=== PATIENT | female | born 1935 | race Caucasian/White ===

== ENCOUNTER → 2018-10-12 11:13 | Outpatient (CLI) | payer MEDICARE, SELFPAY ==
[2018-10-12 12:23] LABS: Absolute Lymphocyte Count 2.08 X10^3/ul (0.83-4.51); Absolute Neutrophil Count 3.8 X10^3/uL (2.0-7.7); Basophil# 0.03 X10^3/uL; Basophil% 0.5 % (0-1); Eosinophil# 0.12 X10^3/uL; Eosinophils% 1.9 % (0-5); Hematocrit 42.7 % (37-47); Hemoglobin 13.9 g/dl (12.0-15.0); Lymphocyte # 2.08 X10^3/ul (4.0); Lymphocyte % 32.2 % (19-41); Mean Corp Hgb Conc 32.6 g/gl (32-36); Mean Corpuscular Hgb 30.3 pg (27.0-32.0); Mean Corpuscular Volume 93.2 fL (81-99); Mean Platelet Vol. 10.7 fl (6.2-12.0); Monocyte# 0.44 X10^3/uL; Monocyte% 6.8 % (0-10); Neutrophil # 3.78 X10^3/uL (2.7-7.7); Neutrophil % 58.6 % (47-70); Platelet Count 195 K/mm3 (150-450); RBC Distribution Width CV 12.9 % (11.6-14.6); RBC Distribution Width SD 43.9 fl (35.1-43.9); Red Blood Count 4.58 M/mm3 (4.2-5.4); White Blood Count 6.5 K/mm3 (4.4-11.0)
[2018-10-12 12:43] LABS: POSITIVE COUNT NO; POSITIVE DIFFERENTIAL NO; POSITIVE MORPHOLOGY NO
[2018-10-12 12:59] LABS: ALB/GLOB Ratio 1.1 RATIO (0.9-2.4); AST(SGOT) 21 U/L (15-37); Alanine Aminotransfer ALT/SGPT 29 U/L (13-56); Albumin, Serum 3.8 g/dL (3.2-5.0); Alkaline Phosphatase 66 U/L (45-117); Anion Gap 7 (5-15); BUN 13 mg/dL (7-18); BUN/Creat Ratio 17.5 RATIO (10-20); Calcium,Total 8.7 mg/dL (8.5-10.1); Chloride 104 mmol/L (98-107); Creatinine, Serum 0.74 mg/dL (0.55-1.02); EST Glomerular Filtration Rate 80 mL/min (>60); Est Glom Filt Rate - Afr Amer 96 mL/min (>60); Globulin 3.6 g/dL (2.2-4.2); Glucose 121 mg/dL (74-106); Potassium 3.9 mmol/L (3.5-5.1); Protein, Total 7.4 g/dL (6.4-8.2); Sodium Level 139 mmol/L (136-145); Thyroid Stim Hormone (TSH) 0.36 uIU/mL (0.358-3.74)
--- OUTSIDE RECORDS SUMMARY | 2018-11-24 02:55 | XMS RPT_ITS | Clinical Summary ---
:1935 Author Organization [facility], [facility] Address [address] [place] [address] Phone Care Team Providers Name Role Phone Kilo Sr Unavailable Conditions or Problems Problem Name Problem Onset Status Entry Provider Comment Standard Annotate Code Date Date Description Strain of S76.011A Active Kilo Danielle Strain of muscle, fascia (ICD-10-C 05/04 05/04 Holger GAINES muscle, fascia and tendon of M) and tendon of right hip, right hip, initial initial encounter encounter Contusion of S30.0xxA Active Kilo Danielle Contusion of lower back and (ICD-10-C 05/04 05/04 Holger GAINES lower back and pelvis, initial M) pelvis, initial encounter encounter Sciatica [id number] Active Kilo Danielle Sciatica (SNOMED 05/04 05/[address]) 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-10-C 01/01 [place] tis, UNSPECIFIED SITE M) 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 HYPERTENSION 77307238 Active Esther Hypertensive (SNOMED 01/[address]) LINING 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 HYPOTHYROIDISM 46894257 Active Esther Hypothyroidism (SNOMED [address]) 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 INSERTER Medications Medication Instructions Start Stop Generic Name NDC Provider Date Date NAPROXEN 500 MG 1 tablet twice NAPROXEN 90816737386 Kilo Danielle TABS daily Holger GAINES BACLOFEN 10 MG 1 tablet 3 BACLOFEN 98613796813 Kilo Danielle TABS taimes a day Holger GAINES needed LEVOTHYROXINE One tablet by LEVOTHYROXINE 05568999084 Adelaide Ospina SODIUM 75 MCG TABS mouth daily SODIUM Jayme GAINES ATENOLOL 25 MG One tablet by ATENOLOL [id number] Adelaide E TABS mouth daily Jayme GAINES CYCLOBENZAPRINE 1 tablet 3 CYCLOBENZAPRINE 99516819454 Kilo Danielle HCL 10 MG TABS times a day HCL Holger GAINES needed LEVOTHROID 100 MCG One tablet by LEVOTHYROXINE 12256376263 Esther TABS mouth daily SODIUM [place] LINING INSERTER LORAZEPAM 0.5 MG One tablet by LORAZEPAM 44423778442 Esther TABS mouth twice [place] daily LINING INSERTER LORAZEPAM 0.5 MG One tablet by LORAZEPAM 84639670931 Kilo M TABS mouth twice 05/04 Holger GAINES daily Medications Administered No information available. Allergies, Adverse Reactions, Alerts Observed no known allergies at Results Date Name Value Unit Range Flag Description Clinical Lists Update: Preload POTASSIUM 3.7 mmol/L potassium, serum Lab Report: T4 T4, TOTAL 9.0 ug/dL 4.8-13.9 N thyroxine, serum, total Lab Report: TSH TSH 1.72 u[iU]/mL 0.358-3.74 N thyroid stimulating hormone, serum Office Visit: UC: low back contusion, right hip strain MEDS REVIEW Done Documentation of current medications (procedure) FALLRSKASSES No Fall risk assessment SMOK STATUS Never smoker Tobacco use [facility] Plan of Care Type Date Detail Appointment 03:00 PM Kilo GAINES, [address] [place] [address], [address], [place], [address], Pending order X-Ray, Hip, unilateral, with pelvis; 2-3 views Pending order X-Ray, Spine, Lumbosacral 2-3 views Procedures No information available. Vital Signs Date Name Value Unit Description BMI (Body Mass Index) 28.35 kg/m2 Body Mass Index [Ratio] Body Temperature 98.0 [degF] temperature E&M BP Diastolic 82 mm[Hg] blood pressure, diastolic - 8462-4 BP Systolic 126 mm[Hg] blood pressure, systolic - 8480-6 Heart Rate 61 /min pulse rate E&M - 8867-4 Height 62 [in_us] height E&M - 8302-2 O2 % BldC Oximetry 96 % oxygen saturation, oximetry Respiratory Rate 18 /min respiratory rate E&M - 9279-1 Weight Measured 155.0 [lb_av] weight E&M - 3141-9 Weight Measured 73.18 kg weight in kilograms E&M
--- OUTSIDE RECORDS SUMMARY | 2018-11-24 02:55 | XMS RPT_ITS ---
:1935 Author Organization [facility] Care Team Providers Name Role Phone Jose Fitzgerald Attending Unavailable Jose Fitzgerald Primary Care Unavailable Jose Fitzgerald Attending Unavailable Jose Fitzgerald Primary Care Unavailable PROBLEMS PROBLEMS DATE TYPE CONDITION / CODE ATTENDING STATUS SOURCE 10/12/2018 Unknown I10 - Essential LiaJose Active [place] (primary) [facility] hypertension / Hospital I10(ICD-10) Repository 10/12/2018 Unknown E03.9 - LiaJose Active [place] Hypothyroidism, [facility] unspecified / Hospital E03.9(ICD-10) Repository 12/02/2017 Unknown M79.601 - Pain in Jose Fitzgerald Active [place] right arm / [facility] M79.601(ICD-10) Hospital Repository PROCEDURES PROCEDURES No Procedure Records FoundRESULTS RESULTS CBC W/DIFF, AUTOMATED Collected: 10/12/2018 Status: F Source: [place] 11:14 AM [facility] REPOSITORY TYPE CODE TESTS RESULT OUT OF RANGE REFERENCE UNITS LAB L100.1000 4.4-11.0 K/mm3 Normal WBC 6.5 LAB L100.1200 4.2-5.4 M/mm3 Normal RBC 4.58 LAB L100.1300 12.0-15.0 g/dl Normal HGB 13.9 LAB L100.1400 37-47 % Normal HCT 42.7 LAB L100.1500 81-99 fL Normal MCV 93.2 LAB L100.1600 27.0-32.0 pg Normal MCH 30.3 LAB L100.1700 32-36 g/gl Normal MCHC 32.6 LAB L100.1810 11.6-14.6 % Normal RDW CV 12.9 LAB L100.1820 35.1-43.9 fl Normal RDW SD 43.9 LAB L100.1900 150-450 K/mm3 Normal PLT 195 LAB L100.2000 6.2-12.0 fl Normal MPV 10.7 LAB L100.2100 47-70 % Normal NEUT% 58.6 LAB L100.2200 19-41 % Normal LY% 32.2 LAB L100.2300 0-10 % Normal MONO% 6.8 LAB L100.2400 0-5 % Normal EO% 1.9 LAB L100.2500 0-1 % Normal BASO% 0.5 LAB L100.2550 0.0-0.9 % Normal IM GRAN % 0.000 Result Comment: IG% - Immature Granulocytes (promyelocytes, myelocytes and metamyelocytes) > 1% indicates that a LEFT SHIFT is Present. LAB L100.2620 2.0-7.7 X10 3/uL Normal Absolute Neut 3.8 LAB L100.2720 0.83-4.51 X10 3/ul Normal Absolute Lymph 2.08 Performed By: #### L100.0100 #### [facility] [address] [place], [address] COMPREHENSIVE METABOLIC Collected: 10/12/2018 Status: F Source: [facility] 11:14 AM [facility] REPOSITORY TYPE CODE TESTS RESULT OUT OF RANGE REFERENCE UNITS LAB L501.0100 74-106 mg/dL High GLU 121 Result Comment: Fasting Glucose result from 100 to 125 mg/dL suggests IMPAIRED HOMEOSTASIS per A.D.A. criteria. Please note revised GLUCOSE reference range effective 2017. LAB L501.1000 7-18 mg/dL Normal BUN 13 LAB L501.1100 0.55-1.02 mg/dL Normal CREAT,SERUM 0.74 Result Comment: The validity of the calculated GFR AND GFRAA in patients over 70 years has not been determined. Clinical correlation is essential. LAB L501.1110 >60 mL/min Normal EST GFR 80 Result Comment: Non- GFR Calc LAB L501.1115 >60 mL/min Normal EST GFR - AA 96 Result Comment: GFR Calc LAB L501.1300 10-20 RATIO Normal BUN/CRE 17.5 LAB L501.1500 6.4-8.2 g/dL T Normal PROT 7.4 LAB L501.1800 3.2-5.0 g/dL Normal ALB 3.8 LAB L501.1950 2.2-4.2 g/dL Normal GLOB 3.6 LAB L501.2000 0.9-2.4 RATIO Normal A/G 1.1 LAB L501.2200 8.5-10.1 mg/dL CA Normal 8.7 LAB L501.4100 15-37 U/L Normal AST 21 LAB L501.4305 45-117 U/L Normal ALK P 66 LAB L501.4405 13-56 U/L Normal ALT 29 LAB L501.4600 0.20-1.00 mg/dL T Normal BILI 0.50 LAB L501.5300 136-145 mmol/L NA Normal 139 LAB L501.5600 3.5-5.1 mmol/L K Normal 3.9 LAB L501.5900 98-107 mmol/L CL Normal 104 LAB L501.6100 21.0-32.0 mmol/L Normal CO2 28.0 LAB L501.6200 5-15 Normal GAP 7 Performed By: #### L500.4050, L501.9520 #### [facility] [address] [place], [address] THYROID STIM HORMONE Collected: 10/12/2018 Status: F Source: [place] (T[facility]) 11:14 AM [facility] REPOSITORY TYPE CODE TESTS RESULT OUT OF RANGE REFERENCE UNITS LAB L501.9520 0.358-3.74 uIU/mL Normal TSH 0.36 Performed By: #### L500.4050, L501.9520 #### [facility] [address] [place], [address] ERYTHROCYTE SED RATE Collected: 12/02/2017 Status: F Source: [place] 11:36 AM [facility] REPOSITORY TYPE CODE TESTS RESULT OUT OF RANGE REFERENCE UNITS LAB L102.0000 0-30 mm/hr Normal SED RATE 9 Performed By: #### L101.9900 #### [facility] [address] [place], [address] CRP Collected: 12/02/2017 Status: F Source: [place] 11:36 AM [facility] REPOSITORY TYPE CODE TESTS RESULT OUT OF RANGE REFERENCE UNITS LAB L501.6710 0.0-3.0 mg/L Normal < 2.90 C-REACTIVE PROT Result Comment: C-Reactive Protein (CRP) provides useful information for the diagnosis, therapy and monitoring of inflammatory processes and associated diseases. For the evaluation of Relative Risk for Cardiovascular Disease, a High Sensitivity CRP (HSCRP) should be ordered. Performed By: #### L501.6710 #### [facility] [address] [place], [address] ANTINUCLEAR ANTIBODIES Collected: 12/02/2017 Status: F Source: [place] DIRECT 11:36 AM [facility] REPOSITORY TYPE CODE TESTS RESULT OUT OF RANGE REFERENCE UNITS LAB L3100.5475 Negative Normal Negative KELLI-DIRECT Result Comment: Performed at: - [facility] [id number] Piping Drafter: Artie Rodriguez PhD, Phone: [phone] Performed By: #### L3100.5475 #### [facility] (refer to report for specific site) refer to report for address and phone number ALLERGIES ALLERGIES DATE TYPE / CODE NAME / CODE REACTION SEVERITY SOURCE 05/17/[address] [facility] Allergy/4160 Allergies/F00 [facility] [address](SNOMED 2986120(RXNOR Repository CT) M) ENCOUNTERS ENCOUNTERS ADMIT/DISCHARGE ACCOUNT ADMITTING ENCOUNTER LOCATION SOURCE NUMBER CLASS 10/12/2018 [id number] Ambulatory [place] 5 [facility] ing:BFHLAB Repository 12/02/2017 [id number] Ambulatory [place] 9 [facility] ing:BFHLAB Repository PAYERS PAYERS ENCOUNTER GUARANTOR PAYER SUBSCRIBER SOURCE 10/12/2018 Sarah Primary Sarah [place] [id number] Insurance:[facility] CainB: [id number]: Repository [address]Emt: (031) [id number] [phone] () Date:[id number] [place] [address]HC: 10/12/2018 Secondary NOT GIVENUNK [place] Insurance:SELF PAY [facility] Number: Effective Repository Date:2018-10-12 12/02/2017 Sarah Primary Sarah [id number] Insurance:[employer] BenDOB: [place] [id number] Number: Repository [id number]: (933) [id number] [phone] () Date:[id number], [place] [address]GD: 12/02/2017 Secondary NOT GIVENUNK [place] Insurance:SELF PAY [facility] Number: Effective Repository Date:2017-12-02
--- OUTSIDE RECORDS SUMMARY | 2018-11-24 02:55 | XMS RPT_ITS | Clinical Summary ---
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 HYPOTHYROIDISM 15070786 Active Esther Hypothyroidism (SNOMED [address]) 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 Medications Medication Instructions Start Stop Generic Name NDC Provider Date Date NAPROXEN 500 MG 1 tablet twice NAPROXEN 64851640422 Kilo Danielle TABS daily Holger GAINES BACLOFEN 10 MG 1 tablet 3 BACLOFEN 05321026808 Kilo Danielle TABS taimes a day Holger GAINES needed LEVOTHYROXINE One tablet by LEVOTHYROXINE 20763221882 Adelaide Ospina SODIUM 75 MCG TABS mouth daily SODIUM Jayme GAINES ATENOLOL 25 MG One tablet by ATENOLOL 09010367555 Adelaide E TABS mouth daily Jayme GAINES CYCLOBENZAPRINE 1 tablet 3 CYCLOBENZAPRINE 56951270210 Kilo Danielle HCL 10 MG TABS times a day HCL Holger GAINES needed LEVOTHROID 100 MCG One tablet by LEVOTHYROXINE 61152313227 Esther TABS mouth daily SODIUM [place] 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 Plan of Care Type Date Detail Pending order X-Ray, Hip, unilateral, with pelvis; [...]
== END ==
PROVIDERS: Family Provider Family Medicine; PCP Family Medicine; Visit Provider Family Medicine
DX: I10 Essential (primary) hypertension (principal); E03.9 Hypothyroidism, unspecified
CPT/HCPCS: 36415; 80053; 84443; 85025

== ENCOUNTER → 2019-03-04 10:10 | Outpatient (CLI) | payer MEDICARE, SELFPAY ==
[2019-03-04 13:17] LABS: Thyroid Stim Hormone (TSH) 1.03 uIU/mL (0.358-3.74)
== END ==
PROVIDERS: Family Provider Family Medicine; PCP Family Medicine; Visit Provider Family Medicine
DX: E03.9 Hypothyroidism, unspecified (principal)
CPT/HCPCS: 36415; 84443

== ENCOUNTER 2019-09-29 08:36 | Day surgery (SDC) | payer MEDICARE, SELFPAY ==
[2019-09-29 09:34] VITALS: BP 158/75; PULSE 74; RESP 16; TEMP 36.7; O2SAT 96; BMI 27.2
[2019-09-29] MEDS: Povidone Iodine 30 ML Opthalmic Sol 1 DRP (10:50)
[2019-09-29 11:25] VITALS: BP 145/76; BP 158/75; PULSE 47; RESP 16; TEMP 36.2; O2SAT 92
--- NOTE | 2019-09-29 11:26 | PCM.DC.CATCL ---
Allergies/Adverse Reactions: Allergies No Known Allergies Allergy (Verified 09/22/19 12:14) Medications to take at Discharge Atenolol [Tenormin] 12.5 mg PO DAILY 05/17/17 Levothyroxine [Synthroid] 75 mcg PO DAILY 05/17/17 Cataract Instructions: -Take a pain reliever such as Tylenol, Aspirin or Ibuprofen if needed for eye aching or pain. If this is not enough relief for you pain, call your doctor (or the doctor mason tender restoration labor), even at night. -You are scheduled for a follow-up appointment at [facility] the day after surgery. You should have someone drive you. -Transient pain and irritation are due to the incision that was made at the time of surgery and do not indicate any trouble. Our office numbers are . If there is no answer, or if it is after our normal business hours, call your surgeon. My home phone number is: Dr. Carly Harris INSTRUCTIONS FOLLOWING TOPICAL ANESTHETIC CATARACT SURGERY Protect operated eye with glasses or metal shield at all times. Instill one drop of Polytrim (or other antibiotic drop), one drop of Prednisolone and one drop of Acular in the operated eye four times a day (breakfast, lunch, dinner, and bedtime) until the doctor tells you to quit or decrease them. Wait 3-5 minutes between each drop. Please begin these immediately upon arriving at home. if your surgery is in t he afternoon, try to use the drops at least three more times the day of surgery and again the following morning before your appointment. INSTRUCTIONS FOLLOWING RETROBULBAR CATARACT SURGERY Keep the eye patch and metal shield on until you see your surgeon the day after surgery - these will be removed in the office that day. Do not drive while the patch is on your eye. You will be instructed about the use of drops for the operated eye at that visit. Primary Care Physician: Jessa Alberto MD [Primary Care Provider] -
--- NOTE | 2019-09-29 11:27 | OP.PCM_ITS ---
Report of Operation Date of Procedure: 09/29/19 Pre-Operative Diagnosis: Cataract OD Post-Operative Diagnosis: same Surgery/Procedure Performed:: PEM IOL OD Description of Surgical Findings:: cataract Type of Anesthesia:: MAC and Topical Anesth Estimated Blood Loss (mL): none Description of Procedure: Indications for Procedure: 84 yo female with history of worsening vision in the right eye secondary to cataract. After discussion of the risks, benefit, alternatives, of cataract surgery the patient agreed to proceed. Description of Procedure: The patient was brought to the operating room where a time out was performed prior to the start of the procedure. Anesthesia team induced light sedation. The eye was prepped and draped in the normal sterile fashion for eye surgery. A alek blade was used to create a paracentesis incision. Preservative free lidocaine, followed by viscoat was instilled into the anterior chamber. A keratome was used to create a clear corneal biplanar incision at the temporal limbus. A cystotome was used to begin the capsulorhexis which was completed in a continuous curvilenear fashion with forceps. BSS on a fisher cannula was used to hydrate beneath the lens capsule until the lens was noted to be freely mobile in the capsular bag. Phacoemulsification was used to remove the lens in a divide and conquer technique. The remaining cortical material was removed using irrigation and aspiration. The capsular bag was noted to be intact. provisc was used to inflate the capsular bag and a tecnis 22.5 diopter lens was placed into the capsular bag and adjusted using a maritza hook. The remaining viscoelastic was removed. The wounds were hydrated and a 10-0 nylon was used to secure the main incision. The incision was noted to be wate rtight with a weck cell sponge. The patient was taken to the recovery room with instructions to follow up in the clinic the following day. - Complications none - Admit VTE Documentation Reason prophylaxis not ordered:: Procedure Not Indicated - patient can ambulate
[2019-09-29 11:30] VITALS: BP 138/77; BP 158/75; PULSE 50; RESP 16; O2SAT 92
[2019-09-29 11:35] VITALS: BP 148/69; BP 158/75; PULSE 46; RESP 16; O2SAT 92
[2019-09-29 11:40] VITALS: BP 140/69; BP 158/75; PULSE 60; RESP 16; TEMP 36.1; O2SAT 94
[2019-09-29 12:35] VITALS: BP 158/75
== END 2019-09-29 12:37 | disposition home or self-care (01) ==
LOC: SDC 08:39 → AC 08:41
PROVIDERS: Family Provider Family Medicine; PCP Family Medicine; Referring Provider Ophthalmology; Visit Provider Ophthalmology
PROC: (CPT 66982; principal; 2019-09-29 10:20)
DX: H25.813 Combined forms of age-related cataract, bilateral (principal); H04.123 Dry eye syndrome of bilateral lacrimal glands; I10 Essential (primary) hypertension; Z78.0 Asymptomatic menopausal state; Z79.899 Other long term (current) drug therapy
CPT/HCPCS: 00142; 66982; J7120

== ENCOUNTER 2019-10-20 09:35 | Day surgery (SDC) | payer MEDICARE, SELFPAY ==
[2019-10-20 09:49] VITALS: BP 152/66; PULSE 59; RESP 16; TEMP 36.3; O2SAT 94; BMI 26.9
[2019-10-20] MEDS: Lactated Ringers 1,000 ML 100 ML IV (09:58)
[2019-10-20] MEDS: Tetracaine 0.5% Ophthalmic Bottle 1 DRP OP (11:03)
[2019-10-20] MEDS: Povidone Iodine 30 ML Opthalmic Sol 1 DRP (11:05)
--- NOTE | 2019-10-20 11:21 | DCINST_ITS ---
Allergies/Adverse Reactions: Allergies No Known Allergies Allergy (Verified 10/18/19 14:04) Medications to take at Discharge Atenolol [Tenormin] 12.5 mg PO DAILY 05/17/17 Levothyroxine [Synthroid] 75 mcg PO DAILY 05/17/17 Cataract Instructions: -Take a pain reliever such as Tylenol, Aspirin or Ibuprofen if needed for eye aching or pain. If this is not enough relief for you pain, call your doctor (or the doctor distribution transformer assembler), even at night. -You are scheduled for a follow-up appointment at [facility] the day after surgery. You should have someone drive you. -Transient pain and irritation are due to the incision that was made at the time of surgery and do not indicate any trouble. Our office numbers are . If there is no answer, or if it is after our normal business hours, call your surgeon. My home phone number is: Dr. Carly Harris INSTRUCTIONS FOLLOWING TOPICAL ANESTHETIC CATARACT SURGERY Protect operated eye with glasses or metal shield at all times. Instill one drop of Polytrim (or other antibiotic drop), one drop of Prednisolone and one drop of Acular in the operated eye four times a day (breakfast, lunch, dinner, and bedtime) until the doctor tells you to quit or decrease them. Wait 3-5 minutes between each drop. Please begin these immediately upon arriving at home. if your surgery is in t he afternoon, try to use the drops at least three more times the day of surgery and again the following morning before your appointment. INSTRUCTIONS FOLLOWING RETROBULBAR CATARACT SURGERY Keep the eye patch and metal shield on until you see your surgeon the day after surgery - these will be removed in the office that day. Do not drive while the patch is on your eye. You will be instructed about the use of drops for the operated eye at that visit. Primary Care Physician: Jessa Alberto MD [Primary Care Provider] -
[2019-10-20 11:24] VITALS: BP 130/82; BP 152/66; PULSE 58; RESP 16; TEMP 36.4; O2SAT 93
[2019-10-20 11:30] VITALS: BP 145/94; BP 152/66; PULSE 57; RESP 16; O2SAT 92
[2019-10-20 11:35] VITALS: BP 152/66; BP 159/79; PULSE 53; RESP 16; O2SAT 93
[2019-10-20 11:36] VITALS: BP 151/67; BP 152/66; PULSE 52; RESP 16; TEMP 36.4; O2SAT 93
[2019-10-20 11:50] VITALS: BP 152/66
--- NOTE | 2019-10-20 12:19 | OP.PCM_ITS ---
Report of Operation Date of Procedure: 10/20/19 Pre-Operative Diagnosis: Retained Lens Fragment Right Eye Post-Operative Diagnosis: same Surgery/Procedure Performed:: Aspiration of retained lens fragment right eye Description of Surgical Findings:: Indications for procedure: 74 yo female with history of previous cataract surgery, noted to have a retained lens fragment in the anterior chamber post operatively. We attempted to continue topical steroid to dissolve fragment but it persistent. Risks, benefits, alternatives of removal of lens fragment was discussed with patient and she agreed to proceed. Description of procedure: The patient was brought to the operating room where a time out was performed prior to the start of the procedure. The eye was prepped and draped in the usual sterile fashion for eye surgery. The suture from the m ain incision was cut. A cyclodialysis spatula was used to open the main incision and paracentesis. Preservative free lidocaine was instilled into the anterior chamber and the fragment was irrigated from the inferior angle and aspirated. The main incision and paracentesis were hydrated and the main incision was sutured close. She was taken to the recovery room in a stable condition with instructions to follow up in the clinic. Type of Anesthesia:: MAC and Topical Anesth Estimated Blood Loss (mL): none - Complications none - Admit VTE Documentation Reason prophylaxis not ordered:: Procedure Not Indicated - patient able to ambulate
== END 2019-10-20 12:03 | disposition home or self-care (01) ==
LOC: SDC 09:35 → AC 09:36
PROVIDERS: Family Provider Family Medicine; PCP Family Medicine; Referring Provider Ophthalmology; Visit Provider Ophthalmology
DX: H59.021 Cataract (lens) fragments in eye following cataract surgery, right eye (principal); I10 Essential (primary) hypertension; E07.9 Disorder of thyroid, unspecified; Z79.899 Other long term (current) drug therapy; Z78.0 Asymptomatic menopausal state; Z98.41 Cataract extraction status, right eye
CPT/HCPCS: 00142; 66840; J7120

== ENCOUNTER → 2019-10-25 08:37 | Outpatient (CLI) | payer MEDICARE, SELFPAY ==
[2019-10-20 09:49] VITALS: BMI 26.9
[2019-10-25 09:47] LABS: Absolute Lymphocyte Count 2.81 X10^3/uL (0.83-4.51); Absolute Neutrophil Count 3.7 X10^3/uL (2.0-7.7); Basophil# 0.04 X10^3/uL; Basophil% 0.5 % (0-1); Eosinophil# 0.21 X10^3/uL; Eosinophils% 2.8 % (0-5); Hematocrit 44.6 % (37-47); Hemoglobin 14.8 g/dL (12.0-15.0); Lymphocyte # 2.81 X10^3/ul (4.0); Mean Corp Hgb Conc 33.2 g/dL (32-36); Mean Corpuscular Hgb 31.6 pg (27.0-32.0); Mean Corpuscular Volume 95.1 fL (81-99); Monocyte# 0.64 X10^3/uL; Monocyte% 8.7 % (0-10); NRBC Flagged by Analyzer 0 % (0-5); Neutrophil # 3.67 X10^3/uL (2.7-7.7); Neutrophil % 49.7 % (47-70); Platelet Count 194 K/mm3 (150-450); RBC Distribution Width CV 12.2 % (11.6-14.6); RBC Distribution Width SD 42.6 fl (35.1-43.9); Red Blood Count 4.69 M/mm3 (4.2-5.4); White Blood Count 7.4 K/mm3 (4.4-11.0)
[2019-10-25 10:23] LABS: ALB/GLOB Ratio 1.1 RATIO (0.9-2.4); AST(SGOT) 26 U/L (15-37); Alanine Aminotransfer ALT/SGPT 33 U/L (13-56); Albumin, Serum 4.1 g/dL (3.2-5.0); Alkaline Phosphatase 68 U/L (45-117); Anion Gap 6 (5-15); BUN 14 mg/dL (7-18); BUN/Creat Ratio 16.6 RATIO (10-20); Calcium,Total 8.8 mg/dL (8.5-10.1); Chloride 106 mmol/L (98-107); Cholesterol 237 mg/dL (200); Creatinine, Serum 0.84 mg/dL (0.55-1.02); EST Glomerular Filtration Rate 68 mL/min (>60); Est Glom Filt Rate - Afr Amer 83 mL/min (>60); Globulin 3.6 g/dL (2.2-4.2); Glucose 117 mg/dL (74-106); High Density Lipoprotein 45 mg/dL; Protein, Total 7.7 g/dL (6.4-8.2); Sodium Level 140 mmol/L (136-145); Thyroid Stim Hormone (TSH) 2.56 uIU/mL (0.358-3.74); Triglycerides 212 mg/dL; Very Low Density Lipoprotein 42 mg/dL (5-40)
[2019-10-26 13:02] LABS: Hemoglobin A1c 6.5 % (4.2-6.3)
== END ==
PROVIDERS: Family Provider Family Medicine; PCP Family Medicine; Referring Provider Family Medicine; Visit Provider Family Medicine
DX: E03.9 Hypothyroidism, unspecified (principal); R73.01 Impaired fasting glucose; E78.5 Hyperlipidemia, unspecified
CPT/HCPCS: 36415; 80053; 80061; 83036; 84443; 85025

== ENCOUNTER → 2020-11-01 08:48 | Outpatient (CLI) | payer MEDICARE, SELFPAY ==
[2020-11-01 12:46] LABS: Absolute Neutrophil Count 5.4 X10^3/uL (2.0-7.7); Basophil# 0.05 X10^3/uL; Basophil% 0.6 % (0-1); Eosinophil# 0.21 X10^3/uL; Eosinophils% 2.7 % (0-5); Hematocrit 41.7 % (37-47); Lymphocyte % 19.2 % (19-41); Mean Corp Hgb Conc 33.6 g/dL (32-36); Mean Corpuscular Hgb 31.9 pg (27.0-32.0); Mean Platelet Vol. 11.5 fl (6.2-12.0); Monocyte# 0.65 X10^3/uL; Monocyte% 8.3 % (0-10); NRBC Flagged by Analyzer 0 % (0-5); Neutrophil % 68.9 % (47-70); Platelet Count 186 K/mm3 (150-450); RBC Distribution Width CV 12.4 % (11.6-14.6); Red Blood Count 4.39 M/mm3 (4.2-5.4); White Blood Count 7.8 K/mm3 (4.4-11.0)
[2020-11-01 13:01] LABS: ALB/GLOB Ratio 1.1 RATIO (0.9-2.4); AST(SGOT) 24 U/L (15-37); Alanine Aminotransfer ALT/SGPT 32 U/L (13-56); Albumin, Serum 3.8 g/dL (3.2-5.0); Alkaline Phosphatase 70 U/L (45-117); Anion Gap 9 (5-15); BUN 19 mg/dL (7-18); BUN/Creat Ratio 24.2 RATIO (10-20); Calcium,Total 8.7 mg/dL (8.5-10.1); Chloride 106 mmol/L (98-107); Cholesterol 209 mg/dL (200); Creatinine, Serum 0.78 mg/dL (0.55-1.02); EST Glomerular Filtration Rate 74 mL/min (>60); Est Glom Filt Rate - Afr Amer 90 mL/min (>60); Globulin 3.4 g/dL (2.2-4.2); Glucose 142 mg/dL (74-106); High Density Lipoprotein 39 mg/dL; Potassium 3.8 mmol/L (3.5-5.1); Protein, Total 7.2 g/dL (6.4-8.2); Sodium Level 140 mmol/L (136-145); Thyroid Stim Hormone (TSH) 1.44 uIU/mL (0.358-3.74); Triglycerides 191 mg/dL; Very Low Density Lipoprotein 38 mg/dL (5-40)
== END ==
PROVIDERS: PCP Family Medicine; Visit Provider Family Medicine
DX: I10 Essential (primary) hypertension (principal); E03.9 Hypothyroidism, unspecified; R73.03 Prediabetes
CPT/HCPCS: 36415; 80053; 80061; 84443; 85025

== ENCOUNTER 2021-10-11 12:00 | Inpatient (IN) | payer MEDICARE, SELFPAY ==
[2021-10-11] VITALS (16 sets, daily range): BP systolic 103–165; BP diastolic 69–93; PULSE 75–139; RESP 20–32; TEMP 36.6–36.8; O2SAT 66–97; BMI 26.5; BMI 26.7
--- NOTE | 2021-10-11 12:57 | EKG12_ITS ---
Test Reason : SOB Blood Pressure : / mmHG Vent. Rate : 089 BPM Atrial Rate : 089 BPM P-R Int : 198 ms QRS Dur : 128 ms QT Int : 418 ms P-R-T Axes : 048 104 028 degrees QTc Int : 508 ms Sinus rhythm with Premature supraventricular complexes Right bundle branch block Abnormal ECG Confirmed by MAR KILLIAN, YESY ([id number]), city editor NAPOLEON SAVAGE ([id number]) on 10/15/2021 8:54:28 AM Referred By: PITER/DANIEL Confirmed By:YESY MANUEL MD
--- NOTE | 2021-10-11 12:58 | EDS_ITS ---
HPI History of Present Illness Chief Complaint: Shortness of Breath Informant: patient and family Narrative Narrative: 86-year-old female arriving to the emergency department with shortness of breath. The patient states that she has been sick for 2 weeks. She had some runny nose and a cough. She states she has been very fatigued. Arriving in the emergency department was noted that she was 66% on room air. The patient denies any chest pain. She denies any known lung or cardiac illnesses. She denies any fever. She denies diarrhea but family notes that she has been having fever. She notes significantly decreased p.o. intake. Patient is unvaccinated against Covid [facility] Medical History Hypertension Hypothyroidism Home Medications atenolol [Tenormin] 12.5 mg PO DAILY 05/17/17 [History Last Taken 10/20/19] levothyroxine 75 mcg PO DAILY 05/17/17 [History Last Taken 09/29/19 0730] Allergy/AdvReac Type Severity Reaction Status Date / Time No Known Allergies Allergy Verified 10/11/21 12:14 Social History (Updated 10/11/21 @ 12:[address] Colin Mccarthy DO) Smoking Status: Never smoker substance use type: does not use ROS ROS ED Constitutional Constitutional ED: Denies chills, fever(s) or weight loss Eyes Eyes: Denies change in vision or diplopia ENT ENT ED: Reports rhinorrhea; Denies ear pain or sore throat Cardiovascular Cardiovascular: Denies chest pain, orthopnea, palpitations or racing heartbeat Respiratory/Chest Respiratory/Chest: Reports cough, dyspnea and dyspnea on exertion; Denies orthopnea Gastrointestinal Gastrointestinal: Denies abdominal pain, diarrhea, nausea or vomiting Genitourinary Genitourinary ED: Denies dysuria, hematuria or urinary frequency Musculoskeletal Musculoskeletal: Denies arthralgias or myalgias Integumentary Denies abscess or rash Neurologic Neurologic: Denies headache(s) or weakness Psychiatric Psychiatric: Denies anxiety, depression, suicidal ideation or suicidal thoughts Endocrine Endocrinology: Denies polydipsia, polyphagia or polyuria Allergic/Immunologic Allergic/Immunologic ED: Denies mouth swelling, tongue swelling or urticaria EXAM Physical Exam Const Vital Signs: 10/11/21 12:07 10/11/21 12:45 10/11/21 12:46 Temperature 98 F 98 F Temperature Source Temporal Temporal Pulse Rate 101 H 109 H 109 H Respiratory Rate 30 H 32 H 32 H Respiratory Effort Short of Breath Labored Blood Pressure 103/90 H 151/81 H Blood Pressure Mean 94 104 Pulse Ox 66 95 95 Oxygen Delivery Method Room Air Nasal Cannula Nasal Cannula Oxygen Flow Rate (L/min) 12 12 10/11/21 13:14 10/11/21 13:20 10/11/21 13:36 Temperature 98 F Temperature Source Temporal Pulse Rate 139 H 139 H 86 Respiratory Rate 32 H 28 H Respiratory Effort Blood Pressure 151/81 H 144/84 H Blood Pressure Mean 104 104 Pulse Ox 91 93 Oxygen Delivery Method Nasal Cannula Nasal Cannula Nasal Cannula Oxygen Flow Rate (L/min) 15 13 15 Positive well nourished and well developed General Appearance ED: well developed HEENT Reports normocephalic, head/scalp atraumatic, TM's clear and dry mucous membranes atraumatic Tympanic Membrane ED: Yes TM's clear Mouth ED: Yes dry mucous membranes Mouth: dry mucous membranes Eyes PERRL and EOMs intact bilaterally Neck no lymphadenopathy, supple and no JVD Resp clear to auscultation bilaterally Resp Narrative: Patient is tachypneic Cardio regular rhythm and no murmurs Rate: tachycardic GI normal to inspection, nondistended, normoactive bowel sounds and non-tender Palpation: soft; Negative for rebound tenderness present Back/Spine no CVA tenderness and normal ROM Extremity normal to inspection General Extremety ED: Negative for edema General Extremity: Negative for edema Neuro oriented x3 and CN's II-XII intact bilaterally Sensorium / Orientation: alert Motor Exam: strength 5/5 throughout Psych mental status grossly normal Mood & Affect: Negative for depressed or tearful Skin no rashes or lesions noted and no wounds MDM MDM MDM Narrative Medical decision making narrative: My interpretation of the chest x-ray is multifocal infiltrates. White count 10.2 hemoglobin 15.1 with platelets of 193. D-dimer significantly elevated at 10.5 beta natruretic peptide is 306. Normal creatinine. Potassium 3.1. She received 40 mEq p.o. Lactic acid is elevated at 3.8. I think this is most likely due to hypoxemia rather than shock. CTA of the chest demonstrates pulmonary embolisms and findings consistent with COVID-19 pneumonitis. Rapid Covid is negative so a PCR was ordered. Patient was given Decadron and started on a heparin drip. There is some evidence of right heart strain. Her troponin is negative and her natruretic peptide is 300. She is not hypotensive and her heart rate has come down into the 80s. I do not think she needs alteplase at this time. Patient will be admitted Lab Data Attestation: I reviewed the patient's lab results. Labs: Laboratory Results - last 24 hr 10/11/21 10/11/21 10/11/21 13:36 13:36 13:36 WBC 10.2 RBC 4.89 Hgb 15.1 H Hct 43.1 MCV 88.1 MCH 30.9 MCHC 35.0 RDW Std Deviation 40.8 RDW Coeff of Marguerite 12.6 Plt Count 193 MPV 10.5 Immature Gran % (Auto) 0.500 Neut % (Auto) 85.3 H Lymph % (Auto) 10.1 L [place] % (Auto) 4.0 Eos % (Auto) 0.0 Baso % (Auto) 0.1 Absolute Neuts (auto) 8.7 H Absolute Lymphs (auto) 1.03 Nucleated RBC % 0 D-Dimer Quant (PE/DVT) 10.54 H* Sodium Potassium Chloride Carbon Dioxide Anion Gap BUN Creatinine Estim Creat Clear Calc Est GFR (MDRD) Af Amer Est GFR (MDRD) Non-Af BUN/Creatinine Ratio Glucose Lactic Acid Calcium Total Bilirubin AST ALT Alkaline Phosphatase Troponin I High Sens B-Natriuretic Peptide 306.0 H Total Protein Albumin Globulin Albumin/Globulin Ratio 10/11/21 10/11/21 13:36 13:36 WBC RBC Hgb Hct MCV MCH MCHC RDW Std Deviation RDW Coeff of Marguerite Plt Count MPV Immature Gran % (Auto) Neut % (Auto) Lymph % (Auto) [place] % (Auto) Eos % (Auto) Baso % (Auto) Absolute Neuts (auto) Absolute Lymphs (auto) Nucleated RBC % D-Dimer Quant (PE/DVT) Sodium 136 Potassium 3.1 L Chloride 99 Carbon Dioxide 27.0 Anion Gap 10 BUN 21 H Creatinine 1.01 Estim Creat Clear Calc 33.69 Est GFR (MDRD) Af Amer 67 Est GFR (MDRD) Non-Af 55 L BUN/Creatinine Ratio 20.8 H Glucose 171 H Lactic Acid 3.8 H* Calcium 8.7 Total Bilirubin 1.20 H AST 31 ALT 25 Alkaline Phosphatase 58 Troponin I High Sens 24 B-Natriuretic Peptide Total Protein 7.4 Albumin 2.6 L Globulin 4.8 H Albumin/Globulin Ratio 0.5 L Radiography Diagnostic Testing: Clinical Impression(s) from Imaging Studies Chest X-Ray 10/11/21 13:40 IMPRESSION: Multilobar multifocal confluent opacities predominantly in a peripheral distribution. Findings likely related to atelectasis and infectious/inflammatory etiology and can be seen with multifocal atypical pneumonia. Correlation with COVID status recommended. Electronically Signed: Mp Ng MD at 14:21 EST Tel , Service support , Chest CTA 10/11/21 14:15 IMPRESSION: 1. Bilateral pulmonary embolism with some extension into the distal left main pulmonary artery. Suspect early right heart strain. 2. Multifocal infiltrates with features commonly reported with COVID pneumonia. N.B. : The above Results were Read Back by Chintan Fernandez MD (Brooks) to Colin Mccarthy MD, and understanding confirmed on 10/11/2021 14:39:01 (ET). Electronically Signed: Chintan Fernandez MD (Brooks) at 14:40 EST , Service support , ADDENDUM: 10/11/21 1447 IMPRESSION: 1. Bilateral pulmonary embolism with some extension into the distal left main pulmonary artery. Suspect early right heart strain. 2. Multifocal infiltrates with features commonly reported with COVID pneumonia. N.B. : The above Results were Read Back by Chintan Fernandez MD (Brooks) to Colin Mccarthy MD, and understanding confirmed on 10/11/2021 14:39:01 (ET). Electronically Signed: Chintan Fernandez MD (Brooks) at 14:40 EST , Service support , EKG Initial EKG: Attestation: I personally reviewed and interpreted this EKG as follows: Comments: Sinus rhythm with a ventricular rate of 89 bpm. Noted right bun dle branch block and PAC Discharge Plan Dx/Rx/DC Orders Clinical Impression: Acute hypoxemic respiratory failure, COVID-19, Bilateral pulmonary embolism, Acute hypokalemia Disposition Disposition: Acute Care Hospital [facility]
--- NOTE | 2021-10-11 13:40 | RAD_ITS ---
INDICATION: cough EXAMINATION/TECHNIQUE: X-RAY - XR Chest 1 View COMPARISON: None. FINDINGS: LINES/DEVICES: None. Mild cardiomegaly. Confluent opacities in the bilateral mid to lower lung zapata, predominantly in a peripheral distribution. No sizable pleural effusion or pneumothorax. Remote right-sided rib fractures. Severe right glenohumeral joint osteoarthritic changes. No acute osseous abnormality. RAD/Chest 1 View (Portable) IMPRESSION: Multilobar multifocal confluent opacities predominantly in a peripheral distribution. Findings likely related to atelectasis and infectious/inflammatory etiology and can be seen with multifocal atypical pneumonia. Correlation with COVID status recommended. Electronically Signed: Mp Ng MD at 14:21 EST Tel , Service support ,
[2021-10-11 13:42] LABS: Absolute Lymphocyte Count 1.03 X10^3/uL (0.83-4.51); Absolute Neutrophil Count 8.7 X10^3/uL (2.0-7.7); Basophil# 0.01 X10^3/uL; Basophil% 0.1 % (0-1); Hematocrit 43.1 % (37-47); Hemoglobin 15.1 g/dL (12.0-15.0); Lymphocyte # 1.03 X10^3/ul (0.83-4.51); Lymphocyte % 10.1 % (19-41); Mean Corpuscular Hgb 30.9 pg (27.0-32.0); Mean Corpuscular Volume 88.1 fL (81-99); Mean Platelet Vol. 10.5 fl (6.2-12.0); Monocyte# 0.41 X10^3/uL; NRBC Flagged by Analyzer 0 % (0-5); Neutrophil # 8.73 X10^3/uL (2.7-7.7); Neutrophil % 85.3 % (47-70); Platelet Count 193 K/mm3 (150-450); RBC Distribution Width CV 12.6 % (11.6-14.6); RBC Distribution Width SD 40.8 fl (35.1-43.9); Red Blood Count 4.89 M/mm3 (4.2-5.4); White Blood Count 10.2 K/mm3 (4.4-11.0)
[2021-10-11 14:03] LABS: D-Dimer Quantitative (DVT/PE) 10.54 FEU/ug/m (0.27-0.49)
[2021-10-11 14:04] LABS: ALB/GLOB Ratio 0.5 RATIO (0.9-2.4); AST(SGOT) 31 U/L (15-37); Alanine Aminotransfer ALT/SGPT 25 U/L (13-56); Albumin, Serum 2.6 g/dL (3.2-5.0); Alkaline Phosphatase 58 U/L (45-117); Anion Gap 10 (5-15); BUN 21 mg/dL (7-18); BUN/Creat Ratio 20.8 RATIO (10-20); Calcium,Total 8.7 mg/dL (8.5-10.1); Chloride 99 mmol/L (98-107); Creatinine, Serum 1.01 mg/dL (0.55-1.02); EST Glomerular Filtration Rate 55 mL/min (>60); Est Glom Filt Rate - Afr Amer 67 mL/min (>60); Estimated Creatinine Clearance 33.69 ml/min; Globulin 4.8 g/dL (2.2-4.2); Glucose 171 mg/dL (74-106); Potassium 3.1 mmol/L (3.5-5.1); Protein, Total 7.4 g/dL (6.4-8.2); Sodium Level 136 mmol/L (136-145); Troponin-I HS 24 pg/mL (3.0-54.0)
--- NOTE | 2021-10-11 14:15 | CT_ITS ---
STUDY: CTA CHEST REASON FOR EXAM: Female, 86 years old. Cough RADIATION DOSAGE (If Supplied By Facility): CTDIvol = ( 12.96 ) mGy, DLP = ( 420.76 ) mGycm TECHNIQUE: The examination was performed with the intravenous administration of IV 100mL Isovue-370. Post-processing of the angiographic images was performed, with multiplanar reformation and 3D reconstruction. Individualized dose optimization techniques were used for this CT. COMPARISON: None. FINDINGS: There are multiple segmental pulmonary emboli some of which are occlusive. Thrombus within the distal left main pulmonary artery on image 130 of series 2 but no saddle embolus. Right ventricle is slightly larger than the left with some reflux of contrast into the IVC. There is atherosclerotic calcification of the aortic arch with tortuosity. There is no demonstrated aortic dissection. There is cardiomegaly. There are calcifications of the coronary arteries. Normal mediastinum. Normal hilar regions. Multifocal peripheral dominant, groundglass and consolidative infiltrates with features commonly reported with COVID pneumonia. . Normal pleura. Normal chest wall structures. No destructive bony process. Well-defined low-density (Hounsfield units 5-6) lesion of the left adrenal gland measures 2.7 x 3.4 cm). ACR White Paper guidelines (Marisol et al. JACR 2017; 14(8):4328-8395) suggest no follow-up is necessary. CT/CTA Chest W/WO Contrast IMPRESSION: 1. Bilateral pulmonary embolism with some extension into the distal left main pulmonary artery. Suspect early right heart strain. 2. Multifocal infiltrates with features commonly reported with COVID pneumonia. N.B. : The above Results were Read Back by Chintan Fernandez MD (Brooks) to Colin Mccarthy MD, and understanding confirmed on 10/11/2021 14:39:01 (ET). Electronically Signed: Chintan Fernandez MD (Brooks) at 14:40 EST , Service support ,
[2021-10-11 14:17] LABS: Lactic Acid 3.8 mmol/L (0.4-1.9)
--- NOTE | 2021-10-11 14:39 | HP.PCM.HOS_ITS ---
HPI - General General Date of Admission: 10/11/21 Date of Service: 10/11/21 Chief Complaint: Cough, dyspnea x 2 weeks. HPI Narrative The patient is an 86 y/o F w/ PMHx: HTN, Hypothyroidism who presents to the [facility] ED on 10/11/21 with history of ongoing fatigue, malaise, dyspnea with cough and rhinorrhea starting over the last 2 weeks as well as a very throbbing constant frontal headache, progressively worsening prompting eventual ED presentation. Patient specifically denies any fevers, chills, body aches, nausea, emesis, diarrhea. Upon initial arrival in the ED patient was immediately noted to be 66% on room air. Patient denied any recent pleuritic chest pain of note. Unvaccinated COVID status. Work-up in the ED included initial assessment T 98, heart rate 101, BP 103/90, respiratory rate 30, 66% on room air eventually transitioning to a nonrebreather initially 12 L increasing up to 15 L most recently 93% on 15 L, CBC with WBC 10.2, hemoglobin 15.1, platelet 193 with left shift, D-dimer 10.54, CMP with potassium 3.1, BUN/creatinine 21/1.01, glucose 171, lactic acid 3.8, T bili 1.20, BNP 306, BNP 306, pending procalcitonin, CRP, CPK, Ferritin, LDH, high-sensitivity initial troponin 24, chest x-ray with multilobar multifocal concern opacities predominantly in the peripheral distribution consistent with Covid pneumonia, CTPA with bilateral pulmonary emboli with some extension of the distal left main pulmonary artery with suspected early heart strain, multifocal infiltrates consistent with Covid pneumonia, SARS rapid Covid antigen negative however patient has had symptoms for 2 weeks, Covid PCR pending. In the ED patient administered decadron, potassium 40 mEq, heparin drip initiated. [facility] Medical History (Updated 10/11/21 @ 15:[address] June Roche MD) Hypertension Hypothyroidism Overweight (BMI 25.0-29.9) Home Medications atenolol [Tenormin] 12.5 mg PO DAILY 05/17/17 [History Last Taken 10/20/19] levothyroxine 75 mcg PO DAILY 05/17/17 [History Last Taken 09/29/19 0730] Allergy/AdvReac Type Severity Reaction Status Date / Time No Known Allergies Allergy Verified 10/11/21 12:14 Family History (Updated 10/11/21 @ 15:[address] June Roche MD) Mother Cancer other (Patient denies any marked paternal family history including HD, DM, CA.) Surgical History (Updated 10/11/21 @ 15:[address] June Roche MD) S/P hysterectomy Social History (Updated 10/11/21 @ 15:[address] June Roche MD) household members: other details: Notes her son lives with her. Smoking Status: Never smoker alcohol intake: never substance use type: does not use ROS ROS Narrative Admission Review of Systems: CONSTITUTIONAL: No weight loss, fever, chills, + weakness or fatigue. HEENT: + Headache, rhinorrhea. Eyes: No visual loss, blurred vision, double vision or yellow sclerae. Ears, Nose, Throat: No hearing loss, sneezing. SKIN: No rash or itching, lesions, wounds. CARDIOVASCULAR: No chest pain, chest pressure or chest discomfort, palpitations, edema, orthopnea, syncopal events. RESPIRATORY: + shortness of breath, cough, No marked sputum, wheezing, hemoptysis. GASTROINTESTINAL: + anorexia, No nausea, vomiting, diarrhea, abdominal pain, melena, BRBPR. GENITOURINARY: No dysuria, frequency, urgency or retention. NEUROLOGICAL: + headache, No dizziness, syncope, paralysis, ataxia, numbness or tingling in the extremities, focal weakness, change in bowel or bladder control, seizure. MUSCULOSKELETAL: + muscle, back pain, joint pain or stiffness. HEMATOLOGIC: No anemia, bleeding or bruising. LYMPHATICS: No enlarged nodes. No history of splenectomy. PSYCHIATRIC: No history of depression or anxiety. ENDOCRINOLOGIC: No reports of sweating, cold or heat intolerance. No polyuria or polydipsia. ALLERGIES: No history of asthma, hives, eczema or rhinitis. Vital Signs Vital Signs Vital Signs: 10/11/21 12:07 10/11/21 12:45 10/11/21 12:46 Temperature 98 F 98 F Temperature Source Temporal Temporal Pulse Rate 101 H 109 H 109 H Respiratory Rate 30 H 32 H 32 H Respiratory Effort Short of Breath Labored Blood Pressure 103/90 H 151/81 H Blood Pressure Mean 94 104 Pulse Ox 66 95 95 Oxygen Delivery Method Room Air Nasal Cannula Nasal Cannula Oxygen Flow Rate (L/min) 12 12 10/11/21 13:14 10/11/21 13:20 10/11/21 13:36 Temperature 98 F Temperature Source Temporal Pulse Rate 139 H 139 H 86 Respiratory Rate 32 H 28 H Respiratory Effort Blood Pressure 151/81 H 144/84 H Blood Pressure Mean 104 104 Pulse Ox 91 93 Oxygen Delivery Method Nasal Cannula Nasal Cannula Nasal Cannula Oxygen Flow Rate (L/min) 15 13 15 Weight Weight: 150 lb Body Mass Index (BMI) 26.5 Physical Exam Narrative Physical Examination: General: Awake, alert, oriented x 3 and cooperative, seated upright in the ED bed, fatigued and ill-appearing, increased respiratory rate, currently on 15L. Skin: Normal color, normal turgor, no icterus, no cyanosis. HEENT: AT/NC, EOMI, PERRLA, dry MM, no carotid bruits or JVD noted. Lungs: Diffusely diminished, greater bases, increased respiratory rate, accessory muscle usage, evidence distress, no rales, ronchi or wheezing. Heart: Currently regular rate with regular rhythm; no gallop, rub audible. Abdomen: Soft, overweight, NTTP, ND, distant mildly hyperactive bowel sounds, no HSM. Extremities: No cyanosis, clubbing, or edema. Neurological: Patient awake, alert, oriented as noted, cognitive function intact; pupils equally reactive to light and accommodation, cranial nerves II- XII grossly normal, moving all 4 extremities, no focal deficits, strength severely global decrease secondary to acute presentation. Psychiatric: Affect appears fatigued, ill-appearing, respiratory compromise evident, no acute evidence of depressive or anxiety feelings. Results Lab / Micro Data Result Diagrams: 10/11/21 13:36 10/11/21 13:36 Labs: Laboratory Results - last 24 hr 10/11/21 13:36: D-Dimer Quant (PE/DVT) 10.54 H* 10/11/21 13:36: B-Natriuretic Peptide 306.0 H 10/11/21 13:36: WBC 10.2, RBC 4.89, Hgb 15.1 H, Hct 43.1, MCV 88.1, MCH 30.9, MCHC 35.0, RDW Std Deviation 40.8, RDW Coeff of Marguerite 12.6, Plt Count 193, MPV 10.5, Immature Gran % (Auto) 0.500, Neut % (Auto) 85.3 H, Lymph % (Auto) 10.1 L, [place] % (Auto) 4.0, Eos % (Auto) 0.0, Baso % (Auto) 0.1, Absolute Neuts (auto) 8.7 H, Absolute Lymphs (auto) 1.03, Nucleated RBC % 0 10/11/21 13:36: Sodium 136, Potassium 3.1 L, Chloride 99, Carbon Dioxide 27.0, Anion Gap 10, BUN 21 H, Creatinine 1.01, Estim Creat Clear Calc 33.69, Est GFR (MDRD) Af Amer 67, Est GFR (MDRD) Non-Af 55 L, BUN/Creatinine Ratio 20.8 H, Glucose 171 H, Calcium 8.7, Total Bilirubin 1.20 H, AST 31, ALT 25, Alkaline Phosphatase 58, Troponin I High Sens 24, Total Protein 7.4, Albumin 2.6 L, Globulin 4.8 H, Albumin/Globulin Ratio 0.5 L 10/11/21 13:36: Lactic Acid 3.8 H* Micro: Microbiology 10/11/21 13:30 Nasal Secretion SARS-CoV-2 Antigen (Rapid) - Final Radiology Impression Chest X-Ray 10/11/21 13:40 IMPRESSION: Multilobar multifocal confluent opacities predominantly in a peripheral distribution. Findings likely related to atelectasis and infectious/inflammatory etiology and can be seen with multifocal atypical pneumonia. Correlation with COVID status recommended. Electronically Signed: Mp Ng MD at 14:21 EST Tel , Service support , Assessment & Plan Assessment/Plan (1) Acute hypoxemic respiratory failure: (2) COVID-19: (3) Bilateral pulmonary embolism: PLAN: The patient is an 86 y/o F w/ PMHx: HTN, Hypothyroidism who presents to the [facility] ED on 10/11/21 with history of ongoing fatigue, malaise, dyspnea with cough and rhinorrhea starting over the last 2 weeks as well as a very throbbing constant frontal headache, progressively worsening prompting eventual ED presentation. #1. Acute Hypoxic Respiratory Failure secondary to Acute Bilateral Pneumonia secondary to Suspected Acute Viral Syndrome, COVID-19: Will admit to the PCU, maintain on COVID precautions pending COVID PCR results, will maintain on oxygen with wean as tolerated to room air, PRN albuterol, HOB, IS parameters w/ pending sputum cultures, respiratory viral panel and urine antigens, pending procalcitonin, CRP, CPK, Ferritin, LDH, will cycle cardiac enzymes given strain potential, continue supportive care including q 2 hour turning including prone given no prone bed availability and judicious hydration, closely monitor for worsening status for ARDS and multiorgan failure, will initiate and continue IV decadron x 10 doses, given presentation timeline not remdesivir candidate. Will consult infectious disease for consideration barcitinib given likely need for transition to airvo or BIPAP. #2. Acute BL Pulmonary Embolism with suspected Cardiac strain secondary to #1 (BL PNA COVID): EKG without acute findings, trop normal x 1, will maintain on cardiac telemetry, once quarantine complete will need to obtain ECHO, BNP. Will continue therapeutic heparin drip regimen with pending AM insurance oral regimen investigation. #3. Lactic acidosis: Lactic acid 3.8, likely secondary to acute presentation #1 secondary to hypoxemia, will continue treatment as noted and trend per facility protocol. #4. Hypokalemia: Admission K+ 3.1, magnesium level requested, supplementation given, repeat level in AM. #5. Hyperglycemia: Admission glucose 171, possibly stress response, will obtain hemoglobin A1c to be cautious. #6. Hypertension: Notes she discontinued her atenolol secondary to lightheadedness symptoms, will hold re-addition especially given #1 presentation, in interim PRN hydralazine. #7. Hypothyroidism: Continue home synthroid regimen, TSH pending. #8. DVT prophylaxis: SCDs, heparin drip as noted above. #9. CODE status: Patient does not have healthcare prep turning or living will in place. Given acute presentation #1 with acute hypoxic respiratory failure in the setting of bilateral pneumonia suspected secondary to acute COVID-19 and unvaccinated status, discussed CODE status at length including difference between FULL code, DNR-CCA and DNR-CC status. Following discussions about the differences in these status, requested DNR-CCA with allowance of intubation if necessary. Amenable to airvo and BIPAP. Advanced Care Planning Face to Face Time: 16 minutes. Charges/Coding Visit Charges Inpatient E&M: 99048 Init Hosp L3 Procedures Hospitalists Procedures: 06100 Advncd Care Plan 30 Min
[2021-10-11 15:30] LABS: International Normalized Ratio 1.2
[2021-10-11] MEDS: dexAMETHasone 4 MG Tablet 6 MG PO (15:30)
[2021-10-11] MEDS: Heparin Injection (Vial) 5,000 UNIT/ML VIAL 4500 UNIT IV (15:30)
[2021-10-11] MEDS: Potassium Chloride Oral Tablet 20 MEQ 40 MEQ PO (15:30)
[2021-10-11 15:31] LABS: Partial Thromboplast Time 30.3 Seconds (24.1-36.2)
[2021-10-11] MEDS: HEPARIN/D5w 25,000 UNITS 25,000 UNITS/250 ML IV.SOLN. 10 UNITS IV (15:31)
[2021-10-11 15:43] LABS: CPK Total, Creatine Kinase 66 U/L (26-192); Ferritin 809 ng/mL (8-252); LDH 381 U/L (84-246); Magnesium 2.1 mg/dL (1.6-2.6)
[2021-10-11 16:10] LABS: Fibrinogen 667 mg/dl (203-444)
[2021-10-11] MEDS: 0.9% Normal Saline 1,000 ML 100 ML IV (17:24)
[2021-10-11 17:27] LABS: Procalcitonin 0.15 ng/mL (0.00-0.09)
[2021-10-11 17:40] LABS: Reflex Lactate? Y
[2021-10-11 18:11] LABS: Troponin-I HS 26 pg/mL (3.0-54.0)
[2021-10-11 18:50] LABS: Lactic Acid 2.7 mmol/L (0.4-1.9)
[2021-10-11 20:04] LABS: Troponin-I HS 23 pg/mL (3.0-54.0)
[2021-10-11 21:43] LABS: Partial Thromboplast Time 80.5 Seconds (24.1-36.2)
[2021-10-11] MEDS: Insulin Lispro 100 UNIT/ML INSULN.PEN SC (21:44)
[2021-10-11 22:40] LABS: Bedside Glucose 185 mg/dL (70-110)
[2021-10-12] VITALS (20 sets, daily range): BP systolic 115–173; BP diastolic 56–90; PULSE 62–85; RESP 18–32; TEMP 36.4–36.8; O2SAT 89–96
[2021-10-12 04:24] LABS: Absolute Lymphocyte Count 1.12 X10^3/uL (0.83-4.51); Absolute Neutrophil Count 6.1 X10^3/uL (2.0-7.7); Basophil# 0.01 X10^3/uL; Basophil% 0.1 % (0-1); Hematocrit 36.5 % (37-47); Hemoglobin 12.4 g/dL (12.0-15.0); Lymphocyte # 1.12 X10^3/ul (0.83-4.51); Lymphocyte % 14.8 % (19-41); Mean Corpuscular Hgb 30.6 pg (27.0-32.0); Mean Corpuscular Volume 90.1 fL (81-99); Mean Platelet Vol. 10.6 fl (6.2-12.0); Monocyte# 0.34 X10^3/uL; Monocyte% 4.5 % (0-10); NRBC Flagged by Analyzer 0 % (0-5); Neutrophil # 6.06 X10^3/uL (2.7-7.7); Neutrophil % 80.2 % (47-70); Platelet Count 193 K/mm3 (150-450); RBC Distribution Width CV 12.6 % (11.6-14.6); Red Blood Count 4.05 M/mm3 (4.2-5.4); White Blood Count 7.6 K/mm3 (4.4-11.0)
[2021-10-12 04:36] LABS: Partial Thromboplast Time 57.7 Seconds (24.1-36.2)
[2021-10-12 04:49] LABS: ALB/GLOB Ratio 0.5 RATIO (0.9-2.4); AST(SGOT) 26 U/L (15-37); Alanine Aminotransfer ALT/SGPT 21 U/L (13-56); Albumin, Serum 2.1 g/dL (3.2-5.0); Alkaline Phosphatase 49 U/L (45-117); Anion Gap 5 (5-15); BUN 19 mg/dL (7-18); BUN/Creat Ratio 28.1 RATIO (10-20); Calcium,Total 7.9 mg/dL (8.5-10.1); Chloride 103 mmol/L (98-107); Creatinine, Serum 0.68 mg/dL (0.55-1.02); EST Glomerular Filtration Rate 88 mL/min (>60); Est Glom Filt Rate - Afr Amer 106 mL/min (>60); Estimated Creatinine Clearance 32.53 ml/min; Globulin 4.2 g/dL (2.2-4.2); Glucose 164 mg/dL (74-106); Potassium 3.5 mmol/L (3.5-5.1); Protein, Total 6.3 g/dL (6.4-8.2); Sodium Level 138 mmol/L (136-145)
--- NOTE | 2021-10-12 06:33 | PCM.PN.HOSP ---
Subjective Subjective Patient overnight with no acute distress per self and per nursing report. She states that she is coughing less and feels less short of breath but continues to remain on at least 10 L high flow and has continued increased respiratory rate, worse when she is exerting herself. Discussed again that patient status can certainly worsen and she understands and is continued to perform requested incentive spirometry and movement. Patient denies fevers, chills, nausea, emesis, abdominal pain, chest pain. Objective Data Objective Data Vital Signs: Vital Signs Temp Pulse Resp BP Pulse Ox 98.3 F 65 28 H 116/56 L 92 10/12/21 03:00 10/12/21 03:00 10/12/21 03:00 10/12/21 03:00 10/12/21 03:00 Oxygen Flow Rate (L/min) 10 Oxygen Delivery Method High Flow Weight: 151 lb 14.376 oz Body Mass Index (BMI) 26.7 Intake & Output: Intake and Output for Last 24 Hours 10/10/21 10/11/21 10/12/21 23:59 23:59 23:59 Intake Total 62.33 / 62.33 1000 / 1000 Balance 62.33 / 62.33 1000 / 1000 Lab / Micro Data Result Diagrams: 10/12/21 03:55 10/12/21 03:55 Labs: Laboratory Results - last 24 hr 10/11/21 13:36: D-Dimer Quant (PE/DVT) 10.54 H* 10/11/21 13:36: B-Natriuretic Peptide 306.0 H 10/11/21 13:36: WBC 10.2, RBC 4.89, Hgb 15.1 H, Hct 43.1, MCV 88.1, MCH 30.9, MCHC 35.0, RDW Std Deviation 40.8, RDW Coeff of Marguerite 12.6, Plt Count 193, MPV 10.5, Immature Gran % (Auto) 0.500, Neut % (Auto) 85.3 H, Lymph % (Auto) 10.1 L, Phillips % (Auto) 4.0, Eos % (Auto) 0.0, Baso % (Auto) 0.1, Absolute Neuts (auto) 8.7 H, Absolute Lymphs (auto) 1.03, Nucleated RBC % 0 10/11/21 13:36: Sodium 136, Potassium 3.1 L, Chloride 99, Carbon Dioxide 27.0, Anion Gap 10, BUN 21 H, Creatinine 1.01, Estim Creat Clear Calc 33.69, Est GFR (MDRD) Af Amer 67, Est GFR (MDRD) Non-Af 55 L, BUN/Creatinine Ratio 20.8 H, Glucose 171 H, Calcium 8.7, Total Bilirubin 1.20 H, AST 31, ALT 25, Alkaline Phosphatase 58, Troponin I High Sens 24, Total Protein 7.4, Albumin 2.6 L, Globulin 4.8 H, Albumin/Globulin Ratio 0.5 L 10/11/21 13:36: Lactic Acid 3.8 H* 10/11/21 13:36: Hemoglobin A1c 7.0 H 10/11/21 14:41: COVID-19 (YONATAN) Detected 10/11/21 15:15: PT 15.0 H, INR 1.2, APTT 30.3, Fibrinogen 667 H 10/11/21 15:15: Magnesium 2.1, Ferritin 809 H, Lactate Dehydrogenase 381 H, Total Creatine Kinase 66, C-React Prot Ext Range 156.00 H 10/11/21 15:15: Procalcitonin 0.15 H 10/11/21 17:10: Lactic Acid 2.7 H* 10/11/21 17:41: Troponin I High Sens 26 10/11/21 19:27: Troponin I High Sens 23 10/11/21 21:21: APTT 80.5 H 10/11/21 21:42: POC Glucose 185 H 10/12/21 03:55: WBC 7.6, RBC 4.05 L, Hgb 12.4, Hct 36.5 L, MCV 90.1, MCH 30.6, MCHC 34.0, RDW Std Deviation 42.0, RDW Coeff of Marguerite 12.6, Plt Count 193, MPV 10.6, Immature Gran % (Auto) 0.400, Neut % (Auto) 80.2 H, Lymph % (Auto) 14.8 L, Phillips % (Auto) 4.5, Eos % (Auto) 0.0, Baso % (Auto) 0.1, Absolute Neuts (auto) 6.1, Absolute Lymphs (auto) 1.12, Nucleated RBC % 0 10/12/21 03:55: Sodium 138, Potassium 3.5, Chloride 103, Carbon Dioxide 30.0, Anion Gap 5, BUN 19 H, Creatinine 0.68, Estim Creat Clear Calc 32.53, Est GFR (MDRD) Af Amer 106, Est GFR (MDRD) Non-Af 88, BUN/Creatinine Ratio 28.1 H, Glucose 164 H, Calcium 7.9 L, Total Bilirubin 0.60, AST 26, ALT 21, Alkaline Phosphatase 49, Total Protein 6.3 L, Albumin 2.1 L, Globulin 4.2, Albumin/Globulin Ratio 0.5 L 10/12/21 03:55: APTT 57.7 H Micro: Microbiology 10/12/21 01:45 Urine, Clean Catch Legionella Antigen - Final 10/12/21 01:45 Urine, Clean Catch Streptococcus pneumoniae Antigen (M - Final 10/11/21 20:08 Mucosa - Nose Respiratory Panel (PCR) - Final 10/11/21 13:30 Nasal Secretion SARS-CoV-2 Antigen (Rapid) - Final Radiography Diagnostic Testing: Radiology Impression Chest X-Ray 10/11/21 13:40 IMPRESSION: Multilobar multifocal confluent opacities predominantly in a peripheral distribution. Findings likely related to atelectasis and infectious/inflammatory etiology and can be seen with multifocal atypical pneumonia. Correlation with COVID status recommended. Electronically Signed: Mp Ng MD at 14:21 EST Tel , Service support , Chest CTA 10/11/21 14:15 IMPRESSION: 1. Bilateral pulmonary embolism with some extension into the distal left main pulmonary artery. Suspect early right heart strain. 2. Multifocal infiltrates with features commonly reported with COVID pneumonia. N.B. : The above Results were Read Back by Chintan Fernandez MD (Brooks) to Colin Mccarthy MD, and understanding confirmed on 10/11/2021 14:39:01 (ET). Electronically Signed: Chintan Fernandez MD (Brooks) at 14:40 EST , Service support , ADDENDUM: 10/11/21 1447 IMPRESSION: 1. Bilateral pulmonary embolism with some extension into the distal left main pulmonary artery. Suspect early right heart strain. 2. Multifocal infiltrates with features commonly reported with COVID pneumonia. N.B. : The above Results were Read Back by Chintan Fernandez MD (Brooks) to Colin Mccarthy MD, and understanding confirmed on 10/11/2021 14:39:01 (ET). Electronically Signed: Chintan Fernandez MD (Brooks) at 14:40 EST , Service support , Physical Exam Narrative Physical Examination: General: Awake, alert, oriented x 3 and cooperative, seated upright in the PCU bed, less fatigued than prior, still increased work of breathing and some accessory muscle usage, continued high flow. Skin: Normal color, normal turgor, no icterus, no cyanosis. HEENT: AT/NC, EOMI, PERRLA, mildly improved less dry MM. Lungs: Diffusely diminished, greater bases, increased respiratory rate, accessory muscle usage, no rales, ronchi or wheezing. Heart: Regular rate with regular rhythm; no gallop, rub audible. Abdomen: Soft, overweight, NTTP, ND, normalized bowel sounds. Extremities: No cyanosis, clubbing, or edema. Neurological: Patient awake, alert, oriented as noted, cognitive function intact; pupils equally reactive to light and accommodation, cranial nerves II-XII grossly normal, moving all 4 extremities, no focal deficits, strength severely global decrease secondary to acute presentation. Psychiatric: Affect appears fatigued, ill-appearing, respiratory distress less than day prior, no acute evidence of depressive or anxiety feelings. Assessment & Plan Assessment/Plan (1) Acute hypoxemic respiratory failure: (2) COVID-19: (3) Bilateral pulmonary embolism: PLAN: The patient is an 86 y/o F w/ PMHx: HTN, Hypothyroidism who presents to the [facility] ED on 10/11/21 with history of ongoing fatigue, malaise, dyspnea with cough and rhinorrhea starting over the last 2 weeks as well as a very throbbing constant frontal headache, progressively worsening prompting eventual ED presentation. #1. Acute Hypoxic Respiratory Failure secondary to Acute Bilateral Pneumonia secondary to Acute Viral Syndrome, COVID-19: Patient admitted to the PCU, maintained on on COVID precautions with eventual positive COVID PCR results, maintained on oxygen with wean as tolerated to room air but do suspect patient will likely eventually need air Vo and/or BiPAP, PRN albuterol, HOB, IS parameters w/ pending sputum cultures, respiratory viral panel negative, urine antigens, ferritin 809, LDH 381, TCK 64, CRP 156, BNP 306, procalcitonin 0.15, cycled cardiac enzymes given strain potential which remained unremarkable, continue supportive care, closely monitor for worsening status for ARDS and multiorgan failure, initiated and continued on IV decadron x 10 doses, given presentation timeline not remdesivir candidate, consult requested on admission for consideration baricitinib. Pulmonary medicine also consulted and evaluating patient. Discussed with patient at length need for aggressive incentive prominently, pulmonary toileting and frequent every 2 positional changes including proning #2. Acute BL Pulmonary Embolism with suspected Cardiac strain secondary to #1 (BL PNA COVID): EKG without acute findings, cardiac serial enzymes unremarkable, maintain on telemetry as noted, once quarantine complete will need to obtain ECHO, BNP mildly elevated 306. Will continue therapeutic heparin drip regimen with pending insurance oral regimen investigation once appropriate. #3. Lactic acidosis: Lactic acid 3.8, likely secondary to acute presentation #1 secondary to hypoxemia, repeat 2.7, improved. #4. Hypokalemia: Admission K+ 3.1, magnesium 2.1, supplementation given, repeat level 3.5, continue to trend. #5. Hyperglycemia with new onset diabetes mellitus type II: Admission glucose 171, hemoglobin A1c obtained and noted to be 7.0%, transition to ADA diet with Accu-Cheks with insulin sliding scale. Monitor for continued hyperglycemia especially in the setting of steroid usage and adjust sliding scale as needed versus potential addition of low-dose twice daily long-acting agent if necessary pending trending. #6. Hypertension: Notes she discontinued her atenolol secondary to lightheadedness symptoms, will hold re-addition especially given #1 presentation, in interim PRN hydralazine. #7. Hypothyroidism: Continue home synthroid regimen. #8. DVT prophylaxis: SCDs, heparin drip as noted above. #9. CODE status: Patient does not have healthcare prep turning or living will in place. DNR-CCA with allowance of intubation. Charges/Coding Visit Charges Inpatient E&M: 45903 Subs Hosp L2
[2021-10-12] MEDS: Insulin Lispro 100 UNIT/ML INSULN.PEN SC ×4 (06:52→22:16)
[2021-10-12 07:05] LABS: Bedside Glucose 163 mg/dL (70-110)
[2021-10-12] MEDS: Famotidine 20 MG Tablet PO (08:31)
[2021-10-12] MEDS: Levothyroxine 75 MCG Tablet PO (08:31)
[2021-10-12] MEDS: 0.9% Saline Lock 10 ML Syringe IV (08:32)
[2021-10-12] MEDS: dexAMETHasone 10 MG/ML Vial 6 MG IV (08:32)
[2021-10-12 10:04] LABS: Partial Thromboplast Time 47.9 Seconds (24.1-36.2)
[2021-10-12] MEDS: Heparin Injection (Vial) 5,000 UNIT/ML VIAL IV (10:16)
--- NOTE | 2021-10-12 10:33 | EX.PCM.CONCC ---
Assessment & Plan Assessment/Plan (1) Acute hypoxemic respiratory failure: (2) COVID-19: (3) Bilateral pulmonary embolism: PLAN: RECOMMENDATIONS: 1. Agree with Decadron therapy 2. Consider infectious disease consultation for baricitinib 3. Continue full anticoagulation 4. Wean oxygen as tolerated 5. Monitor for hyperglycemia 6. Encourage Acapella, incentive spirometer and prone positioning as tolerated IMPRESSIONS: 1. Acute hypoxic respiratory failure secondary to COVID-19 with bilateral PE Patient with some improvement from admission. Clinical suspicion for improvement secondary to pulmonary embolism more than COVID-19. Exact onset of symptoms is unclear. Patient is potentially 14 days from symptom onset meaning Remdesivir would be of little clinical utility. Baricitinib would be a consideration, but would require an infectious disease evaluation. Patient does not appear to have contraindications at this time. Patient does not have a lot of underlying lung pathology. Continue with Decadron therapy, but will have to monitor for complications such as hyperglycemia. Possibly transition to a 10 a inhibitor once patient's clinical course is more stable to complete 6 months. Encourage Acapella, incentive spirometer and prone positioning as tolerated. 2. Hypothyroidism/advanced age/hypertension/unvaccinated status/poor primary care follow-up Complicates care, management, recovery and prognosis. Okay to continue with baseline medications. Clinical suspicion patient may have other comorbidities that have not been recognized secondary to failure to present to PCP. Patient does have an elevated bicarbonate suggestive of CO2 retention and hemoglobin A1c is elevated indicating probable diabetes. Could consider an echocardiogram for congestive heart failure, but elevated BNP may be secondary to PE HPI Consult Data Date of Consult: 10/12/21 HPI Narrative HPI Narrative: Magda SCHMITZ is an 86 F, with past medical history listed below, who presents to [facility] 10/11/2021 secondary to rhinorrhea, cough and progressive fatigue. Patient does not have any known cardiac or pulmonary disorders and does not use any inhalers or oxygen at baseline. Family had reported some subjective fever, but this was not verified. Patient also been taken decreased p.o. intake for several days per the family. Patient is unvaccinated against COVID-19. Patient readily admits that she does not go to the doctor frequently because she is healthy. Patient has reported onset between 7 and 14 days ago. In the ER, patient was afebrile, but tachycardic and tachypneic. Patient was noted to be 66% on room air and breathing 30 breaths/min on presentation. The patient was placed on up to 15 L nasal cannula to maintain saturations. Patient has been tachycardic and hypertensive while in the ER. Laboratory work-up showed a white blood cell count of 10.2, hemoglobin of 15.1 and a D-dimer of 10.5. BNP was elevated at 306 and chemistry showed a potassium of 3.1, creatinine of 1 and relatively normal liver function studies. Lactate was elevated at 3.8. Chest x-ray showed bilateral patchy infiltrates and a CTA of the chest confirmed bilateral pulmonary emboli with early right heart strain and groundglass opacities. The patient was admitted to the floor for further evaluation on a heparin drip. Patient reports she feels subjectively improved since presentation. Patient is not reporting any bleeding complications such as hemoptysis, melena or hematochezia. Patient states she is never been seen by sld teacher or cobbler sole. Patient has never had a PFT nor required oxygen or an inhaler previously. 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 Patient does not report any previous history of pulmonary emboli. Review of systems otherwise negative from a constitutional, HEENT, respiratory, cardiovascular, GI, genitourinary, musculoskeletal, skin, neurologic, psychiatric and hematologic system unless stated above. [facility] Medical History Hypertension Hypothyroidism Overweight (BMI 25.0-29.9) Home Medications atenolol [Tenormin] 12.5 mg PO DAILY 05/17/17 [History Last Taken 10/20/19] levothyroxine 75 mcg PO DAILY 05/17/17 [History Last Taken 09/29/19 0730] Allergy/AdvReac Type Severity Reaction Status Date / Time No Known Allergies Allergy Verified 10/11/21 12:14 Family History Mother Cancer Family History other Surgical History S/P hysterectomy Social History household members: other details: Notes her son lives with her. Smoking Status: Never smoker alcohol intake: never substance use type: does not use ROS ROS Narrative See HPI Physical Exam Const alert and oriented x3 General Appearance: cooperative, in distress Positive for mild and ill appearing HEENT normocephalic, head/scalp atraumatic and moist oral mucous membranes Eyes PERRL, EOMs intact bilaterally and conjunctivae normal Neck full ROM Chest inspection of chest normal Chest Narrative: Symmetric expansion. No crepitus. Resp Auscultation: diminished lung sounds; Negative for rales, rhonchi or wheezes Cardio regular rate, regular rhythm, S1 normal heart sound, S2 normal heart sound, no murmurs, no rub and no gallops GI normal to inspection, nondistended, normoactive bowel sounds Extremity no clubbing, cyanosis or edema Skin no rashes or lesions noted Neuro oriented x3, CN's II-XII intact bilaterally and moves all extremities Psych cooperative and affect normal Appearance: well kempt Lab / Micro Data Result Diagrams: 10/12/21 03:55 10/12/21 03:55 Labs: Laboratory Results - last 24 hr 10/11/21 13:36: D-Dimer Quant (PE/DVT) 10.54 H* 10/11/21 13:36: B-Natriuretic Peptide 306.0 H 10/11/21 13:36: WBC 10.2, RBC 4.89, Hgb 15.1 H, Hct 43.1, MCV 88.1, MCH 30.9, MCHC 35.0, RDW Std Deviation 40.8, RDW Coeff of Marguerite 12.6, Plt Count 193, MPV 10.5, Immature Gran % (Auto) 0.500, Neut % (Auto) 85.3 H, Lymph % (Auto) 10.1 L, [place] % (Auto) 4.0, Eos % (Auto) 0.0, Baso % (Auto) 0.1, Absolute Neuts (auto) 8.7 H, Absolute Lymphs (auto) 1.03, Nucleated RBC % 0 10/11/21 13:36: Sodium 136, Potassium 3.1 L, Chloride 99, Carbon Dioxide 27.0, Anion Gap 10, BUN 21 H, Creatinine 1.01, Estim Creat Clear Calc 33.69, Est GFR (MDRD) Af Amer 67, Est GFR (MDRD) Non-Af 55 L, BUN/Creatinine Ratio 20.8 H, Glucose 171 H, Calcium 8.7, Total Bilirubin 1.20 H, AST 31, ALT 25, Alkaline Phosphatase 58, Troponin I High Sens 24, Total Protein 7.4, Albumin 2.6 L, Globulin 4.8 H, Albumin/Globulin Ratio 0.5 L 10/11/21 13:36: Lactic Acid 3.8 H* 10/11/21 13:36: Hemoglobin A1c 7.0 H 10/11/21 14:41: COVID-19 (YONATAN) Detected 10/11/21 15:15: PT 15.0 H, INR 1.2, APTT 30.3, Fibrinogen 667 H 10/11/21 15:15: Magnesium 2.1, Ferritin 809 H, Lactate Dehydrogenase 381 H, Total Creatine Kinase 66, C-React Prot Ext Range 156.00 H 10/11/21 15:15: Procalcitonin 0.15 H 10/11/21 17:10: Lactic Acid 2.7 H* 10/11/21 17:41: Troponin I High Sens 26 10/11/21 19:27: Troponin I High Sens 23 10/11/21 21:21: APTT 80.5 H 10/11/21 21:42: POC Glucose 185 H 10/12/21 03:55: WBC 7.6, RBC 4.05 L, Hgb 12.4, Hct 36.5 L, MCV 90.1, MCH 30.6, MCHC 34.0, RDW Std Deviation 42.0, RDW Coeff of Marguerite 12.6, Plt Count 193, MPV 10.6, Immature Gran % (Auto) 0.400, Neut % (Auto) 80.2 H, Lymph % (Auto) 14.8 L, Sear[place] % (Auto) 4.5, Eos % (Auto) 0.0, Baso % (Auto) 0.1, Absolute Neuts (auto) 6.1, Absolute Lymphs (auto) 1.12, Nucleated RBC % 0 10/12/21 03:55: Sodium 138, Potassium 3.5, Chloride 103, Carbon Dioxide 30.0, Anion Gap 5, BUN 19 H, Creatinine 0.68, Estim Creat Clear Calc 32.53, Est GFR (MDRD) Af Amer 106, Est GFR (MDRD) Non-Af 88, BUN/Creatinine Ratio 28.1 H, Glucose 164 H, Calcium 7.9 L, Total Bilirubin 0.60, AST 26, ALT 21, Alkaline Phosphatase 49, Total Protein 6.3 L, Albumin 2.1 L, Globulin 4.2, Albumin/Globulin Ratio 0.5 L 10/12/21 03:55: APTT 57.7 H 10/12/21 06:49: POC Glucose 163 H 10/12/21 09:40: APTT 47.9 H Micro: Microbiology 10/12/21 01:45 Urine, Clean Catch Legionella Antigen - Final 10/12/21 01:45 Urine, Clean Catch Streptococcus pneumoniae Antigen (M - Final 10/11/21 20:08 Mucosa - Nose Respiratory Panel (PCR) - Final 10/11/21 13:30 Nasal Secretion SARS-CoV-2 Antigen (Rapid) - Final Radiology Impression Chest X-Ray 10/11/21 13:40 IMPRESSION: Multilobar multifocal confluent opacities predominantly in a peripheral distribution. Findings likely related to atelectasis and infectious/inflammatory etiology and can be seen with multifocal atypical pneumonia. Correlation with COVID status recommended. Electronically Signed: Mp Ng MD at 14:21 EST Tel , Service support , Chest CTA 10/11/21 14:15 IMPRESSION: 1. Bilateral pulmonary embolism with some extension into the distal left main pulmonary artery. Suspect early right heart strain. 2. Multifocal infiltrates with features commonly reported with COVID pneumonia. N.B. : The above Results were Read Back by Chintan Fernandez MD (Brooks) to Colin Mccarthy MD, and understanding confirmed on 10/11/2021 14:39:01 (ET). Electronically Signed: Chintan Fernandez MD (Brooks) at 14:40 EST , Service support , ADDENDUM: 10/11/21 1447 IMPRESSION: 1. Bilateral pulmonary embolism with some extension into the distal left main pulmonary artery. Suspect early right heart strain. 2. Multifocal infiltrates with features commonly reported with COVID pneumonia. N.B. : The above Results were Read Back by Chintan Fernandez MD (Brooks) to Colin Mccarthy MD, and understanding confirmed on 10/11/2021 14:39:01 (ET). Electronically Signed: Chintan Fernandez MD (Brooks) at 14:40 EST , Service support , Charges/Coding Visit Charges Inpatient E&M: 62145 Init Hosp L3
--- NOTE | 2021-10-12 11:25 | CASEMGMT ---
RN DARIO called patient in room for initial transition planning/care coordination assessment. RN DARIO introduced self and role at [facility]. Patient is alert and oriented. Patient willing to participate in assessment and is able to answer all questions appropriately. Care providers, pharmacy, and demographics verified. Patient wishes to discharge home, denies need for home health at this time. Patient states she has no further needs or concerns at this time. CM to follow for discharge planning needs that may arise. PCP: Dolly Specialists: none Preferred Pharmacy: [facility] Retail Insurance: [employer] [facility] Prescription Benefit: yes Living Will/HPOA: none LNOK: sons Living Arrangements: Patient lives with son in a 2 story home with bed and bath on first floor. Patient states she is in dependent at home. Transportation: self/son DME/HHC: Patient states she has cane and raised toilet at home. No previous HHC or SNF. Patient provided list of DME over phone and would like [facility], her insurances preferred provider. Disposition Plan: Patient to discharge home with family support and follow-up plans in place. Janett OLIVA, RN, CM
[2021-10-12 12:11] LABS: Bedside Glucose 197 mg/dL (70-110)
[2021-10-12] MEDS: guaiFENesin 10 ML UDC (200MG/10ML) 20 ML PO (16:28)
[2021-10-12] MEDS: HEPARIN/D5w 25,000 UNITS 25,000 UNITS/250 ML IV.SOLN. 10 UNITS IV (16:28)
[2021-10-12] MEDS: BENZOCAINE/MENTHOL 1 LOZENGE MUCOUS MEM (16:28)
[2021-10-12 16:50] LABS: Bedside Glucose 230 mg/dL (70-110)
[2021-10-12 22:25] LABS: Bedside Glucose 216 mg/dL (70-110)
[2021-10-12 23:07] LABS: Partial Thromboplast Time 64.7 Seconds (24.1-36.2)
[2021-10-13] VITALS (21 sets, daily range): BP systolic 106–160; BP diastolic 57–91; PULSE 61–81; RESP 16–34; TEMP 36.4–36.7; O2SAT 90–100
[2021-10-13] MEDS: guaiFENesin 10 ML UDC (200MG/10ML) 20 ML PO ×3 (00:09→21:23)
[2021-10-13 06:46] LABS: Bedside Glucose 137 mg/dL (70-110)
--- NOTE | 2021-10-13 08:39 | PCS.PANDOC ---
PANDEMIC DOCUMENTATION INITIATED: Date: 07/01/2021 Time: 190
[2021-10-13] MEDS: Famotidine 20 MG Tablet PO (09:16)
[2021-10-13] MEDS: BENZOCAINE/MENTHOL 1 LOZENGE MUCOUS MEM (09:16)
[2021-10-13] MEDS: Levothyroxine 75 MCG Tablet PO (09:16)
[2021-10-13] MEDS: dexAMETHasone 10 MG/ML Vial 6 MG IV (09:17)
[2021-10-13 09:25] LABS: Absolute Lymphocyte Count 1.53 X10^3/uL (0.83-4.51); Absolute Neutrophil Count 8.9 X10^3/uL (2.0-7.7); Basophil# 0.02 X10^3/uL; Basophil% 0.2 % (0-1); Eosinophil# 0.02 X10^3/uL; Eosinophils% 0.2 % (0-5); Hematocrit 39.4 % (37-47); Hemoglobin 13.1 g/dL (12.0-15.0); Lymphocyte # 1.53 X10^3/ul (0.83-4.51); Lymphocyte % 13.9 % (19-41); Mean Corp Hgb Conc 33.2 g/dL (32-36); Mean Corpuscular Volume 90.2 fL (81-99); Mean Platelet Vol. 10.8 fl (6.2-12.0); Monocyte% 3.6 % (0-10); NRBC Flagged by Analyzer 0 % (0-5); Neutrophil # 8.91 X10^3/uL (2.7-7.7); Neutrophil % 81.2 % (47-70); Platelet Count 277 K/mm3 (150-450); RBC Distribution Width CV 12.2 % (11.6-14.6); RBC Distribution Width SD 40.7 fl (35.1-43.9); Red Blood Count 4.37 M/mm3 (4.2-5.4)
[2021-10-13 09:35] LABS: Partial Thromboplast Time 45.9 Seconds (24.1-36.2)
[2021-10-13 09:52] LABS: ALB/GLOB Ratio 0.5 RATIO (0.9-2.4); AST(SGOT) 38 U/L (15-37); Alanine Aminotransfer ALT/SGPT 29 U/L (13-56); Albumin, Serum 2.2 g/dL (3.2-5.0); Alkaline Phosphatase 53 U/L (45-117); Anion Gap 6 (5-15); BUN 19 mg/dL (7-18); Calcium,Total 8.7 mg/dL (8.5-10.1); Chloride 105 mmol/L (98-107); Creatinine, Serum 0.73 mg/dL (0.55-1.02); EST Glomerular Filtration Rate 80 mL/min (>60); Est Glom Filt Rate - Afr Amer 97 mL/min (>60); Estimated Creatinine Clearance 32.53 ml/min; Globulin 4.4 g/dL (2.2-4.2); Glucose 127 mg/dL (74-106); Potassium 3.7 mmol/L (3.5-5.1); Protein, Total 6.6 g/dL (6.4-8.2); Sodium Level 141 mmol/L (136-145)
[2021-10-13] MEDS: Insulin Lispro 100 UNIT/ML INSULN.PEN SC ×3 (11:10→21:09)
[2021-10-13] MEDS: hydrALAZINE 20 MG/ML Vial 10 MG IV (11:11)
[2021-10-13 11:21] LABS: Bedside Glucose 177 mg/dL (70-110)
--- NOTE | 2021-10-13 11:21 | PCM.PN.INT ---
Assessment & Plan Assessment/Plan (1) Acute hypoxemic respiratory failure: (2) COVID-19: (3) Bilateral pulmonary embolism: PLAN: RECOMMENDATIONS: 1. Agree with Decadron (10/21/2021) and baricitinib (10/25/2021) therapy 2. Consider as needed nasal saline to avoid epistaxis 3. Continue full anticoagulation 4. Wean oxygen as tolerated 5. Monitor for hyperglycemia 6. Encourage Acapella, incentive spirometer and prone positioning as tolerated IMPRESSIONS: 1. Acute hypoxic respiratory failure secondary to COVID-19 with bilateral PE Patient with some improvement from admission. Clinical suspicion for improvement secondary to pulmonary embolism more than COVID-19. Exact onset of symptoms is unclear. Patient is potentially 14 days from symptom onset meaning Remdesivir would be of little clinical utility. Patient has been initiated on baricitinib. Patient does not appear to have contraindications at this time. Patient does not have a lot of underlying lung pathology. Continue with Decadron therapy, but will have to monitor for complications such as hyperglycemia. This is adequately controlled at this time. Possibly transition to a 10 a inhibitor once patient's clinical course is more stable to complete 6 months. Encourage Acapella, incentive spirometer and prone positioning as tolerated. 2. Hypothyroidism/advanced age/hypertension/unvaccinated status/poor primary care follow-up Complicates care, management, recovery and prognosis. Okay to continue with baseline medications. Clinical suspicion patient may have other comorbidities that have not been recognized secondary to failure to present to PCP. Patient does have an elevated bicarbonate suggestive of CO2 retention and hemoglobin A1c is elevated indicating probable diabetes. Could consider an echocardiogram for congestive heart failure, but elevated BNP may be secondary to PE Subjective Subjective Patient overall did well overnight. Patient is subjectively improved compared to yesterday. Patient is not reporting any epistaxis, nausea or vomiting. Patient does have a cough that is largely nonproductive. Objective Data Objective Data Vital Signs: Vital Signs Temp Pulse Resp BP Pulse Ox 36.6 C 73 27 H 160/67 H 95 10/13/21 10:00 10/13/21 11:11 10/13/21 10:00 10/13/21 11:11 10/13/21 10:00 Oxygen Flow Rate (L/min) 15 Oxygen Delivery Method Airvo Weight: 68.9 kg Body Mass Index (BMI) 26.7 Intake & Output: Intake and Output for Last 24 Hours 11/26/21 11/27/21 11/28/21 23:59 23:59 23:59 Intake Total 62.33 / 62.33 2034.63 / 2174.63 190 / 190 Output Total 350 / 850 750 / 750 Balance 62.33 / 62.33 1684.63 / 1324.63 -560 / -560 Lab / Micro Data Result Diagrams: 10/13/21 08:51 10/13/21 08:51 Labs: Laboratory Results - last 24 hr 10/12/21 12:02: POC Glucose 197 H 10/12/21 16:25: APTT 69.0 H 10/12/21 16:26: POC Glucose 230 H 10/12/21 22:14: POC Glucose 216 H 10/12/21 22:47: APTT 64.7 H 10/13/21 06:39: POC Glucose 137 H 10/13/21 08:51: APTT 45.9 H 10/13/21 08:51: WBC 11.0, RBC 4.37, Hgb 13.1, Hct 39.4, MCV 90.2, MCH 30.0, MCHC 33.2, RDW Std Deviation 40.7, RDW Coeff of Marguerite 12.2, Plt Count 277, MPV 10.8, Immature Gran % (Auto) 0.900, Neut % (Auto) 81.2 H, Lymph % (Auto) 13.9 L, [place] % (Auto) 3.6, Eos % (Auto) 0.2, Baso % (Auto) 0.2, Absolute Neuts (auto) 8.9 H, Absolute Lymphs (auto) 1.53, Nucleated RBC % 0 10/13/21 08:51: Sodium 141, Potassium 3.7, Chloride 105, Carbon Dioxide 30.0, Anion Gap 6, BUN 19 H, Creatinine 0.73, Estim Creat Clear Calc 32.53, Est GFR (MDRD) Af Amer 97, Est GFR (MDRD) Non-Af 80, BUN/Creatinine Ratio 26.0 H, Glucose 127 H, Calcium 8.7, Total Bilirubin 0.60, AST 38 H, ALT 29, Alkaline Phosphatase 53, Total Protein 6.6, Albumin 2.2 L, Globulin 4.4 H, Albumin/Globulin Ratio 0.5 L Micro: Microbiology 10/12/21 01:45 Urine, Clean Catch Legionella Antigen - Final 10/12/21 01:45 Urine, Clean Catch Streptococcus pneumoniae Antigen (M - Final 10/11/21 20:08 Mucosa - Nose Respiratory Panel (PCR) - Final 10/11/21 13:30 Nasal Secretion SARS-CoV-2 Antigen (Rapid) - Final Physical Exam Const alert and oriented x3 General Appearance: cooperative; Negative for in distress HEENT normocephalic, head/scalp atraumatic and moist oral mucous membranes Eyes PERRL, EOMs intact bilaterally and conjunctivae normal Neck full ROM Chest inspection of chest normal Chest Narrative: Symmetric expansion. No crepitus. Resp Auscultation: diminished lung sounds; Negative for rales, rhonchi or wheezes Cardio regular rate, regular rhythm, S1 normal heart sound, S2 normal heart sound, no murmurs, no rub and no gallops GI normal to inspection, nondistended, normoactive bowel sounds Extremity no clubbing, cyanosis or edema Skin no rashes or lesions noted Neuro oriented x3, CN's II-XII intact bilaterally and moves all extremities Psych cooperative and affect normal Appearance: well kempt Charges/Coding Visit Charges Inpatient E&M: 48476 Subs Hosp L3
--- NOTE | 2021-10-13 11:57 | PN.HOSP_ITS ---
Subjective Subjective Patient overnight with transition to air Vo although she does still feel improved since initial presentation. She denies any pleuritic chest discomfort and notes that her dyspnea and coughing is lessened despite this increased consumption need. Did again discuss the precarious situation and strongly encouraged her to continue aggressive incentive spirometry. She does state that she cannot prone but from discussion with staff has not tried this. Did discuss given her transition to air Vo intention for infectious disease consultation for barcitinib which has been started. Objective Data Objective Data Vital Signs: Vital Signs Temp Pulse Resp BP Pulse Ox 97.9 F 70 34 H 160/67 H 91 10/13/21 10:00 10/13/21 11:49 10/13/21 11:49 10/13/21 11:11 10/13/21 11:49 Oxygen Flow Rate (L/min) 15 Oxygen Delivery Method Airvo Weight: 151 lb 14.376 oz Body Mass Index (BMI) 26.7 Intake & Output: Intake and Output for Last 24 Hours 10/11/21 10/12/21 10/13/21 23:59 23:59 23:59 Intake Total 62.33 / 62.33 2034.63 / 2174.63 190 / 190 Output Total 350 / 850 750 / 750 Balance 62.33 / 62.33 1684.63 / 1324.63 -560 / -560 Lab / Micro Data Result Diagrams: 10/13/21 08:51 10/13/21 08:51 Labs: Laboratory Results - last 24 hr 10/12/21 12:02: POC Glucose 197 H 10/12/21 16:25: APTT 69.0 H 10/12/21 16:26: POC Glucose 230 H 10/12/21 22:14: POC Glucose 216 H 10/12/21 22:47: APTT 64.7 H 10/13/21 06:39: POC Glucose 137 H 10/13/21 08:51: APTT 45.9 H 10/13/21 08:51: WBC 11.0, RBC 4.37, Hgb 13.1, Hct 39.4, MCV 90.2, MCH 30.0, MCHC 33.2, RDW Std Deviation 40.7, RDW Coeff of Marguerite 12.2, Plt Count 277, MPV 10.8, Immature Gran % (Auto) 0.900, Neut % (Auto) 81.2 H, Lymph % (Auto) 13.9 L, [place] % (Auto) 3.6, Eos % (Auto) 0.2, Baso % (Auto) 0.2, Absolute Neuts (auto) 8.9 H, Absolute Lymphs (auto) 1.53, Nucleated RBC % 0 10/13/21 08:51: Sodium 141, Potassium 3.7, Chloride 105, Carbon Dioxide 30.0, Anion Gap 6, BUN 19 H, Creatinine 0.73, Estim Creat Clear Calc 32.53, Est GFR (MDRD) Af Amer 97, Est GFR (MDRD) Non-Af 80, BUN/Creatinine Ratio 26.0 H, Glucose 127 H, Calcium 8.7, Total Bilirubin 0.60, AST 38 H, ALT 29, Alkaline Phosphatase 53, Total Protein 6.6, Albumin 2.2 L, Globulin 4.4 H, Albumin/Globulin Ratio 0.5 L 10/13/21 11:10: POC Glucose 177 H Micro: Microbiology 10/12/21 01:45 Urine, Clean Catch Legionella Antigen - Final 10/12/21 01:45 Urine, Clean Catch Streptococcus pneumoniae Antigen (M - Final 10/11/21 20:08 Mucosa - Nose Respiratory Panel (PCR) - Final 10/11/21 13:30 Nasal Secretion SARS-CoV-2 Antigen (Rapid) - Final Physical Exam Narrative Physical Examination: General: Awake, alert, oriented x 3 and cooperative, seated upright in the PCU bed, mildly more fatigued, increased work of breathing and accessory muscle usage evident although patient denies dyspnea, transition now to air Vo. Skin: Normal color, normal turgor, no icterus, no cyanosis. HEENT: AT/NC, EOMI, PERRLA, mildly dry MM. Lungs: Diffusely diminished, greater bases, increased respiratory rate, accessory muscle usage, currently transitioned to air Vo, no rales, ronchi or wheezing. Heart: Regular rate with regular rhythm; no gallop, rub audible. Abdomen: Soft, overweight, NTTP, ND, normalized bowel sounds. Extremities: No cyanosis, clubbing, or edema. Neurological: Patient awake, alert, oriented as noted, cognitive function intact ; pupils equally reactive to light and accommodation, cranial nerves II-XII grossly normal, moving all 4 extremities, no focal deficits, strength severely global decrease secondary to acute presentation. Psychiatric: Affect appears more fatigued, increased work of breathing and accessory muscle usage, mildly increased from even the day prior, denies any dyspnea despite this, very flat affect, no acute evidence of depressive or anxiety feelings. Assessment & Plan Assessment/Plan (1) Acute hypoxemic respiratory failure: (2) COVID-19: (3) Bilateral pulmonary embolism: PLAN: The patient is an 86 y/o F w/ PMHx: HTN, Hypothyroidism who presents to the [facility] ED on 10/11/21 with history of ongoing fatigue, malaise, dyspnea with cough and rhinorrhea starting over the last 2 weeks as well as a very throbbing constant frontal headache, progressively worsening prompting eventual ED presentation. #1. Acute Hypoxic Respiratory Failure secondary to Acute Bilateral Pneumonia secondary to Acute Viral Syndrome, COVID-19: Patient admitted to the PCU, maintained on on COVID precautions with eventual positive COVID PCR results, maintained on oxygen with wean as tolerated to room air but do suspect patient will likely eventually need air Vo and/or BiPAP, PRN albuterol, HOB, IS parameters w/ pending sputum cultures, respiratory viral panel negative, urine antigens, ferritin 809, LDH 381, TCK 64, CRP 156, BNP 306, procalcitonin 0.15, cycled cardiac enzymes given strain potential which remained unremarkable, continue supportive care, closely monitor for worsening status for ARDS and multiorgan failure, initiated and continued on IV decadron x 10 doses, given presentation timeline not remdesivir candidate, 10/12/2021 evening transition to air Vo with infectious disease consulted and initiation of barcitinib. Pulmonary medicine also consulted and following. Despite frequent discussions about aggressive incentive spirometry, pulmonary toileting and positional changes including proning patient has not been doing these, again encouraged her this a.m. 10/13/2021. If patient does transition to BiPAP will transfer to the ICU. #2. Acute BL Pulmonary Embolism with suspected Cardiac strain secondary to #1 (BL PNA COVID): EKG without acute findings, cardiac serial enzymes unremarkable, maintain on telemetry as noted, once quarantine complete will need to obtain ECHO, BNP mildly elevated 306. Will continue therapeutic heparin drip regimen with pending insurance oral regimen investigation once appropriate. #3. Lactic acidosis: Lactic acid 3.8, likely secondary to acute presentation #1 secondary to hypoxemia, repeat 2.7, improved. #4. Hypokalemia: Admission K+ 3.1, magnesium 2.1, supplementation given, 10/13/2021 potassium 3.7. #5. Hyperglycemia with new onset diabetes mellitus type II: Admission glucose 171, hemoglobin A1c obtained and noted to be 7.0%, transition to ADA diet with Accu-Cheks with insulin sliding scale. Monitor for continued hyperglycemia especially in the setting of steroid usage and adjust sliding scale as needed versus potential addition of low-dose twice daily long-acting agent if necessary pending trending. #6. Hypertension: Notes she discontinued her atenolol secondary to lightheadedness symptoms, will hold re-addition especially given #1 presen tation, in interim PRN hydralazine. #7. Hypothyroidism: Continue home synthroid regimen. #8. DVT prophylaxis: SCDs, heparin drip as noted above. #9. CODE status: Patient does not have healthcare prep turning or living will in place. DNR-CCA with allowance of intubation. If patient does transition to BiPAP will transfer to the ICU. Charges/Coding Visit Charges Inpatient E&M: 71236 Subs Hosp L2
[2021-10-13] MEDS: Sodium Chloride 0.65% 1 SPRAY SPRAY.BTL 2 SPRAY NASAL (13:31)
[2021-10-13] MEDS: Acetaminophen 325 MG Tablet 650 MG PO (13:31)
[2021-10-13] MEDS: HEPARIN/D5w 25,000 UNITS 25,000 UNITS/250 ML IV.SOLN. 10 UNITS IV (15:47)
[2021-10-13 16:06] LABS: Bedside Glucose 275 mg/dL (70-110)
[2021-10-13 21:13] LABS: Partial Thromboplast Time 48.7 Seconds (24.1-36.2)
[2021-10-13] MEDS: Heparin Injection (Vial) 5,000 UNIT/ML VIAL IV (21:23)
[2021-10-13 22:16] LABS: Bedside Glucose 252 mg/dL (70-110)
[2021-10-14] VITALS (20 sets, daily range): BP systolic 129–185; BP diastolic 47–98; PULSE 61–91; RESP 17–30; TEMP 36.1–36.6; O2SAT 90–98
[2021-10-14] MEDS: hydrALAZINE 20 MG/ML Vial 10 MG IV ×2 (02:13→11:09)
[2021-10-14] MEDS: Acetaminophen 325 MG Tablet 650 MG PO ×2 (02:37→10:40)
[2021-10-14] MEDS: guaiFENesin 10 ML UDC (200MG/10ML) 20 ML PO ×2 (02:37→06:56)
[2021-10-14 03:22] LABS: Absolute Lymphocyte Count 1.21 X10^3/uL (0.83-4.51); Basophil# 0.02 X10^3/uL; Basophil% 0.2 % (0-1); Hematocrit 37.6 % (37-47); Lymphocyte # 1.21 X10^3/ul (0.83-4.51); Lymphocyte % 11.1 % (19-41); Mean Corp Hgb Conc 34.6 g/dL (32-36); Mean Corpuscular Hgb 30.7 pg (27.0-32.0); Mean Corpuscular Volume 88.7 fL (81-99); Mean Platelet Vol. 10.3 fl (6.2-12.0); Monocyte# 0.43 X10^3/uL; NRBC Flagged by Analyzer 0 % (0-5); Neutrophil # 9.03 X10^3/uL (2.7-7.7); Platelet Count 264 K/mm3 (150-450); RBC Distribution Width CV 12.2 % (11.6-14.6); RBC Distribution Width SD 39.5 fl (35.1-43.9); Red Blood Count 4.24 M/mm3 (4.2-5.4); White Blood Count 10.9 K/mm3 (4.4-11.0)
[2021-10-14 03:47] LABS: Partial Thromboplast Time 59.5 Seconds (24.1-36.2)
[2021-10-14 03:51] LABS: ALB/GLOB Ratio 0.5 RATIO (0.9-2.4); AST(SGOT) 46 U/L (15-37); Alanine Aminotransfer ALT/SGPT 36 U/L (13-56); Albumin, Serum 2.2 g/dL (3.2-5.0); Alkaline Phosphatase 59 U/L (45-117); Anion Gap 9 (5-15); BUN 16 mg/dL (7-18); BUN/Creat Ratio 24.8 RATIO (10-20); Calcium,Total 8.6 mg/dL (8.5-10.1); Chloride 105 mmol/L (98-107); Creatinine, Serum 0.65 mg/dL (0.55-1.02); EST Glomerular Filtration Rate 93 mL/min (>60); Est Glom Filt Rate - Afr Amer 112 mL/min (>60); Estimated Creatinine Clearance 32.53 ml/min; Globulin 4.4 g/dL (2.2-4.2); Glucose 142 mg/dL (74-106); Potassium 3.7 mmol/L (3.5-5.1); Protein, Total 6.6 g/dL (6.4-8.2); Sodium Level 141 mmol/L (136-145)
--- NOTE | 2021-10-14 06:37 | PCM.PN.HOSP ---
Subjective Subjective Patient with significant increase in oxygen requirements, specifically worsened following any attempts to get up although did improve over time. Patient upon appearance this morning and discussions appears more fatigued and states that she does have a notable frontal headache and despite evidence of respiratory distress denies dyspnea complaint. She does states she is still coughing. Patient denies fevers, chills, nausea, emesis, abdominal pain, chest pain. Objective Data Objective Data Vital Signs: Vital Signs Temp Pulse Resp BP Pulse Ox 97.6 F L 61 17 134/71 H 92 10/14/21 04:00 10/14/21 04:00 10/14/21 04:00 10/14/21 04:00 10/14/21 05:08 Oxygen Flow Rate (L/min) 54 Oxygen Delivery Method Airvo Weight: 153 lb 7.068 oz Body Mass Index (BMI) 26.7 Intake & Output: Intake and Output for Last 24 Hours 10/12/21 10/13/21 10/14/21 23:59 23:59 23:59 Intake Total 2034.63 / 2174.63 1279.00 / 1629.00 660.95 / 660.95 Output Total 350 / 850 950 / 1700 1150 / 1150 Balance 1684.63 / 1324.63 329.00 / -71.00 -489.05 / -489.05 Lab / Micro Data Result Diagrams: 10/14/21 03:08 10/14/21 03:08 Labs: Laboratory Results - last 24 hr 10/13/21 06:39: POC Glucose 137 H 10/13/21 08:51: APTT 45.9 H 10/13/21 08:51: WBC 11.0, RBC 4.37, Hgb 13.1, Hct 39.4, MCV 90.2, MCH 30.0, MCHC 33.2, RDW Std Deviation 40.7, RDW Coeff of Marguerite 12.2, Plt Count 277, MPV 10.8, Immature Gran % (Auto) 0.900, Neut % (Auto) 81.2 H, Lymph % (Auto) 13.9 L, [place] % (Auto) 3.6, Eos % (Auto) 0.2, Baso % (Auto) 0.2, Absolute Neuts (auto) 8.9 H, Absolute Lymphs (auto) 1.53, Nucleated RBC % 0 10/13/21 08:51: Sodium 141, Potassium 3.7, Chloride 105, Carbon Dioxide 30.0, Anion Gap 6, BUN 19 H, Creatinine 0.73, Estim Creat Clear Calc 32.53, Est GFR (MDRD) Af Amer 97, Est GFR (MDRD) Non-Af 80, BUN/Creatinine Ratio 26.0 H, Glucose 127 H, Calcium 8.7, Total Bilirubin 0.60, AST 38 H, ALT 29, Alkaline Phosphatase 53, Total Protein 6.6, Albumin 2.2 L, Globulin 4.4 H, Albumin/Globulin Ratio 0.5 L 10/13/21 11:10: POC Glucose 177 H 10/13/21 15:50: POC Glucose 275 H 10/13/21 20:29: APTT 48.7 H 10/13/21 21:08: POC Glucose 252 H 10/14/21 03:08: WBC 10.9, RBC 4.24, Hgb 13.0, Hct 37.6, MCV 88.7, MCH 30.7, MCHC 34.6, RDW Std Deviation 39.5, RDW Coeff of Marguerite 12.2, Plt Count 264, MPV 10.3, Immature Gran % (Auto) 1.700 H, Neut % (Auto) 83.0 H, Lymph % (Auto) 11.1 L, [place] % (Auto) 4.0, Eos % (Auto) 0.0, Baso % (Auto) 0.2, Absolute Neuts (auto) 9.0 H, Absolute Lymphs (auto) 1.21, Nucleated RBC % 0 10/14/21 03:08: Sodium 141, Potassium 3.7, Chloride 105, Carbon Dioxide 27.0, Anion Gap 9, BUN 16, Creatinine 0.65, Estim Creat Clear Calc 32.53, Est GFR (MDRD) Af Amer 112, Est GFR (MDRD) Non-Af 93, BUN/Creatinine Ratio 24.8 H, Glucose 142 H, Calcium 8.6, Total Bilirubin 0.50, AST 46 H, ALT 36, Alkaline Phosphatase 59, Total Protein 6.6, Albumin 2.2 L, Globulin 4.4 H, Albumin/Globulin Ratio 0.5 L 10/14/21 03:08: APTT 59.5 H Micro: Microbiology 10/11/21 13:45 Blood Culture (Wb) - Anticubital Right Blood Culture - Preliminary No growth in 48 hours. 10/11/21 13:36 Blood Culture (Wb) - Anticubital Left Blood Culture - Preliminary No growth in 48 hours. 10/12/21 01:45 Urine, Clean Catch Legionella Antigen - Final 10/12/21 01:45 Urine, Clean Catch Streptococcus pneumoniae Antigen (M - Final 10/11/21 20:08 Mucosa - Nose Respiratory Panel (PCR) - Final 10/11/21 13:30 Nasal Secretion SARS-CoV-2 Antigen (Rapid) - Final Physical Exam Narrative Physical Examination: General: Awake, alert, oriented x 3 and cooperative, seated upright in the PCU bed, fatigued, increased work of breathing and accessory muscle usage with evidence of distress, currently on higher air Vo than day prior. Skin: Normal color, normal turgor, no icterus, no cyanosis. HEENT: AT/NC, EOMI, PERRLA, mildly dry MM, interval in place. Lungs: Diffusely diminished, greater bases, increased respiratory rate, accessory muscle usage, currently transitioned to air Vo, no rales, ronchi or wheezing. Heart: Regular rate with regular rhythm; no gallop, rub audible. Abdomen: Soft, overweight, NTTP, ND, normalized bowel sounds. Extremities: No cyanosis, clubbing, or edema. Neurological: Patient awake, alert, oriented as noted, cognitive function intact; pupils equally reactive to light and accommodation, cranial nerves II-XII grossly normal, moving all 4 extremities, no focal deficits, strength severely global decrease secondary to acute presentation. Psychiatric: Affect appears more fatigued, evidence of respiratory increasing distress, flat affect, no acute evidence of depressive or anxiety feelings. Assessment & Plan Assessment/Plan (1) Acute hypoxemic respiratory failure: (2) COVID-19: (3) Bilateral pulmonary embolism: PLAN: The patient is an 86 y/o F w/ PMHx: HTN, Hypothyroidism who presents to the [facility] ED on 10/11/21 with history of ongoing fatigue, malaise, dyspnea with cough and rhinorrhea starting over the last 2 weeks as well as a very throbbing constant frontal headache, progressively worsening prompting eventual ED presentation. #1. Acute Hypoxic Respiratory Failure secondary to Acute Bilateral Pneumonia secondary to Acute Viral Syndrome, COVID-19: Patient admitted to the PCU, maintained on on COVID precautions with eventual positive COVID PCR results, maintained on oxygen with wean as tolerated to room air but do suspect patient will likely eventually need air Vo and/or BiPAP, PRN albuterol, HOB, IS parameters w/ pending sputum cultures, respiratory viral panel negative, urine antigens, ferritin 809, LDH 381, TCK 64, CRP 156, BNP 306, procalcitonin 0.15, cycled cardiac enzymes given strain potential which remained unremarkable, continue supportive care, closely monitor for worsening status for ARDS and multiorgan failure, initiated and continued on IV decadron x 10 doses, given presentation timeline not remdesivir candidate, 10/12/2021 evening transition to air Vo with infectious disease consulted and initiation of barcitinib. Pulmonary medicine also consulted and following. Despite frequent discussions about aggressive incentive spirometry, pulmonary toileting and positional changes including proning patient has not been doing these, again encouraged her this a.m. infectious disease consulted and following, patient maintained on Barcitinib regimen initiated on 10/12/2021 with planned 14 doses, currently on day 3. If patient continues to worsen will necessitate transition to the ICU for BiPAP and consideration intubation pending continued monitoring. #2. Acute BL Pulmonary Embolism with suspected Cardiac strain secondary to #1 (BL PNA COVID): EKG without acute findings, cardiac serial enzymes unremarkable, maintain on telemetry as noted, once quarantine complete will need to obtain ECHO, BNP mildly elevated 306. Will continue therapeutic heparin drip regimen with pending insurance oral regimen investigation once appropriate. #3. Lactic acidosis: Lactic acid 3.8, likely secondary to acute presentation #1 secondary to hypoxemia, repeat 2.7, improved. #4. Hypokalemia: Admission K+ 3.1, magnesium 2.1, supplementation given, 10/14/2021 potassium 3.7. #5. Hyperglycemia with new onset diabetes mellitus type II: Admission glucose 171, hemoglobin A1c obtained and noted to be 7.0%, transition to ADA diet with Accu-Cheks with insulin sliding scale. Monitor for continued hyperglycemia especially in the setting of steroid usage and adjust sliding scale as needed versus potential addition of low-dose twice daily long-acting agent if necessary pending trending. #6. Hypertension: Notes she discontinued her atenolol secondary to lightheadedness symptoms, will hold re-addition especially given #1 presentation, in interim PRN hydralazine. #7. Hypothyroidism: Continue home synthroid regimen. #8. DVT prophylaxis: SCDs, heparin drip as noted above. #9. CODE status: Patient does not have healthcare prep turning or living will in place. DNR-CCA with allowance of intubation. If patient does transition to BiPAP will transfer to the ICU. Charges/Coding Visit Charges Inpatient E&M: 57449 Subs Hosp L3
[2021-10-14 07:05] LABS: Bedside Glucose 135 mg/dL (70-110)
--- NOTE | 2021-10-14 08:38 | PN.CC_ITS ---
Assessment & Plan Assessment/Plan (1) Acute hypoxemic respiratory failure: (2) COVID-19: (3) Bilateral pulmonary embolism: PLAN: RECOMMENDATIONS: 1. Agree with Decadron (10/21/2021) and baricitinib (10/25/2021) therapy 2. Consider as needed nasal saline to avoid epistaxis 3. Continue full anticoagulation 4. Wean oxygen as tolerated 5. Monitor for hyperglycemia. No indication for additional insulin at this time 6. Encourage Acapella, incentive spirometer and prone positioning as tolerated IMPRESSIONS: 1. Acute hypoxic respiratory failure secondary to COVID-19 with bilateral PE Patient with some improvement from admission. Clinical suspicion for improvement secondary to pulmonary embolism more than COVID-19. Exact onset of symptoms is unclear. Patient is potentially 14 days from symptom onset meaning Remdesivir would be of little clinical utility. Patient has been initiated on baricitinib. Patient does not appear to have contraindications at this time. Patient does not have a lot of underlying lung pathology. Continue with Decadron therapy, but will have to monitor for complications such as hypergly cemia. This is adequately controlled at this time. Possibly transition to a 10 a inhibitor once patient's clinical course is more stable (lower FiO2 requirements) to complete 6 months. Encourage Acapella, incentive spirometer and prone positioning as tolerated. We will hold on diuretic therapy for now as patient is only +1.5 L over hospitalization. 2. Hypothyroidism/advanced age/hypertension/unvaccinated status/poor primary care follow-up Complicates care, management, recovery and prognosis. Okay to continue with baseline medications. Clinical suspicion patient may have other comorbidities that have not been recognized secondary to failure to present to [facility]. Patient does have an elevated bicarbonate suggestive of CO2 retention and hemoglobin A1c is elevated indicating probable diabetes. Could consider an echocardiogram for congestive heart failure, but elevated BNP may be secondary to PE Subjective Subjective Patient feels subjectively worse compared to yesterday. Patient attributes this to they did not let me sleep. Patient continues to have a cough, but denies any production. No fevers have been noted overnight Objective Data Objective Data Vital Signs: Vital Signs Temp Pulse Resp BP Pulse Ox 36.4 C L 61 17 134/71 H 92 10/14/21 04:00 10/14/21 04:00 10/14/21 04:00 10/14/21 04:00 10/14/21 05:08 Oxygen Flow Rate (L/min) 54 Oxygen Delivery Method Airvo Weight: 69.6 kg Body Mass Index (BMI) 26.7 Intake & Output: Intake and Output for Last 24 Hours 10/12/21 10/13/21 10/14/21 23:59 23:59 23:59 Intake Total 2034.63 / 2174.63 1279.00 / 1629.00 660.95 / 660.95 Output Total 350 / 850 950 / 1700 1150 / 1150 Balance 1684.63 / 1324.63 329.00 / -71.00 -489.05 / -489.05 Lab / Micro Data Result Diagrams: 10/14/21 03:08 10/14/21 03:08 Labs: Laboratory Results - last 24 hr 10/13/21 08:51: APTT 45.9 H 10/13/21 08:51: WBC 11.0, RBC 4.37, Hgb 13.1, Hct 39.4, MCV 90.2, MCH 30.0, MCHC 33.2, RDW Std Deviation 40.7, RDW Coeff of Marguerite 12.2, Plt Count 277, MPV 10.8, Immature Gran % (Auto) 0.900, Neut % (Auto) 81.2 H, Lymph % (Auto) 13.9 L, [place] % (Auto) 3.6, Eos % (Auto) 0.2, Baso % (Auto) 0.2, Absolute Neuts (auto) 8.9 H, Absolute Lymphs (auto) 1.53, Nucleated RBC % 0 10/13/21 08:51: Sodium 141, Potassium 3.7, Chloride 105, Carbon Dioxide 30.0, Anion Gap 6, BUN 19 H, Creatinine 0.73, Estim Creat Clear Calc 32.53, Est GFR (MDRD) Af Amer 97, Est GFR (MDRD) Non-Af 80, BUN/Creatinine Ratio 26.0 H, Glucose 127 H, Calcium 8.7, Total Bilirubin 0.60, AST 38 H, ALT 29, Alkaline Phosphatase 53, Total Protein 6.6, Albumin 2.2 L, Globulin 4.4 H, Albumi n/Globulin Ratio 0.5 L 10/13/21 11:10: POC Glucose 177 H 10/13/21 15:50: POC Glucose 275 H 10/13/21 20:29: APTT 48.7 H 10/13/21 21:08: POC Glucose 252 H 10/14/21 03:08: WBC 10.9, RBC 4.24, Hgb 13.0, Hct 37.6, MCV 88.7, MCH 30.7, MCHC 34.6, RDW Std Deviation 39.5, RDW Coeff of Marguerite 12.2, Plt Count 264, MPV 10.3, Immature Gran % (Auto) 1.700 H, Neut % (Auto) 83.0 H, Lymph % (Auto) 11.1 L, [place] % (Auto) 4.0, Eos % (Auto) 0.0, Baso % (Auto) 0.2, Absolute Neuts (auto) 9.0 H, Absolute Lymphs (auto) 1.21, Nucleated RBC % 0 10/14/21 03:08: Sodium 141, Potassium 3.7, Chloride 105, Carbon Dioxide 27.0, Anion Gap 9, BUN 16, Creatinine 0.65, Estim Creat Clear Calc 32.53, Est GFR (MDRD) Af Amer 112, Est GFR (MDRD) Non-Af 93, BUN/Creatinine Ratio 24.8 H, Glucose 142 H, Calcium 8.6, Total Bilirubin 0.50, AST 46 H, ALT 36, Alkaline Phosphatase 59, Total Protein 6.6, Albumin 2.2 L, Globulin 4.4 H, Albumin/Globulin Ratio 0.5 L 10/14/21 03:08: APTT 59.5 H 10/14/21 06:45: POC Glucose 135 H Micro: Microbiology 10/11/21 13:45 Blood Culture (Wb) - Anticubital Right Blood Culture - Preliminary No growth in 48 hours. 10/11/21 13:36 Blood Culture (Wb) - Anticubital Left Blood Culture - Preliminary No growth in 48 hours. 10/12/21 01:45 Urine, Clean Catch Legionella Antigen - Final 10/12/21 01:45 Urine, Clean Catch Streptococcus pneumoniae Antigen (M - Final 10/11/21 20:08 Mucosa - Nose Respiratory Panel (PCR) - Final 10/11/21 13:30 Nasal Secretion SARS-CoV-2 Antigen (Rapid) - Final Physical Exam Const alert and oriented x3 General Appearance: cooperative; Negative for in distress HEENT normocephalic, head/scalp atraumatic and moist oral mucous membranes Eyes PERRL, EOMs intact bilaterally and conjunctivae normal Neck full ROM Chest inspection of chest normal Chest: symmetrical chest wall rise; Negative for crepitus Resp Auscultation: diminished lung sounds; Negative for rales, rhonchi or wheezes Cardio regular rate, regular rhythm, S1 normal heart sound, S2 normal heart sound, no murmurs, no rub and no gallops GI normal to inspection, nondistended, normoactive bowel sounds Extremity no clubbing, cyanosis or edema Skin no rashes or lesions noted Neuro oriented x3, CN's II-XII intact bilaterally and moves all extremities Psych cooperative and affect normal Appearance: well kecarmen Charges/Coding Visit Charges Inpatient E&M: 72736 Subs Hosp L3
[2021-10-14] MEDS: Famotidine 20 MG Tablet PO (08:51)
[2021-10-14] MEDS: Levothyroxine 75 MCG Tablet PO (08:51)
[2021-10-14] MEDS: dexAMETHasone 10 MG/ML Vial 6 MG IV (08:52)
[2021-10-14 10:25] LABS: Partial Thromboplast Time 57.3 Seconds (24.1-36.2)
[2021-10-14] MEDS: guaiFENesin 1,200 MG Tablet 1200 MG PO ×2 (10:40→21:56)
[2021-10-14] MEDS: Insulin Lispro 100 UNIT/ML INSULN.PEN SC ×3 (11:06→21:55)
[2021-10-14 11:09] LABS: Bedside Glucose 180 mg/dL (70-110)
[2021-10-14] MEDS: HEPARIN/D5w 25,000 UNITS 25,000 UNITS/250 ML IV.SOLN. 11 UNITS IV (12:32)
--- NOTE | 2021-10-14 13:09 | PCM.CONS.GEN ---
Assessment & Plan Assessment/Plan (1) Acute hypoxemic respiratory failure: (2) COVID-19: PLAN: Covid, unvaccinated, sx started around 10/01. Recommend 20 days isolation, vaccination once past that point. On dex, hep gtt, and baricitinib. Will follow, thank you (3) Bilateral pulmonary embolism: HPI Consult Data Date of Consult: 10/14/21 HPI Narrative HPI Narrative: SARAH SCHMITZ, is a 86 F who presented 10/11 to ED with 1-2 weeks cough, congestion, fever, fatigue, dyspnea, change in taste/smell. Unvaccinated for covid. Lives with son who is vaccinated and feeling fine. Came to ED, admitted on dex, hep gtt due to PEs seen. Now worsened O2, on airvo. Full ROS performed and neg except as noted above. [facility] Medical History Hypertension Hypothyroidism Overweight (BMI 25.0-29.9) Home Medications atenolol [Tenormin] 12.5 mg PO DAILY 05/17/17 [History Last Taken 10/20/19] levothyroxine 75 mcg PO DAILY 05/17/17 [History Last Taken 09/29/19 0730] Allergy/AdvReac Type Severity Reaction Status Date / Time No Known Allergies Allergy Verified 10/11/21 12:14 Family History Mother Cancer Family History other Surgical History S/P hysterectomy Social History household members: other details: Notes her son lives with her. Smoking Status: Never smoker alcohol intake: never substance use type: does not use Physical Exam Const alert General Appearance: cooperative HEENT normocephalic and head/scalp atraumatic Eyes PERRL and EOMs intact bilaterally Neck supple and No nodes Resp Auscultation: diminished lung sounds Cardio regular rate and regular rhythm GI normal to inspection, nondistended, normoactive bowel sounds Extremity no clubbing, cyanosis or edema Skin no rashes or lesions noted Neuro CN's II-XII intact bilaterally Lab / Micro Data Result Diagrams: 10/14/21 03:08 10/14/21 03:08 Labs: Laboratory Results - last 24 hr 10/13/21 15:50: POC Glucose 275 H 10/13/21 20:29: APTT 48.7 H 10/13/21 21:08: POC Glucose 252 H 10/14/21 03:08: WBC 10.9, RBC 4.24, Hgb 13.0, Hct 37.6, MCV 88.7, MCH 30.7, MCHC 34.6, RDW Std Deviation 39.5, RDW Coeff of Marguerite 12.2, Plt Count 264, MPV 10.3, Immature Gran % (Auto) 1.700 H, Neut % (Auto) 83.0 H, Lymph % (Auto) 11.1 L, [place] % (Auto) 4.0, Eos % (Auto) 0.0, Baso % (Auto) 0.2, Absolute Neuts (auto) 9.0 H, Absolute Lymphs (auto) 1.21, Nucleated RBC % 0 10/14/21 03:08: Sodium 141, Potassium 3.7, Chloride 105, Carbon Dioxide 27.0, Anion Gap 9, BUN 16, Creatinine 0.65, Estim Creat Clear Calc 32.53, Est GFR (MDRD) Af Amer 112, Est GFR (MDRD) Non-Af 93, BUN/Creatinine Ratio 24.8 H, Glucose 142 H, Calcium 8.6, Total Bilirubin 0.50, AST 46 H, ALT 36, Alkaline Phosphatase 59, Total Protein 6.6, Albumin 2.2 L, Globulin 4.4 H, Albumin/Globulin Ratio 0.5 L 10/14/21 03:08: APTT 59.5 H 10/14/21 06:45: POC Glucose 135 H 10/14/21 10:06: APTT 57.3 H 10/14/21 11:03: POC Glucose 180 H Micro: Microbiology 10/11/21 13:45 Blood Culture (Wb) - Anticubital Right Blood Culture - Preliminary No growth in 48 hours. 10/11/21 13:36 Blood Culture (Wb) - Anticubital Left Blood Culture - Preliminary No growth in 48 hours.
[2021-10-14 18:05] LABS: Bedside Glucose 237 mg/dL (70-110)
[2021-10-14 22:16] LABS: Bedside Glucose 192 mg/dL (70-110)
[2021-10-15] VITALS (17 sets, daily range): BP systolic 141–164; BP diastolic 61–85; PULSE 56–78; RESP 20–26; TEMP 36.5–36.8; O2SAT 93–100
[2021-10-15] MEDS: Acetaminophen 325 MG Tablet 650 MG PO
--- NOTE | 2021-10-15 00:43 | CPS ---
Patient was unable to tolerate BiPAP at different settings. Kept requesting to take it off.
[2021-10-15] MEDS: hydrALAZINE 20 MG/ML Vial 10 MG IV (04:17)
[2021-10-15] MEDS: 0.9% Saline Lock 10 ML Syringe IV ×3 (04:19→16:56)
--- NOTE | 2021-10-15 06:34 | PCM.PN.HOSP ---
Subjective Subjective Patient overnight unfortunately took off her air Vo to use the restroom and became significantly hypoxic following with a significant timeline until she clinically improved with initial BiPAP attempt however she declined she was unable to tolerate this and Arava was restarted with eventual recovery but it did take a while. Patient denies any complaints currently and does not feel as though she is worsened. She denies dyspnea but does appear dyspneic upon evaluation. Patient denies fevers, chills, nausea, emesis, abdominal pain, chest pain. Objective Data Objective Data Vital Signs: Vital Signs Temp Pulse Resp BP Pulse Ox 97.9 F 72 20 H 164/81 H 99 10/15/21 04:04 10/15/21 04:17 10/15/21 04:04 10/15/21 04:17 10/15/21 04:04 Oxygen Flow Rate (L/min) 50 Oxygen Delivery Method Airvo Weight: 153 lb 7.068 oz Body Mass Index (BMI) 26.7 Intake & Output: Intake and Output for Last 24 Hours 10/13/21 10/14/21 10/15/21 23:59 23:59 23:59 Intake Total 1279.00 / 1629.00 1056.84 / 1056.84 Output Total 950 / 1700 1700 / 1700 Balance 329.00 / -71.00 -643.16 / -643.16 Lab / Micro Data Result Diagrams: 10/15/21 07:24 10/15/21 07:24 Labs: Laboratory Results - last 24 hr 10/14/21 06:45: POC Glucose 135 H 10/14/21 10:06: APTT 57.3 H 10/14/21 11:03: POC Glucose 180 H 10/14/21 17:57: POC Glucose 237 H 10/14/21 21:55: POC Glucose 192 H Micro: Microbiology 10/11/21 13:45 Blood Culture (Wb) - Anticubital Right Blood Culture - Preliminary No growth in 48 hours. 10/11/21 13:36 Blood Culture (Wb) - Anticubital Left Blood Culture - Preliminary No growth in 48 hours. 10/12/21 01:45 Urine, Clean Catch Legionella Antigen - Final 10/12/21 01:45 Urine, Clean Catch Streptococcus pneumoniae Antigen (M - Final 10/11/21 20:08 Mucosa - Nose Respiratory Panel (PCR) - Final 10/11/21 13:30 Nasal Secretion SARS-CoV-2 Antigen (Rapid) - Final Physical Exam Narrative Physical Examination: General: Awake, alert, oriented x 3 and cooperative, seated upright in the PCU bed, fatigued, still on higher air Vo, increased work of breathing and accessory muscle usage present. Skin: Normal color, normal turgor, no icterus, no cyanosis. HEENT: AT/NC, EOMI, PERRLA, mildly dry MM, air Vo in place. Lungs: Diffusely diminished, greater bases, increased respiratory rate, accessory muscle usage ongoing, currently transitioned to air Vo, no rales, ronchi or wheezing. Heart: Regular rate with regular rhythm; no gallop, rub audible. Abdomen: Soft, overweight, NTTP, ND, normalized bowel sounds. Extremities: No cyanosis, clubbing, or edema. Neurological: Patient awake, alert, oriented as noted, cognitive function intact; pupils equally reactive to light and accommodation, cranial nerves II-XII grossly normal, moving all 4 extremities, no focal deficits, strength severely global decrease secondary to acute presentation. Psychiatric: Affect appears fatigued, still evidence of respiratory compromise, continued flat affect, no acute evidence of depressive or anxiety feelings. Assessment & Plan Assessment/Plan (1) Acute hypoxemic respiratory failure: (2) COVID-19: (3) Bilateral pulmonary embolism: PLAN: The patient is an 86 y/o F w/ PMHx: HTN, Hypothyroidism who presents to the [facility] ED on 10/11/21 with history of ongoing fatigue, malaise, dyspnea with cough and rhinorrhea starting over the last 2 weeks as well as a very throbbing constant frontal headache, progressively worsening prompting eventual ED presentation. #1. Acute Hypoxic Respiratory Failure secondary to Acute Bilateral Pneumonia secondary to Acute Viral Syndrome, COVID-19: Patient admitted to the PCU, maintained on on COVID precautions with eventual positive COVID PCR results, maintained on oxygen with wean as tolerated to room air but do suspect patient will likely eventually need air Vo and/or BiPAP, PRN albuterol, HOB, IS parameters w/ pending sputum cultures, respiratory viral panel negative, urine antigens, ferritin 809, LDH 381, TCK 64, CRP 156, BNP 306, procalcitonin 0.15, cycled cardiac enzymes given strain potential which remained unremarkable, continue supportive care, closely monitor for worsening status for ARDS and multiorgan failure, initiated and continued on IV decadron x 10 doses, given presentation timeline not remdesivir candidate, 10/12/2021 evening transition to air Vo with infectious disease consulted and initiation of barcitinib. Pulmonary medicine also consulted and following. Despite frequent discussions about aggressive incentive spirometry, pulmonary toileting and positional changes including proning patient has not been doing these, again encouraged her this a.m. infectious disease consulted and following, patient maintained on Barcitinib regimen initiated on 10/12/2021 with planned 14 doses, currently on day #3. If patient necessitates transition to BiPAP will transfer to the ICU. Patient did not tolerate BiPAP well with acute respiratory decline 10/14/2021 overnight secondary to taking her air Vo off to go to the restroom therefore she may require intubation as opposed to BiPAP if unable to tolerate again. #2. Acute BL Pulmonary Embolism with suspected Cardiac strain secondary to #1 (BL PNA COVID): EKG without acute findings, cardiac serial enzymes unremarkable, maintain on telemetry as noted, once quarantine complete will need to obtain ECHO, BNP mildly elevated 306. Initially given presentation maintained on heparin drip, to avoid ongoing excessive labs will at this time transition patient to therapeutic Lovenox. #3. Lactic acidosis: Lactic acid 3.8, likely secondary to acute presentation #1 secondary to hypoxemia, repeat 2.7, improved. #4. Hypokalemia: Admission K+ 3.1, magnesium 2.1, supplementation given, 10/15/2021 potassium 3.6. #5. Hyperglycemia with new onset diabetes mellitus type II: Admission glucose 171, hemoglobin A1c obtained and noted to be 7.0%, transition to ADA diet with Accu-Cheks with insulin sliding scale. Monitor for continued hyperglycemia especially in the setting of steroid usage and adjust sliding scale as needed versus potential addition of low-dose twice daily long-acting agent if necessary pending trending. #6. Hypertension: Notes she discontinued her atenolol secondary to lightheadedness symptoms, BPs remain elevated above goal, given trend will initiate lisinopril low dose regimen, PRN IV hydralazine. #7. Hypothyroidism: Continue home synthroid regimen. #8. DVT prophylaxis: SCDs, heparin drip-->therapeutic lovenox. #9. CODE status: Patient does not have healthcare prep turning or living will in place. DNR-CCA with allowance of intubation. If patient does transition to BiPAP will transfer to the ICU. Charges/Coding Visit Charges Inpatient E&M: 48122 Subs Hosp L2
[2021-10-15 06:51] LABS: Bedside Glucose 131 mg/dL (70-110)
[2021-10-15 07:34] LABS: Absolute Lymphocyte Count 1.22 X10^3/uL (0.83-4.51); Absolute Neutrophil Count 10.3 X10^3/uL (2.0-7.7); Basophil# 0.03 X10^3/uL; Basophil% 0.2 % (0-1); Eosinophil# 0.02 X10^3/uL; Eosinophils% 0.2 % (0-5); Hematocrit 38.2 % (37-47); Hemoglobin 13.2 g/dL (12.0-15.0); Lymphocyte # 1.22 X10^3/ul (0.83-4.51); Lymphocyte % 9.7 % (19-41); Mean Corp Hgb Conc 34.6 g/dL (32-36); Mean Corpuscular Hgb 30.8 pg (27.0-32.0); Mean Platelet Vol. 9.9 fl (6.2-12.0); Monocyte# 0.46 X10^3/uL; Monocyte% 3.7 % (0-10); NRBC Flagged by Analyzer 0 % (0-5); Neutrophil # 10.34 X10^3/uL (2.7-7.7); Neutrophil % 82.5 % (47-70); Platelet Count 295 K/mm3 (150-450); RBC Distribution Width CV 12.6 % (11.6-14.6); Red Blood Count 4.29 M/mm3 (4.2-5.4); White Blood Count 12.5 K/mm3 (4.4-11.0)
[2021-10-15 08:01] LABS: Partial Thromboplast Time 69.1 Seconds (24.1-36.2)
[2021-10-15 08:02] LABS: ALB/GLOB Ratio 0.5 RATIO (0.9-2.4); AST(SGOT) 70 U/L (15-37); Alanine Aminotransfer ALT/SGPT 61 U/L (13-56); Albumin, Serum 2.3 g/dL (3.2-5.0); Alkaline Phosphatase 64 U/L (45-117); Anion Gap 7 (5-15); BUN 16 mg/dL (7-18); BUN/Creat Ratio 25.8 RATIO (10-20); Calcium,Total 8.5 mg/dL (8.5-10.1); Chloride 104 mmol/L (98-107); Creatinine, Serum 0.62 mg/dL (0.55-1.02); EST Glomerular Filtration Rate 97 mL/min (>60); Est Glom Filt Rate - Afr Amer 117 mL/min (>60); Estimated Creatinine Clearance 32.53 ml/min; Globulin 4.2 g/dL (2.2-4.2); Glucose 122 mg/dL (74-106); Potassium 3.6 mmol/L (3.5-5.1); Protein, Total 6.5 g/dL (6.4-8.2); Sodium Level 140 mmol/L (136-145)
[2021-10-15] MEDS: HEPARIN/D5w 25,000 UNITS 25,000 UNITS/250 ML IV.SOLN. 11 UNITS IV (10:55)
[2021-10-15] MEDS: Famotidine 20 MG Tablet PO (10:58)
[2021-10-15] MEDS: dexAMETHasone 10 MG/ML Vial 6 MG IV (10:58)
[2021-10-15] MEDS: guaiFENesin 1,200 MG Tablet 1200 MG PO ×2 (10:58→21:55)
[2021-10-15] MEDS: Levothyroxine 75 MCG Tablet PO (10:58)
[2021-10-15 11:45] LABS: Bedside Glucose 146 mg/dL (70-110)
[2021-10-15 14:02] LABS: Partial Thromboplast Time 56.4 Seconds (24.1-36.2)
[2021-10-15] MEDS: Lisinopril 5 MG Tablet PO (16:56)
[2021-10-15] MEDS: Insulin Lispro 100 UNIT/ML INSULN.PEN SC ×2 (17:02→21:56)
--- NOTE | 2021-10-15 17:02 | PCM.PN.INT ---
Assessment & Plan Assessment/Plan (1) Acute hypoxemic respiratory failure: (2) COVID-19: (3) Bilateral pulmonary embolism: PLAN: RECOMMENDATIONS: 1. Agree with Decadron (10/21/2021) and baricitinib (10/25/2021) therapy 2. Consider as needed nasal saline to avoid epistaxis 3. Continue full anticoagulation 4. Wean oxygen as tolerated 5. Monitor for hyperglycemia. No indication for additional insulin at this time 6. Encourage Acapella, incentive spirometer and prone positioning as tolerated 7. Diuresis as necessary to maintain euvolemia IMPRESSIONS: 1. Acute hypoxic respiratory failure secondary to COVID-19 with bilateral PE Patient with some improvement from admission. Clinical suspicion for improvement secondary to pulmonary embolism more than COVID-19. Exact onset of symptoms is unclear. Patient is potentially 14 days from symptom onset meaning Remdesivir would be of little clinical utility. Patient has been initiated on baricitinib. Patient does not appear to have contraindications at this time. Patient does not have a lot of underlying lung pathology. Continue with Decadron therapy, but will have to monitor for complications such as hyperglycemia. This is adequately controlled at this time. Possibly transition to a 10 a inhibitor once patient's clinical course is more stable (lower FiO2 requirements) to complete 6 months. Encourage Acapella, incentive spirometer and prone positioning as tolerated. We will give patient a small diuretic as she is over 2 L positive for the hospitalization 2. Hypothyroidism/advanced age/hypertension/unvaccinated status/poor primary care follow-up Complicates care, management, recovery and prognosis. Okay to continue with baseline medications. Clinical suspicion patient may have other comorbidities that have not been recognized secondary to failure to present to PCP. Patient does have an elevated bicarbonate suggestive of CO2 retention and hemoglobin A1c is elevated indicating probable diabetes. Could consider an echocardiogram for congestive heart failure, but elevated BNP may be secondary to PE also Subjective Subjective Patient did okay overnight. No acute issues were reported. Patient subjectively feels improved today compared to yesterday. Patient has reported more of a cough, but states this is not significantly productive. Patient denies any current chest pain or abdominal pain. Objective Data Objective Data Vital Signs: Vital Signs Temp Pulse Resp BP Pulse Ox 36.8 C 75 20 H 156/75 H 95 10/15/21 16:52 10/15/21 16:52 10/15/21 16:52 10/15/21 16:52 10/15/21 16:52 Oxygen Flow Rate (L/min) 60 Oxygen Delivery Method Airvo Weight: 69.5 kg Body Mass Index (BMI) 26.7 Intake & Output: Intake and Output for Last 24 Hours 10/13/21 10/14/21 10/15/21 23:59 23:59 23:59 Intake Total 1279.00 / 1629.00 1056.84 / 1056.84 960.39 / 960.39 Output Total 950 / 1700 1700 / 1700 200 / 200 Balance 329.00 / -71.00 -643.16 / -643.16 760.39 / 760.39 Lab / Micro Data Result Diagrams: 10/15/21 07:24 10/15/21 07:24 Labs: Laboratory Results - last 24 hr 10/14/21 17:57: POC Glucose 237 H 10/14/21 21:55: POC Glucose 192 H 10/15/21 06:39: POC Glucose 131 H 10/15/21 07:24: WBC 12.5 H, RBC 4.29, Hgb 13.2, Hct 38.2, MCV 89.0, MCH 30.8, MCHC 34.6, RDW Std Deviation 41.0, RDW Coeff of Marguerite 12.6, Plt Count 295, MPV 9.9, Immature Gran % (Auto) 3.700 H, Neut % (Auto) 82.5 H, Lymph % (Auto) 9.7 L, [place] % (Auto) 3.7, Eos % (Auto) 0.2, Baso % (Auto) 0.2, Absolute Neuts (auto) 10.3 H, Absolute Lymphs (auto) 1.22, Nucleated RBC % 0 10/15/21 07:24: Sodium 140, Potassium 3.6, Chloride 104, Carbon Dioxide 29.0, Anion Gap 7, BUN 16, Creatinine 0.62, Estim Creat Clear Calc 32.53, Est GFR (MDRD) Af Amer 117, Est GFR (MDRD) Non-Af 97, BUN/Creatinine Ratio 25.8 H, Glucose 122 H, Calcium 8.5, Total Bilirubin 0.40, AST 70 H, ALT 61 H, Alkaline Phosphatase 64, Total Protein 6.5, Albumin 2.3 L, Globulin 4.2, Albumin/Globulin Ratio 0.5 L 10/15/21 07:24: APTT 69.1 H 10/15/21 11:16: POC Glucose 146 H 10/15/21 13:40: APTT 56.4 H Micro: Microbiology 10/11/21 13:45 Blood Culture (Wb) - Anticubital Right Blood Culture - Preliminary No growth in 48 hours. 10/11/21 13:36 Blood Culture (Wb) - Anticubital Left Blood Culture - Preliminary No growth in 48 hours. 10/12/21 01:45 Urine, Clean Catch Legionella Antigen - Final 10/12/21 01:45 Urine, Clean Catch Streptococcus pneumoniae Antigen (M - Final 10/11/21 20:08 Mucosa - Nose Respiratory Panel (PCR) - Final 10/11/21 13:30 Nasal Secretion SARS-CoV-2 Antigen (Rapid) - Final Physical Exam Const alert and oriented x3 Constitutional Narrative: On Airvo General Appearance: cooperative; Negative for in distress HEENT normocephalic, head/scalp atraumatic and moist oral mucous membranes Eyes PERRL, EOMs intact bilaterally and conjunctivae normal Neck full ROM Chest inspection of chest normal Chest: symmetrical chest wall rise; Negative for crepitus Resp Auscultation: diminished lung sounds; Negative for rales, rhonchi or wheezes Cardio regular rate, regular rhythm, S1 normal heart sound, S2 normal heart sound, no murmurs, no rub and no gallops GI normal to inspection, nondistended, normoactive bowel sounds Extremity no clubbing, cyanosis or edema Skin no rashes or lesions noted Neuro oriented x3, CN's II-XII intact bilaterally and moves all extremities Psych cooperative and affect normal Appearance: well kempt Charges/Coding Visit Charges Inpatient E&M: 53500 Subs Hosp L3
[2021-10-15 17:16] LABS: Bedside Glucose 234 mg/dL (70-110)
[2021-10-15] MEDS: Enoxaparin 80 MG/0.8 ML Syringe 70 MG SC (18:43)
[2021-10-15] MEDS: Furosemide 20 MG Tablet PO (18:43)
[2021-10-15 22:05] LABS: Bedside Glucose 218 mg/dL (70-110)
[2021-10-16] VITALS (23 sets, daily range): BP systolic 117–169; BP diastolic 55–84; PULSE 51–83; RESP 19–32; TEMP 36.6; O2SAT 90–99
[2021-10-16] MEDS: hydrALAZINE 20 MG/ML Vial 10 MG IV (03:15)
[2021-10-16] MEDS: 0.9% Saline Lock 10 ML Syringe IV ×2 (03:15→08:49)
[2021-10-16 06:41] LABS: Bedside Glucose 115 mg/dL (70-110)
--- NOTE | 2021-10-16 07:09 | PCM.PN.HOSP ---
Subjective Subjective Patient overnight with no acute events however patient did intermittently take off her supplementation and would desat into the 70s unless it was replaced. Several times patient was reeducated that this needed remain in place. Patient did successfully decrease during the day on her airvo requirements from 73% to 63%. Patient denies fevers, chills, nausea, emesis, abdominal pain, chest pain or any worsening dyspnea. Objective Data Objective Data Vital Signs: Vital Signs Temp Pulse Resp BP Pulse Ox 97.9 F 61 28 H 131/55 H 95 10/16/21 03:10 10/16/21 06:36 10/16/21 05:04 10/16/21 04:00 10/16/21 05:04 Oxygen Flow Rate (L/min) 60 Oxygen Delivery Method Airvo Weight: 153 lb 0.013 oz Body Mass Index (BMI) 26.7 Intake & Output: Intake and Output for Last 24 Hours 10/14/21 10/15/21 10/16/21 23:59 23:59 23:59 Intake Total 1056.84 / 1056.84 1460.39 / 1520.39 60 / 60 Output Total 1700 / 1700 1100 / 1250 150 / 150 Balance -643.16 / -643.16 360.39 / 270.39 -90 / -90 Lab / Micro Data Result Diagrams: 10/16/21 06:58 10/16/21 06:58 Labs: Laboratory Results - last 24 hr 10/15/21 07:24: WBC 12.5 H, RBC 4.29, Hgb 13.2, Hct 38.2, MCV 89.0, MCH 30.8, MCHC 34.6, RDW Std Deviation 41.0, RDW Coeff of Marguerite 12.6, Plt Count 295, MPV 9.9, Immature Gran % (Auto) 3.700 H, Neut % (Auto) 82.5 H, Lymph % (Auto) 9.7 L, [place] % (Auto) 3.7, Eos % (Auto) 0.2, Baso % (Auto) 0.2, Absolute Neuts (auto) 10.3 H, Absolute Lymphs (auto) 1.22, Nucleated RBC % 0 10/15/21 07:24: Sodium 140, Potassium 3.6, Chloride 104, Carbon Dioxide 29.0, Anion Gap 7, BUN 16, Creatinine 0.62, Estim Creat Clear Calc 32.53, Est GFR (MDRD) Af Amer 117, Est GFR (MDRD) Non-Af 97, BUN/Creatinine Ratio 25.8 H, Glucose 122 H, Calcium 8.5, Total Bilirubin 0.40, AST 70 H, ALT 61 H, Alkaline Phosphatase 64, Total Protein 6.5, Albumin 2.3 L, Globulin 4.2, Albumin/Globulin Ratio 0.5 L 10/15/21 07:24: APTT 69.1 H 10/15/21 11:16: POC Glucose 146 H 10/15/21 13:40: APTT 56.4 H 10/15/21 16:43: POC Glucose 234 H 10/15/21 21:53: POC Glucose 218 H 10/16/21 06:33: POC Glucose 115 H Micro: Microbiology 10/11/21 13:45 Blood Culture (Wb) - Anticubital Right Blood Culture - Preliminary No growth in 48 hours. 10/11/21 13:36 Blood Culture (Wb) - Anticubital Left Blood Culture - Preliminary No growth in 48 hours. 10/12/21 01:45 Urine, Clean Catch Legionella Antigen - Final 10/12/21 01:45 Urine, Clean Catch Streptococcus pneumoniae Antigen (M - Final 10/11/21 20:08 Mucosa - Nose Respiratory Panel (PCR) - Final 10/11/21 13:30 Nasal Secretion SARS-CoV-2 Antigen (Rapid) - Final Physical Exam Narrative Physical Examination: General: Awake, alert, oriented x 3 and cooperative, seated upright in the PCU bed, fatigued, still airvo but FiO2 decreasing, less accessory muscle usage and decreased respiratory rate from prior. Skin: Normal color, normal turgor, no icterus, no cyanosis. HEENT: AT/NC, EOMI, PERRLA, mildly dry MM, air Vo in place. Lungs: Diffusely diminished, greater bases, improving respiratory evaluation with decreased respiratory rate and lessened accessory muscle usage, still maintained on air Vo, no rales, ronchi or wheezing. Heart: Regular rate with regular rhythm; no gallop, rub audible. Abdomen: Soft, overweight, NTTP, ND, normalized bowel sounds. Extremities: No cyanosis, clubbing, or edema. Neurological: Patient awake, alert, oriented as noted, cognitive function intact; pupils equally reactive to light and accommodation, cranial nerves II-XII grossly normal, moving all 4 extremities, no focal deficits, strength remains severely global decrease secondary to acute presentation. Psychiatric: Affect appears fatigued, mildly irritable, no acute evidence of depressive or anxiety feelings. Assessment & Plan Assessment/Plan (1) Acute hypoxemic respiratory failure: (2) COVID-19: (3) Bilateral pulmonary embolism: PLAN: The patient is an 86 y/o F w/ PMHx: HTN, Hypothyroidism who presents to the [facility] ED on 10/11/21 with history of ongoing fatigue, malaise, dyspnea with cough and rhinorrhea starting over the last 2 weeks as well as a very throbbing constant frontal headache, progressively worsening prompting eventual ED presentation. #1. Acute Hypoxic Respiratory Failure secondary to Acute Bilateral Pneumonia secondary to Acute Viral Syndrome, COVID-19: Patient admitted to the PCU, maintained on on COVID precautions with eventual positive COVID PCR results, maintained on oxygen with wean as tolerated to room air but do suspect patient will likely eventually need air Vo and/or BiPAP, PRN albuterol, HOB, IS parameters w/ pending sputum cultures, respiratory viral panel negative, urine antigens, ferritin 809, LDH 381, TCK 64, CRP 156, BNP 306, procalcitonin 0.15, cycled cardiac enzymes given strain potential which remained unremarkable, continue supportive care, closely monitor for worsening status for ARDS and multiorgan failure, initiated and continued on IV decadron x 10 doses, given presentation timeline not remdesivir candidate, 10/12/2021 evening transition to air Vo with infectious disease consulted and initiation of barcitinib. Pulmonary medicine also consulted and following. Despite frequent discussions about aggressive incentive spirometry, pulmonary toileting and positional changes including proning patient has not been doing these, again encouraged her this a.m. infectious disease consulted and following, patient maintained on Barcitinib regimen initiated on 10/12/2021 with planned 14 doses. Patient has vacillated between air Vo and occasional BiPAP needs however has been unable to tolerate. Fortunately 10/16/2021 airvo requirements slightly decreased, will continue to closely monitor. #2. Acute BL Pulmonary Embolism with suspected Cardiac strain secondary to #1 (BL PNA COVID): EKG without acute findings, cardiac serial enzymes unremarkable, maintain on telemetry as noted, once quarantine complete will need to obtain ECHO, BNP mildly elevated 306. Initially given presentation maintained on heparin drip, to avoid ongoing excessive labs transitioned patient to therapeutic Lovenox. #3. Lactic acidosis: Lactic acid 3.8, likely secondary to acute presentation #1 secondary to hypoxemia, repeat 2.7, improved. #4. Hypokalemia: Admission K+ 3.1, magnesium 2.1, supplementation given, 10/16/2021 potassium 3.8. #5. Hyperglycemia with new onset diabetes mellitus type II: Admission glucose 171, hemoglobin A1c obtained and noted to be 7.0%, transition to ADA diet with Accu-Cheks with insulin sliding scale. Monitor for continued hyperglycemia especially in the setting of steroid usage and adjust sliding scale as needed versus potential addition of low-dose twice daily long-acting agent if necessary pending trending. #6. Hypertension: Notes she discontinued her atenolol secondary to lightheadedness symptoms, BPs remain elevated above goal, given trending patient initiated on low-dose lisinopril with BP improvement, continue as needed IV hydralazine. #7. Hypothyroidism: Continue home synthroid regimen. #8. DVT prophylaxis: SCDs, initially upon presentation on heparin drip transition to therapeutic Lovenox. #9. CODE status: Patient does not have healthcare prep turning or living will in place. DNR-CCA with allowance of intubation. If patient does transition to BiPAP will transfer to the ICU. Charges/Coding Visit Charges Inpatient E&M: 51963 Subs Hosp L2
[2021-10-16 07:19] LABS: Absolute Lymphocyte Count 1.24 X10^3/uL (0.83-4.51); Absolute Neutrophil Count 9.9 X10^3/uL (2.0-7.7); Basophil# 0.03 X10^3/uL; Basophil% 0.2 % (0-1); Eosinophil# 0.02 X10^3/uL; Eosinophils% 0.2 % (0-5); Hematocrit 38.2 % (37-47); Hemoglobin 13.1 g/dL (12.0-15.0); Lymphocyte # 1.24 X10^3/ul (0.83-4.51); Lymphocyte % 10.2 % (19-41); Mean Corp Hgb Conc 34.3 g/dL (32-36); Mean Corpuscular Hgb 30.5 pg (27.0-32.0); Mean Corpuscular Volume 88.8 fL (81-99); Mean Platelet Vol. 9.9 fl (6.2-12.0); Monocyte# 0.45 X10^3/uL; Monocyte% 3.7 % (0-10); NRBC Flagged by Analyzer 0 % (0-5); Neutrophil # 9.91 X10^3/uL (2.7-7.7); Neutrophil % 81.3 % (47-70); Platelet Count 305 K/mm3 (150-450); RBC Distribution Width CV 12.7 % (11.6-14.6); RBC Distribution Width SD 41.2 fl (35.1-43.9); White Blood Count 12.2 K/mm3 (4.4-11.0)
[2021-10-16 07:39] LABS: ALB/GLOB Ratio 0.5 RATIO (0.9-2.4); AST(SGOT) 61 U/L (15-37); Alanine Aminotransfer ALT/SGPT 69 U/L (13-56); Albumin, Serum 2.3 g/dL (3.2-5.0); Alkaline Phosphatase 65 U/L (45-117); Anion Gap 7 (5-15); BUN 20 mg/dL (7-18); BUN/Creat Ratio 29.9 RATIO (10-20); Calcium,Total 8.2 mg/dL (8.5-10.1); Chloride 103 mmol/L (98-107); Creatinine, Serum 0.67 mg/dL (0.55-1.02); EST Glomerular Filtration Rate 89 mL/min (>60); Est Glom Filt Rate - Afr Amer 108 mL/min (>60); Estimated Creatinine Clearance 32.53 ml/min; Globulin 4.2 g/dL (2.2-4.2); Glucose 112 mg/dL (74-106); Potassium 3.8 mmol/L (3.5-5.1); Protein, Total 6.5 g/dL (6.4-8.2); Sodium Level 140 mmol/L (136-145)
[2021-10-16] MEDS: BENZOCAINE/MENTHOL 1 LOZENGE MUCOUS MEM (08:48)
[2021-10-16] MEDS: Enoxaparin 80 MG/0.8 ML Syringe 70 MG SC ×2 (08:50→20:27)
[2021-10-16] MEDS: dexAMETHasone 10 MG/ML Vial 6 MG IV (08:50)
[2021-10-16] MEDS: guaiFENesin 1,200 MG Tablet 1200 MG PO ×2 (08:51→20:24)
[2021-10-16] MEDS: Lisinopril 5 MG Tablet PO (08:51)
[2021-10-16] MEDS: Levothyroxine 75 MCG Tablet PO (08:51)
[2021-10-16] MEDS: Famotidine 20 MG Tablet PO (08:51)
[2021-10-16] MEDS: Insulin Lispro 100 UNIT/ML INSULN.PEN SC ×3 (10:49→20:25)
[2021-10-16 11:01] LABS: Bedside Glucose 205 mg/dL (70-110)
--- NOTE | 2021-10-16 14:43 | PN.CC_ITS ---
Assessment & Plan Assessment/Plan (1) Acute hypoxemic respiratory failure: (2) COVID-19: (3) Bilateral pulmonary embolism: PLAN: RECOMMENDATIONS: 1. Continue to wean FiO2 to maintain oxygen saturations at or above 90%. 2. Continue Decadron and baricitinib to complete treatment courses. 3. Continue therapeutic Lovenox. 4. Encourage incentive spirometer use and mobilize patient as tolerated. Prone positioning was encouraged. 5. Diuretics, as needed, to maintain euvolemic state. IMPRESSIONS: 1. Acute hypoxic respiratory failure secondary to COVID-19 with bilateral PE The patient presented to the hospital with Covid 19 with symptoms beginning around October 01. CTA chest did reveal evidence for pulmonary emboli. Therefore, the patient was placed on therapeutic Lovenox and initiated on Decadron and baricitinib. The patient was outside of the window for remdesivir. Plan to continue to wean FiO2 to maintain oxygen saturations at or above 90%. Encourage incentive spirometer use and mobilize patient as tolerated. IV diuretic therapy can be utilized as needed to maintain euvolemic state. 2. Hypothyroidism/advanced age/hypertension/unvaccinated status/poor primary care follow-up Complicates care, management, recovery and prognosis. Okay to continue with baseline medications. This note was generated with [employer] dictation software. It may contain incorrect words, spelling, and punctuation that were not noted in checking the note before signing. Subjective Subjective The patient was seen and examined at the bedside this morning. Events from the last 24 hours have been reviewed. The patient is currently afebrile, hemodynamically stable and maintaining appropriate oxygen saturations on Airvo heated high flow with an FiO2 requirement of 55% and flow rate of 50 L/min. The patient is currently documented to be overall net +1.8 L for the hospitalization. She remains on Decadron, baricitinib and Lovenox twice daily. Renal function is within normal limits. Objective Data Objective Data The patient's most recent lab work, culture data and imaging studies have all been personally reviewed. Coronavirus PCR was positive on October 11. Vital Signs: Vital Signs Temp Pulse Resp BP Pulse Ox 97.9 F 71 32 H 139/84 H 96 10/16/21 12:00 10/16/21 13:47 10/16/21 13:47 10/16/21 12:00 10/16/21 14:12 Oxygen Flow Rate (L/min) 50 Oxygen Delivery Method Airvo Weight: 69.4 kg Body Mass Index (BMI) 26.7 Intake & Output: Intake and Output for Last 24 Hours 10/14/21 10/15/21 10/16/21 23:59 23:59 23:59 Intake Total 1056.84 / 1056.84 1460.39 / 1520.39 460 / 460 Output Total 1700 / 1700 1100 / 1250 450 / 450 Balance -643.16 / -643.16 360.39 / 270.39 Lab / Micro Data Attestation: I reviewed the patient's lab results. Result Diagrams: 10/17/21 07:14 10/17/21 07:14 Labs: Laboratory Results - last 24 hr 10/15/21 16:43: POC Glucose 234 H 10/15/21 21:53: POC Glucose 218 H 10/16/21 06:33: POC Glucose 115 H 10/16/21 06:58: WBC 12.2 H, RBC 4.30, Hgb 13.1, Hct 38.2, MCV 88.8, MCH 30.5, MCHC 34.3, RDW Std Deviation 41.2, RDW Coeff of Marguerite 12.7, Plt Count 305, MPV 9.9, Immature Gran % (Auto) 4.400 H, Neut % (Auto) 81.3 H, Lymph % (Auto) 10.2 L , [place] % (Auto) 3.7, Eos % (Auto) 0.2, Baso % (Auto) 0.2, Absolute Neuts (auto) 9.9 H, Absolute Lymphs (auto) 1.24, Nucleated RBC % 0 10/16/21 06:58: Sodium 140, Potassium 3.8, Chloride 103, Carbon Dioxide 30.0, Anion Gap 7, BUN 20 H, Creatinine 0.67, Estim Creat Clear Calc 32.53, Est GFR (MDRD) Af Amer 108, Est GFR (MDRD) Non-Af 89, BUN/Creatinine Ratio 29.9 H, Glucose 112 H, Calcium 8.2 L, Total Bilirubin 0.40, AST 61 H, ALT 69 H, Alkaline Phosphatase 65, Total Protein 6.5, Albumin 2.3 L, Globulin 4.2, Albumin/Globulin Ratio 0.5 L 10/16/21 10:47: POC Glucose 205 H Micro: Microbiology 10/11/21 13:36 Blood Culture (Wb) - Anticubital Left Blood Culture - Final No growth in 5 days. 10/11/21 13:45 Blood Culture (Wb) - Anticubital Right Blood Culture - Final No growth in 5 days. 10/12/21 01:45 Urine, Clean Catch Legionella Antigen - Final 10/12/21 01:45 Urine, Clean Catch Streptococcus pneumoniae Antigen (M - Final 10/11/21 20:08 Mucosa - Nose Respiratory Panel (PCR) - Final 10/11/21 13:30 Nasal Secretion SARS-CoV-2 Antigen (Rapid) - Final Physical Exam Const alert and no apparent distress General Appearance: cooperative HEENT normocephalic, head/scalp atraumatic and moist oral mucous membranes Eyes PERRL, EOMs intact bilaterally and conjunctivae normal Neck supple General: trachea midline Chest inspection of chest normal Resp normal respiratory effort Auscultation: diminished lung sounds Cardio regular rate and regular rhythm GI normal to inspection, nondistended, normoactive bowel sounds Extremity no clubbing, cyanosis or edema Skin no rashes or lesions noted Neuro moves all extremities and no focal motor deficits Psych cooperative and affect normal Charges/Coding Visit Charges Inpatient E&M: 19694 Subs Hosp L2
[2021-10-16 16:41] LABS: Bedside Glucose 289 mg/dL (70-110)
[2021-10-16 20:36] LABS: Bedside Glucose 289 mg/dL (70-110)
[2021-10-17] VITALS (19 sets, daily range): BP systolic 121–161; BP diastolic 42–82; PULSE 52–76; RESP 20–30; TEMP 36.4–36.8; O2SAT 90–99
--- NOTE | 2021-10-17 06:39 | PCM.PN.HOSP ---
Subjective Subjective Patient with no acute events overnight per self and per nursing report. Patient respiratory status did improve overnight with decrease on the air Vo to 55%. Patient this morning has brushed her hair and is less disheveled than previously, seated upright and alert and notes she is feeling improved. She does report in feeling improved although she states she did not feel significantly worse prior. Again discussed importance of continue incentive spirometry and activity as well as proning. Patient denies fevers, chills, nausea, emesis, abdominal pain, chest pain. Objective Data Objective Data Vital Signs: Vital Signs Temp Pulse Resp BP Pulse Ox 98.2 F 52 L 27 H 161/76 H 97 10/17/21 04:00 10/17/21 04:00 10/17/21 04:00 10/17/21 04:00 10/17/21 04:00 Oxygen Flow Rate (L/min) 50 Oxygen Delivery Method Airvo Weight: 155 lb 3.287 oz Body Mass Index (BMI) 26.7 Intake & Output: Intake and Output for Last 24 Hours 10/15/21 10/16/21 10/17/21 23:59 23:59 23:59 Intake Total 1460.39 / 1520.39 920 / 920 0 / 0 Output Total 1100 / 1250 650 / 650 Balance 360.39 / 270.39 270 / 270 0 / 0 Lab / Micro Data Result Diagrams: 10/17/21 07:14 10/17/21 07:14 Labs: Laboratory Results - last 24 hr 10/16/21 06:33: POC Glucose 115 H 10/16/21 06:58: WBC 12.2 H, RBC 4.30, Hgb 13.1, Hct 38.2, MCV 88.8, MCH 30.5, MCHC 34.3, RDW Std Deviation 41.2, RDW Coeff of Marguerite 12.7, Plt Count 305, MPV 9.9, Immature Gran % (Auto) 4.400 H, Neut % (Auto) 81.3 H, Lymph % (Auto) 10.2 L, [place] % (Auto) 3.7, Eos % (Auto) 0.2, Baso % (Auto) 0.2, Absolute Neuts (auto) 9.9 H, Absolute Lymphs (auto) 1.24, Nucleated RBC % 0 10/16/21 06:58: Sodium 140, Potassium 3.8, Chloride 103, Carbon Dioxide 30.0, Anion Gap 7, BUN 20 H, Creatinine 0.67, Estim Creat Clear Calc 32.53, Est GFR (MDRD) Af Amer 108, Est GFR (MDRD) Non-Af 89, BUN/Creatinine Ratio 29.9 H, Glucose 112 H, Calcium 8.2 L, Total Bilirubin 0.40, AST 61 H, ALT 69 H, Alkaline Phosphatase 65, Total Protein 6.5, Albumin 2.3 L, Globulin 4.2, Albumin/Globulin Ratio 0.5 L 10/16/21 10:47: POC Glucose 205 H 10/16/21 16:16: POC Glucose 289 H 10/16/21 20:22: POC Glucose 289 H Micro: Microbiology 10/11/21 13:36 Blood Culture (Wb) - Anticubital Left Blood Culture - Final No growth in 5 days. 10/11/21 13:45 Blood Culture (Wb) - Anticubital Right Blood Culture - Final No growth in 5 days. 10/12/21 01:45 Urine, Clean Catch Legionella Antigen - Final 10/12/21 01:45 Urine, Clean Catch Streptococcus pneumoniae Antigen (M - Final 10/11/21 20:08 Mucosa - Nose Respiratory Panel (PCR) - Final 10/11/21 13:30 Nasal Secretion SARS-CoV-2 Antigen (Rapid) - Final Physical Exam Narrative Physical Examination: General: Awake, alert, oriented x 3 and cooperative, seated upright in the PCU bed, significantly improved appearance, respiratory status improved, currently on air Vo. Skin: Normal color, normal turgor, no icterus, no cyanosis. HEENT: AT/NC, EOMI, PERRLA, mildly dry MM, air Vo in place. Lungs: Remains diffusely diminished, greater bases, improved effort, less in distress, maintained on air Vo, no rales, ronchi or wheezing. Heart: Regular rate with regular rhythm; no gallop, rub audible. Abdomen: Soft, overweight, NTTP, ND, normal bowel sounds. Extremities: No cyanosis, clubbing, or edema. Neurological: Patient awake, alert, oriented as noted, cognitive function intact; pupils equally reactive to light and accommodation, cranial nerves II-XII grossly normal, moving all 4 extremities, no focal deficits, strength improving, moderately to severely global decrease secondary to acute presentation. Psychiatric: Affect appears less fatigued, more interactive, no acute evidence of depressive or anxiety feelings. Assessment & Plan Assessment/Plan (1) Acute hypoxemic respiratory failure: (2) COVID-19: (3) Bilateral pulmonary embolism: PLAN: The patient is an 86 y/o F w/ PMHx: HTN, Hypothyroidism who presents to the [facility] ED on 10/11/21 with history of ongoing fatigue, malaise, dyspnea with cough and rhinorrhea starting over the last 2 weeks as well as a very throbbing constant frontal headache, progressively worsening prompting eventual ED presentation. #1. Acute Hypoxic Respiratory Failure secondary to Acute Bilateral Pneumonia secondary to Acute Viral Syndrome, COVID-19: Patient admitted to the PCU, maintained on on COVID precautions with eventual positive COVID PCR results, maintained on oxygen with wean as tolerated to room air but do suspect patient will likely eventually need air Vo and/or BiPAP, PRN albuterol, HOB, IS parameters w/ pending sputum cultures, respiratory viral panel negative, urine antigens, ferritin 809, LDH 381, TCK 64, CRP 156, BNP 306, procalcitonin 0.15, cycled cardiac enzymes given strain potential which remained unremarkable, continue supportive care, closely monitor for worsening status for ARDS and multiorgan failure, initiated and continued on IV decadron x 10 doses, given presentation timeline not remdesivir candidate, 10/12/2021 evening transition to air Vo with infectious disease consulted and initiation of barcitinib. Pulmonary medicine also consulted and following. Despite frequent discussions about aggressive incentive spirometry, pulmonary toileting and positional changes including proning patient has not been doing these, again encouraged her this a.m. infectious disease consulted and following, patient maintained on Barcitinib regimen initiated on 10/12/2021 with planned 14 doses. Patient with continued air Vo usage, 10/17/2021 significantly improving, continue strongly to encourage incentive spirometry and proning. #2. Acute BL Pulmonary Embolism with suspected Cardiac strain secondary to #1 (BL PNA COVID): EKG without acute findings, cardiac serial enzymes unremarkable, maintain on telemetry as noted, once quarantine complete will need to obtain ECHO, BNP mildly elevated 306. Initially given presentation maintained on heparin drip, to avoid ongoing excessive labs transitioned patient to therapeutic Lovenox. #3. Lactic acidosis: Lactic acid 3.8, likely secondary to acute presentation #1 secondary to hypoxemia, repeat 2.7, improved. #4. Hypokalemia: Admission K+ 3.1, magnesium 2.1, supplementation given, 10/17/2021 potassium 4.0. #5. Hyperglycemia with new onset diabetes mellitus type II: Admission glucose 171, hemoglobin A1c obtained and noted to be 7.0%, transition to ADA diet with Accu-Cheks with insulin sliding scale. Monitor for continued hyperglycemia especially in the setting of steroid usage and adjust sliding scale as needed versus potential addition of low-dose twice daily long-acting agent if necessary pending trending. #6. Hypertension: Notes she discontinued her atenolol secondary to lightheadedness symptoms, BPs during admission had remained elevated above goal, given trending patient initiated on low-dose lisinopril with BP improvement; however, 10/17/2021 remains above goal therefore will increase to 20 mg daily, continue as needed IV hydralazine. If remains elevated may consider second agent addition. #7. Hypothyroidism: Continue home synthroid regimen. #8. DVT prophylaxis: SCDs, initially upon presentation on heparin drip transition to therapeutic Lovenox. #9. CODE status: Patient does not have healthcare prep turning or living will in place. DNR-CCA with allowance of intubation. If patient does transition to BiPAP will transfer to the ICU. Charges/Coding Visit Charges Inpatient E&M: 33853 Subs Hosp L2
[2021-10-17 06:40] LABS: Bedside Glucose 124 mg/dL (70-110)
[2021-10-17 07:36] LABS: Hematocrit 38.4 % (37-47); Hemoglobin 13.2 g/dL (12.0-15.0); Mean Corp Hgb Conc 34.4 g/dL (32-36); Mean Corpuscular Hgb 30.8 pg (27.0-32.0); Mean Corpuscular Volume 89.7 fL (81-99); Mean Platelet Vol. 9.7 fl (6.2-12.0); POSITIVE COUNT YES; POSITIVE MORPHOLOGY YES; Platelet Count 344 K/mm3 (150-450); RBC Distribution Width CV 12.8 % (11.6-14.6); RBC Distribution Width SD 42.1 fl (35.1-43.9); Red Blood Count 4.28 M/mm3 (4.2-5.4); White Blood Count 16.9 K/mm3 (4.4-11.0)
[2021-10-17 08:03] LABS: ALB/GLOB Ratio 0.6 RATIO (0.9-2.4); AST(SGOT) 49 U/L (15-37); Alanine Aminotransfer ALT/SGPT 69 U/L (13-56); Albumin, Serum 2.3 g/dL (3.2-5.0); Alkaline Phosphatase 64 U/L (45-117); Anion Gap 6 (5-15); BUN 25 mg/dL (7-18); BUN/Creat Ratio 36.6 RATIO (10-20); Calcium,Total 8.5 mg/dL (8.5-10.1); Chloride 105 mmol/L (98-107); Creatinine, Serum 0.68 mg/dL (0.55-1.02); EST Glomerular Filtration Rate 87 mL/min (>60); Est Glom Filt Rate - Afr Amer 105 mL/min (>60); Estimated Creatinine Clearance 32.53 ml/min; Globulin 4.1 g/dL (2.2-4.2); Glucose 117 mg/dL (74-106); Protein, Total 6.4 g/dL (6.4-8.2); Sodium Level 139 mmol/L (136-145)
[2021-10-17 08:07] LABS: Differential Indicated MANUAL DIFF
--- NOTE | 2021-10-17 08:40 | PCM.PN.INT ---
Assessment & Plan Assessment/Plan (1) Acute hypoxemic respiratory failure: (2) COVID-19: (3) Bilateral pulmonary embolism: PLAN: RECOMMENDATIONS: 1. Continue to wean FiO2 to maintain oxygen saturations at or above 90%. 2. Continue Decadron and baricitinib to complete treatment courses. 3. Continue therapeutic Lovenox. 4. Encourage incentive spirometer use and mobilize patient as tolerated. Prone positioning was encouraged. 5. Diuretics, as needed, to maintain euvolemic state. IMPRESSIONS: 1. Acute hypoxic respiratory failure secondary to COVID-19 with bilateral PE The patient presented to the hospital with Covid 19 with symptoms beginning around October 01. CTA chest did reveal evidence for pulmonary emboli. Therefore, the patient was placed on therapeutic Lovenox and initiated on Decadron and baricitinib. The patient was outside of the window for remdesivir. Plan to continue to wean FiO2 to maintain oxygen saturations at or above 90%. Encourage incentive spirometer use and mobilize patient as tolerated. IV diuretic therapy can be utilized as needed to maintain euvolemic state. 2. Hypothyroidism/advanced age/hypertension/unvaccinated status/poor primary care follow-up Complicates care, management, recovery and prognosis. Okay to continue with baseline medications. This note was generated with [employer] dictation software. It may contain incorrect words, spelling, and punctuation that were not noted in checking the note before signing. Subjective Subjective The patient was seen and examined at the bedside this morning. Events from the last 24 hours have been reviewed. The patient is currently afebrile, hemodynamically stable and maintaining appropriate oxygen saturations on Airvo heated high flow with an FiO2 requirement of 50% and flow rate of 50 L/min. The patient is currently documented to be overall net +2 L for the hospitalization. She remains on Decadron, baricitinib and Lovenox twice daily. Renal function is within normal limits. Objective Data Objective Data The patient's most recent lab work, culture data and imaging studies have all been personally reviewed. Coronavirus PCR was positive on October 11. Vital Signs: Vital Signs Temp Pulse Resp BP Pulse Ox 97.9 F 68 21 H 133/42 H 92 10/17/21 06:00 10/17/21 06:33 10/17/21 06:00 10/17/21 06:00 10/17/21 06:00 Oxygen Flow Rate (L/min) 50 Oxygen Delivery Method Airvo Weight: 70.4 kg Body Mass Index (BMI) 26.7 Intake & Output: Intake and Output for Last 24 Hours 10/15/21 10/16/21 10/17/21 23:59 23:59 23:59 Intake Total 1460.39 / 1520.39 920 / 920 0 / 0 Output Total 1100 / 1250 650 / 650 Balance 360.39 / 270.39 270 / 270 0 / 0 Lab / Micro Data Attestation: I reviewed the patient's lab results. Result Diagrams: 10/17/21 07:14 10/17/21 07:14 Labs: Laboratory Results - last 24 hr 10/16/21 10:47: POC Glucose 205 H 10/16/21 16:16: POC Glucose 289 H 10/16/21 20:22: POC Glucose 289 H 10/17/21 06:32: POC Glucose 124 H 10/17/21 07:14: WBC 16.9 H, RBC 4.28, Hgb 13.2, Hct 38.4, MCV 89.7, MCH 30.8, MCHC 34.4, RDW Std Deviation 42.1, RDW Coeff of Marguerite 12.8, Plt Count 344, MPV 9.7, Neut % (Auto) Not Reportable 10/17/21 07:14: Sodium 139, Potassium 4.0, Chloride 105, Carbon Dioxide 28.0, Anion Gap 6, BUN 25 H, Creatinine 0.68, Estim Creat Clear Calc 32.53, Est GFR (MDRD) Af Amer 105, Est GFR (MDRD) Non-Af 87, BUN/Creatinine Ratio 36.6 H, Glucose 117 H, Calcium 8.5, Total Bilirubin 0.40, AST 49 H, ALT 69 H, Alkaline Phosphatase 64, Total Protein 6.4, Albumin 2.3 L, Globulin 4.1, Albumin/Globulin Ratio 0.6 L Micro: Microbiology 10/11/21 13:36 Blood Culture (Wb) - Anticubital Left Blood Culture - Final No growth in 5 days. 10/11/21 13:45 Blood Culture (Wb) - Anticubital Right Blood Culture - Final No growth in 5 days. 10/12/21 01:45 Urine, Clean Catch Legionella Antigen - Final 10/12/21 01:45 Urine, Clean Catch Streptococcus pneumoniae Antigen (M - Final 10/11/21 20:08 Mucosa - Nose Respiratory Panel (PCR) - Final 10/11/21 13:30 Nasal Secretion SARS-CoV-2 Antigen (Rapid) - Final Physical Exam Const alert and no apparent distress General Appearance: cooperative HEENT normocephalic, head/scalp atraumatic and moist oral mucous membranes Eyes PERRL, EOMs intact bilaterally and conjunctivae normal Neck supple General: trachea midline Chest inspection of chest normal Resp normal respiratory effort Auscultation: diminished lung sounds Cardio regular rate and regular rhythm GI normal to inspection, nondistended, normoactive bowel sounds Extremity no clubbing, cyanosis or edema Skin no rashes or lesions noted Neuro moves all extremities and no focal motor deficits Psych cooperative and affect normal Charges/Coding Visit Charges Inpatient E&M: 06689 Subs Hosp L2
[2021-10-17] MEDS: 0.9% Saline Lock 10 ML Syringe IV (09:24)
[2021-10-17] MEDS: Famotidine 20 MG Tablet PO (09:26)
[2021-10-17] MEDS: BENZOCAINE/MENTHOL 1 LOZENGE MUCOUS MEM (09:26)
[2021-10-17] MEDS: Levothyroxine 75 MCG Tablet PO (09:26)
[2021-10-17] MEDS: NYSTATIN 500,000 UNIT/5 ML UDC 500000 UNIT PO ×4 (09:26→20:56)
[2021-10-17] MEDS: Lisinopril 10 MG Tablet PO (09:26)
[2021-10-17] MEDS: Enoxaparin 80 MG/0.8 ML Syringe 70 MG SC ×2 (09:27→20:56)
[2021-10-17] MEDS: dexAMETHasone 10 MG/ML Vial 6 MG IV (09:27)
[2021-10-17] MEDS: guaiFENesin 1,200 MG Tablet 1200 MG PO ×2 (09:33→20:56)
[2021-10-17 09:40] LABS: Lymphocyte 13 % (19-41); Metamyelocyte 1 % (0-1); Monocyte 4 % (0-10); Myelocyte 2 % (0-0); Neutrophil-Segmented 78 % (47-70); Platelet Estimate ADEQUATE (ADEQ); Promyelocyte 2 % (0-0); Red Cell Morphology NORM C+C NORMAL (NORM C&C); Total Cells Counted 100 (MANUAL DIFF)
[2021-10-17 09:41] LABS: Absolute Neutrophil Count 13.2 X10^3/uL (2.0-7.7)
[2021-10-17] MEDS: Insulin Lispro 100 UNIT/ML INSULN.PEN SC ×3 (11:10→20:56)
[2021-10-17 11:16] LABS: Bedside Glucose 200 mg/dL (70-110)
[2021-10-17 16:35] LABS: Bedside Glucose 332 mg/dL (70-110)
[2021-10-17] MEDS: Sodium Chloride 0.65% 1 SPRAY SPRAY.BTL 2 SPRAY NASAL (16:45)
--- NOTE | 2021-10-17 20:11 | PCS.PANDOC ---
PANDEMIC DOCUMENTATION INITIATED: Date: 07/01/2021 Time: 190
--- NOTE | 2021-10-17 20:32 | NURSING ---
RN went over educated with COVID and use of IS and lying prone. Patient is very reluctant to use Incentive Spirometer, states, she breaths fine on her own. RN once again went over what the Incentive Spirometer does and how it is very important to use. Patient verbalized understanding.
[2021-10-17 21:05] LABS: Bedside Glucose 255 mg/dL (70-110)
[2021-10-18] VITALS (13 sets, daily range): BP systolic 137–155; BP diastolic 56–74; PULSE 47–73; RESP 18; TEMP 36.2–36.9; O2SAT 92–97
[2021-10-18] MEDS: 0.9% Saline Lock 10 ML Syringe IV (06:27)
[2021-10-18 06:30] LABS: Bedside Glucose 162 mg/dL (70-110)
--- NOTE | 2021-10-18 06:31 | PN.HOSP_ITS ---
Subjective Subjective Patient overnight with continued significant improvement with decreased oxygen requirements now down to 8 L upon current evaluation, notes feeling improved, smiling and states she feels improved. Did discuss again and encourage vaccination when she is out of the acute phase and patient seems amenable. Patient denies fevers, chills, nausea, emesis, abdominal pain, chest pain. Objective Data Objective Data Vital Signs: Vital Signs Temp Pulse Resp BP Pulse Ox 97.8 F 52 L 18 150/74 H 96 10/18/21 06:23 10/18/21 06:23 10/18/21 06:23 10/18/21 06:23 10/18/21 06:23 Oxygen Flow Rate (L/min) 9 Oxygen Delivery Method Nasal Cannula Weight: 155 lb 3.287 oz Body Mass Index (BMI) 26.7 Intake & Output: Intake and Output for Last 24 Hours 10/16/21 10/17/21 10/18/21 23:59 23:59 23:59 Intake Total 920 / 920 1000 / 1000 Output Total 650 / 650 Balance 270 / 270 1000 / 1000 Lab / Micro Data Result Diagrams: 10/17/21 07:14 10/17/21 07:14 Labs: Laboratory Results - last 24 hr 10/17/21 06:32: POC Glucose 124 H 10/17/21 07:14: WBC 16.9 H, RBC 4.28, Hgb 13.2, Hct 38.4, MCV 89.7, MCH 30.8, MCHC 34.4, RDW Std Deviation 42.1, RDW Coeff of Marguerite 12.8, Plt Count 344, MPV 9.7, Neut % (Auto) Not Reportable, Absolute Neuts (auto) 13.2 H, Absolute Lymphs (auto) 2.20, Total Counted 100, Neutrophils % (Manual) 78 H, Lymphocytes % (Manual) 13 L, Monocytes % (Manual) 4, Metamyelocytes % 1, Myelocytes % 2 H, Promyelocytes % 2 H, Diff Path Review May , Platelet Estimate ADEQUATE, RBC Morphology NORM C+C 10/17/21 07:14: Sodium 139, Potassium 4.0, Chloride 105, Carbon Dioxide 28.0, Anion Gap 6, BUN 25 H, Creatinine 0.68, Estim Creat Clear Calc 32.53, Est GFR (MDRD) Af Amer 105, Est GFR (MDRD) Non-Af 87, BUN/Creatinine Ratio 36.6 H, Glucose 117 H, Calcium 8.5, Total Bilirubin 0.40, AST 49 H, ALT 69 H, Alkaline Phosphatase 64, Total Protein 6.4, Albumin 2.3 L, Globulin 4.1, Albumin/Globulin Ratio 0.6 L 10/17/21 11:10: POC Glucose 200 H 10/17/21 16:17: POC Glucose 332 H 10/17/21 20:51: POC Glucose 255 H 10/18/21 06:20: POC Glucose 162 H Micro: Microbiology 10/11/21 13:36 Blood Culture (Wb) - Anticubital Left Blood Culture - Final No growth in 5 days. 10/11/21 13:45 Blood Culture (Wb) - Anticubital Right Blood Culture - Final No growth in 5 days. 10/12/21 01:45 Urine, Clean Catch Legionella Antigen - Final 10/12/21 01:45 Urine, Clean Catch Streptococcus pneumoniae Antigen (M - Final 10/11/21 20:08 Mucosa - Nose Respiratory Panel (PCR) - Final 10/11/21 13:30 Nasal Secretion SARS-CoV-2 Antigen (Rapid) - Final Physical Exam Narrative Physical Examination: General: Awake, alert, oriented x 3 and cooperative, seated upright in the PCU bed, improved appearance, no evidence of any respiratory distress, transitioned off airvo to nasal cannula now. Skin: Normal color, normal turgor, no icterus, no cyanosis. HEENT: AT/NC, EOMI, PERRLA, MMM, transitioned off of airvo to nasal cannula now. Lungs: Improved air movement, still diminished, greater bases, effort normalizing, no rales, rhonchi or wheezing currently. Heart: Regular rate with regular rhythm; no gallop, rub audible. Abdomen: Soft, overweight, NTTP, ND, normal bowel sounds. Extremities: No cyanosis, clubbing, or edema. Neurological: Patient awake, alert, oriented as noted, cognitive function intact; pupils equally reactive to light and accommodation, cranial nerves II- XII grossly normal, moving all 4 extremities, no focal deficits, strength improving, moderately globally decreased secondary to acute presentation. Psychiatric: Affect appears improved, smiling, interactive, no acute evidence of depressive or anxiety feelings. Assessment & Plan Assessment/Plan (1) Acute hypoxemic respiratory failure: (2) COVID-19: (3) Bilateral pulmonary embolism: PLAN: The patient is an 86 y/o F w/ PMHx: HTN, Hypothyroidism who presents to the [facility] ED on 10/11/21 with history of ongoing fatigue, malaise, dyspnea with cough and rhinorrhea starting over the last 2 weeks as well as a very throbbing constant frontal headache, progressively worsening prompting eventual ED pr esentation. #1. Acute Hypoxic Respiratory Failure secondary to Acute Bilateral Pneumonia secondary to Acute Viral Syndrome, COVID-19: Patient admitted to the PCU, maintained on on COVID precautions with eventual positive COVID PCR results, maintained on oxygen with wean as tolerated to room air but do suspect patient will likely eventually need air Vo and/or BiPAP, PRN albuterol, HOB, IS leonard eters w/ pending sputum cultures, respiratory viral panel negative, urine antigens, ferritin 809, LDH 381, TCK 64, CRP 156, BNP 306, procalcitonin 0.15, cycled cardiac enzymes given strain potential which remained unremarkable, continue supportive care, closely monitor for worsening status for ARDS and multiorgan failure, initiated and continued on IV decadron x 10 doses, given presentation timeline not remdesivir candidate, 10/12/2021 evening transition to air Vo with infectious disease consulted and initiation of barcitinib. Pulmonary medicine also consulted and following. Despite frequent discussions about aggressive incentive spirometry, pulmonary toileting and positional changes including proning patient has not been doing these, again encouraged her this a.m. infectious disease consulted and following, patient maintained on Barcitinib regimen initiated on 10/12/2021 with planned 14 doses. 10/18/2021 significant improvement with de-escalation off of airvo to nasal cannula, curren tly down to 8 L. Patient preference for discharge to home, not amenable to skilled at this point. Plan 10/18/21 repeat evaluation and further continues to decrease her oxygen requirements and can maintain 6 L or less with activity than would be appropriate for discharge. Will be off quarantine 10/19/21. 10/18/21 transitioning to eliquis. #2. Acute BL Pulmonary Embolism with suspected Cardiac strain secondary to #1 (BL PNA COVID): EKG without acute findings, cardiac serial enzymes unremarkable, maintain on telemetry as noted, once quarantine complete will need to obtain ECHO, BNP mildly elevated 306. Initially given presentation maintained on heparin drip, to avoid ongoing excessive labs transitioned patient to therapeutic Lovenox. 10/18/21 will transition to eliquis with 1st dose this even ing with lovenox dosed this AM. #3. Lactic acidosis: Lactic acid 3.8, likely secondary to acute presentation #1 secondary to hypoxemia, repeat 2.7, improved. #4. Hypokalemia: Admission K+ 3.1, magnesium 2.1, supplementation given, 10/17/2021 potassium 4.0. 10/18/2021 lab holiday. #5. Hyperglycemia with new onset diabetes mellitus type II: Admission glucose 171, hemoglobin A1c obtained and noted to be 7.0%, transitioned to ADA diet with Accu-Cheks with insulin sliding scale. #6. Hypertension: Notes she discontinued her atenolol secondary to lightheadedness symptoms, BPs during admission had remained elevated above goal, given trending patient initiated on low-dose lisinopril with BP improvement; however, 10/17/2021 remained above goal therefore increased to 20 mg daily with improvement, continue as needed IV hydralazine. #7. Hypothyroidism: Continue home synthroid regimen. #8. DVT prophylaxis: SCDs, initially upon presentation on heparin drip->lovenox->10/18/21 transitioning to oral eliquis. #9. CODE status: Patient does not have healthcare power of contract administrative assistant or living will in place. DNR-CCA with allowance of intubation. Charges/Coding Visit Charges Inpatient E&M: 09054 Subs Hosp L2
[2021-10-18] MEDS: Enoxaparin 80 MG/0.8 ML Syringe 70 MG SC (09:29)
[2021-10-18] MEDS: Lisinopril 20 MG Tablet PO (09:30)
[2021-10-18] MEDS: Famotidine 20 MG Tablet PO (09:30)
[2021-10-18] MEDS: Levothyroxine 75 MCG Tablet PO (09:30)
[2021-10-18] MEDS: dexAMETHasone 10 MG/ML Vial 6 MG IV (09:31)
[2021-10-18] MEDS: guaiFENesin 1,200 MG Tablet 1200 MG PO ×2 (09:31→21:33)
[2021-10-18] MEDS: NYSTATIN 500,000 UNIT/5 ML UDC 500000 UNIT PO (09:31)
[2021-10-18] MEDS: Insulin Lispro 100 UNIT/ML INSULN.PEN SC ×3 (11:50→21:22)
[2021-10-18 11:55] LABS: Bedside Glucose 195 mg/dL (70-110)
--- NOTE | 2021-10-18 12:16 | CASEMGMT ---
Pt states no concerns with going home at time of discharge and states no need for any HHC or OP therapy. Pt states has family at home to assist and states no further questions/concerns/needs. Green sheet on chart for home oxygen. Milagros STOVALL CM
[2021-10-18 18:11] LABS: Bedside Glucose 260 mg/dL (70-110)
[2021-10-18] MEDS: APIXABAN 5 MG TABLET 10 MG PO (21:32)
[2021-10-18 21:36] LABS: Bedside Glucose 256 mg/dL (70-110)
[2021-10-19] VITALS (8 sets, daily range): BP systolic 133–154; BP diastolic 61–67; PULSE 53–62; RESP 17–18; TEMP 36.5–36.7; O2SAT 87–96
--- NOTE | 2021-10-19 06:39 | NURSING ---
This RN did a walking pulse ox check with this pt around the room this morning. Started on 3L, NC desats at 88% upon getting out of bed. 02 desats as low as 81% while walking on 6L NC. Assisted pt back to bed and increased 02 to 8L, NC to recover. Now at 93%; Pt denies pain, dizziness but got mildly SOB during the activity. Will pass this along dayshift RN.
[2021-10-19 07:00] LABS: Bedside Glucose 139 mg/dL (70-110)
[2021-10-19] MEDS: Lisinopril 20 MG Tablet PO (08:58)
[2021-10-19] MEDS: APIXABAN 5 MG TABLET 10 MG PO (08:59)
[2021-10-19] MEDS: Famotidine 20 MG Tablet PO (08:59)
[2021-10-19] MEDS: Levothyroxine 75 MCG Tablet PO (08:59)
[2021-10-19] MEDS: guaiFENesin 1,200 MG Tablet 1200 MG PO (08:59)
[2021-10-19] MEDS: Acetaminophen 325 MG Tablet 650 MG PO (09:00)
[2021-10-19] MEDS: 0.9% Saline Lock 10 ML Syringe IV (09:01)
[2021-10-19] MEDS: dexAMETHasone 10 MG/ML Vial 6 MG IV (09:01)
--- NOTE | 2021-10-19 12:48 | DS.PCM_ITS ---
Providers Date of Admission: 10/11/21 Primary Care Physician: Dr. Jessa Alberto MD Consultations 10/11/21 16:56 Consult: Infectious Disease Routine Consulting Provider: Shon Walters Reason for Consult: Resp failure, BL PNA, Susp COVID, on 15L currently on admit EMERGENT Consult: No Notified: Yes Date Notified: 10/11/21 Time Notified: 17:00 Method of Notification: Answering Service 10/12/21 06:33 Consult: Ceramic Worker / Pulmonary Medicine Routine Consulting Provider: [facility] Reason for Consult: Resp failure, BL PE, COVID PNA EMERGENT Consult: No Notified: Yes Date Notified: 10/12/21 Time Notified: 06:33 Method of Notification: cortext Reason For Visit: ACUTE RESPIRATORY FAILURE, SUSPECTED COVID PNA Diagnosis Discharge Diagnosis (1) Acute hypoxemic respiratory failure: Status: Acute Code(s): J96.01 - Acute respiratory failure with hypoxia (2) COVID-19: Status: Acute Code(s): U07.1 - COVID-19 (3) Bilateral pulmonary embolism: Status: Acute Code(s): I26.99 - Other pulmonary embolism without acute cor pulmonale Medications at Discharge Home Medications levothyroxine 75 mcg PO DAILY 05/17/17 apixaban [Eliquis] 5 mg PO BID #60 tab 10/19/21 apixaban [Eliquis] 10 mg PO BID #12 tab 10/19/21 dexamethasone [Decadron] 6 mg PO DAILY #2 tab 10/19/21 lisinopril 20 mg PO DAILY #30 tab 10/19/21 Hospital Course Procedures None Summary of Care Provided Minutes Spent on Discharge: 41 Hospital Course: Mrs. Contreras is an 86-year-old white female who presented to the emergency department [facility] on 10/11/2021 with a chief complaint of cough and dyspnea for approximately 2 weeks. She reported on presentation that she had an ongoing history of fatigue, malaise, dyspnea with cough, and rhinorrhea that started approximately 2 weeks prior to presentation. She also reported a constant throbbing frontal headache and progressively worsening shortness of breath that prompted ED evaluation. She reported being unvaccinated for Covid. Upon arrival to the emergency department her oxygen sa turations were 66% on room air and she was placed on supplemental oxygen. Her other vital signs were overall unimpressive. Her oxygen saturations did improve to 93% on 15 L nasal cannula. Her CBC on admission was unimpressive however a D-dimer was obtained and noted to be 10.5. A CTA was performed given her elevated D-dimer and bilateral pulmonary emboli were noted with some extension of the distal left main pulmonary artery and suspected early right heart strain. She also was found to have multifocal infiltrates consistent with Covid pneumonia. Her PCR for Covid was positive. She was initiated on Decadron and a heparin drip but was out of the window for remdesivir on presentation. She was initially admitted to the intensive care unit given her profound hypoxia and new diagnosis of PE. Her clinical status worsened some and therefore infectious disease was consulted for potential use of baricitinib which was initiated on 10/12/2021. She eventually had to be uptitrated to air Vo and remain on this until 11-04 at which time she was able to be weaned to heated high flow nasal cannula at 8 L. Through the day on 10/18/2021 she was able to be weaned to 3 L nasal cannula and maintain oxygen saturations from 93 to 97% and further weaned to 2 L was performed. She was transitioned off the heparin drip to Eliquis on 10/18/2021 at 10 mg p.o. twice daily for which she will need 7 total days of treatment and after which she can convert to 5 mg p.o. twice daily. We recommend dosing of 5 mg p.o. twice daily for at least 3 months given that this was a provoked DVT with relationship to her COVID-19 diagnosis. Prescriptions were written for both of these upon discharge as well as her Decadron of which she has 2 more days for completion. I tried to have a discussion on discharge recommendations with regard to incentive spirometer, Pep therapy, and medications as well as oxygen utilization with the patient prior to discharge but her answer to all of my recommendations was what ever. I did reiterate her the importance of continued oxygen therapy and anticoagulation but I do have high suspicion that there may be issues with noncompliance after discharge. Home oxygen recommendations were obtained her oxygen saturations were 87% at rest on room air and improved to 95% on 2 L nasal cannula at rest and 92% on 4 L nasal cannula with ambulation. Home oxygen was set up and made available to her but again I suspect that there may be some compliance issues at discharge based on my conversation with her early in the day. Her blood pressure also remained elevated throughout her course and she was discharged home on lisinopril 20 mg. She had been on atenolol but complained of lightheadedness and she discontinued this on her own prior to admission. She was also noted to be hyperglycemic and a hemoglobin A1c was obtained and noted to be 7.0. This does qualify her as being a new type II diabetic and we recommend follow-up with an ADA diet at discharge. We recommend follow-up with her PCP in 2 weeks and a green chain off bearer given her COVID-19 infection, bilateral pulmonary emboli with right heart strain and oxygen needs in 1 month. She was discharged home in s table condition on 10/19/2021. Discharge diagnoses: Acute hypoxic respiratory failure COVID-19 pneumonia Acute bilateral pulmonary emboli Lactic acidosis-resolved Hypokalemia-resolved Hypertension DM-2-new diagnosis with hemoglobin A1c of 7.0 Hypothyroidism Overweight Physical Exam Narrative Patient is very argumentative throughout our conversation. I tried to explain to her what the home requirements are with regards to oxygen and her response was whatever. She seemed very agitated with my presence and the fact that she was in the hospital. I did explain to her what the recommendations were at discharge with regards to her Covid and her response again was whatever. Const alert, oriented x3, no apparent distress and average body habitus Constitutional Narrative: Overweight elderly white female sitting up in bed watching television, nontoxic, appears comfortable General Appearance: cooperative, comfortable, well kempt and well developed Exam Limitations: no limitations Nutritional Appearance: overweight HEENT normocephalic, head/scalp atraumatic, hearing grossly normal bilaterally and moist oral mucous membranes HEENT Narrative: No thrush, Mallampati 2 Eyes PERRL, EOMs intact bilaterally and conjunctivae normal Eyes Narrative: No scleral icterus Neck no lymphadenopathy, supple and no JVD Resp normal respiratory effort Resp Narrative: Mildly diminished diffusely but no adventitious sounds Cardio regular rate, regular rhythm, S1 normal heart sound, S2 normal heart sound, no murmurs, no rub, no gallops, no clicks and no JVD GI normal to inspection, nondistended, normoactive bowel sounds, soft to palpation, non-tender and non-distended Extremity normal to inspection and no clubbing, cyanosis or edema Skin no rashes or lesions noted, no wounds, skin turgor normal and no jaundice Neuro oriented x3, CN's II-XII intact bilaterally, moves all extremities and no focal motor deficits Sensorium / Orientation: awake and alert Speech: speech normal Psych Psych Narrative: Patient very argumentative but no signs of depression or anxiety Weight / BMI Weight Weight: 70.4 kg Body Mass Index (BMI) 26.7 ABG / Lab / Microbiology Data Result Diagrams: 10/17/21 07:14 10/17/21 07:14 Laboratory: Laboratory Results - last 24 hr 10/18/21 16:58: POC Glucose 260 H 10/18/21 21:10: POC Glucose 256 H 10/19/21 06:27: POC Glucose 139 H Microbiology: Microbiology 10/11/21 13:36 Blood Culture (Wb) - Anticubital Left Blood Culture - Final No growth in 5 days. 10/11/21 13:45 Blood Culture (Wb) - Anticubital Right Blood Culture - Final No growth in 5 days. 10/12/21 01:45 Urine, Clean Catch Legionella Antigen - Final 10/12/21 01:45 Urine, Clean Catch Streptococcus pneumoniae Antigen (M - Final 10/11/21 20:08 Mucosa - Nose Respiratory Panel (PCR) - Final 10/11/21 13:30 Nasal Secretion SARS-CoV-2 Antigen (Rapid) - Final D/C Instructions Discharge Diet: Low fat / Low cholesterol and 1800 Calorie Control Diet Return to work on: 10/23/21 Meaningful Use Info Meaningful Use Diagnoses (Choose all that apply): None applicable Discharge Plan Admission Admit Date/Time: 10/11/21 14:59 Primary Reason for Your Visit: Shortness of breath/COVID-19 Attending Provider: Sandie Zavala Primary Care Provider: Jessa Alberto Consulting Providers: Shon Walters ; Kevin Auguste ; Mariano Aguirre ; Beatrice Acevedo [employer] Instructions Additional Instructions / Restrictions: 1. Please complete Decadron as prescribed 2. Please comply with home oxygen utilization at rest and with activity 3. Continue quarantine through 10/21/2021 -May return to work after your quarantine is complete 4. You were diagnosed with bilateral blood clots in your lungs as a complication of your COVID-19 infection and started on anticoagulation for this. Prescriptions were sent to your pharmacy and please take as prescribed. We would recommend a total of 3 months treatment. Noncompliance with this medication could result in . 5. Recommend follow-up with pulmonary medicine with regards to your lung blood clots and recent Covid infection--> please call Thursday for appointment as soon as available Discharge Orders/Prescriptions Prescriptions: New Eliquis 5 mg Tablet 10 mg PO BID Qty: 12 RF: 0 Eliquis 5 mg Tablet 5 mg PO BID Qty: 60 RF: 2 dexamethasone [Decadron] 6 mg tablet 6 mg PO DAILY Qty: 2 RF: 0 lisinopril 20 mg Tablet 20 mg PO DAILY Qty: 30 RF: 0 Continued levothyroxine 75 MCG tablet 75 mcg PO DAILY RF: 0 Discontinued atenolol [Tenormin] 25 MG tablet 12.5 mg PO DAILY RF: 0 Referrals / Follow Up: Kevin Auguste MD [STAFF PHYSICIAN] - Within 1 Month (Bilateral pulmonary embolism and COVID-19 infection) Jessa Alberto MD [Primary Care Provider] - Isabela Gipson DO [STAFF PHYSICIAN] - Disposition Disposition (needs filled in before D/C Order can be placed): Home, Self Care Charges/Coding Visit Charges Inpatient E&M: 94041 Disch Hosp
[2021-10-19] MEDS: Insulin Lispro 100 UNIT/ML INSULN.PEN SC (12:52)
[2021-10-19 13:00] LABS: Bedside Glucose 210 mg/dL (70-110)
[2021-10-21 09:03] LABS: Pathologist Review Reviewed
== END 2021-10-19 17:35 | disposition home or self-care (01) | DRG 177 ==
LOC: ED 15:14 → PCU 15:38
PROVIDERS: Internal Medicine Critical Care Medicine; Admitting Provider Family Medicine; Emergency Provider Emergency Medicine; PCP Family Medicine; Visit Provider Internal Medicine
DX: U07.1 COVID-19 (principal); I26.99 Other pulmonary embolism without acute cor pulmonale; J96.01 Acute respiratory failure with hypoxia; J12.82 Pneumonia due to coronavirus disease 2019; E87.2 Acidosis; E87.6 Hypokalemia; Z28.3 Underimmunization status; E11.65 Type 2 diabetes mellitus with hyperglycemia; I10 Essential (primary) hypertension; E03.9 Hypothyroidism, unspecified; R51.9 Headache, unspecified; E66.3 Overweight; Z68.26 Body mass index [BMI] 26.0-26.9, adult; Z79.890 Hormone replacement therapy; Z79.899 Other long term (current) drug therapy
CPT/HCPCS: 36415; 71045; 71275; 80053; 82550; 82728; 82962; 83036; 83605; 83615; 83735; 83880; 84145; 84484; 85025; 85379; 85384; 85610; 85730; 86140; 87040; 87426; 87449; 87633; 87635; 93005; 94660; 97110; 97162; 97165; 97530; 97535; 99251; 99285; J7030; Q9967; U0005; A4216; G0463; U0003

== ENCOUNTER → 2022-08-12 | Outpatient (CLI) | payer MEDICARE, SELFPAY ==
[2022-08-12 13:32] LABS: Absolute Neutrophil Count 5.4 X10^3/uL (2.0-7.7); Basophil# 0.05 X10^3/uL; Basophil% 0.6 % (0-1); Eosinophils% 1.1 % (0-5); Hematocrit 43.7 % (37-47); Hemoglobin 14.9 g/dL (12.0-15.0); Mean Corp Hgb Conc 34.1 g/dL (32-36); Mean Corpuscular Hgb 31.7 pg (27.0-32.0); Monocyte# 0.68 X10^3/uL; Monocyte% 7.5 % (0-10); NRBC Flagged by Analyzer 0 % (0-5); Neutrophil # 5.37 X10^3/uL (2.7-7.7); Neutrophil % 59.5 % (47-70); Platelet Count 233 K/mm3 (150-450); RBC Distribution Width CV 12.5 % (11.6-14.6)
[2022-08-12 13:55] LABS: Microalbumin,Random Urine 72.4 mg/L (NO RANGE EST.); Microalbumin:Creatinine Ratio 237.4 mg/g CRE (<30 mg/g CRE)
[2022-08-12 14:02] LABS: AST(SGOT) 32 U/L (15-37); Alanine Aminotransfer ALT/SGPT 43 U/L (13-56); Albumin, Serum 3.8 g/dL (3.2-5.0); Alkaline Phosphatase 68 U/L (45-117); Anion Gap 7 (5-15); BUN 16 mg/dL (7-18); BUN/Creat Ratio 20.6 RATIO (10-20); Chloride 104 mmol/L (98-107); Cholesterol 233 mg/dL (200); Creatinine, Serum 0.78 mg/dL (0.55-1.02); EST Glomerular Filtration Rate 75 mL/min (>60); Est Glom Filt Rate - Afr Amer 91 mL/min (>60); Glucose 158 mg/dL (74-106); High Density Lipoprotein 42 mg/dL; Protein, Total 7.8 g/dL (6.4-8.2); Sodium Level 140 mmol/L (136-145); Thyroid Stim Hormone (TSH) 2.07 uIU/mL (0.358-3.74); Triglycerides 247 mg/dL; Very Low Density Lipoprotein 49 mg/dL (5-40)
== END | disposition home or self-care (01) ==
LOC: LAB 12:29
PROVIDERS: PCP Family Medicine; Referring Provider Family Medicine; Visit Provider Family Medicine
DX: Z00.00 Encounter for general adult medical examination without abnormal findings (principal); E11.9 Type 2 diabetes mellitus without complications; I10 Essential (primary) hypertension
CPT/HCPCS: 36415; 80053; 80061; 82043; 82570; 84443; 85025

== ENCOUNTER 2023-02-12 19:01 | Inpatient (IN) | payer MEDICARE, SELFPAY ==
[2023-02-12 19:03] VITALS: BP 191/110; PULSE 81; RESP 14; TEMP 36.1; O2SAT 97
--- NOTE | 2023-02-12 20:01 | EKG12_ITS ---
Test Reason : Blood Pressure : / mmHG Vent. Rate : 068 BPM Atrial Rate : 068 BPM P-R Int : 216 ms QRS Dur : 126 ms QT Int : 474 ms P-R-T Axes : 059 032 040 degrees QTc Int : 504 ms Sinus rhythm with 1st degree A-V block Right bundle branch block Abnormal ECG When compared with ECG of 13-FEB-2023 05:58, MANUAL COMPARISON REQUIRED, DATA IS UNCONFIRMED Confirmed by MAR KILLIAN, YESY ([id number]), food expeditor NAPOLEON SAVAGE ([id number]) on 02/13/2023 1:22:13 PM Referred By: CIERA Confirmed By:YESY MANUEL MD
--- NOTE | 2023-02-12 20:11 | EKG12_ITS ---
Test Reason : DYSRHYTHMIA Blood Pressure : / mmHG Vent. Rate : 083 BPM Atrial Rate : 083 BPM P-R Int : 248 ms QRS Dur : 116 ms QT Int : 406 ms P-R-T Axes : 046 067 049 degrees QTc Int : 477 ms Sinus rhythm with 1st degree A-V block with Premature atrial complexes Right bundle branch block Abnormal ECG Confirmed by KRISTA KILLIAN, BRIDGETT ([id number]), editor farm journal NAPOLEON SAVAGE ([id number]) on 02/17/2023 7:48:51 AM Referred By: MARYANNE Confirmed By:JAMA VELASCO MD
[2023-02-12] MEDS: Ondansetron 4 MG/2 ML Vial IV (20:19)
[2023-02-12] MEDS: 0.9% Normal Saline 1,000 ML 150 ML IV (20:19)
[2023-02-12] MEDS: Morphine 4 MG/ML Syringe IV (20:19)
[2023-02-12 20:24] VITALS: PULSE 90; RESP 14; O2SAT 100; BMI 30.4
[2023-02-12 20:30] LABS: Absolute Lymphocyte Count 1.79 X10^3/uL (0.83-4.51); Absolute Neutrophil Count 8.2 X10^3/uL (2.0-7.7); Basophil# 0.06 X10^3/uL; Basophil% 0.6 % (0-1); Eosinophil# 0.08 X10^3/uL; Eosinophils% 0.7 % (0-5); Hematocrit 45.4 % (37-47); Hemoglobin 14.7 g/dL (12.0-15.0); Lymphocyte # 1.79 X10^3/ul (0.83-4.51); Lymphocyte % 16.7 % (19-41); Mean Corp Hgb Conc 32.4 g/dL (32-36); Mean Corpuscular Hgb 30.6 pg (27.0-32.0); Mean Corpuscular Volume 94.4 fL (81-99); Mean Platelet Vol. 10.4 fl (6.2-12.0); Monocyte# 0.54 X10^3/uL; NRBC Flagged by Analyzer 0 % (0-5); Neutrophil # 8.15 X10^3/uL (2.7-7.7); Neutrophil % 76.3 % (47-70); Platelet Count 249 K/mm3 (150-450); RBC Distribution Width CV 12.5 % (11.6-14.6); RBC Distribution Width SD 43.3 fl (35.1-43.9); Red Blood Count 4.81 M/mm3 (4.2-5.4); White Blood Count 10.7 K/mm3 (4.4-11.0)
--- NOTE | 2023-02-12 20:50 | RAD_ITS ---
INDICATION: Injury/Pain EXAMINATION/TECHNIQUE: X-RAY - XR Hip Unilateral with Pelvis when performed; 3 Views COMPARISON: None. FINDINGS: PELVIC BONES: No displaced fracture, destructive or sclerotic lesions. Note that overlapping bowel shadows may however obscure fine detail. Sacroiliac joints are unremarkable. No widening of the pubic symphysis. HIPS: There is a comminuted intertrochanteric fracture of the left femur. SOFT TISSUES: No soft tissue swelling or gas. Degenerative lower lumbar changes. RAD/HIP, UNI W/ Pelvis 2-3 Views IMPRESSION: There is a comminuted intertrochanteric fracture of the left femur. Electronically Signed: Howie Saunders DO at 21:12 EDT Reading Location ID and State: [facility] / [place] Tel [phone], Service support ,
--- NOTE | 2023-02-12 20:50 | RAD_ITS ---
INDICATION: Preop EXAMINATION/TECHNIQUE: X-RAY - XR Chest 1 View COMPARISON: October 11, 2021. FINDINGS: LINES/DEVICES: None. LUNGS: Possible pleural thickening at the left costophrenic angle. Mild interstitial prominence. Left upper lobe granuloma. No pneumothorax. MEDIASTINUM AND CARDIOVASCULAR STRUCTURES: Cardiac silhouette not enlarged. Calcified aortic arch. Central airways and mediastinal contour are unremarkable. BONES AND SOFT TISSUES: Degenerative vertebral changes old right rib fractures.. RAD/Chest 1 View (Portable) IMPRESSION: Mild interstitial prominence. Possible pleural thickening at the left costophrenic angle. Electronically Signed: Howie Saunders DO at 21:10 EDT Reading Location ID and State: [facility] / [place] Tel [phone], Service support ,
--- NOTE | 2023-02-12 21:16 | ED.RN ---
WHEN REVIEWING PATIENTS MEDICATIONS, PATIENT STATES SHE ONLY TAKES HER THYROID MEDICATION DAILY AND HER OTHER MEDICATIONS EVERY ONCE IN AWHILE
[2023-02-12 21:19] LABS: Anion Gap 11 (5-15); BUN 21 mg/dL (7-18); BUN/Creat Ratio 23.4 RATIO (10-20); Calcium,Total 9.2 mg/dL (8.5-10.1); Chloride 102 mmol/L (98-107); EST Glomerular Filtration Rate 63 mL/min (>60); Est Glom Filt Rate - Afr Amer 76 mL/min (>60); Estimated Creatinine Clearance 37.12 ml/min; Glucose 202 mg/dL (74-106); Potassium 3.8 mmol/L (3.5-5.1); Sodium Level 136 mmol/L (136-145)
[2023-02-12] MEDS: HYDROmorphone 0.5 MG/0.5 ML SYRINGE IV (21:23)
--- NOTE | 2023-02-12 22:13 | ED.VIS.LOWEX ---
HPI History of Present Illness Chief Complaint: Lower Extremity Injury Detail of Chief Complaint: Fall with injury to left hip. Informant: patient and EMS Occured/Mechanism Comment: Patient states she occasionally falls. There is no reason. She fell injuring her left hip. She was unable to rise from the ground. Paramedics transported her to the [facility]. Onset/Context/Timing Onset: Hours Context: Sudden Onset Timing: Continuous Quality of Pain: Dull and Aching Location: Left hip Current Severity: Mild Maximum Severity: Severe Worsened by: Any attempt at movement Relieved by: Nothing Narrative Narrative: Patient is an elderly woman who presents after fall. She was unable to rise from the ground. Paramedics were called and transported to the emergency department. She is on anticoagulant. She does have history of hypothyroidism and hypertension. When asked why she is on an anticoagulant she could not explain. She is told me that she stopped taking it. Patient states she did not hit her head when she fell. She denies neck pain. She denies paresthesia, anesthesia or motor weakness. She denies cardiac respiratory symptoms. She denies GI symptoms. Tetanus Immunization: <5 years Prior similar symptoms: No Recent Illness/Hospitalization: No PFSH PFSH Medical History Acute hypoxemic respiratory failure Bilateral pulmonary embolism COVID-19 Hypertension Hypothyroidism Overweight (BMI 25.0-29.9) Home Medications levothyroxine 75 mcg tablet 75 mcg PO DAILY THYROID 05/17/17 [History Last Taken 09/29/19 0730] apixaban 5 mg tablet (Eliquis) 5 mg PO BID #60 tabs 10/19/21 [Rx Last Taken Unknown] dexamethasone 6 mg tablet (Decadron) 6 mg PO DAILY #2 tabs 10/19/21 [Rx Last Taken Unknown] lisinopril 20 mg tablet 20 mg PO DAILY #30 tabs 10/19/21 [Rx Last Taken Unknown] Allergy/AdvReac Type Severity Reaction Status Date / Time No Known Allergies Allergy Verified 02/12/23 19:03 Family History Mother Cancer Surgical History S/P hysterectomy Social History household members: other details: Notes her son lives with her. Smoking Status: Never smoker alcohol intake: never substance use type: does not use ROS ROS ED Constitutional Constitutional ED: Denies chills or fever(s) Eyes Eyes: Denies blurry vision, change in vision or diplopia ENT ENT ED: Denies ear pain, rhinorrhea or sore throat Cardiovascular Cardiovascular: Denies chest pain, palpitations or racing heartbeat Respiratory/Chest Respiratory/Chest: Denies cough, dyspnea or dyspnea on exertion Gastrointestinal Gastrointestinal: Denies abdominal pain, nausea or vomiting Genitourinary Genitourinary ED: Denies dysuria, hematuria or urinary frequency Musculoskeletal Musculoskeletal: Denies arthralgias, back pain, myalgias or neck pain Integumentary Denies abscess, Abrasions or rash Neurologic Neurologic: Denies headache(s), paresthesias or weakness Endocrine Endocrinology: Denies polydipsia, polyphagia or polyuria Hematologic/Lymphatic Hematologic/Lymphatic: Denies easy bleeding or easy bruising EXAM Physical Exam Const Vital Signs: 02/12/23 19:03 02/12/23 20:24 Temperature 97 F L Temperature Source Temporal Pulse Rate 81 90 Respiratory Rate 14 14 Blood Pressure 191/110 H Blood Pressure Mean 137 Pulse Ox 97 100 Oxygen Delivery Method Room Air Room Air Positive well nourished, well developed and obese Constitutional Narrative: Patient appears uncomfortable. General Appearance ED: well developed Nutritional Appearance: obese HEENT Reports moist mucous membranes HEENT Narrative: There is no clinical findings of basilar skull fracture. normocephalic and atraumatic Eyes PERRL Eyes Narrative: Extract muscle intact. Sclera is anicteric. Conjunctive is pink. There is no subconjunctival hemorrhage. Neck full ROM and supple Neck Narrative: Is no pain no patient posteriorly Chest Wall inspection of chest normal and palpation of chest normal Resp normal respiratory effort, no retractions and clear to auscultation bilaterally Cardio regular rate, regular rhythm, S1 normal heart sound, S2 normal heart sound and no murmurs GI non-tender, non-distended and no masses Palpation: soft Back/Spine no CVA tenderness Extremity Extremity Narrative: Patient has shortening of her left extremity. DP pulses palpable. There is no pain ovation of the toes, foot or ankle. There is no pain the patient over the knee. Any attempt to rotate the left lower extremity causes discomfort. Neuro oriented x3, CN's II-XII intact bilaterally, No moves all extremities and no sensory deficits noted Sensorium / Orientation: alert Plantar Reflex: Downgoing: bilateral Psych mental status grossly normal Skin no wounds Lesions: no lesions Rashes: no rashes MDM MDM MDM Narrative Medical decision making narrative: Clinically patient has a fractured hip. Since she is not on anticoagulant did not hit her head imaging of the head is not indicated. C-spine was cleared per Nexus criteria. Patient has obvious deformity of the left lower extremity exam images were obtained to determine if she has a femoral neck fracture versus intertrochanteric fracture versus infra trochanteric fracture. Chest x-ray was obtained for preoperative clearance as well as appropriate blood work. History & Record Review Discussion w/independent historian: EMS personnel, Patient and Family Additional record(s) reviewed:: Prior inpatient record (Rest admission 2020 for hypokalemia), Prior outpatient record (For musculoskeletal complaints) and Prior ED visit (Skill skeletal traumatic complaint) Lab Data Attestation: I reviewed the patient's lab results. Lab results narrative: CBC is unremarkable. Basic metabolic panel is unremarkable. Labs: Laboratory Results - last 24 hr 02/12/23 02/12/23 20:15 20:15 WBC 10.7 RBC 4.81 Hgb 14.7 Hct 45.4 MCV 94.4 MCH 30.6 MCHC 32.4 RDW Std Deviation 43.3 RDW Coeff of Marguerite 12.5 Plt Count 249 MPV 10.4 Immature Gran % (Auto) 0.700 Neut % (Auto) 76.3 H Lymph % (Auto) 16.7 L [place] % (Auto) 5.0 Eos % (Auto) 0.7 Baso % (Auto) 0.6 Absolute Neuts (auto) 8.2 H Absolute Lymphs (auto) 1.79 Nucleated RBC % 0 Sodium 136 Potassium 3.8 Chloride 102 Carbon Dioxide 23.0 Anion Gap 11 BUN 21 H Creatinine 0.90 Estim Creat Clear Calc 37.12 Est GFR (MDRD) Af Amer 76 Est GFR (MDRD) Non-Af 63 BUN/Creatinine Ratio 23.4 H Glucose 202 H Calcium 9.2 Radiography Chest X-Ray - ED: 1 View (Single view chest x-ray reveals underpenetration. The lungs are underinflated. This makes ruling out interstitial prominence difficult. There is no obvious infiltrate or effusion. Cardiac silhouette and size unremarkable. There is evidence of degenerative changes. This was independent reviewed) and Read by ED Physician (Three-view x-ray of the hip reveals a comminuted intertrochanteric fracture on the left.) Diagnostic Testing: Clinical Impression(s) from Imaging Studies Chest X-Ray 02/12/23 20:50 IMPRESSION: Mild interstitial prominence. Possible pleural thickening at the left costophrenic angle. Electronically Signed: Howie Saunders DO at 21:10 EDT , Hip/Pelvis X-Ray 02/12/23 20:50 IMPRESSION: There is a comminuted intertrochanteric fracture of the left femur. Electronically Signed: Howie Sanuders DO at 21:12 EDT , EKG Initial EKG: Attestation: I personally reviewed and interpreted this EKG as follows: Interpretation: Sinus Rhythm (Rate is 83 with a first-degree AV block. [place] interval is 248 ms. There is evidence of right bundle branch block with a QRS duration 160 ms. QT duration 406 ms. [place] is normal) Management Discussion w/another healthcare provider: Hospitalist and State Assessed Properties Director (Ortho) Treatment and Re-Evaluation Narrative: Patient was medicated with opiate analgesia for pain. Case was discussed with orthopedist for an mission for open reduction internal fixation of intertrochanteric fracture and hospitalist was made aware. The orthopedist was informed that she is on an anticoagulant. This is incorrect after talking with the patient. She was on the anticoagulant after reviewing prior records for pulmonary embolus. She has been off the Eliquis apparently per her choosing. Discharge Plan Triage Chief Complaint: Lower Extremity Injury ED Provider: Tonny Hardwick Dx/Rx/DC Orders Clinical Impression: Closed intertrochanteric fracture of left femur, Hypertension, Hypothyroidism Prescriptions: No Action levothyroxine 75 MCG tablet 75 mcg PO DAILY Eliquis 5 mg Tablet 5 mg PO BID Qty: 60 2RF Rx Instructions: Start on 10/26/2021 dexamethasone [Decadron] 6 mg tablet 6 mg PO DAILY Qty: 2 0RF lisinopril 20 mg Tablet 20 mg PO DAILY Qty: 30 0RF Primary Care Provider: eJssa Alberto Referrals: Jessa Alberto MD [Primary Care Provider] - Disposition Disposition: Acute Care Hospital [facility]
--- NOTE | 2023-02-12 23:44 | PCM.HP.STD ---
HPI - General General Date of Admission: 02/12/23 Date of Service: 02/12/23 Chief Complaint: Fall HPI Narrative SARAH SCHMITZ, is a 87 F with a significant history of pulmonary embolism (who took an anticoagulation about a week ago) hypertension and hypothyroidism who presents to the emergency department with 2 falls on the same day of presentation. Reportedly she fell on her back. Reportedly she has had multiple falls in the past. She reports excruciating pain at the left hip. Patient received IV narcotic at the emergency department. Reportedly at the emergency department patient was found to be vomiting. [facility] Medical History Acute hypoxemic respiratory failure Bilateral pulmonary embolism COVID-19 Hypertension Hypothyroidism Irritable bowel Overweight (BMI 25.0-29.9) Restless legs Home Medications levothyroxine 75 mcg tablet 75 mcg PO DAILY THYROID 05/17/17 [History Last Taken 09/29/19 0730] apixaban 5 mg tablet (Eliquis) 5 mg PO BID #60 tabs 10/19/21 [Rx Last Taken Unknown] dexamethasone 6 mg tablet (Decadron) 6 mg PO DAILY #2 tabs 10/19/21 [Rx Last Taken Unknown] lisinopril 20 mg tablet 20 mg PO DAILY #30 tabs 10/19/21 [Rx Last Taken Unknown] Allergy/AdvReac Type Severity Reaction Status Date / Time No Known Allergies Allergy Verified 02/12/23 19:03 Family History Mother Cancer Surgical History History of appendectomy S/P hysterectomy Social History household members: other details: Notes her son lives with her. Smoking Status: Never smoker alcohol intake: never substance use type: does not use ROS ROS Narrative Pertinent positives and pertinent negatives as noted in HPI. All other systems were reviewed and are negative Vital Signs Vital Signs Vital Signs: 02/12/23 19:03 02/12/23 20:24 Temperature 97 F L Temperature Source Temporal Pulse Rate 81 90 Respiratory Rate 14 14 Blood Pressure 191/110 H Blood Pressure Mean 137 Pulse Ox 97 100 Oxygen Delivery Method Room Air Room Air Weight Weight: 77.9 kg Body Mass Index (BMI) 30.4 Physical Exam Narrative Physical exam: General: Well-nourished, well-developed. Head: Normocephalic, atraumatic, no tenderness Eyes: Vision is grossly intact. EOMI ENT, no trauma, moist mucous membranes, no rhinorrhea Neck: Nontender, No thyromegaly. CVS: Regular rate and rhythm. S1-S2 present. No murmur, gallop or rub. Respiratory : clear to auscultation bilaterally, chest wall nontender Abdomen: Soft, nontender, nondistended, normal bowel sounds, no masses : Deferred Back: Nontender, no CVA tenderness, no midline spinal tenderness, deformities, step-offs Extremities: Right hip nontender, full range of motion. Left hip not tested for range of motion secondary to fracture. Left hip tender. Left lower extremity shortened and externally rotated. Skin: Normal color, no trauma, abrasions Neuro: Alert, oriented, cranial nerves II through XII grossly intact. Psychiatry: Normal mood. Normal affect. Not depressed. Not anxious. Results Lab / Micro Data Result Diagrams: 02/12/23 20:15 02/13/23 01:16 Labs: Laboratory Results - last 24 hr 02/12/23 20:15: WBC 10.7, RBC 4.81, Hgb 14.7, Hct 45.4, MCV 94.4, MCH 30.6, MCHC 32.4, RDW Std Deviation 43.3, RDW Coeff of Marguerite 12.5, Plt Count 249, MPV 10.4, Immature Gran % (Auto) 0.700, Neut % (Auto) 76.3 H, Lymph % (Auto) 16.7 L, [place] % (Auto) 5.0, Eos % (Auto) 0.7, Baso % (Auto) 0.6, Absolute Neuts (auto) 8.2 H, Absolute Lymphs (auto) 1.79, Nucleated RBC % 0 02/12/23 20:15: Sodium 136, Potassium 3.8, Chloride 102, Carbon Dioxide 23.0, Anion Gap 11, BUN 21 H, Creatinine 0.90, Estim Creat Clear Calc 37.12, Est GFR (MDRD) Af Amer 76, Est GFR (MDRD) Non-Af 63, BUN/Creatinine Ratio 23.4 H, Glucose 202 H, Calcium 9.2 Radiology Impression Chest X-Ray 02/12/23 20:50 IMPRESSION: Mild interstitial prominence. Possible pleural thickening at the left costophrenic angle. Electronically Signed: Howie Saunders DO at 21:10 EDT , Hip/Pelvis X-Ray 02/12/23 20:50 IMPRESSION: There is a comminuted intertrochanteric fracture of the left femur. Electronically Signed: Howie Saunders DO at 21:12 EDT , Assessment & Plan Assessment/Plan (1) Closed intertrochanteric fracture of left femur: (2) Hypertension: (3) Hypothyroidism: PLAN: Plan Comminuted intertrochanteric fracture of the left femur Impression of hip/Pelvis x-ray by radiology:There is a comminuted intertrochanteric fracture of the left femur. Hip/pelvis x-ray was visualized and independently interpreted and I agree with radiologist interpretation. Emergent department doctor discussed the case with Dr. Andrews. Inpatient consult for orthopedic surgery. Morphine IV as needed ordered. Tylenol as needed ordered. Bowel protocol and antiemetics IV ordered. Clear liquids and then npo for possible surgery Check vitamin D level. Preoperative EKG ordered ACS NSQIP surgical risk calculator with below surgical risk. Okay to proceed with surgery if EKG does not show ischemia or acute infarct. Hypertension Blood pressure is not within goal Lisinopril continued. As needed hydralazine ordered. Trend blood pressure and adjust blood pressure medications. Hypothyroidism Stable [place] continued DVT prophylaxis SCD ordered Charges/Coding Visit Charges Inpatient E&M: 95033 Init Hosp L2
[2023-02-12 23:48] VITALS: BP 165/93; PULSE 81; RESP 16; O2SAT 95
[2023-02-13] VITALS (15 sets, daily range): BP systolic 126–185; BP diastolic 64–164; PULSE 69–91; RESP 16–20; TEMP 36.2–36.8; O2SAT 95–100; BMI 29.2
[2023-02-13 01:53] LABS: ALB/GLOB Ratio 1.1 RATIO (0.9-2.4); AST(SGOT) 27 U/L (15-37); Alanine Aminotransfer ALT/SGPT 33 U/L (13-56); Albumin, Serum 3.4 g/dL (3.2-5.0); Alkaline Phosphatase 65 U/L (45-117); Anion Gap 9 (5-15); BUN 17 mg/dL (7-18); BUN/Creat Ratio 21.2 RATIO (10-20); Calcium,Total 8.5 mg/dL (8.5-10.1); Chloride 103 mmol/L (98-107); EST Glomerular Filtration Rate 72 mL/min (>60); Est Glom Filt Rate - Afr Amer 87 mL/min (>60); Estimated Creatinine Clearance 41.76 ml/min; Globulin 3.1 g/dL (2.2-4.2); Glucose 207 mg/dL (74-106); Protein, Total 6.5 g/dL (6.4-8.2); Sodium Level 138 mmol/L (136-145)
[2023-02-13] MEDS: MELATONIN 3 MG TABLET PO (01:54)
[2023-02-13] MEDS: Acetaminophen 325 MG Tablet 650 MG PO (01:56)
[2023-02-13] MEDS: Morphine 4 MG/ML Syringe IV ×3 (01:57→14:21)
[2023-02-13] MEDS: Lactated Ringers 1,000 ML 60 ML IV ×2 (02:00→19:51)
[2023-02-13] MEDS: 0.9% Saline Lock 10 ML Syringe IV (06:42)
[2023-02-13] MEDS: Ondansetron 4 MG/2 ML Vial IV (06:42)
[2023-02-13 06:48] LABS: Absolute Lymphocyte Count 2.32 X10^3/uL (0.83-4.51); Absolute Neutrophil Count 10.3 X10^3/uL (2.0-7.7); Basophil# 0.03 X10^3/uL; Basophil% 0.2 % (0-1); Eosinophil# 0.01 X10^3/uL; Eosinophils% 0.1 % (0-5); Hematocrit 35.1 % (37-47); Hemoglobin 11.7 g/dL (12.0-15.0); Lymphocyte # 2.32 X10^3/ul (0.83-4.51); Lymphocyte % 17.2 % (19-41); Mean Corp Hgb Conc 33.3 g/dL (32-36); Mean Corpuscular Hgb 31.3 pg (27.0-32.0); Mean Corpuscular Volume 93.9 fL (81-99); Mean Platelet Vol. 10.7 fl (6.2-12.0); Monocyte# 0.84 X10^3/uL; Monocyte% 6.2 % (0-10); NRBC Flagged by Analyzer 0 % (0-5); Neutrophil # 10.27 X10^3/uL (2.7-7.7); Neutrophil % 75.9 % (47-70); Platelet Count 228 K/mm3 (150-450); RBC Distribution Width CV 12.7 % (11.6-14.6); RBC Distribution Width SD 43.8 fl (35.1-43.9); Red Blood Count 3.74 M/mm3 (4.2-5.4); White Blood Count 13.5 K/mm3 (4.4-11.0)
[2023-02-13 07:14] LABS: Anion Gap 6 (5-15); BUN 19 mg/dL (7-18); BUN/Creat Ratio 25.4 RATIO (10-20); Calcium,Total 8.2 mg/dL (8.5-10.1); Chloride 103 mmol/L (98-107); Creatinine, Serum 0.75 mg/dL (0.55-1.02); EST Glomerular Filtration Rate 78 mL/min (>60); Est Glom Filt Rate - Afr Amer 94 mL/min (>60); Estimated Creatinine Clearance 33.41 ml/min; Glucose 152 mg/dL (74-106); Potassium 3.8 mmol/L (3.5-5.1); Sodium Level 137 mmol/L (136-145)
--- NOTE | 2023-02-13 07:25 | CON.PCM.OR_ITS ---
HPI Consult Data Date of Consult: 02/13/23 HPI Narrative HPI Narrative: SARAH SCHMITZ, is a 87 F who presents after 2 separate mechanical falls yesterday from standing height. The second fall she felt moving trash after performing some lawn care onto a hard sidewalk. She was unable to ambulate. She was brought to the emergency department and x-rays revealed a left intertrochanteric proximal femur fracture. She was admitted under the service of the hospitalist. I saw the patient in consultation this morning. Patient had remote PE and has not been on Eliquis recently. She denies antecedent left hip or groin pain. She occasionally uses a cane to ambulate at night. She reports multiple falls which she states is due to loss of balance but she cannot predict when she falls. Denies any antecedent syncopal or presyncopal symptoms prior to this fall. Denies fevers, chills, nausea or vomiting, chest pain or shortness of breath. Patient lives at home with her son who is not home full- time. REPLACED BY [facility] Medical History Acute hypoxemic respiratory failure Bilateral pulmonary embolism COVID-19 Hypertension Hypothyroidism Irritable bowel Overweight (BMI 25.0-29.9) Restless legs Home Medications levothyroxine 75 mcg tablet 75 mcg PO DAILY THYROID 05/17/17 [History Last Taken 09/29/19 0730] apixaban 5 mg tablet (Eliquis) 5 mg PO BID #60 tabs 10/19/21 [Rx Last Taken Unknown] dexamethasone 6 mg tablet (Decadron) 6 mg PO DAILY #2 tabs 10/19/21 [Rx Last Taken Unknown] lisinopril 20 mg tablet 20 mg PO DAILY #30 tabs 10/19/21 [Rx Last Taken Unknown] Allergy/AdvReac Type Severity Reaction Status Date / Time No Known Allergies Allergy Verified 02/12/23 19:03 Family History Mother Cancer Surgical History History of appendectomy S/P hysterectomy Social History household members: other details: Notes her son lives with her. Smoking Status: Never smoker alcohol intake: never substance use type: does not use ROS ROS Narrative 12 point review of systems obtained, negative unless otherwise noted HPI. Vital Signs Vital Signs Vital Signs: 02/12/23 19:03 02/12/23 20:24 02/12/23 23:48 Temperature 97 F L Temperature Source Temporal Pulse Rate 81 90 81 Respiratory Rate 14 14 16 Blood Pressure 191/110 H 165/93 H Blood Pressure Mean 137 117 Blood Pressure Source Blood Pressure Position Blood Pressure Location Pulse Ox 97 100 95 Oxygen Delivery Method Room Air Room Air Room Air 02/13/23 00:18 02/13/23 02:00 Temperature 98 F 98.1 F Temperature Source Temporal Oral Pulse Rate 79 83 Respiratory Rate 16 18 Blood Pressure 159/81 H 158/79 H Blood Pressure Mean 107 105 Blood Pressure Source Monitor Blood Pressure Position Supine Blood Pressure Location Right Forearm Pulse Ox 97 97 Oxygen Delivery Method Room Air Room Air Weight Weight: 164 lb 14.492 oz Body Mass Index (BMI) 29.2 Physical Exam Narrative General -A&Ox3, NAD, appears stated age. Vital signs stable, afebrile. Respiratory -normal work of breathing, no intercostal retractions. CV -pulses regular, brisk capillary refill ?4 limbs. Abdomen-soft, nontender, nondistended. No guarding, rigidity, rebound tenderness. Musculoskeletal/neurologic -full range of motion nontender throughout bilateral upper extremities, left lower extremity with full sensation and strength in all dermatomes and myotomes. No midline cervical tenderness. Left lower extremity-no obvious deformity. Pain with logroll of the left lower extremity. Nontender throughout the left knee femoral shaft, tibial shaft and left foot/ankle. She does have tenderness along the anterior proximal tibia without gross deformity. Brisk capillary refill. Sensation intact light touch L3-S1 dermatomes. DF, PF, EHL intact. DP, PT 2+. Pelvis is stable, nontender. Skin is intact without lacerations, abrasions. No ecchymosis noted. Lab / Micro Data Result Diagrams: 02/13/23 06:05 02/13/23 06:05 Labs: Laboratory Results - last 24 hr 02/12/23 20:15: WBC 10.7, RBC 4.81, Hgb 14.7, Hct 45.4, MCV 94.4, MCH 30.6, MCHC 32.4, RDW Std Deviation 43.3, RDW Coeff of Magruerite 12.5, Plt Count 249, MPV 10.4, Immature Gran % (Auto) 0.700, Neut % (Auto) 76.3 H, Lymph % (Auto) 16.7 L, [place] % (Auto) 5.0, Eos % (Auto) 0.7, Baso % (Auto) 0.6, Absolute Neuts (auto) 8.2 H, Absolute Lymphs (auto) 1.79, Nucleated RBC % 0 02/12/23 20:15: Sodium 136, Potassium 3.8, Chloride 102, Carbon Dioxide 23.0, Anion Gap 11, BUN 21 H, Creatinine 0.90, Estim Creat Clear Calc 37.12, Est GFR (MDRD) Af Amer 76, Est GFR (MDRD) Non-Af 63, BUN/Creatinine Ratio 23.4 H, Glucose 202 H, Calcium 9.2 02/13/23 01:16: Sodium 138, Potassium 4.0, Chloride 103, Carbon Dioxide 26.0, Anion Gap 9, BUN 17, Creatinine 0.80, Estim Creat Clear Calc 41.76, Est GFR (MDRD) Af Amer 87, Est GFR (MDRD) Non-Af 72, BUN/Creatinine Ratio 21.2 H, Glucose 207 H, Calcium 8.5, Total Bilirubin 0.60, AST 27, ALT 33, Alkaline Phosphatase 65, Total Protein 6.5, Albumin 3.4, Globulin 3.1, Albumin/Globulin Ratio 1.1 02/13/23 01:16: Vitamin D 25-Hydroxy 24.0 02/13/23 06:05: WBC 13.5 H, RBC 3.74 L, Hgb 11.7 L, Hct 35.1 L, MCV 93.9, MCH 31.3, MCHC 33.3, RDW Std Deviation 43.8, RDW Coeff of Marguerite 12.7, Plt Count 228, MPV 10.7, Immature Gran % (Auto) 0.400, Neut % (Auto) 75.9 H, Lymph % (Auto) 17.2 L, [place] % (Auto) 6.2, Eos % (Auto) 0.1, Baso % (Auto) 0.2, Absolute Neuts (auto) 10.3 H, Absolute Lymphs (auto) 2.32, Nucleated RBC % 0 02/13/23 06:05: Sodium 137, Potassium 3.8, Chloride 103, Carbon Dioxide 28.0, Anion Gap 6, BUN 19 H, Creatinine 0.75, Estim Creat Clear Calc 33.41, Est GFR (MDRD) Af Amer 94, Est GFR (MDRD) Non-Af 78, BUN/Creatinine Ratio 25.4 H, Glucose 152 H, Calcium 8.2 L Radiology Impression Chest X-Ray 02/12/23 20:50 IMPRESSION: Mild interstitial prominence. Possible pleural thickening at the left costophrenic angle. Electronically Signed: Howie Saunders DO at 21:10 EDT , Hip/Pelvis X-Ray 02/12/23 20:50 IMPRESSION: There is a comminuted intertrochanteric fracture of the left femur. Electronically Signed: Howie Saunders DO at 21:12 EDT , Assessment & Plan Assessment/Plan (1) Closed intertrochanteric fracture of left femur: PLAN: Patient sustained a left intertrochanteric proximal femur fracture. -Closed, neurovascularly intact -X-rays left knee ordered to rule out additional injury -Recommending surgical intervention in the form of left femur cephalomedullary nailing -I discussed the procedure-its risks, benefits and alternative. Risks include but are not limited to bleeding, infection, loss of life or limb, risk of anesthesia, persistent pain or disability, need for additional surgery, nonunion, malunion, failure of orthopedic hardware, neurovascular injury, DVT or PE. Patient expressed understanding these risks and wished proceed with surgery. -Maintenance IV fluids, clear liquid diet after midnight n.p.o. at 2 hours prior to surgery -Type and screen -2 g Ancef on-call to the OR -Bedrest, heel protectors -Plan to proceed with surgery later today when OR becomes available Thank you for this consultation.
--- NOTE | 2023-02-13 07:35 | RAD_ITS ---
STUDY: X-RAY - LEFT KNEE REASON FOR EXAM: Female, 87 years old. Pain following a fall. TECHNIQUE: 2 view(s) of the knee. COMPARISON: None. FINDINGS: Normal visualized distal femur. Normal visualized proximal tibia and fibula. Normal proximal tibiofibular articulation. 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 Normal lateral femorotibial compartment. There is severe degenerative arthrosis of the patellofemoral articulation. There are atherosclerotic calcifications. RAD/Knee 1 or 2 Views IMPRESSION: Degenerative arthrosis. Electronically Signed: Jimenez Fuentes MD at 12:10 EDT ,
--- NOTE | 2023-02-13 09:20 | CASEMGMT ---
Social Work SW to room to meet with patient for initial transition planning/care coordination assessment. SW introduced self and role at [facility]. Pt voices understanding and consents to assessment at this time. Pt resting in bed in no distress, A/O x3 at this time and answers all questions appropriately. Care providers, pharmacy, and demographics verified/updated at this time. PCP: Dolly Specialists: none Preferred Pharmacy: [facility] Retail Insurance: [employer] Medicare Prescription Benefit: Yes Living Will/HPOA: No. Pt denies desire to complete at this time. LNOK: Pt's son Ever Julian and Erich Julian Living Arrangements: Pt lives in a 2 story home with first floor set up. Pt is independent in all ADLS and IADLS. 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 Pt states her son lives with her but does not help her in any capacity. Transportation: Pt drives self and has no transportation issues. DME: Pt has walker and cane but does not use them HHC/SNF: no previous Plan: SW spoke with pt regarding discharge plan. Pt is adamant at this time that she will not need home health care or SNF post surgery. SW spoke with pt regarding usual need for post surgical rehabilitation and options of SNF and home health. A list of SNF providers including quality and resource use data and consistent with the patient?s preferred geographic region, medical needs, and insurance network were provided from the [employer] Guide. SW will follow up with pt post surgery for discharge planning. GONZALES Stoddard
--- NOTE | 2023-02-13 10:05 | PN.HOSP_ITS ---
Reason for Visit Reason for Visit: Diagnoses Hypothyroidism, unspecified (02/12/23) Essential (primary) hypertension (02/12/23) Displaced intertrochanteric fracture of left femur, initial encounter for closed fracture (02/12/23) Subjective Subjective Reports having some pain but otherwise no acute complaints Objective Data Objective Data Vital Signs: Vital Signs Temp Pulse Resp BP Pulse Ox O2 Del Method 97.7 F L 69 18 153/64 H 95 Room Air 02/13/23 08:01 02/13/23 08:01 02/13/23 08:01 02/13/23 08:01 02/13/23 08:24 02/13/23 08:24 Oxygen Delivery Method Room Air Weight: 74.8 kg Body Mass Index (BMI) 29.2 Intake & Output: Intake and Output for Last 24 Hours 02/11/23 02/12/23 02/13/23 23:59 23:59 23:59 Intake Total 640 / 640 Output Total 800 / 800 Balance -160 / -160 Lab / Micro Data Result Diagrams: 02/13/23 06:05 02/13/23 06:05 Labs: Laboratory Results - last 24 hr 02/12/23 20:15: WBC 10.7, RBC 4.81, Hgb 14.7, Hct 45.4, MCV 94.4, MCH 30.6, MCHC 32.4, RDW Std Deviation 43.3, RDW Coeff of Marguerite 12.5, Plt Count 249, MPV 10.4, Immature Gran % (Auto) 0.700, Neut % (Auto) 76.3 H, Lymph % (Auto) 16.7 L, [place] % (Auto) 5.0, Eos % (Auto) 0.7, Baso % (Auto) 0.6, Absolute Neuts (auto) 8.2 H, Absolute Lymphs (auto) 1.79, Nucleated RBC % 0 02/12/23 20:15: Sodium 136, Potassium 3.8, Chloride 102, Carbon Dioxide 23.0, Anion Gap 11, BUN 21 H, Creatinine 0.90, Estim Creat Clear Calc 37.12, Est GFR (MDRD) Af Amer 76, Est GFR (MDRD) Non-Af 63, BUN/Creatinine Ratio 23.4 H, Glucose 202 H, Calcium 9.2 02/13/23 01:16: Sodium 138, Potassium 4.0, Chloride 103, Carbon Dioxide 26.0, Anion Gap 9, BUN 17, Creatinine 0.80, Estim Creat Clear Calc 41.76, Est GFR ( MDRD) Af Amer 87, Est GFR (MDRD) Non-Af 72, BUN/Creatinine Ratio 21.2 H, Glucose 207 H, Calcium 8.5, Total Bilirubin 0.60, AST 27, ALT 33, Alkaline Phosphatase 65, Total Protein 6.5, Albumin 3.4, Globulin 3.1, Albumin/Globulin Ratio 1.1 02/13/23 01:16: Vitamin D 25-Hydroxy 24.0 02/13/23 06:05: WBC 13.5 H, RBC 3.74 L, Hgb 11.7 L, Hct 35.1 L, MCV 93.9, MCH 31.3, MCHC 33.3, RDW Std Deviation 43.8, RDW Coeff of Marguerite 12.7, Plt Count 228, MPV 10.7, Immature Gran % (Auto) 0.400, Neut % (Auto) 75.9 H, Lymph % (Auto) 17.2 L, [place] % (Auto) 6.2, Eos % (Auto) 0.1, Baso % (Auto) 0.2, Absolute Neuts (auto) 10.3 H, Absolute Lymphs (auto) 2.32, Nucleated RBC % 0 02/13/23 06:05: Sodium 137, Potassium 3.8, Chloride 103, Carbon Dioxide 28.0, Anion Gap 6, BUN 19 H, Creatinine 0.75, Estim Creat Clear Calc 33.41, Est GFR (MDRD) Af Amer 94, Est GFR (MDRD) Non-Af 78, BUN/Creatinine Ratio 25.4 H, Glucose 152 H, Calcium 8.2 L 02/13/23 06:05: TSH 1.40 02/13/23 06:05: Blood Type A POSITIVE, Antibody Screen NEGATIVE Radiography Diagnostic Testing: Radiology Impression Chest X-Ray 02/12/23 20:50 IMPRESSION: Mild interstitial prominence. Possible pleural thickening at the left costophrenic angle. Electronically Signed: Howie Saunders DO at 21:10 EDT Reading Location ID and State: [facility] / [place] Tel [phone], Service support , Hip/Pelvis X-Ray 02/12/23 20:50 IMPRESSION: There is a comminuted intertrochanteric fracture of the left femur. Electronically Signed: Howie Saunders DO at 21:12 EDT , Physical Exam Narrative General: Alert, oriented, no apparent distress HEENT: Atraumatic, normocephalic Eyes: Anicteric, normal conjunctiva, extraocular movements grossly intact Neck: Supple Respiratory: Clear to auscultation bilaterally, normal respiratory effort Cardiovascular: Regular rate and rhythm GI: Soft, nontender, nondistended Extremities: No edema Musculoskeletal: Pain with movement of left lower extremity Neuro: No overt focal neurological deficits Skin: No rashes appreciated Psych: Cooperative Assessment & Plan Assessment/Plan (1) Closed intertrochanteric fracture of left femur: PLAN: Plan #Comminuted intertrochanteric fracture of the left femur -Seen on hip and pelvis x-ray. 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
--- NOTE | 2023-02-13 15:27 | NURSING ---
Patient off unit to OR at this time.
[2023-02-13] MEDS: Cefazolin 2 GM in 0.9% Normal Saline 100 ML IV (16:20)
--- NOTE | 2023-02-13 16:30 | RAD_ITS ---
EXAM: XR LEFT HIP WITH PELVIS WHEN PERFORMED, 1 VIEW CLINICAL INDICATION: ORIF GAMMA NAIL TECHNIQUE: Frontal view of the left hip with pelvis when performed. This report was created using [employer] report generation technology. COMPARISON: None. FINDINGS: Multiple intraoperative images submitted for intramedullary fixation of a proximal femur fracture. Please see surgical report for full details. RAD/Hip Min 2 Views (Portable) IMPRESSION: 1. Multiple intraoperative images submitted for intramedullary fixation of a proximal femur fracture. 2. Please see surgical report for full details. Electronically Signed: Kalia Pritchett MD at 0:15 EDT ,
--- NOTE | 2023-02-13 19:16 | PCM.OPRPT ---
Report of Operation Date of Procedure: 02/13/23 Description of Surgical Findings:: Preoperative diagnosis: Left intertrochanteric proximal femur fracture Postoperative diagnosis: Left intertrochanteric proximal femur fracture Procedure: Treatment of intertrochanteric hip fracture with intramedullary nail left femur Surgeon: Jose Andrews DO Senior Net Developer Architect: LELAND Roy Anesthesia: General LMA Anesthesiologist: Dr. Damon Complications: None Drains: None Estimated blood loss: 300 cc Urinary output: 350 cc via Gross catheter IV fluids: 1000 cc crystalloid Specimens: None Surgical implants: Tracy Gamma3 Cephalomedullary Nail 125 degree 10 mm x 380 mm left, 10.5 mm x 95 mm lag screw, Interlocking screw size 5 mm x 42.5 mm, 5 mm x 45 mm Surgical indications: SARAH SCHMITZ, is a 87 F who presents after 2 separate mechanical falls yesterday from standing height. The second fall she felt moving trash after performing some lawn care onto a hard sidewalk. She was unable to ambulate. She was brought to the emergency department and x-rays revealed a left intertrochanteric proximal femur fracture. She was admitted under the service of the hospitalist. I saw the patient in consultation this morning. Patient had remote PE and has not been on Eliquis recently. She denies antecedent left hip or groin pain. She occasionally uses a cane to ambulate at night. She reports multiple falls which she states is due to loss of balance but she cannot predict when she falls. I saw the patient in consultation this morning. I recommended cephalomedullary nail fixation of her left intertrochanteric proximal femur fracture. The risks, benefits, alternatives to procedure reviewed with the patient. The risks of the surgery included bleeding, infection, loss of life or limb, malunion, nonunion, damage to vital structures, neurovascular injury, failure of orthopedic hardware, need for additional surgery, persistent pain or disability, risk of anesthesia. The patient expressed understanding of these risks and agreed to proceed with surgery. Blood consent was also obtained. Description of procedure: Patient was seen in preoperative holding area. She was identified by name, medical record number, date of . The operative extremity was marked with a surgical marker. We confirmed informed consent with the patient and questions were answered to her satisfaction. Patient was brought to the operative suite, and general anesthesia was induced on her hospital bed. LMA was placed and was secured. After adequate anesthesia, patient was transferred to a fracture table with all bony prominences being well-padded. A perineal post was placed to secure the patient on the table. We then applied a ski boot which was well-padded to the operative extremity. The well leg was dropped into extension and secured to the axial post of the fracture table with a pillow and Coban. The left arm was brought across patient's chest with a blanket on her chest. We then performed a closed reduction maneuver with external rotation, traction, internal rotation and adduction. Fluoroscopic images were obtained. Axial alignment appeared acceptable following closed reduction. There is a flexion deformity of the proximal segment which was unable to be reduced via closed manner. We then prepped and draped the left lower extremity in normal, sterile orthopedic fashion. A timeout was performed with all parties in attendance in agreement with the side, site, and operation be performed. 2 g Ancef was administered prior to incision. No concerns were voiced and we elected to proceed. I first used fluoroscopy to wes the level of the fracture and planned incision for insertion of the cephalomedullary nail device. In line with the long axis of the femur, 4 fingerbreadths proximal to the tip of the greater trochanter, a full-thickness skin incision was planned. I first turned my attention to reducing the proximal flexion segment. A stab incision was made along the anterior femoral neck. I bluntly dissected through the subcutaneous tissue and fascia down the level of the bone with a hemostat. A ball-spike pusher was used to place a anterior to posterior force along the femoral neck which anatomically reduced the proximal segment. Traction was reduced and this deformity was held well reduced with cortical contact. I then turned my attention to hip nail placement. Lateral skin was sharply incised with 10 blade scalpel, carried into the subcutaneous tissues. The IT band was encountered and split and planned trajectory of the nail placement. The greater trochanter was then able to be palpated digitally. I then placed a threaded guidewire just medial to the tip of the greater trochanter and in the anterior third of it on the lateral. I was unable to gain acceptable trajectory with a guidewire and switched to a cannulated awl. This was passed gently through the tip of the greater trochanter. I then placed a ball-tipped guidewire through the cannulated awl which achieved intramedullary placement. Opening reamer was then placed over top of the ball-tipped guidewire after the awl was removed. I then passed the ball-tipped guidewire down the level of the proximal pole of the patella. Depth gauge was used to plane the length of our nail. We used C arm to confirm our placement within the bone. Given her patulous intramedullary canal, I did not using flexible reaming. I selected our final nail size to be 380 mm in length and 10 mm diameter. Nail was assembled on the back table. We placed it over the ball-tipped guidewire and impacted to an appropriate depth. Rotation was confirmed on the lateral. Drill sleeve was placed through the targeting guide. I made a lateral incision in line with the planned trajectory of the lag screw. The flexion deformity of the proximal segment was again noted and I replaced the ball spike pusher with rastafarian of anatomic alignment. I had my service center assistant hold this ball spike pusher while I placed a drill pin for the lag screw. We drilled the pin for the lag screw at an appropriate position and depth, tip to apex distance less than 25 mm on AP and lateral combined. Depth gauge was used to measure the length of the screw, 95 mm. Prior to drilling, I applied a lateral translation of the femoral neck with a bone hook placed to the lag screw incision to better reduce the femoral neck. We then used the cannulated drill to drill to an appropriate depth. Drill was removed, drill pin left in place. Lag screw was placed over top of the drill pin and tightened to an appropriate depth. Setscrew was then placed and tightened, and then turned back a quarter turn to allow the lag screw to slide. I then turned my attention distally for interlocking screw placement. Perfect [place] technique was utilized. Lateral skin was incised in line with the perfect circles. I bluntly dissected down the level of the bone after incising the IT band sharply. I drilled bicortically for 2 interlocking screws. These were placed with excellent cortical fixation. Final fluoroscopic images were obtained of the distal femur. Insertion jig was then removed from the nail device. Final fluoroscopic images were obtained at the hip. We irrigated the wounds copiously with normal saline solution. Hemostasis was excellent at this point. We then closed the deeper layers, IT band with 0 Vicryl. Intradermal buried stitches of 2-0 Vicryl were utilized and skin finally reapproximated with skin francisco javier. Sterile compression dressing of Xeroform, 4 x 4's, and Tegaderm was applied. Patient tolerated procedure well without complication. She was transferred back to her hospital bed and subsequently to PACU in stable condition. Intraoperative medications: 2 g Ancef IV Post Operative Plan: Weightbearing: Weightbearing as tolerated left lower extremity with a walker Antibiotics: Ancef 1 g x 3 doses postoperatively, 1 dose given preoperatively DVT Prophylaxis: Lovenox to start tomorrow morning Gross: None Dressing: Dry sterile dressing changes as needed for saturation X-Rays: 2 weeks postop in the office Follow-up: 2 weeks post-operatively with me in the office
[2023-02-13] MEDS: Cefazolin 1 GM/50 ML BAG IV (21:10)
[2023-02-13] MEDS: Senna/Docusate Sodium 1 Tablet 2 TABLET PO (21:11)
[2023-02-14] VITALS (7 sets, daily range): BP systolic 106–150; BP diastolic 53–89; PULSE 86–94; RESP 16–18; TEMP 36.5–37.1; O2SAT 93–98
[2023-02-14] MEDS: Levothyroxine 75 MCG Tablet PO (05:27)
[2023-02-14] MEDS: Cefazolin 1 GM/50 ML BAG IV ×3 (05:27→22:51)
[2023-02-14] MEDS: Enoxaparin 40 MG/0.4 ML Syringe SC (05:27)
[2023-02-14 06:47] LABS: Absolute Lymphocyte Count 1.84 X10^3/uL (0.83-4.51); Absolute Neutrophil Count 12.6 X10^3/uL (2.0-7.7); Basophil# 0.03 X10^3/uL; Basophil% 0.2 % (0-1); Hematocrit 33.9 % (37-47); Hemoglobin 11.1 g/dL (12.0-15.0); Lymphocyte # 1.84 X10^3/ul (0.83-4.51); Lymphocyte % 12.1 % (19-41); Mean Corp Hgb Conc 32.7 g/dL (32-36); Mean Corpuscular Hgb 31.3 pg (27.0-32.0); Mean Corpuscular Volume 95.5 fL (81-99); Mean Platelet Vol. 10.7 fl (6.2-12.0); Monocyte# 0.71 X10^3/uL; Monocyte% 4.7 % (0-10); NRBC Flagged by Analyzer 0 % (0-5); Neutrophil # 12.55 X10^3/uL (2.7-7.7); Neutrophil % 82.4 % (47-70); Platelet Count 245 K/mm3 (150-450); RBC Distribution Width CV 12.7 % (11.6-14.6); RBC Distribution Width SD 43.9 fl (35.1-43.9); Red Blood Count 3.55 M/mm3 (4.2-5.4); White Blood Count 15.2 K/mm3 (4.4-11.0)
[2023-02-14 07:16] LABS: Anion Gap 10 (5-15); BUN 16 mg/dL (7-18); Calcium,Total 8.6 mg/dL (8.5-10.1); Chloride 100 mmol/L (98-107); Creatinine, Serum 1.14 mg/dL (0.55-1.02); EST Glomerular Filtration Rate 48 mL/min (>60); Est Glom Filt Rate - Afr Amer 58 mL/min (>60); Glucose 230 mg/dL (74-106); Potassium 4.2 mmol/L (3.5-5.1); Sodium Level 134 mmol/L (136-145)
--- NOTE | 2023-02-14 07:21 | PCM.PN.ORT ---
Subjective Subjective Patient seen and examined. Denies significant pain. Up to chair this morning. Denies fevers, chills, nausea or vomiting, chest pain or shortness of breath. Tolerating p.o. intake. Objective Data Objective Data Vital Signs: Vital Signs Temp Pulse Resp BP Pulse Ox O2 Del Method O2 Flow Rate 97.8 F 87 16 150/89 H 98 Nasal Cannula 2 02/14/23 04:15 02/14/23 04:15 02/14/23 04:15 02/14/23 04:15 02/14/23 04:15 02/14/23 04:15 02/14/23 04:15 Oxygen Flow Rate (L/min) 2 Oxygen Delivery Method Nasal Cannula Weight: 164 lb 14.492 oz Body Mass Index (BMI) 29.2 Intake & Output: Intake and Output for Last 24 Hours 02/12/23 02/13/23 02/14/23 23:59 23:59 23:59 Intake Total 2850 / 2850 750 / 750 Output Total 1750 / 1750 800 / 800 Balance 1100 / 1100 -50 / -50 Lab / Micro Data Result Diagrams: 02/14/23 05:55 02/14/23 05:55 Labs: Laboratory Results - last 24 hr 02/13/23 06:05: TSH 1.40 02/13/23 06:05: Blood Type A POSITIVE, Antibody Screen NEGATIVE 02/14/23 05:55: WBC 15.2 H, RBC 3.55 L, Hgb 11.1 L, Hct 33.9 L, MCV 95.5, MCH 31.3, MCHC 32.7, RDW Std Deviation 43.9, RDW Coeff of Marguerite 12.7, Plt Count 245, MPV 10.7, Immature Gran % (Auto) 0.600, Neut % (Auto) 82.4 H, Lymph % (Auto) 12.1 L, [place] % (Auto) 4.7, Eos % (Auto) 0.0, Baso % (Auto) 0.2, Absolute Neuts (auto) 12.6 H, Absolute Lymphs (auto) 1.84, Nucleated RBC % 0 02/14/23 05:55: Sodium 134 L, Potassium 4.2, Chloride 100, Carbon Dioxide 24.0, Anion Gap 10, BUN 16, Creatinine 1.14 H, Estim Creat Clear Calc 29.30, Est GFR (MDRD) Af Amer 58 L, Est GFR (MDRD) Non-Af 48 L, BUN/Creatinine Ratio 14.0, Glucose 230 H, Calcium 8.6 Radiography Diagnostic Testing: Radiology Impression Knee X-Ray 02/13/23 07:35 IMPRESSION: Degenerative arthrosis. Electronically Signed: Jimenez Fuentes MD at 12:10 EDT , Physical Exam Narrative General - A&Ox3, NAD. VSS/AF Left lower extremity -minimal serosanguineous drainage proximally, otherwise incisional dressings C/D/I. SILT Sural, Saphenous, SPN, DPN, Tibial N. distributions. DP, PT 2+. BCR. DF, PF, EHL 5/5. No calf TTP. Assessment & Plan Assessment/Plan (1) Closed intertrochanteric fracture of left femur: PLAN: POD#1 s/p left femur CMN - Patient doing well this morning. Hemoglobin stable. Continue to mobilize with therapy. Discontinue Gross today. - Pain control - Medicine following for medical management - PT/OT-weightbearing as tolerated left lower extremity - DVT PPX -Loverosex, Ian, MICHELLE gilbert, early mobilization - Case management - D/C planning.
[2023-02-14] MEDS: Lisinopril 20 MG Tablet PO (07:46)
[2023-02-14] MEDS: Senna/Docusate Sodium 1 Tablet 2 TABLET PO (07:46)
[2023-02-14] MEDS: Calcium Carbonate 500 MG Tablet PO ×3 (07:47→17:19)
[2023-02-14] MEDS: Acetaminophen 325 MG Tablet 650 MG PO ×2 (07:53→15:03)
--- NOTE | 2023-02-14 10:00 | PCM.PN.HOSP ---
Reason for Visit Reason for Visit: Diagnoses Hypothyroidism, unspecified (02/12/23) Essential (primary) hypertension (02/12/23) Displaced intertrochanteric fracture of left femur, initial encounter for closed fracture (02/12/23) Subjective Subjective Reports feeling fairly well today without significant pain despite not taking any pain medication. Patient insistent she will be discharged home today and that she feels well and has a bedroom and bathroom on the first floor and has people that would be able to help her. Objective Data Objective Data Vital Signs: Vital Signs Temp Pulse Resp BP Pulse Ox O2 Del Method O2 Flow Rate 97.7 F L 89 18 123/61 H 96 Room Air 2 02/14/23 07:49 02/14/23 07:49 02/14/23 07:49 02/14/23 07:49 02/14/23 09:50 02/14/23 09:50 02/14/23 04:15 Oxygen Flow Rate (L/min) 2 Oxygen Delivery Method Room Air Weight: 74.8 kg Body Mass Index (BMI) 29.2 Intake & Output: Intake and Output for Last 24 Hours 02/12/23 02/13/23 02/14/23 23:59 23:59 23:59 Intake Total 2850 / 2850 750 / 750 Output Total 1750 / 1750 800 / 800 Balance 1100 / 1100 -50 / -50 Lab / Micro Data Result Diagrams: 02/14/23 05:55 02/14/23 05:55 Labs: Laboratory Results - last 24 hr 02/14/23 05:55: WBC 15.2 H, RBC 3.55 L, Hgb 11.1 L, Hct 33.9 L, MCV 95.5, MCH 31.3, MCHC 32.7, RDW Std Deviation 43.9, RDW Coeff of Marguerite 12.7, Plt Count 245, MPV 10.7, Immature Gran % (Auto) 0.600, Neut % (Auto) 82.4 H, Lymph % (Auto) 12.1 L, [place] % (Auto) 4.7, Eos % (Auto) 0.0, Baso % (Auto) 0.2, Absolute Neuts (auto) 12.6 H, Absolute Lymphs (auto) 1.84, Nucleated RBC % 0 02/14/23 05:55: Sodium 134 L, Potassium 4.2, Chloride 100, Carbon Dioxide 24.0, Anion Gap 10, BUN 16, Creatinine 1.14 H, Estim Creat Clear Calc 29.30, Est GFR (MDRD) Af Amer 58 L, Est GFR (MDRD) Non-Af 48 L, BUN/Creatinine Ratio 14.0, Glucose 230 H, Calcium 8.6 Radiography Diagnostic Testing: Radiology Impression Knee X-Ray 02/13/23 07:35 IMPRESSION: Degenerative arthrosis. Electronically Signed: Jimenez Fuentes MD at 12:10 EDT , Physical Exam Narrative General: Alert, oriented, no apparent distress HEENT: Atraumatic, normocephalic Eyes: Anicteric, normal conjunctiva, extraocular movements grossly intact Neck: Supple Respiratory: Clear to auscultation bilaterally, normal respiratory effort Cardiovascular: Regular rate and rhythm GI: Soft, nontender, nondistended Extremities: No edema Musculoskeletal: Sitting up in chair moving both extremities Neuro: No overt focal neurological deficits Skin: No rashes appreciated Psych: Cooperative Assessment & Plan Assessment/Plan (1) Closed intertrochanteric fracture of left femur: PLAN: Plan #Comminuted intertrochanteric fracture of the left femur -Seen on hip and pelvis x-ray. Pain control -Orthopedic surgery consulted -Patient to proceed for surgery -Plan for surgery later today -02/14: Postop day 1 from left femur CMN. PT to evaluate today. Patient insistent that she feels well and will be going home today. 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 If patient leaves today can likely have labs checked as an outpatient #Hypothyroidism -Continue Synthroid #DVT prophylaxis: Lovenox Charges/Coding Visit Charges Inpatient E&M: 14645 Subs Hosp L2
[2023-02-14] MEDS: Lactated Ringers 1,000 ML 60 ML IV (11:27)
--- NOTE | 2023-02-14 17:15 | CASEMGMT ---
Social Work Note IMANI met with patient and introduced herself and role as [facility] Primary Operator. Patient was laying in bed and agreeable to speak with SW. SW inquired about patient's discharge plans and interest in [facility]. Patient explained her granddaughter works at [facility] so it is the only SNF she would consider going. Patient explained she isn't' sure if it's possible with her insurance. SW explained the referral process including SW following up on Thursday to continue to assist with discharge plan; patient in agreement with SW sending referral to [facility]. SW then inquired about AD. Patient reports she does not have advanced directives, but her son Ever assists with her financial needs. Patient declined to complete AD as she feels her children know her wishes. No other needs voiced. IMANI sent referral to [facility] via [employer]. IMANI updated furniture packer of referral sent to [facility]. Plan: [facility] reviewing patient's insurance for acceptance Lexi GARCIA, [place]
[2023-02-14] MEDS: Morphine 4 MG/ML Syringe IV (22:51)
[2023-02-15 03:38] VITALS: BP 138/78; PULSE 86; RESP 18; TEMP 36.8; O2SAT 93
[2023-02-15] MEDS: Cefazolin 1 GM/50 ML BAG IV ×3 (05:57→21:01)
[2023-02-15] MEDS: Enoxaparin 40 MG/0.4 ML Syringe SC (05:57)
[2023-02-15] MEDS: Levothyroxine 75 MCG Tablet PO (05:57)
[2023-02-15 06:25] LABS: Absolute Lymphocyte Count 2.01 X10^3/uL (0.83-4.51); Absolute Neutrophil Count 8.3 X10^3/uL (2.0-7.7); Basophil# 0.03 X10^3/uL; Basophil% 0.3 % (0-1); Eosinophil# 0.05 X10^3/uL; Eosinophils% 0.4 % (0-5); Hemoglobin 9.2 g/dL (12.0-15.0); Lymphocyte # 2.01 X10^3/ul (0.83-4.51); Lymphocyte % 17.8 % (19-41); Mean Corp Hgb Conc 32.9 g/dL (32-36); Mean Corpuscular Hgb 31.3 pg (27.0-32.0); Mean Corpuscular Volume 95.2 fL (81-99); Mean Platelet Vol. 11.1 fl (6.2-12.0); Monocyte# 0.86 X10^3/uL; Monocyte% 7.6 % (0-10); NRBC Flagged by Analyzer 0 % (0-5); Neutrophil # 8.29 X10^3/uL (2.7-7.7); Neutrophil % 73.4 % (47-70); Platelet Count 191 K/mm3 (150-450); RBC Distribution Width CV 12.7 % (11.6-14.6); RBC Distribution Width SD 44.1 fl (35.1-43.9); Red Blood Count 2.94 M/mm3 (4.2-5.4); White Blood Count 11.3 K/mm3 (4.4-11.0)
[2023-02-15] MEDS: Acetaminophen 325 MG Tablet 650 MG PO ×2 (06:43→20:44)
[2023-02-15 06:53] LABS: Anion Gap 5 (5-15); BUN 18 mg/dL (7-18); BUN/Creat Ratio 31.6 RATIO (10-20); Calcium,Total 8.4 mg/dL (8.5-10.1); Chloride 104 mmol/L (98-107); Creatinine, Serum 0.57 mg/dL (0.55-1.02); EST Glomerular Filtration Rate 107 mL/min (>60); Est Glom Filt Rate - Afr Amer 129 mL/min (>60); Estimated Creatinine Clearance 33.41 ml/min; Glucose 158 mg/dL (74-106); Potassium 3.5 mmol/L (3.5-5.1); Sodium Level 140 mmol/L (136-145)
[2023-02-15 07:36] VITALS: O2SAT 93
[2023-02-15] MEDS: amLODIPine 5 MG Tablet PO (08:03)
[2023-02-15] MEDS: Senna/Docusate Sodium 1 Tablet 2 TABLET PO ×2 (08:03→20:44)
[2023-02-15] MEDS: Calcium Carbonate 500 MG Tablet PO ×3 (08:03→17:05)
[2023-02-15 08:30] VITALS: BP 148/59; PULSE 81; RESP 18; TEMP 36.9; O2SAT 93
--- NOTE | 2023-02-15 09:00 | PN.HOSP_ITS ---
Reason for Visit Reason for Visit: Diagnoses Hypothyroidism, unspecified (02/12/23) Essential (primary) hypertension (02/12/23) Displaced intertrochanteric fracture of left femur, initial encounter for closed fracture (02/12/23) Subjective Subjective Reports some cramping in her leg today and that she took Tylenol earlier due to the discomfort. Feels she worked well with physical therapy. Endorses she would still prefer to go home but is open to discussing going to [facility]. Reports she is urinating well and had a bowel movement. Did not endorse any other complaints Objective Data Objective Data Vital Signs: Vital Signs Temp Pulse Resp BP Pulse Ox O2 Del Method O2 Flow Rate 98.3 F 86 18 138/78 H 93 Room Air 1 02/15/23 03:38 02/15/23 03:38 02/15/23 03:38 02/15/23 03:38 02/15/23 07:36 02/15/23 07:36 02/14/23 10:31 Oxygen Flow Rate (L/min) 1 Oxygen Delivery Method Room Air Weight: 74.8 kg Body Mass Index (BMI) 29.2 Intake & Output: Intake and Output for Last 24 Hours 02/13/23 02/14/23 02/15/23 23:59 23:59 23:59 Intake Total 2850 / 2850 2586 / 2886 1550 / 1550 Output Total 1750 / 1750 1000 / 1000 500 / 500 Balance 1100 / 1100 1586 / 1886 1050 / 1050 Lab / Micro Data Result Diagrams: 02/15/23 05:30 02/15/23 05:30 Labs: Laboratory Results - last 24 hr 02/15/23 05:30: WBC 11.3 H, RBC 2.94 L, Hgb 9.2 L, Hct 28.0 L, MCV 95.2, MCH 31.3, MCHC 32.9, RDW Std Deviation 44.1 H, RDW Coeff of Marguerite 12.7, Plt Count 191, MPV 11.1, Immature Gran % (Auto) 0.500, Neut % (Auto) 73.4 H, Lymph % (Auto) 17.8 L, [place] % (Auto) 7.6, Eos % (Auto) 0.4, Baso % (Auto) 0.3, Absolute Neuts (auto) 8.3 H, Absolute Lymphs (auto) 2.01, Nucleated RBC % 0 02/15/23 05:30: Sodium 140, Potassium 3.5, Chloride 104, Carbon Dioxide 31.0, Anion Gap 5, BUN 18, Creatinine 0.57, Estim Creat Clear Calc 33.41, Est GFR (MDRD) Af Amer 129, Est GFR (MDRD) Non-Af 107, BUN/Creatinine Ratio 31.6 H, Glucose 158 H, Calcium 8.4 L Radiography Diagnostic Testing: Radiology Impression Hip X-Ray 02/13/23 16:30 IMPRESSION: 1. Multiple intraoperative images submitted for intramedullary fixation of a proximal femur fracture. 2. Please see surgical report for full details. Electronically Signed: Kalia Pritchett MD at 0:15 EDT , Physical Exam Narrative General: Alert, oriented, no apparent distress HEENT: Atraumatic, normocephalic Eyes: Anicteric, normal conjunctiva, extraocular movements grossly intact Neck: Supple Respiratory: Clear to auscultation bilaterally, normal respiratory effort Cardiovascular: Regular rate and rhythm GI: Soft, nontender, nondistended Extremities: No edema Musculoskeletal: Moving all extremities Neuro: No overt focal neurological deficits Skin: No rashes appreciated Psych: Cooperative Assessment & Plan Assessment/Plan (1) Closed intertrochanteric fracture of left femur: PLAN: Plan #Comminuted intertrochanteric fracture of the left femur -Seen on hip and pelvis x-ray. Pain control -Orthopedic surgery consulted -Patient to proceed for surgery -Plan for surgery later today -02/14: Postop day 1 from left femur CMN. PT to evaluate today. Patient insiste nt that she feels well and will be going home today. Awaiting PT evaluation -02/15: PT recommended further rehab, patient open to considering [facility], unclear if this is in her network but social work discussed with her yesterday and advised that tomorrow this can be further looked into. That is the only place at this moment she is willing to go as her granddaughter works there. Still would prefer to go home but is weak and lives alone, would greatly benefit from rehab prior to home-going. On discharge she will need to follow-up with Dr. Andrews in 2 weeks in the office with x-rays #Anemia -Hemoglobin on presentation was 14.7 and the following day 11.7, 11.1 on day of surgery but on 02/15 was 9.2. No overt signs or symptoms of bleeding -At least in part is delusional given creatinine went from 1.14 down to 0.57 and all cell lines on CBC decreased today. 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 If patient leaves today can likely have labs checked as an outpatient -02/15: BP improving #Hypothyroidism -Continue Synthroid #DVT prophylaxis: Lovenox Charges/Coding Visit Charges Inpatient E&M: 59187 Subs Hosp L2
--- NOTE | 2023-02-15 11:52 | PN.ORTHO_ITS ---
Subjective Subjective Patient seen and examined. Reports some cramping this morning in her left leg, since resolved since been out of bed. Denies any new complaints otherwise. Denies fevers, chills, nausea vomiting, chest pain or shortness of breath. Patient in agreement with longterm facility placement. Objective Data Objective Data Vital Signs: Vital Signs Temp Pulse Resp BP Pulse Ox O2 Del Method O2 Flow Rate 98.4 F 81 18 148/59 H 93 Room Air 1 02/15/23 08:30 02/15/23 08:30 02/15/23 08:30 02/15/23 08:30 02/15/23 08:30 02/15/23 08:30 02/14/23 10:31 Oxygen Flow Rate (L/min) 1 Oxygen Delivery Method Room Air Weight: 164 lb 14.492 oz Body Mass Index (BMI) 29.2 Intake & Output: Intake and Output for Last 24 Hours 02/13/23 02/14/23 02/15/23 23:59 23:59 23:59 Intake Total 2850 / 2850 2586 / 2886 1550 / 1550 Output Total 1750 / 1750 1000 / 1000 500 / 500 Balance 1100 / 1100 1586 / 1886 1050 / 1050 Lab / Micro Data Attestation: I reviewed the patient's lab results. Result Diagrams: 02/15/23 05:30 02/15/23 05:30 Labs: Laboratory Results - last 24 hr 02/15/23 05:30: WBC 11.3 H, RBC 2.94 L, Hgb 9.2 L, Hct 28.0 L, MCV 95.2, MCH 31.3, MCHC 32.9, RDW Std Deviation 44.1 H, RDW Coeff of Marguerite 12.7, Plt Count 191, MPV 11.1, Immature Gran % (Auto) 0.500, Neut % (Auto) 73.4 H, Lymph % (Auto) 17.8 L, [place] % (Auto) 7.6, Eos % (Auto) 0.4, Baso % (Auto) 0.3, Absolute Neuts (auto) 8.3 H, Absolute Lymphs (auto) 2.01, Nucleated RBC % 0 02/15/23 05:30: Sodium 140, Potassium 3.5, Chloride 104, Carbon Dioxide 31.0, Anion Gap 5, BUN 18, Creatinine 0.57, Estim Creat Clear Calc 33.41, Est GFR (MDRD) Af Amer 129, Est GFR (MDRD) Non-Af 107, BUN/Creatinine Ratio 31.6 H, Glucose 158 H, Calcium 8.4 L Radiography Diagnostic Testing: Radiology Impression Hip X-Ray 02/13/23 16:30 IMPRESSION: 1. Multiple intraoperative images submitted for intramedullary fixation of a proximal femur fracture. 2. Please see surgical report for full details. Electronically Signed: Kalia Pritchett MD at 0:15 EDT , Physical Exam Narrative General - A&Ox3, NAD. VSS/AF Left lower extremity -serosanguineous drainage proximally, otherwise incisional dressings C/D/I. SILT Sural, Saphenous, SPN, DPN, Tibial N. distributions. DP, PT 2+. BCR. DF, PF, EHL 5/5. No calf TTP. Assessment & Plan Assessment/Plan (1) Closed intertrochanteric fracture of left femur: PLAN: POD#2 s/p left femur CMN - Patient doing well this morning. Acute blood loss anemia noted, suspect to be somewhat dilutional without overt signs of bleeding. Continue to mobilize with therapy. - Pain control - Medicine following for medical management - PT/OT-weightbearing as tolerated left lower extremity - DVT PPX -Lovenox x 4 weeks postop, Ian, MICHELLE gilbert, early mobilization - Case management - D/C planning. SNF placement pending. Patient stable from orthopedic standpoint. Okay for discharge to [facility] when approved from my standpoint. Plan to follow-up approximately 2 weeks status post surgery. Dry sterile dressing changes daily. Okay to leave open to air after postoperative day #7 if no drainage. X-rays and staple removal at time of first follow-up. Continue Lovenox postoperatively x4 weeks. Weight-bear as tolerated left lower extremity with a walker. Please do not hesitate to call if any questions or concerns arise.
[2023-02-15] MEDS: oxyCODONE 5 MG Tablet PO ×2 (13:48→20:43)
[2023-02-15 14:19] LABS: Absolute Lymphocyte Count 2.23 X10^3/uL (0.83-4.51); Absolute Neutrophil Count 9.6 X10^3/uL (2.0-7.7); Basophil# 0.06 X10^3/uL; Basophil% 0.5 % (0-1); Eosinophil# 0.12 X10^3/uL; Eosinophils% 0.9 % (0-5); Hematocrit 29.4 % (37-47); Hemoglobin 9.3 g/dL (12.0-15.0); Lymphocyte # 2.23 X10^3/ul (0.83-4.51); Lymphocyte % 17.3 % (19-41); Mean Corp Hgb Conc 31.6 g/dL (32-36); Mean Corpuscular Hgb 30.8 pg (27.0-32.0); Mean Corpuscular Volume 97.4 fL (81-99); Mean Platelet Vol. 10.9 fl (6.2-12.0); Monocyte# 0.78 X10^3/uL; Monocyte% 6.1 % (0-10); NRBC Flagged by Analyzer 0 % (0-5); Neutrophil # 9.61 X10^3/uL (2.7-7.7); Neutrophil % 74.7 % (47-70); Platelet Count 222 K/mm3 (150-450); RBC Distribution Width CV 12.9 % (11.6-14.6); RBC Distribution Width SD 45.9 fl (35.1-43.9); Red Blood Count 3.02 M/mm3 (4.2-5.4); White Blood Count 12.9 K/mm3 (4.4-11.0)
[2023-02-15 14:55] VITALS: BP 120/98; PULSE 83; RESP 18; TEMP 36.8; O2SAT 94
--- NOTE | 2023-02-15 14:56 | NURSING ---
This Nurse walked into pts room and she said my son gave me a nerve pill for my hip spasms. Pt had pill bottle sitting on overside table. This nurse found pill to be levothyroxine explained to patient and son pt cannot take meds brought in from home. Removed levothyroxine bottle from pts table.
[2023-02-15] MEDS: MELATONIN 3 MG TABLET PO (20:44)
[2023-02-15 20:50] VITALS: O2SAT 88
[2023-02-15 21:00] VITALS: BP 151/74; PULSE 90; RESP 18; TEMP 37.2; O2SAT 93
[2023-02-15] MEDS: 0.9% Saline Lock 10 ML Syringe IV (21:01)
[2023-02-16] MEDS: oxyCODONE 5 MG Tablet PO ×2 (04:33→09:06)
[2023-02-16] MEDS: Acetaminophen 325 MG Tablet 650 MG PO (04:33)
[2023-02-16] MEDS: Cefazolin 1 GM/50 ML BAG IV (04:34)
[2023-02-16] MEDS: Levothyroxine 75 MCG Tablet PO (04:34)
[2023-02-16] MEDS: 0.9% Saline Lock 10 ML Syringe IV (04:34)
[2023-02-16] MEDS: Enoxaparin 40 MG/0.4 ML Syringe SC (04:34)
[2023-02-16 04:40] VITALS: BP 154/77; PULSE 92; RESP 16; TEMP 36.9; O2SAT 94
[2023-02-16 06:34] LABS: Absolute Lymphocyte Count 2.26 X10^3/uL (0.83-4.51); Absolute Neutrophil Count 6.4 X10^3/uL (2.0-7.7); Basophil# 0.04 X10^3/uL; Basophil% 0.4 % (0-1); Eosinophil# 0.21 X10^3/uL; Eosinophils% 2.2 % (0-5); Hematocrit 27.8 % (37-47); Hemoglobin 9.1 g/dL (12.0-15.0); Lymphocyte # 2.26 X10^3/ul (0.83-4.51); Lymphocyte % 23.5 % (19-41); Mean Corp Hgb Conc 32.7 g/dL (32-36); Mean Corpuscular Hgb 31.5 pg (27.0-32.0); Mean Corpuscular Volume 96.2 fL (81-99); Mean Platelet Vol. 10.8 fl (6.2-12.0); Monocyte# 0.59 X10^3/uL; Monocyte% 6.1 % (0-10); NRBC Flagged by Analyzer 0 % (0-5); Neutrophil # 6.43 X10^3/uL (2.7-7.7); Neutrophil % 67.1 % (47-70); Platelet Count 211 K/mm3 (150-450); RBC Distribution Width CV 12.8 % (11.6-14.6); RBC Distribution Width SD 44.8 fl (35.1-43.9); Red Blood Count 2.89 M/mm3 (4.2-5.4); White Blood Count 9.6 K/mm3 (4.4-11.0)
[2023-02-16 06:58] LABS: Anion Gap 5 (5-15); BUN 17 mg/dL (7-18); BUN/Creat Ratio 24.7 RATIO (10-20); Calcium,Total 8.1 mg/dL (8.5-10.1); Chloride 104 mmol/L (98-107); Creatinine, Serum 0.69 mg/dL (0.55-1.02); EST Glomerular Filtration Rate 86 mL/min (>60); Est Glom Filt Rate - Afr Amer 104 mL/min (>60); Estimated Creatinine Clearance 33.41 ml/min; Glucose 178 mg/dL (74-106); Potassium 3.5 mmol/L (3.5-5.1); Sodium Level 140 mmol/L (136-145)
[2023-02-16] MEDS: Calcium Carbonate 500 MG Tablet PO ×2 (07:49→17:17)
[2023-02-16] MEDS: Senna/Docusate Sodium 1 Tablet 2 TABLET PO (09:07)
[2023-02-16] MEDS: amLODIPine 5 MG Tablet PO (09:07)
--- NOTE | 2023-02-16 09:23 | PN.HOSP_ITS ---
Reason for Visit Reason for Visit: Diagnoses Hypothyroidism, unspecified (02/12/23) Essential (primary) hypertension (02/12/23) Displaced intertrochanteric fracture of left femur, initial encounter for closed fracture (02/12/23) Subjective Subjective Patient is an 87-year-old lady who presented with left hip pain following a fall found to have comminuted intertrochanteric fracture of the left femur fracture. Patient underwent ORIF on 02/13/2023 Objective Data Objective Data Vital Signs: Vital Signs Temp Pulse Resp BP Pulse Ox O2 Del Method O2 Flow Rate 98.5 F 92 16 154/77 H 94 Nasal Cannula 2 02/16/23 04:40 02/16/23 04:40 02/16/23 04:40 02/16/23 04:40 02/16/23 04:40 02/16/23 04:40 02/16/23 04:40 Oxygen Flow Rate (L/min) 2 Oxygen Delivery Method Nasal Cannula Weight: 74.8 kg Body Mass Index (BMI) 29.2 Intake & Output: Intake and Output for Last 24 Hours 02/14/23 02/15/23 02/16/23 23:59 23:59 23:59 Intake Total 2586 / 2886 2295.5 / 2295.5 56.5 / 56.5 Output Total 1000 / 1000 500 / 500 200 / 200 Balance 1586 / 1886 1795.5 / 1795.5 -143.5 / -143.5 Lab / Micro Data Result Diagrams: 02/16/23 05:48 02/16/23 05:48 Labs: Laboratory Results - last 24 hr 02/15/23 14:05: WBC 12.9 H, RBC 3.02 L, Hgb 9.3 L, Hct 29.4 L, MCV 97.4, MCH 30.8, MCHC 31.6 L, RDW Std Deviation 45.9 H, RDW Coeff of Marguerite 12.9, Plt Count 222, MPV 10.9, Immature Gran % (Auto) 0.500, Neut % (Auto) 74.7 H, Lymph % (Auto) 17.3 L, [place] % (Auto) 6.1, Eos % (Auto) 0.9, Baso % (Auto) 0.5, Absolute Neuts (auto) 9.6 H, Absolute Lymphs (auto) 2.23, Nucleated RBC % 0 02/16/23 05:48: WBC 9.6, RBC 2.89 L, Hgb 9.1 L, Hct 27.8 L, MCV 96.2, MCH 31.5, MCHC 32.7, RDW Std Deviation 44.8 H, RDW Coeff of Marguerite 12.8, Plt Count 211, MPV 10.8, Immature Gran % (Auto) 0.700, Neut % (Auto) 67.1, Lymph % (Auto) 23.5, [place] % (Auto) 6.1, Eos % (Auto) 2.2, Baso % (Auto) 0.4, Absolute Neuts (auto) 6.4, Absolute Lymphs (auto) 2.26, Nucleated RBC % 0 02/16/23 05:48: Sodium 140, Potassium 3.5, Chloride 104, Carbon Dioxide 31.0, Anion Gap 5, BUN 17, Creatinine 0.69, Estim Creat Clear Calc 33.41, Est GFR (MDRD) Af Amer 104, Est GFR (MDRD) Non-Af 86, BUN/Creatinine Ratio 24.7 H, Glucose 178 H, Calcium 8.1 L Physical Exam Narrative GENERAL: cooperative HEENT: Atraumatic; normocephalic EYES; Anicteric, Normal Conjunctiva NECK; supple, normal thyroid, RESPIRATORY: Diminished to auscultation CARDIOVASCULAR: Regular S1 S2, GI: soft, normoactive bowel sounds, : No Renal angle tenderness; EXTREMITIES: No edema, no clubbing, MUSCULOSKELETAL: no muscle wasting NEURO: Awake; no lateralizing signs. SKIN: No Rash PSYCH; Flat affect Assessment & Plan Assessment/Plan (1) Closed intertrochanteric fracture of left femur: PLAN: Plan Patient is an 87-year-old lady who presented with left hip pain following a fall found to have comminuted intertrochanteric fracture of the left femur fracture. Patient underwent ORIF on 02/13/2023 1. Fall with Comminuted intertrochanteric fracture of the left femur ?Patient underwent reatment of intertrochanteric hip fracture with intramedullary nail left femur on 02/13/[address] Andrews. 2. Physical deconditioning secondary to above - Requested for PT OT eval and social services designee to assist with discharge planning 3. 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 Hypertension - Blood pressure controlled, home medications continued with dose adjustment as needed 5. Hypothyroidism - Patient is on levothyroxine home dose continued 6. DVT prophylaxis - On enoxaparin Time spent in the patient's overall evaluation,decision-making process, review of diagnostic data, adjustment of management, discussion with other providers, nursing nursing and ancillary staff involved in patient's care documentation, 38 Minutes Charges/Coding Visit Charges Inpatient E&M: 35274 [facility] Hosp L2
[2023-02-16] MEDS: Acetaminophen 500 MG Tablet 1000 MG PO ×3 (10:36→23:01)
--- NOTE | 2023-02-16 10:37 | CASEMGMT ---
Addendum entered by Trina Moss 02/16/23 15:09: SW checked back in with [facility]. Eunice informed pt has been accepted at [facility]. Precert to be started today. SW updated pt on acceptance and informed will just have to wait on insurance auth now. Pt voiced understanding. PLAN: TCU, pending precert. Original Note: Social work SW informed by MD Nolasco this morning during rounds that pt has requested TCU as discharge plan rather than [facility]. SW in to speak to pt. SW introduced self and role at the hospital. Pt confirmed TCU would be first choice. SW sent referral to [facility]. Will await determination. PLAN: TCU, pending acceptance and precert [facility]
[2023-02-16 10:40] VITALS: BP 123/61; PULSE 81; RESP 18; TEMP 36.6; O2SAT 97
[2023-02-16 12:36] VITALS: BP 146/65; PULSE 85; RESP 18; TEMP 36.6; O2SAT 98
--- NOTE | 2023-02-16 12:36 | NURSING ---
pt refusing lunch states got breakfast late and I am not hungry offerred pt ensure and she states not now
[2023-02-16 19:47] VITALS: BP 141/53; PULSE 74; RESP 18; TEMP 36.6; O2SAT 96
[2023-02-17 02:47] VITALS: BP 144/74; PULSE 94; RESP 18; TEMP 36.6; O2SAT 94
[2023-02-17] MEDS: Acetaminophen 500 MG Tablet 1000 MG PO ×3 (06:25→17:46)
[2023-02-17] MEDS: Enoxaparin 40 MG/0.4 ML Syringe SC (06:25)
[2023-02-17] MEDS: Levothyroxine 75 MCG Tablet PO (06:25)
[2023-02-17 06:44] LABS: Absolute Lymphocyte Count 1.89 X10^3/uL (0.83-4.51); Absolute Neutrophil Count 5.9 X10^3/uL (2.0-7.7); Basophil# 0.06 X10^3/uL; Basophil% 0.7 % (0-1); Eosinophil# 0.36 X10^3/uL; Hematocrit 28.3 % (37-47); Hemoglobin 9.1 g/dL (12.0-15.0); Lymphocyte # 1.89 X10^3/ul (0.83-4.51); Lymphocyte % 20.9 % (19-41); Mean Corp Hgb Conc 32.2 g/dL (32-36); Mean Corpuscular Hgb 30.7 pg (27.0-32.0); Mean Corpuscular Volume 95.6 fL (81-99); Mean Platelet Vol. 10.5 fl (6.2-12.0); Monocyte# 0.72 X10^3/uL; NRBC Flagged by Analyzer 0.4 % (0-5); Neutrophil # 5.93 X10^3/uL (2.7-7.7); Neutrophil % 65.4 % (47-70); Platelet Count 253 K/mm3 (150-450); RBC Distribution Width CV 12.9 % (11.6-14.6); RBC Distribution Width SD 44.2 fl (35.1-43.9); Red Blood Count 2.96 M/mm3 (4.2-5.4); White Blood Count 9.1 K/mm3 (4.4-11.0)
[2023-02-17 07:20] LABS: Anion Gap 3 (5-15); BUN 16 mg/dL (7-18); BUN/Creat Ratio 27.1 RATIO (10-20); Calcium,Total 8.2 mg/dL (8.5-10.1); Chloride 105 mmol/L (98-107); Creatinine, Serum 0.59 mg/dL (0.55-1.02); EST Glomerular Filtration Rate 103 mL/min (>60); Est Glom Filt Rate - Afr Amer 124 mL/min (>60); Estimated Creatinine Clearance 33.41 ml/min; Glucose 166 mg/dL (74-106); Potassium 3.6 mmol/L (3.5-5.1); Sodium Level 140 mmol/L (136-145)
--- NOTE | 2023-02-17 07:32 | PCM.PN.HOSP ---
Reason for Visit Reason for Visit: Diagnoses Hypothyroidism, unspecified (02/12/23) Essential (primary) hypertension (02/12/23) Displaced intertrochanteric fracture of left femur, initial encounter for closed fracture (02/12/23) Subjective Subjective Patient seen complains of spasms in lower extremities. Awaiting insurance precertification prior to transfer to correction facility Objective Data Objective Data Vital Signs: Vital Signs Temp Pulse Resp BP Pulse Ox O2 Del Method O2 Flow Rate 98 F 94 18 144/74 H 94 Room Air 2 02/17/23 02:47 02/17/23 02:47 02/17/23 02:47 02/17/23 02:47 02/17/23 02:47 02/17/23 02:47 02/16/23 04:40 Oxygen Flow Rate (L/min) 2 Oxygen Delivery Method Room Air Weight: 74.8 kg Body Mass Index (BMI) 29.2 Intake & Output: Intake and Output for Last 24 Hours 02/15/23 02/16/23 02/17/23 23:59 23:59 23:59 Intake Total 2295.5 / 2295.5 656.5 / 856.5 300 / 300 Output Total 500 / 500 500 / 500 500 / 500 Balance 1795.5 / 1795.5 156.5 / 356.5 -200 / -200 Lab / Micro Data Result Diagrams: 02/17/23 06:15 02/17/23 06:15 Labs: Laboratory Results - last 24 hr 02/17/23 06:15: WBC 9.1, RBC 2.96 L, Hgb 9.1 L, Hct 28.3 L, MCV 95.6, MCH 30.7, MCHC 32.2, RDW Std Deviation 44.2 H, RDW Coeff of Marguerite 12.9, Plt Count 253, MPV 10.5, Immature Gran % (Auto) 1.000 H, Neut % (Auto) 65.4, Lymph % (Auto) 20.9, [place] % (Auto) 8.0, Eos % (Auto) 4.0, Baso % (Auto) 0.7, Absolute Neuts (auto) 5.9, Absolute Lymphs (auto) 1.89, Nucleated RBC % 0.4 02/17/23 06:15: Sodium 140, Potassium 3.6, Chloride 105, Carbon Dioxide 32.0, Anion Gap 3 L, BUN 16, Creatinine 0.59, Estim Creat Clear Calc 33.41, Est GFR (MDRD) Af Amer 124, Est GFR (MDRD) Non-Af 103, BUN/Creatinine Ratio 27.1 H, Glucose 166 H, Calcium 8.2 L Physical Exam Narrative GENERAL: cooperative HEENT: Atraumatic; normocephalic EYES; Anicteric, Normal Conjunctiva NECK; supple, normal thyroid, RESPIRATORY: Diminished to auscultation CARDIOVASCULAR: Regular S1 S2, GI: soft, normoactive bowel sounds, : No Renal angle tenderness; EXTREMITIES: No edema, no clubbing, MUSCULOSKELETAL: no muscle wasting NEURO: Awake; no lateralizing signs. SKIN: No Rash PSYCH; Flat affect Assessment & Plan Assessment/Plan (1) Closed intertrochanteric fracture of left femur: PLAN: Plan Patient is an 87-year-old lady who presented with left hip pain following a fall found to have comminuted intertrochanteric fracture of the left femur fracture. Patient underwent ORIF on 02/13/2023 1. Fall with Comminuted intertrochanteric fracture of the left femur ?Patient underwent reatment of intertrochanteric hip fracture with intramedullary nail left femur on 02/13/[address] Andrews. ? 02/17/2023 patient complained of spasms and left lower extremity. Awaiting insurance precertification prior to transfer to a correction facility 2. Physical deconditioning secondary to above - Requested for PT OT eval and psychotherapist social worker to assist with discharge planning 3. 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 Hypertension - Blood pressure controlled, home medications continued with dose adjustment as needed 5. Hypothyroidism - Patient is on levothyroxine home dose continued 6. DVT prophylaxis - On enoxaparin 7. Anemia ? Secondary to combination of anemia of chronic disorder as well as acute blood loss anemia following surgery monitoring H&H with plans to transfuse if hemoglobin falls below 7 or patient becomes symptomatic Time spent in the patient's overall evaluation,decision-making process, review of diagnostic data, adjustment of management, discussion with other providers, nursing nursing and ancillary staff involved in patient's care documentation, 38 Minutes Charges/Coding Visit Charges Inpatient E&M: 59898 Subs Hosp L2
[2023-02-17 07:57] VITALS: BP 147/92; PULSE 95; RESP 16; TEMP 36.6; O2SAT 97
[2023-02-17] MEDS: Calcium Carbonate 500 MG Tablet PO ×3 (08:04→17:46)
[2023-02-17] MEDS: Senna/Docusate Sodium 1 Tablet 2 TABLET PO (10:57)
[2023-02-17] MEDS: amLODIPine 5 MG Tablet PO (10:57)
--- NOTE | 2023-02-17 13:58 | CASEMGMT ---
Social Work [facility] from [facility] messaged with precert for pt. SW updated MD Nolasco. SW also updated pt, who voiced understanding. SW informed pt bedside nurse that pt will need a covid test. PLAN: [facility]
--- NOTE | 2023-02-17 14:26 | TREXTCAR_ITS ---
Diet Diet Order/Speech Therapy: 02/14/23 06:05 Diet: Regular - General Is pt able to select menu?: Yes Wound(s) LEFT HIP: Wound Type: Surgical Incision Therapies Weight Bearing: Weight bearing as tolerated Physical Therapy: Eval and Treat Occupational Therapy: Eval and Treat Problem/Diagnosis (1) Closed intertrochanteric fracture of left femur: Status: Acute Code(s): S72.142A - Displaced intertrochanteric fracture of left femur, initial encounter for closed fracture Plan Patient is an 87-year-old lady who presented with left hip pain following a fall found to have comminuted intertrochanteric fracture of the left femur fracture. Patient underwent ORIF on 02/13/2023 1. Fall with Comminuted intertrochanteric fracture of the left femur ?Patient underwent reatment of intertrochanteric hip fracture with intramedullary nail left femur on 02/13/[address] Andrews. ? 02/17/2023 patient complained of spasms and left lower extremity. Awaiting insurance precertification prior to transfer to a retirement facility 2. Physical deconditioning secondary to above - Requested for PT OT eval and social work supervisor to assist with discharge planning 3. 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 Hypertension - Blood pressure controlled, home medications continued with dose adjustment as needed 5. Hypothyroidism - Patient is on levothyroxine home dose continued 6. DVT prophylaxis - On enoxaparin 7. Anemia ? Secondary to combination of anemia of chronic disorder as well as acute blood loss anemia following surgery monitoring H&H with plans to transfuse if hemoglobin falls below 7 or patient becomes symptomatic Time spent in the patient's overall evaluation,decision-making process, review of diagnostic data, adjustment of management, discussion with other providers, nursing nursing and ancillary staff involved in patient's care documentation, 38 Minutes Allergies/Procedures Done in Hospital Allergies No Known Allergies Allergy (Verified 02/12/23 19:03) Type of Care/Length of Stay Estimated LOS: Convalescent Care Less Than 30 days Type of Care Needed: Skilled Rehab Potential: Good Prognosis: Good Additional Orders/Day of Discharge Day of Discharge: 02/17/23 Dietary and Speech Recommendations Dietitian Recommendations/Changes: Will continue regular diet Discharge Plan Admission Admit Date/Time: 02/12/23 23:33 Primary Reason for Your Visit: Left leg pain Attending Provider: Otto Nolasco Primary Care Provider: Jessa Alberto Consulting Providers: Romie Walsh ; Jose Andrews ; Sara Lorenzo Instructions Patient Instructions: ED Fall Prevention Additional Instructions / Restrictions: DISCHARGE INSTRUCTIONS PLEASE READ *Please take this with you to your next doctors appointment* -You will need to follow-up with Dr. Andrews in the office in 2 weeks and you will need x-rays in 2 weeks as well. - Would recommend lab work (BMP) to check your kidney function in 3 to 5 days through your primary care physician's office. Please call their office upon discharge to obtain order for lab work. -Your lisinopril was stopped due to slight bump in your kidney function and you have been prescribed amlodipine. Please follow-up with your primary care physician as your medications may change further depending on your kidney function in the future and follow-up blood pressure -Please call your primary care provider's office upon discharge to schedule a hospital follow up within 1 week. -For any concerning signs or symptoms please call 911 or proceed to the nearest emergency department Discharge Orders/Prescriptions Prescriptions: New sennosides-docusate sodium [Stool Softener-Stimulant Laxat] 8.6-50 mg Tablet 2 tab PO BID Qty: 0 0RF oxycodone 5 mg Tablet 5 mg PO Q4H PRN PRN (Reason: Pain Score 8-10) 2 Days Qty: 8 0RF melatonin 3 mg Tablet 3 mg PO QHS PRN PRN (Reason: Insomnia) Qty: 0 0RF acetaminophen 500 mg Tablet 1,000 mg PO Q6 Qty: 0 0RF amlodipine 5 mg Tablet 5 mg PO DAILY Qty: 0 0RF calcium carbonate 200 mg calcium (500 mg) Tablet,Chewable 500 mg PO TIDCM Qty: 0 0RF enoxaparin 40 mg/0.4 mL Syringe 40 mg subcut DAILY@0600 30 Days Qty: 0 0RF Continued levothyroxine 75 MCG tablet 75 mcg PO DAILY lisinopril 20 mg Tablet 20 mg PO DAILY Qty: 30 0RF Discontinued Eliquis 5 mg Tablet 5 mg PO BID Qty: 60 2RF Rx Instructions: Start on 10/26/2021 dexamethasone [Decadron] 6 mg tablet 6 mg PO DAILY Qty: 2 0RF Referrals / Follow Up: Jessa Alberto MD [Primary Care Provider] - Jose Andrews DO [Med Staff - Active Staff] - 02/27/23 Disposition Disposition (needs filled in before D/C Order can be placed): Long-Term Facility
--- NOTE | 2023-02-17 14:30 | PCM.DC.SUM ---
Providers Date of Admission: 02/12/23 Date of Discharge: 02/17/23 Primary Care Physician: Dr. Jessa Alberto MD Consultations 02/13/23 00:42 Consult: Orthopedics Routine Consulting Provider: Jose Andrews Reason for Consult: Left intertrochanteric EMERGENT Consult: No MD Notified: Yes Date Notified: 02/12/23 Time Notified: 23:43 Method of Notification: ED Physician Initiated Reason For Visit: LEFT INTERTROCHANTERIC HIP FRACTURE Diagnosis Discharge Diagnosis (1) Closed intertrochanteric fracture of left femur: Status: Acute Code(s): S72.142A - Displaced intertrochanteric fracture of left femur, initial encounter for closed fracture Plan Patient is an 87-year-old lady who presented with left hip pain following a fall found to have comminuted intertrochanteric fracture of the left femur fracture. Patient underwent ORIF on 02/13/2023 1. Fall with Comminuted intertrochanteric fracture of the left femur ?Patient underwent reatment of intertrochanteric hip fracture with intramedullary nail left femur on 02/13/[address] Andrews. ? 02/17/2023 patient complained of spasms and left lower extremity. Awaiting insurance precertification prior to transfer to a long term facility 2. Physical deconditioning secondary to above - Requested for PT OT eval and social media assistant to assist with discharge planning 3. 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 Hypertension - Blood pressure controlled, home medications continued with dose adjustment as needed 5. Hypothyroidism - Patient is on levothyroxine home dose continued 6. DVT prophylaxis - On enoxaparin 7. Anemia ? Secondary to combination of anemia of chronic disorder as well as acute blood loss anemia following surgery monitoring H&H with plans to transfuse if hemoglobin falls below 7 or patient becomes symptomatic Time spent in the patient's overall evaluation,decision-making process, review of diagnostic data, adjustment of management, discussion with other providers, nursing nursing and ancillary staff involved in patient's care documentation, 38 Minutes Medications at Discharge Home Medications levothyroxine 75 mcg tablet 75 mcg PO DAILY THYROID 05/17/17 lisinopril 20 mg tablet 20 mg PO DAILY #30 tabs 10/19/21 acetaminophen 500 mg tablet 1,000 mg PO Q6 #0 tabs 02/17/23 amlodipine 5 mg tablet 5 mg PO DAILY #0 tabs 02/17/23 calcium carbonate 200 mg calcium (500 mg) chewable tablet 500 mg PO TIDCM #0 tabs 02/17/23 enoxaparin 40 mg/0.4 mL subcutaneous syringe 40 mg (0.4 mL) subcut DAILY@0600 30 days #0 mL 02/17/23 melatonin 3 mg tablet 3 mg PO QHS PRN PRN Insomnia #0 tabs 02/17/23 oxycodone 5 mg tablet 5 mg PO Q4H PRN PRN Pain Score 8-10 2 days #8 tabs 02/17/23 sennosides 8.6 mg-docusate sodium 50 mg tablet (Stool Softener-Stimulant Laxative) 2 tab PO BID #0 tabs 02/17/23 Hospital Course Summary of Care Provided Minutes Spent on Discharge: 38 Physical Exam Narrative GENERAL: cooperative HEENT: Atraumatic; normocephalic EYES; Anicteric, Normal Conjunctiva NECK; supple, normal thyroid, RESPIRATORY: Diminished to auscultation CARDIOVASCULAR: Regular S1 S2, GI: soft, normoactive bowel sounds, : No Renal angle tenderness; EXTREMITIES: No edema, no clubbing, MUSCULOSKELETAL: no muscle wasting NEURO: Awake; no lateralizing signs. SKIN: No Rash PSYCH; Flat affect Weight / BMI Weight Weight: 74.8 kg Body Mass Index (BMI) 29.2 ABG / Lab / Microbiology Data Result Diagrams: 02/17/23 06:15 02/17/23 06:15 Laboratory: Laboratory Results - last 24 hr 02/17/23 06:15: WBC 9.1, RBC 2.96 L, Hgb 9.1 L, Hct 28.3 L, MCV 95.6, MCH 30.7, MCHC 32.2, RDW Std Deviation 44.2 H, RDW Coeff of Marguerite 12.9, Plt Count 253, MPV 10.5, Immature Gran % (Auto) 1.000 H, Neut % (Auto) 65.4, Lymph % (Auto) 20.9, [place] % (Auto) 8.0, Eos % (Auto) 4.0, Baso % (Auto) 0.7, Absolute Neuts (auto) 5.9, Absolute Lymphs (auto) 1.89, Nucleated RBC % 0.4 02/17/23 06:15: Sodium 140, Potassium 3.6, Chloride 105, Carbon Dioxide 32.0, Anion Gap 3 L, BUN 16, Creatinine 0.59, Estim Creat Clear Calc 33.41, Est GFR (MDRD) Af Amer 124, Est GFR (MDRD) Non-Af 103, BUN/Creatinine Ratio 27.1 H, Glucose 166 H, Calcium 8.2 L D/C Instructions Discharge Diet: No restrictions Discharge Activity: Return to Normal Activity Call your doctor if you observe: Fever of 101 or Higher, Shortness of breath, Fainting spells and Chest pain Meaningful Use Info Meaningful Use Diagnoses (Choose all that apply): None applicable Discharge Plan Admission Admit Date/Time: 02/12/23 23:33 Primary Reason for Your Visit: Left leg pain Attending Provider: Otto Nolasco Primary Care Provider: Jessa Alberto Consulting Providers: Romie Walsh ; Jose Andrews ; Sara Lorenzo Instructions Patient Instructions: ED Fall Prevention Additional Instructions / Restrictions: DISCHARGE INSTRUCTIONS PLEASE READ *Please take this with you to your next doctors appointment* -You will need to follow-up with Dr. Andrews in the office in 2 weeks and you will need x-rays in 2 weeks as well. - Would recommend lab work (BMP) to check your kidney function in 3 to 5 days through your primary care physician's office. Please call their office upon discharge to obtain order for lab work. -Your lisinopril was stopped due to slight bump in your kidney function and you have been prescribed amlodipine. Please follow-up with your primary care physician as your medications may change further depending on your kidney function in the future and follow-up blood pressure -Please call your primary care provider's office upon discharge to schedule a hospital follow up within 1 week. -For any concerning signs or symptoms please call 911 or proceed to the nearest emergency department Discharge Orders/Prescriptions Prescriptions: New sennosides-docusate sodium [Stool Softener-Stimulant Laxat] 8.6-50 mg Tablet 2 tab PO BID Qty: 0 0RF oxycodone 5 mg Tablet 5 mg PO Q4H PRN PRN (Reason: Pain Score 8-10) 2 Days Qty: 8 0RF melatonin 3 mg Tablet 3 mg PO QHS PRN PRN (Reason: Insomnia) Qty: 0 0RF acetaminophen 500 mg Tablet 1,000 mg PO Q6 Qty: 0 0RF amlodipine 5 mg Tablet 5 mg PO DAILY Qty: 0 0RF calcium carbonate 200 mg calcium (500 mg) Tablet,Chewable 500 mg PO TIDCM Qty: 0 0RF enoxaparin 40 mg/0.4 mL Syringe 40 mg subcut DAILY@0600 30 Days Qty: 0 0RF Continued levothyroxine 75 MCG tablet 75 mcg PO DAILY lisinopril 20 mg Tablet 20 mg PO DAILY Qty: 30 0RF Discontinued Eliquis 5 mg Tablet 5 mg PO BID Qty: 60 2RF Rx Instructions: Start on 10/26/2021 dexamethasone [Decadron] 6 mg tablet 6 mg PO DAILY Qty: 2 0RF Referrals / Follow Up: Jessa Alberto MD [Primary Care Provider] - Jose Andrews DO [Med Staff - Active Staff] - 02/27/23 Disposition Disposition (needs filled in before D/C Order can be placed): Long-Term Facility Charges/Coding Visit Charges Inpatient E&M: 04485 Disch Hosp >30min
--- NOTE | 2023-02-17 16:08 | CASEMGMT ---
Social Work? IMANI notified pt of discharge to TCU today. Pt declined IMANI calling family to update on d/c plan and stated son Ever, on the way into [facility] to visit and pt would inform of plan when Ever arrives. IMANI faxed all discharge orders to TCU.? SW made copies of discharge orders and placed on pt chart. Sent original orders in envelope with pt upon discharge.???Covid pending, IMANI notified racing secretary it will need added to discharge packet when complete. ?? Disposition: TCU, skilled, convalescent, level of care?? GONZALES Mendiola? ?
[2023-02-17 20:23] VITALS: BP 154/66; PULSE 83; RESP 20; TEMP 36.7; O2SAT 96
== END 2023-02-17 20:35 | DRG 482 ==
LOC: ED 22:25 → MS3 02-13 00:37
PROVIDERS: Anesthesiology; Internal Medicine; Student in an Organized Health Care Education/Training Program; Admitting Provider Hospitalist; Emergency Provider Emergency Medicine; PCP Family Medicine; Visit Provider Internal Medicine
PROC: 0QS736Z Reposition Left Upper Femur with Intramedullary Internal Fixation Device, Percutaneous Approach (ICD-10-PCS; CPT 27245; principal; 2023-02-13 15:30)
DX: S72.142A Displaced intertrochanteric fracture of left femur, initial encounter for closed fracture (principal); D63.8 Anemia in other chronic diseases classified elsewhere; E03.9 Hypothyroidism, unspecified; I10 Essential (primary) hypertension; W18.30XA Fall on same level, unspecified, initial encounter; Y93.H2 Activity, gardening and landscaping; Y92.480 Sidewalk as the place of occurrence of the external cause; Z20.822 Contact with and (suspected) exposure to COVID-19; Z79.01 Long term (current) use of anticoagulants; Z79.890 Hormone replacement therapy; Z79.899 Other long term (current) drug therapy; Z86.711 Personal history of pulmonary embolism; Z86.16 Personal history of COVID-19
CPT/HCPCS: 36415; 51702; 71045; 73502; 73560; 76000; 80048; 80053; 82306; 84443; 85025; 86850; 86900; 86901; 87811; 93005; 97110; 97116; 97163; 97165; 97530; 97535; 99285; C1713; J7030; J7040; J7050; J7120; A4216; J2405

== ENCOUNTER 2023-02-17 20:57 | Inpatient (IN) | payer MEDICARE, SELFPAY ==
[2023-02-17 21:15] VITALS: BP 140/70; PULSE 87; RESP 16; TEMP 36.8; O2SAT 92
[2023-02-17 21:21] VITALS: BMI 30.7
--- NOTE | 2023-02-17 21:26 | HP.PCM_ITS ---
HPI - General General Date of Admission: 02/17/23 Date of Service: 02/18/23 Chief Complaint: Here for rehabilitation. HPI Narrative 02/12/2023 SARAH SCHMITZ, is a 87 Female who presents to [facility] Emergency Department with fall, left hip injury. 02/12/2023 EKG sinus rhythm with first degree AV block with premature atrial contractions, right bundle branch block. Fell, injured left hip, unable to get up. Chest X-ray negative. X-ray showed left hip fracture. Morphine given for pain. She was on Eliquis for pulmonary embolism, but she stopped it. 02/12/2023 Admit to Hospital. Pain control, prepare for surgery. 02/13/2023 Some pain. Was on Eliquis for pulmonary embolism secondary to covid19 in 2020. 02/13/2023 Dr. Andrews performed left femur intramedullary nail fixation. 02/14/2023 Pain controlled, wants to go home. 02/15/2023 Leg cramp, wants to go home, but open to [facility]. Hemoglobin 9.2, monitor. Lisinopril held, Amlodipine given for elevated creatinine. Blood pressure improving. 02/16/2023 PT/OT. 02/17/2023 Admit to TCU with debility, here for rehabilitation, strengthening, prior to discharge home alone. [facility] Medical History Acute hypoxemic respiratory failure Bilateral pulmonary embolism COVID-19 Hypertension Hypothyroidism Irritable bowel Overweight (BMI 25.0-29.9) Restless legs Home Medications levothyroxine 75 mcg tablet 75 mcg PO DAILY THYROID 05/17/17 [History Last Taken 09/29/19 0730] acetaminophen 500 mg tablet 1,000 mg PO Q6 Pain 02/17/23 [History Last Taken Unknown] amlodipine 5 mg tablet 5 mg PO DAILY Blood pressure 02/17/23 [History Last Taken Unknown] calcium carbonate 200 mg calcium (500 mg) chewable tablet 500 mg PO TIDCM Supplement 02/17/23 [History Last Taken Unknown] enoxaparin 40 mg/0.4 mL subcutaneous syringe 40 mg subcut DAILY@0600 Anticoagulant 02/17/23 [History Last Taken Unknown] lisinopril 20 mg tablet 20 mg PO DAILY Check with primary doctor 02/17/23 [History Last Taken Unknown] melatonin 3 mg tablet 3 mg PO QHS PRN PRN Insomnia #0 tabs 02/17/23 [Rx Last Taken Unknown] oxycodone 5 mg tablet 5 mg PO Q4H PRN PRN Pain Score 8-10 2 days #8 tabs 02/17/23 [Rx Last Taken Unknown] sennosides 8.6 mg-docusate sodium 50 mg tablet (Stool Softener-Stimulant Laxative) 2 tab PO BID Constipation 02/17/23 [History Last Taken Unknown] Allergy/AdvReac Type Severity Reaction Status Date / Time No Known Allergies Allergy Verified 02/12/23 19:03 Family History Mother Cancer Surgical History History of appendectomy S/P hysterectomy Social History household members: other details: Notes her son lives with her. Smoking Status: Never smoker alcohol intake: never substance use type: does not use ROS Constitutional Constitutional: Denies chills, fever(s) or weight gain ENT HEENT: Denies headache(s), nasal congestion or nasal discharge Cardiovascular Cardiovascular: Denies chest pain or palpitations Respiratory/Chest Respiratory/Chest: Denies cough, excessive phlegm production or shortness of breath with exertion Gastrointestinal Gastrointestinal: Denies abdominal pain, nausea or vomiting Genitourinary Genitourinary: Denies dysuria Musculoskeletal Musculoskeletal: Denies joint pain or joint swelling Integumentary Integumentary: Denies rash or wounds Neurologic Neurologic: Denies focal weakness, numbness or tingling Psychiatric Psychiatric: Denies anxiety, auditory hallucinations, depression, homicidal ideation or suicidal ideation Physical Exam Const alert General Appearance: cooperative HEENT normocephalic Eyes PERRL and EOMs intact bilaterally Neck supple, no JVD and no carotid bruits Resp normal respiratory effort, normal air movement and clear to auscultation bilaterally Cardio regular rate and regular rhythm GI normal to inspection, nondistended, normoactive bowel sounds, non-tender and non-distended Extremity normal capillary refill General Extremity: Negative for edema Skin no rashes or lesions noted General Skin Exam: no breakdown Psych affect normal Appearance: appropriate Results Lab / Micro Data Result Diagrams: 02/18/23 05:22 02/18/23 05:22 Assessment & Plan Assessment/Plan (1) Debility: (2) Closed left hip fracture: (3) Hypertension: (4) Hypothyroidism: (5) History of pulmonary embolism: (6) History of COVID-19: PLAN: Plan 87 year old female with below past medical history hospitalized for left hip fracture, underwent left femur intramedullary nail fixation 02/13/[address] Andrews, admitted to TCU with debility, here for rehabilitation, strengthening, prior to discharge home. * Debility - PT/OT. * Pain - Tylenol 1000mg q6, Oxycodone 5mg q4h prn pain (6-10). * Bowel - senna/colace 2 tablets bid, Dulcolax 10mg pr x 1 prn, MOM 30ml po x1 prn. * Adult immunization - Administer pneumonia vaccine, covid19 vaccine, flu vaccine as appropriate. * DVT prophylaxis - Lovenox 40mg sc daily. * Hypertension - Lisinopril 20mg daily, Amlodipine 5mg daily. * Calcium deficiency - TUMS 500mg tidcm. * Hypothyroidism - Levothyroxine 75mg daily. * Insomnia - Melatonin 3mg qhs prn.
[2023-02-17 21:41] VITALS: BMI 30.7
[2023-02-17] MEDS: Acetaminophen 500 MG Tablet 1000 MG PO (23:18)
[2023-02-18 05:34] LABS: Absolute Lymphocyte Count 1.93 X10^3/uL (0.83-4.51); Absolute Neutrophil Count 6.7 X10^3/uL (2.0-7.7); Basophil# 0.05 X10^3/uL; Basophil% 0.5 % (0-1); Hematocrit 28.4 % (37-47); Hemoglobin 9.1 g/dL (12.0-15.0); Lymphocyte # 1.93 X10^3/ul (0.83-4.51); Lymphocyte % 19.6 % (19-41); Mean Corpuscular Hgb 30.8 pg (27.0-32.0); Mean Corpuscular Volume 96.3 fL (81-99); Mean Platelet Vol. 10.1 fl (6.2-12.0); Monocyte% 8.1 % (0-10); NRBC Flagged by Analyzer 0.3 % (0-5); Neutrophil # 6.67 X10^3/uL (2.7-7.7); Neutrophil % 67.8 % (47-70); Platelet Count 280 K/mm3 (150-450); RBC Distribution Width CV 13.1 % (11.6-14.6); RBC Distribution Width SD 45.1 fl (35.1-43.9); Red Blood Count 2.95 M/mm3 (4.2-5.4); White Blood Count 9.9 K/mm3 (4.4-11.0)
[2023-02-18 05:59] LABS: Anion Gap 3 (5-15); BUN 17 mg/dL (7-18); BUN/Creat Ratio 28.4 RATIO (10-20); Calcium,Total 8.2 mg/dL (8.5-10.1); Chloride 103 mmol/L (98-107); EST Glomerular Filtration Rate 101 mL/min (>60); Est Glom Filt Rate - Afr Amer 122 mL/min (>60); Estimated Creatinine Clearance 33.41 ml/min; Glucose 171 mg/dL (74-106); Potassium 3.6 mmol/L (3.5-5.1); Sodium Level 137 mmol/L (136-145)
[2023-02-18] MEDS: Senna/Docusate Sodium 1 Tablet 2 TABLET PO (06:45)
[2023-02-18] MEDS: Acetaminophen 500 MG Tablet 1000 MG PO ×4 (06:45→23:47)
[2023-02-18] MEDS: Lisinopril 20 MG Tablet PO (06:45)
[2023-02-18] MEDS: Enoxaparin 40 MG/0.4 ML Syringe SC (06:45)
[2023-02-18] MEDS: amLODIPine 5 MG Tablet PO (06:46)
[2023-02-18] MEDS: Levothyroxine 75 MCG Tablet PO (06:47)
[2023-02-18] MEDS: Calcium Carbonate 500 MG Tablet PO ×3 (08:01→17:16)
[2023-02-18] MEDS: Tuberculin,Purif.prot.deriv. 50 TU/ML Vial 0.1 ML ID (10:13)
--- NOTE | 2023-02-18 13:43 | NURSING ---
Digester Capper Note; Activity Asset: Vinay Manuel is independent in her choice of daily activities. She is welcoming to seeing the hide sorter and therapy dog. She will watch TV, read and visit with family and friends. She is not interested in group activities at this time, will continue to do social visit and encourage small group activities for social well-being.
[2023-02-18 14:22] VITALS: BP 115/52; PULSE 68; RESP 20; TEMP 36.1; O2SAT 96
[2023-02-18] MEDS: 0.9% Saline Lock 10 ML Syringe IV (17:21)
[2023-02-18 21:45] VITALS: O2SAT 95
[2023-02-19] MEDS: Levothyroxine 75 MCG Tablet PO (06:00)
[2023-02-19] MEDS: Lisinopril 20 MG Tablet PO (06:00)
[2023-02-19] MEDS: amLODIPine 5 MG Tablet PO (06:00)
[2023-02-19] MEDS: Acetaminophen 500 MG Tablet 1000 MG PO ×3 (06:00→17:27)
[2023-02-19] MEDS: Enoxaparin 40 MG/0.4 ML Syringe SC (06:00)
[2023-02-19] MEDS: Calcium Carbonate 500 MG Tablet PO ×3 (08:20→17:28)
[2023-02-19] MEDS: oxyCODONE 5 MG Tablet PO (09:07)
--- NOTE | 2023-02-19 14:26 | PHA.CONS_ITS ---
TCU RX Drug Regimen Review Subjective: 87 YOF admitted to TCU S/P hospitalization for a fall that lead to a L-hip fracture facilitating surgical repair. Admitted to TCU for rehabilitation and strengthening prior to discharge home where she resides alone. Objective: Allergies No Known Allergies Allergy (Verified 02/12/23 19:03) Current Medications Generic Name Dose Route Start Last Admin Trade Name Freq PRN Reason Stop Dose Admin Acetaminophen 1,000 mg 02/18/23 00:00 02/19/23 12:12 Acetaminophen 500 Mg Tablet PO 1,000 mg Q6 JOSE Administration Amlodipine Besylate 5 mg 02/18/23 06:00 02/19/23 06:00 Amlodipine 5 Mg Tablet PO 5 mg DAILY JOSE Administration Bisacodyl 10 mg 02/17/23 21:43 Bisacodyl 10 Mg Suppository RC X1 PRN Constipation Calcium Carbonate 500 mg 02/18/23 07:45 02/19/23 12:12 Calcium Carbonate 500 Mg Tablet PO 500 mg TIDCM JOSE Administration Enoxaparin Sodium 40 mg 02/18/23 06:00 02/19/23 06:00 Enoxaparin 40 Mg/0.4 Ml Syringe SC 40 mg DAILY@0600 JOSE Administration Sodium Chloride 250 mls @ 15 mls/hr 02/18/23 00:33 IV .[id number] PRN Saline Flush Sodium Chloride 250 mls @ 15 mls/hr 02/18/23 00:33 IV .[id number] PRN Additional IVPB Infusion Levothyroxine Sodium 75 mcg 02/18/23 06:00 02/19/23 06:00 Levothyroxine 75 Mcg Tablet PO 75 mcg DAILY JOSE Administration Lisinopril 20 mg 02/18/23 06:00 02/19/23 06:00 Lisinopril 20 Mg Tablet PO 20 mg DAILY JOSE Administration Magnesium Hydroxide 30 ml 02/17/23 21:43 Magnesium Hydroxide 30 Ml Udc PO X1 PRN Constipation Melatonin 3 mg 02/17/23 21:27 Melatonin 3 Mg Tablet PO QHS PRN PRN Insomnia Oxycodone HCl 5 mg 02/17/23 21:39 02/19/23 09:07 Oxycodone 5 Mg Tablet PO 5 mg Q4H PRN PRN Administration Pain Score 6-10 Senna/Docusate Sodium 2 tablet 02/18/23 06:00 02/19/23 06:00 Senna/Docusate Sodium 1 Tablet PO Not Given BID JOSE Sodium Chloride 10 - 40 ml 02/18/23 00:33 02/18/23 17:21 0.9% Saline Lock 10 Ml Syringe IV 10 ml UD PRN Administration SALINE FLUSH Tuberculin PPD 0.1 ml 02/25/23 10:00 Tuberculin,Purif.Prot.Deriv. 50 Tu/Ml Vial ID 02/25/23 10:01 X1 ONE Problem List (Last Reviewed 02/17/23 @ 21:[address] Sachin Zambrano MD) History of COVID-19 (Acute) History of pulmonary embolism (Acute) Hypertension (Chronic) Closed left hip fracture (Acute) Debility (Acute) Hypothyroidism (Acute) Vital Signs Temp Pulse Resp BP Pulse Ox O2 Del Method 97.0 F L 68 20 H 115/52 L 95 Room Air 02/18/23 14:22 02/18/23 14:22 02/18/23 14:22 02/18/23 14:22 02/18/23 21:45 02/19/23 10:00 Oxygen Delivery Method Room Air Weight: 78.5 kg Body Mass Index (BMI) 30.7 Sodium 137 mmol/L (136-145) 02/18/23 05:22 Potassium 3.6 mmol/L (3.5-5.1) 02/18/23 05:22 Chloride 103 mmol/L (98-107) 02/18/23 05:22 Carbon Dioxide 31.0 mmol/L (21.0-32.0) 02/18/23 05:22 Anion Gap 3 (5-15) L 02/18/23 05:22 BUN 17 mg/dL (7-18) 02/18/23 05:22 Creatinine 0.60 mg/dL (0.55-1.02) 02/18/23 05:22 Est GFR (MDRD) Af Amer 122 mL/min (>60) 02/18/23 05:22 Est GFR (MDRD) Non-Af 101 mL/min (>60) 02/18/23 05:22 BUN/Creatinine Ratio 28.4 RATIO (10-20) H 02/18/23 05:22 Glucose 171 mg/dL (74-106) H 02/18/23 05:22 Assessment/Plan: 1. Pain: Tylenol 1000mg PO Q6h, Oxycodone 5mg PO Q4h PRN Pain 6-10. Please continue to monitor for increased/decreased S/S pain, PRN medication usage, constipation and oversedation with narcotic usage. - To date, the patient has required one dose of PRN oxycodone. Pre-medication pain rated 8/10, post-medication pain rated 0/10. It appears pain is being managed appropriately at this time. 2. HTN: Lisinopril 20mg PO Daily, Amlodipine 5mg PO Daily. Please continue to monitor BP (range 115-140/52-70), renal function, potassium (last 3.6 on 02/18), S/S LLE swelling. 3. Hypothyroidism: Synthroid 75mcg PO Daily. Please continue to monitor thyroid panels as clinically indicated (last TSH WNL on 02/13/23), S/S hypothyroidism. 4. DVT Prophylaxis: Lovenox 40mg SC Daily. Please continue to monitor for S/S bleeding/bruising, renal function (last CrCl 33mL/min on 02/18), H/H (last done 02/18). Please continue to monitor renal function closely, and adjust dose to 30mg SC daily should CrCl drop below 30mL/min, thank you. 5. Calcium Deficiency/ GERD: Tums 500mg PO TIDCM. Please continue to monitor Calcium levels, S/S GERD flare-ups. 6. Insomnia: Melatonin 3mg PO QHS PRN. Please continue to monitor for medication effectiveness. 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 7. Bowel: Senna/Docusate 2 tab PO BID, Dulcolax 10mg [place] x1 PRN, MOM 30ml PO x1 PRN. Please continue to monitor for increased/decreased constipation and/or diarrhea. - To date, the patient does not have documented bowel movements. It appears t he patient is refusing her scheduled Senna/Docusate doses. Please encourage patient to take scheduled medication to help facilitate a bowel movement to avoid significant constipation, especially given that she is using narcotic medications to help manage pain, thank you. Assessment/Plan for indications treated with psychotropic medications: The patient is not currently on any psychotropic medications at time of medication review. Medical chart and medication regimen reviewed. The following medication irregularities or issues were identified: No medication irregularities were identified at the time of medication review. Date of Note:: 02/19/23
[2023-02-19 14:36] VITALS: BP 123/50; PULSE 76; RESP 16; TEMP 36.1; O2SAT 95
--- NOTE | 2023-02-19 16:17 | CASEMGMT ---
Social Work Met with patient to complete initial assessment. Introduced self and role. Discussed code status and MOLST form. Pt wishes to be DNR-CCA, no intubation. Nursing notified. MOLST completed and placed in Dr folder. Pt had 7 children, 5 are still living. Pt reports to having the best relationship with son, Ever. Son already assists with finances. SW offered to complete HCPOA. Pt agreed and will name son, Ever. Educated to [facility] insurance and continued stay is not guaranteed with each review. Pt's goal is to return home alone at [facility]. Son, is only dependable support, but works veterans contact representative and raising three children. SW to continue to follow for DC planning. Davina Conner, RESOURCE PROGRAM TEACHER HOUSING ASSISTANT
[2023-02-19] MEDS: Senna/Docusate Sodium 1 Tablet 2 TABLET PO (17:28)
[2023-02-20] MEDS: Acetaminophen 500 MG Tablet 1000 MG PO ×4 (00:24→21:20)
[2023-02-20] MEDS: Enoxaparin 40 MG/0.4 ML Syringe SC (06:18)
[2023-02-20] MEDS: Lisinopril 20 MG Tablet PO (06:19)
[2023-02-20] MEDS: Senna/Docusate Sodium 1 Tablet 2 TABLET PO (06:19)
[2023-02-20] MEDS: amLODIPine 5 MG Tablet PO (06:19)
[2023-02-20] MEDS: Levothyroxine 75 MCG Tablet PO (06:19)
[2023-02-20 06:23] VITALS: BP 153/68; PULSE 68; RESP 16
[2023-02-20 07:50] LABS: Hematocrit 31.4 % (37-47); Hemoglobin 10.2 g/dL (12.0-15.0)
[2023-02-20] MEDS: oxyCODONE 5 MG Tablet PO ×2 (08:23→13:26)
[2023-02-20] MEDS: Calcium Carbonate 500 MG Tablet PO ×3 (08:24→18:18)
[2023-02-20 09:27] VITALS: PULSE 71; RESP 16; O2SAT 97
--- NOTE | 2023-02-20 11:02 | CASEMGMT ---
Social Work Completed HCPOA with pt. Pt named son, Ever, as primary and granddaughter, Maureen, as secondary. Original and copy provided to pt. Copy placed in chart. RADHA JulienW
[2023-02-20 15:58] VITALS: BP 136/71; PULSE 58; RESP 16; TEMP 36.4; O2SAT 97
[2023-02-21] MEDS: Acetaminophen 500 MG Tablet 1000 MG PO ×3 (05:19→22:00)
[2023-02-21] MEDS: Enoxaparin 40 MG/0.4 ML Syringe SC (05:19)
[2023-02-21] MEDS: Levothyroxine 75 MCG Tablet PO (05:19)
[2023-02-21] MEDS: Lisinopril 20 MG Tablet PO (05:19)
[2023-02-21] MEDS: amLODIPine 5 MG Tablet PO (05:19)
[2023-02-21 05:24] VITALS: BP 129/64; PULSE 86; RESP 16
[2023-02-21] MEDS: Calcium Carbonate 500 MG Tablet PO ×3 (07:58→16:51)
[2023-02-21] MEDS: oxyCODONE 5 MG Tablet PO (08:44)
[2023-02-21 14:52] VITALS: BP 119/63; PULSE 68; RESP 20; TEMP 36.3; O2SAT 94
--- NOTE | 2023-02-21 23:49 | NURSING ---
Dressing to proximal incision left thigh changed. Moderate amount of serosanguinous drainage noted on old dressing. Patient tolerated well. Will continue to monitor.
[2023-02-22] MEDS: Enoxaparin 40 MG/0.4 ML Syringe SC (05:19)
[2023-02-22] MEDS: Levothyroxine 75 MCG Tablet PO (05:20)
[2023-02-22] MEDS: amLODIPine 5 MG Tablet PO (05:20)
[2023-02-22] MEDS: Lisinopril 20 MG Tablet PO (05:20)
[2023-02-22] MEDS: Acetaminophen 500 MG Tablet 1000 MG PO ×3 (05:21→21:17)
[2023-02-22 05:26] VITALS: BP 116/58; PULSE 60
[2023-02-22] MEDS: Calcium Carbonate 500 MG Tablet PO ×3 (08:07→16:56)
[2023-02-22] MEDS: oxyCODONE 5 MG Tablet PO (11:09)
[2023-02-22 14:51] VITALS: BP 134/64; PULSE 69; RESP 16; TEMP 36.6; O2SAT 95
[2023-02-22 19:22] VITALS: PULSE 67; RESP 16; O2SAT 95
[2023-02-23] MEDS: Enoxaparin 40 MG/0.4 ML Syringe SC (05:11)
[2023-02-23] MEDS: Acetaminophen 500 MG Tablet 1000 MG PO ×3 (05:11→21:22)
[2023-02-23] MEDS: Lisinopril 20 MG Tablet PO (05:12)
[2023-02-23] MEDS: Levothyroxine 75 MCG Tablet PO (05:12)
[2023-02-23] MEDS: amLODIPine 5 MG Tablet PO (05:12)
[2023-02-23 05:18] VITALS: BP 139/69; PULSE 63
[2023-02-23] MEDS: Calcium Carbonate 500 MG Tablet PO ×3 (07:52→17:35)
--- NOTE | 2023-02-23 11:02 | NURSING ---
Offered Covid booster, education about vaccine provided. Patient refuses at this time.
[2023-02-23] MEDS: oxyCODONE 5 MG Tablet PO ×2 (11:36→16:02)
[2023-02-23 14:31] VITALS: BP 122/52; PULSE 74; RESP 16; TEMP 36.7; O2SAT 100
--- NOTE | 2023-02-23 15:22 | WOUNDNOTE ---
wound photo: left foot
[2023-02-23 20:00] VITALS: PULSE 78; RESP 18; O2SAT 96
[2023-02-23] MEDS: Menthol/Lanolin/Calamine/Znox 113 GM Tube 1 APPLIC TOPICAL (21:20)
[2023-02-24] MEDS: amLODIPine 5 MG Tablet PO (05:21)
[2023-02-24] MEDS: Levothyroxine 75 MCG Tablet PO (05:21)
[2023-02-24] MEDS: Acetaminophen 500 MG Tablet 1000 MG PO ×3 (05:21→21:07)
[2023-02-24] MEDS: Lisinopril 20 MG Tablet PO (05:21)
[2023-02-24] MEDS: Enoxaparin 40 MG/0.4 ML Syringe SC (05:22)
[2023-02-24] MEDS: Calcium Carbonate 500 MG Tablet PO ×2 (07:57→13:18)
[2023-02-24] MEDS: Menthol/Lanolin/Calamine/Znox 113 GM Tube 1 APPLIC TOPICAL ×2 (07:58→21:07)
[2023-02-24] MEDS: oxyCODONE 5 MG Tablet PO ×2 (09:36→21:06)
--- NOTE | 2023-02-24 11:00 | CASEMGMT ---
Social Work BIMS () and PHQ-9 (01/12) completed for MDS assessment. Davina Conner MSW FAMILY WORKER
[2023-02-24 11:04] VITALS: BMI 30.5
[2023-02-24 14:39] VITALS: BP 136/73; PULSE 71; RESP 17; TEMP 36.4; O2SAT 92
[2023-02-24 22:00] VITALS: PULSE 70; RESP 16; O2SAT 93
--- NOTE | 2023-02-24 22:26 | NURSING ---
Presents in recliner with BLE elevated, offered to change dressing to left hip at this time, patient declined stating it's fine now, I think they did it earlier, maybe later. Offered assist to change into gown, HS care, assist to bed, patient declined stating I like to sleep in my recliner, I'm comfortable how I am. Declined HS care. Denies pain at this time. Educated on importance of offloading pressure to promote and maintain skin integrity, verbalizes understanding. Dentures brushed and soaked per patient request. Denies requests. Call light in reach.
[2023-02-25] MEDS: oxyCODONE 5 MG Tablet PO ×3 (04:55→16:01)
[2023-02-25] MEDS: Enoxaparin 40 MG/0.4 ML Syringe SC (04:55)
[2023-02-25] MEDS: Acetaminophen 500 MG Tablet 1000 MG PO ×3 (04:55→21:08)
[2023-02-25] MEDS: Levothyroxine 75 MCG Tablet PO (04:56)
[2023-02-25] MEDS: Lisinopril 20 MG Tablet PO (04:56)
[2023-02-25] MEDS: amLODIPine 5 MG Tablet PO (04:56)
[2023-02-25 05:35] LABS: Absolute Lymphocyte Count 2.24 X10^3/uL (0.83-4.51); Absolute Neutrophil Count 6.6 X10^3/uL (2.0-7.7); Basophil# 0.07 X10^3/uL; Basophil% 0.7 % (0-1); Eosinophil# 0.29 X10^3/uL; Eosinophils% 2.9 % (0-5); Hematocrit 32.5 % (37-47); Hemoglobin 10.1 g/dL (12.0-15.0); Lymphocyte # 2.24 X10^3/ul (0.83-4.51); Lymphocyte % 22.1 % (19-41); Mean Corp Hgb Conc 31.1 g/dL (32-36); Mean Corpuscular Hgb 31.3 pg (27.0-32.0); Mean Corpuscular Volume 100.6 fL (81-99); Mean Platelet Vol. 9.4 fl (6.2-12.0); Monocyte# 0.71 X10^3/uL; NRBC Flagged by Analyzer 0 % (0-5); Neutrophil # 6.59 X10^3/uL (2.7-7.7); Platelet Count 381 K/mm3 (150-450); RBC Distribution Width CV 15.7 % (11.6-14.6); RBC Distribution Width SD 54.4 fl (35.1-43.9); Red Blood Count 3.23 M/mm3 (4.2-5.4); White Blood Count 10.1 K/mm3 (4.4-11.0)
[2023-02-25 05:57] LABS: Anion Gap 6 (5-15); BUN 19 mg/dL (7-18); BUN/Creat Ratio 25.7 RATIO (10-20); Calcium,Total 8.7 mg/dL (8.5-10.1); Chloride 101 mmol/L (98-107); Creatinine, Serum 0.74 mg/dL (0.55-1.02); EST Glomerular Filtration Rate 79 mL/min (>60); Est Glom Filt Rate - Afr Amer 96 mL/min (>60); Estimated Creatinine Clearance 33.41 ml/min; Glucose 154 mg/dL (74-106); Potassium 4.6 mmol/L (3.5-5.1); Sodium Level 136 mmol/L (136-145)
[2023-02-25] MEDS: Calcium Carbonate 500 MG Tablet PO ×3 (07:56→17:11)
--- NOTE | 2023-02-25 09:53 | CASEMGMT ---
Social Work IDT met with patient, gdorlando then son, Ever, via conference call. Discussed patient's progress in PT/OT/SN. Educated to [facility] insurance with [employer] 02/27 and insurance is requesting DC plans are in place. Educated to possible DC 03/02 and inquired about DC plan. Family and pt agree pt will DC home. Family to stop in periodically. SW provided resources for [facility] and [employer]. [facility] No D[facility] needs. SW to coordinate DC needs. Will continue to follow. Davina Conner, RADHA EDUCATION INSTRUCTOR
[2023-02-25] MEDS: Menthol/Lanolin/Calamine/Znox 113 GM Tube 1 APPLIC TOPICAL ×2 (10:21→21:07)
[2023-02-25 10:36] VITALS: PULSE 68; RESP 17; O2SAT 96
[2023-02-25] MEDS: Tuberculin,Purif.prot.deriv. 50 TU/ML Vial 0.1 ML ID (12:20)
[2023-02-25 14:47] VITALS: BP 120/51; PULSE 74; RESP 16; TEMP 36.6; O2SAT 96
[2023-02-26] MEDS: amLODIPine 5 MG Tablet PO (05:54)
[2023-02-26] MEDS: Levothyroxine 75 MCG Tablet PO (05:54)
[2023-02-26] MEDS: Lisinopril 20 MG Tablet PO (05:54)
[2023-02-26] MEDS: Acetaminophen 500 MG Tablet 1000 MG PO ×3 (05:54→20:15)
[2023-02-26] MEDS: oxyCODONE 5 MG Tablet PO (09:25)
[2023-02-26] MEDS: Calcium Carbonate 500 MG Tablet PO ×3 (09:25→17:06)
[2023-02-26] MEDS: Menthol/Lanolin/Calamine/Znox 113 GM Tube 1 APPLIC TOPICAL ×2 (09:31→20:15)
[2023-02-26 10:00] VITALS: PULSE 71; RESP 18; O2SAT 95
[2023-02-26 14:45] VITALS: BP 114/51; PULSE 67; RESP 14; TEMP 36.4; O2SAT 93
[2023-02-27] MEDS: Senna/Docusate Sodium 1 Tablet 2 TABLET PO (05:24)
[2023-02-27] MEDS: amLODIPine 5 MG Tablet PO (05:25)
[2023-02-27] MEDS: Lisinopril 20 MG Tablet PO (05:25)
[2023-02-27] MEDS: Levothyroxine 75 MCG Tablet PO (05:25)
[2023-02-27] MEDS: Acetaminophen 500 MG Tablet 1000 MG PO ×3 (05:26→20:54)
[2023-02-27] MEDS: Calcium Carbonate 500 MG Tablet PO ×3 (08:33→18:03)
[2023-02-27] MEDS: Menthol/Lanolin/Calamine/Znox 113 GM Tube 1 APPLIC TOPICAL ×2 (08:35→20:55)
[2023-02-27] MEDS: oxyCODONE 5 MG Tablet PO (09:32)
--- NOTE | 2023-02-27 13:57 | PCM.DC.SUM ---
Providers Date of Admission: 02/17/23 Primary Care Physician: Dr. Jessa Alberto MD Reason For Visit: LEFT HIP FRACTURE Diagnosis Discharge Diagnosis (1) Debility: Status: Acute Code(s): R53.81 - Other malaise (2) Closed left hip fracture: Status: Acute Code(s): S72.002A - Fracture of unspecified part of neck of left femur, initial encounter for closed fracture (3) Hypertension: Status: Chronic Code(s): I10 - Essential (primary) hypertension (4) Hypothyroidism: Status: Acute Code(s): E03.9 - Hypothyroidism, unspecified (5) History of pulmonary embolism: Status: Acute Code(s): Z86.711 - Personal history of pulmonary embolism (6) History of COVID-19: Status: Acute Code(s): Z86.16 - Personal history of COVID-19 Plan 87 year old female with below past medical history hospitalized for left hip fracture, underwent left femur intramedullary nail fixation 02/13/[address] Andrews, admitted to TCU with debility, here for rehabilitation, strengthening, prior to discharge home. Debility - PT/OT. Pain - Tylenol 1000mg q6, Oxycodone 5mg q4h prn pain (6-10). Bowel - senna/colace 2 tablets bid, Dulcolax 10mg pr x 1 prn, MOM 30ml po x1 prn. Adult immunization - Administer pneumonia vaccine, covid19 vaccine, flu vaccine as appropriate. DVT prophylaxis - Lovenox 40mg sc daily. Hypertension - Lisinopril 20mg daily, Amlodipine 5mg daily. Calcium deficiency - TUMS 500mg tidcm. Hypothyroidism - Levothyroxine 75mg daily. Insomnia - Melatonin 3mg qhs prn. Medications at Discharge Home Medications levothyroxine 75 mcg tablet 75 mcg PO DAILY THYROID 05/17/17 acetaminophen 500 mg tablet 1,000 mg PO Q6 Pain 02/17/23 lisinopril 20 mg tablet 20 mg PO DAILY Check with primary doctor 02/17/23 melatonin 3 mg tablet 3 mg PO QHS PRN PRN Insomnia #0 tabs 02/17/23 acetaminophen 500 mg tablet 1,000 mg PO TID #0 tabs 02/27/23 amlodipine 5 mg tablet 5 mg PO DAILY 30 days #30 tabs 02/27/23 calcium carbonate 200 mg calcium (500 mg) chewable tablet 500 mg PO TIDCM #0 tabs 02/27/23 oxycodone 5 mg tablet 5 mg PO Q4H PRN PRN Pain Score 6-10 7 days #30 tabs 02/27/23 sennosides 8.6 mg-docusate sodium 50 mg tablet (Stool Softener-Stimulant Laxative) 2 tab PO BID 30 days #120 tabs 02/27/23 Hospital Course Operations - (Left hip intramedullary nail fixation.) Procedures None Summary of Care Provided Minutes Spent on Discharge: 35 Hospital Course: 87 year old female with below past medical history hospitalized for left hip fracture, underwent left femur intramedullary nail fixation 02/13/[address] Andrews, admitted to TCU with debility, here for rehabilitation, strengthening, prior to discharge home. Discharge home alone 03/02/2023, [facility] PT/OT/OG. Physical Exam Const alert General Appearance: cooperative HEENT normocephalic Eyes PERRL and EOMs intact bilaterally Neck supple, no JVD and no carotid bruits Resp normal respiratory effort, normal air movement and clear to auscultation bilaterally Cardio regular rate and regular rhythm GI normal to inspection, nondistended, normoactive bowel sounds, non-tender and non-distended Extremity normal capillary refill General Extremity: Negative for edema Skin no rashes or lesions noted General Skin Exam: no breakdown Psych affect normal Appearance: appropriate Weight / BMI Weight Weight: 78.154 kg Body Mass Index (BMI) 30.5 ABG / Lab / Microbiology Data Result Diagrams: 02/25/23 05:18 02/25/23 05:18 Microbiology: Microbiology 02/24/23 05:17 Nasal Secretion SARS-CoV-2 Antigen (Rapid) - Final 02/21/23 06:48 Nasal Secretion SARS-CoV-2 Antigen (Rapid) - Final 02/19/23 09:35 Nasal Secretion SARS-CoV-2 Antigen (Rapid) - Final D/C Instructions Discharge Diet: No restrictions Discharge Activity: Return to Normal Activity, May Shower and Use Walker Weight Bearing Status: Weight bearing as tolerated Call your doctor if you observe: Fever of 101 or Higher, Inability to urinate, Inability to have a bowel movement, Shortness of breath, Dizziness, Fainting spells, Swelling in the ankles, Chest pain and Uncontrolled pain Additional Instructions: Discharge home alone 03/02/2023, [facility] PT/OT/OG. Please Follow Up With: Dr. Andrews When: As scheduled. Meaningful Use Info Meaningful Use Diagnoses (Choose all that apply): None applicable Discharge Plan Admission Admit Date/Time: 02/17/23 20:57 Primary Reason for Your Visit: Debility. Attending Provider: Sachin Zambrano Chi Primary Care Provider: Jessa Alberto Instructions Additional Instructions / Restrictions: Discharge home alone 03/02/2023, [facility] PT/OT/OG. Discharge Orders/Prescriptions Prescriptions: New acetaminophen 500 mg Tablet 1,000 mg PO TID Qty: 0 0RF amlodipine 5 mg Tablet 5 mg PO DAILY 30 Days Qty: 30 0RF calcium carbonate 200 mg calcium (500 mg) Tablet,Chewable 500 mg PO TIDCM Qty: 0 0RF sennosides-docusate sodium [Stool Softener-Stimulant Laxat] 8.6-50 mg Tablet 2 tab PO BID 30 Days Qty: 120 0RF oxycodone 5 mg Tablet 5 mg PO Q4H PRN PRN (Reason: Pain Score 6-10) 7 Days Qty: 30 0RF Continued levothyroxine 75 MCG tablet 75 mcg PO DAILY melatonin 3 mg Tablet 3 mg PO QHS PRN PRN (Reason: Insomnia) Qty: 0 0RF lisinopril 20 mg tablet 20 mg PO DAILY Discontinued oxycodone 5 mg Tablet 5 mg PO Q4H PRN PRN (Reason: Pain Score 8-10) 2 Days Qty: 8 0RF sennosides-docusate sodium [Stool Softener-Stimulant Laxat] 8.6-50 mg tablet 2 tab PO BID amlodipine 5 mg tablet 5 mg PO DAILY calcium carbonate 200 mg calcium (500 mg) tablet,chewable 500 mg PO TIDCM enoxaparin 40 mg/0.4 mL syringe 40 mg subcut DAILY@0600 No Action acetaminophen 500 mg tablet 1,000 mg PO Q6 Referrals / Follow Up: Jessa Alberto MD [Primary Care Provider] - Disposition Disposition (needs filled in before D/C Order can be placed): Home Health Service
--- NOTE | 2023-02-27 14:51 | CASEMGMT ---
Social Work Insurance issued LCD 03/01, DC 03/02. SW spoke with pt and pt is agreeable to DC home with [facility] with no DME needs. Family to transport. IMANI phoned referral to [facility] PT/OT/OG. Plan: DC home alone 03/02, [facility] PT/OT/OG BIMS () and PHQ-9 () completed for MDS assessment. RADHA Julien GENERATION MANAGER
[2023-02-27 16:00] VITALS: BP 120/55; PULSE 70; RESP 16; TEMP 36.1; O2SAT 95
[2023-02-27 20:44] VITALS: PULSE 72; RESP 16; O2SAT 95
[2023-02-28] MEDS: Lisinopril 20 MG Tablet PO (05:13)
[2023-02-28] MEDS: Levothyroxine 75 MCG Tablet PO (05:13)
[2023-02-28] MEDS: Acetaminophen 500 MG Tablet 1000 MG PO ×3 (05:13→20:21)
[2023-02-28] MEDS: amLODIPine 5 MG Tablet PO (05:13)
[2023-02-28 05:44] VITALS: BP 146/78; PULSE 65
[2023-02-28 12:23] VITALS: PULSE 67; RESP 18; O2SAT 93
[2023-02-28 14:16] VITALS: BP 135/61; PULSE 67; RESP 18; TEMP 36.1; O2SAT 95
[2023-02-28] MEDS: oxyCODONE 5 MG Tablet PO (17:45)
[2023-02-28] MEDS: Menthol/Lanolin/Calamine/Znox 113 GM Tube 1 APPLIC TOPICAL (20:21)
[2023-03-01] MEDS: Acetaminophen 500 MG Tablet 1000 MG PO ×3 (04:24→20:46)
[2023-03-01] MEDS: Levothyroxine 75 MCG Tablet PO (04:24)
[2023-03-01] MEDS: amLODIPine 5 MG Tablet PO (04:24)
[2023-03-01] MEDS: Lisinopril 20 MG Tablet PO (04:24)
[2023-03-01] MEDS: Menthol/Lanolin/Calamine/Znox 113 GM Tube 1 APPLIC TOPICAL ×2 (14:15→20:46)
[2023-03-01 14:36] VITALS: BP 150/56; PULSE 73; RESP 16; TEMP 35.8; O2SAT 95
[2023-03-02] MEDS: Acetaminophen 500 MG Tablet 1000 MG PO (05:26)
[2023-03-02] MEDS: Lisinopril 20 MG Tablet PO (05:27)
[2023-03-02] MEDS: Levothyroxine 75 MCG Tablet PO (05:27)
[2023-03-02] MEDS: amLODIPine 5 MG Tablet PO (05:27)
--- NOTE | 2023-03-02 08:30 | MDS.RN ---
Information for the mds was obtained from review of the clinical record, interview of resident, staff, and direct observation of resident's care.
[2023-03-02 08:57] VITALS: BP 138/54; PULSE 69; RESP 17; TEMP 36.6; O2SAT 95
[2023-03-02 09:00] VITALS: PULSE 71; O2SAT 95
--- NOTE | 2023-03-02 15:10 | CASEMGMT ---
Social Work Received call from son, Ever, with questions about discharge arrangements for pt, such as prescriptions not being delivered to the room, Life Alert, MOW and skilled HHC not being set up. SW educated to family picking up prescriptions, resources for life alert and MOW were provided to pt and gddtr at [facility] with instruction for family/pt to set up, skilled HHC through [facility] HHC has been set up and will contact pt the day before SOC which is 03/04, for time. Son expressed understanding and thanked for the information. Received a call shortly after from gddtr, Gladys, with the same questions as son. SW educated to above information and noted this worker recently spoke to son. Gddtr stating pt has already fallen once, and the distance to walk to her bathroom is too great and requesting a BSC. SW can refer [place] [facility] [place] be delivered to pt's home, but may not arrive until 03/04. Gddtr expressed understanding. SW offered to provide the resources for nonskilled DREDGE OPERATOR agencies, [facility] and MOW again to gddtr via email. Gddtr agreed and provided email. Gddtr to assist with coordinating services and getting pt's groceries at home. SW notified [facility] of above. Pt has been discharged and no longer in [facility], thus referral made to [facility] via secure email to liaison. Davina Conner, TEACHER VOCAL PATIENT ACCESS REPRESENTATIVE
== END 2023-03-02 09:10 | disposition home health service (06) | DRG 561 ==
PROVIDERS: Admitting Provider Family Medicine Geriatric Medicine; PCP Family Medicine; Visit Provider Family Medicine Geriatric Medicine
DX: S72.002D Fracture of unspecified part of neck of left femur, subsequent encounter for closed fracture with routine healing (principal); E03.9 Hypothyroidism, unspecified; I10 Essential (primary) hypertension; K58.9 Irritable bowel syndrome, unspecified; W19.XXXD Unspecified fall, subsequent encounter; Z86.16 Personal history of COVID-19; Z79.899 Other long term (current) drug therapy; Z79.890 Hormone replacement therapy; Z86.711 Personal history of pulmonary embolism; G47.00 Insomnia, unspecified
CPT/HCPCS: 36415; 80048; 85014; 85018; 85025; 87811; 97110; 97116; 97162; 97166; 97530; 97535; 97802; A4216

== ENCOUNTER → 2023-08-12 | Outpatient (CLI) | payer MEDICARE, SELFPAY ==
[2023-08-12 09:49] LABS: Absolute Neutrophil Count 7.4 X10^3/uL (2.0-7.7); Basophil# 0.04 X10^3/uL; Basophil% 0.4 % (0-1); Eosinophil# 0.11 X10^3/uL; Hematocrit 44.5 % (37-47); Hemoglobin 14.5 g/dL (12.0-15.0); Mean Corp Hgb Conc 32.6 g/dL (32-36); Mean Corpuscular Volume 92.1 fL (81-99); Mean Platelet Vol. 10.9 fl (6.2-12.0); Monocyte# 0.68 X10^3/uL; Monocyte% 6.3 % (0-10); NRBC Flagged by Analyzer 0 % (0-5); Neutrophil # 7.37 X10^3/uL (2.7-7.7); Neutrophil % 67.9 % (47-70); Platelet Count 253 K/mm3 (150-450); RBC Distribution Width CV 14.3 % (11.6-14.6); RBC Distribution Width SD 48.5 fl (35.1-43.9); Red Blood Count 4.83 M/mm3 (4.2-5.4); White Blood Count 10.8 K/mm3 (4.4-11.0)
[2023-08-12 10:37] LABS: AST(SGOT) 25 U/L (15-37); Alanine Aminotransfer ALT/SGPT 36 U/L (13-56); Albumin, Serum 3.7 g/dL (3.2-5.0); Alkaline Phosphatase 88 U/L (45-117); Anion Gap 8 (5-15); BUN 16 mg/dL (7-18); BUN/Creat Ratio 18.9 RATIO (10-20); Calcium,Total 8.8 mg/dL (8.5-10.1); Chloride 103 mmol/L (98-107); Cholesterol 229 mg/dL (200); Creatinine, Serum 0.84 mg/dL (0.55-1.02); EST Glomerular Filtration Rate 68 mL/min (>60); Est Glom Filt Rate - Afr Amer 82 mL/min (>60); Globulin 3.8 g/dL (2.2-4.2); Glucose 179 mg/dL (74-106); High Density Lipoprotein 44 mg/dL; Potassium 3.9 mmol/L (3.5-5.1); Protein, Total 7.5 g/dL (6.4-8.2); Sodium Level 139 mmol/L (136-145); Thyroid Stim Hormone (TSH) 3.97 uIU/mL (0.358-3.74); Triglycerides 254 mg/dL; Very Low Density Lipoprotein 51 mg/dL (5-40)
[2023-08-13 14:23] LABS: Hemoglobin A1c 6.7 % (3.8-5.6)
== END | disposition home or self-care (01) ==
LOC: LAB 08:10
PROVIDERS: PCP Family Medicine; Referring Provider Family Medicine; Visit Provider Family Medicine
DX: I10 Essential (primary) hypertension (principal); E11.9 Type 2 diabetes mellitus without complications; E03.9 Hypothyroidism, unspecified
CPT/HCPCS: 36415; 80053; 80061; 83036; 84443; 85025

== ENCOUNTER 2024-04-28 06:48 | Emergency (ER) | payer MEDICARE, SELFPAY ==
[2024-04-28 06:48] VITALS: BP 220/100; PULSE 90; RESP 16; TEMP 36.5; O2SAT 95; BMI 31.0
--- NOTE | 2024-04-28 07:10 | RAD_ITS ---
STUDY: X-RAY - PELVIS AND RIGHT HIP REASON FOR EXAM: Female, 89 years old. Injury and pain TECHNIQUE: 3 views of the pelvis and hip. COMPARISON: Comparison is made with prior study dated February 12, 2023. FINDINGS: There is a non-specific bowel gas pattern. Normal visualized soft tissue structures. There is narrowing with cortical sclerosis and osteophyte formation of the sacroiliac joint consistent with degenerative osteoarthritic changes. Normal bilateral superior and inferior pubic rami. Normal pubic symphysis. Normal bilateral ischial tuberosities. Normal visualized femoral head. Normal acetabulum. There is moderate articular joint space narrowing of the hip. The patient is status post ORIF of the left intertrochanteric fracture. RAD/HIP, UNI W/ Pelvis 2-3 Views IMPRESSION: Degenerative changes. No fracture or dislocation is seen. Electronically Signed: Jimenez Fuentes MD at 8:05 EDT ,
--- NOTE | 2024-04-28 07:10 | ED.VIS.FALL ---
HPI HPI - Fall History of Present Illness Chief Complaint: Fall Informant: patient and EMS Narrative Narrative: 89-year-old female presenting to the emergency room with right lower pelvic pain. Patient states that she urinates frequently during the night. States she got up around 0200 hrs. and sustained a fall. She crawled to the living room called her son who lives [facility] the [facility] area. He assisted him to the couch and got her up to use the bathroom every hour. She is unable to bear weight. She states she has had a prior left hip fracture. She does not recall the surgeon. She denies any other injuries. She called EMS due to inability to ambulate. She states that the reason that she falls occasionally is due to her left knee giving out which she relates to a prior skin infection. PFSH PFS Medical History Irritable bowel Restless legs Overweight (BMI 25.0-29.9) Bilateral pulmonary embolism COVID-19 Acute hypoxemic respiratory failure Hypothyroidism Hypertension Home Medications ?Medication ?Instructions ?Recorded ?Last Taken ?Type levothyroxine 75 mcg tablet 75 mcg PO DAILY THYROID 05/17/17 04/27/24 History Allergy/AdvReac Type Severity Reaction Status Date / Time No Known Allergies Allergy Verified 02/12/23 19:03 Family History Mother Cancer Surgical History History of appendectomy S/P hysterectomy Social History household members: other details: Notes her son lives with her. Smoking Status: Never smoker alcohol intake: never substance use type: does not use ROS ROS ED Constitutional Constitutional ED: Denies chills, fever(s) or weight loss Eyes Eyes: Denies change in vision or diplopia ENT ENT ED: Denies ear pain, rhinorrhea or sore throat Cardiovascular Cardiovascular: Denies chest pain, orthopnea, palpitations or racing heartbeat Respiratory/Chest Respiratory/Chest: Denies cough, dyspnea or orthopnea Gastrointestinal Gastrointestinal: Denies abdominal pain, diarrhea, nausea or vomiting Genitourinary Genitourinary ED: Denies dysuria, hematuria or urinary frequency Musculoskeletal Musculoskeletal: Reports back pain, neck pain and other Details: See history of present illness ; Denies arthralgias or myalgias Integumentary Denies abscess or rash Neurologic Neurologic: Denies headache(s) or weakness Psychiatric Psychiatric: Denies anxiety, depression, suicidal ideation or suicidal thoughts Endocrine Endocrinology: Denies polydipsia, polyphagia or polyuria Allergic/Immunologic Allergic/Immunologic ED: Denies mouth swelling, tongue swelling or urticaria EXAM Physical Exam Const Vital Signs: 04/28/24 06:48 04/28/24 08:48 04/28/24 08:48 Temperature 97.7 F L Temperature Source Temporal Pulse Rate 90 82 Respiratory Rate 16 16 Respiratory Effort Normal Blood Pressure 220/100 H 159/93 H Blood Pressure Mean 140 115 Pulse Ox 95 96 Oxygen Delivery Method Room Air Room Air 04/28/24 10:00 Temperature Temperature Source Pulse Rate 82 Respiratory Rate 16 Respiratory Effort Blood Pressure 150/89 H Blood Pressure Mean 109 Pulse Ox 96 Oxygen Delivery Method Room Air Positive well nourished, well developed and obese General Appearance ED: well developed Nutritional Appearance: obese HEENT Reports normocephalic, head/scalp atraumatic and moist mucous membranes Eyes PERRL and EOMs intact bilaterally Neck full ROM, no lymphadenopathy, supple and no JVD General: Negative for tenderness Resp normal respiratory effort and clear to auscultation bilaterally Cardio regular rate, regular rhythm and no murmurs GI normal to inspection, nondistended, normoactive bowel sounds and non-tender Palpation: soft Back/Spine no CVA tenderness and normal ROM Extremity Extremity Narrative: Patient notes no tenderness over the greater trochanter on the right. She has tenderness in the inguinal region along the superior pubic rami. There is no shortening of the leg. Neurovascularly intact. Negative logroll. General Extremety ED: Negative for edema General Extremity: Negative for edema Neuro oriented x3 and CN's II-XII intact bilaterally Sensorium / Orientation: alert Sensory Exam: No sensory level loss detected Motor Exam: strength 5/5 throughout Psych mental status grossly normal Mood & Affect: Negative for depressed or tearful Skin no rashes or lesions noted and no wounds MDM MDM MDM Narrative Medical decision making narrative: Differential diagnosis includes but not limited to hip fracture pelvic fracture pelvic bleeding contusion tendon/ligament injury. My independent interpretation of the plain films of the right hip is an acute inferior and superior pubic rami fracture with minimal displacement. Please see radiologist read. CT scan was obtained which demonstrates no further fractures other than the inferior and superior pubic rami on the right. Patient received pain and nausea medication. White count slightly elevated 11.7 with a hemoglobin of 14.5. CMP with a glucose of 189. Patient was able to ambulate here in the department with a walker. I advised her that some patients with this condition do need hospitalization for rehab. She states that that is not her that she has a permanent Thursday that she will be going to. She states that she feels that she can take care of herself at home especially with her son at home. History & Record Review Discussion w/independent historian: Patient Lab Data Attestation: I reviewed the patient's lab results. Labs: Laboratory Results - last 24 hr 04/28/24 04/28/24 07:50 07:55 WBC 11.7 H RBC 4.70 Hgb 14.5 Hct 43.4 MCV 92.3 MCH 30.9 MCHC 33.4 RDW Std Deviation 42.0 RDW Coeff of Marguerite 12.4 Plt Count 216 MPV 10.9 Immature Gran % (Auto) 0.700 Neut % (Auto) 78.2 H Lymph % (Auto) 14.1 L [place] % (Auto) 6.3 Eos % (Auto) 0.4 Baso % (Auto) 0.3 Absolute Neuts (auto) 9.1 H Absolute Lymphs (auto) 1.65 Nucleated RBC % 0 Sodium 139 Potassium 4.0 Chloride 106 Carbon Dioxide 25.0 Anion Gap 8 BUN 17 Creatinine 0.80 Estim Creat Clear Calc 48.55 Est GFR (MDRD) Af Amer 88 Est GFR (MDRD) Non-Af 73 BUN/Creatinine Ratio 21.4 H Glucose 189 H Calcium 9.2 Total Bilirubin 0.50 AST 28 ALT 31 Alkaline Phosphatase 70 Total Protein 7.3 Albumin 3.6 Globulin 3.7 Albumin/Globulin Ratio 1.0 Radiography Diagnostic Testing: Clinical Impression(s) from Imaging Studies Hip/Pelvis X-Ray 04/28/24 07:10 IMPRESSION: Degenerative changes. No fracture or dislocation is seen. Electronically Signed: Jimenez Fuentes MD at 8:05 EDT , Pelvis CT 04/28/24 07:31 IMPRESSION: Nondisplaced fracture of the medial portion of the right superior and inferior pubic rami. Electronically Signed: Jimenez Fuentes MD at 8:25 EDT , Discharge Plan Triage Chief Complaint: Fall ED Provider: Colin Mccarthy Dx/Rx/DC Orders Prescriptions: No Action levothyroxine 75 MCG tablet 75 mcg PO DAILY Primary Care Provider: Jessa Alberto Referrals: Jessa Alberto MD [Primary Care Provider] - Print Language: Citizen Of [place]
--- NOTE | 2024-04-28 07:31 | CT_ITS ---
STUDY: CT PELVIS WITHOUT CONTRAST REASON FOR EXAM: Female, 89 years old. Pelvic pain following a fall. RADIATION DOSAGE (If Supplied By Facility): CTDIvol = ( 28.67 ) mGy, DLP = ( 844.50 ) mGycm TECHNIQUE: Transaxial imaging of the pelvis was performed with oral contrast, and without intravenous administration of contrast material. Multiplanar coronal and sagittal images were reformatted. Individualized dose optimization techniques were used for this CT. COMPARISON: Comparison is made with prior radiographs done earlier in the day. FINDINGS: There is a subtle nondisplaced fracture through the medial portion of the right superior pubic ramus and right inferior pubic ramus. Degenerative changes of the sacroiliac joints bilaterally as well as the symphysis pubis with sclerosis. Prior ORIF of a left intertrochanteric fracture. CT/Pelvis without IV Contrast IMPRESSION: Nondisplaced fracture of the medial portion of the right superior and inferior pubic rami. Electronically Signed: Jimenez Fuentes MD at 8:25 EDT ,
[2024-04-28] MEDS: Ondansetron 4 MG/2 ML Vial IV (07:51)
[2024-04-28] MEDS: Morphine 4 MG/ML Syringe IV (07:52)
[2024-04-28 08:11] LABS: Absolute Lymphocyte Count 1.65 X10^3/uL (0.83-4.51); Absolute Neutrophil Count 9.1 X10^3/uL (2.0-7.7); Basophil# 0.04 X10^3/uL; Basophil% 0.3 % (0-1); Eosinophil# 0.05 X10^3/uL; Eosinophils% 0.4 % (0-5); Hematocrit 43.4 % (37-47); Hemoglobin 14.5 g/dL (12.0-15.0); Lymphocyte # 1.65 X10^3/ul (0.83-4.51); Lymphocyte % 14.1 % (19-41); Mean Corp Hgb Conc 33.4 g/dL (32-36); Mean Corpuscular Hgb 30.9 pg (27.0-32.0); Mean Corpuscular Volume 92.3 fL (81-99); Mean Platelet Vol. 10.9 fl (6.2-12.0); Monocyte# 0.74 X10^3/uL; Monocyte% 6.3 % (0-10); NRBC Flagged by Analyzer 0 % (0-5); Neutrophil # 9.14 X10^3/uL (2.7-7.7); Neutrophil % 78.2 % (47-70); Platelet Count 216 K/mm3 (150-450); RBC Distribution Width CV 12.4 % (11.6-14.6); White Blood Count 11.7 K/mm3 (4.4-11.0)
[2024-04-28 08:32] LABS: AST(SGOT) 28 U/L (15-37); Alanine Aminotransfer ALT/SGPT 31 U/L (13-56); Albumin, Serum 3.6 g/dL (3.2-5.0); Alkaline Phosphatase 70 U/L (45-117); Anion Gap 8 (5-15); BUN 17 mg/dL (7-18); BUN/Creat Ratio 21.4 RATIO (10-20); Calcium,Total 9.2 mg/dL (8.5-10.1); Chloride 106 mmol/L (98-107); EST Glomerular Filtration Rate 73 mL/min (>60); Est Glom Filt Rate - Afr Amer 88 mL/min (>60); Estimated Creatinine Clearance 48.55 ml/min; Globulin 3.7 g/dL (2.2-4.2); Glucose 189 mg/dL (74-106); Protein, Total 7.3 g/dL (6.4-8.2); Sodium Level 139 mmol/L (136-145)
[2024-04-28 08:48] VITALS: BP 159/93; PULSE 82; RESP 16; O2SAT 96
[2024-04-28 10:00] VITALS: BP 150/89; PULSE 82; RESP 16; O2SAT 96
[2024-04-28 12:00] VITALS: BP 168/90; PULSE 77; RESP 18; TEMP 36.6; O2SAT 95
== END 2024-04-28 12:19 | disposition home or self-care (01) ==
PROVIDERS: Emergency Provider Emergency Medicine; PCP Family Medicine; Visit Provider Emergency Medicine
DX: S32.511A Fracture of superior rim of right pubis, initial encounter for closed fracture (principal); S32.591A Other specified fracture of right pubis, initial encounter for closed fracture; W18.30XA Fall on same level, unspecified, initial encounter; M54.2 Cervicalgia; I10 Essential (primary) hypertension; E03.9 Hypothyroidism, unspecified; Z79.890 Hormone replacement therapy
CPT/HCPCS: 72192; 73502; 80053; 85025; 96374; 96375; 99283; J7040; A4216; J2405

== ENCOUNTER → 2024-10-28 | Outpatient (CLI) | payer MEDICARE, SELFPAY ==
[2024-10-28 12:01] LABS: Absolute Lymphocyte Count 2.63 X10^3/uL (0.83-4.51); Absolute Neutrophil Count 6.2 X10^3/uL (2.0-7.7); Basophil# 0.05 X10^3/uL; Basophil% 0.5 % (0-1); Eosinophil# 0.14 X10^3/uL; Eosinophils% 1.4 % (0-5); Hematocrit 44.4 % (37-47); Hemoglobin 14.6 g/dL (12.0-15.0); Lymphocyte # 2.63 X10^3/ul (0.83-4.51); Lymphocyte % 26.8 % (19-41); Mean Corp Hgb Conc 32.9 g/dL (32-36); Mean Corpuscular Hgb 31.1 pg (27.0-32.0); Mean Corpuscular Volume 94.5 fL (81-99); Mean Platelet Vol. 10.9 fl (6.2-12.0); Monocyte# 0.76 X10^3/uL; Monocyte% 7.7 % (0-10); NRBC Flagged by Analyzer 0 % (0-5); Neutrophil # 6.19 X10^3/uL (2.7-7.7); Platelet Count 253 K/mm3 (150-450); RBC Distribution Width CV 12.8 % (11.6-14.6); RBC Distribution Width SD 44.5 fl (35.1-43.9); White Blood Count 9.8 K/mm3 (4.4-11.0)
[2024-10-28 15:56] LABS: AST(SGOT) 33 U/L (15-37); Alanine Aminotransfer ALT/SGPT 48 U/L (13-56); Albumin, Serum 3.8 g/dL (3.2-5.0); Alkaline Phosphatase 93 U/L (45-117); Anion Gap 5 (5-15); BUN 15 mg/dL (7-18); BUN/Creat Ratio 16.6 RATIO (10-20); Calcium,Total 9.4 mg/dL (8.5-10.1); Chloride 102 mmol/L (98-107); EST Glomerular Filtration Rate 63 mL/min (>60); Est Glom Filt Rate - Afr Amer 76 mL/min (>60); Globulin 3.8 g/dL (2.2-4.2); Glucose 236 mg/dL (74-106); Potassium 4.1 mmol/L (3.5-5.1); Protein, Total 7.6 g/dL (6.4-8.2); Sodium Level 139 mmol/L (136-145)
[2024-10-31 18:06] LABS: BNP,B-Type NATRIURETIC PEPTIDE 49.5 pg/mL (0-100)
== END | disposition home or self-care (01) ==
LOC: MTLAB 10:51
PROVIDERS: PCP Family Medicine; Referring Provider Family Medicine; Visit Provider Family Medicine
DX: E11.9 Type 2 diabetes mellitus without complications (principal); I10 Essential (primary) hypertension; E03.9 Hypothyroidism, unspecified
CPT/HCPCS: 36415; 80053; 83880; 84443; 85025

== ENCOUNTER → 2025-05-31 | Outpatient (CLI) | payer MEDICARE, SELFPAY | END | disposition home or self-care (01) | LOC: LABSPEC 15:14 | PROVIDERS: PCP Family Medicine; Visit Provider Nurse Practitioner Family | DX: L97.919 Non-pressure chronic ulcer of unspecified part of right lower leg with unspecified severity (principal) | CPT/HCPCS: 87070; 87077; 87186; 87205 ==

== ENCOUNTER → 2025-07-27 | Outpatient (CLI) | payer MEDICARE, SELFPAY ==
[2025-07-27 15:08] LABS: Hematocrit 39.3 % (37-47); Hemoglobin 12.9 g/dL (12.0-15.0); Immature Granulocytes Count 0.360 X10^3/uL (0.0-0.0); Mean Corp Hgb Conc 32.8 g/dL (32-36); Mean Corpuscular Volume 94.0 fL (81-99); Mean Platelet Vol. 10.1 fl (6.2-12.0); NRBC Flagged by Analyzer 0 % (0-5); Platelet Count 392 K/mm3 (150-450); RBC Distribution Width CV 15.0 % (11.6-14.6); RBC Distribution Width SD 51.8 fl (35.1-43.9); Red Blood Count 4.18 M/mm3 (4.2-5.4); White Blood Count 15.7 K/mm3 (4.4-11.0)
[2025-07-27 15:31] LABS: Pro- Brain NATRIURETIC PEPTIDE 244 pg/mL (<=1800)
[2025-07-27 16:49] LABS: AST(SGOT) 31 U/L (<=31); Alanine Aminotransfer ALT/SGPT 29 U/L (<=34); Albumin, Serum 4.1 g/dL (3.4-4.8); Alkaline Phosphatase 79 U/L (35-104); BUN 78 mg/dL (4-19); Calcium,Total 9.3 mg/dL (7.6-11.0); Carbon Dioxide 18.1 mmol/L (21.0-32.0); Glucose 203 mg/dL (70-99)
[2025-07-27 16:50] LABS: Anion Gap 15 (5-15); BUN/Creat Ratio 41.8 RATIO (10-20); Chloride 94 mmol/L (98-108); Globulin 3.8 g/dL (2.2-4.2)
[2025-07-28 08:42] LABS: Potassium 6.0 mmol/L (3.3-5.1)
== END | disposition home or self-care (01) ==
LOC: BFHLAB 12:08
PROVIDERS: PCP Family Medicine; Visit Provider Family Medicine
DX: E11.9 Type 2 diabetes mellitus without complications (principal); I10 Essential (primary) hypertension; E03.9 Hypothyroidism, unspecified
CPT/HCPCS: 36415; 80053; 83880; 84443; 85025

== ENCOUNTER 2025-08-09 08:45 | Outpatient (RCR) | payer MEDICARE, MEDICAID, SELFPAY ==
[2025-08-02 09:45] VITALS: BP 115/66; PULSE 93; RESP 18; TEMP 36; BMI 30.1
--- NOTE | 2025-08-02 13:51 | HP.PCM_ITS ---
History of Present Illness Date of Service: 08/02/25 Chief Complaint: Follow-up bilateral lower leg edema with ulcerations History of Wound: 89-year-old white female that still lives alone her son visits most days and has mild dementia developed ulcers in her lower extremities and has been seen in her primary care and been using Unna boots. They were doing very well and then all of a sudden stopped working totally. Now she has got almost circumferential ulcers to both bilateral lower legs with an odor and a lot of slough and devitalized tissue. Patient was sent here on by her physician on cefdinir and doxycycline. Son has finally ordered home health to start this coming week and she has a home care group that will come in and take care of her personal care and help her get around. There is no shower or only a tub on the first floor so they will be bed bath thing her until they can get a shower and going onto the first floor. Her other problem is she refuses to lay in her bed or sit in her lounge chair she sits on the couch with her legs down all day and all night. [facility] Medical History Irritable bowel Restless legs Overweight (BMI 25.0-29.9) Bilateral pulmonary embolism COVID-19 Acute hypoxemic respiratory failure Hypothyroidism Hypertension Home Medications Medication Instructions Recorded Last Taken Type levothyroxine 75 mcg tablet 75 mcg PO DAILY THYROID 04/27/24 History oxycodone-acetaminophen 5 mg-325 1 tab PO Q6H PRN PRN Pain 3 days 04/28/24 Unknown Rx mg tablet #12 TABLETS cefdinir 300 mg capsule 300 mg PO BID nausea 5 Unknown History doxycycline monohydrate 100 mg 100 mg PO BID 08/02/25 Unknown History tablet furosemide 40 mg tablet 40 mg PO BID PRN PRN swellin g 08/02/25 Unknown History lisinopril 5 mg tablet 5 mg PO BID 08/02/25 Unknown History metolazone 2.5 mg tablet 2.5 mg PO DAILY 08/02/25 Unk nown History silver sulfadiazine 1 % topical applic topical 5 Unknown History cream sitagliptin phosphate 25 mg tablet 25 mg PO DAILY 07/17 06/09 Unknown History (Januvia) Allergy/AdvReac Type Severity Reaction Status Date / Time No Known Allergies Allergy Verified 02/12/23 19:03 Family History Mother Cancer Surgical History History of appendectomy S/P hysterectomy Social History household members: other details: Notes her son lives with her. Smoking Status: Never smoker alcohol intake: never substance use type: does not use ROS Constitutional Constitutional: Reports systems reviewed and no addt'l complaints, except as documented Eyes Eyes: Reports systems reviewed and no addt'l complaints, except as documented ENT HEENT: Reports systems reviewed and no addt'l complaints, except as documented Cardiovascular Cardiovascular: Reports systems reviewed and no addt'l complaints, except as documented Respiratory/Chest Respiratory/Chest: Reports systems reviewed and no addt'l complaints, except as documented Gastrointestinal Gastrointestinal: Reports systems reviewed and no addt'l complaints, except as documented Genitourinary Genitourinary: Reports systems reviewed and no addt'l complaints, except as documented Musculoskeletal Musculoskeletal: Reports systems reviewed and no addt'l complaints, except as documented Integumentary Integumentary: Reports wounds and other Details: Ulcerations on bilateral lower legs with odor up to from ankles to knees. Bilateral lower legs with severe edema. Bottom of the right foot has 2 blackened spot areas also. Neurologic Neurologic: Reports systems reviewed and no addt'l complaints, except as documented Psychiatric Psychiatric: Reports systems reviewed and no addt'l complaints, except as documented Endocrine Endocrinology: Reports systems reviewed and no addt'l complaints, except as documented Hematologic/Lymphatic Hematologic/Lymphatic: Reports systems reviewed and no addt'l complaints, except as documented Allergic/Immunologic Allergic/Immunologic: Reports systems reviewed and no addt'l complaints, except as documented Vital Signs Vital Signs Vital Signs: 08/02/25 09:45 Temperature 96.8 F L Temperature Source Temporal Pulse Rate 93 Respiratory Rate 18 Blood Pressure 115/66 Blood Pressure Mean 82 Blood Pressure Source Monitor Blood Pressure Position Semi-Fowlers Blood Pressure Location Left Arm Weight Weight: 170 lb Body Mass Index (BMI) 30.1 Physical Exam Const oriented x3 General Appearance: cooperative Exam Limitations: no limitations HEENT normocephalic Head and Scalp: normal to inspection Face and Sinus: normal facial exam Nose: external nose normal General Ear: hearing grossly impaired External Ear: external ears normal Eyes PERRL General Eye: normal appearance of both eyes Neck full ROM General: normal visual inspection Resp normal respiratory effort Effort and Inspection: able to speak in complete sentences Auscultation: clear to auscultation bilaterally Cardio regular rate and regular rhythm Palpation: normal PMI Rate: regular rate Rhythm: regular rhythm GI Palpation: soft Extremity General Extremity: normal exam except as noted and edema Skin Skin Narrative: Open ulcers on the lower extremities of bilateral lower legs with on the right foot ball has a blackened area 1 on the toe and 1 on the ball of the foot Neuro oriented x3 Psych Appearance: grossly normal Speech: normal speech Thought Content: normal thought content Judgement: judgement good Debridement Note Debridement Note Wound debrided: Right leg cluster arterial venous ulcers Laterality: Right Type of Debridement: Excisional debridement Anesthesia Used: 5% Lidocaine Gel Depth: in the subcutaneous layer Percentage of wound debrided: 80 Instrument Used: 5mm curette Severity: Fat Layer Exposed Amount of bleeding with debridement: Mild Bleeding Controlled with: Compression and gauze Patient tolerated procedure: Patient tolerated procedure well Post-Debridement Measurements and Additional Note: Post-Debridement Measurements/Treatment - Nurse 1 - General Ulcer Assessment Start: 08/02/25 09:45 Freq: Status: Active Protocol: [email or web address] Activity Type Activity Date Activity User E-sign Co-sign Detail Recorded Client Recorded Date Recorded By Document 08/02/25 09:45 [id number] 08/02/25 09:56 RB 08/02/25 09:45 - Today's Visit Information Type of service Initial Visit Arrival Mode Wheelchair Transfer Assistance Manual Patient Identification Verified (Name & Yes ) Height and Weight Height 5 ft 3 in Weight 170 lb Weight in Pounds 170.0 lbs Body Mass Index (BMI) 30.1 BMI Classification Obese Vital Signs Temperature (97.8 F-99.1 F) 96.8 F L Temperature Source Temporal Pulse Rate (60-100) 93 Pulse Location Monitor Respiratory Rate (12-18) 18 Respiratory rate source Observation Blood Pressure (90/60-120/80) 115/66 Blood Pressure Mean 82 Source Monitor Position Semi-Fowlers Blood Pressure Location Left Arm History Since Last Visit- (Skip if this is Patient's initial visit) Have you changed medications since your No last visit? Any new allergies or adverse reactions No Had a fall/change in ADL's that may No increase risk of falls Signs or symptoms of abuse and/or No neglect since last visit Have you been in the hospital since your No last visit? Has dressing in place as prescribed Yes Has compression in place as prescribed Yes Has offloadiing in place as prescribed N/A Experienced any changes in pain level or No management Left Footwear Regular Shoe Right Footwear Regular Shoe Pain Scale: 0-10 Numeric Is Patient Pain Free? No BLE -Description Burning,Aching -Intensity 5 -Duration (hours) Acute -Pain Behavior Withdrawal from Touch -Pain Aggravating Factors ADL's,Exercise/ Activity, Walking -Alleviating Factors/Interventions Medication -Effectiveness of Alleviating Factor/ Minimally Intervention effective Lower Extremity Assessment/ Foot Assessment/ Toe Nail Assessment Right -Posterior Tibial Palpable Yes -Dorsalis Pedis Palpable Yes -Extremity Color Hemosiderin -Hair Growth on Legs No -Hair Growth on Toes No -Temperature of Extremity Cool -Capillary Refill Greater than 3 Seconds -Dependent Rubor No -Blanched when Elevated No -Lipodermatosclerosis No -Other Deformity No -Prior Foot Ulcer No -Charcot Joint No -Prior Amputation No -Thick Yes -Discolored Yes -Deformed Yes -Improper Length & Hygeine No Left -Posterior Tibial Palpable Yes -Dorsalis Pedis Palpable Yes -Extremity Color Hemosiderin -Hair Growth on Legs No -Hair Growth on Toes No -Temperature of Extremity Cool -Capillary Refill Less than 3 Seconds -Dependent Rubor No -Blanched when Elevated No -Lipodermatosclerosis No -Other Deformity No -Prior Foot Ulcer No -Charcot Joint No -Prior Amputation No -Thick Yes -Discolored Yes -Deformed Yes -Improper Length & Hygeine No Neuropathy Assessment Feet - Top Side and Bottom <Entered> (a) Communication Assessment Preferred language Hungarian Director Facilities Maintenance Required No Able to Read Yes Able to Write Yes Communication Tools None Right Hearing Abillity Hard of Hearing Left Hearing Abillity Hard of Hearing Visual Assistive Devices Glasses Teaching Assessment Preferences Verbal,Written, Demonstration Barriers to Learning None Readiness To Learn Poor Willingness to Engage in Self Management Low Activies Readiness to Engage in Self Management Low Activities Anxiety Level Anxious Cooperation Cooperative Perception Coherent Interest in Health Problem Asks Questions Education Importance Acknowledges Need Does Patient Smoke tobacco or other No substances Smoking Status Never smoker Is Patient Diabetic Yes Functional Assessment Recent Decline in Ability to Perform Denies Any Declines Assistive Device With Patient No Culture/Baptist/Vessel Scrapper Helper Cultural/Baptist Needs that may affect No Treatment Plan Would you allow our hospital dough catcher to No meet you for the purpose of spiritual/ emotional support? Vessel Scrapper Helper to contact place of sabianist No Teaching: Wound Center *Welcome to the Wound Center -Person Taught Patient -Teaching Method Discussion, Demonstration -Response to teaching Verbalize Understanding (a) 1 - + throughout WC - Nurse 1 - General Ulcer Measurement Start: 08/02/25 09:45 Freq: Status: Active Protocol: Activity Type Activity Date Activity User E-sign Co-sign Detail Recorded Client Recorded Date Recorded By Document 08/02/25 09:45 RB [id number] 08/02/25 09:56 RB 08/02/25 09:45 Wound Center Nurse 1 LLE cluster -Combined with other wound No -Current Size (cm) - Length 9 -Current Size (cm) - Width 14 -Current Size (cm) - Depth 0.1 -Total Square Cm 126 -Photo Taken Yes -Tunneling No -Undermining/Tunneling No -Circular Undermining No -Exudate Amt Large -Exudate Type Serosanguineous -Wound Margin Distinct, Outline Attached -Granulation Amt Medium (34-66%) -Granulation Quality [place] -Slough/Fibrin Yes -Necrosis Amt Small (1-33%) -Necrotic Tissue Type Adherent Slough -Structure Exposed N/A -Texture (Bette-wound Skin Appearance) Assessed, Excoriation -Moisture (Bette-wound Skin Appearance) Maceration -Color (Bette-wound Skin Appearance) Assessed -Temperature (Bette-wound Skin No Abnormality Appearance) (Pt Warm) -Tenderness on Palpation (Bette-wound No Skin Appearance) -Ulcer Cleansing Wound Cleanser -Foul Odor after Cleansing No -Anesthetic Used 4% Lidocaine Solution RLE cluster -Combined with other wound No -Current Size (cm) - Length 22 -Current Size (cm) - Width 9.5 -Current Size (cm) - Depth 0.1 -Total Square Cm 209.0 -Photo Taken Yes -Tunneling No -Undermining/Tunneling No -Circular Undermining No -Exudate Amt Large -Exudate Type Serosanguineous -Wound Margin Distinct, Outline Attached -Granulation Amt Large (67-100%) -Granulation Quality [place] -Slough/Fibrin Yes -Necrosis Amt Medium (34-66%) -Necrotic Tissue Type Adherent Slough -Structure Exposed N/A -Texture (Bette-wound Skin Appearance) Assessed, Excoriation -Moisture (Bette-wound Skin Appearance) Maceration -Color (Bette-wound Skin Appearance) Assessed -Temperature (Bette-wound Skin No Abnormality Appearance) (Pt Warm) -Tenderness on Palpation (Bette-wound No Skin Appearance) -Ulcer Cleansing Wound Cleanser -Foul Odor after Cleansing No -Anesthetic Used 4% Lidocaine Solution Lower Limb Edema Present Yes Right Calf (cm) 42 Right Ankle (cm) 23.5 Left Calf (cm) 46 Left Ankle (cm) 24.8 WC - Nurse 2 - General Ulcer CM Notes Start: 08/02/25 09:45 Freq: Status: Active Protocol: Activity Type Activity Date Activity User E-sign Co-sign Detail Recorded Client Recorded Date Recorded By Document 08/02/25 10:21 [facility] [id number] 08/02/25 10:41 [facility] 08/02/25 10:21 Wound Center Nurse 2 LLE cluster -Time 10:28 -Correct Patient Yes -Correct Side, Site, Position Yes -Correct Procedure Yes -Procedure Performed Yes -Type of Procedure Debridement -Clinical Debridement Subcutaneous -Tissue Removed Subcutaneous -Post Debridement (cm) - Length 5.5 -Post Debridement (cm) - Width 8 -Post Debridement (cm) - Depth 0.2 -Total Square (Post) (cm) 44.0 -Area of Debridement (cm) - Length 5.5 -Area of Debridement (cm) - Width 0.2 -Total Square (Area) (cm) 1.10 -Tunneling No -Undermining/Tunneling No -Circular Undermining No -Wound/Ulcer Outcome Not Healed -Ulcer Cleansing Rinsed/ Irrigated with Saline -Foul Odor after Cleansing No -Bioengineered Tissue No -Bleeding Controlled with Pressure -Treatment Response Procedure Tolerated Well -Debridement - Subq, 1st 20sq cm No RLE cluster -Time 10:27 -Correct Patient Yes -Correct Side, Site, Position Yes -Correct Procedure Yes -Procedure Performed Yes -Type of Procedure Debridement -Clinical Debridement Subcutaneous -Tissue Removed Subcutaneous -Post Debridement (cm) - Length 8.5 -Post Debridement (cm) - Width 9.5 -Post Debridement (cm) - Depth 0.3 -Total Square (Post) (cm) 80.75 -Area of Debridement (cm) - Length 8.5 -Area of Debridement (cm) - Width 9.5 -Total Square (Area) (cm) 80.75 -Tunneling No -Undermining/Tunneling No -Circular Undermining No -Wound/Ulcer Outcome Not Healed -Ulcer Cleansing Rinsed/ Irrigated with Saline -Foul Odor after Cleansing No -Bioengineered Tissue No -Bleeding Controlled with Pressure -Treatment Response Procedure Tolerated Well -Debridement - Subq, 1st 20sq cm Yes -Debridement, SubQ, ea addt'l 20sq cm 6 or part thereof Pain Scale: 0-10 Numeric Is Patient Pain Free? Yes - Nurse 3 - General Ulcer D/C NN Start: 08/02/25 09:45 Freq: Status: Active Protocol: Activity Type Activity Date Activity User E-sign Co-sign Detail Recorded Client Recorded Date Recorded By Document 08/02/25 11:31 [id number] 08/02/25 11:32 [email or web address] 08/02/25 11:31 Wound Care Center Nurse 3 LLE cluster -Ulcer Cleansing Wound Cleanser -Primary Dressing Applied Aquacel AG 4x4 -Other Dressing abd -Primary Dressing Covered/Secured with Dry Gauze,Dry Gauze & Roll Gauze,Secured with Tape -Aquacel AG 4x4 1 RLE cluster -Ulcer Cleansing Wound Cleanser -Primary Dressing Applied Aquacel AG 4x4 -Primary Dressing Covered/Secured with Dry Gauze,Dry Gauze & Roll Gauze,Secured with Tape -Aquacel AG 4x4 1 BLE -Tubular Bandage Double Layer -Size of Tubigrip Used Size F -Size F ($) 4 Treatment Response Procedure Tolerated Well Pain Scale: 0-10 Numeric Is Patient Pain Free? Yes - Visit Discharge Discharge Condition Stable Ambulatory Status Wheelchair Transportation Private Auto Accompanied by son Medication Reconcilliation completed & No provided to patient/care provider Clinical Summary of Care Provided Yes Additional Wound Wound debrided: Venous arterial ulcers Laterality: Left Type of Debridement: Excisional debridement Anesthesia Used: 5% Lidocaine Gel Depth: in the subcutaneous layer Percentage of wound debrided: 80 Instrument Used: 5mm curette Tissue Removed: Devitalized slough and some fibrin Severity: Fat Layer Exposed Amount of bleeding with debridement: Mild Bleeding Controlled with: Compression and gauze Patient tolerated procedure: Patient tolerated procedure well Assessment/Plan Assessment/Plan (1) 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: CODE(S): L97.909 - Non-pressure chronic ulcer of unspecified part of unspecified lower leg with unspecified severity; I99.8 - Other disorder of circulatory system PLAN: Wash bilateral lower legs with antibacterial soap and water apply Aquacel silver to wounds on legs cover with ABDs and Lotus and then double layer Tubigrip to bilateral lower legs Follow-up in 1 week (2) Edema of both lower legs: CODE(S): R60.0 - Localized edema (3) Nonhealing skin ulcer with fat layer exposed: CODE(S): L98.492 - Non-pressure chronic ulcer of skin of other sites with fat layer exposed (4) Dementia: CODE(S): F03.90 - Unspecified dementia, unspecified severity, without behavioral disturbance, psychotic disturbance, mood disturbance, and anxiety QUALIFIERS: Dementia type: vascular dementia Dementia severity: moderate Dementia behavioral or psychological symptom: with anxiety Qualified Code(s): F01.B4 - Vascular dementia, moderate, with anxiety (5) Hypertension: CODE(S): I10 - Essential (primary) hypertension QUALIFIERS: Hypertension type: unspecified Qualified Code(s): I10 - Essential (primary) hypertension (6) Debility: CODE(S): R53.81 - Other malaise
--- NOTE | 2025-08-02 14:10 | WC ---
PHOTO - RLE 08/02/25
--- NOTE | 2025-08-02 14:11 | WC ---
Addendum entered by Luca Simmons 08/02/25 14:13: THIS IS A PICTURE OF LEFT LE NOT RIGHT Original Note: PHOTO- RLE 08/02/25
--- NOTE | 2025-08-02 14:13 | WC ---
PHOTO - RLE 08/02/25
--- NOTE | 2025-08-04 13:43 | WC ---
called pt in regards to positive WC result. spoke with pt and son Isacc. pt is to stop Cefdinir and doxy antibiotic. cont. Metronidazole pt been on since thursday and will be adding ciprofloxacin 500mg 1 tab po BID [id number]. this script was called into [facility].
[2025-08-09 08:55] VITALS: BMI 30.1
--- NOTE | 2025-08-09 10:58 | PN.PCM_ITS ---
History of Present Illness Date of Service: 08/09/25 Chief Complaint: Follow-up bilateral lower leg edema with ulcerations History of Wound: 89-year-old white female that still lives alone her son visits most days and has mild dementia developed ulcers in her lower extremities and has been seen in her primary care and been using Unna boots. They were doing very well and then all of a sudden stopped working totally. Now she has got almost circumferential ulcers to both bilateral lower legs with an odor and a lot of slough and devitalized tissue. Patient was sent here on by her physician on cefdinir and doxycycline. Son has finally ordered home health to start this coming week and she has a home care group that will come in and take care of her personal care and help her get around. There is no shower or only a tub on the first floor so they will be bed bath thing her until they can get a shower and going onto the first floor. Her other problem is she refuses to lay in her bed or sit in her lounge chair she sits on the couch with her legs down all day and all night. Progress of Wound: So within the week the legs have improved immensely just with getting him cleaned up and and care that she is getting from home health and personal care person. While they are there they try to get her into the lounge chair to get her legs elevated while they are doing dressing changes but she pouches and complains that she cannot stand the pain but I think that is just her I think she could tolerate it she is just control. Still too hard to debride on her so I am counting on the Aquacel Ag to take off most of the slough as we compress her legs and she noticed some around her knees from sitting so much she is got some indentation so organ to try to put a cuff around the top of the legs to keep the pressure off and keep her from developing any more ulcers. She is currently taking ciprofloxacin and metronidazole for the ulcers and she did have cocci and bacteria on her legs. Subjective Subjective The son is very grateful and he feels there is an improvement in the legs also he still says they hurt her so much and I said well the redness is improving the whole total leg was red and rale last week it is starting to diminish and I told him it is just that we need to keep her on the antibiotics to let them do their work and the fact that she is not elevating does not help but her compression stockings are helping and her feet are not swollen. I told him that the home health care is helping a lot with her care and improvements. We will continue with the same dressing changes for now and he is to encourage her to sit lay down or to get into her lounge chair she still refuses to sleep in bed or to sit in the lounge chair for any length of time. She refuses to elevate her legs at all Objective Data Objective Data So she did have positive cultures and anaerobes so we are on to an antimicrobial and an antibiotic. She is tolerating them well we were unable to debride properly so we are using the Aquacel Ag as the debridement I tried wiping but she just screams and is in so much pain over this. It is lifting and starting to come out measurements are better they are starting to become more decisive and not just blurred into the skin. On the ulcers. We will continue using the same wound care and continue with home health and personal care. No odor was noted this week on her legs. She is positive for bacteria but not for anaerobes. Vital Signs: Vital Signs Temp Pulse Resp BP 96.8 F L 93 18 115/66 08/02/25 09:45 08/02/25 09:45 08/02/25 09:45 08/02/25 09:45 Weight: 170 lb Body Mass Index (BMI) 30.1 Lab / Micro Data Attestation: I reviewed the patient's lab results. Micro: Microbiology 08/02/25 10:30 Wound - Other Gram Stain - Final 08/02/25 10:30 Wound - Other Wound Culture - Final Serratia marcescens Enterococcus faecalis Proteus mirabilis Providencia rettgeri 08/02/25 10:30 Wound - Other Anaerobic Culture - Final No anaerobic bacteria isolated. Physical Exam Const oriented x3 General Appearance: cooperative Exam Limitations: no limitations HEENT normocephalic Head and Scalp: normal to inspection Face and Sinus: normal facial exam Nose: external nose normal General Ear: hearing grossly impaired External Ear: external ears normal Eyes PERRL General Eye: normal appearance of both eyes Neck full ROM General: normal visual inspection Resp normal respiratory effort Effort and Inspection: able to speak in complete sentences Auscultation: clear to auscultation bilaterally Cardio regular rate and regular rhythm Palpation: normal PMI Rate: regular rate Rhythm: regular rhythm GI Palpation: soft Extremity General Extremity: normal exam except as noted and edema Skin Skin Narrative: Open ulcers on the lower extremities of bilateral lower legs with on the right foot ball has a blackened area 1 on the toe and 1 on the ball of the foot Neuro oriented x3 Psych Appearance: grossly normal Speech: normal speech Thought Content: normal thought content Judgement: judgement good Debridement Note Debridement Note No debridement was completed: No debridement was completed today Post-Debridement Measurements and Additional Note: Post-Debridement Measurements/Treatment - Nurse 1 - General Ulcer Assessment Start: 08/02/25 09:45 Freq: Status: Active Protocol: DOMINIK.[employer] Activity Type Activity Date Activity User E-sign Co-sign Detail Recorded Client Recorded Date Recorded By Document 08/02/25 09:45 RB [id number] 08/02/25 09:56 RB Document 08/09/25 08:55 CP [id number] 08/09/25 09:14 CP 08/02/25 08/09/25 09:45 08:55 - Today's Visit Information Type of service Initial Visit Arrival Mode Wheelchair Transfer Assistance Manual Patient Identification Verified (Name & Yes ) Height and Weight Height 5 ft 3 in Weight 170 lb Weight in Pounds 170.0 lbs Body Mass Index (BMI) 30.1 30.1 BMI Classification Obese Obese Vital Signs Temperature (97.8 F-99.1 F) 96.8 F L Temperature Source Temporal Pulse Rate (60-100) 93 Pulse Location Monitor Respiratory Rate (12-18) 18 Respiratory rate source Observation Blood Pressure (90/60-120/80) 115/66 Blood Pressure Mean (mm Hg) 82 Source Monitor Position Semi-Fowlers Blood Pressure Location Left Arm History Since Last Visit- (Skip if this is Patient's initial visit) Have you changed medications since your No last visit? Any new allergies or adverse reactions No Had a fall/change in ADL's that may No increase risk of falls Signs or symptoms of abuse and/or No neglect since last visit Have you been in the hospital since your No last visit? Has dressing in place as prescribed Yes Has compression in place as prescribed Yes Has offloadiing in place as prescribed N/A Experienced any changes in pain level or No management Left Footwear Regular Shoe Right Footwear Regular Shoe Pain Scale: 0-10 Numeric Is Patient Pain Free? No No BLE -Description Burning,Aching -Intensity 5 -Duration (hours) Acute -Pain Behavior Withdrawal from Touch -Pain Aggravating Factors ADL's,Exercise/ Activity, Walking -Alleviating Factors/Interventions Medication -Effectiveness of Alleviating Factor/ Minimally Intervention effective Lower Extremity Assessment/ Foot Assessment/ Toe Nail Assessment Right -Posterior Tibial Palpable Yes -Dorsalis Pedis Palpable Yes -Extremity Color Hemosiderin -Hair Growth on Legs No -Hair Growth on Toes No -Temperature of Extremity Cool -Capillary Refill Greater than 3 Seconds -Dependent Rubor No -Blanched when Elevated No -Lipodermatosclerosis No -Other Deformity No -Prior Foot Ulcer No -Charcot Joint No -Prior Amputation No -Thick Yes -Discolored Yes -Deformed Yes -Improper Length & Hygeine No Left -Posterior Tibial Palpable Yes -Dorsalis Pedis Palpable Yes -Extremity Color Hemosiderin -Hair Growth on Legs No -Hair Growth on Toes No -Temperature of Extremity Cool -Capillary Refill Less than 3 Seconds -Dependent Rubor No -Blanched when Elevated No -Lipodermatosclerosis No -Other Deformity No -Prior Foot Ulcer No -Charcot Joint No -Prior Amputation No -Thick Yes -Discolored Yes -Deformed Yes -Improper Length & Hygeine No Neuropathy Assessment Feet - Top Side and Bottom <Entered> (a) Communication Assessment Preferred language [place] Insurance Office Manager Required No Able to Read Yes Able to Write Yes Communication Tools None Right Hearing Abillity Hard of Hearing Left Hearing Abillity Hard of Hearing Visual Assistive Devices Glasses Teaching Assessment Preferences Verbal,Written, Demonstration Barriers to Learning None Readiness To Learn Poor Willingness to Engage in Self Management Low Activies Readiness to Engage in Self Management Low Activities Anxiety Level Anxious Cooperation Cooperative Perception Coherent Interest in Health Problem Asks Questions Education Importance Acknowledges Need Does Patient Smoke tobacco or other No substances Smoking Status Never smoker Is Patient Diabetic Yes Functional Assessment Recent Decline in Ability to Perform Denies Any Declines Assistive Device With Patient No Culture/Muslim/Atlassian Administrator Cultural/Muslim Needs that may affect No Treatment Plan Would you allow our hospital hose cementer to No meet you for the purpose of spiritual/ emotional support? Atlassian Administrator to contact place of sikhism No Teaching: Wound Center *Welcome to the Wound Center -Person Taught Patient -Teaching Method Discussion, Demonstration -Response to teaching Verbalize Understanding (a) 1 - + throughout WC - Nurse 1 - General Ulcer Measurement Start: 08/02/25 09:45 Freq: Status: Active Protocol: Activity Type Activity Date Activity User E-sign Co-sign Detail Recorded Client Recorded Date Recorded By Document 08/02/25 09:45 RB [id number] 08/02/25 09:56 RB Document 08/09/25 08:55 CP [id number] 08/09/25 09:14 CP 08/02/25 08/09/25 09:45 08:55 Wound Center Nurse 1 LLE cluster -Combined with other wound No -Current Size (cm) - Length 9 8 -Current Size (cm) - Width 14 7 -Current Size (cm) - Depth 0.1 0.1 -Total Square Cm 126 56 -Date of Last Picture (Recall this 08/09/25 field) -Photo Taken Yes Yes -Epithelialization None Present -Tunneling No No -Undermining/Tunneling No No -Circular Undermining No -Exudate Amt Large Medium -Exudate Type Serosanguineous Serous -Wound Margin Distinct, Flat & Intact Outline Attached -Granulation Amt Medium (34-66%) Large (67-100%) -Granulation Quality [place] -Slough/Fibrin Yes Yes -Necrosis Amt Small (1-33%) Large (67-100%) -Necrotic Tissue Type Adherent Slough Adherent Slough -Structure Exposed N/A N/A -Texture (Bette-wound Skin Appearance) Assessed, No Abnormality Excoriation -Moisture (Bette-wound Skin Appearance) Maceration No Abnormality -Color (Bette-wound Skin Appearance) Assessed Erythema -Temperature (Bette-wound Skin No Abnormality No Abnormality Appearance) (Pt Warm) (Pt Warm) -Tenderness on Palpation (Bette-wound No Yes Skin Appearance) -Ulcer Cleansing Wound Cleanser Soap and Water -Foul Odor after Cleansing No -Anesthetic Used 4% Lidocaine 4% Lidocaine Solution Solution RLE cluster -Combined with other wound No -Current Size (cm) - Length 22 5.5 -Current Size (cm) - Width 9.5 15 -Current Size (cm) - Depth 0.1 0.1 -Total Square Cm 209.0 82.5 -Date of Last Picture (Recall this 08/09/25 field) -Photo Taken Yes Yes -Tunneling No -Undermining/Tunneling No -Circular Undermining No -Exudate Amt Large Medium -Exudate Type Serosanguineous Serous -Wound Margin Distinct, Flat & Intact Outline Attached -Granulation Amt Large (67-100%) Large (67-100%) -Granulation Quality [place] -Slough/Fibrin Yes Yes -Necrosis Amt Medium (34-66%) Large (67-100%) -Necrotic Tissue Type Adherent Slough Adherent Slough -Structure Exposed N/A N/A -Texture (Bette-wound Skin Appearance) Assessed, No Abnormality Excoriation -Moisture (Bette-wound Skin Appearance) Maceration No Abnormality -Color (Bette-wound Skin Appearance) Assessed Erythema -Temperature (Bette-wound Skin No Abnormality No Abnormality Appearance) (Pt Warm) (Pt Warm) -Tenderness on Palpation (Bette-wound No Yes Skin Appearance) -Ulcer Cleansing Wound Cleanser Soap and Water -Foul Odor after Cleansing No No -Anesthetic Used 4% Lidocaine 4% Lidocaine Solution Solution Lower Limb Edema Present Yes Right Calf (cm) 42 36.5 Right Ankle (cm) 23.5 25 Left Calf (cm) 46 37 Left Ankle (cm) 24.8 27 WC - Nurse 2 - General Ulcer CM Notes Start: 08/02/25 09:45 Freq: Status: Active Protocol: Activity Type Activity Date Activity User E-sign Co-sign Detail Recorded Client Recorded Date Recorded By Document 08/02/25 10:21 [facility] [id number] 08/02/25 10:41 [facility] Document 08/09/25 09:50 [id number] 08/09/25 09:52 DS 08/02/25 08/09/25 10:21 09:50 Wound Center Nurse 2 LLE cluster -Time 10:28 09:50 -Correct Patient Yes Yes -Correct Side, Site, Position Yes Yes -Correct Procedure Yes -Procedure Performed Yes No -Type of Procedure Debridement -Clinical Debridement Subcutaneous -Tissue Removed Subcutaneous -Post Debridement (cm) - Length 5.5 9.0 -Post Debridement (cm) - Width 8 8.9 -Post Debridement (cm) - Depth 0.2 0.3 -Total Square (Post) (cm) 44.0 80.10 -Area of Debridement (cm) - Length 5.5 9.0 -Area of Debridement (cm) - Width 0.2 8.9 -Total Square (Area) (cm) 1.10 80.10 -Tunneling No -Undermining/Tunneling No -Circular Undermining No -Wound/Ulcer Outcome Not Healed Not Healed -Ulcer Cleansing Rinsed/ Irrigated with Saline -Foul Odor after Cleansing No -Bioengineered Tissue No -Bleeding Controlled with Pressure -Treatment Response Procedure Tolerated Well -Debridement - Subq, 1st 20sq cm No RLE cluster -Time 10:27 09:51 -Correct Patient Yes Yes -Correct Side, Site, Position Yes Yes -Correct Procedure Yes Yes -Procedure Performed Yes Yes -Type of Procedure Debridement Debridement -Clinical Debridement Subcutaneous Subcutaneous -Tissue Removed Subcutaneous Subcutaneous -Post Debridement (cm) - Length 8.5 23.0 -Post Debridement (cm) - Width 9.5 13.5 -Post Debridement (cm) - Depth 0.3 0.4 -Total Square (Post) (cm) 80.75 310.50 -Area of Debridement (cm) - Length 8.5 23.0 -Area of Debridement (cm) - Width 9.5 13.5 -Total Square (Area) (cm) 80.75 310.50 -Tunneling No No -Undermining/Tunneling No No -Circular Undermining No No -Wound/Ulcer Outcome Not Healed Not Healed -Ulcer Cleansing Rinsed/ Rinsed/ Irrigated with Irrigated with Saline Saline -Foul Odor after Cleansing No No -Bioengineered Tissue No No -Bleeding Controlled with Pressure Pressure -Treatment Response Procedure Procedure Tolerated Well Tolerated Well -Debridement - Subq, 1st 20sq cm Yes Yes -Debridement, SubQ, ea addt'l 20sq cm 6 15 or part thereof Pain Scale: 0-10 Numeric Is Patient Pain Free? Yes Yes WC - Nurse 3 - General Ulcer D/C NN Start: 08/02/25 09:45 Freq: Status: Active Protocol: Activity Type Activity Date Activity User E-sign Co-sign Detail Recorded Client Recorded Date Recorded By Document 08/02/25 11:31 RB [id number] 08/02/25 11:32 RB Document 08/09/25 10:26 CP [id number] 08/09/25 10:27 CP 08/02/25 08/09/25 11:31 10:26 Wound Care Center Nurse 3 LLE cluster -Ulcer Cleansing Wound Cleanser Rinsed/ Irrigated with Saline -Foul Odor after Cleansing No -Primary Dressing Applied Aquacel AG 4x4 Aquacel AG 4x4 -Other Dressing abd -Primary Dressing Covered/Secured with Dry Gauze,Dry Dry Gauze & Gauze & Roll Roll Gauze, Gauze,Secured Secured with with Tape Tape -Aquacel AG 4x4 1 1 RLE cluster -Ulcer Cleansing Wound Cleanser Rinsed/ Irrigated with Saline -Primary Dressing Applied Aquacel AG 4x4 Aquacel AG 4x4 -Primary Dressing Covered/Secured with Dry Gauze,Dry Dry Gauze & Gauze & Roll Roll Gauze, Gauze,Secured Secured with with Tape Tape -Aquacel AG 4x4 1 3 BLE -Tubular Bandage Double Layer Double Layer -Size of Tubigrip Used Size F Size E -Size E ($) 2 -Size F ($) 4 Treatment Response Procedure Tolerated Well Pain Scale: 0-10 Numeric Is Patient Pain Free? 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 Son is to do his best job and elevating her legs and to get her to lay down is much as possible. Follow-up in 1 week (2) Edema of both lower legs: CODE(S): R60.0 - Localized edema (3) Nonhealing skin ulcer with fat layer exposed: CODE(S): L98.492 - Non-pressure chronic ulcer of skin of other sites with fat layer exposed (4) Dementia: CODE(S): F03.90 - Unspecified dementia, unspecified severity, without behavioral disturbance, psychotic disturbance, mood disturbance, and anxiety QUALIFIERS: Dementia type: vascular dementia Dementia severity: moderate Dementia behavioral or psychological symptom: with anxiety Qualified Code(s): F01.B4 - Vascular dementia, moderate, with anxiety (5) Hypertension: CODE(S): I10 - Essential (primary) hypertension QUALIFIERS: Hypertension type: unspecified Qualified Code(s): I10 - Essential (primary) hypertension (6) Debility: CODE(S): R53.81 - Other malaise
--- NOTE | 2025-08-10 14:13 | WC ---
PHOTO-RLE CLUSTER 08/09/25
--- NOTE | 2025-08-10 14:18 | WC ---
PHOTO-LLE 08/09/25
== END 2025-08-15 23:59 | disposition home or self-care (01) ==
LOC: WC 08:45
PROVIDERS: PCP Family Medicine; Referring Provider Family Medicine; Visit Provider Nurse Practitioner
DX: I87.2 Venous insufficiency (chronic) (peripheral) (principal); L98.492 Non-pressure chronic ulcer of skin of other sites with fat layer exposed; F03.90 Unspecified dementia, unspecified severity, without behavioral disturbance, psychotic disturbance, mood disturbance, and anxiety; R60.0 Localized edema; I10 Essential (primary) hypertension; R53.81 Other malaise
CPT/HCPCS: 11042; 11045; 87070; 87075; 87077; 87186; 87205; 99214; G0463

== ENCOUNTER 2025-08-14 12:28 | Inpatient (IN) | payer MEDICARE, SELFPAY ==
[2025-08-14] VITALS (10 sets, daily range): BP systolic 103–143; BP diastolic 53–107; PULSE 81–112; RESP 13–20; TEMP 36.3–36.6; O2SAT 90–100; BMI 31.7; BMI 30.8
--- NOTE | 2025-08-14 12:52 | ED.RN ---
pt kaylan to give first name and birthday, she states the name of the hospital, son gave info on the history intake.
--- NOTE | 2025-08-14 13:12 | RAD_ITS ---
PROCEDURE: CHEST 1 VIEW (PORTABLE) 08/14/2025 REASON FOR EXAM: ALOC TECHNIQUE: Frontal view of the chest. COMPARISON: February 12, 2023 FINDINGS: There is cardiomegaly with mild central vascular congestion, similar to the prior. There is no focal infiltrate. There is blunting of the costophrenic angle on the left consistent with a moderate effusion. There is no pneumothorax. Aortic calcifications are noted. No acute bony abnormality is identified. RAD/Chest 1 View (Portable) IMPRESSION: There is cardiomegaly with mild central vascular congestion, similar to the adilene or. There is no focal infiltrate. There is blunting of the costophrenic angle on the left consistent with a moder ate effusion. Reading Location: [facility]
--- NOTE | 2025-08-14 13:12 | EKG12_ITS ---
Test Reason : Blood Pressure : */* mmHG Vent. Rate : 112 BPM Atrial Rate : * BPM P-R Int : * ms QRS Dur : 134 ms QT Int : 372 ms P-R-T Axes : * 101 16 degrees QTcB Int : 507 ms Sinus tachycardia Right bundle branch block Abnormal ECG Confirmed by MAR KILLIAN, YESY ([id number]), market editor NAPOLEON SAVAGE ([id number]) on 08/15/2025 8:04:44 AM Referred By: Confirmed By: YESY MANUEL MD
--- NOTE | 2025-08-14 13:14 | EX.ED.DYSGE1 ---
HPI History of Present Illness Chief Complaint: Confusion Informant: patient Onset/Context/Timing Onset: Days Context: Gradual Onset Timing: Continuous Current Severity: Mild Maximum Severity: Mild Narrative Narrative: 89-year-old female be worked up for possible dementia. Sent in for altered level consciousness and abnormal labs. Patient has a history of diabetes, pulmonary emboli hypertension. She is on a diuretic Lasix. She is a limited informant currently and there is no family with her. Prior similar symptoms: No Recent Illness/Hospitalization: No PFSH PFSH Medical History Diabetes Non-smoker Irritable bowel Restless legs Overweight (BMI 25.0-29.9) Bilateral pulmonary embolism COVID-19 Acute hypoxemic respiratory failure Hypothyroidism Hypertension Home Medications ?Medication ?Instructions ?Recorded ?Last Taken ?Type levothyroxine 75 mcg tablet 75 mcg PO DAILY THYROID 05/17/17 04/27/24 History oxycodone-acetaminophen 5 mg-325 1 tab PO Q6H PRN PRN Pain 3 days 04/28/24 Unknown Rx mg tablet #12 TABLETS furosemide 40 mg tablet 40 mg PO BID PRN PRN swelling 08/02/25 Unknown History lisinopril 5 mg tablet 5 mg PO BID 08/02/25 Unknown History metolazone 2.5 mg tablet 2.5 mg PO DAILY 08/02/25 Unknown History silver sulfadiazine 1 % topical applic topical 08/02/25 Unknown History cream sitagliptin phosphate 25 mg tablet 25 mg PO DAILY 08/02/25 Unknown History (Januvia) ciprofloxacin HCl 500 mg tablet 500 mg PO BID 08/09/25 Unknown History (Cipro) metronidazole 250 mg tablet 250 mg PO TID 08/09/25 Unknown History potassium chloride 20 mEq 20 meq PO DAILY 08/14/25 Unknown History tablet,extended release(part/cryst) Allergy/AdvReac Type Severity Reaction Status Date / Time No Known Allergies Allergy Verified 02/12/23 19:03 Family History Mother Cancer Surgical History History of appendectomy S/P hysterectomy Social History household members: other details: Notes her son lives with her. Smoking Status: Never smoker alcohol intake: never substance use type: does not use ROS ROS ED ROS Narrative Patient denies recent illness but limited due to her mental status. Review of Systems ROS Unobtainable: due to mental status Constitutional Constitutional ED: Denies fever(s) Eyes Eyes: Denies blurry vision ENT ENT ED: Denies ear pain Cardiovascular Cardiovascular: Denies chest pain Respiratory/Chest Respiratory/Chest: Denies cough Gastrointestinal Gastrointestinal: Denies abdominal pain, diarrhea or vomiting Genitourinary Genitourinary ED: Denies dysuria Musculoskeletal Musculoskeletal: Denies arthralgias Integumentary Denies abscess Neurologic Neurologic: Denies headache(s) Psychiatric Psychiatric: Denies anxiety Endocrine Endocrinology: Denies cold intolerance Hematologic/Lymphatic Hematologic/Lymphatic: Reports none Allergic/Immunologic Allergic/Immunologic ED: Denies mouth swelling, tongue swelling or urticaria EXAM Physical Exam Narrative Exam Narrative: 89-year-old female sitting upright in bed. Vital signs stable afebrile. Pulse ox 90% on room air borderline positive. No distress. H EENT exam pupils round react to light. Moist mutes membranes. No trauma. No facial droop. Normal speech. Neck nontender JVD. No lymphadenopathy. Back nontender. Lungs clear to auscultation bilaterally. Heart regular rhythm no murmur. Rate about 80. Chest wall ribs nontender. Abdomen soft nontender. No peritoneal signs. No obstruction. Moving all 4 extremities. 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 Dorsi plantarflexion intact. Both lower extremities have mild edema. There are lower leg wraps on both lower extremities. Neurologically she is awake. She is answering questions she is following commands. She did not know the month or year she did know she was at [facility]. Const Vital Signs: 08/14/25 12:29 08/14/25 13:32 08/14/25 14:00 Temperature 97.6 F L 97.6 F L 97.6 F L Temperature Source Oral Temporal Oral Pulse Rate 83 111 H 112 H Respiratory Rate 19 H 16 13 Blood Pressure 143/107 H 111/71 123/78 H Blood Pressure Mean 119 84 93 Pulse Ox 90 100 95 Oxygen Delivery Method Room Air Room Air Room Air Positive well nourished and well developed; Negative for cachectic, contractures or unkempt General Appearance ED: well developed and NAD; Negative for unkempt, cachectic, contractures, cyanotic, diaphoretic or pallor Nutritional Appearance: Negative for cachectic HEENT Reports moist mucous membranes Eyes PERRL and EOMs intact bilaterally General Eye ED: Negative for pale conjunctiva or scleral icterus Neck no lymphadenopathy, supple and no JVD Chest Wall inspection of chest normal and palpation of chest normal Resp normal respiratory effort and clear to auscultation bilaterally Cardio regular rate, regular rhythm, S1 normal heart sound, S2 normal heart sound and no murmurs GI normal to inspection, nondistended, normoactive bowel sounds, non-tender, non-distended and no masses Auscultation: normoactive bowel sounds Palpation: soft; Negative for tender, guarding, mass or rebound tenderness present Back/Spine no CVA tenderness General Back: Negative for CVA tenderness Cervical Spine: Negative for cervical spine tenderness Thoracic Spine / Upper Back: Negative for thoracic spinal tenderness or paraspinal muscle tenderness Lumbar Spine / Lower Back: Negative for lumbar spinal tenderness Extremity normal to inspection General Extremety ED: Negative for edema or tenderness General Extremity: Negative for edema Neuro No oriented x3 and CN's II-XII intact bilaterally Neuro Narrative: Knows place. Not month or year. Awake alert. Answering questions following commands. No focal motor deficits. Sensorium / Orientation: alert and orientation impaired; Negative for lethargic or stuporous Motor Exam: strength 5/5 throughout Psych mental status grossly normal Appearance: Negative for unkempt Skin no rashes or lesions noted, no wounds and skin turgor normal General Skin Exam: Negative for jaundice or pallor Lesions: No lesion noted Rashes: No rashes noted MDM MDM MDM Narrative Medical decision making narrative: 89-year-old female with altered level of consciousness may or may not have underlying dementia. With recent elevations in her BUN and creatinine. Sent in for further evaluation. Should be treated with IV fluids screening labs to be obtained and CAT scan of her brain. Repeat exam at 3:07 PM. I went over test results with patient and her son. She is severely dehydrated. Acute kidney injury. She is receiving IV fluids. I have the hospitalist on page for admission. History & Record Review Discussion w/independent historian: Patient Additional record(s) reviewed:: Prior inpatient record, Prior outpatient record, Prior ED visit and Prior labs Lab Data Attestation: I reviewed the patient's lab results. Lab results narrative: CBC is regulant 0.7. H&H 12.6 37.4. Platelets 213. Urinalysis shows greater than 100 white cells but no bacteria or nitrates. Culture will be sent. Chemistry shows sodium 138. Gap 16. BUN of 123 and creatinine of 4.25. These are significantly changed from prior. Glucose 120. CT brain chronic changes. Labs: Laboratory Results - last 24 hr 08/14/25 08/14/25 13:16 13:49 WBC 11.7 H RBC 3.94 L Hgb 12.6 Hct 37.4 MCV 94.9 MCH 32.0 MCHC 33.7 RDW Std Deviation 53.1 H RDW Coeff of Marguerite 15.3 H Plt Count 213 MPV 10.4 Immature Gran % (Auto) 2.000 H Neut % (Auto) 68.4 Lymph % (Auto) 15.2 L [place] % (Auto) 10.2 H Eos % (Auto) 3.6 Baso % (Auto) 0.6 Absolute Neuts (auto) 8.0 H Absolute Lymphs (auto) 1.78 Nucleated RBC % 0 Sodium 138 Potassium 4.8 Chloride 97 L Carbon Dioxide 25.1 Anion Gap 16 H BUN 123 H* Creatinine 4.25 H Estim Creat Clear Calc 9.06 L* Est GFR (MDRD) Non-Af 9 L BUN/Creatinine Ratio 28.9 H Glucose 120 H Calcium 8.8 Urine Color Yellow Urine Clarity Cloudy Urine pH 5.0 Ur Specific [place] 1.015 Urine Protein 30 H Urine Glucose (UA) Normal Urine Ketones Negative Urine Occult Blood 50 H Urine Nitrite Negative Urine Bilirubin Negative Urine Urobilinogen Normal Ur Leukocyte Esterase 500 H Urine RBC 0 SEEN Urine WBC >100 SEEN Ur Squamous Epith Cells 0 SEEN Urine Bacteria 0 SEEN Urine Mucus 0 SEEN Radiography Chest X-Ray - ED: 1 View, Read by ED Physician, Read by Radiologist, Heart, Lungs, Mediastinum, Bony Structures, Chronic Changes and Left Effusion Diagnostic Testing: Clinical Impression(s) from Imaging Studies Chest X-Ray 08/14/25 13:12 IMPRESSION: There is cardiomegaly with mild central vascular congestion, similar to the prior. There is no focal infiltrate. There is blunting of the costophrenic angle on the left consistent with a moderate effusion. Reading Location: [facility] Brain CT 08/14/25 13:25 IMPRESSION: 1. No evidence of intracranial hemorrhage or acute ischemia. 2. Changes of chronic microvascular ischemia and volume loss. Reading Location: [facility] Chest x-ray, portable, single view shows cardiomegaly. Small left pleural effusion. Chronic changes. No acute process. Interpreted by myself and radiologist. CT brain chronic changes no acute intracranial bleed. Rhythm Strip Rhythm Strip: Sinus Tach Rate: 112 Ectopy: None EKG Initial EKG: Attestation: I personally reviewed and interpreted this EKG as follows: Interpretation: No Acute Injury Pattern and Sinus Tachycardia Comments: Sinus tachycardia rate of 112. No acute signs of MD or ischemia. Right bundle branch block. Consistent with prior EKG. Prior EKG tracings: available for review Prior: Unchanged Discharge Plan Triage Chief Complaint: Confusion ED Provider: Jefferson Neal Dx/Rx/DC Orders Prescriptions: No Action levothyroxine 75 MCG tablet 75 mcg PO DAILY furosemide 40 mg tablet 40 mg PO BID PRN PRN (Reason: swelling) metolazone 2.5 mg tablet 2.5 mg PO DAILY silver sulfadiazine 1 % cream topical lisinopril 5 mg tablet 5 mg PO BID Januvia 25 mg tablet 25 mg PO DAILY metronidazole 250 mg tablet 250 mg PO TID ciprofloxacin HCl [Cipro] 500 mg tablet 500 mg PO BID potassium chloride 20 mEq tablet,ER particles/crystals 20 meq PO DAILY oxycodone-acetaminophen 5-325 mg tablet 1 tab PO Q6H PRN PRN (Reason: Pain) 3 Days Qty: 12 0RF Primary Care Provider: Jessa Alberto Referrals: Jessa Alberto MD [Primary Care Provider, Family Practice] Print Language: Latvian
[2025-08-14] MEDS: 0.9% Normal Saline (1000mL) 1,000 ML 1000 ML IV (13:23)
[2025-08-14 13:24] LABS: Hematocrit 37.4 % (37-47); Hemoglobin 12.6 g/dL (12.0-15.0); Immature Granulocytes Count 0.230 X10^3/uL (0.0-0.0); Mean Corp Hgb Conc 33.7 g/dL (32-36); Mean Corpuscular Volume 94.9 fL (81-99); Mean Platelet Vol. 10.4 fl (6.2-12.0); NRBC Flagged by Analyzer 0 % (0-5); Platelet Count 213 K/mm3 (150-450); RBC Distribution Width CV 15.3 % (11.6-14.6); RBC Distribution Width SD 53.1 fl (35.1-43.9); Red Blood Count 3.94 M/mm3 (4.2-5.4); White Blood Count 11.7 K/mm3 (4.4-11.0)
--- NOTE | 2025-08-14 13:25 | CT_ITS ---
PROCEDURE: BRAIN/HEAD WITHOUT CONTRAST 08/14/2025 REASON FOR EXAM: ALOC TECHNIQUE: Procedure Code: CTBR Modality: CT Procedure: BRAIN/HEAD WITHOUT CONTRAST Coronal and Sagittal reconstruction series were provided. One or more dose reduction techniques were used (e.g., Automated exposure control, adjustment of the mA and/or kV according to patient size, use of iterative reconstruction technique. RADIATION DOSE SUMMARY: CTDlvol: 45 mGy DLP: 813 mGycm COMPARISON: None FINDINGS: Brain: There is no evidence of hemorrhage, acute ischemia or mass. No extra- axial fluid collection, midline shift or mass effect. Low-density in the periventricular white matter, deep white matter. CSF Spaces: [id number] loss of volume. Sinuses/Mastoids: Clear Bones: No fracture CT/Brain/Head without Contrast IMPRESSION: 1. No evidence of intracranial hemorrhage or acute ischemia. 2. Changes of chronic microvascular ischemia and volume loss. Reading Location: [id number]
[2025-08-14 13:53] LABS: Mucous, Urine 0 SEEN /hpf (<or=2+); Red Blood Cells-Urine 0 SEEN /hpf (0-5); Squamous Epithelial Cells - UA 0 SEEN /hpf (5-10)
[2025-08-14 13:56] LABS: Color, Urine Yellow (Yellow); Glucose, Dipstick Normal (Normal); Ketone-Dipstick Negative (Negative); Leukocyte Esterase-Dipstick 500 /ul (Negative); Nitrite-Dipstick Negative (Negative); Occult Blood-Urine 50 /ul (Negative); Protein-Dipstick 30 mg/dl (Negative); Specific Gravity, Urine 1.015 (1.002-1.030); Urine Bilirubin Dipstick Negative (Negative)
[2025-08-14 14:28] LABS: Anion Gap 16 (5-15); BUN 123 mg/dL (4-19); BUN/Creat Ratio 28.9 RATIO (10-20); Calcium,Total 8.8 mg/dL (7.6-11.0); Carbon Dioxide 25.1 mmol/L (21.0-32.0); Chloride 97 mmol/L (98-108); Estimated Creatinine Clearance 9.06 ml/min (50-250); Glucose 120 mg/dL (70-99); Potassium 4.8 mmol/L (3.3-5.1)
--- NOTE | 2025-08-14 15:13 | PCM.HP.STD ---
HPI - General General Date of Admission: 08/14/25 Date of Service: 08/14/25 Chief Complaint: Confusion HPI Narrative SARAH SCHMITZ, is a 89 F who presented to [facility] ED on 08/14/2025 with confusion. Patient lives at home alone but her son lives close by and is heavily involved in her care. Her history significant for suspected dementia, chronic bilateral lower extremity wounds with edema, hypertension and hypothyroidism. Patient has recently been following with wound care clinic for worsening bilateral lower extremity wounds with ulcerations and ongoing edema. Due to this edema, her PCP as increased her Lasix dosing significantly over the past few weeks. Her son noticed that she has become more confused over the past few days, so she was brought in today for further evaluation. In the ED labs were notable for creatinine 4.25 (baseline around 0.9) and BUN 123. Chest x-ray showed cardiomegaly with mild central vascular congestion, similar to previous. CT brain was unremarkable. Given her severe KATELYN, hospitalist was contacted for admission. I saw the patient at bedside in the ED, son was present. Patient was laying back in bed comfortably and in no acute distress. She did appear somewhat confused though she was answering most questions with short appropriate responses for me. She denied any acute pain or discomfort. No other acute concerns currently. Will be admitted for further management. [facility] Medical History Diabetes Non-smoker Irritable bowel Restless legs Overweight (BMI 25.0-29.9) Bilateral pulmonary embolism COVID-19 Acute hypoxemic respiratory failure Hypothyroidism Hypertension Home Medications ?Medication ?Instructions ?Recorded ?Last Taken ?Type levothyroxine 75 mcg tablet 75 mcg PO DAILY THYROID 05/17/17 04/27/24 History furosemide 40 mg tablet 40 mg PO BID PRN PRN swelling 08/02/25 Unknown History Held on 08/14/25. Instructions: kidney injury lisinopril 5 mg tablet 5 mg PO DAILY blood pressure 08/02/25 Unknown History sitagliptin phosphate 25 mg tablet 25 mg PO DAILY diabetes 08/02/25 Unknown History (Januvia) ciprofloxacin HCl 500 mg tablet 500 mg PO BID antibiotic 08/09/25 Unknown History (Cipro) metronidazole 250 mg tablet 250 mg PO TID antibiotic 08/09/25 Unknown History potassium chloride 20 mEq 20 meq PO DAILY supplement 08/14/25 Unknown History tablet,extended release(part/cryst) Allergy/AdvReac Type Severity Reaction Status Date / Time No Known Allergies Allergy Verified 02/12/23 19:03 Family History Mother Cancer Surgical History History of appendectomy S/P hysterectomy Social History household members: other details: Notes her son lives with her. Smoking Status: Never smoker alcohol intake: never substance use type: does not use ROS Constitutional Constitutional: Reports fatigue; Denies chills or fever(s) Eyes Eyes: Denies change in vision Cardiovascular Cardiovascular: Denies chest pain Respiratory/Chest Respiratory/Chest: Denies shortness of breath at rest Gastrointestinal Gastrointestinal: Denies abdominal pain Genitourinary Genitourinary: Denies dysuria Neurologic Neurologic: Denies dizziness, focal weakness or headache(s) Vital Signs Vital Signs Vital Signs: 08/14/25 12:29 08/14/25 13:32 08/14/25 14:00 Temperature 97.6 F L 97.6 F L 97.6 F L Temperature Source Oral Temporal Oral Pulse Rate 83 111 H 112 H Respiratory Rate 19 H 16 13 Blood Pressure 143/107 H 111/71 123/78 H Blood Pressure Mean 119 84 93 Pulse Ox 90 100 95 Oxygen Delivery Method Room Air Room Air Room Air 08/14/25 15:00 08/14/25 15:10 Temperature 97.8 F 97.8 F Temperature Source Oral Pulse Rate 93 93 Respiratory Rate 20 H 20 H Blood Pressure 120/93 H 120/93 H Blood Pressure Mean 102 102 Pulse Ox 95 95 Oxygen Delivery Method Room Air Weight Weight: 81.2 kg Body Mass Index (BMI) 31.7 Physical Exam Const alert and no apparent distress Constitutional Narrative: Elderly female, class I obesity, mildly fatigued appearing, alert and answering most questions appropriately for me but with some confusion noted, otherwise laying back comfortably in bed and in no acute distress. General Appearance: cooperative and comfortable Orientation / Consciousness: confused HEENT normocephalic, head/scalp atraumatic, hearing grossly normal bilaterally, nasal mucous membranes and turbinates normal and moist oral mucous membranes Eyes PERRL, EOMs intact bilaterally and conjunctivae normal Neck full ROM Chest inspection of chest normal Resp normal respiratory effort and no use of accessory muscles Resp Narrative: Breathing comfortably on room air at rest. Mild crackles noted in bilateral lung bases, otherwise good air movement throughout. Cardio regular rate, regular rhythm, no murmurs and peripheral pulses 2+ throughout GI normal to inspection, nondistended, normoactive bowel sounds, soft to palpation, non-tender and non-distended Back/Spine normal ROM Extremity Extremity Narrative: Wraps in place over bilateral lower legs. Trace lower extremity edema noted. Results Lab / Micro Data 08/14/25 13:16 08/14/25 13:16 Labs: Laboratory Results - last 24 hr 08/14/25 13:16: WBC 11.7 H, RBC 3.94 L, Hgb 12.6, Hct 37.4, MCV 94.9, MCH 32.0, MCHC 33.7, RDW Std Deviation 53.1 H, RDW Coeff of Marguerite 15.3 H, Plt Count 213, MPV 10.4, Immature Gran % (Auto) 2.000 H, Neut % (Auto) 68.4, Lymph % (Auto) 15.2 L, [place] % (Auto) 10.2 H, Eos % (Auto) 3.6, Baso % (Auto) 0.6, Absolute Neuts (auto) 8.0 H, Absolute Lymphs (auto) 1.78, Nucleated RBC % 0, Sodium 138, Potassium 4.8, Chloride 97 L, Carbon Dioxide 25.1, Anion Gap 16 H, BUN 123 H*, Creatinine 4.25 H, Estim Creat Clear Calc 9.06 L*, Est GFR (MDRD) Non-Af 9 L, BUN/Creatinine Ratio 28.9 H, Glucose 120 H, Calcium 8.8 08/14/25 13:49: Urine Color Yellow, Urine Clarity Cloudy, Urine pH 5.0, Ur Specific [place] 1.015, Urine Protein 30 H, Urine Glucose (UA) Normal, Urine Ketones Negative, Urine Occult Blood 50 H, Urine Nitrite Negative, Urine Bilirubin Negative, Urine Urobilinogen Normal, Ur Leukocyte Esterase 500 H, Urine RBC 0 SEEN, Urine WBC >100 SEEN, Ur Squamous Epith Cells 0 SEEN, Urine Bacteria 0 SEEN, Urine Mucus 0 SEEN Rhythm Strip Rhythm Strip: Sinus Tach Rate: 112 Ectopy: None Imaging Radiology Impression Chest X-Ray 08/14/25 13:12 IMPRESSION: There is cardiomegaly with mild central vascular congestion, similar to the prior. There is no focal infiltrate. There is blunting of the costophrenic angle on the left consistent with a moderate effusion. Reading Location: [facility] Brain CT 08/14/25 13:25 IMPRESSION: 1. No evidence of intracranial hemorrhage or acute ischemia. 2. Changes of chronic microvascular ischemia and volume loss. Reading Location: [id number] Assessment & Plan Assessment/Plan (1) KATELYN (acute kidney injury): PLAN: Plan Patient is an 89-year-old female who presented to [facility] ED on 08/14/2025 with confusion. 1. Severe KATELYN with suspected uremia ? Admit under inpatient status to [facility]. Creatinine 4.25, BUN 123 on admit. Baseline creatinine around 0.9. Suspect prerenal etiology secondary to overdiuresis from Lasix. Urine sodium and creatinine ordered to calculate FeNa. Given 2 L of IV fluids in the ED. Will hold on further IV fluids for now. Follow-up a.m. BMP monitor urine output. Low threshold to consult nephrology as needed. 2. Acute on chronic debility with concern for underlying dementia ? PT/OT/case management consulted. Patient lives at home alone, son lives nearby. Son notes that patient has had worsening functional status over the past few months and her lower extremity wounds with ulcerations have been difficult to manage. She has never required SNF placement before but they are agreeable to this if needed on discharge. Per the son, patient has become more forgetful recently as well and he is concerned for some degree of cognitive impairment. Unclear if this may related to uremia versus more chronic in nature. Will monitor and patient will likely need further outpatient workup for possible dementia. 3. Bilateral lower extremity edema with wounds and ulcerations ? Wound care consulted. Has been following with wound care center recently, see notes from 08/02 and 08/09. Appreciate further wound care recommendations. Chronic medical conditions: ? Class I obesity: BMI 30 on admit., He is hospital course and care. ? Hypertension: Holding home lisinopril given KATELYN as above and as patient was borderline hypotensive on admit. ? Hypothyroidism: Continue home Synthroid. ? Type 2 diabetes mellitus: Hold home sitagliptin. Will treat with sliding scale insulin with meals while inpatient, adjust as needed. DVT prophylaxis: Heparin subcu CODE STATUS: DNR-CCA, DNI Expected disposition: Likely SNF, TBD Total clinical time spent by myself addressing the patient's medical issues, reviewing all the data, and collaborating with patient's care team: 77 minutes. Charges/Coding Visit Charges Inpatient E&M: 51194 Init Hosp L3
[2025-08-14] MEDS: 0.9% Normal Saline (1000mL) 1,000 ML 999 ML IV (15:27)
--- NOTE | 2025-08-14 15:51 | CASEMGMT ---
Care Management Face to Face with patient for initial transition planning/care coordination assessment in the ED. This technical proposal writer introduced self and role at [facility]. Patient alert and oriented. Patient willing to participate in assessment, though confused and required patient's son, Ever, to answer questions. Care providers, pharmacy, and demographics verified. Admitting Diagnosis: Acute kidney injury Other diagnosis history: hypoxemic respiratory failure, diabetes, Hypothyroidism, Hypertension PCP: Jessa Alberto Specialists: Wound center Preferred Pharmacy: [facility] Retail Insurance: [employer] Medicare Prescription Benefit: yes Living Will/HPOA: son, Ever (primary). Granddaughter, Maureen (secondary). LNOK: 5 children (Ever, Andrew, and Erich in [place]). Son in [place]. Son in [place]. Living Arrangements: lives alone in a 2 story house with first floor living. 3 steps to enter. Has aide who comes every day for an hour to help with ADLs. Transportation: Ever drives patient to medical appointments. DME: pat HHC: none SNF/Rehab: none Community Resources: [facility] Diane BISHOP. Aide through [employer] in [place]. [facility] sends an RN out weekly. Patient goals: Per Ever, patient reportedly feels it necessary to go to SNF after discharge. Patient did agree to this while SW was present in room. Patient denies any further needs or concerns at this time. Disposition Plan: admission to acute; RN CM/IMANI to follow for discharge planning needs that may arise. Clarisse Hi, PROFESSIONAL ORGANIZER, FIRE CONTROL TECHNICIAN
[2025-08-14] MEDS: MELATONIN 3 MG TABLET PO (21:10)
[2025-08-14] MEDS: 0.9% Normal Saline (1000mL) 1,000 ML 150 ML IV (22:48)
[2025-08-14] MEDS: Heparin Injection (Vial) 5,000 UNIT/ML VIAL 5000 UNIT SC (22:56)
[2025-08-14 23:22] LABS: CPK Total, Creatine Kinase 55 U/L (24-195)
--- NOTE | 2025-08-14 23:27 | PN.HOSP_ITS ---
Hospitalist Note Pt diabetic with home dosing of Januvia on hold; fingerstick glucometers AC/HS with lispro SSI at High-Med dosing protocol and adult hypoglycemic protocol ordered. CPK added to ER labs, 55. Pt using a purewick and voiding concentrated urine. Received 2L NS IV fluid bolus, is reportedly not a big water drinker, NS at 150ml/hr ordered as well to assist with hydration and renal perfusion. Pt is very painful to her bilateral lower extremities, with presence of known and draining ulcerated areas; ordered OxyIR 5mg PO q6h PRN pain 6-10 after ac etaminophen use.
[2025-08-15 02:13] VITALS: BP 105/57; PULSE 120; RESP 16; TEMP 37.2; O2SAT 89
[2025-08-15] MEDS: Heparin Injection (Vial) 5,000 UNIT/ML VIAL 5000 UNIT SC ×3 (05:50→21:50)
[2025-08-15] MEDS: 0.9% Normal Saline (1000mL) 1,000 ML 150 ML IV (05:50)
[2025-08-15 05:53] VITALS: PULSE 87; RESP 15; TEMP 36.6; O2SAT 95
[2025-08-15 06:45] LABS: Hematocrit 32.6 % (37-47); Hemoglobin 10.6 g/dL (12.0-15.0); Mean Corp Hgb Conc 32.5 g/dL (32-36); Mean Corpuscular Volume 96.2 fL (81-99); Mean Platelet Vol. 10.4 fl (6.2-12.0); Platelet Count 189 K/mm3 (150-450); RBC Distribution Width CV 15.4 % (11.6-14.6); RBC Distribution Width SD 53.4 fl (35.1-43.9); Red Blood Count 3.39 M/mm3 (4.2-5.4); White Blood Count 9.6 K/mm3 (4.4-11.0)
[2025-08-15 07:07] LABS: CPK Total, Creatine Kinase 54 U/L (24-195)
[2025-08-15 07:15] LABS: Anion Gap 12 (5-15); BUN 78 mg/dL (4-19); BUN/Creat Ratio 38.2 RATIO (10-20); Calcium,Total 7.8 mg/dL (7.6-11.0); Carbon Dioxide 22.3 mmol/L (21.0-32.0); Chloride 109 mmol/L (98-108); Estimated Creatinine Clearance 18.60 ml/min (50-250); Glucose 113 mg/dL (70-99); Potassium 3.9 mmol/L (3.3-5.1)
--- NOTE | 2025-08-15 07:40 | PN.HOSP_ITS ---
Reason for Visit Chief Complaint: Confusion Objective Data Objective Data Vital Signs: Vital Signs Temp Pulse Resp BP Pulse Ox O2 Del Method O2 Flow Rate 97.9 F 87 15 105/57 L 95 Room Air 2 08/15/25 05:53 08/15/25 05:53 08/15/25 05:53 08/15/25 02:13 08/15/25 05:53 08/15/25 07:38 08/14/25 15:45 Oxygen Flow Rate (L/min) 2 Oxygen Delivery Method Room Air Weight: 174 lb Body Mass Index (BMI) 30.8 Intake & Output: Intake and Output for Last 24 Hours 08/13/25 08/14/25 08/15/25 23:59 23:59 23:59 Intake Total 2000 / 2200 1200 / 1200 Output Total 400 / 400 1000 / 1000 Balance 1600 / 1800 200 / 200 Lab / Micro Data 08/15/25 05:23 08/15/25 05:23 Labs: Laboratory Results - last 24 hr 08/14/25 13:16: WBC 11.7 H, RBC 3.94 L, Hgb 12.6, Hct 37.4, MCV 94.9, MCH 32.0, MCHC 33.7, RDW Std Deviation 53.1 H, RDW Coeff of Marguerite 15.3 H, Plt Count 213, MPV 10.4, Immature Gran % (Auto) 2.000 H, Neut % (Auto) 68.4, Lymph % (Auto) 15.2 L, Andrews % (Auto) 10.2 H, Eos % (Auto) 3.6, Baso % (Auto) 0.6, Absolute Neuts (auto) 8.0 H, Absolute Lymphs (auto) 1.78, Nucleated RBC % 0, Sodium 138, Potassium 4.8, Chloride 97 L, Carbon Dioxide 25.1, Anion Gap 16 H, B UN 123 H*, Creatinine 4.25 H, Estim Creat Clear Calc 9.06 L*, Est GFR (MDRD) Non-Af 9 L, BUN/Creatinine Ratio 28.9 H, Glucose 120 H, Hemoglobin A1c 8.1 H, Calcium 8.8, Total Creatine Kinase 55 08/14/25 13:49: Urine Color Yellow, Urine Clarity Cloudy, Urine pH 5.0, Ur Specific [place] 1.015, Urine Protein 30 H, Urine Glucose (UA) Normal, Urine Ketones Negative, Urine Occult Blood 50 H, Urine Nitrite Negative, Urine Bilirubin Negative, Urine Urobilinogen Normal, Ur Leukocyte Esterase 500 H, Urine RBC 0 SEEN, Urine WBC >100 SEEN, Ur Squamous Epith Cells 0 SEEN, Urine Bacteria 0 SEEN, Urine Mucus 0 SEEN, Ur Random Sodium 36, Urine Creatinine 65.10 08/14/25 22:51: POC Glucose 152 H 08/15/25 05:23: WBC 9.6, RBC 3.39 L, Hgb 10.6 L, Hct 32.6 L, MCV 96.2, MCH 31.3, MCHC 32.5, RDW Std Deviation 53.4 H, RDW Coeff of Marguerite 15.4 H, Plt Count 189, MPV 10.4, Sodium 143, Potassium 3.9, Chloride 109 H, Carbon Dioxide 22.3, Anion Gap 12, BUN 78 H, Creatinine 2.04 H, Estim Creat Clear Calc 18.60 L, Est GFR (MDRD) Non-Af 23 L, BUN/Creatinine Ratio 38.2 H, Glucose 113 H, Calcium 7.8, Total Creatine Kinase 54 08/15/25 06:41: POC Glucose 127 H Radiography Diagnostic Testing: Radiology Impression Chest X-Ray 08/14/25 13:12 IMPRESSION: There is cardiomegaly with mild central vascular congestion, similar to the prior. There is no focal infiltrate. There is blunting of the costophrenic angle on the left consistent with a moderate effusion. [facility] 08/14/25 13:25 IMPRESSION: 1. No evidence of intracranial hemorrhage or acute ischemia. 2. Changes of chronic microvascular ischemia and volume loss. Reading Location: [id number] Rhythm Strip Rhythm Strip: Sinus Tach Rate: 112 Ectopy: None Physical Exam Narrative Seen and examined. Patient is forgetful and history is difficult. She is crying. At best she tells that she has lower extremities swelling and wound. Son near the bedside. Physical exam General: Alert, Oriented x3, Cooperative HEENT: Atraumatic, PERRLA, EOMI, Normocephalic. Oral: No Gingival or Mucosal Lesions/ Ulcerations Neck: Supple, No JVD, Negative Carotid Bruits Chest wall/Lungs: Air entry diminished in bilateral lung bases L> R. Mild crepitation at left lung base. Cardiovascular: Regular rate and rhythm, Normal S1,S2, No M/G/R Abdomen: Bowel Sounds Present, Soft, Non Tender, Non-Distended : No dysuria. No renal angle tenderness. No suprapubic tenderness. Extremities: Bilateral lower extremity edema edema, Capillary Refill Less than 3 Seconds Skin: Lower legs wound covered with Dimas wrap bandage. Musculoskeletal: No Tenderness to Palpation of Joints or Extremities Neurological: Cranial nerves II-XII grossly intact, DTR 2+/4. No acute focal neurological deficit. Psych/Mental Status: Flat affect. Sad/dementia Assessment & Plan Assessment/Plan (1) KATELYN (acute kidney injury): PLAN: Plan Patient is an 89-year-old female who presented to [facility] ED on 08/14/2025 with confusion and altered level of consciousness. Patient was only self oriented in ED. History of DM, PE and hypertension. Recently started on antibiotics Cipro and Flagyl for 2 weeks for wound, bilateral lower leg edema and ulcerations 1. Severe KATELYN with suspected uremia prerenal suspected from overdiuresis/Lasix: ? Admit under inpatient status to [facility]. Creatinine 4.25, BUN 123 on admit. Baseline creatinine around 0.9. Creatinine 1.8 about 2 weeks ago. Suspect prerenal etiology secondary to overdiuresis from Lasix. Urine sodium and creatinine ordered to calculate FeNa. Given 2 L of IV fluids in the ED. 08/15: Serum sodium 143, BUN/creatinine shows improvement 78/2.04. Urine sodium 36, creatinine 65.10. Seen by eligibility worker. Creatinine improving 2. Acute on chronic debility with concern for underlying dementia/possible depression ? PT/OT/case management consulted. Patient lives at home alone, son lives nearby. Son notes that patient has had worsening functional status over the past few months and her lower extremity wounds with ulcerations have been difficult to manage. Sons are in agreement with SNF placement as she needs more nursing care and physical therapy. More forgetful, cries easily. 3. Bilateral lower extremity edema with wounds and ulcerations ? Wound care consulted. Has been following with wound care center recently, see notes from 08/02 and 08/09. Appreciate further wound care recommendations. Chronic medical conditions: ? Class I obesity: BMI 30 on admit., He is hospital course and care. ? Hypertension: Holding home lisinopril given KATELYN as above and as patient was borderline hypotensive on admit. ? Hypothyroidism: Continue home Synthroid. ? Type 2 diabetes mellitus: Hold home sitagliptin. Will treat with sliding scale insulin with meals while inpatient, adjust as needed. Glucose 127. BMP glucose 113. DVT prophylaxis: Heparin subcu CODE STATUS: DNR-CCA, DNI 08/14/25 13:16: WBC 11.7 H, RBC 3.94 L, Hgb 12.6, Hct 37.4, MCV 94.9, MCH 32.0, MCHC 33.7, RDW Std Deviation 53.1 H, RDW Coeff of Marguerite 15.3 H, Plt Count 213, MPV 10.4, Immature Gran % (Auto) 2.000 H, Neut % (Auto) 68.4, Lymph % (Auto) 15.2 L, Andrews % (Auto) 10.2 H, Eos % (Auto) 3.6, Baso % (Auto) 0.6, Absolute Neuts (auto) 8.0 H, Absolute Lymphs (auto) 1.78, Nucleated RBC % 0, Sodium 138, Potassium 4.8, Chloride 97 L, Carbon Dioxide 25.1, Anion Gap 16 H, B UN 123 H*, Creatinine 4.25 H, Estim Creat Clear Calc 9.06 L*, Est GFR (MDRD) Non-Af 9 L, BUN/Creatinine Ratio 28.9 H, Glucose 120 H, Hemoglobin A1c 8.1 H, Calcium 8.8, Total Creatine Kinase 55 08/14/25 13:49: Urine Color Yellow, Urine Clarity Cloudy, Urine pH 5.0, Ur Specific Glad[place] 1.015, Urine Protein 30 H, Urine Glucose (UA) Normal, Urine Ketones Negative, Urine Occult Blood 50 H, Urine Nitrite Negative, Urine Bilirubin Negative, Urine Urobilinogen Normal, Ur Leukocyte Esterase 500 H, Urine RBC 0 SEEN, Urine WBC >100 SEEN, Ur Squamous Epith Cells 0 SEEN, Urine Bacteria 0 SEEN, Urine Mucus 0 SEEN, Ur Random Sodium 36, Urine Creatinine 65.10 08/14/25 22:51: POC Glucose 152 H 08/15/25 05:23: WBC 9.6, RBC 3.39 L, Hgb 10.6 L, Hct 32.6 L, MCV 96.2, MCH 31.3, MCHC 32.5, RDW Std Deviation 53.4 H, RDW Coeff of Marguerite 15.4 H, Plt Count 189, MPV 10.4, Sodium 143, Potassium 3.9, Chloride 109 H, Carbon Dioxide 22.3, Anion Gap 12, BUN 78 H, Creatinine 2.04 H, Estim Creat Clear Calc 18.60 L, Est GFR (MDRD) Non-Af 23 L, BUN/Creatinine Ratio 38.2 H, Glucose 113 H, Calcium 7.8, Total Creatine Kinase 54 08/15/25 06:41: POC Glucose 127 H Charges/Coding Visit Charges Inpatient E&M: 26538 Subs Hosp L2
[2025-08-15] MEDS: Glucerna Shake 120 ML LIQUID PO ×2 (08:27→12:39)
--- NOTE | 2025-08-15 08:34 | WOUNDNOTE ---
wound photo: right lower leg
--- NOTE | 2025-08-15 08:34 | WOUNDNOTE ---
wound photo: right lower leg
[2025-08-15 08:35] VITALS: BP 125/70; PULSE 119; RESP 18; TEMP 36.4; O2SAT 95
--- NOTE | 2025-08-15 08:35 | WOUNDNOTE ---
wound photo: right posterior lower leg
--- NOTE | 2025-08-15 08:36 | WOUNDNOTE ---
wound photo: left posterior lower leg
[2025-08-15 11:36] VITALS: BP 119/71; PULSE 87; RESP 16; TEMP 36.4; O2SAT 97
--- NOTE | 2025-08-15 12:07 | CASEMGMT ---
Discharge Planning A list of?SNF providers including quality and resource use data and consistent with the patient's preferred geographic region, medical needs, and insurance network was created in CarePort Guide.? This list was provided to the Dennise Kaiser Discharge Planning Asst.
--- NOTE | 2025-08-15 12:41 | PCM.CONS.R ---
Assessment & Plan Assessment/Plan (1) KATELYN (acute kidney injury): PLAN: Last known baseline creatinine is less than 1 from October 2024. Creatinine was about 1.8 about 2 weeks ago. Came with a creatinine of 4.2, significantly better. Admission BUN was more than 100, also significantly better. As per admission records, she has been started on increasing dose of diuretics in view of lower extremity edema. Most likely change in creatinine is hemodynamic changes with volume shifts. Since creatinine is significantly better today, hold off on further workup. Urine analysis fairly benign. Discussed with family bedside HPI Consult Data Date of Consult: 08/15/25 HPI Narrative Reason for Consultation: KATELYN HPI Narrative: SARAH SCHMITZ, is a 89 F who presents To the hospital with confusion. Nephrology on consultation in view of acute renal failure. She has history of dementia at baseline. [id number] at bedside, most of her medical care is handled by her son who lives close by. Most of the history is obtained from the chart since the patient could not be interviewed due to history of dementia. When I asked her why she came into the hospital she says I do not know. With respect to kidney function, last known baseline creatinine from October 2024 is less than 1. Creatinine was 1.8 about 2 weeks ago, this admission, came to the creatinine of 4.2. Urine analysis fairly benign. She says she is voiding without any problems. She has known history of lower extremity edema, open wounds. Has been following up with wound care. As per admission records, she was being started on increasing dose of diuretics due to lower extremity edema. She denies any breathing issues right now. [facility] Medical History Diabetes Non-smoker Irritable bowel Restless legs Overweight (BMI 25.0-29.9) Bilateral pulmonary embolism COVID-19 Acute hypoxemic respiratory failure Hypothyroidism Hypertension Home Medications ?Medication ?Instructions ?Recorded ?Last Taken ?Type levothyroxine 75 mcg tablet 75 mcg PO DAILY THYROID 05/17/17 04/27/24 History furosemide 40 mg tablet 40 mg PO BID PRN PRN swelling 08/02/25 Unknown History Held on 08/14/25. Instructions: kidney injury lisinopril 5 mg tablet 5 mg PO DAILY blood pressure 08/02/25 Unknown History sitagliptin phosphate 25 mg tablet 25 mg PO DAILY diabetes 08/02/25 Unknown History (Januvia) ciprofloxacin HCl 500 mg tablet 500 mg PO BID antibiotic 08/09/25 Unknown History (Cipro) metronidazole 250 mg tablet 250 mg PO TID antibiotic 08/09/25 Unknown History potassium chloride 20 mEq 20 meq PO DAILY supplement 08/14/25 Unknown History tablet,extended release(part/cryst) Allergy/AdvReac Type Severity Reaction Status Date / Time No Known Allergies Allergy Verified 02/12/23 19:03 Family History Mother Cancer Surgical History History of appendectomy S/P hysterectomy Social History household members: other details: Notes her son lives with her. Smoking Status: Never smoker alcohol intake: never substance use type: does not use ROS ROS Narrative negative except above Physical Exam Narrative no obvious distress no pallor no icterus no JVD s1s2 no murmurs lungs clear abdomen soft no organomegaly +++ edema Lab / Micro Data 08/15/25 05:23 08/15/25 05:23 Labs: Laboratory Results - last 24 hr 08/14/25 13:16: WBC 11.7 H, RBC 3.94 L, Hgb 12.6, Hct 37.4, MCV 94.9, MCH 32.0, MCHC 33.7, RDW Std Deviation 53.1 H, RDW Coeff of Marguerite 15.3 H, Plt Count 213, MPV 10.4, Immature Gran % (Auto) 2.000 H, Neut % (Auto) 68.4, Lymph % (Auto) 15.2 L, Fallon % (Auto) 10.2 H, Eos % (Auto) 3.6, Baso % (Auto) 0.6, Absolute Neuts (auto) 8.0 H, Absolute Lymphs (auto) 1.78, Nucleated RBC % 0, Sodium 138, Potassium 4.8, Chloride 97 L, Carbon Dioxide 25.1, Anion Gap 16 H, BUN 123 H*, Creatinine 4.25 H, Estim Creat Clear Calc 9.06 L*, Est GFR (MDRD) Non-Af 9 L, BUN/Creatinine Ratio 28.9 H, Glucose 120 H, Hemoglobin A1c 8.1 H, Calcium 8.8, Total Creatine Kinase 55 08/14/25 13:49: Urine Color Yellow, Urine Clarity Cloudy, Urine pH 5.0, Ur Specific Carlton 1.015, Urine Protein 30 H, Urine Glucose (UA) Normal, Urine Ketones Negative, Urine Occult Blood 50 H, Urine Nitrite Negative, Urine Bilirubin Negative, Urine Urobilinogen Normal, Ur Leukocyte Esterase 500 H, Urine RBC 0 SEEN, Urine WBC >100 SEEN, Ur Squamous Epith Cells 0 SEEN, Urine Bacteria 0 SEEN, Urine Mucus 0 SEEN, Ur Random Sodium 36, Urine Creatinine 65.10 08/14/25 22:51: POC Glucose 152 H 08/15/25 05:23: WBC 9.6, RBC 3.39 L, Hgb 10.6 L, Hct 32.6 L, MCV 96.2, MCH 31.3, MCHC 32.5, RDW Std Deviation 53.4 H, RDW Coeff of Marguerite 15.4 H, Plt Count 189, MPV 10.4, Sodium 143, Potassium 3.9, Chloride 109 H, Carbon Dioxide 22.3, Anion Gap 12, BUN 78 H, Creatinine 2.04 H, Estim Creat Clear Calc 18.60 L, Est GFR (MDRD) Non-Af 23 L, BUN/Creatinine Ratio 38.2 H, Glucose 113 H, Calcium 7.8, Total Creatine Kinase 54 08/15/25 06:41: POC Glucose 127 H 08/15/25 11:17: POC Glucose 219 H Rhythm Strip Rhythm Strip: Sinus Tach Rate: 112 Ectopy: None Imaging Radiology Impression Chest X-Ray 08/14/25 13:12 IMPRESSION: There is cardiomegaly with mild central vascular congestion, similar to the prior. There is no focal infiltrate. There is blunting of the costophrenic angle on the left consistent with a moderate effusion. Reading Location: [facility] Brain CT 08/14/25 13:25 IMPRESSION: 1. No evidence of intracranial hemorrhage or acute ischemia. 2. Changes of chronic microvascular ischemia and volume loss. Reading Location: [id number]
--- NOTE | 2025-08-15 14:49 | CHAPLAIN ---
Type of Pastoral Visit _x__ Initial Visit ___ Follow-up Visit ___ On-call Visit ___ General Patient Visit ___ Spiritual Assessment ___ Family Conference ___ Bereavement ___ Rapid Response ___ Code Blue ___ Other (describe below) Pastoral Care Referral From _x__ Patient ___ Family ___ Nurse ___ Physician ___ Broadband Installer ___ Robotic Machine Tender Production ___ Other (describe below) Sacrament/Intervention _x__ Active listening ___ Anointing ___ Hinduism ___ Bereavement ___ Communion ___ Archana exploration ___ _x__ Life review _x__ Prayer ___ Reconciliation ___ Sacrament of Sick _x__ Supportive presence ___ Wedding ___ Other (describe below) Pastoral Comments patient is welcoming and says that she wanted someone to talk with; pt knows her name, address; pt does not remember how she came to the hospital and why; pt is looking for her son but he is not in the room; 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
[2025-08-15 15:16] VITALS: BP 95/47; PULSE 78; RESP 16; TEMP 36.8; O2SAT 93
--- NOTE | 2025-08-15 16:09 | CASEMGMT ---
Social Work- A list of SNF providers including quality and resource use data and consistent with the patient?s preferred geographic region, medical needs, and insurance network were provided from the CarePort Guide. SW requested 3 choices. SW will follow up tomorrow, as pt reports she would like to nap before looking at list. GONZALES Lugo
[2025-08-15 20:40] VITALS: BP 127/48; PULSE 82; RESP 18; TEMP 36.9; O2SAT 95
--- OUTSIDE RECORDS SUMMARY | 2025-08-15 23:08 | XMS RPT_ITS ---
Author Name Auto Generated Organization OHIP PROBLEMS No Problem Records Found PROCEDURES No Procedure Records Found RESULTS COMP METAB 2000 PNL SERPL Collected: 11:35 AM Status: F Source: [facility] Order Comment: Specimen Type : BLOOD SPECIMEN Ordering Facility: [facility] Address: [address] [place] [address] TYPE CODE TESTS RESULT OUT OF RANGE REFERENCE UNITS LAB 2885-2(LOINC) Prot SerPl-mCnc 6.7 6.3-8.0 g/dL LAB 1751-7(LOINC) Albumin SerPl-mCnc 3.8 Low 3.9-4.9 g/dL LAB 26701-0(LOINC) Calcium SerPl-mCnc 8.8 8.5-10.2 mg/dL LAB 1975-2(LOINC) Bilirub SerPl-mCnc 0.4 0.2-1.3 mg/dL LAB 6768-6(LOINC) ALP SerPl-cCnc 80 34-123 U/L LAB 1920-8(LOINC) AST SerPl-cCnc 23 13-35 U/L LAB 1742-6(LOINC) ALT SerPl-cCnc 22 7-38 U/L LAB 2345-7(LOINC) Glucose SerPl-mCnc 205 High 74-99 mg/dL Result Comment: The [place] Diabetes Association (ADA) provides guidance for cutoff values for fasting glucose and random glucose. The ADA defines fasting as no caloric intake for at least 8 hours. Fasting plasma glucose results between 100 to 125 mg/dL indicate increased risk for diabetes (prediabetes). Fasting plasma glucose results greater than or equal to 126 mg/dL meet the criteria for diagnosis of diabetes. In the absence of unequivocal hyperglycemia, results should be confirmed by repeat testing. In a patient with classic symptoms of hyperglycemia or hyperglycemic crisis, random plasma glucose results greater than or equal to 200 mg/dL meet the criteria for diagnosis of diabetes. Reference: Standards of Medical Care in Diabetes 2016, [place] [employer] Association. Diabetes Care. 2016.39(Suppl 1). LAB 3094-0(LOINC) BUN SerPl-mCnc 101 High 7-21 mg/dL LAB 2160-0(LOINC) Creat SerPl-mCnc 2.53 High 0.58-0.96 mg/dL LAB 2951-2(LOINC) Sodium SerPl-sCnc 134 Low 136-144 mmol/L LAB 2823-3(LOINC) Potassium SerPl-sCnc 4.7 3.7-5.1 mmol/L LAB 2075-0(LOINC) Chloride SerPl-sCnc 91 Low 98-107 mmol/L LAB 2028-9(LOINC) CO2 SerPl-sCnc 25 22-30 mmol/L LAB 47490-3(LOINC) Anion Gap SerPl-sCnc 18 High 8-15 mmol/L LAB 48315-3(LOINC) eGFRcr SerPlBld CKD-EPI 2020 18 Low >=60 mL/min/1. 73m??? Result Comment: Estimated Gl omerular Filtration Rate (eGFR) is calculated using the 2020 CKD-EPI creatinine equation. This equation utilizes serum creatinine, sex, and age as parameters. The creatinine assay has traceable calibration to isotope dilution-mass spectrometry. Refer to KDIGO guidelines for clinical interpretation. In patients with unstable renal function, e.g. those with acute kidney injury, the eGFR may not accurately reflect actual GFR. Performed By: #### [id number] # ### [facility] CLIA [id number] [address] [place] [address] [place] NT-PROBNP SERPL-MCNC Collected: 025 11:35 AM Status: F Source: [facility] Order Comment: Specimen Type : BLOOD SPECIMEN Ordering Facility: [facility] Address: [address] [place] [address] TYPE CODE TESTS RESULT OUT OF RANGE REFERENCE UNITS LAB 57826-9(LOINC) NT-proBNP SerPl-mCnc 734 High <450 pg/mL Performed By: #### 05284-1 # ### [facility] CLIA [id number] [address] [place] CBC W AUTO DIFF BLD Collected: 08/08/2025 11:35 AM S tatus: F Source: [facility] Order Comment: Specimen Type : BLOOD SPECIMEN Ordering Facility: [facility] Address: [address] [place] [address] TYPE CODE TESTS RESULT OUT OF RANGE REFERENCE UNITS LAB 6690-2([facility]) WBC # Bld Auto 11.24 High 3.70-11.00 k/uL LAB 789-8([facility]) RBC # Bld Auto 4.14 3.90-5.20 m/ uL LAB 718-7([facility]) Hgb Bld-mCnc 13.0 11.5-15.5 g/dL LAB 4544-3([facility]) Hct VFr Bld Auto 40.2 36.0-46.0 % LAB 787-2([facility]) MCV RBC Auto 97.1 80.0-100.0 fL LAB 785-6([facility]) MCH RBC Qn Auto 31.4 26.0-34.0 p g LAB 786-4([facility]) MCHC RBC Auto-mCnc 32.3 30.5-36.0 g/dL LAB 87032-1([facility]) RDW RBC-Rto 15.1 High 11.5-15.0 % LAB 777-3([facility]) Platelet # Bld Auto 265 150-400 k/uL LAB 34933-7(INC) PMV Bld Auto 10.6 9.0-12.7 fL LAB 770-8(LOINC) Neutrophils/leuk NFr Bld Auto 73.7 % LAB 751-8(LOINC) Neutrophils # Bld Auto 8.28 High 1.45-7.50 k/uL LAB 736-9(LOINC) Lymphocytes/leuk NFr Bld Auto 17.8 % LAB 731-0(LOINC) Lymphocytes # Bld Auto 2.00 1.00-4.00 k/uL LAB 5905-5(LOINC) Monocytes/leuk NFr Bld Auto 6.4 % LAB 742-7(LOINC) Monocytes # Bld Auto 0.72 <0.87 k/uL LAB 713-8(LOINC) Eosinophil/leuk NFr Bld Auto 0.6 % LAB 711-2(LOINC) Eosinophil # Bld Auto 0.07 <0.46 k/uL LAB 706-2(LOINC) Basophils/leuk NFr Bld Auto 0.4 % LAB 704-7(LOINC) Basophils # Bld Auto 0.05 <0.11 k/uL LAB 76799-0(LOINC) Imm Granulocytes/mateus k NFr Bld Auto 1.1 % LAB 63936-0(LOINC) Imm Granulocytes # Bld Auto 0.12 High <0.10 k/uL LAB 14980-3(LOINC) nRBC/100 WBC Bld-Rto 0.0 /100 WBC LAB 771-6(LOINC) nRBC # Bld Auto <0.01 <0.01 k/u L LAB 21963-3(LOINC) Differential method Bld Auto Performed By: #### 48400-1 # ### [facility] CLIA [id number] [address] [place] [address] [place] ALLERGIES No Allergies Records Found ENCOUNTERS No Encounter Records Found PAYERS No Payer Records Found
[2025-08-16 02:00] VITALS: BP 137/67; PULSE 71; RESP 16; TEMP 36.6; O2SAT 98
[2025-08-16] MEDS: Heparin Injection (Vial) 5,000 UNIT/ML VIAL 5000 UNIT SC ×3 (05:41→21:50)
[2025-08-16] MEDS: 0.9% Saline Lock 10 ML Syringe IV (05:41)
[2025-08-16 08:00] VITALS: RESP 18
[2025-08-16 08:10] LABS: CPK Total, Creatine Kinase 51 U/L (24-195)
[2025-08-16 08:44] VITALS: BP 134/64; PULSE 86; RESP 16; TEMP 36.8; O2SAT 96
[2025-08-16] MEDS: Glucerna Shake 120 ML LIQUID PO ×3 (09:06→16:07)
--- NOTE | 2025-08-16 10:53 | PCM.PN.REN ---
Subjective Subjective No new events Objective Data Objective Data Vital Signs: Vital Signs Temp Pulse Resp BP Pulse Ox O2 Del Method O2 Flow Rate 98.3 F 86 16 134/64 H 96 Room Air 2 08/16/25 08:44 08/16/25 08:44 08/16/25 08:44 08/16/25 08:44 08/16/25 08:44 08/16/25 09:44 08/16/25 02:00 Oxygen Flow Rate (L/min) 2 Oxygen Delivery Method Room Air Weight: 78.9 kg Body Mass Index (BMI) 30.8 Intake & Output: Intake and Output for Last 24 Hours 08/14/25 08/15/25 08/16/25 23:59 23:59 23:59 Intake Total 2000 / 2200 3000 / 3000 Output Total 400 / 400 1000 / 1300 700 / 700 Balance 1600 / 1800 2000 / 1700 -700 / -700 Lab / Micro Data 08/15/25 05:23 08/15/25 05:23 Labs: Laboratory Results - last 24 hr 08/15/25 11:17: POC Glucose 219 H 08/15/25 16:15: POC Glucose 195 H 08/15/25 21:48: POC Glucose 148 H 08/16/25 05:40: Total Creatine Kinase 51 08/16/25 06:05: POC Glucose 109 H Micro: Microbiology 08/14/25 13:49 Urine, Catheterized Urine Culture - Preliminary Gram positive organism Rhythm Strip Rhythm Strip: Sinus Tach Rate: 112 Ectopy: None Physical Exam Narrative no obvious distress no pallor no icterus no JVD s1s2 no murmurs lungs clear abdomen soft no organomegaly +++ edema Assessment & Plan Assessment/Plan (1) KATELYN (acute kidney injury): PLAN: Last known baseline creatinine is less than 1 from October 2024. Creatinine was about 1.8 about 2 weeks ago. Came with a creatinine of 4.2, significantly better. Admission BUN was more than 100, also significantly better. As per admission records, she has been started on increasing dose of diuretics in view of lower extremity edema. Most likely change in creatinine is hemodynamic changes with volume shifts. Since creatinine is significantly better today, hold off on further workup. Urine analysis fairly benign. Discussed with family bedside 08/16/2025. Asymptomatic. Last creatinine 2.0, labs from today pending.
--- NOTE | 2025-08-16 11:18 | CASEMGMT ---
Social Work- SW met with pt to follow on on SNF choices. Pt selected [facility] as FOC. Pt had questions regarding help at home following d/c from rehab; SW provided education on community resources and care continuum. Pt reports that her sons do not assist much at home. Pt reports that she is uncertain what to do at home; reports that she has a reverse mortgage on home. Pt agreeable to SW calling son vEer to discuss care plan. SW called pt son to provide updates. Pt son reports that pt has CM from [facility], [facility]. Pt receives meals on wheels daily and has an aide 5 days per week for a little over one hour per day. Pt also reportedly has a SN from [facility] that comes one day per week. Pt son agreeable to [facility] referral. IMANI notified [facility] of referral request. IMANI remains available to follow. GONZALES Lugo
--- NOTE | 2025-08-16 11:30 | CASEMGMT ---
Addendum entered by Dennise Kaiser 08/16/25 11:40: [facility] has accepted. SW updated. Dennise Kaiser DC Planning Asst. Original Note: Discharge Planning Referral sent to [facility]. Dennise Kaiser DC Planning Asst.
--- NOTE | 2025-08-16 12:54 | CASEMGMT ---
Discharge Planning [facility] asked to submit for precert. Dennise Kaiser DC Planning Asst.
--- NOTE | 2025-08-16 15:15 | CASEMGMT ---
Social Work- SW met with pt son who reports that, in conferring with pt and family, would like SW to refer to TCU as FOC with [facility] now being alternate. SW referred to TCU. SW remains available to follow. GONZALES Lugo
[2025-08-16 16:00] VITALS: BP 131/63; PULSE 80; RESP 16; TEMP 36.6; O2SAT 96
--- NOTE | 2025-08-16 16:16 | PN.HOSP_ITS ---
Reason for Visit Chief Complaint: Confusion Objective Data Objective Data Vital Signs: Vital Signs Temp Pulse Resp BP Pulse Ox O2 Del Method O2 Flow Rate 98.3 F 86 16 134/64 H 96 Room Air 2 08/16/25 08:44 08/16/25 08:44 08/16/25 08:44 08/16/25 08:44 08/16/25 08:44 08/16/25 09:44 08/16/25 02:00 Oxygen Flow Rate (L/min) 2 Oxygen Delivery Method Room Air Weight: 173 lb 15.115 oz Body Mass Index (BMI) 30.8 Intake & Output: Intake and Output for Last 24 Hours 08/14/25 08/15/25 08/16/25 23:59 23:59 23:59 Intake Total 2000 / 2200 3000 / 3000 Output Total 400 / 400 1000 / 1300 700 / 700 Balance 1600 / 1800 2000 / 1700 -700 / -700 Lab / Micro Data 08/15/25 05:23 08/15/25 05:23 Labs: Laboratory Results - last 24 hr 08/15/25 16:15: POC Glucose 195 H 08/15/25 21:48: POC Glucose 148 H 08/16/25 05:40: Total Creatine Kinase 51 08/16/25 06:05: POC Glucose 109 H Micro: Microbiology 08/14/25 13:49 Urine, Catheterized Urine Culture - Preliminary Yeast, not Cecy albicans Rhythm Strip Rhythm Strip: Sinus Tach Rate: 112 Ectopy: None Physical Exam Narrative Seen and examined. Patient is awake alert oriented x 3. She she is communicating well. Mental status much improved compared to yesterday. Physical exam General: Alert, Oriented x3, Cooperative HEENT: Atraumatic, PERRLA, EOMI, Normocephalic. Oral: No Gingival or Mucosal Lesions/ Ulcerations Neck: Supple, No JVD, Negative Carotid Bruits Chest wall/Lungs: Air entry diminished in bilateral lung bases L> R. No crepitations Cardiovascular: Regular rate and rhythm, Normal S1,S2, No M/G/R Abdomen: Bowel Sounds Present, Soft, Non Tender, Non-Distended : No dysuria. No renal angle tenderness. No suprapubic tenderness. Extremities: Bilateral lower extremity edema edema, Capillary Refill Less than 3 Seconds Skin: Lower legs wound covered with Dimas wrap bandage. Musculoskeletal: No Tenderness to Palpation of Joints or Extremities Neurological: Cranial nerves II-XII grossly intact, DTR 2+/4. No acute focal neurological deficit. Psych/Mental Status: Appropriate affect Assessment & Plan Assessment/Plan (1) KATELYN (acute kidney injury): PLAN: Plan Patient is an 89-year-old female who presented to [facility] ED on 08/14/2025 with confusion and altered level of consciousness. Patient was only self oriented in ED. History of DM, PE and hypertension. Recently started on antibiotics Cipro and Flagyl for 2 weeks for wound, bilateral lower leg edema and ulcerations 1. Severe KATELYN with suspected uremia prerenal suspected from overdiuresis/Lasix: ? Admit under inpatient status to [facility]. Creatinine 4.25, BUN 123 on admit. Baseline creatinine around 0.9. Creatinine 1.8 about 2 weeks ago. Suspect prerenal etiology secondary to overdiuresis from Lasix. Urine sodium and creatinine ordered to calculate FeNa. Given 2 L of IV fluids in the ED. 08/15: Serum sodium 143, BUN/creatinine shows improvement 78/2.04. Urine sodium 36, creatinine 65.10. Seen by iuss acoustic analyst. Creatinine improving 08/16: Supervisor Fusing Room consult reviewed. UA fairly benign. CPK normal. Last known normal creatinine 0.9 was from November 08. Patient is a risk of fluid overload because of lower extremity edema and chest x-ray individually reviewed shows cardiomegaly with mild chronic central vascular congestion. Blunting of left CP angle consistent with moderate effusion. Labs pending 2. Acute on chronic debility with concern for underlying dementia/possible depression ? PT/OT/case management consulted. Patient lives at home alone, son lives nearby. Son notes that patient has had worsening functional status over the past few months and her lower extremity wounds with ulcerations have been difficult to manage. Sons are in agreement with SNF placement as she needs more nursing care and physical therapy. More forgetful, cries easily. 3. Bilateral lower extremity edema with wounds and ulcerations ? Wound care consulted. Has been following with wound care center recently, see notes from 08/02 and 08/09. Appreciate further wound care recommendations. Chronic medical conditions: ? Class I obesity: BMI 30 on admit., He is hospital course and care. ? Hypertension: Holding home lisinopril given KATELYN as above and as patient was borderline hypotensive on admit. ? Hypothyroidism: Continue home Synthroid. ? Type 2 diabetes mellitus: Hold home sitagliptin. Will treat with sliding scale insulin with meals while inpatient, adjust as needed. Glucose 127. BMP glucose 113. DVT prophylaxis: Heparin subcu CODE STATUS: DNR-CCA, DNI Microbiology Past 72 Hours 08/14/25 13:49 Urine, Catheterized Urine Culture - Preliminary Yeast, not Cecy albicans Laboratory Results 08/15/25 16:15: POC Glucose 195 H 08/15/25 21:48: POC Glucose 148 H 08/16/25 05:40: Total Creatine Kinase 51 08/16/25 06:05: POC Glucose 109 H 08/14/25 13:16: WBC 11.7 H, RBC 3.94 L, Hgb 12.6, Hct 37.4, MCV 94.9, MCH 32.0, MCHC 33.7, RDW Std Deviation 53.1 H, RDW Coeff of Marguerite 15.3 H, Plt Count 213, MPV 10.4, Immature Gran % (Auto) 2.000 H, Neut % (Auto) 68.4, Lymph % (Auto) 15.2 L, [place] % (Auto) 10.2 H, Eos % (Auto) 3.6, Baso % (Auto) 0.6, Absolute Neuts (auto) 8.0 H, Absolute Lymphs (auto) 1.78, Nucleated RBC % 0, Sodium 138, Potassium 4.8, Chloride 97 L, Carbon Dioxide 25.1, Anion Gap 16 H, B UN 123 H*, Creatinine 4.25 H, Estim Creat Clear Calc 9.06 L*, Est GFR (MDRD) Non-Af 9 L, BUN/Creatinine Ratio 28.9 H, Glucose 120 H, Hemoglobin A1c 8.1 H, Calcium 8.8, Total Creatine Kinase 55 08/14/25 13:49: Urine Color Yellow, Urine Clarity Cloudy, Urine pH 5.0, Ur Specific [place] 1.015, Urine Protein 30 H, Urine Glucose (UA) Normal, Urine Ketones Negative, Urine Occult Blood 50 H, Urine Nitrite Negative, Urine Bilirubin Negative, Urine Urobilinogen Normal, Ur Leukocyte Esterase 500 H, Urine RBC 0 SEEN, Urine WBC >100 SEEN, Ur Squamous Epith Cells 0 SEEN, Urine Bacteria 0 SEEN, Urine Mucus 0 SEEN, Ur Random Sodium 36, Urine Creatinine 65.10 08/14/25 22:51: POC Glucose 152 H 08/15/25 05:23: WBC 9.6, RBC 3.39 L, Hgb 10.6 L, Hct 32.6 L, MCV 96.2, MCH 31.3, MCHC 32.5, RDW Std Deviation 53.4 H, RDW Coeff of Marguerite 15.4 H, Plt Count 189, MPV 10.4, Sodium 143, Potassium 3.9, Chloride 109 H, Carbon Dioxide 22.3, Anion Gap 12, BUN 78 H, Creatinine 2.04 H, Estim Creat Clear Calc 18.60 L, Est GFR (MDRD) Non-Af 23 L, BUN/Creatinine Ratio 38.2 H, Glucose 113 H, Calcium 7.8, Total Creatine Kinase 54 08/15/25 06:41: POC Glucose 127 H Clinical Impression(s) from Imaging Studies Chest X-Ray 08/14/25 13:12 IMPRESSION: There is cardiomegaly with mild central vascular congestion, similar to the prior. There is no focal infiltrate. There is blunting of the costophrenic angle on the left consistent with a moderate effusion. Reading Location: [facility] Brain CT 08/14/25 13:25 IMPRESSION: 1. No evidence of intracranial hemorrhage or acute ischemia. 2. Changes of chronic microvascular ischemia and volume loss. Reading Location: [id number] Charges/Coding Visit Charges Inpatient E&M: 14506 Subs Hosp L2
[2025-08-16 18:41] LABS: Hematocrit 31.7 % (37-47); Hemoglobin 10.3 g/dL (12.0-15.0); Immature Granulocytes Count 0.230 X10^3/uL (0.0-0.0); Mean Corp Hgb Conc 32.5 g/dL (32-36); Mean Corpuscular Volume 96.6 fL (81-99); Mean Platelet Vol. 9.7 fl (6.2-12.0); NRBC Flagged by Analyzer 0 % (0-5); Platelet Count 212 K/mm3 (150-450); RBC Distribution Width CV 15.1 % (11.6-14.6); RBC Distribution Width SD 53.6 fl (35.1-43.9); Red Blood Count 3.28 M/mm3 (4.2-5.4); White Blood Count 11.1 K/mm3 (4.4-11.0)
[2025-08-16 19:10] LABS: Anion Gap 13 (5-15); BUN 44 mg/dL (4-19); BUN/Creat Ratio 34.3 RATIO (10-20); Calcium,Total 8.3 mg/dL (7.6-11.0); Carbon Dioxide 23.9 mmol/L (21.0-32.0); Chloride 102 mmol/L (98-108); Estimated Creatinine Clearance 29.87 ml/min (50-250); Glucose 180 mg/dL (70-99); Potassium 4.1 mmol/L (3.3-5.1)
[2025-08-16 21:50] VITALS: BP 107/56; PULSE 76; RESP 16; TEMP 37.1; O2SAT 99
[2025-08-17] MEDS: MELATONIN 3 MG TABLET PO (00:54)
[2025-08-17 02:00] VITALS: BP 137/66; PULSE 81; RESP 18; TEMP 36.7; O2SAT 98
[2025-08-17] MEDS: Heparin Injection (Vial) 5,000 UNIT/ML VIAL 5000 UNIT SC ×3 (06:02→22:50)
[2025-08-17 07:10] LABS: Anion Gap 11 (5-15); BUN 35 mg/dL (4-19); BUN/Creat Ratio 32.5 RATIO (10-20); CPK Total, Creatine Kinase 46 U/L (24-195); Calcium,Total 8.6 mg/dL (7.6-11.0); Carbon Dioxide 24.3 mmol/L (21.0-32.0); Chloride 105 mmol/L (98-108); Estimated Creatinine Clearance 35.12 ml/min (50-250); Glucose 124 mg/dL (70-99); Potassium 4.0 mmol/L (3.3-5.1)
[2025-08-17] MEDS: Glucerna Shake 120 ML LIQUID PO ×2 (09:30→16:21)
[2025-08-17 09:33] VITALS: BP 148/65; PULSE 74; RESP 18; TEMP 36.9; O2SAT 98
--- NOTE | 2025-08-17 09:37 | PCM.PN.HOSP ---
Reason for Visit Chief Complaint: Confusion Objective Data Objective Data Vital Signs: Vital Signs Temp Pulse Resp BP Pulse Ox O2 Del Method O2 Flow Rate 98.5 F 74 18 148/65 H 98 Room Air 2 08/17/25 09:33 08/17/25 09:33 08/17/25 09:33 08/17/25 09:33 08/17/25 09:33 08/17/25 09:33 08/16/25 02:00 Oxygen Flow Rate (L/min) 2 Oxygen Delivery Method Room Air Weight: 173 lb 15.115 oz Body Mass Index (BMI) 30.8 Intake & Output: Intake and Output for Last 24 Hours 08/15/25 08/16/25 08/17/25 23:59 23:59 23:59 Intake Total 3000 / 3000 950 / 950 Output Total 1000 / 1300 700 / 700 800 / 800 Balance 2000 / 1700 250 / 250 -800 / -800 Lab / Micro Data 08/16/25 18:31 08/17/25 06:25 Labs: Laboratory Results - last 24 hr 08/16/25 12:17: POC Glucose 168 H 08/16/25 16:01: POC Glucose 180 H 08/16/25 18:31: WBC 11.1 H, RBC 3.28 L, Hgb 10.3 L, Hct 31.7 L, MCV 96.6, MCH 31.4, MCHC 32.5, RDW Std Deviation 53.6 H, RDW Coeff of Marguerite 15.1 H, Plt Count 212, MPV 9.7, Immature Gran % (Auto) 2.100 H, Neut % (Auto) 66.4, Lymph % (Auto) 18.2 L, [place] % (Auto) 9.0, Eos % (Auto) 3.8, Baso % (Auto) 0.5, Absolute Neuts (auto) 7.4, Absolute Lymphs (auto) 2.02, Nucleated RBC % 0, Sodium 138, Potassium 4.1, Chloride 102, Carbon Dioxide 23.9, Anion Gap 13, BUN 44 H, Creatinine 1.27 H, Estim Creat Clear Calc 29.87 L, Est GFR (MDRD) Non-Af 40 L, BUN/Creatinine Ratio 34.3 H, Glucose 180 H, Calcium 8.3 08/16/25 21:35: POC Glucose 173 H 08/17/25 06:06: POC Glucose 115 H 08/17/25 06:25: Sodium 140, Potassium 4.0, Chloride 105, Carbon Dioxide 24.3, Anion Gap 11, BUN 35 H, Creatinine 1.08, Estim Creat Clear Calc 35.12 L, Est GFR (MDRD) Non-Af 49 L, BUN/Creatinine Ratio 32.5 H, Glucose 124 H, Calcium 8.6, Total Creatine Kinase 46 Micro: Microbiology 08/14/25 13:49 Urine, Catheterized Urine Culture - Final Yeast, not Cecy albicans Rhythm Strip Rhythm Strip: Sinus Tach Rate: 112 Ectopy: None Physical Exam Narrative Seen and examined. Patient is awake alert oriented x 3. She is doing well, communicating intact and meaningful. Mental status much improved compared to yesterday. Physical exam General: Alert, Oriented x3, Cooperative HEENT: Atraumatic, PERRLA, EOMI, Normocephalic. Oral: No Gingival or Mucosal Lesions/ Ulcerations Neck: Supple, No JVD, Negative Carotid Bruits Chest wall/Lungs: Air entry diminished in bilateral lung bases L> R. No crepitations Cardiovascular: Regular rate and rhythm, Normal S1,S2, No M/G/R Abdomen: Bowel Sounds Present, Soft, Non Tender, Non-Distended : No dysuria. No renal angle tenderness. No suprapubic tenderness. Extremities: Bilateral lower extremity edema improving. Legs much dry. Capillary Refill Less than 3 Seconds Skin: Lower legs wound covered with Dimas wrap bandage. Musculoskeletal: No Tenderness to Palpation of Joints or Extremities Neurological: Cranial nerves II-XII grossly intact, DTR 2+/4. No acute focal neurological deficit. Psych/Mental Status: Appropriate affect Assessment & Plan Assessment/Plan (1) KATELYN (acute kidney injury): PLAN: Plan Patient is an 89-year-old female who presented to [facility] ED on 08/14/2025 with confusion and altered level of consciousness. Patient was only self oriented in ED. History of DM, PE and hypertension. Recently started on antibiotics Cipro and Flagyl for 2 weeks for wound, bilateral lower leg edema and ulcerations 1. Severe KATELYN with suspected uremia prerenal suspected from overdiuresis/Lasix: ? Admit under inpatient status to [facility]. Creatinine 4.25, BUN 123 on admit. Baseline creatinine around 0.9. Creatinine 1.8 about 2 weeks ago. Suspect prerenal etiology secondary to overdiuresis from Lasix. Urine sodium and creatinine ordered to calculate FeNa. Given 2 L of IV fluids in the ED. 08/15: Serum sodium 143, BUN/creatinine shows improvement 78/2.04. Urine sodium 36, creatinine 65.10. Seen by motion picture actor. Creatinine improving 08/16: Farm Reporter consult reviewed. UA fairly benign. CPK normal. Last known normal creatinine 0.9 was from November 08. Patient is a risk of fluid overload because of lower extremity edema and chest x-ray individually reviewed shows cardiomegaly with mild chronic central vascular congestion. Blunting of left CP angle consistent with moderate effusion. Labs pending 08/27: BUN/creatinine 35/1.08. KATELYN resolved. Urine culture shows yeast, funguria. UTI ruled out. Microbiology Past 72 Hours 08/14/25 13:49 Urine, Catheterized Urine Culture - Final Yeast, not Cecy albicans 2. Acute on chronic debility with concern for underlying dementia/possible depression ? PT/OT/case management consulted. Patient lives at home alone, son lives nearby. Son notes that patient has had worsening functional status over the past few months and her lower extremity wounds with ulcerations have been difficult to manage. Sons are in agreement with SNF placement as she needs more nursing care and physical therapy. More forgetful, cries easily. 08/17: Patient needs pre-CERT for long-term. 3. Bilateral lower extremity edema with wounds and ulcerations ? Wound care consulted. Has been following with wound care center recently, see notes from 08/02 and 08/09. Appreciate further wound care recommendations. 08/17: Furosemide from tomorrow a.m. 40 mg daily. Chronic medical conditions: ? Class I obesity: BMI 30 on admit., He is hospital course and care. ? Hypertension: Holding home lisinopril given KATELYN as above and as patient was borderline hypotensive on admit. ? Hypothyroidism: Continue home Synthroid. ? Type 2 diabetes mellitus: Hold home sitagliptin. Will treat with sliding scale insulin with meals while inpatient, adjust as needed. Glucose 127. BMP glucose 113. DVT prophylaxis: Heparin subcu CODE STATUS: DNR-CCA, DNI Microbiology Past 72 Hours 08/14/25 13:49 Urine, Catheterized Urine Culture - Final Yeast, not Cecy albicans Laboratory Results 08/16/25 18:31: WBC 11.1 H, RBC 3.28 L, Hgb 10.3 L, Hct 31.7 L, MCV 96.6, MCH 31.4, MCHC 32.5, RDW Std Deviation 53.6 H, RDW Coeff of Marguerite 15.1 H, Plt Count 212, MPV 9.7, Immature Gran % (Auto) 2.100 H, Neut % (Auto) 66.4, Lymph % (Auto) 18.2 L, [place] % (Auto) 9.0, Eos % (Auto) 3.8, Baso % (Auto) 0.5, Absolute Neuts (auto) 7.4, Absolute Lymphs (auto) 2.02, Nucleated RBC % 0, Sodium 138, Potassium 4.1, Chloride 102, Carbon Dioxide 23.9, Anion Gap 13, BUN 44 H, Creatinine 1.27 H, Estim Creat Clear Calc 29.87 L, Est GFR (MDRD) Non-Af 40 L, BUN/Creatinine Ratio 34.3 H, Glucose 180 H, Calcium 8.3 08/16/25 21:35: POC Glucose 173 H 08/17/25 06:06: POC Glucose 115 H 08/17/25 06:25: Sodium 140, Potassium 4.0, Chloride 105, Carbon Dioxide 24.3, Anion Gap 11, BUN 35 H, Creatinine 1.08, Estim Creat Clear Calc 35.12 L, Est GFR (MDRD) Non-Af 49 L, BUN/Creatinine Ratio 32.5 H, Glucose 124 H, Calcium 8.6, Total Creatine Kinase 46 08/17/25 11:41: POC Glucose 148 H 08/17/25 16:15: POC Glucose 209 H Clinical Impression(s) from Imaging Studies Chest X-Ray 08/14/25 13:12 IMPRESSION: There is cardiomegaly with mild central vascular congestion, similar to the prior. There is no focal infiltrate. There is blunting of the costophrenic angle on the left consistent with a moderate effusion. Reading Location: [facility] Brain CT 08/14/25 13:25 IMPRESSION: 1. No evidence of intracranial hemorrhage or acute ischemia. 2. Changes of chronic microvascular ischemia and volume loss. Reading Location: [id number] Charges/Coding Visit Charges Inpatient E&M: 05652 Subs Hosp L2
--- NOTE | 2025-08-17 10:53 | CASEMGMT ---
Discharge Planning Pt has been accepted by another snf that was her foc. [facility] updated and asked to cancel precert. Dennise Kaiser DC Planning Asst.
--- NOTE | 2025-08-17 13:19 | CASEMGMT ---
Social Work- SW received notice that TCU accepted referral. SW updated DCA that referral to [facility] can be cancelled at this time. SW updated pt and pt son. Precert started by TCU. Plan: TCU; pend precert GONZALES Lugo
[2025-08-17 14:04] VITALS: BP 131/59; PULSE 78; RESP 17; TEMP 36.4; O2SAT 96
--- NOTE | 2025-08-17 16:50 | PCM.PN.REN ---
Subjective Subjective Sitting in chair, no overnight events. No complaints. Objective Data Objective Data Vital Signs: Vital Signs Temp Pulse Resp BP Pulse Ox O2 Del Method O2 Flow Rate 97.6 F L 78 17 131/59 H 96 Room Air 2 08/17/25 14:04 08/17/25 14:04 08/17/25 14:04 08/17/25 14:04 08/17/25 14:04 08/17/25 14:04 08/16/25 02:00 Oxygen Flow Rate (L/min) 2 Oxygen Delivery Method Room Air Weight: 78.9 kg Body Mass Index (BMI) 30.8 Intake & Output: Intake and Output for Last 24 Hours 08/15/25 08/16/25 08/17/25 23:59 23:59 23:59 Intake Total 3000 / 3000 950 / 950 Output Total 1000 / 1300 700 / 700 800 / 800 Balance 2000 / 1700 250 / 250 -800 / -800 Lab / Micro Data 08/16/25 18:31 08/17/25 06:25 Labs: Laboratory Results - last 24 hr 08/16/25 18:31: WBC 11.1 H, RBC 3.28 L, Hgb 10.3 L, Hct 31.7 L, MCV 96.6, MCH 31.4, MCHC 32.5, RDW Std Deviation 53.6 H, RDW Coeff of Marguerite 15.1 H, Plt Count 212, MPV 9.7, Immature Gran % (Auto) 2.100 H, Neut % (Auto) 66.4, Lymph % (Auto) 18.2 L, [place] % (Auto) 9.0, Eos % (Auto) 3.8, Baso % (Auto) 0.5, Absolute Neuts (auto) 7.4, Absolute Lymphs (auto) 2.02, Nucleated RBC % 0, Sodium 138, Potassium 4.1, Chloride 102, Carbon Dioxide 23.9, Anion Gap 13, BUN 44 H, Creatinine 1.27 H, Estim Creat Clear Calc 29.87 L, Est GFR (MDRD) Non-Af 40 L, BUN/Creatinine Ratio 34.3 H, Glucose 180 H, Calcium 8.3 08/16/25 21:35: POC Glucose 173 H 08/17/25 06:06: POC Glucose 115 H 08/17/25 06:25: Sodium 140, Potassium 4.0, Chloride 105, Carbon Dioxide 24.3, Anion Gap 11, BUN 35 H, Creatinine 1.08, Estim Creat Clear Calc 35.12 L, Est GFR (MDRD) Non-Af 49 L, BUN/Creatinine Ratio 32.5 H, Glucose 124 H, Calcium 8.6, Total Creatine Kinase 46 08/17/25 11:41: POC Glucose 148 H 08/17/25 16:15: POC Glucose 209 H Micro: Microbiology 08/14/25 13:49 Urine, Catheterized Urine Culture - Final Yeast, not Cecy albicans Rhythm Strip Rhythm Strip: Sinus Tach Rate: 112 Ectopy: None Physical Exam Narrative Alert and oriented no obvious distress no JVD s1s2 no murmurs lungs clear abdomen soft no organomegaly ++ edema Assessment & Plan Assessment/Plan (1) KATELYN (acute kidney injury): PLAN: Last known baseline creatinine is less than 1 from October 2024. Creatinine was about 1.8 about 2 weeks ago. Came with a creatinine of 4.2, significantly better. Admission BUN was more than 100, also significantly better. As per admission records, she has been started on increasing dose of diuretics in view of lower extremity edema. Most likely change in creatinine is hemodynamic changes with volume shifts. Since creatinine is significantly better today, hold off on further workup. Urine analysis fairly benign. Discussed with family bedside 08/16/2025. Asymptomatic. Last creatinine 2.0, labs from today pending. 08/17/2025: overall renal function stable, improved. SCr 1.08mg/dL, potassium and bicarb normal. Had been on lasix 40mg bid and lisiniopril, both on hold. BPs acceptable, on room air. Can start lower dose diuretic per primary team and follow renal function, lytes. Assessment and plan reviewed with Dr. Davis.
[2025-08-17 23:01] VITALS: BP 133/59; PULSE 69; RESP 16; TEMP 36.7; O2SAT 95
[2025-08-18 05:00] VITALS: BP 118/57; PULSE 66; RESP 16; TEMP 36.6; O2SAT 95
[2025-08-18] MEDS: Heparin Injection (Vial) 5,000 UNIT/ML VIAL 5000 UNIT SC ×2 (05:04→14:26)
[2025-08-18 06:10] LABS: Hematocrit 31.4 % (37-47); Hemoglobin 10.4 g/dL (12.0-15.0); Immature Granulocytes Count 0.350 X10^3/uL (0.0-0.0); Mean Corp Hgb Conc 33.1 g/dL (32-36); Mean Corpuscular Volume 95.4 fL (81-99); Mean Platelet Vol. 9.6 fl (6.2-12.0); NRBC Flagged by Analyzer 0.2 % (0-5); Platelet Count 216 K/mm3 (150-450); RBC Distribution Width CV 15.3 % (11.6-14.6); RBC Distribution Width SD 52.5 fl (35.1-43.9); Red Blood Count 3.29 M/mm3 (4.2-5.4); White Blood Count 9.9 K/mm3 (4.4-11.0)
[2025-08-18 06:51] LABS: Anion Gap 12 (5-15); BUN 30 mg/dL (4-19); BUN/Creat Ratio 31.0 RATIO (10-20); Calcium,Total 8.4 mg/dL (7.6-11.0); Carbon Dioxide 24.5 mmol/L (21.0-32.0); Chloride 103 mmol/L (98-108); Estimated Creatinine Clearance 39.51 ml/min (50-250); Glucose 147 mg/dL (70-99); Potassium 3.5 mmol/L (3.3-5.1)
[2025-08-18 06:59] VITALS: O2SAT 95
[2025-08-18 07:59] VITALS: BP 119/72; PULSE 97; RESP 18; TEMP 36.4; O2SAT 96
[2025-08-18] MEDS: Glucerna Shake 120 ML LIQUID PO ×3 (08:04→16:11)
[2025-08-18] MEDS: Potassium Chloride Oral Tablet 20 MEQ 40 MEQ PO (08:10)
[2025-08-18 14:21] VITALS: BP 115/55; PULSE 94; RESP 18; TEMP 36.1; O2SAT 95
--- NOTE | 2025-08-18 15:21 | PCM.PN.REN ---
Subjective Subjective no new events Objective Data Objective Data Vital Signs: Vital Signs Temp Pulse Resp BP Pulse Ox O2 Del Method O2 Flow Rate 97.0 F L 94 18 115/55 L 95 Room Air 2 08/18/25 14:21 08/18/25 14:21 08/18/25 14:21 08/18/25 14:21 08/18/25 14:21 08/18/25 14:21 08/16/25 02:00 Oxygen Flow Rate (L/min) 2 Oxygen Delivery Method Room Air Weight: 78.9 kg Body Mass Index (BMI) 30.8 Intake & Output: Intake and Output for Last 24 Hours 08/16/25 08/17/25 08/18/25 23:59 23:59 23:59 Intake Total 950 / 950 200 / 450 690 / 690 Output Total 700 / 700 800 / 800 Balance 250 / 250 -600 / -350 690 / 690 Lab / Micro Data 08/18/25 05:38 08/18/25 05:38 Labs: Laboratory Results - last 24 hr 08/17/25 16:15: POC Glucose 209 H 08/17/25 23:00: POC Glucose 162 H 08/18/25 05:38: WBC 9.9, RBC 3.29 L, Hgb 10.4 L, Hct 31.4 L, MCV 95.4, MCH 31.6, MCHC 33.1, RDW Std Deviation 52.5 H, RDW Coeff of Marguerite 15.3 H, Plt Count 216, MPV 9.6, Immature Gran % (Auto) 3.500 H, Neut % (Auto) 63.0, Lymph % (Auto) 20.8, [place] % (Auto) 9.3, Eos % (Auto) 2.9, Baso % (Auto) 0.5, Absolute Neuts (auto) 6.3, Absolute Lymphs (auto) 2.06, Nucleated RBC % 0.2, Sodium 139, Potassium 3.5, Chloride 103, Carbon Dioxide 24.5, Anion Gap 12, BUN 30 H, Creatinine 0.96, Estim Creat Clear Calc 39.51 L, Est GFR (MDRD) Non-Af 57 L, BUN/Creatinine Ratio 31.0 H, Glucose 147 H, Calcium 8.4 08/18/25 06:57: POC Glucose 120 H 08/18/25 11:10: POC Glucose 150 H Micro: Microbiology 08/14/25 13:49 Urine, Catheterized Urine Culture - Final Yeast, not Cecy albicans Rhythm Strip Rhythm Strip: Sinus Tach Rate: 112 Ectopy: None Physical Exam Narrative Alert and oriented no obvious distress no JVD s1s2 no murmurs lungs clear abdomen soft no organomegaly ++ edema Assessment & Plan Assessment/Plan (1) KATELYN (acute kidney injury): PLAN: Last known baseline creatinine is less than 1 from October 2024. Creatinine was about 1.8 about 2 weeks ago. Came with a creatinine of 4.2, significantly better. Admission BUN was more than 100, also significantly better. As per admission records, she has been started on increasing dose of diuretics in view of lower extremity edema. Most likely change in creatinine is hemodynamic changes with volume shifts. Since creatinine is significantly better today, hold off on further workup. Urine analysis fairly benign. Discussed with family bedside 08/16/2025. Asymptomatic. Last creatinine 2.0, labs from today pending. 08/17/2025: overall renal function stable, improved. SCr 1.08mg/dL, potassium and bicarb normal. Had been on lasix 40mg bid and lisiniopril, both on hold. BPs acceptable, on room air. Can start lower dose diuretic per primary team and follow renal function, lytes. Assessment and plan reviewed with Dr. Davis. 08/18/25. cr better. dw Dr Dior.
--- NOTE | 2025-08-18 15:32 | TREXTCAR_ITS ---
Diet Diet Order/Speech Therapy: INPATIENT Hospital Diet / Speech Therapy Order(s) 08/15/25 13:17 Diet: Cardiac: Calorie-Controlled Food consistency:: Regular Liquid Consistency:: Regular/Thin Dietary Modifications:: Consistent Carbohydrate Type of Dietary Supplement:: Joe B & D Diet Comments: Joe with breakfast and dinner tray How many daily calories?: 1600 calorie Routine Orders/Code Status Suppository Type: Dulcolax 10mg Suppository Frequency: Daily PRN Routine Lab Work: BMP (BMP in 3 days and follow-up PCP) DC O2, CPAP, BIPAP needs Home O2 Discharge instructions: No Wound(s) buttock: Wound Type: Pressure Injury right lower leg: Wound Type: cluster of stasis ulcers Dressing Change: AntiMicrobial (Aquacel AG, etc) left lower leg: Wound Type: Stasis Ulcer Dressing Change: AntiMicrobial (Aquacel AG, etc) Therapies Extremity Affected:: Bilateral Lower Physical Therapy: Eval and Treat Occupational Therapy: Eval and Treat Speech Therapy: Eval and Treat Problem/Diagnosis (1) KATELYN (acute kidney injury): Status: Acute Code(s): N17.9 - Acute kidney failure, unspecified Plan Patient is an 89-year-old female who presented to [facility] ED on 08/14/2025 with confusion and altered level of consciousness. Patient was only self oriented in ED. History of DM, PE and hypertension. Recently started on antibiotics Cipro and Flagyl for 2 weeks for wound, bilateral lower leg edema and ulcerations 1. Severe KATELYN with suspected uremia prerenal suspected from overdiuresis/Lasix: ? Admit under inpatient status to [facility]. Creatinine 4.25, BUN 123 on admit. Baseline creatinine around 0.9. Creatinine 1.8 about 2 weeks ago. Suspect prerenal etiology secondary to overdiuresis from Lasix. Urine sodium and creatinine ordered to calculate FeNa. Given 2 L of IV fluids in the ED. 08/15: Serum sodium 143, BUN/creatinine shows improvement 78/2.04. Urine sodium 36, creatinine 65.10. Seen by head of music. Creatinine improving 08/16: Community Center Coordinator consult reviewed. UA fairly benign. CPK normal. Last known normal creatinine 0.9 was from November 08. Patient is a risk of fluid overload because of lower extremity edema and chest x-ray individually reviewed shows cardiomegaly with mild chronic central vascular congestion. Blunting of left CP angle consistent with moderate effusion. Labs pending 08/27: BUN/creatinine 35/1.08. KATELYN resolved. Urine culture shows yeast, funguria. UTI ruled out. Microbiology Past 72 Hours 08/14/25 13:49 Urine, Catheterized Urine Culture - Final Yeast, not Cecy albicans 2. Acute on chronic debility with concern for underlying dementia/possible depression ? PT/OT/case management consulted. Patient lives at home alone, son lives nearby. Son notes that patient has had worsening functional status over the past few months and her lower extremity wounds with ulcerations have been difficult to manage. Sons are in agreement with SNF placement as she needs more nursing care and physical therapy. More forgetful, cries easily. 08/17: Patient needs pre-CERT for skilled nursing. 3. Bilateral lower extremity edema with wounds and ulcerations ? Wound care consulted. Has been following with wound care center recently, see notes from 08/02 and 08/09. Appreciate further wound care recommendations. 08/17: Furosemide from tomorrow a.m. 40 mg daily. Chronic medical conditions: ? Class I obesity: BMI 30 on admit., He is hospital course and care. ? Hypertension: Holding home lisinopril given KATELYN as above and as patient was borderline hypotensive on admit. ? Hypothyroidism: Continue home Synthroid. ? Type 2 diabetes mellitus: Hold home sitagliptin. Will treat with sliding scale insulin with meals while inpatient, adjust as needed. Glucose 127. BMP glucose 113. DVT prophylaxis: Heparin subcu CODE STATUS: DNR-CCA, DNI Microbiology Past 72 Hours 08/14/25 13:49 Urine, Catheterized Urine Culture - Final Yeast, not Cecy albicans Laboratory Results 08/16/25 18:31: WBC 11.1 H, RBC 3.28 L, Hgb 10.3 L, Hct 31.7 L, MCV 96.6, MCH 31.4, MCHC 32.5, RDW Std Deviation 53.6 H, RDW Coeff of Marguerite 15.1 H, Plt Count 212, MPV 9.7, Immature Gran % (Auto) 2.100 H, Neut % (Auto) 66.4, Lymph % (Auto) 18.2 L, [place] % (Auto) 9.0, Eos % (Auto) 3.8, Baso % (Auto) 0.5, Absolute Neuts (auto) 7.4, Absolute Lymphs (auto) 2.02, Nucleated RBC % 0, Sodium 138, Potassium 4.1, Chloride 102, Carbon Dioxide 23.9, Anion Gap 13, BUN 44 H, Creatinine 1.27 H, Estim Creat Clear Calc 29.87 L, Est GFR (MDRD) Non-Af 40 L, BUN/Creatinine Ratio 34.3 H, Glucose 180 H, Calcium 8.3 08/16/25 21:35: POC Glucose 173 H 08/17/25 06:06: POC Glucose 115 H 08/17/25 06:25: Sodium 140, Potassium 4.0, Chloride 105, Carbon Dioxide 24.3, Anion Gap 11, BUN 35 H, Creatinine 1.08, Estim Creat Clear Calc 35.12 L, Est GFR (MDRD) Non-Af 49 L, BUN/Creatinine Ratio 32.5 H, Glucose 124 H, Calcium 8.6, Total Creatine Kinase 46 08/17/25 11:41: POC Glucose 148 H 08/17/25 16:15: POC Glucose 209 H Clinical Impression(s) from Imaging Studies Chest X-Ray 08/14/25 13:12 IMPRESSION: There is cardiomegaly with mild central vascular congestion, similar to the prior. There is no focal infiltrate. There is blunting of the costophrenic angle on the left consistent with a moderate effusion. [facility] 08/14/25 13:25 IMPRESSION: 1. No evidence of intracranial hemorrhage or acute ischemia. 2. Changes of chronic microvascular ischemia and volume loss. Reading Location: [id number] Allergies/Procedures Done in Hospital Allergies No Known Allergies Allergy (Verified 02/12/23 19:03) Type of Care/Length of Stay Estimated LOS: Convalescent Care Less Than 30 days Type of Care Needed: Skilled Rehab Potential: Good Prognosis: Good Additional Orders/Day of Discharge Day of Discharge: 08/18/25 Dietary and Speech Recommendations Dietitian Recommendations/Changes: Will change diet to 1600 calorie/cardiac; consistent carbohydrate. Will add Joe BID with breakfast and dinner tray. Will continue 120mL glucerna shake 3 times per day with medpass. Monitor need for renal diet restrictions if BUN/creat remain elevated. Discharge Plan Admission Admit Date/Time: 08/14/25 15:23 Attending Provider: Bhavik Dior Primary Care Provider: Jessa Alberto Consulting Providers: ePpe Cruz; Glen Davis Instructions Additional Instructions / Restrictions: Patient completed 5 days of oral antibiotics Cipro and Flagyl as an outpatient. She has bilateral stasis/venous ulcer does not need further antibiotics. Follow-up in wound clinic. Discharge Orders/Prescriptions Prescriptions: New furosemide 40 mg Tablet 40 mg PO DAILY Qty: 0 0RF Rx Instructions: No similar 40 mg daily for 3 days and then as needed as needed for leg swelling. Patient is prone for KATELYN insulin lispro [Humalog KwikPen Insulin] 100 unit/mL Insulin Pen See Protocol subcut ACHS Qty: 0 0RF Protocol: 4. Sliding Scale Insulin High-Med Dosing Condition: 150-199 mg/dl = 2 units Condition: 200-259 mg/dl = 4 units Condition: 260-324 mg/dl = 6 units Condition: 325-374 mg/dl = 8 units Condition: 375-409 mg/dl = 10 units Condition: 410-449 mg/dl = 11 units Condition: Greater than 449 call physician Protocol Text: Suggested for: - Patients on Total Daily Insulin Dose of 56-80 units - Patient who are known to be insulin resistant or septic HIGH MEDIUM DOSING ALGORITHM potassium chloride 20 mEq Tablet,Er Particles/Crystals 40 meq PO DAILYCM Qty: 0 0RF Rx Instructions: Supplement with Lasix. menthol-zinc oxide [Calmoseptine] 0.44-20.6 % Ointment 1 applic topical TID Qty: 0 0RF Protocol: *Topical Application Instructions APPLICATION INSTRUCTIONS: buttock Continued levothyroxine 75 MCG tablet 75 mcg PO DAILY Held lisinopril 5 mg tablet 5 mg PO DAILY Hold Instructions: Hold for KATELYN Januvia 25 mg tablet 25 mg PO DAILY Hold Instructions: Hold for 5-day Discontinued furosemide 40 mg tablet 40 mg PO BID PRN PRN (Reason: swelling) metronidazole 250 mg tablet 250 mg PO TID ciprofloxacin HCl [Cipro] 500 mg tablet 500 mg PO BID potassium chloride 20 mEq tablet,ER particles/crystals 20 meq PO DAILY Referrals / Follow Up: Jessa Alberto MD [Primary Care Provider, Family Practice] Glen Davis MD [Med Staff - Consulting, Nephrology] - Within 2 Weeks Latrice Loredo NP, HEALTH AND WELLNESS DIRECTOR-C [Med Staff - Adv Practice Prof, Family Practice] - Within 1 Week Referral Note: Follow-up in wound clinic Disposition Disposition (needs filled in before D/C Order can be placed): [facility] Facility
--- NOTE | 2025-08-18 15:45 | DS.PCM_ITS ---
Providers Date of Admission: 08/14/25 Date of Discharge: 08/18/25 Primary Care Physician: Dr. Jessa Alberto MD Consultations 08/14/25 16:45 Consult: Onc/Wound/menhaden vessel pilot Routine Comment: Reason for Consult:: b/l LE wounds 08/15/25 07:47 Consult: Nephrology Routine Consulting Provider: Glen Davis Reason for Consult: KATELYN, was on antibiotic EMERGENT Consult: No MD Notified: Yes Date Notified: 08/15/25 Time Notified: 07:47 Method of Notification: Text Reason For Visit: SEVERE KATELYN Diagnosis Discharge Diagnosis (1) KATELYN (acute kidney injury): Status: Acute Code(s): N17.9 - Acute kidney failure, unspecified Plan Patient is an 89-year-old female who presented to [facility] ED on 08/14/2025 with confusion and altered level of consciousness. Patient was only self oriented in ED. History of DM, PE and hypertension. Recently started on antibiotics Cipro and Flagyl for 2 weeks for wound, bilateral lower leg edema and ulcerations 1. Severe KATELYN with suspected uremia prerenal suspected from overdiuresis/Lasix: ? Admit under inpatient status to [facility]. Creatinine 4.25, BUN 123 on admit. Baseline creatinine around 0.9. Creatinine 1.8 about 2 weeks ago. Suspect prerenal etiology secondary to overdiuresis from Lasix. Urine sodium and creatinine ordered to calculate FeNa. Given 2 L of IV fluids in the ED. 08/15: Serum sodium 143, BUN/creatinine shows improvement 78/2.04. Urine sodium 36, creatinine 65.10. Seen by plant physiology teacher. Creatinine improving 08/16: Batch Analyst consult reviewed. UA fairly benign. CPK normal. Last known normal creatinine 0.9 was from November 08. Patient is a risk of fluid overload because of lower extremity edema and chest x-ray individually reviewed shows cardiomegaly with mild chronic central vascular congestion. Blunting of left CP angle consistent with moderate effusion. Labs pending 08/17: BUN/creatinine 35/1.08. KATELYN resolved. Urine culture shows yeast, funguria. UTI ruled out. 08/18: Lasix 40 mg daily started, supplement potassium KCl.. Moving forward, recommend intermittently depending upon the leg swelling balance with kidney function. Follow-up with the plant physiology teacher Dr. Davis in 2 weeks 2. Acute on chronic debility with concern for underlying dementia/possible depression ? PT/OT/case management consulted. Patient lives at home alone, son lives nearby. Son notes that patient has had worsening functional status over the past few months and her lower extremity wounds with ulcerations have been difficult to manage. Sons are in agreement with SNF placement as she needs more nursing care and physical therapy. More forgetful, cries easily. 08/17: Patient needs pre-CERT for shelter. 08/18: Patient discharged to TCU 3. Bilateral lower extremity edema with wounds and ulcerations ? Wound care consulted. Has been following with wound care center recently, see notes from 08/02 and 08/09. Appreciate further wound care recommendations. 08/17: Furosemide from tomorrow a.m. 40 mg daily. 08/18: Wound photo reviewed. 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 Patient had 5 days of outpatient antibiotics. Wound does not look infected and does not need further antibiotic. Chronic medical conditions: ? Class I obesity: BMI 30 on admit., He is hospital course and care. ? Hypertension: Holding home lisinopril given KATELYN as above and as patient was borderline hypotensive on admit. ? Hypothyroidism: Continue home Synthroid. ? Type 2 diabetes mellitus: Hold home sitagliptin. Will treat with sliding scale insulin with meals while inpatient, adjust as needed. Glucose 127. BMP glucose 113. DVT prophylaxis: Heparin subcu CODE STATUS: DNR-CCA, DNI Microbiology Past 72 Hours 08/14/25 13:49 Urine, Catheterized Urine Culture - Final Yeast, not Cecy albicans Laboratory Results 08/16/25 18:31: WBC 11.1 H, RBC 3.28 L, Hgb 10.3 L, Hct 31.7 L, MCV 96.6, MCH 31.4, MCHC 32.5, RDW Std Deviation 53.6 H, RDW Coeff of Marguerite 15.1 H, Plt Count 212, MPV 9.7, Immature Gran % (Auto) 2.100 H, Neut % (Auto) 66.4, Lymph % (Auto) 18.2 L, [place] % (Auto) 9.0, Eos % (Auto) 3.8, Baso % (Auto) 0.5, Absolute Neuts (auto) 7.4, Absolute Lymphs (auto) 2.02, Nucleated RBC % 0, Sodium 138, Potassium 4.1, Chloride 102, Carbon Dioxide 23.9, Anion Gap 13, BUN 44 H, C reatinine 1.27 H, Estim Creat Clear Calc 29.87 L, Est GFR (MDRD) Non-Af 40 L, B UN/Creatinine Ratio 34.3 H, Glucose 180 H, Calcium 8.3 08/16/25 21:35: POC Glucose 173 H 08/17/25 06:06: POC Glucose 115 H 08/17/25 06:25: Sodium 140, Potassium 4.0, Chloride 105, Carbon Dioxide 24.3, Anion Gap 11, BUN 35 H, Creatinine 1.08, Estim Creat Clear Calc 35.12 L, Est GFR (MDRD) Non-Af 49 L, BUN/Creatinine Ratio 32.5 H, Glucose 124 H, Calcium 8.6, Total Creatine Kinase 46 08/17/25 11:41: POC Glucose 148 H 08/17/25 16:15: POC Glucose 209 H Clinical Impression(s) from Imaging Studies Chest X-Ray 08/14/25 13:12 IMPRESSION: There is cardiomegaly with mild central vascular congestion, similar to the prior. There is no focal infiltrate. There is blunting of the costophrenic angle on the left consistent with a moderate effusion. Reading Location: [facility] Brain CT 08/14/25 13:25 IMPRESSION: 1. No evidence of intracranial hemorrhage or acute ischemia. 2. Changes of chronic microvascular ischemia and volume loss. Reading Location: [id number] Medications at Discharge Home Medications levothyroxine 75 mcg tablet 75 mcg PO DAILY THYROID 05/17/17 lisinopril 5 mg tablet 5 mg PO DAILY blood pressure 08/02/25 Held on 08/18/25. Instructions: Hold for KATELYN sitagliptin phosphate 25 mg tablet (Januvia) 25 mg PO DAILY diabetes 08/02/25 Held on 08/18/25. Instructions: Hold for 5-day furosemide 40 mg tablet 40 mg PO DAILY #0 tabs 08/18/25 insulin lispro 100 unit/mL subcutaneous pen (Humalog KwikPen (U-100) Insulin) See Protocol subcut ACHS #0 mL 08/18/25 menthol 0.44 %-zinc oxide 20.6 % topical ointment (Calmoseptine) 1 applic topical TID #0 grams 08/18/25 potassium chloride 20 mEq tablet,extended release(part/cryst) 40 meq (2 x 20 mEq) PO DAILYCM #0 tabs 08/18/25 Physical Exam Narrative Seen and examined. Patient is awake alert oriented x 3. She is doing well, communicating intact and meaningful. Mental status much improved compared to yesterday. Physical exam General: Alert, Oriented x3, Cooperative HEENT: Atraumatic, PERRLA, EOMI, Normocephalic. Oral: No Gingival or Mucosal Lesions/ Ulcerations Neck: Supple, No JVD, Negative Carotid Bruits Chest wall/Lungs: Air entry diminished in bilateral lung bases L> R. Occasional coarse crepitations Cardiovascular: Regular rate and rhythm, Normal S1,S2, No M/G/R Abdomen: Bowel Sounds Present, Soft, Non Tender, Non-Distended : No dysuria. No renal angle tenderness. No suprapubic tenderness. Extremities: Bilateral lower extremity edema, 2+ legs much dry. Capillary Refill Less than 3 Seconds Skin: Lower legs wound covered with Dimas wrap bandage. Bilateral venous/stasis ulcer. Ulcers dry, margins thickened. Musculoskeletal: No Tenderness to Palpation of Joints or Extremities Neurological: Cranial nerves II-XII grossly intact, DTR 2+/4. No acute focal neurological deficit. Psych/Mental Status: Appropriate affect Weight / BMI Weight Weight: 173 lb 15.115 oz Body Mass Index (BMI) 30.8 ABG / Lab / Microbiology Data 08/18/25 05:38 08/18/25 05:38 Laboratory: Laboratory Results - last 24 hr 08/17/25 16:15: POC Glucose 209 H 08/17/25 23:00: POC Glucose 162 H 08/18/25 05:38: WBC 9.9, RBC 3.29 L, Hgb 10.4 L, Hct 31.4 L, MCV 95.4, MCH 31.6, MCHC 33.1, RDW Std Deviation 52.5 H, RDW Coeff of Marguerite 15.3 H, Plt Count 216, MPV 9.6, Immature Gran % (Auto) 3.500 H, Neut % (Auto) 63.0, Lymph % (Auto) 20.8, [place] % (Auto) 9.3, Eos % (Auto) 2.9, Baso % (Auto) 0.5, Absolute Neuts (auto) 6.3, Absolute Lymphs (auto) 2.06, Nucleated RBC % 0.2, Sodium 139, Potassium 3.5, Chloride 103, Carbon Dioxide 24.5, Anion Gap 12, BUN 30 H, Creatinine 0.96, Estim Creat Clear Calc 39.51 L, Est GFR (MDRD) Non-Af 57 L, BUN/Creatinine Ratio 31.0 H, Glucose 147 H, Calcium 8.4 08/18/25 06:57: POC Glucose 120 H 08/18/25 11:10: POC Glucose 150 H Microbiology: Microbiology 08/14/25 13:49 Urine, Catheterized Urine Culture - Final Yeast, not Cecy albicans D/C Instructions DC O2, CPAP, BIPAP Needs Home O2 Discharge instructions: No Meaningful Use Info Meaningful Use Meaningful Use Diagnoses (Choose all that apply): None applicable Discharge Plan Admission Admit Date/Time: 08/14/25 15:23 Attending Provider: Bhavik Dior Primary Care Provider: Jessa Alberto Consulting Providers: Pepe Cruz; Glen Davis Instructions Additional Instructions / Restrictions: Patient completed 5 days of oral antibiotics Cipro and Flagyl as an outpatient. She has bilateral stasis/venous ulcer does not need further antibiotics. Follow-up in wound clinic. Discharge Orders/Prescriptions Prescriptions: New furosemide 40 mg Tablet 40 mg PO DAILY Qty: 0 0RF Rx Instructions: No similar 40 mg daily for 3 days and then as needed as needed for leg swelling. Patient is prone for KATELYN insulin lispro [Humalog KwikPen Insulin] 100 unit/mL Insulin Pen See Protocol subcut ACHS Qty: 0 0RF Protocol: 4. Sliding Scale Insulin High-Med Dosing Condition: 150-199 mg/dl = 2 units Condition: 200-259 mg/dl = 4 units Condition: 260-324 mg/dl = 6 units Condition: 325-374 mg/dl = 8 units Condition: 375-409 mg/dl = 10 units Condition: 410-449 mg/dl = 11 units Condition: Greater than 449 call physician Protocol Text: Suggested for: - Patients on Total Daily Insulin Dose of 56-80 units - Patient who are known to be insulin resistant or septic HIGH MEDIUM DOSING ALGORITHM potassium chloride 20 mEq Tablet,Er Particles/Crystals 40 meq PO DAILYCM Qty: 0 0RF Rx Instructions: Supplement with Lasix. menthol-zinc oxide [Calmoseptine] 0.44-20.6 % Ointment 1 applic topical TID Qty: 0 0RF Protocol: *Topical Application Instructions APPLICATION INSTRUCTIONS: buttock Continued levothyroxine 75 MCG tablet 75 mcg PO DAILY Held lisinopril 5 mg tablet 5 mg PO DAILY Hold Instructions: Hold for KATELYN Januvia 25 mg tablet 25 mg PO DAILY Hold Instructions: Hold for 5-day Discontinued furosemide 40 mg tablet 40 mg PO BID PRN PRN (Reason: swelling) metronidazole 250 mg tablet 250 mg PO TID ciprofloxacin HCl [Cipro] 500 mg tablet 500 mg PO BID potassium chloride 20 mEq tablet,ER particles/crystals 20 meq PO DAILY Referrals / Follow Up: Jessa Alberto MD [Primary Care Provider, Family Practice] Glen Davis MD [Med Staff - Consulting, Nephrology] - Within 2 Weeks Latrice Loredo NP, CLINICAL TECHNOLOGIST-C [Med Staff - Adv Practice Prof, Family Practice] - Within 1 Week Referral Note: Follow-up in wound clinic Disposition Disposition (needs filled in before D/C Order can be placed): Intermediate Facility Charges/Coding Visit Charges Inpatient E&M: 56051 Disch Hosp >30min
--- NOTE | 2025-08-18 15:57 | NURSING ---
Nurse to nurse report given to Yazmin on TCU.
--- NOTE | 2025-08-18 16:01 | CASEMGMT ---
Social Work Precert has been obtained.? Physician updated and pt is ready for discharge today.? IMANI sent d/c paperwork to TCU. IMANI called [facility] and updated. IMANI also faxed documentation to [facility] [place]. IMANI updated bedside nurse who reports that she will notify son when pt is moved off the floor. Disposition:TCU, skilled level of care GONZALES Lugo
== END 2025-08-18 17:03 | disposition skilled nursing facility (03) | DRG 683 ==
LOC: ED 15:14 → MS3 16:11
PROVIDERS: Admitting Provider Hospitalist; Emergency Provider Emergency Medicine; PCP Family Medicine; Visit Provider Internal Medicine
DX: N17.9 Acute kidney failure, unspecified (principal); L97.929 Non-pressure chronic ulcer of unspecified part of left lower leg with unspecified severity; L97.919 Non-pressure chronic ulcer of unspecified part of right lower leg with unspecified severity; Z66 Do not resuscitate; F03.90 Unspecified dementia, unspecified severity, without behavioral disturbance, psychotic disturbance, mood disturbance, and anxiety; E11.622 Type 2 diabetes mellitus with other skin ulcer; E03.9 Hypothyroidism, unspecified; I10 Essential (primary) hypertension; F32.A Depression, unspecified; E66.811 Obesity, class 1; Z79.4 Long term (current) use of insulin; T50.1X5A Adverse effect of loop [high-ceiling] diuretics, initial encounter; Z86.711 Personal history of pulmonary embolism; Z79.899 Other long term (current) drug therapy; Z68.30 Body mass index [BMI] 30.0-30.9, adult
CPT/HCPCS: 36415; 70450; 71045; 80048; 81001; 82550; 82570; 82962; 83036; 84300; 85025; 85027; 87086; 87088; 93005; 94668; 97162; 97166; 97530; 97535; 97802; 99285; P9612; A4216

== ENCOUNTER 2025-08-18 17:10 | Inpatient (IN) | payer MEDICARE, SELFPAY ==
--- OUTSIDE RECORDS SUMMARY | 2025-08-18 17:35 | XMS RPT_ITS | CCD ---
Author Organization [facility] Care Team Providers Care Hand Knitter Name Role Phone Kilo Sr Unavailable Dr. Jessa Alberto Primary Care Provider Dr. Tonny Hardwick Emergency Provider [phone] Romie Walsh Admit Provider Dr. Romie Walsh Attending Provider Dr. Romie Walsh Other Provider Dr. Jose Andrews Other Provider [phone] Dr. Sara Lorenzo Other Provider Dr. Sara Lorenzo Attending Provider [phone] Otto Nolasco Attending Provider Unavailable Dr. Otto Nolasco Other Provider Unavailable Dr. Dave Huerta Attending Provider [phone] Dr. Sara Lorenzo Referring Provider [phone] Jessa Alberto MD Primary Care Provider [phone] Warren PAPER MILL SUPERVISOR-CEliz Attending Provider Jessa Alberto Referring Unavailable Jessa Alberto Primary Care Unavailable Latrice Loredo Attending Unavailable Eliz Kelley Attending Unavailable Eliz Kelley Referring Unavailable Jessa Alberto Primary Care Unavailable Jessa Alberto Referring Unavailable Jessa Alberto Primary Care Unavailable Jessa Alberto Attending Unavailable Jessa Alberto Primary Care Unavailable Jessa Alberto Attending Unavailable Eliz Kelley Attending Unavailable Dolly, Jessa Primary Care Unavailable Dr. Jessa Alberto MD Primary Care Physician Warren PAPER MILL SUPERVISOR-C, Eliz Attending Physician Dolly KILLIAN, Dr. Germain Attending Physician Dolly KILLIAN, Dr. Germain Referring Provider Facundo PAPER MILL SUPERVISOR-C, Latrice Attending Physician Facundo PAPER MILL SUPERVISOR-C, Latrice Nurse Practitioner Ángel KILLIAN, Dr. Paulino Emergency Department Physici an Anthony MADSEN, Dr. Cantu Admitting Physician Dr. Pepe Cruz DO Nurse Practitioner Ovi KILLIAN, Dr. Gutierres Attending Physician Susan KILLIAN, Dr. Carroll Nurse Practitioner Ritchie PAPER MILL SUPERVISOR-C, Bri Attending Physician Medications Current Medications Medication Drug Class(es) Dates Sig (Normalized) Sig (Original) acetaminophen 325 mg / oxyCODONE hydrochloride 5 mg oral tablet (2 sources) Opioid Agonist Start: 04-28-2024 End: 08-14-2025 Oxycodone-Acetamin ophen 5-325 mg tablet Discontinued 1 {tbl} PO EVERY 6 HOURS NEEDED as needed for Pain 12 3 0 April 28, 2024 August 14, 2025 7:58pm Fracture of superior ramus of right pubis Closed fracture of right inferior pubic ramus Fracture of superior rim of right pubis, initial encounter for closed fracture Other specified fracture of right pubis, initial encounter for closed fracture cefdinir 300 mg oral capsule (1 source) Cephalosporin Antibacterial Start: 08-02-2025 End: 08-09-2025 take 1 capsule by mouth twice daily Cefdinir 300 mg capsule Discontinued 300 mg PO TWICE A DAY August 02, 2025 12:00am August 09, 2025 8:53am nausea ciprofloxacin 500 mg oral tablet (1 source) Quinolone Antimicrobial Start: 08-09-2025 take 1 tablet by mouth twice daily Ciprofloxacin Hcl (Cipro) 500 mg tablet Active 500 mg PO TWICE A DAY August 09, 2025 12:00am antibiotic Complies with drug therapy Start: 08-09-2025 take 1 tablet by johnson th twice daily Ciprofloxacin Hcl (Cipro) 500 mg tablet Active 500 mg PO TWICE A DAY August 09, 2025 12:00am antibiotic Complies with drug therapy doxycycline monohydrate 100 mg oral tablet (1 source) Tetracycline-class Drug Start: 08-02-2025 End: 08-09-2025 take 1 tablet by mouth twice daily Doxycycline Monohydrate 100 mg tablet Discontinued 100 mg PO TWICE A DAY August 02, 2025 12:00am August 09, 2025 8:53am furosemide 40 mg oral tablet (1 source) Loop Diuretic Start: 08-02-2025 take 1 tablet by mouth twice daily as needed Furosemide 40 mg tablet Active 40 mg PO TWICE DAILY NEEDED as needed for swelling August 02, 2025 12:00am On Hold: kidney injury Complies with drug therapy levothyroxine sodium 0.075 mg oral tablet (9 sources) l-Thyroxine Start: 05-17-2017 take 1 tablet by mouth once daily Levothyroxine 75 MCG tablet Active 75 ug PO DAILY May 17, 2017 12:00am THYROID Complies with drug therapy take 1 tablet by mouth once joey y LEVOTHYROXINE SODIUM 75 MCG TABS One tablet by mouth daily LEVOTHYROXINE SODIUM [id number] Adelaide GAINES take 1 tablet by mouth once joey y LEVOTHROID 100 MCG TABS One tablet by mouth daily LEVOTHYROXINE SODIUM [id number] Esther Chen LPN lisinopril 5 mg oral tablet (9 sources) Angiotensin Converting Enzyme Inhibitor Start: 08-02-2025 take 1 tablet by mouth once daily Lisinopril 5 mg tablet Active 5 mg PO DAILY August 02, 2025 12:00am blood pressure Complies with drug therapy Start: 10-19-2021 End: 04-28-2024 take 1 tablet by mouth once daily Lisinopril 20 mg tablet Discontinued 20 mg PO DAILY February 17, 2023 9:19pm April 28, 2024 10:57am Check with primary doctor metOLazone 2.5 mg oral tablet (1 source) Thiazide-like Diuretic Start: 08-02-2025 End: 08-14-2025 take 1 tablet by mouth once daily Metolazone 2.5 mg tablet Discontinued 2.5 mg PO DAILY August 02, 2025 12:00am August 14, 2025 7:57pm metroNIDAZOLE 250 mg oral tablet (1 source) Nitroimidazole Antimicrobial Start: 08-09-2025 take 1 tablet by mouth three times daily Metronidazole 250 mg tablet Active 250 mg PO THREE TIMES A DAY August 09, 2025 12:00am antibiotic Complies with drug therapy Start: 08-09-2025 take 1 tablet by johnson th three times daily Metronidazole 250 mg tablet Active 250 mg PO THREE TIMES A DAY August 09, 2025 12:00am antibiotic Complies with drug therapy microencapsulated potassium chloride 20 meq extended release oral tablet (1 source) Start: 08-14-2025 take 1 tablet by mouth once daily Potassium Chloride 20 mEq tablet,ER particles/crystals Active 20 meq PO DAILY August 14, 2025 12:00am supplement Complies with drug therapy Start: 08-14-2025 take 1 tablet by johnson th once daily Potassium Chloride 20 mEq tablet,ER particles/crystals Active 20 meq PO DAILY August 14, 2025 12:00am supplement Complies with drug therapy silver sulfADIAZINE 10 mg/ml topical cream (1 source) Sulfonamide Antibacterial Start: 08-02-2025 End: 08-14-2025 Silver Sulfadiazine 1 % cream Discontinued NMA TOPICAL August 02, 2025 12:00am August 14, 2025 7:59pm SITagliptin 25 mg oral tablet (1 source) Dipeptidyl Peptidase 4 Inhibitor Start: 08-02-2025 take 1 tablet by mouth once daily Sitagliptin Phosphate (Januvia) 25 mg tablet Active 25 mg PO DAILY August 02, 2025 12:00am diabetes Complies with drug therapy Completed/Discontinued Medications Medication Drug Class(es) Dates Sig (Normalized) Sig (Original) acetaminophen 500 mg oral tablet (10 sources) Start: 02-27-2023 End: 04-28-2024 take 2 tablets by mouth three times daily Acetaminophen 500 mg Tablet Discontinued 1000 mg PO THREE TIMES A DAY 0 0 February 27, 2023 12:00am April 28, 2024 10:57am Start: 02-27-2023 take 1000 mg by mout h three times daily Acetaminophen Active 1000 MG PO THREE TIMES A DAY 0 February 27, 2023 12:00am Start: 02-17-2023 End: 04-28-2024 take 2 tablets by mouth every six hours Acetaminophen 500 mg tablet Discontinued 1000 mg PO EVERY 6 HOURS February 17, 2023 9:19pm April 28, 2024 10:57am Pain Start: 02-17-2023 End: 02-17-2023 take 1000 mg by mouth every six hours Acetaminophen Active 1000 MG PO EVERY 6 HOURS February 17, 2023 9:19pm amLODIPine 5 mg oral tablet (10 sources) Dihydropyridine Calcium Channel Kendra Start: 02-17-2023 End: 04-28-2024 take 1 tablet by mouth once daily Amlodipine 5 mg Tablet Discontinued 5 mg PO DAILY 30 30 0 February 27, 2023 12:00am April 28, 2024 10:57am apixaban 5 mg oral tablet (10 sources) Factor Xa Inhibitor Start: 10-19-2021 End: 10-26-2021 take 2 tablets by mouth twice daily Apixaban (Eliquis) 5 mg Tablet Discontinued 10 mg PO TWICE A DAY 12 0 October 19, 2021 1:00am October 25, 2021 1:00am October 26, 2021 1:01am Start: 10-19-2021 End: 02-17-2023 take 1 tablet by mouth twice daily Apixaban (Eliquis) 5 mg Tablet Discontinued 5 mg PO TWICE A DAY 60 2 October 19, 2021 1:00am February 17, 2023 9:05am Start on 10/26/2021 atenolol 25 mg oral tablet (7 sources) beta-Adrenergic Kendra Start: 05-17-2017 End: 10-19-2021 take 1 tablet by mouth once daily Atenolol (Tenormin) 25 MG tablet Discontinued 12.5 mg PO DAILY May 17, 2017 12:00am October 19, 2021 2:19pm BLOOD PRESSURE PT STATES SHE OFTEN DOES NOT TAKE take 1 tablet by mouth once joey y ATENOLOL 25 MG TABS One tablet by mouth daily ATENOLOL [id number] Adelaide GAINES baclofen 10 mg oral tablet (2 sources) gamma-Aminobutyric Acid-ergic Agonist Start: 05-04-2017 BACLOFEN 10 MG TABS 1 tablet 3 taimes a day as needed BACLOFEN [id number] Kilo GAINES calcium carbonate 500 mg chewable tablet (10 sources) Start: 02-17-2023 End: 04-28-2024 take 1 tablet by mouth three times daily at mealtime Calcium Carbonate 200 mg calcium (500 mg) Tablet,Chewable Discontinued 500 mg PO 3 TIMES DAILY WITH MEALS 0 0 February 27, 2023 12:00am April 28, 2024 10:57am cyclobenzaprine hydrochloride 10 mg oral tablet (2 sources) Muscle Relaxant Start: 05-04-2017 CYCLOBENZAPRINE HCL 10 MG TABS 1 tablet 3 times a day as needed CYCLOBENZAPRINE HCL [id number] Kilo GAINES dexamethasone 6 mg oral tablet (5 sources) Corticosteroid Start: 10-19-2021 End: 02-17-2023 take 1 tablet by mouth once daily Dexamethasone (Decadron) 6 mg tablet Discontinued 6 mg PO DAILY 2 0 October 19, 2021 1:00am February 17, 2023 9:05am docusate sodium 50 mg / sennosides, skilled nursing 8.6 mg oral tablet (10 sources) Start: 02-17-2023 End: 04-28-2024 Sennosides-Docusat e Sodium (Stool Softener-Stimulant Laxat) 8.6-50 mg Tablet Discontinued 2 {tbl} PO TWICE A DAY 120 30 0 February 27, 2023 12:00am April 28, 2024 10:57am 0.4 ml enoxaparin sodium 100 mg/ml prefilled syringe (7 sources) Low Molecular Weight Heparin Start: 02-17-2023 End: 02-27-2023 Enoxaparin 40 mg/0.4 mL syringe Discontinued 40 mg SC DAILY@0600 February 17, 2023 9:19pm February 27, 2023 2:05pm Anticoagulant LORazepam 0.5 mg oral tablet (4 sources) Benzodiazepine End: 05-04-2017 take 1 tablet by mouth twice daily LORAZEPAM 0.5 MG TABS One tablet by mouth twice daily LORAZEPAM [id number] Esther Chen LPN melatonin 3 mg oral tablet (4 sources) Start: 02-17-2023 End: 04-28-2024 take 1 tablet by mouth at bedtime as needed Melatonin 3 mg Tablet Discontinued 3 mg PO AT BEDTIME NEEDED as needed for Insomnia 0 0 February 17, 2023 12:00am April 28, 2024 10:57am naproxen 500 mg oral tablet (2 sources) Nonsteroidal Anti-inflammatory Drug Start: 05-04-2017 NAPROXEN 500 MG TABS 1 tablet twice daily NAPROXEN [id number] Kilo GAINES oxyCODONE hydrochloride 5 mg oral tablet (7 sources) Opioid Agonist Start: 02-17-2023 End: 04-28-2024 take 1 tablet by mouth every four hours as needed for pain Oxycodone 5 mg Tablet Discontinued 5 mg PO EVERY 4 HOURS NEEDED as needed for Pain Score 6-10 30 7 0 February 27, 2023 April 28, 2024 10:57am Closed fracture of left hip Problems Active Problems Problem Classification Problem Date Documented Date Episodic/Chronic Acute and unspecified renal failure (2 sources) Acute renal failure syndrome; Translations: [Acute kidney failure, unspecified] 08-14-2025 Episodic Chronic ulcer of skin (7 sources) Non-pressure chronic ulcer of unspecified part of unspecified lower leg with unspecified severity; Translations: [Non-pressure chronic ulcer of skin of other sites with fat layer exposed] Onset: 08-04-2025 08-02-2025 Chronic Delirium, dementia, and amnestic and other cognitive disorders (2 sources) Dementia; Translations: [Unspecified dementia without behavioral disturbance] 08-02-2025 Chronic Diabetes mellitus without complication (1 source) Type 2 diabetes mellitus without complications; Translations: [Type 2 diabetes mellitus without complications] Onset: 08-04-2025 Chronic E Codes: Fall (2 sources) Fall; Translations: [Unspecified fall, initial encounter] 05-06-2024 Episodic Essential hypertension (14 sources) Hypertensive disorder; Translations: [Essential (primary) hypertension] Onset: 08-09-2025 10-31-2010 Chronic Fluid and electrolyte disorders (5 sources) Acute hypokalemia; Translations: [Hypokalemia] 10-27-2021 Episodic Fracture of neck of femur (hip) (10 sources) Closed intertrochanteric fracture; Translations: [Displaced intertrochanteric fracture of left femur, initial encounter for closed fracture] 02-12-2023 Episodic Malaise and fatigue (6 sources) Asthenia; Translations: [Other malaise] Onset: 08-09-2025 02-17-2023 Episodic Osteoarthritis (2 sources) Polyosteoarthritis, unspecified; Translations: [Polyosteoarthritis, unspecified] 10-31-2010 Chronic Other circulatory disease (1 source) Other disorder of circulatory system; Translations: [Other disorder of circulatory system] Onset: 08-09-2025 Episodic Other fractures (2 sources) Fracture of inferior pubic ramus; Translations: [Other specified fracture of right pubis, initial encounter for closed fracture] 05-06-2024 Episodic Other fractures (2 sources) Fracture of superior pubic ramus; Translations: [Fracture of superior rim of right pubis, initial encounter for closed fracture] 05-06-2024 Episodic Other infections; including parasitic (4 sources) Personal history of other infectious and parasitic diseases; Translations: [History of COVID-19] 02-17-2023 Episodic Pulmonary heart disease (4 sources) H/O: pulmonary embolus; Translations: [Personal history of pulmonary embolism] 02-17-2023 Episodic Residual codes; unclassified (1 source) Localized edema; Translations: [Localized edema] Onset: 08-09-2025 Episodic Residual codes; unclassified (2 sources) Bilateral lower leg edema; Translations: [Localized edema] 08-02-2025 Episodic Spondylosis; intervertebral disc disorders; other back problems (7 sources) Sciatica; Translations: [Low back pain] Onset: 05-04-2017 05-04-2017 Episodic Thyroid disorders (10 sources) Hypothyroidism; Translations: [Hypothyroidism, unspecified] Onset: 04-21-2025 10-31-2010 Chronic Unclassified (1 source) Vascular dementia, moderate, with anxiety; Translations: [Vascular dementia, moderate, with anxiety] Onset: 08-09-2025 Past or Other Problems Problem Classification Problem Date Documented Da te Episodic/Chronic Sprains and strains (2 sources) Strain of muscle, fascia and tendon of right hip, initial encounter; Translations: [Strain of muscle, fascia and tendon of right hip, initial encounter] Onset: 05-04-2017 05-04-2017 Episodic Superficial injury; contusion (2 sources) Contusion of lower back and pelvis, initial encounter; Translations: [Contusion of lower back and pelvis, initial encounter] Onset: 05-04-2017 05-04-2017 Episodic Results Test Name Value Interpretation Reference Range Facility Anion gap in Serum or Plasma Ordered By: Pepe Cruz on 08-15-2025 Anion gap [Moles/Vol] 12 mmol/L 5-15 [facility] BUN/creatinine ratioOrdered By: Pepe Cruz on 08-15-2025 Urea nitrogen/Creatinine [Mass ratio] 38.2 mg/mg High 10-20 [facility] Carbon dioxide, total [Moles /volume] in Central venous bloodOrdered By: Pepe Cruz on 08-15-2025 CO2 [Moles/Vol] 22.3 mmol/L 21.0-32.0 [facility] Chloride assayOrdered By: Ronal Cruz on 08-15-2025 Chloride [Moles/Vol] 109 mmol/L High 98-108 [facility] Erythrocyte distribution wid th ratioOrdered By: Pepe Cruz on 08-15-2025 Erythrocyte distribution width (RBC) [Ratio] 15.4 % High 11.6-14.6 [facility] Erythrocyte distribution wid th standard deviationOrdered By: Pepe Cruz on 08-15-2025 Erythrocyte distribution width (RBC) [Ratio] 53.4 fl High 35.1-43.9 [facility] Glomerular filtration rate ( GFR) estimation/1.73 sq m using serum, plasma, or whole bOrdered By: Pepe Cruz on 08-15-2025 GFR/1.73 sq M.predicted among non-blacks MDRD (S/P/Bld) [Vol rate/Area] 23 mL/min/{1.73_m2} Low >60 [facility] Comment on above: mL/min/1.73m2 CKD-EP I Creatinine Equation (2020) [facility] de[facility]dered By: Pepe Cruz on 08-15-2025 Glucose [Mass/Vol] 127 mg/dL High 74-106 [facility] Comment on above: MANAGEMENT OF PATIEN T CARE PER NURSING PROTOCOL Hematocrit Auto (Bld) [Volum e fraction]Ordered By: Pepe Cruz on 08-15-2025 Hematocrit (Bld) [Volume fraction] 32.6 % Low 37-47 [facility] Hemoglobin measurementOrdere d By: Pepe Cruz on 08-15-2025 Hemoglobin (Bld) [Mass/Vol] 10.6 g/dL Low 12.0-15.0 [facility] MCV (mean corpuscular volume ) determinationOrdered By: Pepe Cruz on 08-15-2025 MCV (RBC) [Entitic vol] 96.2 fL 81-99 [facility] Mean corpuscular hemoglobin (MCH) determinationOrdered By: Pepe Cruz on 08-15-2025 MCH (RBC) [Entitic mass] 31.3 pg 27.0-32.0 [facility] Mean corpuscular hemoglobin concentration (MCHC) determinationOrdered By: Pepe Cruz on 08-15-2025 MCHC (RBC) [Mass/Vol] 32.5 g/dL 32-36 [facility] Mean platelet volume determi nationOrdered By: Pepe Cruz on 08-15-2025 Platelet mean volume (Bld) [Entitic vol] 10.4 fL 6.2-12.0 [facility] Platelet countOrdered By: Ronal Cruz on 08-15-2025 Platelets (Bld) [#/Vol] 189 10*3/uL 150-450 [facility] Potassium measurement (mass/ volume)Ordered By: Pepe Cruz on 08-15-2025 Potassium (Unsp spec) [Mass/Vol] 3.9 mmol/L 3.3-5.1 [facility] RBC Auto (Bld) [#/Vol]Ordere d By: Pepe Cruz on 08-15-2025 RBC (Bld) [#/Vol] 3.39 10*6/uL Low 4.2-5.4 [facility] Serum creatinine measurement (mass/volume)Ordered By: Pepe Cruz on 08-15-2025 Creatinine [Mass/Vol] 2.04 mg/dL High 0.70-1.20 [facility] Serum glucose measurement (m ass/volume)Ordered By: Pepe Cruz on 08-15-2025 Glucose [Mass/Vol] 113 mg/dL High 70-99 [facility] Serum or plasma calcium emilio urement (mass/volume)Ordered By: Pepe Cruz on 08-15-2025 Calcium [Mass/Vol] 7.8 mg/dL 7.6-11.0 [facility] Serum or plasma creatine kin ase activityOrdered By: Bri Dugan on 08-15-2025 CK [Catalytic activity/Vol] 54 U/L 24-195 [facility] Serum or plasma urea nitroge n measurement (mass/volume)Ordered By: Pepe Cruz on 08-15-2025 Urea nitrogen [Mass/Vol] 78 mg/dL High 4-19 [facility] Sodium levelOrdered By: Dagoberto Cruz on 08-15-2025 Sodium [Moles/Vol] 143 mmol/L 133-145 [facility] White blood cell (WBC) count Ordered By: Pepe Cruz on 08-15-2025 WBC (Bld) [#/Vol] 9.6 10*3/uL 4.4-11.0 [facility] Absolute lymphocyte countOrd ered By: Jefferson Neal on 08-14-2025 Lymphocytes Auto (Unsp spec) [#/Vol] 1.78 10*3/uL 0.83-4.51 [facility] Absolute neutrophil countOrd ered By: Jefferson Neal on 08-14-2025 Neutrophils (Bld) [#/Vol] 8.0 10*3/uL High 2.0-7.7 [facility] Automated lymphocyte count a s percentage of total leukocytesOrdered By: Jefferson Neal on 08-14-2025 Lymphocytes/100 WBC Auto (Unsp spec) 15.2 % Low 19-41 [facility] Basophil percentageOrdered B y: Jefferson Neal on 08-14-2025 Basophils/100 WBC (Bld) 0.6 % 0-1 [facility] Bilirubin Test strip Ql (U)O rdered By: Jefferson Neal on 08-14-2025 Bilirubin Ql (U) Negative Negative [facility] Eosinophil percentageOrdered By: Jefferson Neal on 08-14-2025 Eosinophils/100 WBC (Bld) 3.6 % 0-5 [facility] Hemoglobin A1c percentageOrd ered By: Pepe Cruz on 08-14-2025 HbA1c (Bld) [Mass fraction] 8.1 % High <5.7 [facility] Comment on above: Normal < 5.7 % Predi abetic 5.7 - 6.4 % Diabetic >or= 6.5 % Please note range changes. Immature granulocytes/100 WB C Auto (Bld)Ordered By: Jefferson Neal on 08-14-2025 Immature granulocytes/100 WBC (Bld) 2.000 % High 0.0-0.9 [facility] Comment on above: IG% - Immature Granu locytes (promyelocytes, myelocytes and metamyelocytes) > 1% indicates that a LEFT SHIFT is Present. Ketones Test strip Ql (U)Ord ered By: Jefferson Neal on 08-14-2025 Ketones Ql (U) Negative Negative [facility] Microscopic analysis of urin e for red blood cells (RBC)Ordered By: Jefferson Neal on 08-14-2025 Microscopic analysis of urine for red blood cells (RBC) 0 SEEN /hpf 0-5 [facility] Monocyte percentageOrdered B y: Jefferson Neal on 08-14-2025 Monocytes/100 WBC (Bld) 10.2 % High 0-10 [facility] Mucus LM Ql (Urine sed)Order ed By: Jefferson Neal on 08-14-2025 Mucus Ql (Urine sed) 0 SEEN /hpf [facility] Neutrophil percentageOrdered By: Jefferson Neal on 08-14-2025 Neutrophils/100 WBC (Bld) 68.4 % 47-70 [facility] Nitrite Test strip Ql (U)Ord ered By: Jefferson Neal on 08-14-2025 Nitrite Ql (U) Negative Negative [facility] Nucleated red blood cell per centageOrdered By: Jefferson Neal on 08-14-2025 Nucleated RBC/100 WBC (Bld) [Ratio] 0 % 0-5 [facility] Protein Test strip Ql (U)Ord ered By: Jefferson Neal on 08-14-2025 Protein Ql (U) 30 mg/dl High Negative [facility] Squamous epithelial cells de tection in urine sediment by light microscopyOrdered By: Jefferson Neal on 08-14-2025 Epithelial cells.squamous LM Ql (Urine sed) 0 SEEN /hpf 5-10 [facility] Urine clarityOrdered By: Cameron Neal on 08-14-2025 Clarity (U) Cloudy Clear [facility] Urine color determinationOrd ered By: Jefferson Neal on 08-14-2025 Color (U) Yellow Yellow [facility] Urine creatinine measurement (mass/volume)Ordered By: Pepe Cruz on 08-14-2025 Creatinine (U) [Mass/Vol] 65.10 mg/dL 28.00-217.00 [facility] Urine glucose detectionOrder ed By: Jefferson Neal on 08-14-2025 Glucose Ql (U) Normal mg/dl Normal [facility] Urine leukocyte esterase det ection by dipstickOrdered By: Jefferson Neal on 08-14-2025 Leukocyte esterase Test strip Ql (U) 500 /ul High Negative [facility] Urine pHOrdered By: Jefferson banegas on 08-14-2025 pH (U) 5.0 [pH] 5.0 - 8.0 [facility] Urine sediment bacteria coun t by microscopy (number/high power field)Ordered By: Jefferson Neal on 08-14-2025 Bacteria LM.HPF (Urine sed) [#/Area] 0 /[HPF] None Seen [facility] Urine sodium measurement (mo les/volume)Ordered By: Pepe Cruz on 08-14-2025 Sodium (U) [Moles/Vol] 36 mmol/L Not Establ. [facility] Urine specific gravity measu rementOrdered By: Jefferson Neal on 08-14-2025 Specific gravity (U) [Rel density] 1.015 1.002-1.030 [facility] Urine urobilinogen measureme ntOrdered By: Jefferson Neal on 08-14-2025 Urobilinogen Ql (U) Normal mg/dl Normal [facility] White blood cell countOrdere d By: Jefferson Neal on 08-14-2025 White blood cell count >100 SEEN /hpf 0-5 [facility] CBC W Auto Differential pane l (Bld)on 08-08-2025 Basophils (Bld) [#/Vol] 0.05 10*3/uL Normal <0.11 [facility] Comment on above: Order Comment: Speci men Type: BLOOD SPECIMEN Ordering Facility: [facility] Address: [address] [place] [address] Performed By: #### [id number] 7021-8 #### [facility] CLIA [id number] [address] [place] [address] [place] Basophils/100 WBC (Bld) 0.4 % Normal [facility] Comment on above: Order Comment: Speci men Type: BLOOD SPECIMEN Ordering Facility: [facility] Address: [address] [place] [address] Performed By: #### 5 7021-8 #### [facility] CLIA [id number] [address] [id number] [place] Differential cell count method Nom (Bld) Auto Normal [facility] Comment on above: Order Comment: Speci men Type: BLOOD SPECIMEN Ordering Facility: [facility] Address: [address] [place] [address] Performed By: #### 5 7021-8 #### [facility] CLIA [id number] [address] [place], [place] [id number] [place] Eosinophils (Bld) [#/Vol] 0.07 10*3/uL Normal <0.46 [facility] Comment on above: Order Comment: Speci men Type: BLOOD SPECIMEN Ordering Facility: [facility] Address: [address] [place] [address] Performed By: #### 5 7021-8 #### [facility] CLIA [id number] [address] [place] [address] [place] Eosinophils/100 WBC (Bld) 0.6 % Normal [facility] Comment on above: Order Comment: Speci men Type: BLOOD SPECIMEN Ordering Facility: [facility] Address: [address] [place] [address] Performed By: #### 5 7021-8 #### [facility] CLIA [id number] [address] [place], [place] [address] [place] Erythrocyte distribution width (RBC) [Ratio] 15.1 % High 11.5-15.0 [facility] Comment on above: Order Comment: Speci men Type: BLOOD SPECIMEN Ordering Facility: [facility] Address: [address] [place] [address] Performed By: #### 5 7021-8 #### [facility] CLIA [id number] [address] [place] [address] [place] Hematocrit (Bld) [Volume fraction] 40.2 % Normal 36.0-46.0 [facility] Comment on above: Order Comment: Speci men Type: BLOOD SPECIMEN Ordering Facility: [facility] Address: [address] [place] [address] Performed By: #### 5 7021-8 #### [facility] CLIA [id number] [address] [place] [address] [place] Hemoglobin (Bld) [Mass/Vol] 13.0 g/dL Normal 11.5-15.5 [facility] Comment on above: Order Comment: Speci men Type: BLOOD SPECIMEN Ordering Facility: [facility] Address: [address] [place] [address] Performed By: #### 5 7021-8 #### [facility] CLIA [id number] [address] [place] [address] [place] Immature granulocytes (Bld) [#/Vol] 0.12 10*3/uL High <0.10 [facility] Comment on above: Order Comment: Speci men Type: BLOOD SPECIMEN Ordering Facility: [facility] Address: [address] [place] [address] Performed By: #### 5 7021-8 #### [facility] CLIA [id number] [address] [place] [address] [place] Immature granulocytes/100 WBC (Bld) 1.1 % Normal [facility] Comment on above: Order Comment: Speci men Type: BLOOD SPECIMEN Ordering Facility: [facility] Address: [address] [place] [address] Performed By: #### 5 7021-8 #### [facility] CLIA [id number] [address] [place] [address] [place] Lymphocytes (Bld) [#/Vol] 2.00 10*3/uL Normal 1.00-4.00 [facility] Comment on above: Order Comment: Speci men Type: BLOOD SPECIMEN Ordering Facility: [facility] Address: [address] [place] [address] Performed By: #### 5 7021-8 #### [facility] CLIA [id number] [address] [place] [address] [place] Lymphocytes/100 WBC (Bld) 17.8 % Normal [facility] Comment on above: Order Comment: Speci men Type: BLOOD SPECIMEN Ordering Facility: [facility] Address: [address] [place] [address] Performed By: #### 5 7021-8 #### [facility] CLIA [id number] [address] [place] [address] [place] MCH (RBC) [Entitic mass] 31.4 pg Normal 26.0-34.0 [facility] Comment on above: Order Comment: Speci men Type: BLOOD SPECIMEN Ordering Facility: [facility] Address: [address] [place] [address] Performed By: #### 5 7021-8 #### [facility] CLIA [id number] [address] [place] [address] [place] MCHC (RBC) [Mass/Vol] 32.3 g/dL Normal 30.5-36.0 [facility] Comment on above: Order Comment: Speci men Type: BLOOD SPECIMEN Ordering Facility: [facility] Address: [address] [place] [address] Performed By: #### 5 7021-8 #### [facility] CLIA [id number] [address] [place] [address] [place] MCV (RBC) [Entitic vol] 97.1 fL Normal 80.0-100.0 [facility] Comment on above: Order Comment: Speci men Type: BLOOD SPECIMEN Ordering Facility: [facility] Address: [address] [place] [address] Performed By: #### 5 7021-8 #### [facility] CLIA [id number] [address] [address] [place] Monocytes (Bld) [#/Vol] 0.72 10*3/uL Normal <0.87 [facility] Comment on above: Order Comment: Speci men Type: BLOOD SPECIMEN Ordering Facility: [facility] Address: [address] [place] [address] Performed By: #### 5 7021-8 #### [facility] CLIA [id number] [address] [place] [address] [place] Monocytes/100 WBC (Bld) 6.4 % Normal [facility] Comment on above: Order Comment: Speci men Type: BLOOD SPECIMEN Ordering Facility: [facility] Address: [address] [place] [address] Performed By: #### 5 7021-8 #### [facility] CLIA [id number] [address] [place] [address] [place] Neutrophils (Bld) [#/Vol] 8.28 10*3/uL High 1.45-7.50 [facility] Comment on above: Order Comment: Speci men Type: BLOOD SPECIMEN Ordering Facility: [facility] Address: [address] [place] [address] Performed By: #### 5 7021-8 #### [facility] CLIA [id number] [address] [place] [address] [place] Neutrophils/100 WBC (Bld) 73.7 % Normal [facility] Comment on above: Order Comment: Speci men Type: BLOOD SPECIMEN Ordering Facility: [facility] Address: [address] [place] [address] Performed By: #### 5 7021-8 #### [facility] CLIA [id number] [address] [place], [place] [address] [place] Nucleated RBC (Bld) [#/Vol] 10*3/uL Normal <0.01 [facility] Comment on above: Order Comment: Speci men Type: BLOOD SPECIMEN Ordering Facility: [facility] Address: [address] [place] [address] Performed By: #### 5 7021-8 #### [facility] CLIA [id number] [address] [place] [address] [place] Nucleated RBC/100 WBC (Bld) [Ratio] 0.0 /100 WBC Normal [facility] Comment on above: Order Comment: Speci men Type: BLOOD SPECIMEN Ordering Facility: [facility] Address: [address] [place] [address] Performed By: #### 5 7021-8 #### [facility] CLIA [id number] [address] [place] [address] [place] Platelet mean volume (Bld) [Entitic vol] 10.6 fL Normal 9.0-12.7 [facility] Comment on above: Order Comment: Speci men Type: BLOOD SPECIMEN Ordering Facility: [facility] Address: [address] [place] [address] Performed By: #### 5 7021-8 #### [facility] CLIA [id number] [address] [place] [address] [place] Platelets (Bld) [#/Vol] 265 10*3/uL Normal 150-400 [facility] Comment on above: Order Comment: Speci men Type: BLOOD SPECIMEN Ordering Facility: [facility] Address: [address] [place] [address] Performed By: #### 5 7021-8 #### [facility] CLIA [id number] [address] [place] [address] [place] RBC (Bld) [#/Vol] 4.14 10*6/uL Normal 3.90-5.20 [facility] Comment on above: Order Comment: Speci men Type: BLOOD SPECIMEN Ordering Facility: [facility] Address: [address] [place] [address] Performed By: #### 5 7021-8 #### [facility] CLIA [id number] [address] [place] [address] [place] WBC (Bld) [#/Vol] 11.24 10*3/uL High 3.70-11.00 [facility] Comment on above: Order Comment: Speci men Type: BLOOD SPECIMEN Ordering Facility: [facility] Address: [address] [place] [address] Performed By: #### 5 7021-8 #### [facility] CLIA [id number] [address] [place] [address] [place] Comprehensive metabolic 2000 panelon 08-08-2025 Albumin [Mass/Vol] 3.8 g/dL Low 3.9-4.9 [facility] Comment on above: Order Comment: Speci men Type: BLOOD SPECIMEN Ordering Facility: [facility] Address: [address] [place] [address] Performed By: #### 2 4323-8 #### [facility] CLIA [id number] [address] [place] [address] [place] ALP [Catalytic activity/Vol] 80 U/L Normal 34-123 [facility] Comment on above: Order Comment: Speci men Type: BLOOD SPECIMEN Ordering Facility: [facility] Address: [address] [place] [address] Performed By: #### 2 4323-8 #### [facility] CLIA [id number] [address] [place] [id number] [place] ALT [Catalytic activity/Vol] 22 U/L Normal 7-38 [facility] Comment on above: Order Comment: Speci men Type: BLOOD SPECIMEN Ordering Facility: [facility] Address: [address] [place] [address] Performed By: #### 2 4323-8 #### [facility] CLIA [id number] [address] [place] [id number] [place] Anion gap [Moles/Vol] 18 mmol/L High 8-15 [facility] Comment on above: Order Comment: Speci men Type: BLOOD SPECIMEN Ordering Facility: [facility] Address: [address] [place] [address] Performed By: #### 2 4323-8 #### [facility] CLIA [id number] [address] [place] [id number] [place] AST [Catalytic activity/Vol] 23 U/L Normal 13-35 [facility] Comment on above: Order Comment: Speci men Type: BLOOD SPECIMEN Ordering Facility: [facility] Address: [address] [place] [address] Performed By: #### 2 4323-8 #### [facility] CLIA [id number] [address] [place] [address] [place] Bilirubin [Mass/Vol] 0.4 mg/dL Normal 0.2-1.3 [facility] Comment on above: Order Comment: Speci men Type: BLOOD SPECIMEN Ordering Facility: [facility] Address: [address] [place] [address] Performed By: #### 2 4323-8 #### [facility] CLIA [id number] [address] [place] [id number] [place] Calcium [Mass/Vol] 8.8 mg/dL Normal 8.5-10.2 [facility] Comment on above: Order Comment: Speci men Type: BLOOD SPECIMEN Ordering Facility: [facility] Address: [address] [place] [address] Performed By: #### 2 4323-8 #### [facility] CLIA [id number] [address] [place] [id number] [place] Chloride [Moles/Vol] 91 mmol/L Low 98-107 [facility] Comment on above: Order Comment: Speci men Type: BLOOD SPECIMEN Ordering Facility: [facility] Address: [address] [place] [address] Performed By: #### 2 4323-8 #### [facility] CLIA [id number] [address] [place] [id number] [place] CO2 [Moles/Vol] 25 mmol/L Normal 22-30 [facility] Comment on above: Order Comment: Speci men Type: BLOOD SPECIMEN Ordering Facility: [facility] Address: [address] [place] [address] Performed By: #### 2 4323-8 #### [facility] CLIA [id number] [address] [place] [address] [place] Creatinine [Mass/Vol] 2.53 mg/dL High 0.58-0.96 [facility] Comment on above: Order Comment: Speci men Type: BLOOD SPECIMEN Ordering Facility: [facility] Address: [address] [place] [address] Performed By: #### 2 4323-8 #### [facility] CLIA [id number] [address] [place] [address] [place] eGFRcr SerPlBld CKD-EPI 2020 18 mL/min/1.73m??? Low >=60 [facility] Comment on above: Order Comment: Speci men Type: BLOOD SPECIMEN Ordering Facility: [facility] Address: [address] [place] [address] Result Comment: Sailaja mated Glomerular Filtration Rate (eGFR) is calculated using the 2020 CKD-EPI creatinine equation. This equation utilizes serum creatinine, sex, and age as parameters. The creatinine assay has traceable calibration to isotope dilution-mass spectrometry. Refer to KDIGO guidelines for clinical interpretation. In patients with unstable renal function, e.g. those with acute kidney injury, the eGFR may not accurately reflect actual GFR. Performed By: #### 2 4323-8 #### [facility] CLIA [id number] [address] [place], [place] [address] [place] Glucose [Mass/Vol] 205 mg/dL High 74-99 [facility] Comment on above: Order Comment: John saavedra Type: BLOOD SPECIMEN Ordering Facility: [facility] Address: [address] [place] [address] Result Comment: The [place] [employer] (ADA) provides guidance for cutoff [...] Standards of Medical Care in Diabetes 2016, [place] [employer]. Diabetes Care. 2016.39(Suppl 1). Performed By: #### 2 4323-8 #### [facility] CLIA [id number] [address] [place] [address] [place] Potassium [Moles/Vol] 4.7 mmol/L Normal 3.7-5.1 [facility] Comment on above: Order Comment: John saavedra Type: BLOOD SPECIMEN Ordering Facility: [facility] Address: [address] [place] [address] Performed By: #### 2 4323-8 #### [facility] CLIA [id number] [address] [address] [place] Protein [Mass/Vol] 6.7 g/dL Normal 6.3-8.0 [facility] Comment on above: Order Comment: John saavedra Type: BLOOD SPECIMEN Ordering Facility: [facility] Address: [address] [place] [address] Performed By: #### 2 4323-8 #### [facility] CLIA [id number] [address] [place] [id number] [place] Sodium [Moles/Vol] 134 mmol/L Low 136-144 [facility] Comment on above: Order Comment: Speci men Type: BLOOD SPECIMEN Ordering Facility: [facility] Address: [address] [place] [address] Performed By: #### 2 4323-8 #### [facility] CLIA [id number] [address] [place] [address] [place] Urea nitrogen [Mass/Vol] 101 mg/dL High 7-21 [facility] Comment on above: Order Comment: Speci men Type: BLOOD SPECIMEN Ordering Facility: [facility] Address: [address] [place] [address] Performed By: #### 2 4323-8 #### [facility] CLIA [id number] [address] [place] NT-proBNP [facility] 08-08 Natriuretic peptide.B prohormone N-Terminal [Mass/Vol] 734 pg/mL High <450 [facility] Comment on above: Order Comment: Speci men Type: BLOOD SPECIMEN Ordering Facility: [facility] Address: [address] [place] [address] Performed By: #### 3 3762-6 #### [facility] CLIA [id number] [address] [place] [address] [place] Culture, Anaerobic Any Sourc kath 08-07-2025 CUAN RLE WOUND No anaerobic bacteria isolated. Normal [facility] Comment on above: Performed By: #### M 100.4001, M100.3000, M100.2000 #### [facility] [address] [place], [address] Wound Cultureon 08-06-2025 WC RLE WOUND Wound Culture Wound Culture Serratia marcescens Amount Growth 1+ Enterococcus faecalis Enterococcus faecalis PMIR Amount Growth Very Rare Proteus mirabilis Amount Growth Very Rare Serratia marcescens: REACTION Providencia rettgeri cefTRIAXone Islt JASON <=0.25 Ciprofloxacin Islt JASON <=0.06 S Gentamicin Islt JASON <=1 levoFLOXacin Islt JASON <=0.12 S Meropenem Islt JASON <=0.25 S TMP SMX Islt JASON <=20 S Enterococcus faecalis: REACTION Ampicillin Islt JASON <=2 S Gentamicin Synergy Susc Islt SYN-S S Linezolid Islt JASON 2 S Streptomycin High Pot Susc Islt SYN-S Vancomycin Islt JASON 1 S Proteus mirabilis: REACTION Ampicillin Islt JASON <=2 S Ampicillin+Sulbac Islt JASON <=2 S Cefepime Islt JASON <=0.12 S cefTRIAXone Islt JASON <=0.25 Ciprofloxacin Islt JASON <=0.06 S Gentamicin Islt JASON <=1 S levoFLOXacin Islt JASON <=0.12 S Meropenem Islt JASON 1 S Pip+Tazo Islt JASON <=4 S TMP SMX Islt JASON <=20 S Providencia rettgeri: REACTION Ampicillin Islt JASON >=32 R Ampicillin+Sulbac Islt JASON >=32 R Cefepime Islt JASON <=0.12 S cefTRIAXone Islt JASON <=0.25 Ciprofloxacin Islt JASON <=0.06 S Gentamicin Islt JASON <=1 S levoFLOXacin Islt JASON <=0.12 S Meropenem Islt JASON 1 S Pip+Tazo Islt JASON <=4 S TMP SMX Islt JASON >=320 R Normal [facility] Comment on above: Performed By: #### M 100.4001, M100.3000, #### [facility] [address] [place], [address] Gram Stainon 08-03-2025 GS RLE WOUND Gram Stain 1+ White Blood Cells No organisms seen Normal [facility] Comment on above: Performed By: #### M 100.4001, M100.3000, M1 #### [facility] [address] [place], [place], [address] Anaerobic cultureOrdered By: Latrice Loredo on 08-02-2025 Bacteria identified Anaer cx Nom (Unsp spec) No anaerobic bacteria isolated. [facility] Gram stainOrdered By: Latrice chavez on 08-02-2025 Microscopic observation Gram stain Nom (Unsp spec) [facility] Comprehensive Metabolic Prof ilon 07-28-2025 Potassium [Moles/Vol] 6.0 mmol/L Invalid Interpretation Code 3.3-5.1 [facility] Comment on above: Order Comment: 1721 CRITICAL @RESULT Result Comment: Crit ical Result(s) Called at: by:??Results read back by same. Critical Result(s) Called at: 0841 07/28/2025 by: FROY BISHOP Results read back by same. AMENDED REPORT 07/28/25 0842 K previously reported as: 6.0 *H mmol/L Critical Result(s) Called at: by:??Results read back by same. Performed By: #### L 503.7505, L500.4050, L100.0100, L501.9520 #### [facility] [address] [place], [address] Absolute lymphocyte countOrd ered By: Jessa Alberto on 07-27-2025 Lymphocytes Auto (Unsp spec) [#/Vol] 1.70 10*3/uL 0.83-4.51 [facility] Absolute neutrophil countOrd ered By: Jessa Alberto on 07-27-2025 Neutrophils (Bld) [#/Vol] 12.4 10*3/uL High 2.0-7.7 [facility] Anion gap in Serum or Plasma Ordered By: Jessa Alberto on 07-27-2025 Anion gap [Moles/Vol] 15 mmol/L 5-15 [facility] Automated lymphocyte count a s percentage of total leukocytesOrdered By: Jessa Alberto on 07-27-2025 Lymphocytes/100 WBC Auto (Unsp spec) 10.8 % Low 19-41 [facility] BUN/creatinine ratioOrdered By: Jessa Alberto on 07-27-2025 Urea nitrogen/Creatinine [Mass ratio] 41.8 mg/mg High 10-20 [facility] Comment on above: Previous reported re sult: 41.9 RATIOEdited by: ANDREEA on 07/27/25:1650 AMENDED REPORT 07/27/25 1650 BUN/CRE previously reported as: 41.9 H RATIO Basophil percentageOrdered B y: Jessa Alberto on 07-27-2025 Basophils/100 WBC (Bld) 0.6 % 0-1 [facility] Bilirubin, totalOrdered By: Jessa Alberto on 07-27-2025 Bilirubin [Mass/Vol] 0.61 mg/dL 0.00-1.30 [facility] CBC W/Diff, Automatedon 07-17 Absolute Lymph 1.70 X10 3/uL Normal 0.83-4.51 [facility] Comment on above: Performed By: #### L 503.7505, L500.4050, L100.0100, L501.9520 #### [facility] [address] [place], [address] Absolute Neut 12.4 X10 3/uL High 2.0-7.7 [facility] Comment on above: Performed By: #### L 503.7505, L500.4050, L100.0100, L501.9520 #### [facility] [address] [place], [address] Basophils/100 WBC (Bld) 0.6 % Normal 0-1 [facility] Comment on above: Performed By: #### L 503.7505, L500.4050, L100.0100, L501.9520 #### [facility] [address] [place], [address] Eosinophils/100 WBC (Bld) 0.8 % Normal 0-5 [facility] Comment on above: Performed By: #### L 503.7505, L500.4050, L100.0100, L501.9520 #### [facility] [address] [place], [address] Erythrocyte distribution width (RBC) [Ratio] 15.0 % High 11.6-14.6 [facility] Comment on above: Performed By: #### L 503.7505, L500.4050, L100.0100, L501.9520 #### [facility] [address] [place], [address] Hematocrit (Bld) [Volume fraction] 39.3 % Normal 37-47 [facility] Comment on above: Performed By: #### L 503.7505, L500.4050, L100.0100, L501.9520 #### [facility] [address] [place], [address] Hemoglobin (Bld) [Mass/Vol] 12.9 g/dL Normal 12.0-15.0 [facility] Comment on above: Performed By: #### L 503.7505, L500.4050, L100.0100, L501.9520 #### [facility] [address] [place], [address] IG% 2.300 High 0.0-0.9 [facility] Comment on above: Result Comment: IG% - Immature Granulocytes (promyelocytes, myelocytes and metamyelocytes) > 1% indicates that a LEFT SHIFT is Present. Performed By: #### L 503.7505, L500.4050, L100.0100, L501.9520 #### [facility] [address] [place], [address] Lymphocytes/100 WBC (Bld) 10.8 % Low 19-41 [facility] Comment on above: Performed By: #### L 503.7505, L500.4050, L100.0100, L501.9520 #### [facility] [address] [place], [address] MCH (RBC) [Entitic mass] 30.9 pg Normal 27.0-32.0 [facility] Comment on above: Performed By: #### L 503.7505, L500.4050, L100.0100, L501.9520 #### [facility] [facility] [address] [place], [address] MCHC (RBC) [Mass/Vol] 32.8 g/dL Normal 32-36 [facility] Comment on above: Performed By: #### L 503.7505, L500.4050, L100.0100, L501.9520 #### [facility] [address] [place], [address] MCV (RBC) [Entitic vol] 94.0 fL Normal 81-99 [facility] Comment on above: Performed By: #### L 503.7505, L500.4050, L100.0100, L501.9520 #### [facility] [address] [place], [address] Monocytes/100 WBC (Bld) 6.3 % Normal 0-10 [facility] Comment on above: Performed By: #### L 503.7505, L500.4050, L100.0100, L501.9520 #### [facility] [address] [place], [address] Neutrophils/100 WBC (Bld) 79.2 % High 47-70 [facility] Comment on above: Performed By: #### L 503.7505, L500.4050, L100.0100, L501.9520 #### [facility] [address] [place], [address] Nucleated RBC (Bld) [#/Vol] 0 10*3/uL Normal 0-5 [facility] Comment on above: Performed By: #### L 503.7505, L500.4050, L100.0100, L501.9520 #### [facility] [address] [place], [address] Platelet mean volume (Bld) [Entitic vol] 10.1 fL Normal 6.2-12.0 [facility] Comment on above: Performed By: #### L 503.7505, L500.4050, L100.0100, L501.9520 #### [facility] [address] [place], [address] Platelets (Bld) [#/Vol] 392 10*3/uL Normal 150-450 [facility] Comment on above: Performed By: #### L 503.7505, L500.4050, L100.0100, L501.9520 #### [facility] [address] [place], [address] RBC (Bld) [#/Vol] 4.18 10*6/uL Low 4.2-5.4 [facility] Comment on above: Performed By: #### L 503.7505, L500.4050, L100.0100, L501.9520 #### [facility] [address] [place], [address] RDW SD 51.8 fl High 35.1-43.9 [facility] Comment on above: Performed By: #### L 503.7505, L500.4050, L100.0100, L501.9520 #### [facility] [address] [place], [address] WBC (Bld) [#/Vol] 15.7 10*3/uL High 4.4-11.0 [facility] Comment on above: Performed By: #### L 503.7505, L500.4050, L100.0100, L501.9520 #### [facility] [address] [place], [address] Carbon dioxide, total [Moles /volume] in Central venous bloodOrdered By: Jessa Alberto on 07-27-2025 CO2 [Moles/Vol] 18.1 mmol/L Low 21.0-32.0 [facility] Chloride assayOrdered By: Allan Alberto on 07-27-2025 Chloride [Moles/Vol] 94 mmol/L Low 98-108 [facility] Eosinophil percentageOrdered By: Jessa Alberto on 07-27-2025 Eosinophils/100 WBC (Bld) 0.8 % 0-5 [facility] Erythrocyte distribution wid th ratioOrdered By: Jessa Alberto on 07-27-2025 Erythrocyte distribution width (RBC) [Ratio] 15.0 % High 11.6-14.6 [facility] Erythrocyte distribution wid th standard deviationOrdered By: Jessa Alberto on 07-27-2025 Erythrocyte distribution width (RBC) [Ratio] 51.8 fl High 35.1-43.9 [facility] Glomerular filtration rate ( GFR) estimation/1.73 sq m using serum, plasma, or whole bOrdered By: Jessa Alberto on 07-27-2025 GFR/1.73 sq M.predicted among non-blacks MDRD (S/P/Bld) [Vol rate/Area] 26 mL/min/{1.73_m2} Low >60 [facility] Comment on above: mL/min/1.73m2 CKD-EP I Creatinine Equation (2020) Hematocrit Auto (Bld) [Volum e fraction]Ordered By: Jessa Alberto on 07-27-2025 Hematocrit (Bld) [Volume fraction] 39.3 % 37-47 [facility] Hemoglobin measurementOrdere d By: Jessa Alberto on 07-27-2025 Hemoglobin (Bld) [Mass/Vol] 12.9 g/dL 12.0-15.0 [facility] Immature granulocytes/100 WB C Auto (Bld)Ordered By: Jessa Alberto on 07-27-2025 Immature granulocytes/100 WBC (Bld) 2.300 % High 0.0-0.9 [facility] Comment on above: IG% - Immature Granu locytes (promyelocytes, myelocytes and metamyelocytes) > 1% indicates that a LEFT SHIFT is Present. Laboratory - Chemistry and C hemistry - challengeOrdered By: Jessa Alberto on 07-27-2025 AST [Catalytic activity/Vol] 31 U/L <32 [facility] MCV (mean corpuscular volume ) determinationOrdered By: Jessa Alberto on 07-27-2025 MCV (RBC) [Entitic vol] 94.0 fL 81-99 [facility] Mean corpuscular hemoglobin (MCH) determinationOrdered By: Jessa Alberto on 07-27-2025 MCH (RBC) [Entitic mass] 30.9 pg 27.0-32.0 [facility] Mean corpuscular hemoglobin concentration (MCHC) determinationOrdered By: Jessa Alberto on 07-27-2025 MCHC (RBC) [Mass/Vol] 32.8 g/dL 32-36 [facility] Mean platelet volume determi nationOrdered By: Jessa Alberto on 07-27-2025 Platelet mean volume (Bld) [Entitic vol] 10.1 fL 6.2-12.0 [facility] Monocyte percentageOrdered B y: Jessa Alberto on 07-27-2025 Monocytes/100 WBC (Bld) 6.3 % 0-10 [facility] Natriuretic peptide.B prohor rodolfo N-Terminal [Mass/volume] in Serum or PlasmaOrdered By: Jessa Alberto on 07-27-2025 Natriuretic peptide.B prohormone N-Terminal [Mass/Vol] 244 pg/mL <1800 [facility] Comment on above: Heart Failure Unlike ly: < 300 pg/mLHeart Failure Likely< 50 Years: > 450 pg/mL50-75 Years: > 900 pg/mL>75 Years: > 1800 pg/mL Neutrophil percentageOrdered By: Jessa Alberto on 07-27-2025 Neutrophils/100 WBC (Bld) 79.2 % High 47-70 [facility] Nucleated red blood cell per centageOrdered By: Jessa Alberto on 07-27-2025 Nucleated RBC/100 WBC (Bld) [Ratio] 0 % 0-5 [facility] Platelet countOrdered By: Allan Alberto on 07-27-2025 Platelets (Bld) [#/Vol] 392 10*3/uL 150-450 [facility] Potassium measurement (mass/ volume)Ordered By: Jessa Alberto on 07-27-2025 Potassium (Unsp spec) [Mass/Vol] 6.0 mmol/L Critically high 3.3-5.1 [facility] Comment on above: Critical Result(s) C alled at: by: Results read back by same. Critical Result(s) Called at: 0841 07/28/2025 by: FROY BISHOP Results read back by same.Previous reported result: 6.0 mmol/LEdited by: AUTOINCecilia on 07/28/25:0842 AMENDED REPORT 07/28/25 0842 K previously reported as: 6.0 *H mmol/L Critical Result(s) Called at: by: Results read back by same. Pro- Brain NATRIURETIC PEPTI Johnny 07-27-2025 Natriuretic peptide B (Bld) [Mass/Vol] 244 pg/mL Normal <=1800 [facility] Comment on above: Result Comment: Hear t Failure Unlikely: < 300 pg/mL Heart Failure Likely < 50 Years: > 450 pg/mL 50-75 Years: > 900 pg/mL >75 Years: > 1800 pg/mL Performed By: #### L 503.7505, L500.4050, L100.0100, L501.9520 #### [facility] [address] [facility] [place], [address] RBC Auto (Bld) [#/Vol]Ordere d By: Jessa Alberto on 07-27-2025 RBC (Bld) [#/Vol] 4.18 10*6/uL Low 4.2-5.4 [facility] Serum creatinine measurement (mass/volume)Ordered By: Jessa Alberto on 07-27-2025 Creatinine [Mass/Vol] 1.86 mg/dL High 0.70-1.20 [facility] Serum globulin measurementOr dered By: Jessa Alberto on 07-27-2025 Globulin (S) [Mass/Vol] 3.8 g/dL 2.2-4.2 [facility] Serum glucose measurement (m ass/volume)Ordered By: Jessa Alberto on 07-27-2025 Glucose [Mass/Vol] 203 mg/dL High 70-99 [facility] Serum or plasma alanine mullins otransferase (ALT) measurementOrdered By: Jessa Alberto on 07-27-2025 ALT [Catalytic activity/Vol] 29 U/L <35 [facility] Serum or plasma albumin emilio urement (mass/volume)Ordered By: Jessa Alberto on 07-27-2025 Albumin [Mass/Vol] 4.1 g/dL 3.4-4.8 [facility] Serum or plasma albumin/glob ulin mass ratioOrdered By: Jessa Alberto on 07-27-2025 Albumin/Globulin [Mass ratio] 1.1 {ratio} 0.9-2.4 [facility] Serum or plasma alkaline duong sphatase measurementOrdered By: Jessa Alberto on 07-27-2025 ALP [Catalytic activity/Vol] 79 U/L 35-104 [facility] Serum or plasma calcium emilio urement (mass/volume)Ordered By: Jessa Alberto on 07-27-2025 Calcium [Mass/Vol] 9.3 mg/dL 7.6-11.0 [facility] Serum or plasma urea nitroge n measurement (mass/volume)Ordered By: Jessa Alberto on 07-27-2025 Urea nitrogen [Mass/Vol] 78 mg/dL High 4-19 [facility] Sodium levelOrdered By: Aravind Alberto on 07-27-2025 Sodium [Moles/Vol] 127 mmol/L Low 133-145 [facility] TSH DL <= 0.005 mIU/L QnOrde red By: Jessa Alberto on 07-27-2025 TSH Qn 4.910 uIU/mL High 0.300-4.200 [facility] Thyroid Stim Hormone (TSH)on 07-27-2025 TSH 4.910 uIU/mL High 0.300-4.200 [facility] Comment on above: Performed By: #### L 503.7509, L500.4050, L100.0100, L501.9520 #### [facility] [address] [place], [address] Total proteinOrdered By: Philip Alberto on 07-27-2025 Protein [Mass/Vol] 7.9 g/dL 5.9-8.4 [facility] White blood cell (WBC) count Ordered By: Jessa Kumarmj on 07-27-2025 WBC (Bld) [#/Vol] 15.7 10*3/uL High 4.4-11.0 [facility] Wound Cultureon 06-03-2025 WC LOWER RIGHT LEG Escherichia coli Amount Growth 1+ Enterococcus faecalis Enterococcus faecalis SAUR Amount Growth 1+ Staphylococcus aureus Ampicillin Islt JASON <=2 Ampicillin+Sulbac Islt JASON <=2 S Cefepime Islt JASON <=0.12 cefTRIAXone Islt JASON <=0.25 S Ciprofloxacin Islt JASON 2 R B-Lactamase Extended Susc Islt NEG Gentamicin Islt JASON <=1 S levoFLOXacin Islt JASON 1 I Meropenem Islt JASON <=0.25 S Pip+Tazo Islt JASON <=4 S TMP SMX Islt JASON 160 R Enterococcus faecalis: REACTION Ampicillin Islt JASON <=2 S Gentamicin Synergy Susc Islt SYN-S S Linezolid Islt JASON 2 Streptomycin High Pot Susc Islt SYN-S S Vancomycin Islt JASON 1 S Staphylococcus aureus: REACTION cefOXitin Susc Islt NEG Doxycycline Islt JASON <=0.5 S Clindamycin Islt JASON Clindamycin.induce d Susc Islt POS Erythromycin Islt JASON R Gentamicin Islt JASON <=0.5 S Linezolid Islt JASON 2 S Moxifloxacin Islt JASON <=0.25 S Oxacillin Susc Islt <=0.25 S Tetracycline Islt JASON <=1 S TMP SMX Islt JASON <=10 S Vancomycin Islt JASON 1 S Normal [facility] Comment on above: Performed By: #### M 100.4001, M100.3000, #### [facility] [address] [facility] [place], [place], [id number] Gram Stainon 06-01-2025 GS LOWER RIGHT LEG Gram Stain 4+ Gram positive cocci 3+ White Blood Cells No Epithelial cells Normal [facility] Comment on above: Performed By: #### M 100.4001, M100.3000, #### [facility] [address] [place], [address] Gram stainOrdered By: Eliz Kelley on 05-31-2025 Microscopic observation Gram stain Nom (Unsp spec) [facility] BNP,B-Type NATRIURETIC PEPTI Johnny 10-31-2024 Natriuretic peptide B (Bld) [Mass/Vol] 49.5 pg/mL Normal 0-100 [facility] Comment on above: Performed By: #### M 100.4001, M100.3000, M100.2000 #### [facility] [address] [place], [address] CBC W/Diff, Automatedon 10-16 Absolute Lymph 2.63 X10 3/uL Normal 0.83-4.51 [facility] Comment on above: Performed By: #### L 503.6620, L500.4050, L501.9520, L100.0100 #### [facility] [address] [place], [address] Absolute Neut 6.2 X10 3/uL Normal 2.0-7.7 [facility] Comment on above: Performed By: #### L 503.6620, L500.4050, L501.9520, L100.0100 #### [facility] [address] [place], [address] Basophils/100 WBC (Bld) 0.5 % Normal 0-1 [facility] Comment on above: Performed By: #### L 503.6620, L500.4050, L501.9520, L100.0100 #### [facility] [address] [place], [address] Eosinophils/100 WBC (Bld) 1.4 % Normal 0-5 [facility] Comment on above: Performed By: #### L 503.6620, L500.4050, L501.9520, L100.0100 #### [facility] [address] [place], [address] Erythrocyte distribution width (RBC) [Ratio] 12.8 % Normal 11.6-14.6 [facility] Comment on above: Performed By: #### L 503.6620, L500.4050, L501.9520, L100.0100 #### [facility] [address] [place], [address] Hematocrit (Bld) [Volume fraction] 44.4 % Normal 37-47 [facility] Comment on above: Performed By: #### L 503.6620, L500.4050, L501.9520, L100.0100 #### [facility] [address] [place], [address] Hemoglobin (Bld) [Mass/Vol] 14.6 g/dL Normal 12.0-15.0 [facility] Comment on above: Performed By: #### L 503.6620, L500.4050, L501.9520, L100.0100 #### [facility] [address] [place], [address] IG% 0.600 Normal 0.0-0.9 [facility] Comment on above: Result Comment: IG% - Immature Granulocytes (promyelocytes, myelocytes and metamyelocytes) > 1% indicates that a LEFT SHIFT is Present. Performed By: #### L 503.6620, L500.4050, L501.9520, L100.0100 #### [facility] [address] [place], [address] Lymphocytes/100 WBC (Bld) 26.8 % Normal 19-41 [facility] Comment on above: Performed By: #### L 503.6620, L500.4050, L501.9520, L100.0100 #### [facility] [address] [place], [address] MCH (RBC) [Entitic mass] 31.1 pg Normal 27.0-32.0 [facility] Comment on above: Performed By: #### L 503.6620, L500.4050, L501.9520, L100.0100 #### [facility] [address] [place], [address] MCHC (RBC) [Mass/Vol] 32.9 g/dL Normal 32-36 [facility] Comment on above: Performed By: #### L 503.6620, L500.4050, L501.9520, L100.0100 #### [facility] [address] [place], [address] MCV (RBC) [Entitic vol] 94.5 fL Normal 81-99 [facility] Comment on above: Performed By: #### L 503.6620, L500.4050, L501.9520, L100.0100 #### [facility] [address] [place], [address] Monocytes/100 WBC (Bld) 7.7 % Normal 0-10 [facility] Comment on above: Performed By: #### L 503.6620, L500.4050, L501.9520, L100.0100 #### [facility] [address] [place], [address] Neutrophils/100 WBC (Bld) 63.0 % Normal 47-70 [facility] Comment on above: Performed By: #### L 503.6620, L500.4050, L501.9520, L100.0100 #### [facility] [address] [place], [address] Nucleated RBC (Bld) [#/Vol] 0 10*3/uL Normal 0-5 [facility] Comment on above: Performed By: #### L 503.6620, L500.4050, L501.9520, L100.0100 #### [facility] [address] [place], [address] Platelet mean volume (Bld) [Entitic vol] 10.9 fL Normal 6.2-12.0 [facility] Comment on above: Performed By: #### L 503.6620, L500.4050, L501.9520, L100.0100 #### [facility] [address] [place], [address] Platelets (Bld) [#/Vol] 253 10*3/uL Normal 150-450 [facility] Comment on above: Performed By: #### L 503.6620, L500.4050, L501.9520, L100.0100 #### [facility] [address] [place], [address] RBC (Bld) [#/Vol] 4.70 10*6/uL Normal 4.2-5.4 [facility] Comment on above: Performed By: #### L 503.6620, L500.4050, L501.9520, L100.0100 #### [facility] [address] [place], [address] RDW SD 44.5 fl High 35.1-43.9 [facility] Comment on above: Performed By: #### L 503.6620, L500.4050, L501.9520, L100.0100 #### [facility] [address] [place], [address] WBC (Bld) [#/Vol] 9.8 10*3/uL Normal 4.4-11.0 [facility] Comment on above: Performed By: #### L 503.6620, L500.4050, L501.9520, L100.0100 #### [facility] [address] [place], [address] Comprehensive Metabolic Prof ilon 10-28-2024 Albumin [Mass/Vol] 3.8 g/dL Normal 3.2-5.0 [facility] Comment on above: Performed By: #### L 503.6620, L500.4050, L501.9520, L100.0100 #### [facility] [address] [place], [address] Albumin/Globulin [Mass ratio] 1.0 {ratio} Normal 0.9-2.4 [facility] Comment on above: Performed By: #### L 503.6620, L500.4050, L501.9520, L100.0100 #### [facility] [address] [place], [address] ALK P 93 U/L Normal 45-117 [facility] Comment on above: Performed By: #### L 503.6620, L500.4050, L501.9520, L100.0100 #### [facility] [address] [place], [address] ALT [Catalytic activity/Vol] 48 U/L Normal 13-56 [facility] Comment on above: Performed By: #### L 503.6620, L500.4050, L501.9520, L100.0100 #### [facility] [address] [place], [address] AST [Catalytic activity/Vol] 33 U/L Normal 15-37 [facility] Comment on above: Performed By: #### L 503.6620, L500.4050, L501.9520, L100.0100 #### [facility] [address] [place], [address] Bilirubin [Mass/Vol] 0.50 mg/dL Normal 0.20-1.00 [facility] Comment on above: Result Comment: For patients on eltrombopag therapy, use of Dimension [place] TBIL is not recommended. Performed By: #### L 503.6620, L500.4050, L501.9520, L100.0100 #### [facility] [address] [place], [address] BUN/CRE 16.6 RATIO Normal 10-20 [facility] Comment on above: Performed By: #### L 503.6620, L500.4050, L501.9520, L100.0100 #### [facility] [address] [place], [address] CA,Total 9.4 mg/dL Normal 8.5-10.1 [facility] Comment on above: Performed By: #### L 503.6620, L500.4050, L501.9520, L100.0100 #### [facility] [address] [place], [address] Chloride [Moles/Vol] 102 mmol/L Normal 98-107 [facility] Comment on above: Performed By: #### L 503.6620, L500.4050, L501.9520, L100.0100 #### [facility] [address] [place], [address] CO2 [Moles/Vol] 32.0 mmol/L Normal 21.0-32.0 [facility] Comment on above: Performed By: #### L 503.6620, L500.4050, L501.9520, L100.0100 #### [facility] [address] [place], [address] Creatinine [Mass/Vol] 0.90 mg/dL Normal 0.55-1.02 [facility] Comment on above: Result Comment: The validity of the calculated GFR GFRAA in patients over 70 years has not been determined. Clinical correlation is essential. Performed By: #### L 503.6620, L500.4050, L501.9520, L100.0100 #### [facility] [address] [place], [address] EST GFR - AA 76 mL/min Normal >60 [facility] Comment on above: Result Comment: Afri can [place] GFR Calc Performed By: #### L 503.6620, L500.4050, L501.9520, L100.0100 #### [facility] [address] [place], [address] GAP 5 Normal 5-15 [facility] Comment on above: Performed By: #### L 503.6620, L500.4050, L501.9520, L100.0100 #### [facility] [address] [place], [address] GFR/1.73 sq M.predicted among non-blacks MDRD (S/P/Bld) [Vol rate/Area] 63 mL/min/{1.73_m2} Normal >60 [facility] Comment on above: Result Comment: Non- GFR Calc Performed By: #### L 503.6620, L500.4050, L501.9520, L100.0100 #### [facility] [address] [place], [address] Globulin (S) [Mass/Vol] 3.8 g/dL Normal 2.2-4.2 [facility] Comment on above: Performed By: #### L 503.6620, L500.4050, L501.9520, L100.0100 #### [facility] [address] [place], [address] Glucose [Mass/Vol] 236 mg/dL High 74-106 [facility] Comment on above: Result Comment: Gluc ose result greater than or equal to 200 mg/dL suggests DIABETES MELLITUS per A.D.A. criteria. Performed By: #### L 503.6620, L500.4050, L501.9520, L100.0100 #### [facility] [address] [place], [address] Potassium [Moles/Vol] 4.1 mmol/L Normal 3.5-5.1 [facility] Comment on above: Performed By: #### L 503.6620, L500.4050, L501.9520, L100.0100 #### [facility] [address] [place], [address] Sodium [Moles/Vol] 139 mmol/L Normal 136-145 [facility] Comment on above: Performed By: #### L 503.6620, L500.4050, L501.9520, L100.0100 #### [facility] [address] [place], [address] T PROT 7.6 g/dL Normal 6.4-8.2 [facility] Comment on above: Performed By: #### L 503.6620, L500.4050, L501.9520, L100.0100 #### [facility] [address] [place], [address] Urea nitrogen [Mass/Vol] 15 mg/dL Normal 7-18 [facility] Comment on above: Performed By: #### L 503.6620, L500.4050, L501.9520, L100.0100 #### [facility] [address] [place], [address] Thyroid Stim Hormone (TSH)on 10-28-2024 TSH 7.750 uIU/mL High 0.358-3.740 [facility] Comment on above: Performed By: #### L 503.6620, L500.4050, L501.9520, L100.0100 #### [facility] [address] [place], [address] Absolute lymphocyte countOrd ered By: Dr. Zambrano on 02-25-2023 Lymphocytes Auto (Unsp spec) [#/Vol] 2.24 10*3/uL 0.83-4.51 [facility] Basophil percentageOrdered B y: Dr. Zambrano on 02-25-2023 Basophils/100 WBC (Bld) 0.7 % 0-1 [facility] Chloride [Moles/Vol] 101 mmol/L 98-107 [facility] Eosinophils/100 WBC (Bld) 2.9 % 0-5 [facility] Glucose [Mass/Vol] 154 mg/dL 74-106 [facility] Comment on above: Fasting Glucose resu lt greater than or equal to 126 mg/dL suggests DIABETES MELLITUS per A.D.A. criteria. Neutrophils (Bld) [#/Vol] 6.6 10*3/uL 2.0-7.7 [facility] Neutrophils/100 WBC (Bld) 65.0 % 47-70 [facility] Potassium [Moles/Vol] 4.6 mmol/L 3.5-5.1 [facility] Sodium [Moles/Vol] 136 mmol/L 136-145 [facility] WBC (Bld) [#/Vol] 10.1 10*3/uL 4.4-11.0 [facility] Blood erythrocytes count (nu mber/volume)Ordered By: Dr. Zambrano on 02-25-2023 RBC (Bld) [#/Vol] 3.23 10*6/uL 4.2-5.4 [facility] Blood hemoglobin measurement (mass/volume)Ordered By: Dr. Zambrano on 02-25-2023 Hemoglobin (Bld) [Mass/Vol] 10.1 g/dL 12.0-15.0 [facility] Blood lymphocytes/100 leukoc ytesOrdered By: Dr. Zambrano on 02-25-2023 Lymphocytes/100 WBC (Bld) 22.1 % 19-41 [facility] Blood monocytes/100 leukocyt esOrdered By: Dr. Zambrano on 02-25-2023 Monocytes/100 WBC (Bld) 7.0 % 0-10 [facility] Blood platelet mean volumeOr dered By: Dr. Zambrano on 02-25-2023 Platelet mean volume (Bld) [Entitic vol] 9.4 fL 6.2-12.0 [facility] Determination of erythrocyte mean corpuscular volume (MCV)Ordered By: Dr. Zambrano on 02-25-2023 MCV (RBC) [Entitic vol] 100.6 fL 81-99 [facility] Hematocrit Auto (Bld) [Volum e fraction]Ordered By: Dr. Zambrano on 02-25-2023 Hematocrit (Bld) [Volume fraction] 32.5 % 37-47 [facility] - Chemistry and C hemistry - challengeOrdered By: Dr. Zambarno on 02-25-2023 CO2 [Moles/Vol] 29.0 mmol/L 21.0-32.0 [facility] Urea nitrogen/Creatinine [Mass ratio] 25.7 mg/mg 10-20 [facility] - Hematology and Cell countsOrdered By: Dr. Zambrano on 02-25-2023 Erythrocyte distribution width (RBC) [Entitic vol] 54.4 fL 35.1-43.9 [facility] Erythrocyte distribution width (RBC) [Ratio] 15.7 % 11.6-14.6 [facility] Immature granulocytes/100 WBC (Bld) 2.300 % 0.0-0.9 [facility] Comment on above: IG% - Immature Granu locytes (promyelocytes, myelocytes and metamyelocytes) > 1% indicates that a LEFT SHIFT is Present. MCH (RBC) [Entitic mass] 31.3 pg 27.0-32.0 [facility] Nucleated RBC/100 WBC (Bld) [Ratio] 0 % 0-5 [facility] MCHC Auto (RBC) [Mass/Vol]Or dered By: Dr. Zambrano on 02-25-2023 MCHC (RBC) [Mass/Vol] 31.1 g/dL 32-36 [facility] No Panel InformationOrdered By: Dr. Zambrano on 02-25-2023 Estimated Creatinine Clearance Calc 33.41 ml/min [facility] Estimated GFR (MDRD) Amer 96 mL/min >60 [facility] Comment on above: GFR Calc Estimated GFR (MDRD) Non-Af Amer 79 mL/min >60 [facility] Comment on above: Non- GFR Calc Platelets bldOrdered By: Dr. Zambrano on 02-25-2023 Platelets (Bld) [#/Vol] 381 10*3/uL 150-450 [facility] Serum or plasma calcium emilio urement (mass/volume)Ordered By: Dr. Zambrano on 02-25-2023 Calcium [Mass/Vol] 8.7 mg/dL 8.5-10.1 [facility] Serum or plasma creatinine m easurement (mass/volume)Ordered By: Dr. Zambrano on 02-25-2023 Creatinine [Mass/Vol] 0.74 mg/dL 0.55-1.02 [facility] Comment on above: The validity of the calculated GFR & GFRAA in patients over 70 years has not been determined. Clinical correlation is essential. Serum or plasma urea nitroge n measurement (mass/volume)Ordered By: Dr. Zambrano on 02-25-2023 Urea nitrogen [Mass/Vol] 19 mg/dL 7-18 [facility] Thin prep Papanicolaou smear with manual screeningOrdered By: Dr. Zambrano on 02-25-2023 Thin prep Papanicolaou smear with manual screening 6 5-15 [facility] COVID-19 virus antigen assay Ordered By: Dr. Zambrano on 02-24-2023 SARS-CoV-2 (COVID-19) Ag IA.rapid Ql (Resp) [facility] Absolute lymphocyte countOrd ered By: Dr. Lorenzo on 02-17-2023 Lymphocytes Auto (Unsp spec) [#/Vol] 1.89 10*3/uL 0.83-4.51 [facility] Basophil percentageOrdered B y: Dr. Lorenzo on 02-17-2023 Basophils/100 WBC (Bld) 0.7 % 0-1 [facility] Chloride [Moles/Vol] 105 mmol/L 98-107 [facility] Eosinophils/100 WBC (Bld) 4.0 % 0-5 [facility] Glucose [Mass/Vol] 166 mg/dL 74-106 [facility] Comment on above: Fasting Glucose resu lt greater than or equal to 126 mg/dL suggests DIABETES MELLITUS per A.D.A. criteria. Neutrophils (Bld) [#/Vol] 5.9 10*3/uL 2.0-7.7 [facility] Neutrophils/100 WBC (Bld) 65.4 % 47-70 [facility] Potassium [Moles/Vol] 3.6 mmol/L 3.5-5.1 [facility] Sodium [Moles/Vol] 140 mmol/L 136-145 [facility] WBC (Bld) [#/Vol] 9.1 10*3/uL 4.4-11.0 [facility] Blood erythrocytes count (nu mber/volume)Ordered By: Dr. Lorenzo on 02-17-2023 RBC (Bld) [#/Vol] 2.96 10*6/uL 4.2-5.4 [facility] Blood hemoglobin measurement (mass/volume)Ordered By: Dr. Lorenzo on 02-17-2023 Hemoglobin (Bld) [Mass/Vol] 9.1 g/dL 12.0-15.0 [facility] Blood lymphocytes/100 leukoc ytesOrdered By: Dr. Lorenzo on 02-17-2023 Lymphocytes/100 WBC (Bld) 20.9 % 19-41 [facility] Blood monocytes/100 leukocyt esOrdered By: Dr. Lorenzo on 02-17-2023 Monocytes/100 WBC (Bld) 8.0 % 0-10 [facility] Blood platelet mean volumeOr dered By: Dr. Lorenzo on 02-17-2023 Platelet mean volume (Bld) [Entitic vol] 10.5 fL 6.2-12.0 [facility] COVID-19 virus antigen assay Ordered By: Dr. Nolasco on 02-17-2023 SARS-CoV-2 (COVID-19) Ag IA.rapid Ql (Resp) [facility] Determination of erythrocyte mean corpuscular volume (MCV)Ordered By: Dr. Lorenzo on 02-17-2023 MCV (RBC) [Entitic vol] 95.6 fL 81-99 [facility] Hematocrit Auto (Bld) [Volum e fraction]Ordered By: Dr. Lorenzo on 02-17-2023 Hematocrit (Bld) [Volume fraction] 28.3 % 37-47 [facility] Laboratory - Chemistry and C hemistry - challengeOrdered By: Dr. Lorenzo on 02-17-2023 CO2 [Moles/Vol] 32.0 mmol/L 21.0-32.0 [facility] Urea nitrogen/Creatinine [Mass ratio] 27.1 mg/mg 10-20 [facility] Laboratory - Hematology and Cell countsOrdered By: Dr. Lorenzo on 02-17-2023 Erythrocyte distribution width (RBC) [Entitic vol] 44.2 fL 35.1-43.9 [facility] Erythrocyte distribution width (RBC) [Ratio] 12.9 % 11.6-14.6 [facility] Immature granulocytes/100 WBC (Bld) 1.000 % 0.0-0.9 [facility] Comment on above: IG% - Immature Granu locytes (promyelocytes, myelocytes and metamyelocytes) > 1% indicates that a LEFT SHIFT is Present. MCH (RBC) [Entitic mass] 30.7 pg 27.0-32.0 [facility] Nucleated RBC/100 WBC (Bld) [Ratio] 0.4 % 0-5 [facility] MCHC Auto (RBC) [Mass/Vol]Or dered By: Dr. Lorenzo on 02-17-2023 MCHC (RBC) [Mass/Vol] 32.2 g/dL 32-36 [facility] No Panel InformationOrdered By: Dr. Lorenzo on 02-17-2023 Estimated Creatinine Clearance Calc 33.41 ml/min [facility] Estimated GFR (MDRD) Amer 124 mL/min >60 [facility] Comment on above: GFR Calc Estimated GFR (MDRD) Non-Af Amer 103 mL/min >60 [facility] Comment on above: Non- GFR Calc Platelets bldOrdered By: Dr. Lorenzo on 02-17-2023 Platelets (Bld) [#/Vol] 253 10*3/uL 150-450 [facility] Serum or plasma calcium emilio urement (mass/volume)Ordered By: Dr. Lorenzo on 02-17-2023 Calcium [Mass/Vol] 8.2 mg/dL 8.5-10.1 [facility] Serum or plasma creatinine m easurement (mass/volume)Ordered By: Dr. Lorenzo on 02-17-2023 Creatinine [Mass/Vol] 0.59 mg/dL 0.55-1.02 [facility] Comment on above: The validity of the calculated GFR & GFRAA in patients over 70 years has not been determined. Clinical correlation is essential. Serum or plasma urea nitroge n measurement (mass/volume)Ordered By: Dr. Lorenzo on 02-17-2023 Urea nitrogen [Mass/Vol] 16 mg/dL 7-18 [facility] Thin prep Papanicolaou smear with manual screeningOrdered By: Dr. Lorenzo on 02-17-2023 Thin prep Papanicolaou smear with manual screening 3 5-15 [facility] Basophil percentageOrdered B y: Dr. Walsh on 02-13-2023 Bilirubin [Mass/Vol] 0.60 mg/dL 0.20-1.00 [facility] Comment on above: For patients on eltr ombopag therapy, use of Dimension [place] TBIL is not recommended. Protein [Mass/Vol] 6.5 g/dL 6.4-8.2 [facility] Laboratory - Chemistry and C hemistry - challengeOrdered By: Dr. Walsh on 02-13-2023 ALP [Catalytic activity/Vol] 65 U/L 45-117 [facility] ALT [Catalytic activity/Vol] 33 U/L 13-56 [facility] Globulin (S) [Mass/Vol] 3.1 g/dL 2.2-4.2 [facility] No Panel InformationOrdered By: Dr. Damon on 02-13-2023 Thyroid Stimulating Hormone (TSH) 1.40 uIU/mL 0.358-3.74 [facility] No Panel InformationOrdered By: Dr. Walsh on 02-13-2023 Vitamin D 25-Hydroxy 24.0 ng/mL [facility] Comment on above: Vitamin D 25(OH) Sta tus Range Deficiency <20 ng/mL (50nmol/L) Insufficiency 20 - 30 ng/mL (50 - 75 nmol/L) Sufficiency 30 - 100 ng/mL (75 - 250 nmol/L) Toxicity >100 ng/mL (>250 nmol/L) Serum or plasma albumin emilio urement (mass/volume)Ordered By: Dr. Walsh on 02-13-2023 Albumin [Mass/Vol] 3.4 g/dL 3.2-5.0 [facility] Serum or plasma albumin/glob ulin mass ratioOrdered By: Dr. Walsh on 02-13-2023 Albumin/Globulin [Mass ratio] 1.1 {ratio} 0.9-2.4 [facility] Thin prep Papanicolaou smear with manual screeningOrdered By: Dr. Walsh on 02-13-2023 Thin prep Papanicolaou smear with manual screening 27 U/L 15-37 [facility] Absolute lymphocyte counton 08-12-2022 Lymphocytes Auto (Unsp spec) [#/Vol] 2.80 10*3/uL 0.83-4.51 [facility] Work Phone: Basophil percentageon 2021 Basophils/100 WBC (Bld) 0.6 % 0-1 [facility] Work Phone: Bilirubin [Mass/Vol] 0.60 mg/dL 0.20-1.00 [facility] Work Phone: Comment on above: For patients on eltr ombopag therapy, use of Dimension [place] TBIL is not recommended. Chloride [Moles/Vol] 104 mmol/L 98-107 [facility] Work Phone: Cholesterol [Mass/Vol] 233 mg/dL <200 [facility] Work Phone: Comment on above: <200 mg/dL Desirable 200-240 mg/dL Borderline >240 mg/dL High Risk Eosinophils/100 WBC (Bld) 1.1 % 0-5 [facility] Work Phone: Glucose [Mass/Vol] 158 mg/dL 74-106 [facility] Work Phone: Comment on above: Fasting Glucose resu lt greater than or equal to 126 mg/dL suggests DIABETES MELLITUS per A.D.A. criteria. Neutrophils (Bld) [#/Vol] 5.4 10*3/uL 2.0-7.7 [facility] Work Phone: Neutrophils/100 WBC (Bld) 59.5 % 47-70 [facility] Work Phone: Potassium [Moles/Vol] 4.0 mmol/L 3.5-5.1 [facility] Work Phone: Protein [Mass/Vol] 7.8 g/dL 6.4-8.2 [facility] Work Phone: Sodium [Moles/Vol] 140 mmol/L 136-145 [facility] Work Phone: Triglyceride [Mass/Vol] 247 mg/dL <199 [facility] Work Phone: Comment on above: The drugs N-Acetylcy steine and Metamizole may falsely depress this assay.Serum Triglycerides Reference Interval Normal <150 mg/dL Borderline high 150 - 199 mg/dL High 200 - 499 mg/dL Very High > or = 500 mg/dL WBC (Bld) [#/Vol] 9.0 10*3/uL 4.4-11.0 [facility] Work Phone: Blood erythrocytes count (nu mber/volume)on 08-12-2022 RBC (Bld) [#/Vol] 4.70 10*6/uL 4.2-5.4 [facility] Work Phone: [phone] Blood hemoglobin measurement (mass/volume)on 08-12-2022 Hemoglobin (Bld) [Mass/Vol] 14.9 g/dL 12.0-15.0 [facility] Work Phone: Blood lymphocytes/100 leukoc yteson 08-12-2022 Lymphocytes/100 WBC (Bld) 31.0 % 19-41 [facility] Work Phone: Blood monocytes/100 leukocyt eson 08-12-2022 Monocytes/100 WBC (Bld) 7.5 % 0-10 [facility] Work Phone: [phone] Blood platelet mean volumeon 08-12-2022 Platelet mean volume (Bld) [Entitic vol] 11.0 fL 6.2-12.0 [facility] Work Phone: [phone] Determination of erythrocyte mean corpuscular volume (MCV)on 08-12-2022 MCV (RBC) [Entitic vol] 93.0 fL 81-99 [facility] Work Phone: [phone] Hematocrit Auto (Bld) [Volum e fraction]on 08-12-2022 Hematocrit (Bld) [Volume fraction] 43.7 % 37-47 [facility] Work Phone: [phone] Laboratory - Chemistry and C hemistry - challengeon 08-12-2022 ALP [Catalytic activity/Vol] 68 U/L 45-117 [facility] Work Phone: [phone] ALT [Catalytic activity/Vol] 43 U/L 13-56 [facility] Work Phone: [phone] CO2 [Moles/Vol] 29.0 mmol/L 21.0-32.0 [facility] Work Phone: [phone] Globulin (S) [Mass/Vol] 4.0 g/dL 2.2-4.2 [facility] Work Phone: [phone] Urea nitrogen/Creatinine [Mass ratio] 20.6 mg/mg 10-20 [facility] Work Phone: [phone] Laboratory - Hematology and Cell countson 08-12-2022 Erythrocyte distribution width (RBC) [Entitic vol] 43.0 fL 35.1-43.9 [facility] Work Phone: [phone] Erythrocyte distribution width (RBC) [Ratio] 12.5 % 11.6-14.6 [facility] Work Phone: [phone] Immature granulocytes/100 WBC (Bld) 0.300 % 0.0-0.9 [facility] Work Phone: [phone] Comment on above: IG% - Immature Granu locytes (promyelocytes, myelocytes and metamyelocytes) > 1% indicates that a LEFT SHIFT is Present. MCH (RBC) [Entitic mass] 31.7 pg 27.0-32.0 [facility] Work Phone: [phone] Nucleated RBC/100 WBC (Bld) [Ratio] 0 % 0-5 [facility] Work Phone: [phone] MCHC Auto (RBC) [Mass/Vol]on 08-12-2022 MCHC (RBC) [Mass/Vol] 34.1 g/dL 32-36 [facility] Work Phone: [phone] Panel Informationon 08-12 Estimated GFR (MDRD) Amer 91 mL/min >60 [facility] Work Phone: [phone] Comment on above: GFR Calc Estimated GFR (MDRD) Non-Af Amer 75 mL/min >60 [facility] Work Phone: [phone] Comment on above: Non- GFR Calc Thyroid Stimulating Hormone (TSH) 2.07 uIU/mL 0.358-3.74 [facility] Work Phone: Urine Microalbumin/Creatinine Ratio 237.4 mg/g CRE <30 [facility] Work Phone: [phone] Platelets bldon 08-12-2022 Platelets (Bld) [#/Vol] 233 10*3/uL 150-450 [facility] Work Phone: [phone] Serum or plasma albumin emilio urement (mass/volume)on 08-12-2022 Albumin [Mass/Vol] 3.8 g/dL 3.2-5.0 [facility] Work Phone: [phone] Serum or plasma albumin/glob ulin mass ratioon 08-12-2022 Albumin/Globulin [Mass ratio] 1.0 {ratio} 0.9-2.4 [facility] Work Phone: Serum or plasma calcium emilio urement (mass/volume)on 08-12-2022 Calcium [Mass/Vol] 9.0 mg/dL 8.5-10.1 [facility] Work Phone: Serum or plasma cholesterol in HDL measurement (mass/volume)on 08-12-2022 Cholesterol in HDL [Mass/Vol] 42 mg/dL >40 [facility] Work Phone: Comment on above: The drugs N-Acetylcy steine and Metamizole may falsely depress this assay. Reference Range HDL <40 mg/dL Low HDL Cholesterol HDL >or= 60 mg/dL High HDL Cholesterol Serum or plasma cholesterol in VLDL measurement (mass/volume)on 08-12-2022 Cholesterol in VLDL [Mass/Vol] 49 mg/dL 5-40 [facility] Work Phone: [phone] Serum or plasma creatinine m easurement (mass/volume)on 08-12-2022 Creatinine [Mass/Vol] 0.78 mg/dL 0.55-1.02 [facility] Work Phone: Comment on above: The validity of the calculated GFR & GFRAA in patients over 70 years has not been determined. Clinical correlation is essential. Serum or plasma low density lipoprotein (LDL) cholesterol measurement (mass/volume)on 08-12-2022 Cholesterol in LDL [Mass/Vol] 142 mg/dL 0-130 [facility] Work Phone: Serum or plasma urea nitroge n measurement (mass/volume)on 08-12-2022 Urea nitrogen [Mass/Vol] 16 mg/dL 7-18 [facility] Work Phone: Thin prep Papanicolaou smear with manual screeningon 08-12-2022 Thin prep Papanicolaou smear with manual screening 32 U/L 15-37 [facility] Work Phone: Thin prep Papanicolaou smear with manual screening 7 5-15 [facility] Work Phone: Thin prep Papanicolaou smear with manual screening 72.4 mg/L NO RANGE EST. [facility] Work Phone: Urine creatinine measurement (mass/volume)on 08-12-2022 Creatinine (U) [Mass/Vol] 30.50 mg/dL NO RANGE EST. 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 Jessa Alberto MD Work Phone: [facility] 08-15-2025 05:53-0400 Heart rate 87 /min Dr. Jessa Alberto MD Work Phone: [facility] 08-15-2025 05:53-0400 Respiratory rate 15 /min Dr. Jessa Alberto MD Work Phone: [facility] 08-15-2025 05:53-0400 SaO2% (BldA) [Mass fraction] 95 % Dr. Jessa Alberto MD Work Phone: [facility] 08-15-2025 02:13-0400 Diastolic blood pressure 57 mm[Hg] Dr. Jessa Alberto MD Work Phone: [facility] 08-15-2025 02:13-0400 Systolic blood pressure 105 mm[Hg] Dr. Jessa Alberto MD Work Phone: [facility] 08-14-2025 16:46-0400 Body height 160.[address] Jessa Alberto MD Work Phone: [facility] 08-14-2025 16:46-0400 Body mass index (BMI) [Ratio] 30.8 kg/m2 Dr. Jessa Alberto MD Work Phone: [facility] 08-14-2025 16:46-0400 Body weight 78.[address] Jessa Alberto MD Work Phone: [facility] 08-14-2025 15:45-0400 Inhaled oxygen flow rate 2 L/min Dr. Jessa Alberto MD Work Phone: [facility] 08-09-2025 08:55-0400 Body mass index (BMI) [Ratio] 30.1 kg/m2 Dr. Jessa Alberto MD Work Phone: [facility] 08-02-2025 09:45-0400 Body temperature 96.8 [degF] Dr. Jessa Alberto MD Work Phone: [facility] 08-02-2025 09:45-0400 Body weight 77.[address] Jessa Alberto MD Work Phone: [facility] 08-02-2025 09:45-0400 Diastolic blood pressure 66 mm[Hg] Dr. Jessa Alberto MD Work Phone: [facility] 08-02-2025 09:45-0400 Heart rate 93 /min Dr. Jessa Alberto MD Work Phone: [facility] 08-02-2025 09:45-0400 Respiratory rate 18 /min Dr. Jessa Alberto MD Work Phone: [facility] 08-02-2025 09:45-0400 Systolic blood pressure 115 mm[Hg] Dr. Jessa Alberto MD Work Phone: [facility] 03-02-2023 09:00-0400 Heart rate 71 /min Dr. Jessa Alberto Work Phone: [facility] 03-02-2023 09:00-0400 SaO2% (BldA) [Mass fraction] 95 % Dr. Jessa Alberto Work Phone: [facility] 03-02-2023 08:57-0400 Body temperature 97.8 [degF] Dr. Jessa Alberto Work Phone: [facility] 03-02-2023 08:57-0400 Diastolic blood pressure 54 mm[Hg] Dr. Jessa Alberto Work Phone: [facility] 03-02-2023 08:57-0400 Respiratory rate 17 /min Dr. Jessa Alberto Work Phone: [facility] 03-02-2023 08:57-0400 Systolic blood pressure 138 mm[Hg] Dr. Jessa Alberto Work Phone: [facility] 02-25-2023 11:05-0400 Body height 160.[address] Jessa Alberto Work Phone: [facility] 02-25-2023 11:05-0400 Body weight 78.[address] Jessa Alberto Work Phone: [facility] 02-24-2023 11:04-0400 Body mass index (BMI) [Ratio] 30.5 kg/m2 Dr. Jessa Alberto Work Phone: [facility] 02-17-2023 20:23-0400 Body temperature 98.1 [degF] Dr. Jessa Alberto Work Phone: [facility] 02-17-2023 20:23-0400 Diastolic blood pressure 66 mm[Hg] Dr. Jessa Alberto Work Phone: [facility] 02-17-2023 20:23-0400 Heart rate 83 /min Dr. Jessa Alberto Work Phone: [facility] 02-17-2023 20:23-0400 Respiratory rate 20 /min Dr. Jessa Alberto Work Phone: [facility] 02-17-2023 20:23-0400 SaO2% (BldA) [Mass fraction] 96 % Dr. Jessa Alberto Work Phone: [facility] 02-17-2023 20:23-0400 Systolic blood pressure 154 mm[Hg] Dr. Jessa Alberto Work Phone: [facility] 02-16-2023 15:05-0400 Body height 160.[address] Jessa Alberto Work Phone: [facility] 02-16-2023 15:05-0400 Body weight 74.[address] Jessa Alberto Work Phone: [facility] 02-16-2023 04:40-0400 Inhaled oxygen flow rate 2 L/min Dr. Jessa Alberto Work Phone: [facility] 02-13-2023 01:15-0400 Body mass index (BMI) [Ratio] 29.2 kg/m2 Dr. Jessa Alberto Work Phone: [facility] 05-04-2017 15:04-0400 BMI (Body Mass Index) 28.35 kg/m2 [facility] Work Phone: 05-04-2017 15:04-0400 Body Temperature 98 [degF] [facility] Work Phone: 05-04-2017 15:04-0400 BP Diastolic 82 mm[Hg] [facility] Work Phone: 05-04-2017 15:04-0400 BP Systolic 126 mm[Hg] [facility] Work Phone: 05-04-2017 15:04-0400 Height 157.48 cm [facility] Work Phone: 05-04-2017 15:04-0400 Pulse (Heart Rate) 61 /min [facility] Work Phone: 05-04-2017 15:04-0400 Pulse Oximetry 96 % [facility] Work Phone: 05-04-2017 15:04-0400 Respiratory Rate 18 /min [facility] Work Phone: 05-04-2017 15:04-0400 Weight 70.31 kg [facility] Work Phone: 04-23-2010 14:22-0400 Weight 73.18 kg [facility] Work Phone: Encounters Encounter Date Encounter Type Care Provider Facility Start: 08-09-2025 ambulatory Jessa Alberto Facility: [facility] Start: 08-02-2025 Non-patient / Non-visit Latrice Martinez sandee [employer] [facility] Start: 07-27-2025 End: 07-27-[address] Jessa Alberto MD Work Phone: -Laboratory [place] [facility] [facility] Start: 07-27-2025 End: 07-27-[address] Jessa Alberto MD -Laboratory Palmira Gaxiola [facility] Start: 07-27-2025 End: 07-27-2025 ambulatory Jessa Alberto Facility:[facility] Start: 05-31-2025 End: 05-31-[address] Jessa Alberto MD Work Phone: -Laboratory Specimen Start: 05-31-2025 End: 05-31-2025 Patient encounter procedure Eliz Kelley [employer] -Laboratory Specimen Work Phone: Start: 05-31-2025 End: 05-31-2025 ambulatory [facility] Facility:[facility] Start: 04-24-2025 ambulatory [facility] Facility:[facility] Start: 10-28-2024 End: 10-28-2024 ambulatory [facility] Facility:[facility] Start: 02-17-2023 End: 03-02-2023 Evaluation and management of inpatient Dr. Jessa Alberto Work Phone: [facility]-Transitional Care Unit Start: 02-17-2023 Non-patient / Non-visit Dr. Allan Alberto Work Phone: [facility] Start: 02-16-2023 Non-patient / Non-visit Dr. Allan Alberto Work Phone: [facility] Start: 02-15-2023 Non-patient / Non-visit Dr. Allan Alberto Work Phone: [facility] Start: 02-14-2023 Non-patient / Non-visit Dr. Allan Alberto Work Phone: [facility] Start: 02-13-2023 Non-patient / Non-visit Dr. Allan Alberto Work Phone: [facility] Start: 02-13-2023 End: 02-13-2023 Non-patient / Non-visit Dr. Jessa Alberto Work Phone: [facility] Start: 02-12-2023 Non-patient / Non-visit Dr. Allan Alberto Work Phone: [facility] Start: 02-12-2023 End: 02-17-2023 Evaluation and management of inpatient Dr. Jessa Alberto Work Phone: [facility]Medical Surgical 3 Start: 08-12-2022 End: 08-12-2022 ambulatory [facility] Work Phone: Start: 08-12-2022 End: 08-12-2022 Patient encounter procedure [facility]-Laboratory Procedures Date Procedure Procedure Detail Performing Clinician Start: 08-15-[address] Jessa Alberto MD Work Phone: Start: 08-14-2025 Urnls dip stick/tabl et reagent auto microscopy Dr. Jessa Alberto MD Work Phone: Start: 08-02-[address] Jessa Alberto MD Work Phone: Start: 08-02-2025 Gram stain microscopy Derek Alberto MD Work Phone: Start: 08-02-2025 End: 08-02-2025 Microbial culture, routine Dr. Jessa barker MD Work Phone: Start: 05-31-2025 Gram stain microscopy Derek Alberto MD Work Phone: Start: 05-31-2025 End: 05-31-2025 Microbial culture, routine Dr. Jessa barker MD Work Phone: Start: 02-13-2023 Fluoroscopic guidance Derek Alberto Work Phone: Start: 02-13-2023 Plain X-ray of hip Dr. Jessa Alberto Work Phone: Start: 02-13-2023 Open reduction of fr acture of femur with internal fixation Dr. Jessa Alberto Work Phone: Start: 02-13-2023 Radiologic examinati on of knee Dr. Jessa Alberto Work Phone: Start: 02-12-2023 Plain chest X-ray Dr. Joey Alberto Work Phone: Start: 02-12-2023 Plain x-ray of pelvi s and lower extremity Dr. Jessa Alberto Work Phone: Viral antigen assay Dr. Aravind Alberto Work Phone: Viral antigen assay Dr. 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 [facility] Start: 08-14-2025 Non-patient / Non-visit Non-patient / Non-visit -Bruni Inpatient Physicians Work Phone: Start: 08-14-2025 End: 08-14-2025 [facility] Start: 08-14-2025 Notification of physician [facility] Start: 08-14-2025 Care regimes management [facility] Start: 08-14-2025 Following clinical pathway protocol [facility] Start: 08-14-2025 Ambulation without limitation [facility] Start: 08-14-2025 Assessment of risk of venous thromboembolism [facility] Start: 08-14-2025 Consultation for treatment [facility] Start: 08-14-2025 Incentive spirometry [facility] Start: 08-14-2025 Insertion of catheter into peripheral vein [facility] Start: 08-14-2025 Measuring intake and output [facility] Start: 08-14-2025 Oxygen therapy [facility] Start: 08-14-2025 Providing care according to standard [facility] Start: 08-14-2025 Referral for physical therapy [facility] Start: 08-14-2025 Referral to occupational therapist [facility] Start: 08-14-2025 Referral to service [facility] Start: 08-14-2025 [facility] Start: 08-14-2025 Verification routine [facility] Start: 08-14-2025 Admission procedure [facility] Start: 08-14-2025 Evaluation and management of inpatient KATELYN (acute kidney injury) -Medical Surgical 3 Work Phone: Start: 08-14-2025 Bacteria identified in Urine by Culture Urine Culture [facility] Start: 08-14-2025 [facility] Start: 08-14-2025 CT of head without contrast Brain/Head without Contrast [facility] Start: 08-14-2025 Plain chest X-ray Chest 1 View (Portable) [facility] Start: 08-14-2025 Patient referral to dietitian [facility] Start: 08-09-2025 Non-patient / Non-visit Non-patient / Non-visit -[facility] Start: 08-09-2025 [facility]istered [facility] Work Phone: Start: 03-25-2023 Blood chemistry [facility] Start: 2023 Blood chemistry [facility] Start: 03-11-2023 Blood chemistry [facility] Start: 03-04-2023 Blood chemistry [facility] Start: 03-02-2023 Patient discharge [facility] Start: 02-27-2023 Referral to service [facility] Start: 02-20-2023 Verification routine [facility] Start: 02-18-2023 Development of care plan [facility] Start: 02-18-2023 Wound care [facility] Start: 02-18-2023 Developing a treatment plan [facility] Start: 02-18-2023 Patient referral to dietitian [facility] Start: 02-18-2023 Following clinical pathway protocol [facility] Start: 02-17-2023 Admission procedure [facility] Start: 02-17-2023 Measuring intake and output [facility] Start: 02-17-2023 Patient referral to dietitian [facility] Start: 02-17-2023 Referral to occupational therapist [facility] Start: 02-17-2023 Referral to service [facility] Start: 02-17-2023 Vital signs measurements [facility] Start: 02-17-2023 [facility] Start: 02-17-2023 Patient discharge [facility] Start: 02-13-2023 Measuring intake and output [facility] Start: 02-13-2023 End: 02-13-2023 [facility] Start: 02-13-2023 Ambulation therapy management [facility] Start: 02-13-2023 Application of device [facility] Start: 02-13-2023 Exercises [facility] Start: 02-13-2023 Following clinical pathway protocol [facility] Start: 02-13-2023 Introduction of urinary catheter [facility] Start: 02-13-2023 Neurovascular assessment [facility] Start: 02-13-2023 Patient education [facility] Start: 02-13-2023 Provision of activity privileges [facility] Start: 02-13-2023 Recommendation to continue with treatment [facility] Start: 02-13-2023 Referral to occupational therapist [facility] Start: 02-13-2023 Referral to service [facility] Start: 02-13-2023 Vital signs measurements [facility] Start: 02-13-2023 Wound care [facility] Start: 02-13-2023 Measuring intake and output [facility] Start: 02-13-2023 Measuring intake and output [facility] Start: 02-13-2023 Application of intermittent pneumatic compression device [facility] Start: 02-13-2023 Following clinical pathway protocol [facility] Start: 02-13-2023 Verification routine [facility] Start: 02-13-2023 Application of ice collar, cap or bag [facility] Start: 02-13-2023 Assessment of risk of venous thromboembolism [facility] Start: 02-13-2023 Consultation [facility] Start: 02-13-2023 Insertion of catheter into peripheral vein [facility] Start: 02-13-2023 Neurovascular assessment [facility] Start: 02-13-2023 Providing care according to standard [facility] Start: 02-13-2023 Provision of activity privileges [facility] Start: 02-13-2023 Referral to service [facility] Start: 02-13-2023 Skin care [facility] Start: 02-13-2023 [facility] Start: 02-13-2023 Measuring intake and output [facility] Start: 02-12-2023 Admission procedure [facility] Start: 05-04-2017 End: 05-04-2017 Appointment Appointment [facility] Work Phone: Start: 05-04-2017 End: 05-04-2017 Radex hip unilateral with pelvis 2-3 views X-Ray, Hip, unilateral, with pelvis; 2-3 views [facility] Work Phone: Start: 05-04-2017 End: 05-04-2017 Radex spine lumbosacral minimum 4 views X-Ray, Spine, Lumbosacral 2-3 views [facility] Work Phone: Creatine kinase [Enz ymatic activity/volume] in Serum or Plasma [facility] Creatine kinase [Enz ymatic activity/volume] in Serum or Plasma [facility] Patient Education ED Fall Prevention [facility] Work Phone: Patient referral [facility] Work Phone: Urine culture [facility] Payers Date Payer Category Payer Medicaid [id number] 2024 Self-pay [id number] 2016 Medicare [id number] Unknown [id number] [id number] Unknown [id number] [id number] [id number] Unknown [id number] [id number] [id number] Unknown [id number] [id number] [id number] Unknown [id number] [id number] [id number] Social History Date Type Detail Facility Start: 10-11-2021 End: 02-17-2023 Tobacco smoking status NHIS Unknown if ever smoked [facility] Start: 10-18-2019 Non-smoker [facility] Start: 1935 Sex Assigned At Female [facility] Start: 04-28-2024 End: 08-14-2025 Tobacco smoking status NHIS Never smoked tobacco (finding) [facility] Sex Female [facility] NEGATED: Highlighted row [facility] Medical Equipment Procedure Code Equipment Code Equipment Origin al Text Equipment Identifier Dates ORIF, hip, using Gamma nail ([id number]) Orthopaedic bone screw, non-bioabsorbable, sterile [id number] FDA Start: 02-13-2023 ORIF, hip, using Gamma nail ([id number]) Orthopaedic bone screw, non-bioabsorbable, sterile ()[id number] FDA Start: 02-13-2023 ORIF, hip, using Gamma nail Femur nail ()[id number] FDA Start: 02-13-2023 ORIF, hip, using Gamma nail Orthopaedic bone screw, non-bioabsorbable, sterile ()[id number] FDA Start: 02-13-2023 Extraction, cataract, with IOL insertion LENS FDA Start: 09-29-2019 Extraction, cataract, with IOL insertion LENS FDA Start: 09-29-2019 Extraction, cataract, with IOL insertion LENS FDA Start: 09-29-2019 Extraction, cataract, with IOL insertion LENS FDA Start: 09-29-2019 Extraction, cataract, with IOL insertion LENS FDA Start: 09-29-2019 Goals Date Patient Goal Desired Activity /State Functional Status Date Assessment Result Facility 08-15-2025 Functional status Ambulates [facility] Work Phone: 03-02-2023 Functional status Chair [facility] Work Phone: 02-17-2023 Functional status Chair [facility] Work Phone: Mental Status Date Assessment Result Facility 08-15-2025 Cognitive function Voice/Name [facility] Work Phone: 03-02-2023 Cognitive function Voice/Name [facility] Work Phone: 02-17-2023 Cognitive function Voice/Name [facility] Work Phone: 02-17-2023 Cognitive function Appropriate;Cooperativ e [facility] Work Phone: Clinical Notes 02-13-2023 to 02-27-2023 Note Date & Type Note Facility 02-27-2023 Discharge summary Note Date/Time February 27, 2023 2:01pm [facility] Medical Records Department [address] [place] [address] Discharge Summary 02/27/23 1357 MR#: [id number] Acct: [id number] Name: SARAH SCHMITZ Rep #:[id number] : 1935 87 From: Sachin Zambrano MD PCP: Dr. Jessa Alberto MD Status:ADM IN Location: [facility] TCU19-1 Providers Date of Admission: 02/17/23 Primary Care Physician: Dr. Jessa Alberto MD Reason For Visit: LEFT HIP FRACTURE Diagnosis Discharge Diagnosis (1) Debility: Status: Acute Code(s): R53.81 - Other malaise (2) Closed left hip fracture: Status: Acute Code(s): S72.002A - Fracture of unspecified part of neck of left femur, initial encounterfor closed fracture (3) Hypertension: Status: Chronic Code(s): I10 - Essential (primary) hypertension (4) Hypothyroidism: Status: Acute Code(s): E03.9 - Hypothyroidism, unspecified (5) History of pulmonary embolism: Status: Acute Code(s): Z86.711 - Personal history of pulmonary embolism (6) History of COVID-19: Status: Acute Code(s): Z86.16 - Personal history of COVID-19 Plan 87 year old female with below past medical history hospitalized for left hip fracture, underwent left femur intramedullary nail fixation 02/13/[address] Andrews, admitted to TCU with debility, here for rehabilitation, strengthening, prior to discharge home. * Debility - PT/OT. * Pain - Tylenol 1000mg q6, Oxycodone 5mg q4h prn pain (6-10). * Bowel - senna/colace 2 tablets bid, Dulcolax 10mg pr x 1 prn, MOM 30ml po x1 prn. * Adult immunization - Administer pneumonia vaccine, covid19 vaccine, flu vaccine as appropriate. * DVT prophylaxis - Lovenox 40mg sc daily. * Hypertension - Lisinopril 20mg daily, Amlodipine 5mg daily. * Calcium deficiency - TUMS 500mg tidcm. * Hypothyroidism - Levothyroxine 75mg daily. * Insomnia - Melatonin 3mg qhs prn. Medications at Discharge Home Medications levothyroxine 75 mcg tablet 75 mcg PO DAILY THYROID 05/17/17 acetaminophen 500 mg tablet 1,000 mg PO Q6 Pain 02/17/23 lisinopril 20 mg tablet 20 mg PO DAILY Check with primary doctor 02/17/23 melatonin 3 mg tablet 3 mg PO QHS PRN PRN Insomnia #0 tabs 02/17/23 acetaminophen 500 mg tablet 1,000 mg PO TID #0 tabs 02/27/23 amlodipine 5 mg tablet 5 mg PO DAILY 30 days #30 tabs 02/27/23 calcium carbonate 200 mg calcium (500 mg) chewable tablet 500 mg PO TIDCM #0 tabs 02/27/23 oxycodone 5 mg tablet 5 mg PO Q4H PRN PRN Pain Score 6-10 7 days #30 tabs 02/27/23 sennosides 8.6 mg-docusate sodium 50 mg tablet (Stool Softener-Stimulant Laxative) 2 tab PO BID 30 days #120 tabs 02/27/23 Hospital Course Operations - (Left hip intramedullary nail fixation.) Procedures None Summary of Care Provided Minutes Spent on Discharge: 35 Hospital Course: 87 year old female with below past medical history hospitalized for left hip fracture, underwent left femur intramedullary nail fixation 02/13/[address] Andrews, admitted to TCU with debility, here for rehabilitation, strengthening, prior to discharge home. Discharge home alone 03/02/2023, [facility] PT/OT/OG. Physical Exam Const alert General Appearance: cooperative HEENT normocephalic Eyes PERRL and EOMs intact bilaterally Neck supple, no JVD and no carotid bruits Resp normal respiratory effort, normal air movement and clear to auscultation bilaterally Cardio regular rate and regular rhythm GI normal to inspection, nondistended, normoactive bowel sounds, non-tender and non-distended Extremity normal capillary refill General Extremity: Negative for edema Skin no rashes or lesions noted General Skin Exam: no breakdown Psych affect normal Appearance: appropriate Weight / BMI Weight Weight: 78.154 kg Body Mass Index (BMI) 30.5 ABG / Lab / Microbiology Data Result Diagrams: 02/25/23 05:18 02/25/23 05:18 Microbiology: Microbiology 02/24/23 05:17 Nasal Secretion SARS-CoV-2 Antigen (Rapid) - Final 02/21/23 06:48 Nasal Secretion SARS-CoV-2 Antigen (Rapid) - Final 02/19/23 09:35 Nasal Secretion SARS-CoV-2 Antigen (Rapid) - Final D/C Instructions Discharge Diet: No restrictions Discharge Activity: Return to Normal Activity, May Shower and Use Walker Weight Bearing Status: Weight bearing as tolerated Call your doctor if you observe: Fever of 101 or Higher, Inability to urinate, Inability to have a bowel movement, Shortness of breath, Dizziness, Fainting spells, Swelling in the ankles, Chest pain and Uncontrolled pain Additional Instructions: Discharge home alone 03/02/2023, [facility] Care PT/OT/OG. Please Follow Up With: Dr. Andrews When: As scheduled. Meaningful Use Info Meaningful Use Diagnoses (Choose all that apply): None applicable Discharge Plan Admission Admit Date/Time: 02/17/23 20:57 Primary Reason for Your Visit: Debility. Attending Provider: Sachin Zambrano Chi Primary Care Provider: Jessa Alberto Instructions Additional Instructions / Restrictions: Discharge home alone 03/02/2023, [facility] PT/OT/OG. Discharge Orders/Prescriptions Prescriptions: New acetaminophen 500 mg Tablet 1,000 mg PO TID Qty: 0 0RF amlodipine 5 mg Tablet 5 mg PO DAILY 30 Days Qty: 30 0RF calcium carbonate 200 mg calcium (500 mg) Tablet,Chewable 500 mg PO TIDCM Qty: 0 0RF sennosides-docusate sodium [Stool Softener-Stimulant Laxat] 8.6-50 mg Tablet 2 tab PO BID 30 Days Qty: 120 0RF oxycodone 5 mg Tablet 5 mg PO Q4H PRN PRN (Reason: Pain Score 6-10) 7 Days Qty: 30 0RF Continued levothyroxine 75 MCG tablet 75 mcg PO DAILY melatonin 3 mg Tablet 3 mg PO QHS PRN PRN (Reason: Insomnia) Qty: 0 0RF lisinopril 20 mg tablet 20 mg PO DAILY Discontinued oxycodone 5 mg Tablet 5 mg PO Q4H PRN PRN (Reason: Pain Score 8-10) 2 Days Qty: 8 0RF sennosides-docusate sodium [Stool Softener-Stimulant Laxat] 8.6-50 mg tablet 2 tab PO BID amlodipine 5 mg tablet 5 mg PO DAILY calcium carbonate 200 mg calcium (500 mg) tablet,chewable 500 mg PO TIDCM enoxaparin 40 mg/0.4 mL syringe 40 mg subcut DAILY@0600 No Action acetaminophen 500 mg tablet 1,000 mg PO Q6 Referrals / Follow Up: Jessa Alberto MD [Primary Care Provider] - Disposition Disposition (needs filled in before D/C Order can be placed): Home Health Service 02/27/23 1412 <Electronically signed by Sachin Zambrano MD> Cosigner Signature (if applicable): CC: Dr. Jessa Alberto MD; Dr. Sachin Zambrano MD~ Signed [facility] Work Phone: 1(972) 520-194504-06-[address] Zambrano [facility] February 19, 2023 2:46pm Note Date/Time February 19, 2023 2:31 pm [facility] Medical Records Department [address] [place] [address] Progress Note - Pharmacy 02/19/23 1426 MR#: [id number] Acct: [id number] Name: SARAH SCHMITZ Rep #:[id number] : 1935 87 From: Eliz Bernal PCP: Dr. Jessa Alberto MD Status:ADM IN Location: [place] [address] TCU RX Drug Regimen Review Subjective: 87 YOF admitted to TCU S/P hospitalization for a fall that lead to aL-hip fracture facilitating surgical repair. Admitted to TCU for rehabilitation and strengthening prior to discharge home where she resides alone. Objective: Allergies No Known Allergies Allergy (Verified 02/12/23 19:03) Current Medications Generic Name Dose Route Start Last Admin Trade Name Freq PRN Reason Stop Dose Admin Acetaminophen 1,000 mg 02/18/23 00:00 02/19/23 12:12 Acetaminophen 500 Mg Tablet PO 1,000 mg Q6 JOSE Administration Amlodipine Besylate 5 mg 02/18/23 06:00 02/19/23 06:00 Amlodipine 5 Mg Tablet PO 5 mg DAILY JOSE Administration Bisacodyl 10 mg 02/17/23 21:43 Bisacodyl 10 Mg Suppository RC X1 PRN Constipation Calcium Carbonate 500 mg 02/18/23 07:45 02/19/23 12:12 Calcium Carbonate 500 Mg Tablet PO 500 mg TIDCM JOSE Administration Enoxaparin Sodium 40 mg 02/18/23 06:00 02/19/23 06:00 Enoxaparin 40 Mg/0.4 Ml Syringe SC 40 mg DAILY@0600 JOSE Administration Sodium Chloride 250 mls @ 15 mls/hr 02/18/23 00:33 IV .[id number] PRN Saline Flush Sodium Chloride 250 mls @ 15 mls/hr 02/18/23 00:33 IV .[id number] PRN Additional IVPB Infusion Levothyroxine Sodium 75 mcg 02/18/23 06:00 02/19/23 06:00 Levothyroxine 75 Mcg Tablet PO 75 mcg DAILY JOSE Administration Lisinopril 20 mg 02/18/23 06:00 02/19/23 06:00 Lisinopril 20 Mg Tablet PO 20 mg DAILY JOSE Administration Magnesium Hydroxide 30 ml 02/17/23 21:43 Magnesium Hydroxide 30 Ml Udc PO X1 PRN Constipation Melatonin 3 mg 02/17/23 21:27 Melatonin 3 Mg Tablet PO QHS PRN PRN Insomnia Oxycodone HCl 5 mg 02/17/23 21:39 02/19/23 09:07 Oxycodone 5 Mg Tablet PO 5 mg Q4H PRN PRN Administration Pain Score 6-10 Senna/Docusate Sodium 2 tablet 02/18/23 06:00 02/19/23 06:00 Senna/Docusate Sodium 1 Tablet PO Not Given BID JOSE Sodium Chloride 10 - 40 ml 02/18/23 00:33 02/18/23 17:21 0.9% Saline Lock 10 Ml Syringe IV 10 ml UD PRN Administration SALINE FLUSH Tuberculin PPD 0.1 ml 02/25/23 10:00 Tuberculin,Purif.Prot.Deriv. 50 Tu/Ml Vial ID 02/25/23 10:01 X1 ONE Problem List (Last Reviewed 02/17/23 @ 21:[address] Sachin Zambrano MD) History of COVID-19 (Acute) History of pulmonary embolism (Acute) Hypertension (Chronic) Closed left hip fracture (Acute) Debility (Acute) Hypothyroidism (Acute) Vital Signs Temp Pulse Resp BP Pulse Ox O2 Del Method 97.0 F L 68 20 H 115/52 L 95 Room Air 02/18/23 14:22 02/18/23 14:22 02/18/23 14:22 02/18/23 14:22 02/18/23 21:45 02/19/23 10:00 Oxygen Delivery Method Room Air Weight: 78.5 kg Body Mass Index (BMI) 30.7 Sodium 137 mmol/L (136-145) 02/18/23 05:22 Potassium 3.6 mmol/L (3.5-5.1) 02/18/23 05:22 Chloride 103 mmol/L (98-107) 02/18/23 05:22 Carbon Dioxide 31.0 mmol/L (21.0-32.0) 02/18/23 05:22 Anion Gap 3 (5-15) L 02/18/23 05:22 BUN 17 mg/dL (7-18) 02/18/23 05:22 Creatinine 0.60 mg/dL (0.55-1.02) 02/18/23 05:22 Est GFR (MDRD) Af Amer 122 mL/min (>60) 02/18/23 05:22 Est GFR (MDRD) Non-Af 101 mL/min (>60) 02/18/23 05:22 BUN/Creatinine Ratio 28.4 RATIO (10-20) H 02/18/23 05:22 Glucose 171 mg/dL (74-106) H 02/18/23 05:22 Assessment/Plan: 1. Pain: Tylenol 1000mg PO Q6h, Oxycodone 5mg PO Q4h PRN Pain 6-10. Please continue to monitor for increased/decreased S/S pain, PRN medication usage, constipation and oversedation with narcotic usage. - To date, the patient has required one dose of PRN oxycodone. Pre- medicationpain rated 8/10, post-medication pain rated 0/10. It appears pain is being managed appropriately at this time. 2. HTN: Lisinopril 20mg PO Daily, Amlodipine 5mg PO Daily. Please continue to monitor BP (range 115-140/52-70), renal function, potassium (last 3.6 on 02/18), S/S LLE swelling. 3. Hypothyroidism: Synthroid 75mcg PO Daily. Please continue to monitor thyroid panels as clinically indicated (last TSH WNL on 02/13/23), S/S hypothyroidism. 4. DVT Prophylaxis: Lovenox 40mg SC Daily. Please continue to monitor for S/S bleeding/bruising, renal function (last CrCl 33mL/min on 02/18), H/H (last done 02/18). Please continue to monitor renal function closely, and adjust dose to 30mgSC daily should CrCl drop below 30mL/min, thank you. 5. Calcium Deficiency/ GERD: Tums 500mg PO TIDCM. Please continue to monitor Calcium levels, S/S GERD flare-ups. 6. Insomnia: Melatonin 3mg PO QHS PRN. Please continue to monitor for medicationeffectiveness. 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 7. Bowel: Senna/Docusate 2 tab PO BID, Dulcolax 10mg IN x1 PRN, MOM 30ml PO x1 PRN. Please continue to monitor for increased/decreased constipation and/or diarrhea. - To date, the patient does not have documented bowel movements. It appears the patient is refusing her scheduled Senna/Docusate doses. Please encourage patient to take scheduled medication to help facilitate a bowel movement to avoid significant constipation, especially given that she is using narcotic medications to help manage pain, thank you. Assessment/Plan for indications treated with psychotropic medications: The patient is not currently on any psychotropic medications at time of medication review. Medical chart and medication regimen reviewed. The following medication irregularities or issues were identified: No medication irregularities were identified at the time of medication review. Date of Note:: 02/19/23 02/19/23 1438 <Electronically signed by Eliz Bernal > Eliz Bernal Cosigner Signature (if applicable): 02/19/23 1446 <Electronically signed by Sachin Zambrano MD> CC: ~ Signed [facility] Work Phone: 1(583) 614-431404-05-2023 History and physical note Author Dr. Zambrano [facility] February 18, 2023 7:44am Note Date/Time February 17, 2023 9:35 pm [facility] Medical Records Department [address] [place] [address] History & Physical Exam 02/17/232125 MR#: [id number] Acct: [id number] Name: SARAH SCHMITZ Rep #:[id number] : 1935 87 From: Sachin Zambrano MD PCP: Dr. Jessa Alberto MD Status:ADM IN Location: [facility] TCU19-1 HPI - General General Date of Admission: 02/17/23 Date of Service: 02/18/23 Chief Complaint: Here for rehabilitation. HPI Narrative 02/12/2023 SARAH SCHMITZ, is a 87 Female who presents to [facility] Emergency Department with fall, left hip injury. 02/12/2023 EKG sinus rhythm with first degree AV block with premature atrial contractions, right bundle branch block. Fell, injured left hip, unable to get up. Chest X-ray negative. X-ray showed left hip fracture. Morphine given for pain. She was on Eliquis for pulmonary embolism, but she stopped it. 02/12/2023 Admit to Hospital. Pain control, prepare for surgery. 02/13/2023 Some pain. Was on Eliquis for pulmonary embolism secondary to covid19 in 2020. 02/13/2023 Dr. Andrews performed left femur intramedullary nail fixation. 02/14/2023 Pain controlled, wants to go home. 02/15/2023 Leg cramp, wants to go home, but open to [facility]. Hemoglobin 9.2, monitor. Lisinopril held, Amlodipine given for elevated creatinine. Blood pressure improving. 02/16/2023 PT/OT. 02/17/2023 Admit to TCU with debility, here for rehabilitation, strengthening, prior to discharge home alone. [facility] Medical History Acute hypoxemic respiratory failure Bilateral pulmonary embolism COVID-19 Hypertension Hypothyroidism Irritable bowel Overweight (BMI 25.0-29.9) Restless legs Home Medications levothyroxine 75 mcg tablet 75 mcg PO DAILY THYROID 05/17/17 [History Last Taken 09/29/19 0730] acetaminophen 500 mg tablet 1,000 mg PO Q6 Pain 02/17/23 [History Last Taken Unknown] amlodipine 5 mg tablet 5 mg PO DAILY Blood pressure 02/17/23 [History Last Taken Unknown] calcium carbonate 200 mg calcium (500 mg) chewable tablet 500 mg PO TIDCM Supplement 02/17/23 [History Last Taken Unknown] enoxaparin 40 mg/0.4 mL subcutaneous syringe 40 mg subcut DAILY@0600 Anticoagulant 02/17/23 [History Last Taken Unknown] lisinopril 20 mg tablet 20 mg PO DAILY Check with primary doctor 02/17/23 [History Last Taken Unknown] melatonin 3 mg tablet 3 mg PO QHS PRN PRN Insomnia #0 tabs 02/17/23 [Rx Last Taken Unknown] oxycodone 5 mg tablet 5 mg PO Q4H PRN PRN Pain Score 8-10 2 days #8 tabs 02/17/23 [Rx Last Taken Unknown] sennosides 8.6 mg-docusate sodium 50 mg tablet (Stool Softener-Stimulant Laxative) 2 tab PO BID Constipation 02/17/23 [History Last Taken Unknown] Allergy/AdvReac Type Severity Reaction Status Date / Time No Known Allergies Allergy Verified 02/12/23 19:03 Family History Mother Cancer Surgical History History of appendectomy S/P hysterectomy Social History household members: other details: Notes her son lives with her. Smoking Status: Never smoker alcohol intake: never substance use type: does not use ROS Constitutional Constitutional: Denies chills, fever(s) or weight gain ENT HEENT: Denies headache(s), nasal congestion or nasal discharge Cardiovascular Cardiovascular: Denies chest pain or palpitations Respiratory/Chest Respiratory/Chest: Denies cough, excessive phlegm production or shortness of breath with exertion Gastrointestinal Gastrointestinal: Denies abdominal pain, nausea or vomiting Genitourinary Genitourinary: Denies dysuria Musculoskeletal Musculoskeletal: Denies joint pain or joint swelling Integumentary Integumentary: Denies rash or wounds Neurologic Neurologic: Denies focal weakness, numbness or tingling Psychiatric Psychiatric: Denies anxiety, auditory hallucinations, depression, homicidal ideation or suicidal ideation Physical Exam Const alert General Appearance: cooperative HEENT normocephalic Eyes PERRL and EOMs intact bilaterally Neck supple, no JVD and no carotid bruits Resp normal respiratory effort, normal air movement and clear to auscultation bilaterally Cardio regular rate and regular rhythm GI normal to inspection, nondistended, normoactive bowel sounds, non-tender and non-distended Extremity normal capillary refill General Extremity: Negative for edema Skin no rashes or lesions noted General Skin Exam: no breakdown Psych affect normal Appearance: appropriate Results Lab / Micro Data Result Diagrams: 02/18/23 05:22 02/18/23 05:22 Assessment & Plan Assessment/Plan (1) Debility: (2) Closed left hip fracture: (3) Hypertension: (4) Hypothyroidism: (5) History of pulmonary embolism: (6) History of COVID-19: PLAN: Plan 87 year old female with below past medical history hospitalized for left hip fracture, underwent left femur intramedullary nail fixation 02/13/[address] Andrews, admitted to TCU with debility, here for rehabilitation, strengthening, prior to discharge home. * Debility - PT/OT. * Pain - Tylenol 1000mg q6, Oxycodone 5mg q4h prn pain (6-10). * Bowel - senna/colace 2 tablets bid, Dulcolax 10mg pr x 1 prn, MOM 30ml po x1 prn. * Adult immunization - Administer pneumonia vaccine, covid19 vaccine, flu vaccine as appropriate. * DVT prophylaxis - Lovenox 40mg sc daily. * Hypertension - Lisinopril 20mg daily, Amlodipine 5mg daily. * Calcium deficiency - TUMS 500mg tidcm. * Hypothyroidism - Levothyroxine 75mg daily. * Insomnia - Melatonin 3mg qhs prn. 02/18/23 0744 <Electronically signed by Sachin Zambrano MD> Cosigner Signature (if applicable): CC: Dr. Jessa Alberto MD; Dr. Sachin Zambrano MD~ Signed [facility] Work Phone: 1(150) 721-452104-04-[address] Nolasco [facility] February 17, 2023 2:36pm Note Date/Time February 17, 2023 2:35 pm [facility] Medical Records Department [address] [place] [address] Discharge Summary 02/17/23 1430 MR#: [id number] Acct: [id number] Name: SARAH SCHMITZ Rep #:[id number] : 1935 87 From: Otto Nolasco MD PCP: Dr. Jessa Alberto MD Status:ADM IN [place] [facility] [id number] Providers Date of Admission: 02/12/23 Date of Discharge: 02/17/23 Primary Care Physician: Dr. Jessa Alberto MD Consultations 02/13/23 00:42 Consult: Orthopedics Routine Consulting Provider: Jose Andrews Reason for Consult: Left intertrochanteric EMERGENT Consult: No MD Notified: Yes Date Notified: 02/12/23 Time Notified: 23:43 Method of Notification: ED Physician Initiated Reason For Visit: LEFT INTERTROCHANTERIC HIP FRACTURE Diagnosis Discharge Diagnosis (1) Closed intertrochanteric fracture of left femur: Status: Acute Code(s): S72.142A - Displaced intertrochanteric fracture of left femur, initial encounterfor closed fracture Plan Patient is an 87-year-old lady who presented with left hip pain following a fallfound to have comminuted intertrochanteric fracture of the left femur fracture. Patient underwent ORIF on 02/13/2023 1. Fall with Comminuted intertrochanteric fracture of the left femur ?Patient underwent reatment of intertrochanteric hip fracture with intramedullary nail left femur on 02/13/[address] Andrews. ? 02/17/2023 patient complained of spasms and left lower extremity. Awaiting insurance precertification prior to transfer to a half-way facility 2. Physical deconditioning secondary to above - Requested for PT OT eval and manager social media to assist with discharge planning 3. 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 Hypertension - Blood pressure controlled, home medications continued with dose adjustment as needed 5. Hypothyroidism - Patient is on levothyroxine home dose continued 6. DVT prophylaxis - On enoxaparin 7. Anemia ? Secondary to combination of anemia of chronic disorder as well as acute blood loss anemia following surgery monitoring H&H with plans to transfuse if hemoglobin falls below 7 or patient becomes symptomatic Time spent in the patient's overall evaluation,decision-making process, review of diagnostic data, adjustment of management, discussion with other providers, nursing nursing and ancillary staff involved in patient's care documentation, 38 Minutes Medications at Discharge Home Medications levothyroxine 75 mcg tablet 75 mcg PO DAILY THYROID 05/17/17 lisinopril 20 mg tablet 20 mg PO DAILY #30 tabs 10/19/21 acetaminophen 500 mg tablet 1,000 mg PO Q6 #0 tabs 02/17/23 amlodipine 5 mg tablet 5 mg PO DAILY #0 tabs 02/17/23 calcium carbonate 200 mg calcium (500 mg) chewable tablet 500 mg PO TIDCM #0 tabs 02/17/23 enoxaparin 40 mg/0.4 mL subcutaneous syringe 40 mg (0.4 mL) subcut DAILY@0600 30days #0 mL 02/17/23 melatonin 3 mg tablet 3 mg PO QHS PRN PRN Insomnia #0 tabs 02/17/23 oxycodone 5 mg tablet 5 mg PO Q4H PRN PRN Pain Score 8-10 2 days #8 tabs 02/17/23 sennosides 8.6 mg-docusate sodium 50 mg tablet (Stool Softener-Stimulant Laxative) 2 tab PO BID #0 tabs 02/17/23 Hospital Course Summary of Care Provided Minutes Spent on Discharge: 38 Physical Exam Narrative GENERAL: cooperative HEENT: Atraumatic; normocephalic EYES; Anicteric, Normal Conjunctiva NECK; supple, normal thyroid, RESPIRATORY: Diminished to auscultation CARDIOVASCULAR: Regular S1 S2, GI: soft, normoactive bowel sounds, : No Renal angle tenderness; EXTREMITIES: No edema, no clubbing, MUSCULOSKELETAL: no muscle wasting NEURO: Awake; no lateralizing signs. SKIN: No Rash PSYCH; Flat affect Weight / BMI Weight Weight: 74.8 kg Body Mass Index (BMI) 29.2 ABG / Lab / Microbiology Data Result Diagrams: 02/17/23 06:15 02/17/23 06:15 Laboratory: Laboratory Results - last 24 hr 02/17/23 06:15: WBC 9.1, RBC 2.96 L, Hgb 9.1 L, Hct 28.3 L, MCV 95.6, MCH 30.7, MCHC 32.2, RDW Std Deviation 44.2 H, RDW Coeff of Marguerite 12.9, Plt Count 253, MPV 10.5, Immature Gran % (Auto) 1.000 H, Neut % (Auto) 65.4, Lymph % (Auto) 20.9, [place] % (Auto) 8.0, Eos % (Auto) 4.0, Baso % (Auto) 0.7, Absolute Neuts (auto) 5.9, Absolute Lymphs (auto) 1.89, Nucleated RBC % 0.4 02/17/23 06:15: Sodium 140, Potassium 3.6, Chloride 105, Carbon Dioxide 32.0, Anion Gap 3 L, BUN 16, Creatinine 0.59, Estim Creat Clear Calc 33.41, Est GFR (MDRD) Af Amer 124, Est GFR (MDRD) Non-Af 103, BUN/Creatinine Ratio 27.1 H, Glucose 166 H, Calcium 8.2 L D/C Instructions Discharge Diet: No restrictions Discharge Activity: Return to Normal Activity Call your doctor if you observe: Fever of 101 or Higher, Shortness of breath, Fainting spells and Chest pain Meaningful Use Info Meaningful Use Diagnoses (Choose all that apply): None applicable Discharge Plan Admission Admit Date/Time: 02/12/23 23:33 Primary Reason for Your Visit: Left leg pain Attending Provider: Otto Nolasco Primary Care Provider: Jessa Alberto Consulting Providers: Romie Walsh ; Jose Andrews ; Sara Lorenzo Instructions Patient Instructions: ED Fall Prevention Additional Instructions / Restrictions: DISCHARGE INSTRUCTIONS PLEASE READ *Please take this with you to your next doctors appointment* -You will need to follow-up with Dr. Andrews in the office in 2 weeks and you will need x-rays in 2 weeks as well. - Would recommend lab work (BMP) to check your kidney function in 3 to 5 days through your primary care physician's office. Please call their office upon discharge to obtain order for lab work. -Your lisinopril was stopped due to slight bump in your kidney function and you have been prescribed amlodipine. Please follow-up with your primary care physician as your medications may change further depending on your kidney function in the future and follow-up blood pressure -Please call your primary care provider's office upon discharge to schedule a hospital follow up within 1 week. -For any concerning signs or symptoms please call 911 or proceed to the nearest emergency department Discharge Orders/Prescriptions Prescriptions: New sennosides-docusate sodium [Stool Softener-Stimulant Laxat] 8.6-50 mg Tablet 2 tab PO BID Qty: 0 0RF oxycodone 5 mg Tablet 5 mg PO Q4H PRN PRN (Reason: Pain Score 8-10) 2 Days Qty: 8 0RF melatonin 3 mg Tablet 3 mg PO QHS PRN PRN (Reason: Insomnia) Qty: 0 0RF acetaminophen 500 mg Tablet 1,000 mg PO Q6 Qty: 0 0RF amlodipine 5 mg Tablet 5 mg PO DAILY Qty: 0 0RF calcium carbonate 200 mg calcium (500 mg) Tablet,Chewable 500 mg PO TIDCM Qty: 0 0RF enoxaparin 40 mg/0.4 mL Syringe 40 mg subcut DAILY@0600 30 Days Qty: 0 0RF Continued levothyroxine 75 MCG tablet 75 mcg PO DAILY lisinopril 20 mg Tablet 20 mg PO DAILY Qty: 30 0RF Discontinued Eliquis 5 mg Tablet 5 mg PO BID Qty: 60 2RF Rx Instructions: Start on 10/26/2021 dexamethasone [Decadron] 6 mg tablet 6 mg PO DAILY Qty: 2 0RF Referrals / Follow Up: Jessa Alberto MD [Primary Care Provider] - Jose Andrews DO [Med Staff - Active Staff] - 02/27/23 Disposition Disposition (needs filled in before D/C Order can be placed): Long-Term Facility Charges/Coding Visit Charges Inpatient E&M: 29240 Disch Hosp >30min 02/17/23 1436 <Electronically signed by Otto Nolasco MD> Cosigner Signature (if applicable): CC: Dr. Otto Nolasco MD; Dr. Jessa Alberto MD~ Signed [facility] Work Phone: 1(790) 768-363804-04-[address] Nolasco [facility] February 17, 2023 2:27pm Note Date/Time February 17, 2023 2:27 pm [facility] Medical Records Department [address] [place] [address] Transfer to [facility] MR#: [id number] Acct: [id number] Name: SARAH SCHMITZ Rep #:[id number] : 1935 87 From: Otto Nolasco MD PCP: Dr. Jessa Alberto MD Status:ADM IN Certification of patient admission REQUIRED AT TIME OF ADMISSION. I CERTIFY THAT POST-HOSPITAL F SERVICES ARE REQUIRED TO BE GIVEN ON AN IN-PATIENT BASIS BECAUSE OF THE ABOVE NAMED PATIENT'S NEED FOR [facility] CARE ON A CONTINUING BASIS FOR THE CONDITION(S) FOR WHICH HE/SHE WAS RECEIVING IN-PATIENT HOSPITAL SERVICES PRIOR TO HIS/HER TRANSFER TO THE [facility]. 02/17/23 1427<Electronically signed by Otto Nolasco MD> Diet Diet Order/Speech Therapy: 02/14/23 06:05 Diet: Regular - General Is pt able to select menu?: Yes Wound(s) LEFT HIP: Wound Type: Surgical Incision Therapies Weight Bearing: Weight bearing as tolerated Physical Therapy: Eval and Treat Occupational Therapy: Eval and Treat Problem/Diagnosis (1) Closed intertrochanteric fracture of left femur: Status: Acute Code(s): S72.142A - Displaced intertrochanteric fracture of left femur, initial encounterfor closed fracture Plan Patient is an 87-year-old lady who presented with left hip pain following a fallfound to have comminuted intertrochanteric fracture of the left femur fracture. Patient underwent ORIF on 02/13/2023 1. Fall with Comminuted intertrochanteric fracture of the left femur ?Patient underwent reatment of intertrochanteric hip fracture with intramedullary nail left femur on 02/13/[address] Andrews. ? 02/17/2023 patient complained of spasms and left lower extremity. Awaiting insurance precertification prior to transfer to a half-way facility 2. Physical deconditioning secondary to above - Requested for PT OT eval and manager social media to assist with discharge planning 3. 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 Hypertension - Blood pressure controlled, home medications continued with dose adjustment as needed 5. Hypothyroidism - Patient is on levothyroxine home dose continued 6. DVT prophylaxis - On enoxaparin 7. Anemia ? Secondary to combination of anemia of chronic disorder as well as acute blood loss anemia following surgery monitoring H&H with plans to transfuse if hemoglobin falls below 7 or patient becomes symptomatic Time spent in the patient's overall evaluation,decision-making process, review of diagnostic data, adjustment of management, discussion with other providers, nursing nursing and ancillary staff involved in patient's care documentation, 38 Minutes Allergies/Procedures Done in Hospital Allergies No Known Allergies Allergy (Verified 02/12/23 19:03) Type of Care/Length of Stay Estimated LOS: Convalescent Care Less Than 30 days Type of Care Needed: Skilled Rehab Potential: Good Prognosis: Good Additional Orders/Day of Discharge Day of Discharge: 02/17/23 Dietary and Speech Recommendations Dietitian Recommendations/Changes: Will continue regular diet Discharge Plan Admission Admit Date/Time: 02/12/23 23:33 Primary Reason for Your Visit: Left leg pain Attending Provider: Otto Nolasco Primary Care Provider: Jessa Alberto Consulting Providers: Romie Walsh ; Jose Andrews ; Sara Lorenzo Instructions Patient Instructions: ED Fall Prevention Additional Instructions / Restrictions: DISCHARGE INSTRUCTIONS PLEASE READ *Please take this with you to your next doctors appointment* -You will need to follow-up with Dr. Andrews in the office in 2 weeks and you will need x-rays in 2 weeks as well. - Would recommend lab work (BMP) to check your kidney function in 3 to 5 days through your primary care physician's office. Please call their office upon discharge to obtain order for lab work. -Your lisinopril was stopped due to slight bump in your kidney function and you have been prescribed amlodipine. Please follow-up with your primary care physician as your medications may change further depending on your kidney function in the future and follow-up blood pressure -Please call your primary care provider's office upon discharge to schedule a hospital follow up within 1 week. -For any concerning signs or symptoms please call 911 or proceed to the nearest emergency department Discharge Orders/Prescriptions Prescriptions: New sennosides-docusate sodium [Stool Softener-Stimulant Laxat] 8.6-50 mg Tablet 2 tab PO BID Qty: 0 0RF oxycodone 5 mg Tablet 5 mg PO Q4H PRN PRN (Reason: Pain Score 8-10) 2 Days Qty: 8 0RF melatonin 3 mg Tablet 3 mg PO QHS PRN PRN (Reason: Insomnia) Qty: 0 0RF acetaminophen 500 mg Tablet 1,000 mg PO Q6 Qty: 0 0RF amlodipine 5 mg Tablet 5 mg PO DAILY Qty: 0 0RF calcium carbonate 200 mg calcium (500 mg) Tablet,Chewable 500 mg PO TIDCM Qty: 0 0RF enoxaparin 40 mg/0.4 mL Syringe 40 mg subcut DAILY@0600 30 Days Qty: 0 0RF Continued levothyroxine 75 MCG tablet 75 mcg PO DAILY lisinopril 20 mg Tablet 20 mg PO DAILY Qty: 30 0RF Discontinued Eliquis 5 mg Tablet 5 mg PO BID Qty: 60 2RF Rx Instructions: Start on 10/26/2021 dexamethasone [Decadron] 6 mg tablet 6 mg PO DAILY Qty: 2 0RF Referrals / Follow Up: Jessa Alberto MD [Primary Care Provider] - Jose Andrews DO [Med Staff - Active Staff] - 02/27/23 Disposition Disposition (needs filled in before D/C Order can be placed): Long-Term Facility 02/17/23 1427 <Electronically signed by Otto Nolasco MD> Cosigner Signature (if applicable): CC: Dr. Jessa Alberto MD; Dr. Romie Walsh MD; Dr. Jose Andrews DO; Dr. Sara Lorenzo MD ~ [facility] Work Phone: [phone]) 872-485004-04-[address] Nolasco [facility] February 17, 2023 8:40am Note Date/Time February 17, 2023 7:32 am [facility] Medical Records Department [address] [place] [address] Progress Note - Hospitalist 02/17/23 0732 MR#: [id number] Acct: [id number] Name: SARAH SCHMITZ Rep #:[id number] : 1935 87 From: Otto Nolasco MD PCP: Dr. Jessa Alberto MD Status:ADM IN Location: [place] [id number] Reason for Visit Reason for Visit: Diagnoses Hypothyroidism, unspecified (02/12/23) Essential (primary) hypertension (02/12/23) Displaced intertrochanteric fracture of left femur, initial encounter for closedfracture (02/12/23) Subjective Subjective Patient seen complains of spasms in lower extremities. Awaiting insurance precertification prior to transfer to half-way facility Objective Data Objective Data Vital Signs: Vital Signs Temp Pulse Resp BP Pulse Ox O2 Del Method O2 Flow Rate 98 F 94 18 144/74 H 94 Room Air 2 02/17/23 02:47 02/17/23 02:47 02/17/23 02:47 02/17/23 02:47 02/17/23 02:47 02/17/23 02:47 02/16/23 04:40 Oxygen Flow Rate (L/min) 2 Oxygen Delivery Method Room Air Weight: 74.8 kg Body Mass Index (BMI) 29.2 Intake & Output: Intake and Output for Last 24 Hours 02/15/23 02/16/23 02/17/23 23:59 23:59 23:59 Intake Total 2295.5 / 2295.5 656.5 / 856.5 300 / 300 Output Total 500 / 500 500 / 500 500 / 500 Balance 1795.5 / 1795.5 156.5 / 356.5 -200 / -200 Lab / Micro Data Result Diagrams: 02/17/23 06:15 02/17/23 06:15 Labs: Laboratory Results - last 24 hr 02/17/23 06:15: WBC 9.1, RBC 2.96 L, Hgb 9.1 L, Hct 28.3 L, MCV 95.6, MCH 30.7, MCHC 32.2, RDW Std Deviation 44.2 H, RDW Coeff of Marguerite 12.9, Plt Count 253, MPV 10.5, Immature Gran % (Auto) 1.000 H, Neut % (Auto) 65.4, Lymph % (Auto) 20.9, [place] % (Auto) 8.0, Eos % (Auto) 4.0, Baso % (Auto) 0.7, Absolute Neuts (auto) 5.9, Absolute Lymphs (auto) 1.89, Nucleated RBC % 0.4 02/17/23 06:15: Sodium 140, Potassium 3.6, Chloride 105, Carbon Dioxide 32.0, Anion Gap 3 L, BUN 16, Creatinine 0.59, Estim Creat Clear Calc 33.41, Est GFR (MDRD) Af Amer 124, Est GFR (MDRD) Non-Af 103, BUN/Creatinine Ratio 27.1 H, Glucose 166 H, Calcium 8.2 L Physical Exam Narrative GENERAL: cooperative HEENT: Atraumatic; normocephalic EYES; Anicteric, Normal Conjunctiva NECK; supple, normal thyroid, RESPIRATORY: Diminished to auscultation CARDIOVASCULAR: Regular S1 S2, GI: soft, normoactive bowel sounds, : No Renal angle tenderness; EXTREMITIES: No edema, no clubbing, MUSCULOSKELETAL: no muscle wasting NEURO: Awake; no lateralizing signs. SKIN: No Rash PSYCH; Flat affect Assessment & Plan Assessment/Plan (1) Closed intertrochanteric fracture of left femur: PLAN: Plan Patient is an 87-year-old lady who presented with left hip pain following a fallfound to have comminuted intertrochanteric fracture of the left femur fracture. Patient underwent ORIF on 02/13/2023 1. Fall with Comminuted intertrochanteric fracture of the left femur ?Patient underwent reatment of intertrochanteric hip fracture with intramedullary nail left femur on 02/13/[address] Andrews. ? 02/17/2023 patient complained of spasms and left lower extremity. Awaiting insurance precertification prior to transfer to a half-way facility 2. Physical deconditioning secondary to above - Requested for PT OT eval and manager social media to assist with discharge planning 3. 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 Hypertension - Blood pressure controlled, home medications continued with dose adjustment as needed 5. Hypothyroidism - Patient is on levothyroxine home dose continued 6. DVT prophylaxis - On enoxaparin 7. Anemia ? Secondary to combination of anemia of chronic disorder as well as acute blood loss anemia following surgery monitoring H&H with plans to transfuse if hemoglobin falls below 7 or patient becomes symptomatic Time spent in the patient's overall evaluation,decision-making process, review of diagnostic data, adjustment of management, discussion with other providers, nursing nursing and ancillary staff involved in patient's care documentation, 38 Minutes Charges/Coding Visit Charges Inpatient E&M: 23355 Subs Hosp L2 02/17/23 0840 <Electronically signed by Otto Nolasco MD> Cosigner Signature (if applicable): CC: ~ Signed [facility] Work Phone: 1(299) 358-887904-03-[address] Nolasco [facility] February 16, 2023 9:33am Note Date/Time February 16, 2023 9:24 am [facility] Medical Records Department [address] [place] [address] Progress Note - Hospitalist 02/16/2323 MR#: [id number] Acct: [id number] Name: SARAH SCHMITZ Rep #:[id number] : 1935 87 From: Otto Nolasco MD PCP: Dr. Jessa Alberto MD Status:ADM IN Location[place] [facility] [id number] Reason for Visit Reason for Visit: Diagnoses Hypothyroidism, unspecified (02/12/23) Essential (primary) hypertension (02/12/23) Displaced intertrochanteric fracture of left femur, initial encounter for closedfracture (02/12/23) Subjective Subjective Patient is an 87-year-old lady who presented with left hip pain following a fallfound to have comminuted intertrochanteric fracture of the left femur fracture. Patient underwent ORIF on 02/13/2023 Objective Data Objective Data Vital Signs: Vital Signs Temp Pulse Resp BP Pulse Ox O2 Del Method O2 Flow Rate 98.5 F 92 16 154/77 H 94 Nasal Cannula 2 02/16/23 04:40 02/16/23 04:40 02/16/23 04:40 02/16/23 04:40 02/16/23 04:40 02/16/23 04:40 02/16/23 04:40 Oxygen Flow Rate (L/min) 2 Oxygen Delivery Method Nasal Cannula Weight: 74.8 kg Body Mass Index (BMI) 29.2 Intake & Output: Intake and Output for Last 24 Hours 02/14/23 02/15/23 02/16/23 23:59 23:59 23:59 Intake Total 2586 / 2886 2295.5 / 2295.5 56.5 / 56.5 Output Total 1000 / 1000 500 / 500 200 / 200 Balance 1586 / 1886 1795.5 / 1795.5 -143.5 / -143.5 Lab / Micro Data Result Diagrams: 02/16/23 05:48 02/16/23 05:48 Labs: Laboratory Results - last 24 hr 02/15/23 14:05: WBC 12.9 H, RBC 3.02 L, Hgb 9.3 L, Hct 29.4 L, MCV 97.4, MCH 30.8, MCHC 31.6 L, RDW Std Deviation 45.9 H, RDW Coeff of Marguerite 12.9, Plt Count 222, MPV 10.9, Immature Gran % (Auto) 0.500, Neut % (Auto) 74.7 H, Lymph % (Auto) 17.3 L, [place] % (Auto) 6.1, Eos % (Auto) 0.9, Baso % (Auto) 0.5, Absolute Neuts (auto) 9.6 H, Absolute Lymphs (auto) 2.23, Nucleated RBC % 0 02/16/23 05:48: WBC 9.6, RBC 2.89 L, Hgb 9.1 L, Hct 27.8 L, MCV 96.2, MCH 31.5, MCHC 32.7, RDW Std Deviation 44.8 H, RDW Coeff of Marguerite 12.8, Plt Count 211, MPV 10.8, Immature Gran % (Auto) 0.700, Neut % (Auto) 67.1, Lymph % (Auto) 23.5, [place] % (Auto) 6.1, Eos % (Auto) 2.2, Baso % (Auto) 0.4, Absolute Neuts (auto) 6.4, Absolute Lymphs (auto) 2.26, Nucleated RBC % 0 02/16/23 05:48: Sodium 140, Potassium 3.5, Chloride 104, Carbon Dioxide 31.0, Anion Gap 5, BUN 17, Creatinine 0.69, Estim Creat Clear Calc 33.41, Est GFR (MDRD) Af Amer 104, Est GFR (MDRD) Non-Af 86, BUN/Creatinine Ratio 24.7 H, Glucose 178 H, Calcium 8.1 L Physical Exam Narrative GENERAL: cooperative HEENT: Atraumatic; normocephalic EYES; Anicteric, Normal Conjunctiva NECK; supple, normal thyroid, RESPIRATORY: Diminished to auscultation CARDIOVASCULAR: Regular S1 S2, GI: soft, normoactive bowel sounds, : No Renal angle tenderness; EXTREMITIES: No edema, no clubbing, MUSCULOSKELETAL: no muscle wasting NEURO: Awake; no lateralizing signs. SKIN: No Rash PSYCH; Flat affect Assessment & Plan Assessment/Plan (1) Closed intertrochanteric fracture of left femur: PLAN: Plan Patient is an 87-year-old lady who presented with left hip pain following a fallfound to have comminuted intertrochanteric fracture of the left femur fracture. Patient underwent ORIF on 02/13/2023 1. Fall with Comminuted intertrochanteric fracture of the left femur ?Patient underwent reatment of intertrochanteric hip fracture with intramedullary nail left femur on 02/13/[address] Andrews. 2. Physical deconditioning secondary to above - Requested for PT OT eval and manager social media to assist with discharge planning 3. 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 Hypertension - Blood pressure controlled, home medications continued with dose adjustment as needed 5. Hypothyroidism - Patient is on levothyroxine home dose continued 6. DVT prophylaxis - On enoxaparin Time spent in the patient's overall evaluation,decision-making process, review of diagnostic data, adjustment of management, discussion with other providers, nursing nursing and ancillary staff involved in patient's care documentation, 38 Minutes Charges/Coding Visit Charges Inpatient E&M: 01031 Subs Hosp L2 02/16/23 0933 <Electronically signed by Otto Nolasco MD> Cosigner Signature (if applicable): CC: ~ Signed [facility] Work Phone: 1(454) 619-599504-02-[address] Andrews [facility] February 15, 2023 11:56am Note Date/Time February 15, 2023 11:5 6am [facility] Medical Records Department [address] [place] [address] Progress Note - Orthopedic 02/15/23 1152 MR#: [id number] Acct: [id number] Name: SARAH SCHMITZ Rep #:[id number] : 1935 87 From: Jose smith DO PCP: Dr. Jessa Alberto MD Status:ADM IN [id number] Subjective Subjective Patient seen and examined. Reports some cramping this morning in her left leg, since resolved since been out of bed. Denies any new complaints otherwise. Denies fevers, chills, nausea vomiting, chest pain or shortness of breath. Patient in agreement with half-way facility placement. Objective Data Objective Data Vital Signs: Vital Signs Temp Pulse Resp BP Pulse Ox O2 Del Method O2 Flow Rate 98.4 F 81 18 148/59 H 93 Room Air 1 02/15/23 08:30 02/15/23 08:30 02/15/23 08:30 02/15/23 08:30 02/15/23 08:30 02/15/23 08:30 02/14/23 10:31 Oxygen Flow Rate (L/min) 1 Oxygen Delivery Method Room Air Weight: 164 lb 14.492 oz Body Mass Index (BMI) 29.2 Intake & Output: Intake and Output for Last 24 Hours 02/13/23 02/14/23 02/15/23 23:59 23:59 23:59 Intake Total 2850 / 2850 2586 / 2886 1550 / 1550 Output Total 1750 / 1750 1000 / 1000 500 / 500 Balance 1100 / 1100 1586 / 1886 1050 / 1050 Lab / Micro Data Attestation: I reviewed the patient's lab results. Result Diagrams: 02/15/23 05:30 02/15/23 05:30 Labs: Laboratory Results - last 24 hr 02/15/23 05:30: WBC 11.3 H, RBC 2.94 L, Hgb 9.2 L, Hct 28.0 L, MCV 95.2, MCH 31.3, MCHC 32.9, RDW Std Deviation 44.1 H, RDW Coeff of Marguerite 12.7, Plt Count 191,MPV 11.1, Immature Gran % (Auto) 0.500, Neut % (Auto) 73.4 H, Lymph % (Auto) 17.8 L, [place] % (Auto) 7.6, Eos % (Auto) 0.4, Baso % (Auto) 0.3, Absolute Neuts (auto) 8.3 H, Absolute Lymphs (auto) 2.01, Nucleated RBC % 0 02/15/23 05:30: Sodium 140, Potassium 3.5, Chloride 104, Carbon Dioxide 31.0, Anion Gap 5, BUN 18, Creatinine 0.57, Estim Creat Clear Calc 33.41, Est GFR (MDRD) Af Amer 129, Est GFR (MDRD) Non-Af 107, BUN/Creatinine Ratio 31.6 H, Glucose 158 H, Calcium 8.4 L Radiography Diagnostic Testing: Radiology Impression Hip X-Ray 02/13/23 16:30 IMPRESSION: 1. Multiple intraoperative images submitted for intramedullary fixation of a proximal femur fracture. 2. Please see surgical report for full details. Electronically Signed: Kalia Pritchett MD at 0:15 EDT , Physical Exam Narrative General - A&Ox3, NAD. VSS/AF Left lower extremity -serosanguineous drainage proximally, otherwise incisional dressings C/D/I. SILT Sural, Saphenous, SPN, DPN, Tibial N. distributions. DP, PT 2+. BCR. DF, PF, EHL 5/5. No calf TTP. Assessment & Plan Assessment/Plan (1) Closed intertrochanteric fracture of left femur: PLAN: POD#2 s/p left femur CMN - Patient doing well this morning. Acute blood loss anemia noted, suspect to besomewhat dilutional without overt signs of bleeding. Continue to mobilize with therapy. - Pain control - Medicine following for medical management - PT/OT-weightbearing as tolerated left lower extremity - DVT PPX -Lovenox x 4 weeks postop, SCDs, MICHELLE gilbert, early mobilization - Case management - D/C planning. SNF placement pending. Patient stable from orthopedic standpoint. Okay for discharge to half-way facility when approved from my standpoint. Plan to follow-up approximately 2 weeks status post surgery. Dry sterile dressing changes daily. Okay to leave open to air after postoperative day #7 if no drainage. X-rays andstaple removal at time of first follow-up. Continue Lovenox postoperatively x4 weeks. Weight-bear as tolerated left lower extremity with a walker. Please do not hesitate to call if any questions or concerns arise. 02/15/23 1156 <Electronically signed by Jose Andrews DO> Cosigner Signature (if applicable): CC: ~ Signed [facility] Work Phone: 1(544) 534-617404-02-[address] Lorenzo [facility] February 15, 2023 9:08am Note Date/Time February 15, 2023 9:08 am [facility] Medical Records Department [address] [place] [address] Progress Note - Hospitalist 02/15/23 0900 MR#: [id number] Acct: [id number] Name: SARAH SCHMITZ Rep #:[id number] : 1935 87 From: Sara Lorenzo MD PCP: Dr. Jessa Alberto MD Status:ADM IN Location: [facility] Reason for Visit Reason for Visit: Diagnoses Hypothyroidism, unspecified (02/12/23) Essential (primary) hypertension (02/12/23) Displaced intertrochanteric fracture of left femur, initial encounter for closedfracture (02/12/23) Subjective Subjective Reports some cramping in her leg today and that she took Tylenol earlier due to the discomfort. Feels she worked well with physical therapy. Endorses she would still prefer to go home but is open to discussing going to [facility]. Reports she is urinating well and had a bowel movement. Did not endorse any other complaints Objective Data Objective Data Vital Signs: Vital Signs Temp Pulse Resp BP Pulse Ox O2 Del Method O2 Flow Rate 98.3 F 86 18 138/78 H 93 Room Air 1 02/15/23 03:38 02/15/23 03:38 02/15/23 03:38 02/15/23 03:38 02/15/23 07:36 02/15/23 07:36 02/14/23 10:31 Oxygen Flow Rate (L/min) 1 Oxygen Delivery Method Room Air Weight: 74.8 kg Body Mass Index (BMI) 29.2 Intake & Output: Intake and Output for Last 24 Hours 02/13/23 02/14/23 02/15/23 23:59 23:59 23:59 Intake Total 2850 / 2850 2586 / 2886 1550 / 1550 Output Total 1750 / 1750 1000 / 1000 500 / 500 Balance 1100 / 1100 1586 / 1886 1050 / 1050 Lab / Micro Data Result Diagrams: 02/15/23 05:30 02/15/23 05:30 Labs: Laboratory Results - last 24 hr 02/15/23 05:30: WBC 11.3 H, RBC 2.94 L, Hgb 9.2 L, Hct 28.0 L, MCV 95.2, MCH 31.3, MCHC 32.9, RDW Std Deviation 44.1 H, RDW Coeff of Marguerite 12.7, Plt Count 191,MPV 11.1, Immature Gran % (Auto) 0.500, Neut % (Auto) 73.4 H, Lymph % (Auto) 17.8 L, [place] % (Auto) 7.6, Eos % (Auto) 0.4, Baso % (Auto) 0.3, Absolute Neuts (auto) 8.3 H, Absolute Lymphs (auto) 2.01, Nucleated RBC % 0 02/15/23 05:30: Sodium 140, Potassium 3.5, Chloride 104, Carbon Dioxide 31.0, Anion Gap 5, BUN 18, Creatinine 0.57, Estim Creat Clear Calc 33.41, Est GFR (MDRD) Af Amer 129, Est GFR (MDRD) Non-Af 107, BUN/Creatinine Ratio 31.6 H, Glucose 158 H, Calcium 8.4 L Radiography Diagnostic Testing: Radiology Impression Hip X-Ray 02/13/23 16:30 IMPRESSION: 1. Multiple intraoperative images submitted for intramedullary fixation of a proximal femur fracture. 2. Please see surgical report for full details. Electronically Signed: Kalia Pritchett MD at 0:15 EDT , Physical Exam Narrative General: Alert, oriented, no apparent distress HEENT: Atraumatic, normocephalic Eyes: Anicteric, normal conjunctiva, extraocular movements grossly intact Neck: Supple Respiratory: Clear to auscultation bilaterally, normal respiratory effort Cardiovascular: Regular rate and rhythm GI: Soft, nontender, nondistended Extremities: No edema Musculoskeletal: Moving all extremities Neuro: No overt focal neurological deficits Skin: No rashes appreciated Psych: Cooperative Assessment & Plan Assessment/Plan (1) Closed intertrochanteric fracture of left femur: PLAN: Plan #Comminuted intertrochanteric fracture of the left femur -Seen on hip and pelvis x-ray. Pain control -Orthopedic surgery consulted -Patient to proceed for surgery -Plan for surgery later today -02/14: Postop day 1 from left femur CMN. PT to evaluate today. Patient insistent that she feels well and will be going home today. Awaiting PT evaluation -02/15: PT recommended further rehab, patient open to considering [facility], unclear if this is in her network but social work discussed with her yesterday and advised that tomorrow this can be further looked into. That is the only place at this moment she is willing to go as her granddaughter works there. Still would prefer to go home but is weak and lives alone, would greatly benefitfrom rehab prior to home-going. On discharge she will need to follow-up with Dr. Andrews in 2 weeks in the office with x-rays #Anemia -Hemoglobin on presentation was 14.7 and the following day 11.7, 11.1 on day of surgery but on 4/2 was 9.2. No overt signs or symptoms of bleeding -At least in part is delusional given creatinine went from 1.14 down to 0.57 andall cell lines on CBC decreased today. We will hold fluids now that she is volume repleted and recheck CBC this afternoon to verify no further drop #History of PE -Seems to have been in 2020 and was thought to be provoked due to COVID -Has been off of Eliquis recently without difficulty #Hypertension -Continue lisinopril -Not at goal presently but might in part be due to pain -Will adjust medications as necessary -02/14: Slight increase in creatinine that does not meet criteria for an KATELYN, willgive a small bolus and hold lisinopril and substitute for amlodipine. If patient leaves today can likely have labs checked as an outpatient -02/15: BP improving #Hypothyroidism -Continue Synthroid #DVT prophylaxis: Lovenox Charges/Coding Visit Charges Inpatient E&M: 95730 Subs Hosp L2 02/15/23 0908 <Electronically signed by Sara Lorenzo MD> Cosigner Signature (if applicable): CC: ~ Signed [facility] Work Phone: 1(814) 263-900904-01-[address] Lorenzo [facility] February 14, 2023 10:04am Note Date/Time February 14, 2023 10:0 1am [facility] Medical Records Department [address] [place] [address] Progress Note - Hospitalist 02/14/23 1000 MR#: [id number] Acct: [id number] Name: SARAH SCHMITZ Nolan Rep #:[id number] : 1935 87 From: Sara Lorenzo MD PCP: Dr. Jessa Alberto MD Status:ADM IN Location: [place] [address] Reason for Visit Reason for Visit: Diagnoses Hypothyroidism, unspecified (02/12/23) Essential (primary) hypertension (02/12/23) Displaced intertrochanteric fracture of left femur, initial encounter for closedfracture (02/12/23) Subjective Subjective Reports feeling fairly well today without significant pain despite not taking any pain medication. Patient insistent she will be discharged home today and that she feels well and has a bedroom and bathroom on the first floor and has people that would be able to help her. Objective Data Objective Data Vital Signs: Vital Signs Temp Pulse Resp BP Pulse Ox O2 Del Method O2 Flow Rate 97.7 F L 89 18 123/61 H 96 Room Air 2 02/14/23 07:49 02/14/23 07:49 02/14/23 07:49 02/14/23 07:49 02/14/23 09:50 02/14/23 09:50 02/14/23 04:15 Oxygen Flow Rate (L/min) 2 Oxygen Delivery Method Room Air Weight: 74.8 kg Body Mass Index (BMI) 29.2 Intake & Output: Intake and Output for Last 24 Hours 02/12/23 02/13/23 02/14/23 23:59 23:59 23:59 Intake Total 2850 / 2850 750 / 750 Output Total 1750 / 1750 800 / 800 Balance 1100 / 1100 -50 / -50 Lab / Micro Data Result Diagrams: 02/14/23 05:55 02/14/23 05:55 Labs: Laboratory Results - last 24 hr 02/14/23 05:55: WBC 15.2 H, RBC 3.55 L, Hgb 11.1 L, Hct 33.9 L, MCV 95.5, MCH 31.3, MCHC 32.7, RDW Std Deviation 43.9, RDW Coeff of Marguerite 12.7, Plt Count 245, MPV 10.7, Immature Gran % (Auto) 0.600, Neut % (Auto) 82.4 H, Lymph % (Auto) 12.1 L, [place] % (Auto) 4.7, Eos % (Auto) 0.0, Baso % (Auto) 0.2, Absolute Neuts (auto) 12.6 H, Absolute Lymphs (auto) 1.84, Nucleated RBC % 0 02/14/23 05:55: Sodium 134 L, Potassium 4.2, Chloride 100, Carbon Dioxide 24.0, Anion Gap 10, BUN 16, Creatinine 1.14 H, Estim Creat Clear Calc 29.30, Est GFR (MDRD) Af Amer 58 L, Est GFR (MDRD) Non-Af 48 L, BUN/Creatinine Ratio 14.0, Glucose 230 H, Calcium 8.6 Radiography Diagnostic Testing: Radiology Impression Knee X-Ray 02/13/23 07:35 IMPRESSION: Degenerative arthrosis. Electronically Signed: Jimenez Fuentes MD at 12:10 EDT , Physical Exam Narrative General: Alert, oriented, no apparent distress HEENT: Atraumatic, normocephalic Eyes: Anicteric, normal conjunctiva, extraocular movements grossly intact Neck: Supple Respiratory: Clear to auscultation bilaterally, normal respiratory effort Cardiovascular: Regular rate and rhythm GI: Soft, nontender, nondistended Extremities: No edema Musculoskeletal: Sitting up in chair moving both extremities Neuro: No overt focal neurological deficits Skin: No rashes appreciated Psych: Cooperative Assessment & Plan Assessment/Plan (1) Closed intertrochanteric fracture of left femur: PLAN: Plan #Comminuted intertrochanteric fracture of the left femur -Seen on hip and pelvis x-ray. Pain control -Orthopedic surgery consulted -Patient to proceed for surgery -Plan for surgery later today -02/14: Postop day 1 from left femur CMN. PT to evaluate today. Patient insistent that she feels well and will be going home today. Awaiting PT evaluation #History of PE -Seems to have been in 2020 and was thought to be provoked due to COVID -Has been off of Eliquis recently without difficulty #Hypertension -Continue lisinopril -Not at goal presently but might in part be due to pain -Will adjust medications as necessary -02/14: Slight increase in creatinine that does not meet criteria for an KATELYN, willgive a small bolus and hold lisinopril and substitute for amlodipine. If patient leaves today can likely have labs checked as an outpatient #Hypothyroidism -Continue Synthroid #DVT prophylaxis: Lovenox Charges/Coding Visit Charges Inpatient E&M: 33782 Subs Hosp L2 02/14/23 1004 <Electronically signed by Sara Lorenzo MD> Cosigner Signature (if applicable): CC: ~ Signed [facility] Work Phone: 1(165) 579-817204-01-[address] Andrews [facility] February 14, 2023 7:25am Note Date/Time February 14, 2023 7:25 am [facility] Medical Records Department [address] [place] [address] Progress Note - Orthopedic 02/14/23720 MR#: [id number] Acct: [id number] Name: SARAH SCHMITZ Rep #:[id number] : 1935 87 From: Jose smith DO PCP: Dr. Jessa Alberto MD Status:ADM IN Location: [place] [address] Subjective Subjective Patient seen and examined. Denies significant pain. Up to chair this morning. Denies fevers, chills, nausea or vomiting, chest pain or shortness of breath. Tolerating p.o. intake. Objective Data Objective Data Vital Signs: Vital Signs Temp Pulse Resp BP Pulse Ox O2 Del Method O2 Flow Rate 97.8 F 87 16 150/89 H 98 Nasal Cannula 2 02/14/23 04:15 02/14/23 04:15 02/14/23 04:15 02/14/23 04:15 02/14/23 04:15 02/14/23 04:15 02/14/23 04:15 Oxygen Flow Rate (L/min) 2 Oxygen Delivery Method Nasal Cannula Weight: 164 lb 14.492 oz Body Mass Index (BMI) 29.2 Intake & Output: Intake and Output for Last 24 Hours 02/12/23 02/13/23 02/14/23 23:59 23:59 23:59 Intake Total 2850 / 2850 750 / 750 Output Total 1750 / 1750 800 / 800 Balance 1100 / 1100 -50 / -50 Lab / Micro Data Result Diagrams: 02/14/23 05:55 02/14/23 05:55 Labs: Laboratory Results - last 24 hr 02/13/23 06:05: TSH 1.40 02/13/23 06:05: Blood Type A POSITIVE, Antibody Screen NEGATIVE 02/14/23 05:55: WBC 15.2 H, RBC 3.55 L, Hgb 11.1 L, Hct 33.9 L, MCV 95.5, MCH 31.3, MCHC 32.7, RDW Std Deviation 43.9, RDW Coeff of Marguerite 12.7, Plt Count 245, MPV 10.7, Immature Gran % (Auto) 0.600, Neut % (Auto) 82.4 H, Lymph % (Auto) 12.1 L, [place] % (Auto) 4.7, Eos % (Auto) 0.0, Baso % (Auto) 0.2, Absolute Neuts (auto) 12.6 H, Absolute Lymphs (auto) 1.84, Nucleated RBC % 0 02/14/23 05:55: Sodium 134 L, Potassium 4.2, Chloride 100, Carbon Dioxide 24.0, Anion Gap 10, BUN 16, Creatinine 1.14 H, Estim Creat Clear Calc 29.30, Est GFR (MDRD) Af Amer 58 L, Est GFR (MDRD) Non-Af 48 L, BUN/Creatinine Ratio 14.0, Glucose 230 H, Calcium 8.6 Radiography Diagnostic Testing: Radiology Impression Knee X-Ray 02/13/23 07:35 IMPRESSION: Degenerative arthrosis. Electronically Signed: Jimenez Fuentes MD at 12:10 EDT , Physical Exam Narrative General - A&Ox3, NAD. VSS/AF Left lower extremity -minimal serosanguineous drainage proximally, otherwise incisional dressings C/D/I. SILT Sural, Saphenous, SPN, DPN, Tibial N. distributions. DP, PT 2+. BCR. DF, PF, EHL 5/5. No calf TTP. Assessment & Plan Assessment/Plan (1) Closed intertrochanteric fracture of left femur: PLAN: POD#1 s/p left femur CMN - Patient doing well this morning. Hemoglobin stable. Continue to mobilize with therapy. Discontinue Gross today. - Pain control - Medicine following for medical management - PT/OT-weightbearing as tolerated left lower extremity - DVT PPX -Lovenox, SCDs, MICHELLE hose, early mobilization - Case management - D/C planning. 02/14/23724 <Electronically signed by Jose Andrews DO> Cosigner Signature (if applicable): CC: ~ Signed [facility] Work Phone: 1(293) 412-492403-31-2023 Procedure [facility] 02-13-[address] Lorenzo [facility] February 13, 2023 10:08am Note Date/Time February 13, 2023 10: 08am [facility] Medical Records Department [address] [place], [place] [address] [address] Progress Note - Hospitalist 02/13/23 1005 MR#: [id number] Acct: [id number] Name: SARAH SCHMITZ Rep #:[id number] : 1935 87 From: Sara Lorenzo MD PCP: Dr. Jessa Alberto MD Status:ADM IN Location: [place] [address]-1 Reason for Visit Reason for Visit: Diagnoses Hypothyroidism, unspecified (02/12/23) Essential (primary) hypertension (02/12/23) Displaced intertrochanteric fracture of left femur, initial encounter for closedfracture (02/12/23) Subjective Subjective Reports having some pain but otherwise no acute complaints Objective Data Objective Data Vital Signs: Vital Signs Temp Pulse Resp BP Pulse Ox O2 Del Method 97.7 F L 69 18 153/64 H 95 Room Air 02/13/23 08:01 02/13/23 08:01 02/13/23 08:01 02/13/23 08:01 02/13/23 08:24 02/13/23 08:24 Oxygen Delivery Method Room Air Weight: 74.8 kg Body Mass Index (BMI) 29.2 Intake & Output: Intake and Output for Last 24 Hours 02/11/23 02/12/23 02/13/23 23:59 23:59 23:59 Intake Total 640 / 640 Output Total 800 / 800 Balance -160 / -160 Lab / Micro Data Result Diagrams: 02/13/23 06:05 02/13/23 06:05 Labs: Laboratory Results - last 24 hr 02/12/23 20:15: WBC 10.7, RBC 4.81, Hgb 14.7, Hct 45.4, MCV 94.4, MCH 30.6, MCHC32.4, RDW Std Deviation 43.3, RDW Coeff of Marguerite 12.5, Plt Count 249, MPV 10.4, Immature Gran % (Auto) 0.700, Neut % (Auto) 76.3 H, Lymph % (Auto) 16.7 L, [place] % (Auto) 5.0, Eos % (Auto) 0.7, Baso % (Auto) 0.6, Absolute Neuts (auto) 8.2 H, Absolute Lymphs (auto) 1.79, Nucleated RBC % 0 02/12/23 20:15: Sodium 136, Potassium 3.8, Chloride 102, Carbon Dioxide 23.0, Anion Gap 11, BUN 21 H, Creatinine 0.90, Estim Creat Clear Calc 37.12, Est GFR (MDRD) Af Amer 76, Est GFR (MDRD) Non-Af 63, BUN/Creatinine Ratio 23.4 H, Glucose 202 H, Calcium 9.2 02/13/23 01:16: Sodium 138, Potassium 4.0, Chloride 103, Carbon Dioxide 26.0, Anion Gap 9, BUN 17, Creatinine 0.80, Estim Creat Clear Calc 41.76, Est GFR (MDRD) Af Amer 87, Est GFR (MDRD) Non-Af 72, BUN/Creatinine Ratio 21.2 H, Glucose 207 H, Calcium 8.5, Total Bilirubin 0.60, AST 27, ALT 33, Alkaline Phosphatase 65, Total Protein 6.5, Albumin 3.4, Globulin 3.1, Albumin/Globulin Ratio 1.1 02/13/23 01:16: Vitamin D 25-Hydroxy 24.0 02/13/23 06:05: WBC 13.5 H, RBC 3.74 L, Hgb 11.7 L, Hct 35.1 L, MCV 93.9, MCH 31.3, MCHC 33.3, RDW Std Deviation 43.8, RDW Coeff of Marguerite 12.7, Plt Count 228, MPV 10.7, Immature Gran % (Auto) 0.400, Neut % (Auto) 75.9 H, Lymph % (Auto) 17.2 L, [place] % (Auto) 6.2, Eos % (Auto) 0.1, Baso % (Auto) 0.2, Absolute Neuts (auto) 10.3 H, Absolute Lymphs (auto) 2.32, Nucleated RBC % 0 02/13/23 06:05: Sodium 137, Potassium 3.8, Chloride 103, Carbon Dioxide 28.0, Anion Gap 6, BUN 19 H, Creatinine 0.75, Estim Creat Clear Calc 33.41, Est GFR (MDRD) Af Amer 94, Est GFR (MDRD) Non-Af 78, BUN/Creatinine Ratio 25.4 H, Glucose 152 H, Calcium 8.2 L 02/13/23 06:05: TSH 1.40 02/13/23 06:05: Blood Type A POSITIVE, Antibody Screen NEGATIVE Radiography Diagnostic Testing: Radiology Impression Chest X-Ray 02/12/23 20:50 IMPRESSION: Mild interstitial prominence. Possible pleural thickening at the left costophrenic angle. Electronically Signed: Howie Saunders DO at 21:10 EDT , Hip/Pelvis X-Ray 02/12/23 20:50 IMPRESSION: There is a comminuted intertrochanteric fracture of the left femur. Electronically Signed: Howie Saunders DO at 21:12 EDT , Physical Exam Narrative General: Alert, oriented, no apparent distress HEENT: Atraumatic, normocephalic Eyes: Anicteric, normal conjunctiva, extraocular movements grossly intact Neck: Supple Respiratory: Clear to auscultation bilaterally, normal respiratory effort Cardiovascular: Regular rate and rhythm GI: Soft, nontender, nondistended Extremities: No edema Musculoskeletal: Pain with movement of left lower extremity Neuro: No overt focal neurological deficits Skin: No rashes appreciated Psych: Cooperative Assessment & Plan Assessment/Plan (1) Closed intertrochanteric fracture of left femur: PLAN: Plan #Comminuted intertrochanteric fracture of the left femur -Seen on hip and pelvis x-ray. Pain control -Orthopedic surgery consulted -Patient to proceed for surgery -Plan for surgery later today #History of PE -Seems to have been in 2020 and was thought to be provoked due to COVID -Has been off of Eliquis recently without difficulty #Hypertension -Continue lisinopril -Not at goal presently but might in part be due to pain -Will adjust medications as necessary #Hypothyroidism -Continue Synthroid #SCDs Charges/Coding Visit Charges Inpatient E&M: 35082 Subs Hosp L2 02/13/23 1008 <Electronically signed by Sara Lorenzo MD> Cosigner Signature (if applicable): CC: ~ Signed [facility] Work Phone: 1(389) 697-134603-31-[address] Andrews [facility] February 13, 2023 7:28am Note Date/Time February 13, 2023 7:2 8am [facility] Medical Records Department [address] [place] [address] Consultation - Orthopedics 02/13/2325 MR#: [id number] Acct: [id number] Name: SARAH SCHMITZ Rep #:[id number] : 1935 87 From: Jose smith DO PCP: Dr. Jessa Alberto MD Status:ADM IN Location: [facility] DU[facility]-5 HPI Consult Data Date of Consult: 02/13/23 HPI Narrative HPI Narrative: SARAH SCHMITZ, is a 87 F who presents after 2 separate mechanical falls yesterday from standing height. The second fall she felt moving trash after performing some lawn care onto a hard sidewalk. She was unable to ambulate. She was brought to the emergency department and x-rays revealed a left intertrochanteric proximal femur fracture. She was admitted under the service of the hospitalist. I saw the patient in consultation this morning. Patient had remote PE and has not been on Eliquis recently. She denies antecedent left hip or groin pain. She occasionally uses a cane to ambulate at night. She reports multiple falls which she states is due to loss of balance but she cannotpredict when she falls. Denies any antecedent syncopal or presyncopal symptoms prior to this fall. Denies fevers, chills, nausea or vomiting, chest pain or shortness of breath. Patient lives at home with her son who is not home full-time. [facility] Medical History Acute hypoxemic respiratory failure Bilateral pulmonary embolism COVID-19 Hypertension Hypothyroidism Irritable bowel Overweight (BMI 25.0-29.9) Restless legs Home Medications levothyroxine 75 mcg tablet 75 mcg PO DAILY THYROID 05/17/17 [History Last Taken 09/29/19 0730] apixaban 5 mg tablet (Eliquis) 5 mg PO BID #60 tabs 10/19/21 [Rx Last Taken Unknown] dexamethasone 6 mg tablet (Decadron) 6 mg PO DAILY #2 tabs 10/19/21 [Rx Last Taken Unknown] lisinopril 20 mg tablet 20 mg PO DAILY #30 tabs 10/19/21 [Rx Last Taken Unknown] Allergy/AdvReac Type Severity Reaction Status Date / Time No Known Allergies Allergy Verified 02/12/23 19:03 Family History Mother Cancer Surgical History History of appendectomy S/P hysterectomy Social History household members: other details: Notes her son lives with her. Smoking Status: Never smoker alcohol intake: never substance use type: does not use ROS ROS Narrative 12 point review of systems obtained, negative unless otherwise noted HPI. Vital Signs Vital Signs Vital Signs: 02/12/23 19:03 02/12/23 20:24 02/12/23 23:48 Temperature 97 F L Temperature Source Temporal Pulse Rate 81 90 81 Respiratory Rate 14 14 16 Blood Pressure 191/110 H 165/93 H Blood Pressure Mean 137 117 Blood Pressure Source Blood Pressure Position Blood Pressure Location Pulse Ox 97 100 95 Oxygen Delivery Method Room Air Room Air Room Air 02/13/23 00:18 02/13/23 02:00 Temperature 98 F 98.1 F Temperature Source Temporal Oral Pulse Rate 79 83 Respiratory Rate 16 18 Blood Pressure 159/81 H 158/79 H Blood Pressure Mean 107 105 Blood Pressure Source Monitor Blood Pressure Position Supine Blood Pressure Location Right Forearm Pulse Ox 97 97 Oxygen Delivery Method Room Air Room Air Weight Weight: 164 lb 14.492 oz Body Mass Index (BMI) 29.2 Physical Exam Narrative General -A&Ox3, NAD, appears stated age. Vital signs stable, afebrile. Respiratory -normal work of breathing, no intercostal retractions. CV -pulses regular, brisk capillary refill ?4 limbs. Abdomen-soft, nontender, nondistended. No guarding, rigidity, rebound tenderness. Musculoskeletal/neurologic -full range of motion nontender throughout bilateral upper extremities, left lower extremity with full sensation and strength in all dermatomes and myotomes. No midline cervical tenderness. Left lower extremity-no obvious deformity. Pain with logroll of the left lowerextremity. Nontender throughout the left knee femoral shaft, tibial shaft and left foot/ankle. She does have tenderness along the anterior proximal tibia without gross deformity. Brisk capillary refill. Sensation intact light touch L3-S1 dermatomes. DF, PF, EHL intact. DP, PT 2+. Pelvis is stable, nontender. Skin is intact without lacerations, abrasions. No ecchymosis noted. Lab / Micro Data Result Diagrams: 02/13/23 06:05 02/13/23 06:05 Labs: Laboratory Results - last 24 hr 02/12/23 20:15: WBC 10.7, RBC 4.81, Hgb 14.7, Hct 45.4, MCV 94.4, MCH 30.6, MCHC32.4, RDW Std Deviation 43.3, RDW Coeff of Marguerite 12.5, Plt Count 249, MPV 10.4, Immature Gran % (Auto) 0.700, Neut % (Auto) 76.3 H, Lymph % (Auto) 16.7 L, [place] % (Auto) 5.0, Eos % (Auto) 0.7, Baso % (Auto) 0.6, Absolute Neuts (auto) 8.2 H, Absolute Lymphs (auto) 1.79, Nucleated RBC % 0 02/12/23 20:15: Sodium 136, Potassium 3.8, Chloride 102, Carbon Dioxide 23.0, Anion Gap 11, BUN 21 H, Creatinine 0.90, Estim Creat Clear Calc 37.12, Est GFR (MDRD) Af Amer 76, Est GFR (MDRD) Non-Af 63, BUN/Creatinine Ratio 23.4 H, Glucose 202 H, Calcium 9.2 02/13/23 01:16: Sodium 138, Potassium 4.0, Chloride 103, Carbon Dioxide 26.0, Anion Gap 9, BUN 17, Creatinine 0.80, Estim Creat Clear Calc 41.76, Est GFR (MDRD) Af Amer 87, Est GFR (MDRD) Non-Af 72, BUN/Creatinine Ratio 21.2 H, Glucose 207 H, Calcium 8.5, Total Bilirubin 0.60, AST 27, ALT 33, Alkaline Phosphatase 65, Total Protein 6.5, Albumin 3.4, Globulin 3.1, Albumin/Globulin Ratio 1.1 02/13/23 01:16: Vitamin D 25-Hydroxy 24.0 02/13/23 06:05: WBC 13.5 H, RBC 3.74 L, Hgb 11.7 L, Hct 35.1 L, MCV 93.9, MCH 31.3, MCHC 33.3, RDW Std Deviation 43.8, RDW Coeff of Marguerite 12.7, Plt Count 228, MPV 10.7, Immature Gran % (Auto) 0.400, Neut % (Auto) 75.9 H, Lymph % (Auto) 17.2 L, [place] % (Auto) 6.2, Eos % (Auto) 0.1, Baso % (Auto) 0.2, Absolute Neuts (auto) 10.3 H, Absolute Lymphs (auto) 2.32, Nucleated RBC % 0 02/13/23 06:05: Sodium 137, Potassium 3.8, Chloride 103, Carbon Dioxide 28.0, Anion Gap 6, BUN 19 H, Creatinine 0.75, Estim Creat Clear Calc 33.41, Est GFR (MDRD) Af Amer 94, Est GFR (MDRD) Non-Af 78, BUN/Creatinine Ratio 25.4 H, Glucose 152 H, Calcium 8.2 L Radiology Impression Chest X-Ray 02/12/23 20:50 IMPRESSION: Mild interstitial prominence. Possible pleural thickening at the left costophrenic angle. Electronically Signed: Howie Saunders DO at 21:10 EDT , Hip/Pelvis X-Ray 02/12/23 20:50 IMPRESSION: There is a comminuted intertrochanteric fracture of the left femur. Electronically Signed: Howie Saunders DO at 21:12 EDT , Assessment & Plan Assessment/Plan (1) Closed intertrochanteric fracture of left femur: PLAN: Patient sustained a left intertrochanteric proximal femur fracture. -Closed, neurovascularly intact -X-rays left knee ordered to rule out additional injury -Recommending surgical intervention in the form of left femur cephalomedullary nailing -I discussed the procedure-its risks, benefits and alternative. Risks include but are not limited to bleeding, infection, loss of life or limb, risk of anesthesia, persistent pain or disability, need for additional surgery, nonunion, malunion, failure of orthopedic hardware, neurovascular injury, DVT orPE. Patient expressed understanding these risks and wished proceed with surgery. -Maintenance IV fluids, clear liquid diet after midnight n.p.o. at 2 hours priorto surgery -Type and screen -2 g Ancef on-call to the OR -Bedrest, heel protectors -Plan to proceed with surgery later today when OR becomes available Thank you for this consultation. 02/13/23 0728 <Electronically signed by Jose Andrews DO> Cosigner Signature (if applicable): CC: Dr. Jessa Alberto MD; Dr. Romie Walsh MD; Dr. Jose Andrews DO~ Signed [facility] Work Phone: [phone]) 664-305403-31-2023 History and physical note Author Dr. Walsh [facility] February 13, 2023 6:33am Note Date/Time February 12, 2023 11: 44pm [facility] Medical Records Department [address] [place] [address] H&P Exam - Hospitalist 02/12/23 2344 MR#: [id number] Acct: [id number] Name: SARAH SCHMITZ Rep #:[id number] : 1935 87 From: Romie Walsh MD PCP: Dr. Jessa Alberto MD Status:ADM IN Location: [facility] HPI - General General Date of Admission: 02/12/23 Date of Service: 02/12/23 Chief Complaint: Fall HPI Narrative SARAH SCHMITZ, is a 87 F with a significant history of pulmonary embolism (who took an anticoagulation about a week ago) hypertension and hypothyroidism who presents to the emergency department with 2 falls on the same day of presentation. Reportedly she fell on her back. Reportedly she has had multiplefalls in the past. She reports excruciating pain at the left hip. Patient received IV narcotic at the emergency department. Reportedly at the emergency department patient was found to be vomiting. [facility] Medical History Acute hypoxemic respiratory failure Bilateral pulmonary embolism COVID-19 Hypertension Hypothyroidism Irritable bowel Overweight (BMI 25.0-29.9) Restless legs Home Medications levothyroxine 75 mcg tablet 75 mcg PO DAILY THYROID 05/17/17 [History Last Taken 09/29/19 0730] apixaban 5 mg tablet (Eliquis) 5 mg PO BID #60 tabs 10/19/21 [Rx Last Taken Unknown] dexamethasone 6 mg tablet (Decadron) 6 mg PO DAILY #2 tabs 10/19/21 [Rx Last Taken Unknown] lisinopril 20 mg tablet 20 mg PO DAILY #30 tabs 10/19/21 [Rx Last Taken Unknown] Allergy/AdvReac Type Severity Reaction Status Date / Time No Known Allergies Allergy Verified 02/12/23 19:03 Family History Mother Cancer Surgical History History of appendectomy S/P hysterectomy Social History household members: other details: Notes her son lives with her. Smoking Status: Never smoker alcohol intake: never substance use type: does not use ROS ROS Narrative Pertinent positives and pertinent negatives as noted in HPI. All other systems were reviewed and are negative Vital Signs Vital Signs Vital Signs: 02/12/23 19:03 02/12/23 20:24 Temperature 97 F L Temperature Source Temporal Pulse Rate 81 90 Respiratory Rate 14 14 Blood Pressure 191/110 H Blood Pressure Mean 137 Pulse Ox 97 100 Oxygen Delivery Method Room Air Room Air Weight Weight: 77.9 kg Body Mass Index (BMI) 30.4 Physical Exam Narrative Physical exam: General: Well-nourished, well-developed. Head: Normocephalic, atraumatic, no tenderness Eyes: Vision is grossly intact. EOMI ENT, no trauma, moist mucous membranes, no rhinorrhea Neck: Nontender, No thyromegaly. CVS: Regular rate and rhythm. S1-S2 present. No murmur, gallop or rub. Respiratory : clear to auscultation bilaterally, chest wall nontender Abdomen: Soft, nontender, nondistended, normal bowel sounds, no masses : Deferred Back: Nontender, no CVA tenderness, no midline spinal tenderness, deformities, step-offs Extremities: Right hip nontender, full range of motion. Left hip not tested forrange of motion secondary to fracture. Left hip tender. Left lower extremity shortened and externally rotated. Skin: Normal color, no trauma, abrasions Neuro: Alert, oriented, cranial nerves II through XII grossly intact. Psychiatry: Normal mood. Normal affect. Not depressed. Not anxious. Results Lab / Micro Data Result Diagrams: 02/12/23 20:15 02/13/23 01:16 Labs: Laboratory Results - last 24 hr 02/12/23 20:15: WBC 10.7, RBC 4.81, Hgb 14.7, Hct 45.4, MCV 94.4, MCH 30.6, MCHC32.4, RDW Std Deviation 43.3, RDW Coeff of Marguerite 12.5, Plt Count 249, MPV 10.4, Immature Gran % (Auto) 0.700, Neut % (Auto) 76.3 H, Lymph % (Auto) 16.7 L, [place] % (Auto) 5.0, Eos % (Auto) 0.7, Baso % (Auto) 0.6, Absolute Neuts (auto) 8.2 H, Absolute Lymphs (auto) 1.79, Nucleated RBC % 0 02/12/23 20:15: Sodium 136, Potassium 3.8, Chloride 102, Carbon Dioxide 23.0, Anion Gap 11, BUN 21 H, Creatinine 0.90, Estim Creat Clear Calc 37.12, Est GFR (MDRD) Af Amer 76, Est GFR (MDRD) Non-Af 63, BUN/Creatinine Ratio 23.4 H, Glucose 202 H, Calcium 9.2 Radiology Impression Chest X-Ray 02/12/23 20:50 IMPRESSION: Mild interstitial prominence. Possible pleural thickening at the left costophrenic angle. Electronically Signed: Howie Saunders DO at 21:10 EDT Reading Location ID and State: [facility] / [place] Tel [phone], Service support , Hip/Pelvis X-Ray 02/12/23 20:50 IMPRESSION: There is a comminuted intertrochanteric fracture of the left femur. Electronically Signed: Howie Saunders DO at 21:12 EDT , Assessment & Plan Assessment/Plan (1) Closed intertrochanteric fracture of left femur: (2) Hypertension: (3) Hypothyroidism: PLAN: Plan Comminuted intertrochanteric fracture of the left femur Impression of hip/Pelvis x-ray by radiology:There is a comminuted intertrochanteric fracture of the left femur. Hip/pelvis x-ray was visualized and independently interpreted and I agree with radiologist interpretation. Emergent department doctor discussed the case with Dr. Andrews. Inpatient consult for orthopedic surgery. Morphine IV as needed ordered. Tylenol as needed ordered. Bowel protocol and antiemetics IV ordered. Clear liquids and then npo for possible surgery Check vitamin D level. Preoperative EKG ordered ACS NSQIP surgical risk calculator with below surgical risk. Okay to proceed with surgery if EKG does not show ischemia or acute infarct. Hypertension Blood pressure is not within goal Lisinopril continued. As needed hydralazine ordered. Trend blood pressure and adjust blood pressure medications. Hypothyroidism Stable Central continued DVT prophylaxis SCD ordered Charges/Coding Visit Charges Inpatient E&M: 19094 Init Hosp L2 02/13/23 0633 <Electronically signed by Romie Walsh MD> Cosigner Signature (if applicable): CC: Dr. Jessa Alberto MD; Dr. Romie Walsh MD~ Signed [facility] Work Phone: 1(192) 972-389103-31-[address] Hardwick [facility] February 12, 2023 10:25pm Note Date/Time February 12, 2023 10: 17pm [facility] Medical Records Department [address] [place] [address] Emergency Department Summary 02/12/23 MR#: [id number] Acct: [id number] Name: SARAH SCHMITZ Rep #:[id number] 1935 87 From: Tonny Hardwick MD PCP: Dr. Jessa Alberto MD Status:REG ER Location: ED HPI History of Present Illness Chief Complaint: Lower Extremity Injury Detail of Chief Complaint: Fall with injury to left hip. Informant: patient and EMS Occured/Mechanism Comment: Patient states she occasionally falls. There is no reason. She fell injuring her left hip. She was unable to rise from the ground. Paramedics transported her to the [facility]. Onset/Context/Timing Onset: Hours Context: Sudden Onset Timing: Continuous Quality of Pain: Dull and Aching Location: Left hip Current Severity: Mild Maximum Severity: Severe Worsened by: Any attempt at movement Relieved by: Nothing Narrative Narrative: Patient is an elderly woman who presents after fall. She was unable to rise from the ground. Paramedics were called and transported to the emergency department. She is on anticoagulant. She does have history of hypothyroidism and hypertension. When asked why she is on an anticoagulant she could not explain. She is told me that she stopped taking it. Patient states she did not hit her head when she fell. She denies neck pain. She denies paresthesia, anesthesia or motor weakness. She denies cardiac respiratory symptoms. She denies GI symptoms. Tetanus Immunization: <5 years Prior similar symptoms: No Recent Illness/Hospitalization: No PFSH PFSH Medical History Acute hypoxemic respiratory failure Bilateral pulmonary embolism COVID-19 Hypertension Hypothyroidism Overweight (BMI 25.0-29.9) Home Medications levothyroxine 75 mcg tablet 75 mcg PO DAILY THYROID 05/17/17 [History Last Taken 09/29/19 0730] apixaban 5 mg tablet (Eliquis) 5 mg PO BID #60 tabs 10/19/21 [Rx Last Taken Unknown] dexamethasone 6 mg tablet (Decadron) 6 mg PO DAILY #2 tabs 10/19/21 [Rx Last Taken Unknown] lisinopril 20 mg tablet 20 mg PO DAILY #30 tabs 10/19/21 [Rx Last Taken Unknown] Allergy/AdvReac Type Severity Reaction Status Date / Time No Known Allergies Allergy Verified 02/12/23 19:03 Family History Mother Cancer Surgical History S/P hysterectomy Social History household members: other details: Notes her son lives with her. Smoking Status: Never smoker alcohol intake: never substance use type: does not use ROS ROS ED Constitutional Constitutional ED: Denies chills or fever(s) Eyes Eyes: Denies blurry vision, change in vision or diplopia ENT ENT ED: Denies ear pain, rhinorrhea or sore throat Cardiovascular Cardiovascular: Denies chest pain, palpitations or racing heartbeat Respiratory/Chest Respiratory/Chest: Denies cough, dyspnea or dyspnea on exertion Gastrointestinal Gastrointestinal: Denies abdominal pain, nausea or vomiting Genitourinary Genitourinary ED: Denies dysuria, hematuria or urinary frequency Musculoskeletal Musculoskeletal: Denies arthralgias, back pain, myalgias or neck pain Integumentary Denies abscess, Abrasions or rash Neurologic Neurologic: Denies headache(s), paresthesias or weakness Endocrine Endocrinology: Denies polydipsia, polyphagia or polyuria Hematologic/Lymphatic Hematologic/Lymphatic: Denies easy bleeding or easy bruising EXAM Physical Exam Const Vital Signs: 02/12/23 19:03 02/12/23 20:24 Temperature 97 F L Temperature Source Temporal Pulse Rate 81 90 Respiratory Rate 14 14 Blood Pressure 191/110 H Blood Pressure Mean 137 Pulse Ox 97 100 Oxygen Delivery Method Room Air Room Air Positive well nourished, well developed and obese Constitutional Narrative: Patient appears uncomfortable. General Appearance ED: well developed Nutritional Appearance: obese HEENT Reports moist mucous membranes HEENT Narrative: There is no clinical findings of basilar skull fracture. normocephalic and atraumatic Eyes PERRL Eyes Narrative: Extract muscle intact. Sclera is anicteric. Conjunctive is pink. There is no subconjunctival hemorrhage. Neck full ROM and supple Neck Narrative: Is no pain no patient posteriorly Chest Wall inspection of chest normal and palpation of chest normal Resp normal respiratory effort, no retractions and clear to auscultation bilaterally Cardio regular rate, regular rhythm, S1 normal heart sound, S2 normal heart sound and no murmurs GI non-tender, non-distended and no masses Palpation: soft Back/Spine no CVA tenderness Extremity Extremity Narrative: Patient has shortening of her left extremity. DP pulses palpable. There is no pain ovation of the toes, foot or ankle. There is no pain the patient over the knee. Any attempt to rotate the left lower extremity causes discomfort. Neuro oriented x3, CN's II-XII intact bilaterally, No moves all extremities and no sensory deficits noted Sensorium / Orientation: alert Plantar Reflex: Downgoing: bilateral Psych mental status grossly normal Skin no wounds Lesions: no lesions Rashes: no rashes MDM MDM MDM Narrative Medical decision making narrative: Clinically patient has a fractured hip. Since she is not on anticoagulant did not hit her head imaging of the head is not indicated. C-spine was cleared per Nexus criteria. Patient has obvious deformity of the left lower extremity exam images were obtained to determine if she has a femoral neck fracture versus intertrochanteric fracture versus infra trochanteric fracture. Chest x-ray was obtained for preoperative clearance as well as appropriate blood work. History & Record Review Discussion w/independent historian: EMS personnel, Patient and Family Additional record(s) reviewed:: Prior inpatient record (Rest admission 2020 for hypokalemia), Prior outpatient record (For musculoskeletal complaints) and PriorED visit (Skill skeletal traumatic complaint) Lab Data Attestation: I reviewed the patient's lab results. Lab results narrative: CBC is unremarkable. Basic metabolic panel is unremarkable. Labs: Laboratory Results - last 24 hr 02/12/23 02/12/23 20:15 20:15 WBC 10.7 RBC 4.81 Hgb 14.7 Hct 45.4 MCV 94.4 MCH 30.6 MCHC 32.4 RDW Std Deviation 43.3 RDW Coeff of Marguerite 12.5 Plt Count 249 MPV 10.4 Immature Gran % (Auto) 0.700 Neut % (Auto) 76.3 H Lymph % (Auto) 16.7 L [place] % (Auto) 5.0 Eos % (Auto) 0.7 Baso % (Auto) 0.6 Absolute Neuts (auto) 8.2 H Absolute Lymphs (auto) 1.79 Nucleated RBC % 0 Sodium 136 Potassium 3.8 Chloride 102 Carbon Dioxide 23.0 Anion Gap 11 BUN 21 H Creatinine 0.90 Estim Creat Clear Calc 37.12 Est GFR (MDRD) Af Amer 76 Est GFR (MDRD) Non-Af 63 BUN/Creatinine Ratio 23.4 H Glucose 202 H Calcium 9.2 Radiography Chest X-Ray - ED: 1 View (Single view chest x-ray reveals underpenetration. Thelungs are underinflated. This makes ruling out interstitial prominence difficult. There is no obvious infiltrate or effusion. Cardiac silhouette and size unremarkable. There is evidence of degenerative changes. This was independent reviewed) and Read by ED Physician (Three-view x-ray of the hip reveals a comminuted intertrochanteric fracture on the left.) Diagnostic Testing: Clinical Impression(s) from Imaging Studies Chest X-Ray 02/12/23 20:50 IMPRESSION: Mild interstitial prominence. Possible pleural thickening at the left costophrenic angle. Electronically Signed: Howie Saunders DO at 21:10 EDT , Hip/Pelvis X-Ray 02/12/23 20:50 IMPRESSION: There is a comminuted intertrochanteric fracture of the left femur. Electronically Signed: Howie Saunders DO at 21:12 EDT , EKG Initial EKG: Attestation: I personally reviewed and interpreted this EKG as follows: Interpretation: Sinus Rhythm (Rate is 83 with a first-degree AV block. PRinterval is 248 ms. There is evidence of right bundle branch block with a QRS duration 160 ms. QT duration 406 ms. [place] is normal) Management Discussion w/another healthcare provider: Hospitalist and Bistro Attendant (Ortho) Treatment and Re-Evaluation Narrative: Patient was medicated with opiate analgesia for pain. Case was discussed with orthopedist for an mission for open reduction internal fixation of intertrochanteric fracture and hospitalist was made aware. The orthopedist was informed that she is on an anticoagulant. This is incorrect after talking with the patient. She was on the anticoagulant after reviewing prior records for pulmonary embolus. She has been off the Eliquis apparently per her choosing. Discharge Plan Triage Chief Complaint: Lower Extremity Injury ED Provider: Tonny Hardwick Dx/Rx/DC Orders Clinical Impression: Closed intertrochanteric fracture of left femur, Hypertension, Hypothyroidism Prescriptions: No Action levothyroxine 75 MCG tablet 75 mcg PO DAILY Eliquis 5 mg Tablet 5 mg PO BID Qty: 60 2RF Rx Instructions: Start on 10/26/2021 dexamethasone [Decadron] 6 mg tablet 6 mg PO DAILY Qty: 2 0RF lisinopril 20 mg Tablet 20 mg PO DAILY Qty: 30 0RF Primary Care Provider: Jessa Alberto Referrals: Jessa Alberto MD [Primary Care Provider] - Disposition Disposition: [facility] What to do if you have Problems For any increased pain, shortness of breath, bleeding, nausea or vomiting, chestpain, or any unexpected problems, contact your Primary Care Provider. Call [facility] ([phone]) or report to the closest Emergency Room. Call 911 if necessary. 02/12/232224 <Electronically signed by Tonny Hardwick MD> Cosigner Signature (if applicable): CC: Dr. Jessa Alberto MD ~ Signed [facility] Work Phone: Evaluation noteNo assessment information available [facility] Work Phone: Evaluation note* Diagnosis Onset Date Resolution Status Closed intertrochanteric fracture of left femur acute Hypothyroidism acute Hypertension chronic [facility] Work Phone: Evaluation note* Diagnosis Onset Date Resolution Status Hypothyroidism acute Hypertension chronic Closed intertrochanteric fracture of left femur resolved Closed left hip fracture acu te Debility acute History of COVID-19 acute History of pulmonary embolism acute Hypothyroidism acute Hypertension chronic [facility] Work Phone: Evaluation note* Diagnosis Onset Date Resolution Status Admit Date Debility acute July 8:45am Dementia acute July 8:45am Edema of both lower legs acute August 09, 2025 8:45am Nonhealing skin ulcer with f at layer exposed acute August 09, 2025 8:45am 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 acute July 182024 8:45am Hypertension chronic August 092024 8:45am KATELYN (acute kidney injury) acute August 14, 2025 3:23pm [facility] Work Phone: Hospital Discharge instructions Additional Instructions Discharge home alone 03/02/2023, [facility] PT/OT/OG.[facility] Work Phone: Reason for referral (narrative)No reason for referral information availableWMercy [facility] Work Phone: Advance Directives Advance Directive Response Recorded Date/ Time Living Will No October 11 6:22pm Power of Engineering Psychologist No October 11, 2021 6:22pm Advance Directive Response Recorded Date/ Time Name of Medical Power of Engineering Psychologist Ever Julian February 13, 2023 12:41am Living Will No February 13, 2023 12:41am Power of Engineering Psychologist Yes February 13 12:41am Advance Directive Response Recorded Date/ Time Name of Medical Power of Engineering Psychologist Ever Julian February 13, 2023 12:41am Living Will No February 19, 2023 4:09pm Power of Engineering Psychologist No February 19 4:09pm Advance Directive Response Recorded Date/ Time Do you have a Healthcare Power of Engineering Psychologist? No August 14, 2025 4:46pm Chief Complaint and Reason for Visit Chief Complaint LEFT INTERTROCHANTER IC HIP FRACTURE LEFT INTERTROCHANTERIC HIP FRACTURE LEFT INTERTROCHANTERIC HIP FRACTURE LEFT INTERTROCHANTERIC HIP FRACTURE LEFT INTERTROCHANTERIC HIP FRACTURE LEFT INTERTROCHANTERIC HIP FRACTURE LEFT INTERTROCHANTERIC HIP FRACTURE Reason for Visit Closed intertrochant lindsay fracture of left femur Hypothyroidism Hypertension Chief Complaint LEFT INTERTROCHANTER IC HIP FRACTURE LEFT INTERTROCHANTERIC HIP FRACTURE EKG LEFT INTERTROCHANTERIC HIP FRACTURE LEFT INTERTROCHANTERIC HIP FRACTURE LEFT INTERTROCHANTERIC HIP FRACTURE LEFT INTERTROCHANTERIC HIP FRACTURE LEFT INTERTROCHANTERIC HIP FRACTURE LEFT HIP FRACTURE Reason for Visit Hypothyroidism Hypertension Closed intertrochanteric fracture of left femur Closed left hip fracture Debility History of COVID-19 History of pulmonary embolism Hypothyroidism Hypertension Chief Complaint Admit Date wound August 02, 2025 1:51pm wound August 09, 2025 8:45am wound August 09, 2025 10:58am SEVERE KATELYN August 14, 2025 3:23pm SEVERE KATELYN August 14, 2025 11:27pm Reason for Visit Admit Date Debility August 09, 2025 8:45am Dementia August 09, 2025 8:45am Edema of both lower legs August 09, 2025 8:45am Nonhealing skin ulcer with fat layer exp osed August 09, 2025 8:45am 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 Isabela Gipson DO Family Provider Active Dr. Jessa Alberto MD Primary Care Provider Active Team Status: Active Member Role Status Dates Dr. Jessa Alberto MD Primary Care Provider Active Dr. Tonny Hardwick MD Emergency Provider Active Dr. Romie Walsh MD Admit Provider, Attending Provider, Other Provider Active Dr. Jose Andrews DO Other Provider Active Dr. Sara Lorenzo MD Other Provider Active Team Status: Active Member Role Status Dates Dr. Jessa Alberto MD Primary Care Provider Active Dr. Tonny Hardwick MD Emergency Provider Active Dr. Romie Walsh MD Admit Provider, Other Provide r Active Dr. Jose Andrews DO Other Provider Active Dr. Sara Lorenzo MD Attending Provider, Other [facility] er Active Team Status: Active Member Role Status Dates Dr. Jessa Alberto MD Primary Care Provider Active Dr. Tonny Hardwick MD Emergency Provider Active Dr. Romie Walsh MD Admit Provider, Other Provide r Active Dr. Sara Lorenzo MD Attending Provider, Other [facility] er Active Dr. Jose Andrews DO Other Provider Active Team Status: Active Member Role Status Dates Dr. Jessa Alberto MD Primary Care Provider Active Dr. Tonny Hardwick MD Emergency Provider Active Dr. Romie Walsh MD Admit Provider, Other Provide r Active Dr. Jose Andrews DO Other Provider Active Dr. Otto Nolasco MD Attending Provider, Other Provid er Active Dr. Sara Lorenzo MD Other Provider Active Team Status: Inactive Member Role Status Dates Dr. Jessa Alberto MD Primary Care Provider Active Dr. Tonny Hardwick MD Emergency Provider Active Dr. Romie Walsh MD Admit Provider, Other Provide r Active Dr. Jose Andrews DO Other Provider Active Dr. Otto Nolasco MD Attending Provider Active Dr. Sara Lorenzo MD Other Provider Active Team Status: Active Member Role Status Dates Dr. Jessa Alberto MD Primary Care Provider Active Dr. Dave Huerta MD Attending Provider Active Dr. Sara Lorenzo MD Referring Provider Active Team Status: Inactive Member Role Status Dates Dr. Jessa Alberto MD Primary Care Provider Active Dr. Sachin Zambrano MD Admit Provider, Attending Provid er Active Team Status: Active Member Role/Relationship Status Dates Dr. Isabela Gipson DO Family Provider Active Dr. Jessa Alberto MD Primary Care Provider Active Team Status: Inactive Member Role/Relationship Status Dates Dr. Jessa Alberto MD Primary Care Provider Active Start: May 31, 2025 End: May 31, 2025 ISABELLA Livingston Attending Provider Active St art: May 31, 2025 End: May 31, 2025 Team Status: Active Member Role/Relationship Status Dates Dr. Jessa Alberto MD Primary care physician Active Team Status: Inactive Member Role/Relationship Status Dates Dr. Jessa Alberto MD Primary care physician Active Start: May 31, 2025 End: May 31, 2025 ISABELLA Livingston Attending physician Active S tart: May 31, 2025 End: May 31, 2025 Team Status: Inactive Member Role/Relationship Status Dates Dr. Jessa Alberto MD Primary care physician Active Start: July 27, 2025 End: July 27, 2025 Dr. Jessa Alberto MD Attending physician Active Start: July 27, 2025 End: July 27, 2025 Team Status: Active Member Role/Relationship Status Dates Dr. Jessa Alberto MD Primary care physician Active Start: August 02, 2025 Dr. Jessa Alberto MD Referring Provider Active Start: August 02, 2025 Latrice Loredo PAPER MILL SUPERVISOR, PAPER MILL SUPERVISOR-C Attending physician Active Start: August 02, 2025 Latrice Loredo PAPER MILL SUPERVISOR, PAPER MILL SUPERVISOR-C Nurse Practitioner Active Start: August 02, 2025 Team Status: Active Member Role/Relationship Status Dates Dr. Jessa Alberto MD Primary care physician Active Start: August 09, 2025 Dr. Jessa Alberto MD Referring Provider Active Start: August 09, 2025 Latrice Loredo PAPER MILL SUPERVISOR, PAPER MILL SUPERVISOR-C Attending physician Active Start: August 09, 2025 Team Status: Active Member Role/Relationship Status Dates Dr. Jessa Alberto MD Primary care physician Active Start: August 09, 2025 Dr. Jessa Alberto MD Referring Provider Active Start: August 09, 2025 Latrice Loredo PAPER MILL SUPERVISOR, PAPER MILL SUPERVISOR-C Attending physician Active Start: August 09, 2025 Latrice Loredo PAPER MILL SUPERVISOR, PAPER MILL SUPERVISOR-C Nurse Practitioner Active Start: August 09, 2025 Team Status: Active Member Role/Relationship Status Dates Dr. Jessa Alberto MD Primary care physician Active Start: August 14, 2025 Dr. Jefferson Neal MD Emergency Departmen t Physician Active Start: August 14, 2025 Dr. Pepe Cruz DO Admitting physician Active Start: July Dr. Pepe Cruz DO Nurse Practitioner Active Start: July Dr. Bhavik Dior MD Attending physician Active Start: August 14, 2025 Dr. Glen Davis MD Nurse Practitioner Active Start: August 14, 2025 Team Status: Active Member Role/Relationship Status Dates Dr. Jessa Alberto MD Primary care physician Active Start: August 14, 2025 Dr. Jefferson Neal MD Emergency Departmen t Physician Active Start: August 14, 2025 Dr. Pepe Cruz DO Admitting physician Active Start: July Dr. Pepe Cruz DO Nurse Practitioner Active Start: July ISABELLA Guillaume Attending physician Active Start: August 14, 2025 INFORMATION SOURCE (unrecogn ized section and content) DATE CREATED AUTHOR 08/09/2025 [facility] DATE CREATED AUTHOR AUTHOR'S ORGANIZ ATION 08/10/2025 [facility] FOR RECORDS PERTAINING TO PATIENTS WHO ARE OR HAVE BEEN ENROLLED IN A CHEMICAL DEPENDENCY/SUBSTANCEABUSE PROGRAM, SOME INFORMATION MAY BE OMITTED. This clinical summary was aggregated from multiple sources. Caution should be exercised in using it in the provision of clinical care. This summary normalizes information from multiple sources, and as a consequence, information in this document may materially change the coding, format and clinical context of patient data. In addition, data may be omitted in some cases. CLINICAL DECISIONS SHOULD BE BASED ON THE PRIMARY CLINICAL RECORDS. [facility] [employer] [facility]. provides no warranty or guarantee of the accuracy or completeness of information in this document.
--- NOTE | 2025-08-18 18:10 | PCM.HP.STD ---
HPI - General General Date of Admission: 08/18/25 Date of Service: 08/18/25 HPI Narrative SARAH SCHMITZ, is a 89 YO F who presented to the ED at [facility] on 08/14/2025 complaining of confusion. Patient lives with her son (per a recent wound care note.......he drives truck and is only home on the weekends?). Past medical history is significant for dementia, chronic lower extremity wounds with edema, hypertension, restless legs, diabetes mellitus type 2, history of bilateral pulmonary emboli (related to a COVID infection), possibly dementia and hypothyroidism. Her PCP had recently increased her Lasix dosage because of persistent lower extremity edema. Lab in the ER was notable for an increased creatinine of 4.25 when her baseline is normally around 0.9. The BUN was 123. A noncontrast CT brain was unremarkable. She was admitted to the hospitalist service. On physical exam she had a few crackles in the bilateral bases but no wheezes. She was breathing comfortably on room air with no tachypnea and no conversational dyspnea. There was trace lower extremity edema noted. There were wraps in place. She was admitted to the hospitalist service. She was given 2 L of IV fluid while in the ER and this was not continued at admission.. Lasix was placed on hold. She was seen in consult by nephrology and they recommended no intervention since the creatinine improved with hydration and holding the Lasix. Creatinine on the day of discharge from the acute side of the hospital was 0.96 which is at her baseline. The BUN is 30. Sodium is 139 potassium is 3.5. Hemoglobin A1c was 8.1 on 08/14/2025. she was transferred to the transitional care unit/SNF unit at [facility] on 08/18/2025 for therapy to strengthen prior to Discharge from the hospital. She has never had a echocardiogram at this institution. She had a BNP on 07/27/2025 that was unremarkable at 244. The last time she was seen in the wound care center was on 08/02/2025 and at that time she had only mild edema. She was diagnosed with cellulitis of the bilateral lower extremities. She was placed on cefdinir and doxycycline. A wound culture was supposedly ordered however there are no results in the EMR for that visit. At that time she was on furosemide and metolazone. TSH was 4.9 on 07/27/2025. Has not had a T4 since July 2017. She has been in [employer] boots in the past and this seemed to be effective. It is unlikely that the edema can be controlled at home since she sits in a recliner most of the time with her legs dependent. She is mostly sedentary. She does not wear any compression on the legs when she is at home. Her last vitamin D level was in January 2023 and at that time it was low at 24. She is not taking a vitamin D supplement. [facility] Medical History (Updated 08/20/25 @ 07:[address] Ayse Yen DO) CRF (chronic renal failure) Chronic venous insufficiency Diabetes Non-smoker Irritable bowel Restless legs Overweight (BMI 25.0-29.9) Bilateral pulmonary embolism COVID-19 Acute hypoxemic respiratory failure Hypothyroidism Hypertension Home Medications ?Medication ?Instructions ?Recorded ?Last Taken ?Type levothyroxine 75 mcg tablet 75 mcg PO DAILY THYROID 05/17/17 04/27/24 History lisinopril 5 mg tablet 5 mg PO DAILY blood pressure 08/02/25 Unknown History Held on 08/18/25. Instructions: Hold for KATELYN sitagliptin phosphate 25 mg tablet 25 mg PO DAILY diabetes 08/02/25 Unknown History (Eladio) Held on 08/18/25. Instructions: Hold for 5-day furosemide 40 mg tablet 40 mg PO DAILY edema #0 tabs 08/18/25 Unknown Rx insulin lispro 100 unit/mL See Protocol subcut ACHS diabetes 08/18/25 Unknown Rx subcutaneous pen (Humalog KwikPen #0 mL (U-100) Insulin) menthol 0.44 %-zinc oxide 20.6 % 1 applic topical TID #0 grams 08/18/25 Unknown Rx topical ointment (Calmoseptine) potassium chloride 20 mEq 40 meq (2 x 20 mEq) PO DAILYCM 08/18/25 Unknown Rx tablet,extended release(part/cryst) supplement #0 tabs Allergy/AdvReac Type Severity Reaction Status Date / Time No Known Allergies Allergy Verified 02/12/23 19:03 Family History Mother Cancer Surgical History History of appendectomy S/P hysterectomy Social History (Updated 08/18/25 @ 19:[address] Ayse Yen DO) household members: other details: Notes her son lives with her. number of children: 7 Smoking Status: Never smoker alcohol intake: never substance use type: does not use ROS Review of Systems ROS Unobtainable: other Details: Review of systems is mildly limited due to probable diagnosis of dementia. She is able to give me yes and no answers to most questions. Constitutional Constitutional: Reports fatigue, weakness and other Details: tells me that she does not eat much and can not tell me how she gets her meals. ; Denies anorexia, change in weight, chills, fever(s) or night sweats Eyes Eyes: Denies blurry vision, change in vision, eye pain or loss of vision ENT HEENT: Reports abnormal hearing; Denies dysphagia, headache(s), hearing loss, nasal congestion or sore throat Cardiovascular Cardiovascular: Reports dyspnea on exertion and edema; Denies chest pain, lightheadedness, orthopnea, palpitations, paroxysmal nocturnal dyspnea or syncope Respiratory/Chest Respiratory/Chest: Denies cough, dyspnea, shortness of breath at rest, shortness of breath with exertion or wheezing Gastrointestinal Gastrointestinal: Denies abdominal pain, constipation, diarrhea, dyspepsia, hematemesis, hematochezia, nausea or vomiting Genitourinary Genitourinary: Denies dysuria, hematuria, nocturia, urinary frequency, urinary hesitancy, urinary incontinence or urinary urgency Musculoskeletal Musculoskeletal: Reports joint pain and muscle weakness; Denies back pain, joint swelling, neck pain or tremors Integumentary Integumentary: Denies jaundice or rash Neurologic Neurologic: Reports confusion and memory loss; Denies disequilibrium, dizziness, focal weakness, headache(s), paresthesias, seizures or tremor(s) Psychiatric Psychiatric: Denies suicidal ideation or visual hallucinations Endocrine Endocrinology: Denies change in body appearance, polydipsia or polyuria Hematologic/Lymphatic Hematologic/Lymphatic: Denies easy bleeding, easy bruising or lymphadenopathy Physical Exam Const alert and no apparent distress Constitutional Narrative: Oriented to person. Can not tell me her age but, can tell me she was born in 1935. Can not tell me the month or the year. When I asked her what she eats she says she does not eat much. When I ask her who does her grocery shopping she tells me she does not eat much. She is unaware that she is diabetic. She cannot recall that she has ever been seen in the wound care center. She is very pleasant and she makes good eye contact with me when we are talking. When I entered the room she was sitting in the recliner with her legs dependent. The Dimas wrap's are falling down. General Appearance: cooperative HEENT HEENT Narrative: Mucous membranes are moist Head and Scalp: normocephalic Eyes PERRL, EOMs intact bilaterally, conjunctivae normal and no scleral icterus Eyes Narrative: No discharge from the eyes. No nystagmus. Neck supple Chest Chest: symmetrical chest wall rise Resp normal respiratory effort Resp Narrative: She is not tachypneic and she is able to speak in complete sentences. She had a few coarse crackles in the bases but I suspect this is due to atelectasis. There was no wheezing. She has an incentive spirometer at the bedside but she is not properly using it because she cannot remember. Effort and Inspection: able to speak in complete sentences Cardio no rub and no gallops Cardio Narrative: The heart is very irregular at this time. She had an EKG done on 08/14/2025 that showed sinus tachycardia with a right bundle branch block. She denies any problems with her heart. She has a systolic murmur at the second right intercostal space that radiates to the left ventricular outflow tract and the lower left sternal border. GI normal to inspection, nondistended, normoactive bowel sounds, soft to palpation and non-tender GI Narrative: No guarding with palpation no CVA tenderness Extremity Extremity Narrative: She has pitting edema of both lower extremities into the posterior thighs. There are Dimas wrap's on but they are falling down. She has dependent rubor. She has decent dorsalis pedis pulses bilaterally and she has intact popliteal pulses bilaterally. She was sitting with her legs dependent in the recliner at the time of my exam. There is redness over portions of the dorsum over the feet BL and this does not kiel. I suspect the is due to pressure from the DIMAS being too tight. The LLE is reddened...suspect due to venous congestion. There are openings in the skin.....mostly posterior just proximal to the ankle. There is serosanguineous discharge on the bandages. On the right lower extremity there are several openings in the skin over the anterior lloyd and Aquacel is in place. There is redness of the right lower extremity as well and again I suspect this is secondary to venous congestion and not infection. She is not febrile and white blood cell count is normal. The skin over the distal lower extremities is very dry, cracking and flaky. Skin Skin Narrative: See skin description of the lower extremities under extremity. No rashes. Neuro Neuro Narrative: No focal motor deficits. No facial asymmetry. No loss of vision. Tongue protrudes in the midline. Oriented to person. Cannot tell me the month, the year, her age or where she is at. Psych Psych Narrative: She is confused but very pleasant. Denies hallucinations. No suicidal ideation. Very talkative. Appearance: grossly normal and appropriate Attitude: calm and No agitated Results Lab / Micro Data 08/19/25 06:33 08/19/25 06:33 Assessment & Plan Assessment/Plan (1) Debility: (2) Acute renal failure superimposed on chronic kidney disease: QUALIFIERS: Acute renal failure type: unspecified Chronic kidney disease stage: stage 3 (moderate) Chronic kidney disease stage 3 subtype: stage 3a (GFR 45-59) Qualified Code(s): N17.9 - Acute kidney failure, unspecified; N18.31 - Chronic kidney disease, stage 3a (3) Venous stasis ulcers: QUALIFIERS: Venous stasis ulcer site: calf Varicose vein presence: with varicose veins Laterality: unspecified laterality Non-pressure ulcer stage: with fat layer exposed Qualified Code(s): I83.002 - Varicose veins of unspecified lower extremity with ulcer of calf; L97.202 - Non-pressure chronic ulcer of unspecified calf with fat layer exposed (4) Nonhealing skin ulcer with fat layer exposed: (5) Chronic venous insufficiency: (6) CRF (chronic renal failure): QUALIFIERS: Chronic kidney disease stage: stage 3 (moderate) Chronic kidney disease stage 3 subtype: stage 3a (GFR 45-59) Qualified Code(s): N18.31 - Chronic kidney disease, stage 3a (7) Stasis dermatitis of both legs: (8) Dementia: QUALIFIERS: Dementia type: vascular dementia Dementia severity: moderate Dementia behavioral or psychological symptom: with anxiety Qualified Code(s): F01.B4 - Vascular dementia, moderate, with anxiety (9) Hypertension: QUALIFIERS: Hypertension type: unspecified Qualified Code(s): I10 - Essential (primary) hypertension (10) Diabetes: QUALIFIERS: Diabetes mellitus type: type 2 Diabetes mellitus chcf insulin use: without moth exterminator use Diabetes mellitus complication status: with kidney complications Diabetes mellitus complication detail: with chronic kidney disease Chronic kidney disease stage: stage 3 (moderate) Chronic kidney disease stage 3 subtype: stage 3a (GFR 45-59) Qualified Code(s): E11.22 - Type 2 diabetes mellitus with diabetic chronic kidney disease; N18.31 - Chronic kidney disease, stage 3a PLAN: Plan PLAN PT for gait stability OT for ADL's ST for evaluation of cognition Analgesics as needed Bowel protocol Fall precautions Assess for Anxiety/Depression GI prophylaxis -not necessary at this time DVT prophylaxis with heparin 5000 units SQ every 12 hours since she does have a history of VTE although it was associated with COVID. Follow up with [] following DC from [facility] AM lab including CMP, CBC, Mag and Phos blood sugars have all been less than 200 with no hypoglycemia. Januvia was discontinued while she was in the hospital. She has been on a sliding insulin scale. Continue sliding insulin scale and start Amaryl 1 mg p.o. daily. Check a T4 in the a.m. BNP, liver profile, magnesium, vitamin D level, B12 and phosphorus in the a.m. Daily weights, accurate intake and output I suspect the swelling in the legs is due to venous insufficiency. She sits most of the time with her legs dependent. She has no compression stockings and can not wrap her legs. She has had 7 children. Denies SOB except with exertion. Continue current dressings with Aquacel Must elevate the legs when she is in the recliner. Need to get the heels off the bed. Charges/Coding Visit Charges Inpatient E&M: 20309 SNF Subs L1
[2025-08-18 18:21] VITALS: BMI 31.6
[2025-08-18 18:25] VITALS: BP 132/62; PULSE 68; RESP 16; TEMP 36.5; O2SAT 97
--- NOTE | 2025-08-18 18:25 | NURSING ---
pt ate supper on acute side before admit to TCU
--- NOTE | 2025-08-18 18:41 | NURSING ---
called SHELBY ignacio Ever- asked admission questions pt was unable to answer due to confusion- verified code status DNRCCA no intubation
--- NOTE | 2025-08-18 19:07 | EKG12_ITS ---
Test Reason : AARTHMIA Blood Pressure : */* mmHG Vent. Rate : 82 BPM Atrial Rate : 82 BPM P-R Int : 224 ms QRS Dur : 114 ms QT Int : 416 ms P-R-T Axes : 55 66 69 degrees QTcB Int : 486 ms Sinus rhythm with 1st degree A-V block with Premature atrial complexes with Aberrant conduction Low voltage QRS Right bundle branch block Abnormal ECG Confirmed by MAR KILLIAN, YESY ([id number]), editor book RUBEN JUNG ([id number]) on 08/21/2025 8:42:30 AM Referred By: Ayse Yen Confirmed By: YESY MANUEL MD
[2025-08-18 20:00] VITALS: PULSE 84; O2SAT 97
--- NOTE | 2025-08-18 20:14 | NURSING ---
Patient requesting something for pain, Dr. Yen called and updated, new order for Tylenol 1,000mg po Q8 hours PRN pain, order verified back read back and acknowledged correct.
[2025-08-18] MEDS: 0.9% Saline Lock 10 ML Syringe IV ×2 (20:48→22:36)
[2025-08-18] MEDS: Senna/Docusate Sodium 1 Tablet PO (22:36)
[2025-08-18] MEDS: Heparin Injection (Vial) 5,000 UNIT/ML VIAL 5000 UNIT SC (22:48)
[2025-08-19 06:00] VITALS: BMI 31.1
[2025-08-19 07:10] LABS: Hematocrit 33.0 % (37-47); Hemoglobin 10.9 g/dL (12.0-15.0); Immature Granulocytes Count 0.490 X10^3/uL (0.0-0.0); Mean Corp Hgb Conc 33.0 g/dL (32-36); Mean Corpuscular Volume 94.3 fL (81-99); Mean Platelet Vol. 9.6 fl (6.2-12.0); NRBC Flagged by Analyzer 0.2 % (0-5); Platelet Count 248 K/mm3 (150-450); RBC Distribution Width CV 15.3 % (11.6-14.6); RBC Distribution Width SD 52.9 fl (35.1-43.9); Red Blood Count 3.50 M/mm3 (4.2-5.4); White Blood Count 10.5 K/mm3 (4.4-11.0)
[2025-08-19 07:46] LABS: Magnesium 2.5 mg/dL (1.5-2.2); Pro- Brain NATRIURETIC PEPTIDE 1857 pg/mL (<=1800)
[2025-08-19 07:58] LABS: AST(SGOT) 27 U/L (<=31); Alanine Aminotransfer ALT/SGPT 23 U/L (<=34); Albumin, Serum 3.4 g/dL (3.4-4.8); Alkaline Phosphatase 52 U/L (35-104); Anion Gap 11 (5-15); BUN 36 mg/dL (4-19); BUN/Creat Ratio 37.5 RATIO (10-20); Bilirubin, Direct 0.14 mg/dL (0.00-0.30); Calcium,Total 8.5 mg/dL (7.6-11.0); Carbon Dioxide 24.3 mmol/L (21.0-32.0); Chloride 105 mmol/L (98-108); Estimated Creatinine Clearance 39.62 ml/min (50-250); Globulin 3.1 g/dL (2.2-4.2); Glucose 144 mg/dL (70-99); Potassium 4.0 mmol/L (3.3-5.1); Vitamin D,25 Hydroxy 7.9 ng/mL (30-100)
[2025-08-19 08:34] LABS: Vitamin B12 367 pg/mL (180-914)
[2025-08-19 09:14] VITALS: BP 145/79; PULSE 76; RESP 18; TEMP 35.9; O2SAT 96
[2025-08-19] MEDS: Potassium Chloride Oral Tablet 20 MEQ 40 MEQ PO (09:17)
[2025-08-19] MEDS: Senna/Docusate Sodium 1 Tablet PO ×2 (09:21→21:20)
[2025-08-19] MEDS: Heparin Injection (Vial) 5,000 UNIT/ML VIAL 5000 UNIT SC ×2 (09:24→21:19)
[2025-08-19] MEDS: Tuberculin,Purif.prot.deriv. 50 TU/ML Vial 0.1 ML ID (11:55)
--- NOTE | 2025-08-20 00:11 | NURSING ---
Dressing change to mary LE completed on 08/19/25 @ 2111 per order. Wound bed appears pale with minimal granular tissue. Pt did not tolerate procedure well. Pt crying out and stating it hurts. That's enough. Emotional support provided to pt. Pt education provided related to purpose of dressing changes. PRN Tylenol administered for pain per order and pt request. Pt repositioned for comfort. Pt denies needs for further assistance. Call light within reach.
--- NOTE | 2025-08-20 01:03 | NURSING ---
life educator reported multiple attempts made to get pt into bed. This nurse offered to get pt into bed as well. Pt refusing to get back into bed despite education related to open areas on bottom. Pt refusing to have pressure reducing chair pad under bottom while in chair. Pt refusing to elevate legs while in chair.
[2025-08-20 05:28] VITALS: BMI 31.4
--- NOTE | 2025-08-20 07:49 | PCM.PROGNOTE ---
Subjective Subjective Afebrile Vital signs stable Maintaining appropriate oxygen saturation on room air Blood sugar record was reviewed. The blood sugar prior to supper yesterday was only 81 and the fasting today is 114. She received Amaryl 1 mg yesterday. She had no insulin coverage yesterday. Incontinent of urine. Poor fluid intake yesterday according to the charting......only 720 cc. Per nursing has open sores on her buttocks. She refused to get into bed last night. She sits in the recliner for long periods of time and this is contributing to the pressure ulcers on the posterior calves and the buttocks. She refuses to let the nurses get her into bed to offload the pressure on her back side. She will not allow nursing to elevate her legs. She complains of severe pain with dressing changes. She had no other complaints this morning. She sleeps in her chair most of the day. Objective Data Objective Data Vital Signs: Vital Signs Temp Pulse Resp BP Pulse Ox O2 Del Method 96.7 F L 76 18 145/79 H 96 Room Air 08/19/25 09:14 08/19/25 09:14 08/19/25 09:14 08/19/25 09:14 08/19/25 09:14 08/19/25 10:00 Oxygen Delivery Method Room Air Weight: 177 lb 9.6 oz Body Mass Index (BMI) 31.4 Intake & Output: Intake and Output for Last 24 Hours 08/18/25 08/19/25 08/20/25 23:59 23:59 23:59 Intake Total 60 / 60 750 / 750 Balance 60 / 60 750 / 750 Lab / Micro Data 08/19/25 06:33 08/19/25 06:33 Labs: Laboratory Results - last 24 hr 08/19/25 06:33: Sodium 140, Potassium 4.0, Chloride 105, Carbon Dioxide 24.3, Anion Gap 11, BUN 36 H, Creatinine 0.97, Estim Creat Clear Calc 39.62 L, Est GFR (MDRD) Non-Af 56 L, BUN/Creatinine Ratio 37.5 H, Glucose 144 H, Calcium 8.5, Phosphorus 2.3 L, Total Bilirubin 0.31, Direct Bilirubin 0.14, AST 27, ALT 23, Alkaline Phosphatase 52, Total Protein 6.5, Albumin 3.4, Globulin 3.1, Vitamin B12 367, Vitamin D 25-Hydroxy 7.9 L, Free T4 0.60 L 08/19/25 11:56: POC Glucose 100 08/19/25 16:30: POC Glucose 81 08/19/25 21:25: POC Glucose 170 H 08/20/25 06:03: POC Glucose 114 H Micro: Microbiology 08/19/25 05:18 Nasal Secretion SARS-CoV-2 Antigen (Rapid) - Final Physical Exam Const alert and no apparent distress General Appearance: cooperative Resp normal respiratory effort Resp Narrative: She is not tachypneic and she is able to speak in complete sentences. She had a few coarse crackles in the bases but I suspect this is due to atelectasis. There was no wheezing. She has an incentive spirometer at the bedside but she is not properly using it because she cannot remember. Effort and Inspection: able to speak in complete sentences Cardio no rub and no gallops Cardio Narrative: The heart is very irregular at this time. She had an EKG done on 08/14/2025 that showed sinus tachycardia with a right bundle branch block. She denies any problems with her heart. She has a systolic murmur at the second right intercostal space that radiates to the left ventricular outflow tract and the lower left sternal border. GI normal to inspection, nondistended, normoactive bowel sounds, soft to palpation and non-tender GI Narrative: No guarding with palpation no CVA tenderness Assessment & Plan Assessment/Plan (1) Debility: (2) Acute renal failure superimposed on chronic kidney disease: QUALIFIERS: Acute renal failure type: unspecified Chronic kidney disease stage: stage 3 (moderate) Chronic kidney disease stage 3 subtype: stage 3a (GFR 45-59) Qualified Code(s): N17.9 - Acute kidney failure, unspecified; N18.31 - Chronic kidney disease, stage 3a (3) Venous stasis ulcers: QUALIFIERS: Venous stasis ulcer site: calf Varicose vein presence: with varicose veins Laterality: unspecified laterality Non-pressure ulcer stage: with fat layer exposed Qualified Code(s): I83.002 - Varicose veins of unspecified lower extremity with ulcer of calf; L97.202 - Non-pressure chronic ulcer of unspecified calf with fat layer exposed (4) Nonhealing skin ulcer with fat layer exposed: (5) Chronic venous insufficiency: (6) CRF (chronic renal failure): QUALIFIERS: Chronic kidney disease stage: stage 3 (moderate) Chronic kidney disease stage 3 subtype: stage 3a (GFR 45-59) Qualified Code(s): N18.31 - Chronic kidney disease, stage 3a (7) Stasis dermatitis of both legs: (8) Dementia: QUALIFIERS: Dementia type: vascular dementia Dementia severity: moderate Dementia behavioral or psychological symptom: with anxiety Qualified Code(s): F01.B4 - Vascular dementia, moderate, with anxiety (9) Hypertension: QUALIFIERS: Hypertension type: unspecified Qualified Code(s): I10 - Essential (primary) hypertension (10) Diabetes: QUALIFIERS: Diabetes mellitus type: type 2 Diabetes mellitus snf insulin use: without polygraph technician use Diabetes mellitus complication status: with kidney complications Diabetes mellitus complication detail: with chronic kidney disease Chronic kidney disease stage: stage 3 (moderate) Chronic kidney disease stage 3 subtype: stage 3a (GFR 45-59) Qualified Code(s): E11.22 - Type 2 diabetes mellitus with diabetic chronic kidney disease; N18.31 - Chronic kidney disease, stage 3a PLAN: Plan 1. DC Amaryl. I suspect the BS's can be controlled with diet alone. Tight BS control is not a goal in this 89 YO pt with dementia. She is on a calorie controlled, carb consistent, cardiac diet. Will continue. She is eating well. Continue the ACHS sugars for another 24-48 hours. 2. Continue with current dressing orders. Give Tramadol 50 mg 1 hour prior to the daily dressing change. 3. TSH is a tad elevated......appropriate control for this age group. T4 is a tad low.......probable euthyroid sick. Will continue with 75 mcg of Levothyroxine. 4. Would like to talk with family about code status. She has many decubitus ulcers and she does not want to comply with treatment/positioning to offload pressure and get the wound healed. She just wants to be left alone and sit in the recliner day and night without moving. She will not elevate her legs and has persistent edema of the LE's. Weight is up 3 lbs today. Will reorder Lasix 40 mg daily. Charges/Coding Visit Charges Inpatient E&M: 405[address] [facility] Subs L1
[2025-08-20 09:16] VITALS: BP 123/62; PULSE 75; RESP 18; TEMP 36.4; O2SAT 95
[2025-08-20] MEDS: Potassium Chloride Oral Tablet 20 MEQ 40 MEQ PO (09:18)
[2025-08-20] MEDS: Cholecalciferol (VIT D3) 25 MCG TABLET (1,000 UNITS) PO (09:19)
[2025-08-20] MEDS: Senna/Docusate Sodium 1 Tablet PO ×2 (09:23→21:12)
[2025-08-20] MEDS: Heparin Injection (Vial) 5,000 UNIT/ML VIAL 5000 UNIT SC ×2 (09:24→21:12)
[2025-08-20 20:02] VITALS: PULSE 76; O2SAT 97
--- NOTE | 2025-08-21 03:52 | NURSING ---
Written communication left for Dr. Yen regarding pt not having a bowel movement since 08/17/25 and the need for PRN orders
[2025-08-21 05:46] VITALS: BMI 31.8
[2025-08-21 07:31] LABS: Prothrombin Time (Protime)PT. 13.3 SECONDS (11.7-14.9)
[2025-08-21] MEDS: Heparin Injection (Vial) 5,000 UNIT/ML VIAL 5000 UNIT SC ×2 (09:22→20:59)
[2025-08-21] MEDS: Cholecalciferol (VIT D3) 25 MCG TABLET (1,000 UNITS) PO (09:22)
[2025-08-21] MEDS: Potassium Chloride Oral Tablet 20 MEQ 40 MEQ PO (09:22)
--- NOTE | 2025-08-21 10:23 | PCM.PN.DRR ---
Documented by User: Scott Jesusphil 08/21/25 10:39 TCU RX Drug Regimen Review Subjective/Objective Subjective/Objective Subjective: TCU admission note. 89 YOF with PMH below with pitting edema in extremities and renal failure here for strengthening and rehabilitation. Objective: Allergies No Known Allergies Allergy (Verified 02/12/23 19:03) Current Medications Generic Name Dose Route Start Last Admin Trade Name Freq PRN Reason Stop Dose Admin Acetaminophen 1,000 mg 08/18/25 20:12 08/19/25 21:20 Acetaminophen 500 Mg Tablet PO 1,000 mg Q8H PRN PRN Administration Pain 1-10 or Fever Calamine/Phenol 1 applic 08/18/25 22:00 08/21/25 05:27 Menthol/Lanolin/Calamine/Znox 113 Gm Tube TOPICAL 1 applic TID JOSE Administration Protocol Cholecalciferol 25 mcg 08/20/25 10:00 08/21/25 09:22 Cholecalciferol (Vit D3) 25 Mcg Tablet (1,000 Units) PO 25 mcg DAILY JOSE Administration Furosemide 40 mg 08/21/25 10:00 08/21/25 09:22 Furosemide 40 Mg Tablet PO 40 mg DAILY JOSE Administration Protocol Heparin Sodium (Porcine) 5,000 unit 08/18/25 22:00 08/21/25 09:22 Heparin Injection (Vial) 5,000 Unit/Ml Vial SC 5,000 unit Q12 JOSE Administration Levothyroxine Sodium 75 mcg 08/19/25 06:00 08/21/25 05:27 Levothyroxine 75 Mcg Tablet PO 75 mcg DAILY@0600 JOSE Administration Nystatin 1 applic 08/19/25 10:00 08/21/25 09:29 Nystatin Powder 15gm Bottle TOPICAL 1 applic BID JOSE Administration Protocol Potassium Chloride 40 meq 08/19/25 08:00 08/21/25 09:22 Potassium Chloride Oral Tablet 20 Meq PO 40 meq DAILYCM JOSE Administration Senna/Docusate Sodium 1 tablet 08/18/25 22:00 08/21/25 09:22 Senna/Docusate Sodium 1 Tablet PO Not Given BID JOSE Sodium Chloride 10 - 40 ml 08/18/25 17:39 08/18/25 22:36 0.9% Saline Lock 10 Ml Syringe IV 10 ml UD PRN Administration SALINE FLUSH Tramadol HCl 0 mg 08/20/25 14:00 08/21/25 09:22 Tramadol 50 Mg Tablet PO 50 mg DAILY JOSE Administration Tuberculin PPD 0.1 ml 08/26/25 10:00 Tuberculin,Purif.Prot.Deriv. 50 Tu/Ml Vial ID 08/26/25 10:01 X1 ONE Problem List CRF (chronic renal failure) (Chronic) Stasis dermatitis of both legs (Acute) Diabetes (Chronic) Venous stasis ulcers (Chronic) Chronic venous insufficiency (Chronic) Dementia (Suspected) Nonhealing skin ulcer with fat layer exposed (Acute) Hypertension (Chronic) Debility (Acute) Vital Signs Temp Pulse Resp BP Pulse Ox O2 Del Method 97.6 F L 76 18 123/62 H 97 Room Air 08/20/25 09:16 08/20/25 20:02 08/20/25 09:16 08/20/25 09:16 08/20/25 20:02 08/20/25 20:02 Oxygen Delivery Method Room Air Weight: 81.647 kg Body Mass Index (BMI) 31.8 Sodium 140 mmol/L (133-145) 08/19/25 06:33 Potassium 4.0 mmol/L (3.3-5.1) 08/19/25 06:33 Chloride 105 mmol/L (98-108) 08/19/25 06:33 Carbon Dioxide 24.3 mmol/L (21.0-32.0) 08/19/25 06:33 Anion Gap 11 (5-15) 08/19/25 06:33 BUN 36 mg/dL (4-19) H 08/19/25 06:33 Creatinine 0.97 mg/dL (0.70-1.20) 08/19/25 06:33 Est GFR (MDRD) Non-Af 56 (>60) L 08/19/25 06:33 BUN/Creatinine Ratio 37.5 RATIO (10-20) H 08/19/25 06:33 Glucose 144 mg/dL (70-99) H 08/19/25 06:33 Assessment/Plan: 1. Pain: acetaminophen 1000 mg PO Q8 PRN pain, tramadol 50 mg PO daily prior to dressing changes. The patient has used 2 doses of PRN acetaminophen so far this admission. Please continue to monitor for PRN medication usage, pain levels, LFTs (27/23 U/L on 08/19/25), renal function (serum creatinine = 0.97 mg/dL with creatinine clearance ~ 40 mL/min on 08/19/25), for seizures, for respiratory depression, for constipation, for dizziness/drowsiness, and for syncope/ataxia/falls. 2. Bowel: senna/docusate 1 tablet PO BID. Please continue to monitor for bowel movements (last documented bowel movement on 08/17/25), for constipation and for diarrhea. 3. DVT prophylaxis: heparin 5000 units Q12. Please continue to monitor for s/s of a DVT such as pain/erythema/swelling in an extremity, for bleeding/excessive bruising, hemoglobin levels (Hgb = 10.9 g/dL on 08/19/25), and platelet counts (Plt = 248 K/mm3 on 08/19/25). 4. Hypothyroidism: levothyroxine 75 mcg PO daily. Please continue to monitor thyroid hormone levels (TSH = 4.91 uIU/mL on 07/27/25 with T4 = 0.6 ng/mL on ), and for s/s of hypo/hyperthyroidism. 5. Lower extremity edema: furosemide 40 mg PO daily. Please continue to monitor for lower extremity edema, for dehydration, for s/s of orthostasis, renal function (serum creatinine = 0.97 mg/dL with creatinine clearance ~ 40 mL/min on 08/19/25), potassium levels (K = 4.0 mmol/L on 08/19/25), sodium levels (Na = 140 mmol/L on 08/19/25), and calcium levels (Ca = 8.5 mg/dL on 08/19/25). 6. Hypokalemia/furosemide use: potassium chloride 40 mEq PO daily with a meal. Please continue to monitor potassium levels (K = 4.0 mmol/L on 08/19/25), and for GI distress with potassium chloride administration. 7. Vitamin D deficiency: cholecalciferol 25 mcg PO daily. Please continue to monitor vitamin D levels (vitamin D = 7.9 ng/mL on 08/19/25). With the patient's very low vitamin D level it would be reasonable to give him ergocalciferol 50,000 units weekly for 8 weeks, then back to 1000 units daily thereafter. Assessment/Plan for indications treated with psychotropic medications: NA Medical chart and medication regimen reviewed. The following medication irregularities or issues were identified: 1. Vitamin D deficiency: cholecalciferol 25 mcg PO daily. Please continue to monitor vitamin D levels (vitamin D = 7.9 ng/mL on 08/19/25). With the patient's very low vitamin D level it would be reasonable to give him ergocalciferol 50,000 units weekly for 8 weeks, then back to 1000 units daily thereafter. Date Date of Note: 08/21/25 Documented by User: Dr. Sachin Zambrano MD 08/22/25 07:55 TCU RX Drug Regimen Review Provider Comments Provider responsibility Provider Comments to Recommendations by Pharmacy Agree
--- NOTE | 2025-08-21 12:45 | NURSING ---
Leather Softener Note; Activity Asset: Vinay Manuel is independent in her choice of daily activities. She will read, watch tv, do word puzzles, visit w/family and friends. She welcomes visits from the lance crewmember and therapy dog when available. Staff will encourages social activities, remind her of weekly activities and respect her right to say no.
--- NOTE | 2025-08-21 13:35 | NURSING ---
Offered covid vaccine, VIS provided. Resident declines.
--- NOTE | 2025-08-21 14:41 | CASEMGMT ---
Social Work SW met with patient to complete initial assessment. Pt known to this worker from previous admission. Verified/updated contacts. patient confirmed code status as DNR-CCA, no intubation. Educated to [facility] insurance and review process. Pt's goal is to return home alone. SW will continue to follow for DC planning. Davina Conner IMPREGNATING TANK OPERATOR LEVERS LACE MACHINE OPERATOR
[2025-08-21 16:00] VITALS: BP 122/60; PULSE 70; RESP 17; TEMP 36.6; O2SAT 96
--- NOTE | 2025-08-21 16:24 | WOUNDNOTE ---
wound photo: bilateral buttocks
--- NOTE | 2025-08-21 16:25 | WOUNDNOTE ---
wound photo: right medial lower leg
--- NOTE | 2025-08-21 16:25 | WOUNDNOTE ---
wound photo: right lower leg
--- NOTE | 2025-08-21 16:27 | WOUNDNOTE ---
wound photo: right posterior lower leg
--- NOTE | 2025-08-21 16:27 | WOUNDNOTE ---
wound photo: left lower leg
[2025-08-21 20:07] VITALS: PULSE 72; RESP 16; O2SAT 92
[2025-08-21] MEDS: Senna/Docusate Sodium 1 Tablet PO (20:51)
--- NOTE | 2025-08-21 21:00 | NURSING ---
Patient offered assist to bed x3 attempts, educated on importance of offloading pressure in an effort to promote/maintain skin integrity. Patient declines, states No, I always sleep in my chair. Patient encouraged to utilize call button at any time for staff assist and to notify staff if would like assistance to bed at any time. Verbalizes understanding. Declines elevation of BLE despite education/encouragement. Personal items and call light within reach. Denies requests.
[2025-08-22 02:55] VITALS: BMI 31.5
[2025-08-22 03:07] VITALS: PULSE 68; RESP 18; O2SAT 95
--- NOTE | 2025-08-22 08:25 | RAD_ITS ---
PROCEDURE: ABDOMEN SINGLE VIEW 08/22/2025 REASON FOR EXAM: CONSTIPATION. TECHNIQUE: Procedure Code: RADABD Modality: DX Procedure: ABDOMEN SINGLE VIEW COMPARISON: None FINDINGS: Bowel gas: Normal bowel-gas pattern. Modest amount of formed stool throughout the colon. Calcifications: Stone is projected over the right midabdomen just lateral to L2 measuring 28 x 19 mm. This is likely renal pelvis calculus. Bones: There are degenerative changes of the spine. Left femoral nail. Other: No organomegaly. Surgical clips over the pelvis. RAD/Abdomen Single View IMPRESSION: Modest amount of formed stool throughout the colon. Consider constipation. No bowel dilation. Large calculus in the right midabdomen. Possible calculus of the renal pelvis. Reading Location: [id number]
[2025-08-22 09:21] VITALS: BP 127/63; PULSE 72; RESP 16; TEMP 36.1; O2SAT 98
[2025-08-22] MEDS: Potassium Chloride Oral Tablet 20 MEQ 40 MEQ PO (09:25)
[2025-08-22] MEDS: Cholecalciferol (VIT D3) 25 MCG TABLET (1,000 UNITS) PO (09:25)
[2025-08-22] MEDS: Ergocalciferol 1.25 MG (50, 000 UNIT) Capsule PO (09:25)
[2025-08-22] MEDS: Heparin Injection (Vial) 5,000 UNIT/ML VIAL 5000 UNIT SC ×2 (09:25→20:48)
[2025-08-22] MEDS: Senna/Docusate Sodium 1 Tablet PO ×2 (09:30→20:45)
--- NOTE | 2025-08-22 09:35 | NURSING ---
entered room to administer medications & pt immediately asked nurse to put legs down, c/o pain when they are up. educated pt reason for elevation but states too painful. legs in dependent position at this time. call light in reach. will check back to see if pt will let this nurse elevate in chair or bed.
[2025-08-22 13:16] VITALS: BMI 32.2
--- NOTE | 2025-08-22 18:03 | NURSING ---
pt continues to refuse to keep legs elevated or even get into bed to elevate legs.
--- NOTE | 2025-08-23 02:09 | NURSING ---
Continues to decline assistance to bed/elevation of feet while in chair despite education. Patient encouraged to utilize call light anytime for staff assist, verbalizes understanding. Personal items and call light with in reach.
[2025-08-23 04:53] VITALS: BMI 32.2
--- NOTE | 2025-08-23 06:23 | NURSING ---
Patient c/o difficulty sleeping, written communication left for Dr. Zambrano.
[2025-08-23 08:52] VITALS: BP 120/67; PULSE 74; RESP 18; TEMP 36.4; O2SAT 97
[2025-08-23] MEDS: Heparin Injection (Vial) 5,000 UNIT/ML VIAL 5000 UNIT SC ×2 (08:55→21:13)
[2025-08-23] MEDS: Potassium Chloride Oral Tablet 20 MEQ 40 MEQ PO (08:55)
[2025-08-23] MEDS: Senna/Docusate Sodium 1 Tablet PO ×2 (08:56→21:13)
--- NOTE | 2025-08-23 09:03 | NURSING ---
pt refusing SSE order this AM. pt did have milk of magnesia yesterday and had LG formed BM. pt denies bowel issues. will monitor today and continue to ask to be sure.
--- NOTE | 2025-08-23 09:56 | CASEMGMT ---
Addendum entered by Davina Conner 08/23/25 12:01: Diane BISHPO replied informing this worker pt has FIELD MARKETING SPECIALIST through [facility] for 2 hrs and W for 1 hr. Pt can attend [facility], but pt apparently denied prior. IMANI inquired about eligibility and staffing for an increase. Original Note: Social Work IDT met with patient and son for care plan meeting. Discussed patient's progress in PT/OT/ST/SN/RDN. Educated to [facility] insurance with [employer]D 08/25 and continued stay is not guaranteed with each review. Provided pt/family with written communication of insurance process and copay coverage during stay. IDT recommending 24/7 supervision for cognition, or during awake hours. SW inquired about a life alert. Son stated pt is active with [employer] Desai is her CM and she receives MOW and life alert already. IMANI appreciative of information and will contact CM to inquire about [facility] and FIELD MARKETING SPECIALIST. Son agreed. Son inquired about [place] and MIL was in [facility] before and had Diane as CM as well. SW agreed [place] would be appropriate and [facility] is a Medicaid Waiver approved facility. SW to note that CM as well. Son appreciative. IMANI will continue to follow for DC planning. - IMANI sent secure email to Diane BISHOP. Davina Conner BUCKLE GLUER FINE CHEMICALS OPERATOR
[2025-08-23 10:00] VITALS: PULSE 70; RESP 16; O2SAT 96
--- NOTE | 2025-08-23 11:01 | NURSING ---
therapy finished with pt session, assisted her to chair and elevated legs. pt just called out and requesting legs to be put back down. educated pt on importance of elevating legs as much as possible. pt continued to decline keeping them up.
--- NOTE | 2025-08-23 14:02 | NURSING ---
wound nurse had elevated pt legs & within 5 minutes calling staff to put them down, causing her too much pain. pt tearful and agitated, asking for tylenol, given. WET MIXER put legs down.
[2025-08-23] MEDS: MELATONIN 3 MG TABLET PO (21:13)
[2025-08-24 05:02] VITALS: PULSE 68; RESP 16; O2SAT 97
[2025-08-24 05:15] VITALS: BMI 32.3
[2025-08-24] MEDS: Heparin Injection (Vial) 5,000 UNIT/ML VIAL 5000 UNIT SC ×2 (09:35→21:36)
[2025-08-24] MEDS: Potassium Chloride Oral Tablet 20 MEQ 40 MEQ PO (09:36)
[2025-08-24] MEDS: Senna/Docusate Sodium 1 Tablet PO ×2 (09:36→21:35)
--- NOTE | 2025-08-24 12:38 | MDS.RN ---
Pain assessment for MDS complete.
[2025-08-24 16:00] VITALS: BP 122/70; PULSE 80; RESP 17; TEMP 36.6; O2SAT 95
[2025-08-24] MEDS: MELATONIN 3 MG TABLET PO (21:35)
[2025-08-25 05:03] VITALS: BMI 32.1
[2025-08-25 05:19] LABS: Hematocrit 32.9 % (37-47); Hemoglobin 10.6 g/dL (12.0-15.0); Immature Granulocytes Count 0.300 X10^3/uL (0.0-0.0); Mean Corp Hgb Conc 32.2 g/dL (32-36); Mean Corpuscular Volume 97.3 fL (81-99); Mean Platelet Vol. 9.5 fl (6.2-12.0); NRBC Flagged by Analyzer 0.3 % (0-5); Platelet Count 288 K/mm3 (150-450); RBC Distribution Width CV 16.4 % (11.6-14.6); RBC Distribution Width SD 57.0 fl (35.1-43.9); Red Blood Count 3.38 M/mm3 (4.2-5.4); White Blood Count 11.2 K/mm3 (4.4-11.0)
[2025-08-25 05:36] LABS: Anion Gap 10 (5-15); BUN 30 mg/dL (4-19); BUN/Creat Ratio 32.7 RATIO (10-20); Calcium,Total 8.6 mg/dL (7.6-11.0); Carbon Dioxide 26.3 mmol/L (21.0-32.0); Chloride 101 mmol/L (98-108); Estimated Creatinine Clearance 42.11 ml/min (50-250); Glucose 137 mg/dL (70-99); Potassium 4.0 mmol/L (3.3-5.1)
--- NOTE | 2025-08-25 09:26 | NURSING ---
Bed Spring Maker Note; MDS for 08/25/2025 Complete
[2025-08-25 09:32] VITALS: BP 100/59; PULSE 63; RESP 18; TEMP 36.2; O2SAT 95
[2025-08-25] MEDS: Potassium Chloride Oral Tablet 20 MEQ 40 MEQ PO (09:34)
[2025-08-25] MEDS: Heparin Injection (Vial) 5,000 UNIT/ML VIAL 5000 UNIT SC ×2 (09:39→22:07)
--- NOTE | 2025-08-25 13:21 | NURSING ---
Patient Family Member Walked Patient To And From Bathroom. Reinforced Teaching In Regards To Safe Patient Transfers. Educated Patient And Family About Transferring And To Call For Help. Notified Therapy, Notified RN.
[2025-08-25 16:00] VITALS: BP 124/67; PULSE 82; RESP 18; TEMP 36.6; O2SAT 98
--- NOTE | 2025-08-25 17:31 | CASEMGMT ---
Social Work SW completed BIMS (10/30) and PHQ-2 () for MDS assessment. Davina Conner DELIVERY CONSULTANT ROLL INSPECTOR
[2025-08-25 20:00] VITALS: PULSE 91; O2SAT 98
[2025-08-25] MEDS: MELATONIN 3 MG TABLET PO (22:05)
[2025-08-25] MEDS: Senna/Docusate Sodium 1 Tablet PO (22:05)
--- NOTE | 2025-08-25 23:49 | NURSING ---
Patient requesting legs to be put back down. educated pt on importance of elevating legs as much as possible. pt continued to decline keeping them up.
[2025-08-26 02:54] VITALS: PULSE 62; O2SAT 94
[2025-08-26 05:41] VITALS: BMI 32.3
[2025-08-26 08:23] VITALS: BP 126/60; PULSE 78; RESP 17; TEMP 36.1; O2SAT 96
[2025-08-26] MEDS: Heparin Injection (Vial) 5,000 UNIT/ML VIAL 5000 UNIT SC ×2 (08:28→21:24)
[2025-08-26] MEDS: Potassium Chloride Oral Tablet 20 MEQ 40 MEQ PO (08:28)
[2025-08-26] MEDS: Senna/Docusate Sodium 1 Tablet PO (08:34)
[2025-08-26] MEDS: Tuberculin,Purif.prot.deriv. 50 TU/ML Vial 0.1 ML ID (10:34)
[2025-08-26] MEDS: MELATONIN 3 MG TABLET PO (21:24)
[2025-08-27 04:34] VITALS: BMI 32.6
[2025-08-27 07:54] VITALS: BP 158/99; PULSE 77; RESP 18; TEMP 36.2; O2SAT 97
[2025-08-27 07:56] VITALS: BP 165/77
[2025-08-27] MEDS: Potassium Chloride Oral Tablet 20 MEQ 40 MEQ PO (08:03)
[2025-08-27] MEDS: Senna/Docusate Sodium 1 Tablet PO ×2 (08:03→20:45)
--- NOTE | 2025-08-27 08:06 | NURSING ---
slot shift supervisor staff reported pt with rectal bright red bleeding in toilet, it was noted pt had inflamed hemorrhoid. will update dr del angel. held SQ heparin at this time
--- NOTE | 2025-08-27 14:01 | NURSING ---
dr del angel notified of pt hemorrhoids bleeding, new orders received. DC heparin & anusol suppos PRN
[2025-08-27 15:47] VITALS: PULSE 65; RESP 18; O2SAT 92
[2025-08-27] MEDS: MELATONIN 3 MG TABLET PO (20:45)
[2025-08-28 04:28] VITALS: BMI 32.6
[2025-08-28] MEDS: Potassium Chloride Oral Tablet 20 MEQ 40 MEQ PO (07:57)
[2025-08-28] MEDS: Senna/Docusate Sodium 1 Tablet PO ×2 (08:04→21:10)
[2025-08-28 11:42] VITALS: PULSE 82; RESP 20; O2SAT 98
--- NOTE | 2025-08-28 15:09 | CASEMGMT ---
Addendum entered by Davina Conner 08/28/25 16:18: Received return call from son after he spoke with [facility], requesting referral to [facility]. SW placed referral and will confirm they are [facility] certified in [place]. Original Note: Social Work SW phoned son, Ever, to inquire about DC plans, as pt's insurance update is 08/31 and likely to receive a NOMNC. Son stated pt will need to go to [place] or SNF. SW inquired if he had a facility in mind. Son stated pt's family member has been in [facility] before and would like that. SW agreed as [facility] accepts Waiver. SW explained pt will likely need to DC to SNF first because pt will need approved for [place] Waiver. SW will contact [facility] to begin assessment, and place referral to [facility]. Son expressed understanding. - IMANI sent email to [facility] requesting [place] assessment. [facility] Davina Conner TRANSFER CAR OPERATOR DRIER DUST SAMPLER
--- NOTE | 2025-08-28 20:10 | NURSING ---
Patient requesting legs to be put back down. educated pt on importance of elevating legs as much as possible. pt continued to decline keeping them up.
[2025-08-28] MEDS: MELATONIN 3 MG TABLET PO (21:08)
[2025-08-29 06:00] VITALS: BMI 33.0
[2025-08-29] MEDS: Senna/Docusate Sodium 1 Tablet PO ×2 (07:59→21:51)
[2025-08-29] MEDS: Potassium Chloride Oral Tablet 20 MEQ 40 MEQ PO (07:59)
[2025-08-29] MEDS: Ergocalciferol 1.25 MG (50, 000 UNIT) Capsule PO (07:59)
[2025-08-29 08:04] VITALS: BP 114/69; PULSE 118; RESP 18; TEMP 36.2; O2SAT 98
--- NOTE | 2025-08-29 12:46 | MDS.RN ---
Information for the MDS was obtained from review of the clinical record, interview of resident, staff, and direct observation of resident?s care.
[2025-08-29 20:00] VITALS: PULSE 76; O2SAT 94
--- NOTE | 2025-08-29 20:00 | NURSING ---
Patient requesting legs to be down. educated pt on importance of elevating legs as much as possible. pt continued to decline putting legs up.
[2025-08-29] MEDS: MELATONIN 3 MG TABLET PO (21:51)
[2025-08-30 05:12] VITALS: BMI 32.8
[2025-08-30 06:35] VITALS: PULSE 70; O2SAT 96
[2025-08-30] MEDS: Potassium Chloride Oral Tablet 20 MEQ 40 MEQ PO (08:43)
[2025-08-30] MEDS: Senna/Docusate Sodium 1 Tablet PO (08:44)
--- NOTE | 2025-08-30 15:51 | WOUNDNOTE ---
Dressings are ordered every other day and were changed yesterday. this nurse will assess tomorrow.
[2025-08-30 16:00] VITALS: BP 122/61; PULSE 83; RESP 16; TEMP 37; O2SAT 97
--- NOTE | 2025-08-30 16:19 | CASEMGMT ---
Social Work SW spoke with son during visit and informed him [facility] does not have beds, but [facility] can accept. Asked if that was FOC or if he wanted additional referrals made. Son stated [facility] is FOC. SW to update son with outcome of insurance update and SW to arrange DC plans. Son appreciative. Davina Conner BILLBOARD ERECTOR SCREW SUPERVISOR
[2025-08-30] MEDS: MELATONIN 3 MG TABLET PO (21:31)
[2025-08-31 05:18] VITALS: BMI 32.4
[2025-08-31 09:21] VITALS: BP 124/58; PULSE 80; RESP 17; TEMP 36.5; O2SAT 98
[2025-08-31] MEDS: Potassium Chloride Oral Tablet 20 MEQ 40 MEQ PO (09:23)
[2025-08-31] MEDS: Senna/Docusate Sodium 1 Tablet PO ×2 (09:24→20:39)
--- NOTE | 2025-08-31 16:01 | WOUNDNOTE ---
wound photo: bilateral buttocks
--- NOTE | 2025-08-31 16:02 | WOUNDNOTE ---
wound photo: left lower leg
--- NOTE | 2025-08-31 16:03 | WOUNDNOTE ---
wound photo: left lower leg
--- NOTE | 2025-08-31 16:05 | WOUNDNOTE ---
wound photo: right lower leg
--- NOTE | 2025-08-31 16:06 | WOUNDNOTE ---
wound photo: right lower leg
--- NOTE | 2025-08-31 16:06 | WOUNDNOTE ---
wound photo: right lower leg
[2025-08-31] MEDS: MELATONIN 3 MG TABLET PO (20:39)
[2025-08-31 20:45] VITALS: PULSE 60; RESP 18; O2SAT 94
[2025-09-01 05:20] VITALS: BMI 32.5
[2025-09-01 05:22] VITALS: PULSE 72; RESP 16; O2SAT 95
[2025-09-01 08:10] LABS: Hematocrit 35.1 % (37-47); Hemoglobin 11.3 g/dL (12.0-15.0); Immature Granulocytes Count 0.210 X10^3/uL (0.0-0.0); Mean Corp Hgb Conc 32.2 g/dL (32-36); Mean Corpuscular Volume 98.0 fL (81-99); Mean Platelet Vol. 9.9 fl (6.2-12.0); NRBC Flagged by Analyzer 0.2 % (0-5); Platelet Count 233 K/mm3 (150-450); RBC Distribution Width CV 16.7 % (11.6-14.6); RBC Distribution Width SD 60.0 fl (35.1-43.9); Red Blood Count 3.58 M/mm3 (4.2-5.4); White Blood Count 10.6 K/mm3 (4.4-11.0)
[2025-09-01 08:42] LABS: Anion Gap 11 (5-15); BUN 29 mg/dL (4-19); BUN/Creat Ratio 41.8 RATIO (10-20); Calcium,Total 8.9 mg/dL (7.6-11.0); Carbon Dioxide 27.1 mmol/L (21.0-32.0); Chloride 98 mmol/L (98-108); Estimated Creatinine Clearance 48.79 ml/min (50-250); Glucose 156 mg/dL (70-99); Potassium 4.0 mmol/L (3.3-5.1)
[2025-09-01 09:57] VITALS: BP 116/70; PULSE 118; RESP 18; TEMP 36.6; O2SAT 97
[2025-09-01] MEDS: Potassium Chloride Oral Tablet 20 MEQ 40 MEQ PO (09:58)
--- NOTE | 2025-09-01 12:42 | CASEMGMT ---
Social Work IMANI spoke with son Ever regarding the cut letter from the insurance company. SW left a copy in the patients room. Ever reported he going to file an appeal. IMANI gave Evre the phone number to call to file the appeal. IMANI explained the appeal process. IMANI informed him he will receive a case number and to please call SW with that number. Ever reported he thinks his mother has Medicaid and he is going to look for that information and provide it to the SW. CONOR Broussard
--- NOTE | 2025-09-01 13:07 | NURSING ---
pt remains in recliner, refuses to change positions.
--- NOTE | 2025-09-01 14:24 | PCM.DC.SUM ---
Providers Date of Admission: 08/18/25 Primary Care Physician: Dr. Jessa Alberto MD Consultations 08/18/25 19:08 Consult: Onc/Wound/energy attorney Routine Comment: Reason for Consult:: chronic leg ulcers 08/20/25 01:11 Consult: Onc/Wound/energy attorney Routine Comment: Reason for Consult:: worsening open areas on bottom Reason For Visit: SEVERE KATELYN Diagnosis Discharge Diagnosis (1) Debility: Status: Acute Code(s): R53.81 - Other malaise (2) Acute renal failure superimposed on chronic kidney disease: Status: Resolved Code(s): N17.9 - Acute kidney failure, unspecified; N18.9 - Chronic kidney disease, unspecified Qualifiers: Acute renal failure type: unspecified Chronic kidney disease stage: stage 3 (moderate) Chronic kidney disease stage 3 subtype: stage 3a (GFR 45-59) Qualified Code(s): N17.9 - Acute kidney failure, unspecified; N18.31 - Chronic kidney disease, stage 3a (3) Venous stasis ulcers: Status: Chronic Code(s): I83.009 - Varicose veins of unspecified lower extremity with ulcer of unspecified site; L97.909 - Non-pressure chronic ulcer of unspecified part of unspecified lower leg with unspecified severity Qualifiers: Venous stasis ulcer site: calf Varicose vein presence: with varicose veins Laterality: unspecified laterality Non-pressure ulcer stage: with fat layer exposed Qualified Code(s): I83.002 - Varicose veins of unspecified lower extremity with ulcer of calf; L97.202 - Non-pressure chronic ulcer of unspecified calf with fat layer exposed (4) Nonhealing skin ulcer with fat layer exposed: Status: Acute Code(s): L98.492 - Non-pressure chronic ulcer of skin of other sites with fat layer exposed (5) Chronic venous insufficiency: Status: Chronic Code(s): I87.2 - Venous insufficiency (chronic) (peripheral) (6) CRF (chronic renal failure): Status: Chronic Code(s): N18.9 - Chronic kidney disease, unspecified Qualifiers: Chronic kidney disease stage: stage 3 (moderate) Chronic kidney disease stage 3 subtype: stage 3a (GFR 45-59) Qualified Code(s): N18.31 - Chronic kidney disease, stage 3a (7) Stasis dermatitis of both legs: Status: Acute Code(s): I87.2 - Venous insufficiency (chronic) (peripheral) (8) Dementia: Status: Suspected Code(s): F03.90 - Unspecified dementia, unspecified severity, without behavioral disturbance, psychotic disturbance, mood disturbance, and anxiety Qualifiers: Dementia type: vascular dementia Dementia severity: moderate Dementia behavioral or psychological symptom: with anxiety Qualified Code(s): F01.B4 - Vascular dementia, moderate, with anxiety (9) Hypertension: Status: Chronic Code(s): I10 - Essential (primary) hypertension Qualifiers: Hypertension type: unspecified Qualified Code(s): I10 - Essential (primary) hypertension (10) Diabetes: Status: Chronic Code(s): E11.9 - Type 2 diabetes mellitus without complications Qualifiers: Diabetes mellitus type: type 2 Diabetes mellitus buttermaker helper insulin use: without half-way use Diabetes mellitus complication status: with kidney complications Diabetes mellitus complication detail: with chronic kidney disease Chronic kidney disease stage: stage 3 (moderate) Chronic kidney disease stage 3 subtype: stage 3a (GFR 45-59) Qualified Code(s): E11.22 - Type 2 diabetes mellitus with diabetic chronic kidney disease; N18.31 - Chronic kidney disease, stage 3a Medications at Discharge Home Medications levothyroxine 75 mcg tablet 75 mcg PO DAILY THYROID 05/17/17 furosemide 40 mg tablet 40 mg PO DAILY edema #0 tabs 08/18/25 menthol 0.44 %-zinc oxide 20.6 % topical ointment (Calmoseptine) 1 applic topical TID #0 grams 08/18/25 potassium chloride 20 mEq tablet,extended release(part/cryst) 40 meq (2 x 20 mEq) PO DAILYCM supplement #0 tabs 08/18/25 acetaminophen 500 mg tablet 1,000 mg (2 x 500 mg) PO Q8H PRN PRN Pain 1-10 Or Fever #0 tabs 09/01/25 cholecalciferol (vitamin D3) 25 mcg (1,000 unit) tablet 25 mcg PO DAILY #0 tabs 09/01/25 furosemide 40 mg tablet 40 mg PO DAILY #0 tabs 09/01/25 melatonin 3 mg tablet 3 mg PO QHS #0 tabs 09/01/25 nystatin 100,000 unit/gram topical powder 1 applic topical BID #0 grams 09/01/25 sennosides 8.6 mg-docusate sodium 50 mg tablet (Stimulant Laxative Plus) 1 tab PO BID #0 tabs 09/01/25 Hospital Course Operations None Procedures None Summary of Care Provided Minutes Spent on Discharge: 35 Hospital Course: 89 year old female with below past medical history hospitalized for encephalopathy 2/2 acute kidney injury, complicated by bilateral lower extremity wounds/cellulitis, admitted to TCU with debility, here for rehabilitation, strengthening, prior to discharge home. Discharge to [facility] 09/04/2025, pending appeal, intermediate, part b therapies. Physical Exam Const alert General Appearance: cooperative HEENT normocephalic Eyes PERRL and EOMs intact bilaterally Neck supple, no JVD and no carotid bruits Resp normal respiratory effort, normal air movement and clear to auscultation bilaterally Cardio regular rate and regular rhythm GI normal to inspection, nondistended, normoactive bowel sounds, non-tender and non-distended Extremity normal capillary refill Extremity Narrative: Bilateral lower extremity dressed. General Extremity: Negative for edema Skin no rashes or lesions noted General Skin Exam: no breakdown Psych affect normal Appearance: appropriate Weight / BMI Weight Weight: 83.461 kg Body Mass Index (BMI) 32.5 ABG / Lab / Microbiology Data 09/01/25 07:30 09/01/25 07:30 Laboratory: Laboratory Results - last 24 hr 09/01/25 06:07: POC Glucose 157 H 09/01/25 07:30: WBC 10.6, RBC 3.58 L, Hgb 11.3 L, Hct 35.1 L, MCV 98.0, MCH 31.6, MCHC 32.2, RDW Std Deviation 60.0 H, RDW Coeff of Marguerite 16.7 H, Plt Count 233, MPV 9.9, Immature Gran % (Auto) 2.000 H, Neut % (Auto) 63.0, Lymph % (Auto) 23.6, [place] % (Auto) 8.3, Eos % (Auto) 2.4, Baso % (Auto) 0.7, Absolute Neuts (auto) 6.7, Absolute Lymphs (auto) 2.51, Nucleated RBC % 0.2, Sodium 136, Potassium 4.0, Chloride 98, Carbon Dioxide 27.1, Anion Gap 11, BUN 29 H, Creatinine 0.69 L, Estim Creat Clear Calc 48.79 L, Est GFR (MDRD) Non-Af 83, BUN/Creatinine Ratio 41.8 H, Glucose 156 H, Calcium 8.9 Microbiology: Microbiology 08/28/25 05:48 Nasal Secretion SARS-CoV-2 Antigen (Rapid) - Final 08/21/25 05:28 Nasal Secretion SARS-CoV-2 Antigen (Rapid) - Final 08/19/25 05:18 Nasal Secretion SARS-CoV-2 Antigen (Rapid) - Final D/C Instructions Discharge Activity: Return to Normal Activity, May Shower and Use Walker Weight Bearing Status: Weight bearing as tolerated Call your doctor if you observe: Fever of 101 or Higher, Inability to urinate, Inability to have a bowel movement, Shortness of breath, Dizziness, Fainting spells, Swelling in the ankles, Chest pain and Uncontrolled pain DC O2, CPAP, BIPAP Needs Home O2 Discharge instructions: No Additional Instructions: Discharge to [facility] 09/04/2025, pending appeal, intermediate, part b therapies. Please Follow Up With: Glen Davis MD When: Cancel. Meaningful Use Info Meaningful Use Meaningful Use Diagnoses (Choose all that apply): None applicable Discharge Plan Admission Admit Date/Time: 08/18/25 17:10 Primary Reason for Your Visit: Debility. Attending Provider: Ayse Yen Primary Care Provider: Jessa Alberto Instructions Additional Instructions / Restrictions: Discharge to [facility] 09/04/2025, pending appeal, intermediate, part b therapies. Discharge Orders/Prescriptions Prescriptions: New acetaminophen 500 mg Tablet 1,000 mg PO Q8H PRN PRN (Reason: Pain 1-10 Or Fever) Qty: 0 0RF cholecalciferol (vitamin D3) 25 mcg (1,000 unit) Tablet 25 mcg PO DAILY Qty: 0 0RF furosemide 40 mg Tablet 40 mg PO DAILY Qty: 0 0RF melatonin 3 mg Tablet 3 mg PO QHS Qty: 0 0RF sennosides-docusate sodium [Stimulant Laxative Plus] 8.6-50 mg Tablet 1 tab PO BID Qty: 0 0RF nystatin 100,000 unit/gram Powder 1 applic topical BID Qty: 0 0RF Protocol: *Topical Application Instructions APPLICATION INSTRUCTIONS: under bilateral breasts for redness Continued levothyroxine 75 MCG tablet 75 mcg PO DAILY potassium chloride 20 mEq Tablet,Er Particles/Crystals 40 meq PO DAILYCM Qty: 0 0RF Rx Instructions: Supplement with Lasix. menthol-zinc oxide [Calmoseptine] 0.44-20.6 % Ointment 1 applic topical TID Qty: 0 0RF Protocol: *Topical Application Instructions APPLICATION INSTRUCTIONS: buttock Discontinued lisinopril 5 mg tablet 5 mg PO DAILY Januvia 25 mg tablet 25 mg PO DAILY insulin lispro [Humalog KwikPen Insulin] 100 unit/mL Insulin Pen See Protocol subcut ACHS Qty: 0 0RF Protocol: 4. Sliding Scale Insulin High-Med Dosing Condition: 150-199 mg/dl = 2 units Condition: 200-259 mg/dl = 4 units Condition: 260-324 mg/dl = 6 units Condition: 325-374 mg/dl = 8 units Condition: 375-409 mg/dl = 10 units Condition: 410-449 mg/dl = 11 units Condition: Greater than 449 call physician Protocol Text: Suggested for: - Patients on Total Daily Insulin Dose of 56-80 units - Patient who are known to be insulin resistant or septic HIGH MEDIUM DOSING ALGORITHM No Action furosemide 40 mg Tablet 40 mg PO DAILY Qty: 0 0RF Rx Instructions: No similar 40 mg daily for 3 days and then as needed as needed for leg swelling. Patient is prone for KATELYN Referrals / Follow Up: Jessa Alberto MD [Primary Care Provider, Family Practice] Disposition Disposition (needs filled in before D/C Order can be placed): NonSkilled NH/Intermed Care
--- NOTE | 2025-09-01 14:31 | PCM.TXEXTCAR ---
Diet Diet Order/Speech Therapy: INPATIENT Hospital Diet / Speech Therapy Order(s) 08/18/25 17:35 Diet: Cardiac: Calorie-Controlled Food consistency:: Regular Liquid Consistency:: Regular/Thin Dietary Modifications:: Consistent Carbohydrate Type of Dietary Supplement:: Joe B & D Diet Comments: joe with brkfst & dinner tray How many daily calories?: 1600 calorie Routine Orders/Code Status Code Status: DNRCC-A (No intubation.) DC O2, CPAP, BIPAP needs Home O2 Discharge instructions: No Wound(s) Bilateral buttock: Wound Type: shearing Dressing Change: triad cream Left leg posterior: Wound Type: Stasis Ulcer Dressing Change: AntiMicrobial (Aquacel AG, etc) Left leg lateral: Wound Type: Stasis Ulcer Dressing Change: AntiMicrobial (Aquacel AG, etc) Right lloyd upper: Wound Type: Stasis Ulcer Dressing Change: AntiMicrobial (Aquacel AG, etc) Right lloyd lower: Wound Type: Stasis Ulcer Dressing Change: AntiMicrobial (Aquacel AG, etc) Right lateral leg: Wound Type: Stasis Ulcer Dressing Change: AntiMicrobial (Aquacel AG, etc) Right posterior leg: Wound Type: Stasis Ulcer Dressing Change: AntiMicrobial (Aquacel AG, etc) Right medial leg: Wound Type: Stasis Ulcer Dressing Change: AntiMicrobial (Aquacel AG, etc) left lower leg: Wound Type: cluster of stasis ulcers Dressing Change: Aquacel AG right lower leg: Wound Type: cluster of stasis ulcers Dressing Change: AntiMicrobial (Aquacel AG, etc) Posterior R Knee: Wound Type: open area at crease Dressing Change: Dry Sterile Dressing Therapies Weight Bearing: Weight bearing as tolerated Extremity Affected:: Bilateral Lower Physical Therapy: Eval and Treat Occupational Therapy: Eval and Treat Problem/Diagnosis (1) Debility: Status: Acute Code(s): R53.81 - Other malaise (2) Acute renal failure superimposed on chronic kidney disease: Status: Resolved Code(s): N17.9 - Acute kidney failure, unspecified; N18.9 - Chronic kidney disease, unspecified Comment: due to dehydration (3) Venous stasis ulcers: Status: Chronic Code(s): I83.009 - Varicose veins of unspecified lower extremity with ulcer of unspecified site; L97.909 - Non-pressure chronic ulcer of unspecified part of unspecified lower leg with unspecified severity Comment: Both lower extremities (4) Nonhealing skin ulcer with fat layer exposed: Status: Acute Code(s): L98.492 - Non-pressure chronic ulcer of skin of other sites with fat layer exposed (5) Chronic venous insufficiency: Status: Chronic Code(s): I87.2 - Venous insufficiency (chronic) (peripheral) (6) CRF (chronic renal failure): Status: Chronic Code(s): N18.9 - Chronic kidney disease, unspecified Comment: Stage 2 - 3a (7) Stasis dermatitis of both legs: Status: Acute Code(s): I87.2 - Venous insufficiency (chronic) (peripheral) (8) Dementia: Status: Suspected Code(s): F03.90 - Unspecified dementia, unspecified severity, without behavioral disturbance, psychotic disturbance, mood disturbance, and anxiety (9) Hypertension: Status: Chronic Code(s): I10 - Essential (primary) hypertension (10) Diabetes: Status: Chronic Code(s): E11.9 - Type 2 diabetes mellitus without complications Comment: Type II Allergies/Procedures Done in Hospital Allergies No Known Allergies Allergy (Verified 02/12/23 19:03) Procedures: None Type of Care/Length of Stay Estimated LOS: More Than 30 Days Type of Care Needed: Intermediate Rehab Potential: Fair Prognosis: Fair Additional Orders/Day of Discharge Day of Discharge: 09/04/25 Dietary and Speech Recommendations Dietitian Recommendations/Changes: Continue 1600 amrki Consistent CHO/ Cardiac diet as ordered to help manage medical conditions- consider fluid restriction if MD feels indicated. Continue Joe w/ breakfast and dinner to help w/ wound healing Continue to follow and monitor for changes in res nutritional status and make additional rec/provide diet education as needed. Follow Up Care Please Follow Up With: Glen Davis MD When: x2 weeks Please Follow Up With: Latrice Loredo NP, SHIFT COMMANDER-C Discharge Plan Admission Admit Date/Time: 08/18/25 17:10 Primary Reason for Your Visit: Debility. Attending Provider: Ayse Yen Primary Care Provider: Jessa Alberto Instructions Additional Instructions / Restrictions: [facility], pending appeal, intermediate, part b therapies. Discharge Orders/Prescriptions Prescriptions: New acetaminophen 500 mg Tablet 1,000 mg PO Q8H PRN PRN (Reason: Pain 1-10 Or Fever) Qty: 0 0RF cholecalciferol (vitamin D3) 25 mcg (1,000 unit) Tablet 25 mcg PO DAILY Qty: 0 0RF furosemide 40 mg Tablet 40 mg PO DAILY Qty: 0 0RF melatonin 3 mg Tablet 3 mg PO QHS Qty: 0 0RF sennosides-docusate sodium [Stimulant Laxative Plus] 8.6-50 mg Tablet 1 tab PO BID Qty: 0 0RF nystatin 100,000 unit/gram Powder 1 applic topical BID Qty: 0 0RF Protocol: *Topical Application Instructions APPLICATION INSTRUCTIONS: under bilateral breasts for redness Continued levothyroxine 75 MCG tablet 75 mcg PO DAILY potassium chloride 20 mEq Tablet,Er Particles/Crystals 40 meq PO DAILYCM Qty: 0 0RF Rx Instructions: Supplement with Lasix. menthol-zinc oxide [Calmoseptine] 0.44-20.6 % Ointment 1 applic topical TID Qty: 0 0RF Protocol: *Topical Application Instructions APPLICATION INSTRUCTIONS: buttock Discontinued lisinopril 5 mg tablet 5 mg PO DAILY Januvia 25 mg tablet 25 mg PO DAILY insulin lispro [Humalog KwikPen Insulin] 100 unit/mL Insulin Pen See Protocol subcut ACHS Qty: 0 0RF Protocol: 4. Sliding Scale Insulin High-Med Dosing Condition: 150-199 mg/dl = 2 units Condition: 200-259 mg/dl = 4 units Condition: 260-324 mg/dl = 6 units Condition: 325-374 mg/dl = 8 units Condition: 375-409 mg/dl = 10 units Condition: 410-449 mg/dl = 11 units Condition: Greater than 449 call physician Protocol Text: Suggested for: - Patients on Total Daily Insulin Dose of 56-80 units - Patient who are known to be insulin resistant or septic HIGH MEDIUM DOSING ALGORITHM No Action furosemide 40 mg Tablet 40 mg PO DAILY Qty: 0 0RF Rx Instructions: No similar 40 mg daily for 3 days and then as needed as needed for leg swelling. Patient is prone for KATELYN Referrals / Follow Up: Jessa Alberto MD [Primary Care Provider, Family Practice] Disposition Disposition (needs filled in before D/C Order can be placed): NonSkilled NH/Intermed Care (2) Acute renal failure superimposed on chronic kidney disease Qualifiers: Acute renal failure type: unspecified Chronic kidney disease stage: stage 3 (moderate) Chronic kidney disease stage 3 subtype: stage 3a (GFR 45-59) Qualified Code(s): N17.9 - Acute kidney failure, unspecified; N18.31 - Chronic kidney disease, stage 3a (3) Venous stasis ulcers Qualifiers: Venous stasis ulcer site: calf Varicose vein presence: with varicose veins Laterality: unspecified laterality Non-pressure ulcer stage: with fat layer exposed Qualified Code(s): I83.002 - Varicose veins of unspecified lower extremity with ulcer of calf; L97.202 - Non-pressure chronic ulcer of unspecified calf with fat layer exposed (6) CRF (chronic renal failure) Qualifiers: Chronic kidney disease stage: stage 3 (moderate) Chronic kidney disease stage 3 subtype: stage 3a (GFR 45-59) Qualified Code(s): N18.31 - Chronic kidney disease, stage 3a (8) Dementia Qualifiers: Dementia type: vascular dementia Dementia severity: moderate Dementia behavioral or psychological symptom: with anxiety Qualified Code(s): F01.B4 - Vascular dementia, moderate, with anxiety (9) Hypertension Qualifiers: Hypertension type: unspecified Qualified Code(s): I10 - Essential (primary) hypertension (10) Diabetes Qualifiers: Diabetes mellitus type: type 2 Diabetes mellitus chcf insulin use: without manager long term care use Diabetes mellitus complication status: with kidney complications Diabetes mellitus complication detail: with chronic kidney disease Chronic kidney disease stage: stage 3 (moderate) Chronic kidney disease stage 3 subtype: stage 3a (GFR 45-59) Qualified Code(s): E11.22 - Type 2 diabetes mellitus with diabetic chronic kidney disease; N18.31 - Chronic kidney disease, stage 3a
--- NOTE | 2025-09-01 18:14 | CASEMGMT ---
Social Work Patient was issued a NOMNC today. Cut letter was presented over the phone to patient's son Ever, due to patient's history of dementia, by Ewelina PERDOMO (See note by Ewelina dated 09.01.2025 for further details). Son initiated appeal with Tindie and called IMANI back with Son also provided patient's Medicaid number: [id number] PASRR screen completed by Tank and [facility], anticipated d/c on Thursday09.04.25 if cut is upheld by Feebbo, as well as confirmation that a Level of Care is not needed. Per Max at [facility], patient has [facility], so no LOC is needed. No records received by [facility] with Medical Records Lema request, even 2 hours after referral initiated. IMANI called [employer] at [phone] and was sent to [employer] multiple times, though only left one detailed message with request as to where to send the lema request to. At roughly 1615 this underwriter mortgage loan called Heydi back as no records request received, despite website showing the request was sent. Chose patient option rather than provider option, and received a live surgical device sales representative, Radha. Provided Radha necessary information and was able to get Radha to send lema request. Radha stated to have all the documents already, sent by [facility] today. Explained this is nto the case as HIM is still waiting on the lema request and that could this have been [facility]. Radha looked into this further and noted [facility] did in fact send records. Radha sent this underwriter mortgage loan the records request and lema. This underwriter mortgage loan uploaded Records request and NOMNC to [facility] HIM for dissemination of requested records. Placed completed NOMNC and detailed notice of non-coverage on patient's chart. Both documents also placed in patient's room for patient and son. This underwriter mortgage loan reviewed with patient that son requested appeal on patient's behalf. Patient reports I would like that to stay at [facility] TCU longer. Reports to be sad to move. Plan: [facility]in Ramos, intermediate level of care when discharge is finalized, which could be as early at 09.04.25. Appeal pending with Tindie. -ERIC Jones
--- NOTE | 2025-09-01 19:59 | NURSING ---
Patient requesting legs to be down. educated pt on importance of elevating legs as much as possible. pt continued to decline putting legs up.
[2025-09-01] MEDS: Senna/Docusate Sodium 1 Tablet PO (20:45)
[2025-09-01] MEDS: MELATONIN 3 MG TABLET PO (20:46)
[2025-09-02 04:25] VITALS: BMI 32.8
--- NOTE | 2025-09-02 08:03 | CASEMGMT ---
Addendum entered by Nandini Allen 09/02/25 14:41: Social Work SW checked for updates in [facility], the process still states, all documents received. SW will follow up on Thursday. TYLER Breaux Addendum entered by Nandini Allen 09/02/25 10:06: Social Work SW did check again in [facility], the process still states, all documents received. SW called son Ever to update him. SW also inquired if he would be available Thursday morning if needed to speak w/our Medicaid specialist, due to questions around the type of Medicaid pt has and if it is the correct Medicaid for residential placement. Ever states he will be available after 9:15am. SW will let the SW in TCU know. TYLER Breaux Original Note: Social Work SW checked on appeals process in [facility], at this time the process states, all documents received. SW will check back later to see if any decision has yet been made. TYLER Breaux
[2025-09-02] MEDS: Potassium Chloride Oral Tablet 20 MEQ 40 MEQ PO (08:31)
[2025-09-02] MEDS: Senna/Docusate Sodium 1 Tablet PO ×2 (08:35→21:36)
[2025-09-02 15:33] VITALS: BP 115/69; PULSE 96; RESP 16; TEMP 36.9; O2SAT 94
[2025-09-02 21:00] VITALS: PULSE 74; O2SAT 96
[2025-09-02] MEDS: MELATONIN 3 MG TABLET PO (21:37)
--- NOTE | 2025-09-02 21:41 | NURSING ---
Patient requesting legs to be down. educated pt on importance of elevating legs as much as possible. pt continued to decline putting legs up.
[2025-09-03 02:20] VITALS: PULSE 80; O2SAT 94
[2025-09-03 04:51] VITALS: BMI 32.5
[2025-09-03] MEDS: Potassium Chloride Oral Tablet 20 MEQ 40 MEQ PO (10:02)
[2025-09-03] MEDS: Senna/Docusate Sodium 1 Tablet PO ×2 (10:06→22:27)
[2025-09-03 13:53] VITALS: BP 127/63; PULSE 79; RESP 16; TEMP 36.4; O2SAT 97
[2025-09-03] MEDS: MELATONIN 3 MG TABLET PO (22:27)
--- NOTE | 2025-09-03 23:47 | NURSING ---
Patient requesting legs to be down. educated pt on importance of elevating legs as much as possible. pt continued to decline putting legs up.
[2025-09-04 04:42] VITALS: PULSE 66; O2SAT 97
[2025-09-04 05:08] VITALS: BMI 32.7
[2025-09-04 07:26] VITALS: BP 146/71; PULSE 68; RESP 18; TEMP 35.9; O2SAT 95
[2025-09-04] MEDS: Potassium Chloride Oral Tablet 20 MEQ 40 MEQ PO (07:28)
[2025-09-04] MEDS: Senna/Docusate Sodium 1 Tablet PO (07:33)
--- NOTE | 2025-09-04 10:23 | CASEMGMT ---
Addendum entered by Davina Conner 09/04/25 11:40: LOC results received and approved.W/C transport scheduled for 1400. Updated son and nursing. Original Note: Social Work SW lost appeal. SW phoned Max at [facility] and inquired about next steps. Max confirmed pt has Medicaid, but apologized stating she was thinking pt had U[employer], but does not. Provided this worker with Medicaid number. Max denied pt needing a LTC RADHA application submitted, but needs a LOC. SW to request LOC and schedule transport after LOC is received. Max agreed. SW received call from son, and confirmed loss of appeal and transfer to [facility] this date. SW explained once the paperwork is completed, SW will update son on transfer. Son appreciative and will be bringing pt clothes for DC. LOC faxed at this time. Davina Conner POPULATION HEALTH MANAGER BRAKE OPERATOR
--- NOTE | 2025-09-04 12:22 | NURSING ---
REPORT CALLED TO JACQUELINE HOBBS AT THIS TIME. SPOKE WITH JENNY.
--- NOTE | 2025-09-04 12:44 | CASEMGMT ---
Social Work SW completed BIMS (09/30) and PHQ-2 () for MDS assessment. Davina Conner JOB LITHOGRAPHER CORPORATE PLANNER
== END 2025-09-04 14:50 | disposition intermediate care facility (04) | DRG 300 ==
PROVIDERS: Admitting Provider Internal Medicine; PCP Family Medicine; Referring Provider Internal Medicine; Visit Provider Internal Medicine
DX: I83.212 Varicose veins of right lower extremity with both ulcer of calf and inflammation (principal); F01.B4 Vascular dementia, moderate, with anxiety; L97.212 Non-pressure chronic ulcer of right calf with fat layer exposed; L97.222 Non-pressure chronic ulcer of left calf with fat layer exposed; N17.9 Acute kidney failure, unspecified; N18.31 Chronic kidney disease, stage 3a; E11.59 Type 2 diabetes mellitus with other circulatory complications; I12.9 Hypertensive chronic kidney disease with stage 1 through stage 4 chronic kidney disease, or unspecified chronic kidney disease; E03.9 Hypothyroidism, unspecified; Z79.4 Long term (current) use of insulin; I87.2 Venous insufficiency (chronic) (peripheral); E11.22 Type 2 diabetes mellitus with diabetic chronic kidney disease; I45.10 Unspecified right bundle-branch block; I83.222 Varicose veins of left lower extremity with both ulcer of calf and inflammation; L98.492 Non-pressure chronic ulcer of skin of other sites with fat layer exposed; Z79.84 Long term (current) use of oral hypoglycemic drugs; Z86.711 Personal history of pulmonary embolism; Z79.899 Other long term (current) drug therapy; Z79.890 Hormone replacement therapy
CPT/HCPCS: 36415; 74018; 80048; 80076; 82306; 82607; 82962; 83735; 83880; 84100; 84439; 85025; 85610; 87811; 92507; 92523; 93005; 97110; 97116; 97162; 97165; 97530; 97535; 97802; A4216